=== PATIENT | female | born 1935 | race Caucasian/White ===

== ENCOUNTER 2020-03-07 09:17 | Emergency (ER) | payer MEDICARE ==
[~2020-03-07] VITALS: Ht 172.7 cm; Wt 77.2 kg
--- NOTE | 2020-03-07 09:53 | NUR ---
GAVE INFORMATION THAT PATIENT HAD PROBLEMS ON FRIDAY AFTER [facility] WAS CALLED. 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
[2020-03-07 10:00] LABS: BILIRUBIN,URINE NEGATIVE (NEGATIVE); CLARITY,URINE CLEAR; COLOR,URINE YELLOW; GLUCOSE, URINE (UA) NEGATIVE (NEGATIVE); KETONES,URINE NEGATIVE (NEGATIVE); LEUKOCYTE ESTERASE ,URINE NEGATIVE (NEGATIVE); NITRITE,URINE NEGATIVE (NEGATIVE); PROTEIN,URINE TRACE (NEGATIVE)
--- NOTE | 2020-03-07 10:05 | ED General ---
General Chief Complaint: Neurological Problems Stated Complaint: PER DR PAULINO Nursing Triage Note: AMB TO ROOM WAS TOLD BY [facility] OFFICE TO COME TO ED PATIENT NOT HAPPY ABOUT IT. PATIENT REPORTS SHE FELL GETTING OUT OF [place]HT[place]ON FRIDAY NO C/O AFTER. HOSPICE NUSE WAS AT HOUSE ON SAT SEEING CONCERN THAT SHE MAY BE SLURRING HER WORDS AND LOW SA02 PATIENT DENIES SLURRING WORDS. NO C/O ON ADMIT EXCEPT SHE IS UNDER STRESS. THAT HER IS ON HOSPICE Nursing Sepsis Screen: No Definite Risk Source of Information: Patient, Other (Escapement Maker and PCP clinic) Exam Limitations: No Limitations History of Present Illness Date Seen by Provider: Mar 07, 2020 Time Seen by Provider: 09:30 Initial Comments This pleasant 84-year-old woman presents to the emergency room at the urging of her primary care office. Apparently there have been concerns about her over the weekend. Her raise drill operator reported that she was having difficulty figuring out how to get her vehicle out of park when leaving [place] on Friday. A nurse practitioner who was present there that day reported she had significant swelling in her legs and her pulse oximeter readings were low, in the 70s. She has also been noted to be limping because of a fall out of the bathtub several days ago. She has some bruising on her right medial calf and knee. She walks into the ER with a slight limp. Her 's hospice nurse apparently also reported she had some slurring of speech. It was also reported she has been more argumentative with her . She is under much stress presently with her being on hospice and having recent out-of-town company. She has not wanted to come to the emergency room and is adamant that she does not want to be admitted. She denies any symptoms of infectious illness at this time such as nausea, diarrhea, cough, shortness of breath, or fever. She denies any head or neck injury in relation to her fall. Allergies and Home Medications Allergies Coded Allergies: No Known Drug Allergies (Unverified , 03/07/20) Home Medications Apixaban 5 Mg Tablet, 5 MG PO BID TAKE 2 TABLETS BID X 7 DAYS, THEN 1 TABLET BID Prescribed by: HEMA WOOTEN on 03/07/20 1243 Cefdinir 300 Mg Capsule, 300 MG PO BID Prescribed by: HEMA WOOTEN on 03/07/20 1243 Patient Home Medication List Home Medication List Reviewed: Yes Review of Systems Review of Systems Constitutional: no symptoms reported EENTM: no symptoms reported Respiratory: see HPI Cardiovascular: no symptoms reported Gastrointestinal: no symptoms reported Genitourinary: no symptoms reported : No Musculoskeletal: see HPI Skin: see HPI Psychiatric/Neurological: See HPI Hematologic/Lymphatic: No Symptoms Reported Immunological/Allergic: no symptoms reported Past Jgeyldj-Bnqwyd-Kcdzwl Hx Past Med/Social Hx: Reviewed Nursing Past Med/Soc Hx Patient Social History Alcohol Use: Denies Use Recreational Drug Use: No Smoking Status: Never a Smoker Recent Foreign Travel: No Contact w/Someone Who Travel: No Recent Infectious Disease Expo: No Past Medical History Surgeries: Yes Orthopedic Respiratory: No Cardiac: Yes Hypertension Neurological: No : No Reproductive Disorders: No Genitourinary: No Gastrointestinal: No Musculoskeletal: No Endocrine: Yes Hypothyroidsim Cancer: No Psychosocial: No Physical Exam Vital Signs Vital Signs - First Documented 03/07/20 09:23 Temp 36.4 Pulse 85 Resp 18 B/P (MAP) 199/89 (125) Pulse Ox 97 O2 Delivery Room Air Capillary Refill : Less Than 3 Seconds Height, Weight, BMI Height: '" Weight: lbs. oz. kg; 25.00 BMI Method: General Appearance: No Apparent Distress, WD/WN HEENT: PERRL/EOMI, Normal ENT Inspection Neck: Normal Inspection Respiratory: Lungs Clear, Normal Breath Sounds, No Accessory Muscle Use Cardiovascular: Regular Rate, Rhythm, No Murmur, Other (Mild lower extremity edema equal bilaterally) Gastrointestinal: Normal Bowel Sounds, Non Tender, Soft Extremity: Pedal Edema (Mild, equal bilaterally), Other (Small bruise on the a nterior medial aspect of the right knee. 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 Gait normal except for slight limp from right leg injury) Skin: Normal Color, Warm/Dry, Ecchymosis Progress/Results/Core Measures Suspected Sepsis Recent Fever Within 48 Hours: No Infection Criteria Present: None New/Unexplained Altered Menta: No Sepsis Screen: No Definite Risk SIRS Temperature: Pulse: 85 Respiratory Rate: 18 Laboratory Tests 03/07/20 09:54: White Blood Count 12.7H Blood Pressure 199 /89 Mean: 125 Laboratory Tests 03/07/20 09:54: Creatinine 1.57H, Platelet Count 204, Total Bilirubin 0.8 Results/Orders Lab Results Laboratory Tests Test 03/07/20 09:48 03/07/20 09:54 Range/Units Urine Color YELLOW Urine Clarity CLEAR Urine pH 6.0 5-9 Urine Specific [place] 1.010 L 1.016-1.022 Urine Protein TRACE H NEGATIVE Urine Glucose (UA) NEGATIVE NEGATIVE Urine Ketones NEGATIVE NEGATIVE Urine Nitrite NEGATIVE NEGATIVE Urine Bilirubin NEGATIVE NEGATIVE Urine Urobilinogen 0.2 < = 1.0 MG/DL Urine Leukocyte Esterase NEGATIVE NEGATIVE Urine RBC (Auto) TRACE-L NEGATIVE Urine RBC NONE /HPF Urine WBC 5-10 H /HPF Urine Squamous Epithelial Cells 5-10 /HPF Urine Crystals NONE /LPF Urine Bacteria TRACE /HPF Urine Casts PRESENT /LPF Urine Hyaline Casts 2-5 H /LPF Urine Mucus NEGATIVE /LPF Urine Culture Indicated YES White Blood Count 12.7 H 4.3-11.0 10^3/uL Red Blood Count 3.72 L 3.80-5.11 10^6/uL Hemoglobin 11.4 L 11.5-16.0 g/dL Hematocrit 35 35-52 % Mean Corpuscular Volume 95 80-99 fL Mean Corpuscular Hemoglobin 31 25-34 pg Mean Corpuscular Hemoglobin Concent 32 32-36 g/dL Red Cell Distribution Width 13.3 10.0-14.5 % Platelet Count 204 130-400 10^3/uL Mean Platelet Volume 10.6 9.0-12.2 fL Immature Granulocyte % (Auto) 2 % Neutrophils (%) (Auto) 79 H 42-75 % Lymphocytes (%) (Auto) 8 L 12-44 % Monocytes (%) (Auto) 9 0-12 % Eosinophils (%) (Auto) 1 0-10 % Basophils (%) (Auto) 0 0-10 % Neutrophils # (Auto) 10.1 H 1.8-7.8 10^3/uL Lymphocytes # (Auto) 1.1 1.0-4.0 10^3/uL Monocytes # (Auto) 1.2 H 0.0-1.0 10^3/uL Eosinophils # (Auto) 0.1 0.0-0.3 10^3/uL Basophils # (Auto) 0.0 0.0-0.1 10^3/uL Immature Granulocyte # (Auto) 0.3 H 0.0-0.1 10^3/uL Sodium Level 138 135-145 MMOL/L Potassium Level 3.3 L 3.6-5.0 MMOL/L Chloride Level 104 98-107 MMOL/L Carbon Dioxide Level 23 21-32 MMOL/L Anion Gap 11 5-14 MMOL/L Blood Urea Nitrogen 33 H 7-18 MG/DL Creatinine 1.57 H 0.60-1.30 MG/DL Estimat Glomerular Filtration Rate 32 BUN/Creatinine Ratio 21 Glucose Level 181 H 70-105 MG/DL Calcium Level 8.1 L 8.5-10.1 MG/DL Corrected Calcium 8.6 8.5-10.1 MG/DL Magnesium Level 2.3 1.6-2.4 MG/DL Total Bilirubin 0.8 0.1-1.0 MG/DL Aspartate Amino Transf (AST/SGOT) 43 H 5-34 U/L Alanine Aminotransferase (ALT/SGPT) 39 0-55 U/L Alkaline Phosphatase 50 40-136 U/L B-Type Natriuretic Peptide 179.5 H <100.0 PG/ML Total Protein 6.8 6.4-8.2 GM/DL Albumin 3.4 3.2-4.5 GM/DL Thyroid Stimulating Hormone (TSH) 6.59 H 0.35-4.94 UIU/ML Free Thyroxine 1.02 0.70-1.48 NG/DL My Orders Orders - HEMA MARSH MD Cbc With Automated Diff (03/07/20 09:40) Comprehensive Metabolic Panel (03/07/20 09:40) Magnesium (03/07/20 09:40) Thyroid Stimulating Hormone (03/07/20 09:40) Ua Culture If Indicated (03/07/20 09:40) Us Venous Lower Ext Rt (03/07/20 09:40) Chest 1 View, Ap/Pa Only (03/07/20 09:58) BNP (03/07/20 09:58) Urine Culture (03/07/20 09:48) Ct Head Wo (03/07/20 10:23) Free T4 (Free Thyroxine) (03/07/20 11:16) Apixaban Tablet (Eliquis Tablet) (03/07/20 11:45) Medications Given in ED Current Medications Medications Dose Ordered Sig/Connie Route Start Time Stop Time Status Last Admin Dose Admin Apixaban 2.5 mg ONCE ONCE PO 03/07/20 11:45 03/07/20 11:46 DC 03/07/20 12:18 2.5 MG Vital Signs/I&O 03/07/20 03/07/20 09:23 12:38 Temp 36.4 Pulse 85 71 Resp 18 18 B/P (MAP) 199/89 (125) 156/87 Pulse Ox 97 97 O2 Delivery Room Air Room Air Capillary Refill : Less Than 3 Seconds Blood Pressure Mean: 125 Progress Note : Progress Note Patient was seen and examined. Labs were obtained. Because of the swelling of the right calf after injury, ultrasound was obtained. This revealed a DVT. Patient was started on Eliquis. Since we were already into the afternoon hours, a small dose of 2.5 mg was given in the ER. She will then start her full dose this evening on a regular schedule. We discussed use of compression stockings. In the short-term she should elevate her foot rather than using compression stockings. Then, if compression stockings are needed, she should have graduated stockings appropriately fitted or she should seek care from a lymphedema specialist. Antibiotics were prescribed to treat urinary tract infection and sinusitis. Mild renal impairment was noted. Because of her significant edema, no IV fluids were administered. Instead, she was instructed to push oral hydration. The work-up and treatments were discussed with Gely at Dr. Paulino's office. Diagnostic Imaging Diagonstic Imaging: CT Plain Films/CT/US/NM/MRI: head Comments NAME: JUDITH EUGENE [facility] REC#: [id number] PT STATUS: DEP ER : 1935 PHYSICIAN: HEMA MARSH MD ADMIT DATE: 03/07/20/ER Signed Date of Exam:03/07/20 CT HEAD WO PROCEDURE: CT head without contrast. TECHNIQUE: Multiple contiguous axial images were obtained through the brain without the use of intravenous contrast. Auto Exposure Controls were utilized during the CT exam to meet ALARA standards for radiation dose reduction. INDICATION: Fall. Slurred speech. COMPARISON: None. FINDINGS: Mild generalized cerebral and cerebellar parenchymal volume loss. Moderate leukoaraiosis. No intracranial hemorrhage, mass effect, hydrocephalus, or extra-axial fluid collections. No CT evidence of a territorial infarction. Osseous structures are intact. Mucosal thickening and frothy secretions in the right sphenoid. The mastoids are clear. IMPRESSION: 1. No acute intracranial CT findings. 2. Mucosal thickening and frothy secretions in the right sphenoid sinus. Dictated by: Dictated on workstation # [id number] Dict: 03/07/20 1100 Trans: 03/07/20 1649 [facility] [id number] Interpreted by: DAVID CRESPO MD Electronically signed by: DAVID CRESPO MD 03/07/201648 Reviewed: Reviewed by Me Diagonstic Imaging: Xray Plain Films/CT/US/NM/MRI: chest Comments NAME: JUDITH EUGENE MED REC#: [id number] PT STATUS: REG ER : 1935 PHYSICIAN: HEMA MARSH MD ADMIT DATE: 03/07/20/ER Draft Date of Exam:03/07/20 CHEST 1 VIEW, AP/PA ONLY INDICATION: Hypoxia. COMPARISON: None. FINDINGS: Single frontal radiographic view of the chest was obtained and shows normal cardiac silhouette and pulmonary vasculature. There is calcified aortic atherosclerosis. Lungs show hyperlucent appearance with flattening of the hemidiaphragms consistent with underlying COPD changes. There is 1.6 x 1.1 cm nodular opacity within the lateral margins of the right upper lung. There is no large effusion or pneumothorax. Osseous structures show no acute abnormalities. IMPRESSION: 1. No evidence of failure or focal infiltrate. 2. Nodular opacity within the lateral margins of the right upper lung. Further characterization with dedicated CT chest is recommended and could be performed on nonemergent basis. 2. Background COPD. Dictated on workstation # [id number] Dict: 03/07/20 1032 Trans: 03/07/20 1038 [facility] [id number] Interpreted by: TEZ DIETRICH MD Reviewed: Reviewed by Me Diagonstic Imaging: Ultrasound Plain Films/CT/US/NM/MRI: leg Comments NAME: JUDITH EUGENE MED REC#: [id number] PT STATUS: DEP ER : 1935 PHYSICIAN: HEMA MARSH MD ADMIT DATE: 03/07/20/ER Signed Date of Exam:03/07/20 US VENOUS LOWER EXT RT PROCEDURE: US right lower extremity venous. TECHNIQUE: Multiple Real-time grayscale images were obtained over the right lower extremity in various projections. Additional spectral analysis and color Doppler duplex images were also obtained. INDICATION: Pain and swelling after a fall. FINDINGS: There is segmental nearly completely occlusive deep vein thrombus throughout the length of the femoral vein in the thigh and extending into the popliteal vein. The major calf veins are patent as well as the common femoral vein. The thrombus is hypoechoic and is presumed recent. IMPRESSION: 1. Long segmental deep vein thrombus is nearly completely occlusive throughout the length of the femoral vein within the thigh extending into the popliteal vein. 2. Patency of the common femoral vein. Dictated by: Dictated on workstation # [id number] Dict: 03/07/20 1030 Trans: 03/07/20 1643 [id number] Interpreted by: KWABENA GONZALEZ Electronically signed by: KWABENA GONZALEZ 03/07/20 1643 Reviewed: Reviewed by Me Departure Impression Primary Impression: Right leg DVT Qualified Codes: I82.411 - Acute embolism and thrombosis of right femoral vein Additional Impressions: Abnormal chest x-ray Acute sinusitis Qualified Codes: J01.30 - Acute sphenoidal sinusitis, unspecified Urinary tract infection Qualified Codes: N39.0 - Urinary tract infection, site not specified Renal insufficiency Contusion of right leg Qualified Codes: S80.11XA - Contusion of right lower leg, initial encounter Fall in bathtub Qualified Codes: W18.2XXA - Fall in (into) shower or empty bathtub, initial encounter Disposition: 01 HOME, SELF-CARE Condition: Stable Departure-Patient Inst. Decision time for Depature: 12:20 Referrals: AMBER PAULINO MD (PCP/Family) Primary Care Physician Patient Instructions: Deep Vein Thrombosis (Blood Clots in the Legs), Urinary Tract Infection, Adult (DC) Add. Discharge Instructions: 1. Urinary tract infection - Drink plenty of clear liquids and complete your antibiotic as prescribed. Follow-up on urine culture results with Dr. Paulino's office. 2. Abnormal x-ray - Please discuss your abnormal chest x-ray with Dr. Paulino's office and determine how you will follow this if you do decide to follow with future imaging. 3. DVT (blood clot) - Continue with Eliquis as prescribed. It is important that you do not miss any doses. Be very careful regarding traumas such as falls. If you have any significant injuries including falls in which you hit your head, it is important you present to the emergency room for evaluation. Also present to the emergency room with any unusual bleeding. 4. Sinusitis - This can be treated with the same antibiotic you are taking for bladder infection. 5. Renal insufficiency - Your kidney function is not as good as usual. Please increase clear liquid intake. 6. If you need assistance with getting the blood thinner medications due to cost, please contact Dr. Paulino's office as they have means to help. 7. Follow-up with Dr. Paulino's office in the next 1 to 2 weeks. Please call today for an appointment. All discharge instructions reviewed with patient and/or family. Voiced understanding. Scripts Apixaban (Eliquis) 5 Mg Tablet 5 MG PO BID for 30 Days, #72 TAB TAKE 2 TABLETS BID X 7 DAYS, THEN 1 TABLET BID Prov: HEMA MARSH MD 03/07/20 Cefdinir (Cefdinir) 300 Mg Capsule 300 MG PO BID, #14 CAP 0 Refills Prov: HEMA MARSH MD 03/07/20 Copy Copies To 1: AMBER PAULINO MD, JOSHUA T MD Mar 07, 2020 10:05
[2020-03-07 10:07] LABS: BASOPHILS % (AUTO) 0 % (0-10); EOSINOPHILS # (AUTO) 0.1 10^3/uL (0.0-0.3); EOSINOPHILS % (AUTO) 1 % (0-10); HEMATOCRIT 35 % (35-52); HEMOGLOBIN 11.4 g/dL (11.5-16.0); LYMPHOCYTES # (AUTO) 1.1 10^3/uL (1.0-4.0); LYMPHOCYTES % (AUTO) 8 % (12-44); MEAN CORPUSCULAR HEMOGLOBIN 31 pg (25-34); MEAN CORPUSCULAR HGB CONC 32 g/dL (32-36); MEAN CORPUSCULAR VOLUME 95 fL (80-99); MEAN PLATELET VOLUME 10.6 fL (9.0-12.2); MONOCYTES # (AUTO) 1.2 10^3/uL (0.0-1.0); MONOCYTES % (AUTO) 9 % (0-12); NEUTROPHILS # (AUTO) 10.1 10^3/uL (1.8-7.8); NEUTROPHILS % (AUTO) 79 % (42-75); PLATELET COUNT 204 10^3/uL (130-400); WHITE BLOOD COUNT 12.7 10^3/uL (4.3-11.0)
[2020-03-07 10:10] LABS: BACTERIA,URINE TRACE /HPF
[2020-03-07 10:17] LABS: ALBUMIN 3.4 GM/DL (3.2-4.5); POTASSIUM 3.3 MMOL/L (3.6-5.0)
[2020-03-07 10:18] LABS: CALCIUM 8.1 MG/DL (8.5-10.1)
[2020-03-07 10:20] LABS: TOTAL PROTEIN 6.8 GM/DL (6.4-8.2)
[2020-03-07 10:21] LABS: BILIRUBIN,TOTAL 0.8 MG/DL (0.1-1.0)
[2020-03-07 10:23] LABS: CREATININE SERUM 1.57 MG/DL (0.60-1.30)
[2020-03-07 10:26] LABS: MAGNESIUM 2.3 MG/DL (1.6-2.4)
--- NOTE | 2020-03-07 10:38 | Diagnostic Imaging Report ---
INDICATION: Hypoxia. COMPARISON: None. FINDINGS: Single frontal radiographic view of the chest was obtained and shows normal cardiac silhouette and pulmonary vasculature. There is calcified aortic atherosclerosis. Lungs show hyperlucent appearance with flattening of the hemidiaphragms consistent with underlying COPD changes. There is 1.6 x 1.1 cm nodular opacity within the lateral margins of the right upper lung. There is no large effusion or pneumothorax. Osseous structures show no acute abnormalities. IMPRESSION: 1. No evidence of failure or focal infiltrate. 2. Nodular opacity within the lateral margins of the right upper lung. Further characterization with dedicated CT chest is recommended and could be performed on nonemergent basis. 2. Background COPD. Dictated by: Dictated on workstation # [id number]
--- NOTE | 2020-03-07 10:38 | Diagnostic Imaging Report ---
PROCEDURE: US right lower extremity venous. TECHNIQUE: Multiple Real-time grayscale images were obtained over the right lower extremity in various projections. Additional spectral analysis and color Doppler duplex images were also obtained. INDICATION: Pain and swelling after a fall. FINDINGS: There is segmental nearly completely occlusive deep vein thrombus throughout the length of the femoral vein in the thigh and extending into the popliteal vein. The major calf veins are patent as well as the common femoral vein. The thrombus is hypoechoic and is presumed recent. IMPRESSION: 1. Long segmental deep vein thrombus is nearly completely occlusive throughout the length of the femoral vein within the thigh extending into the popliteal vein. 2. Patency of the common femoral vein. Dictated by: Dictated on workstation # [id number]
--- NOTE | 2020-03-07 11:04 | Diagnostic Imaging Report ---
PROCEDURE: CT head without contrast. TECHNIQUE: Multiple contiguous axial images were obtained through the brain without the use of intravenous contrast. Auto Exposure Controls were utilized during the CT exam to meet ALARA standards for radiation dose reduction. INDICATION: Fall. Slurred speech. COMPARISON: None. FINDINGS: Mild generalized cerebral and cerebellar parenchymal volume loss. Moderate leukoaraiosis. No intracranial hemorrhage, mass effect, hydrocephalus, or extra-axial fluid collections. No CT evidence of a territorial infarction. Osseous structures are intact. Mucosal thickening and frothy secretions in the right sphenoid. The mastoids are clear. IMPRESSION: 1. No acute intracranial CT findings. 2. Mucosal thickening and frothy secretions in the right sphenoid sinus. Dictated by: Dictated on workstation # [id number]
[2020-03-07] MEDS ORDERED: APIXABAN 2.5 MG (ELIQUIS) TABLET PO ONE (11:45)
--- NOTE | 2020-03-07 12:09 | NUR ---
DR FRIAS TO ROOM TO DISCUSS RELULTS WITH PATIENT
[2020-03-07] MEDS ORDERED: CEFD300C3 PO ×2 (12:31→12:43)
[2020-03-07] MEDS ORDERED: APIX2.5T PO (12:31)
[2020-03-07 12:38] VITALS: BP 156/87
[2020-03-07] MEDS ORDERED: APIX5TAB PO (12:43)
== END 2020-03-07 12:38 | disposition home or self-care (01) ==
LOC: EDUNIT# 09:17 → ER 09:19
DX: S80.11XA Contusion of right lower leg, initial encounter (principal); S80.01XA Contusion of right knee, initial encounter; I82.401 Acute embolism and thrombosis of unspecified deep veins of right lower extremity; N28.9 Disorder of kidney and ureter, unspecified; N39.0 Urinary tract infection, site not specified; J01.90 Acute sinusitis, unspecified; R91.8 Other nonspecific abnormal finding of lung field; Z79.01 Long term (current) use of anticoagulants; W18.2XXA Fall in (into) shower or empty bathtub, initial encounter
CPT/HCPCS: 36415; 70450; 71045; 80053; 81000; 83735; 83880; 84439; 84443; 85025; 87088

== ENCOUNTER 2021-02-12 14:05 | Outpatient (RCR) | payer MEDICARE ==
[~2021-02-12 14:05] MED LIST: APIX2.5T PO; APIX5TAB PO; CEFD300C3 PO
== END 2021-03-16 | disposition home or self-care (01) ==
LOC: ONC 14:05
PROVIDERS: ATTEND Internal Medicine Hematology & Oncology
DX: I82.401 Acute embolism and thrombosis of unspecified deep veins of right lower extremity (principal)
CPT/HCPCS: 99214

== ENCOUNTER → 2021-09-07 | Outpatient (CLI) | payer MEDICARE ==
[~2021-09-07] MED LIST changes: +ACET-2267 PO; +AMLO-251 PO; +AREDS 2 PO; +CALC-250 PO; +FERR-84 PO; +FURO-125 PO; +LACT1CAP7 PO; +LEVO88CA4 PO; +LOSA25TA41 PO; +METR-145 PO; +MULT-878 PO; +PANT40TA52 PO; +POTA-51 PO; +PYRI50TA PO; +SYSTANE; +VANC1.2526 IV; +VANC125C5 PO
--- NOTE | 2021-09-07 14:13 | Diagnostic Imaging Report ---
PROCEDURE: US Venous Lower Ext Jacques. TECHNIQUE: Multiple real-time grayscale images were obtained over the lower extremities in various projections, bilaterally. Additional duplex Doppler and color Doppler images were also obtained. INDICATION: Indication: DVT. Comparison 03/07/2020. FINDINGS: The visualized deep and superficial venous system is patent. There is no DVT. IMPRESSION: Negative lower extremity venous Doppler. Dictated by: Dictated on workstation # [id number]
--- NOTE | 2021-09-07 15:24 | Diagnostic Imaging Report ---
Indication: Fall with rib pain and cough. Time of Exam: 1:15 PM Comparison is made with prior chest from 03/07/2020. The heart is enlarged but stable. There appears to be a small left effusion. There is some atelectasis in left base. Lungs are clear. No pneumothorax is seen. No definite displaced rib fractures identified. Impression: Small left effusion. Dictated by: Dictated on workstation # [id number]
--- NOTE | 2021-09-07 15:25 | Diagnostic Imaging Report ---
Indication: Fall with left rib pain. Time of Exam: 1:17 PM Multiple views left ribs were obtained. No displaced rib fracture is detected. There is some minimal pleural fluid in the left base and atelectasis left base. No pneumothorax is seen. Impression: No displaced rib fractures identified. There does appear to be some trace pleural fluid and atelectasis left base. Dictated by: Dictated on workstation # [id number]
== END ==
LOC: RAD 13:30
PROVIDERS: ATTEND Nurse Practitioner Family
DX: J90 Pleural effusion, not elsewhere classified (principal); R60.0 Localized edema
CPT/HCPCS: 71046; 71100; 93970

== ENCOUNTER 2021-10-06 08:31 | Inpatient (IN) | payer MEDICARE ==
[~2021-10-06] VITALS: Ht 172.7 cm; Wt 74.0 kg
[~2021-10-06 08:31] MED LIST changes: -ACET-2267 PO; -AMLO-251 PO; -AREDS 2 PO; -CALC-250 PO; -FERR-84 PO; -FURO-125 PO; -LACT1CAP7 PO; -LEVO88CA4 PO; -LOSA25TA41 PO; -METR-145 PO; -MULT-878 PO; -PANT40TA52 PO; -POTA-51 PO; -PYRI50TA PO; -SYSTANE; -VANC1.2526 IV; -VANC125C5 PO
[2021-10-06 09:22] LABS: BASOPHILS # (AUTO) 0.1 10^3/uL (0.0-0.1); BASOPHILS % (AUTO) 1 % (0-10); EOSINOPHILS # (AUTO) 0.2 10^3/uL (0.0-0.3); EOSINOPHILS % (AUTO) 2 % (0-10); HEMATOCRIT 29 % (35-52); HEMOGLOBIN 9.5 g/dL (11.5-16.0); LYMPHOCYTES # (AUTO) 1.3 10^3/uL (1.0-4.0); LYMPHOCYTES % (AUTO) 14 % (12-44); MEAN CORPUSCULAR HEMOGLOBIN 31 pg (25-34); MEAN CORPUSCULAR HGB CONC 33 g/dL (32-36); MEAN CORPUSCULAR VOLUME 95 fL (80-99); MEAN PLATELET VOLUME 8.8 fL (9.0-12.2); MONOCYTES # (AUTO) 0.9 10^3/uL (0.0-1.0); MONOCYTES % (AUTO) 10 % (0-12); NEUTROPHILS # (AUTO) 6.4 10^3/uL (1.8-7.8); NEUTROPHILS % (AUTO) 73 % (42-75); PLATELET COUNT 454 10^3/uL (130-400); WHITE BLOOD COUNT 8.9 10^3/uL (4.3-11.0)
[2021-10-06 09:27] LABS: ALBUMIN 2.9 GM/DL (3.2-4.5)
[2021-10-06 09:29] LABS: CALCIUM 8.4 MG/DL (8.5-10.1)
[2021-10-06 09:30] LABS: TOTAL PROTEIN 6.3 GM/DL (6.4-8.2)
[2021-10-06 09:32] LABS: BILIRUBIN,TOTAL 0.5 MG/DL (0.1-1.0)
[2021-10-06 09:34] LABS: CREATININE SERUM 0.9 MG/DL (0.60-1.30)
--- NOTE | 2021-10-06 09:49 | Diagnostic Imaging Report ---
INDICATION: Pelvic pain. COMPARISON: None available. TECHNIQUE: Three radiographs of the pelvis and left hip dated 10/06/2021. FINDINGS: Degenerative changes within the lower lumbar spine are partially visualized. The sacroiliac joints and pubic symphysis appear intact. No acute fracture or dislocation. No destructive osseous process. 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 Minimal flattening of the left femoral head is also noted. No suspicious radiopaque foreign body. 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 Dictated by: Dictated on workstation # [id number]
--- NOTE | 2021-10-06 09:49 | Diagnostic Imaging Report ---
EXAMINATION: Chest, 1 view. HISTORY: Edema. COMPARISON: 03/07/2020. FINDINGS: The lung volumes are normal. No focal consolidation is seen. No large pleural effusion or pneumothorax is seen. The cardiomediastinal silhouette is normal in size and contour. There is calcified aortic atherosclerotic plaque. No acute osseous abnormality is seen. IMPRESSION: No acute pleuroparenchymal process. No evidence of overt pulmonary edema. Dictated by: Dictated on workstation # [id number]
[2021-10-06 09:58] LABS: FREE T4 (FREE THYROXINE) 0.83 NG/DL (0.70-1.48)
[2021-10-06] MEDS ORDERED: HYDROcodone/APAP 5 MG/325 MG (LORTAB) TAB PO ONE (10:45)
--- NOTE | 2021-10-06 10:55 | Diagnostic Imaging Report ---
PROCEDURE: US Venous Lower Ext Jacques. TECHNIQUE: Multiple real-time grayscale images were obtained over the lower extremities in various projections, bilaterally. Additional duplex Doppler and color Doppler images were also obtained. INDICATION: Edema. COMPARISON: 09/07/2021. FINDINGS: The examination is slightly limited secondary to patient body habitus. Within the limits of the exam, there is normal flow, compression, and augmentation within the visualized deep venous structures of the bilateral lower extremities. IMPRESSION: No evidence of deep venous thrombosis within the bilateral lower extremities within the limits of the exam. Dictated by: Dictated on workstation # [id number]
[2021-10-06] MEDS ORDERED: cefTRIAXone 1 GM PRE-MIX 50 ML IV STA (12:22)
--- NOTE | 2021-10-06 12:26 | ED General ---
General Chief Complaint: Lower Extremity Stated Complaint: LEG SWELLING Nursing Triage Note: arrives via ems to room 5 with c/o pain 8/10 in her legs. significant swelling noted with blistering and weeping to bilateral legs. patient states she has been waiting for her to pass on, since he was on hospice, before she left him to take care of this chronic exacerbation of leg swelling. She verbaizes hx of HTN, BLOOD CLOTS, THYROID DISEASE, LOWER EXTREMITY SWELLING. Source of Information: Patient, EMS Exam Limitations: No Limitations History of Present Illness Date Seen by Provider: Oct 06, 2021 Time Seen by Provider: 08:59 Initial Comments This 85-year-old woman presents to the emergency room with complaints of severe lower extremity swelling and erythema. She has had progressive problems with worsening swelling over the past couple of years, especially since having a DVT. She received short-term treatment with anticoagulants but no longer is anticoagulated. Today her swelling became so severe that she could not appropriately and safely ambulate, so she called EMS. Patient is taking diuretics but has had worsening swelling despite that. She reports having a difficult time caring for herself while also caring for her who recently after being on hospice for many months. She denies any chest pain or shortness of breath. Dr. Adkins is her primary care provider. She has warm erythema on the skin of the lower legs bilaterally. Patient also had a fall over a week ago and complains of some hip pain. Allergies and Home Medications Allergies Coded Allergies: No Known Drug Allergies (Unverified , 10/06/21) Patient Home Medication List Home Medication List Reviewed: Yes Acetaminophen (Tylenol Extra Strength) 500 Mg Tablet, 500 MG PO TID PRN for PAIN-MILD (1-4), (Reported) Entered as Reported by: NINO CAVAZOS on 10/08/21936 Last Action: Reviewed Cholecalciferol (Vitamin D3) (Vitamin D3) 125 Mcg (5000 Unit) Tablet, 125 MCG PO DAILY, (Reported) Entered as Reported by: NINO CAVAZOS on 10/08/2174 Last Action: Reviewed Ferrous Sulfate (Iron) 325 Mg (65 Mg Iron) Tablet, 325 MG PO Q48H, (Reported) Entered as Reported by: NINO CAVAZOS on 10/08/21 0953 Last Action: Reviewed Furosemide (Lasix) 20 Mg Tablet, 20 MG PO DAILY PRN, (Reported) Entered as Reported by: EILEEN MELÉNDEZ on 10/06/211644 Last Action: Reviewed Levothyroxine Sodium (Levothyroxine) 88 Mcg Capsule, 88 MCG PO DAILY, (Reported) Entered as Reported by: EILEEN MELÉNDEZ on 10/06/21 1640 Last Action: Reviewed Multivitamins-Min/FA/Ginkgo (One Daily For Women 50+ Adv Tb) 400 Mcg-120 Mg Tablet, 1 EACH PO DAILY, (Reported) Entered as Reported by: NINO CAVAZOS on 10/08/21 0935 Last Action: Reviewed Potassium Chloride (Potassium Chloride) 20 Meq Tablet.er, 20 MEQ PO DAILY PRN, (Reported) Entered as Reported by: EILEEN MELÉNDEZ on 10/06/21 164 Last Action: Reviewed Pyridoxine HCl (Vitamin B-6) 50 Mg Tablet, 50 MG PO DAILY, (Reported) Entered as Reported by: NINO CAVAZOS on 10/08/21 0934 Last Action: Reviewed [Areds 2] , 1 CAP PO BID, (Reported) Entered as Reported by: EILEEN MELÉNDEZ on 10/06/211643 Last Action: Reviewed [Systane] , 1 DROP BID, (Reported) Entered as Reported by: EILEEN MELÉNDEZ on 10/06/21 164 Last Action: Reviewed Discontinued Medications Apixaban (Eliquis) 5 Mg Tablet, 5 MG PO BID Discontinued Reason: No Longer Taking Prescribed by: HEMA WOOTEN on 03/07/20 1243 Last Action: Discontinued Cefdinir (Cefdinir) 300 Mg Capsule, 300 MG PO BID Discontinued Reason: No Longer Taking Prescribed by: HEMA WOOTEN on 03/07/20 124 Last Action: Discontinued Review of Systems Review of Systems Constitutional: no symptoms reported EENTM: no symptoms reported Respiratory: no symptoms reported Cardiovascular: other (Peripheral edema) Gastrointestinal: no symptoms reported Genitourinary: no symptoms reported : No Musculoskeletal: see HPI Skin: see HPI Psychiatric/Neurological: No Symptoms Reported Hematologic/Lymphatic: No Symptoms Reported Immunological/Allergic: no symptoms reported Past Rjgjavy-Rengfl-Llrgct Hx Patient Social History Tobacco Use?: No Use of E-Cig and/or Vaping dev: No Substance use?: No Alcohol Use?: No Pt feels they are or have been: No Immunizations Up To Date First/Initial COVID19 Vaccinat: 2020 Second COVID19 Vaccination Neto: 2020 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 oz. kg; 25.00 BMI Method: General Appearance: No Apparent Distress, WD/WN HEENT: PERRL/EOMI, Normal ENT Inspection Neck: Normal Inspection Respiratory: Lungs Clear, Normal Breath Sounds, No Accessory Muscle Use Cardiovascular: Regular Rate, Rhythm, No Murmur, Other (Marked lower extremity edema) Gastrointestinal: Non Tender, Soft Extremity: Swelling, Other (Marked lower extremity edema bilaterally with warm erythema on the lower legs. 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0 g/dL Hematocrit 29 L 35-52 % Mean Corpuscular Volume 95 80-99 fL Mean Corpuscular Hemoglobin 31 25-34 pg Mean Corpuscular Hemoglobin Concent 33 32-36 g/dL Red Cell Distribution Width 19.9 H 10.0-14.5 % Platelet Count 454 H 130-400 10^3/uL Mean Platelet Volume 8.8 L 9.0-12.2 fL Immature Granulocyte % (Auto) 1 % Neutrophils (%) (Auto) 73 42-75 % Lymphocytes (%) (Auto) 14 12-44 % Monocytes (%) (Auto) 10 0-12 % Eosinophils (%) (Auto) 2 0-10 % Basophils (%) (Auto) 1 0-10 % Neutrophils # (Auto) 6.4 1.8-7.8 10^3/uL Lymphocytes # (Auto) 1.3 1.0-4.0 10^3/uL Monocytes # (Auto) 0.9 0.0-1.0 10^3/uL Eosinophils # (Auto) 0.2 0.0-0.3 10^3/uL Basophils # (Auto) 0.1 0.0-0.1 10^3/uL Immature Granulocyte # (Auto) 0.1 0.0-0.1 10^3/uL D-Dimer 2.69 H 0.00-0.49 UG/ML Sodium Level 141 135-145 MMOL/L Potassium Level 4.0 3.6-5.0 MMOL/L Chloride Level 105 98-107 MMOL/L Carbon Dioxide Level 24 21-32 MMOL/L Anion Gap 12 5-14 MMOL/L Blood Urea Nitrogen 15 7-18 MG/DL Creatinine 0.90 0.60-1.30 MG/DL Estimat Glomerular Filtration Rate 63 BUN/Creatinine Ratio 17 Glucose Level 106 H 70-105 MG/DL Calcium Level 8.4 L 8.5-10.1 MG/DL Corrected Calcium 9.3 8.5-10.1 MG/DL Magnesium Level 2.0 1.6-2.4 MG/DL Total Bilirubin 0.5 0.1-1.0 MG/DL Aspartate Amino Transf (AST/SGOT) 18 5-34 U/L Alanine Aminotransferase (ALT/SGPT) 12 0-55 U/L Alkaline Phosphatase 67 40-136 U/L C-Reactive Protein High Sensitivity 2.94 H 0.00-0.50 MG/DL B-Type Natriuretic Peptide 75.5 <100.0 PG/ML Total Protein 6.3 L 6.4-8.2 GM/DL Albumin 2.9 L 3.2-4.5 GM/DL Thyroid Stimulating Hormone (TSH) 6.32 H 0.35-4.94 UIU/ML Free Thyroxine 0.83 0.70-1.48 NG/DL My Orders Orders - HEMA AMRSH MD Bnp [place] (10/06/21 09:12) Cbc With Automated Diff (10/06/21 09:12) Comprehensive Metabolic Panel (10/06/21 09:12) Hs C Reactive Protein (10/06/21 09:12) Fibrin Degradation Products (10/06/21 09:12) Magnesium (10/06/21 09:12) Thyroid Stimulating Hormone (10/06/21 09:12) Free T4 (Free Thyroxine) (10/06/21 09:12) Chest 1 View, Ap/Pa Only (10/06/21 09:12) Pelvis With Left Hip 2-3 Views (10/06/21 09:18) Us Venous Lower Ext Gracie (10/06/21 10:05) Hydrocodone/Apap 5/325 Tablet (Lortab 5 (10/06/21 10:45) Furosemide Injection (Lasix Injection) (10/06/21 12:30) Potassium Chloride (Tablet) (Klor Con Ta (10/06/21 12:30) Brian Cath (10/06/21 12:20) Ceftriaxone 1 Gm Pre-Mix (Rocephin 1 Gm (10/06/21 12:22) Wound Culture (10/06/21 12:23) Medications Given in ED Vital Signs/I&O 10/06/21 08:40 Pulse 101 Resp 20 B/P (MAP) 132/65 (87) Pulse Ox 97 O2 Delivery Room Air Capillary Refill : Blood Pressure Mean: 87 Progress Note : Progress Note Case was reviewed with Dr. ADKINS. Treatment was initiated with Lasix and potassium. Rocephin was given for presumed cellulitis. Culture was obtained by aspirating from a blister on the right leg. Bilateral lower extremity Doppler exams revealed no DVT. Diagnostic Imaging Diagonstic Imaging: Ultrasound Plain Films/CT/US/NM/MRI: leg Comments NAME: JUDITH EUGENE MED REC#: [id number] PT STATUS: REG ER : 1935 PHYSICIAN: HEMA MARSH MD ADMIT DATE: 10/06/21/ER Signed Date of Exam:10/06/21 US VENOUS LOWER EXT GRACIE PROCEDURE: US Venous Lower Ext Gracie. TECHNIQUE: Multiple real-time grayscale images were obtained over the lower extremities in various projections, bilaterally. Additional duplex Doppler and color Doppler images were also obtained. INDICATION: Edema. COMPARISON: 09/07/2021. FINDINGS: The examination is slightly limited secondary to patient body habitus. Within the limits of the exam, there is normal flow, compression, and augmentation within the visualized deep venous structures of the bilateral lower extremities. IMPRESSION: No evidence of deep venous thrombosis within the bilateral lower extremities within the limits of the exam. Dictated by: Dictated on workstation # [id number] Dict: 10/06/21 1046 Trans: 10/06/21 1120 [id number] Interpreted by: MEENA HELLER MD Electronically signed by: MEENA HELLER MD 10/06/21 1120 Diagonstic Imaging: Xray Plain Films/CT/US/NM/MRI: pelvis, hip Comments NAME: JUDITH EUGENE MED REC#: [id number] PT STATUS: REG ER : 1935 PHYSICIAN: HEMA MARSH MD ADMIT DATE: 10/06/21/ER Signed Date of Exam:10/06/21 PELVIS WITH LEFT HIP 2-3 VIEWS INDICATION: Pelvic pain. COMPARISON: None available. TECHNIQUE: Three radiographs of the pelvis and left hip dated 10/06/2021. FINDINGS: Degenerative changes within the lower lumbar spine are partially visualized. The sacroiliac joints and pubic symphysis appear intact. No acute fracture or dislocation. No destructive osseous process. 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 Minimal flattening of the left femoral head is also noted. No suspicious radiopaque foreign body. 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 Dictated by: Dictated on workstation # [id number] Dict: 10/06/21 0946 Trans: 10/06/21 0953 [id number] [id number] Interpreted by: MEENA HELLER MD Electronically signed by: MEENA HELLER MD 10/06/21 0953 Diagonstic Imaging: Xray Plain Films/CT/US/NM/MRI: chest Comments NAME: JUDITH EUGENE [facility] REC#: [id number] PT STATUS: REG ER : 1935 PHYSICIAN: HEMA MARSH MD ADMIT DATE: 10/06/21/ER Signed Date of Exam:10/06/21 CHEST 1 VIEW, AP/PA ONLY EXAMINATION: Chest, 1 view. HISTORY: Edema. COMPARISON: 03/07/2020. FINDINGS: The lung volumes are normal. No focal consolidation is seen. No large pleural effusion or pneumothorax is seen. The cardiomediastinal silhouette is normal in size and contour. There is calcified aortic atherosclerotic plaque. No acute osseous abnormality is seen. IMPRESSION: No acute pleuroparenchymal process. No evidence of overt pulmonary edema. Dictated by: Dictated on workstation # [id number] Dict: 10/06/2146 Trans: 10/06/2148 [id number] Interpreted by: GINI KELSEY DO Electronically signed by: GINI KELSEY DO 10/06/21 0948 Departure Communication (Admissions) Time/Spoke to Admitting Phy: 12:20 Dr. Adkins Impression Primary Impression: Cellulitis Qualified Codes: L03.119 - Cellulitis of unspecified part of limb Additional Impressions: Lower extremity edema Immobility Hypothyroidism Qualified Codes: E03.9 - Hypothyroidism, unspecified Disposition: ADMITTED INPATIENT Condition: Stable Admissions Decision to Admit Reason: Admit from ER (General) Decision to Admit/Date: Oct 08, 2021 Time/Decision to Admit Time: 12:20 Departure-Patient Inst. Referrals: AMBER ADKINS MD (PCP/Family) Primary Care Physician HEMA MARSH MD Oct 06, 2021 12:26
[2021-10-06] MEDS ORDERED: KCL 10 MEQ TAB (MICRO K) PO ONE (12:30)
[2021-10-06] MEDS ORDERED: FUROSEMIDE 40 MG/4 ML INJ (LASIX) IVP ONE (12:30)
[2021-10-06] MEDS ORDERED: KCL 20 MEQ TAB (K-DUR) PO ONE (12:40)
[2021-10-06 13:33] LABS: BILIRUBIN,URINE NEGATIVE (NEGATIVE); CLARITY,URINE CLEAR; COLOR,URINE YELLOW; GLUCOSE, URINE (UA) NEGATIVE (NEGATIVE); KETONES,URINE NEGATIVE (NEGATIVE); LEUKOCYTE ESTERASE ,URINE 1+ (NEGATIVE); NITRITE,URINE NEGATIVE (NEGATIVE); PROTEIN,URINE NEGATIVE (NEGATIVE)
[2021-10-06 13:43] LABS: BACTERIA,URINE NEGATIVE /HPF; RENAL EPITHELIAL CELLS,URINE 0-2 /HPF
[2021-10-06 14:09] VITALS: BP 168/80
[2021-10-06] MEDS ORDERED: PATIENT MAY USE OWN MED,SINGLE MED PO SCH (14:30)
[2021-10-06 15:24] VITALS: BP 146/79
[2021-10-06] MEDS ORDERED: LEVO88CA4 PO (16:40)
[2021-10-06] MEDS ORDERED: AMLO-251 PO (16:41)
[2021-10-06] MEDS ORDERED: SYSTANE (16:43)
[2021-10-06] MEDS ORDERED: AREDS 2 PO (16:44)
[2021-10-06] MEDS ORDERED: FURO-125 PO (16:45)
[2021-10-06] MEDS ORDERED: POTA-51 PO (16:46)
[2021-10-06 19:38] VITALS: BP 105/56
[2021-10-06] MEDS: [UNRECOGNIZED DRUG - OTHER] PO SCH (20:27)
[2021-10-06] MEDS: HYDROcodone/APAP 5 MG/325 MG (LORTAB) TAB PO PRN (23:59)
[2021-10-07] VITALS (7 sets, daily range): BP systolic 111–145; BP diastolic 54–71
[2021-10-07] MEDS: KCL 20 MEQ TAB (K-DUR) PO SCH (06:31)
[2021-10-07] MEDS: FUROSEMIDE 40 MG/4 ML INJ (LASIX) IV SCH (06:31)
[2021-10-07 06:39] LABS: BASOPHILS % (AUTO) 0 % (0-10); EOSINOPHILS # (AUTO) 0.4 10^3/uL (0.0-0.3); EOSINOPHILS % (AUTO) 5 % (0-10); HEMATOCRIT 27 % (35-52); HEMOGLOBIN 8.4 g/dL (11.5-16.0); LYMPHOCYTES # (AUTO) 1.8 10^3/uL (1.0-4.0); LYMPHOCYTES % (AUTO) 20 % (12-44); MEAN CORPUSCULAR HEMOGLOBIN 30 pg (25-34); MEAN CORPUSCULAR HGB CONC 32 g/dL (32-36); MEAN CORPUSCULAR VOLUME 96 fL (80-99); MONOCYTES % (AUTO) 11 % (0-12); NEUTROPHILS # (AUTO) 5.7 10^3/uL (1.8-7.8); NEUTROPHILS % (AUTO) 64 % (42-75); PLATELET COUNT 376 10^3/uL (130-400)
[2021-10-07 07:08] LABS: POTASSIUM 3.8 MMOL/L (3.6-5.0)
[2021-10-07 07:09] LABS: CALCIUM 7.8 MG/DL (8.5-10.1)
[2021-10-07 07:13] LABS: CREATININE SERUM 0.81 MG/DL (0.60-1.30)
--- NOTE | 2021-10-07 08:47 | History & Physical ---
History of Present Illness History of Present Illness Reason for visit/HPI Pt is an 85 y/o female who is known to me from clinic. She has been caregiving for her who last week, and admits to neglecting to care for herself while caring for him. She reports that her legs have been progressively more swollen and more painful to use for ambulation with pt becoming so worried about falling that she finally called EMS for transport to the ER. Date of Admission Oct 06, 2021 at 12:33 Date Seen by a Provider: Oct 07, 2021 Time Seen by a Provider: 08:15 Attending Physician Amber Adkins MD Admitting Physician Admitting Physician: Amber Adkins MD Attending Physician: Amber Adkins MD Consult Allergies and Home Medications Allergies Coded Allergies: No Known Drug Allergies (Unverified , 10/06/21) Patient Home Medication List Home Medication List Reviewed: Yes Amlodipine Besylate (Amlodipine Besylate) 10 Mg Tablet, 10 MG PO DAILY, (Reported) Entered as Reported by: EILEEN MELÉNDEZ on 10/06/211640 Last Action: Held Furosemide (Lasix) 20 Mg Tablet, 20 MG PO DAILY PRN, (Reported) Entered as Reported by: EILEEN MELÉNDEZ on 10/06/211644 Last Action: Reviewed Levothyroxine Sodium (Levothyroxine) 88 Mcg Capsule, 88 MCG PO DAILY, (Reported) Entered as Reported by: EILEEN MELÉNDEZ on 10/06/21 1640 Last Action: Converted Potassium Chloride (Potassium Chloride) 20 Meq Tablet.er, 20 MEQ PO DAILY PRN, (Reported) Entered as Reported by: EILEEN MELÉNDEZ on 10/06/211645 Last Action: Held [Areds 2] , 1 CAP PO BID, (Reported) Entered as Reported by: EILEEN MELÉNDEZ on 10/06/211643 Last Action: Reviewed [Systane] , 1 DROP BID, (Reported) Entered as Reported by: EILEEN MELÉNDEZ on 10/06/211642 Last Action: Reviewed Discontinued Medications Apixaban (Eliquis) 5 Mg Tablet, 5 MG PO BID Discontinued Reason: No Longer Taking Prescribed by: HEMA WOOTEN on 03/07/20 1243 Last Action: Discontinued Cefdinir (Cefdinir) 300 Mg Capsule, 300 MG PO BID Discontinued Reason: No Longer Taking Prescribed by: HEMA WOOTEN on 03/07/20 1243 Last Action: Discontinued Past Qnqdcki-Yfjier-Xqhlki Hx Patient Social History Marrital Status: Number of Children: 1 Number of living children: 1 Living Status: recently , pt now living at home alone Employed/Student: retired Tobacco Use?: No Smoking Status: Never a Smoker Use of E-Cig and/or Vaping dev: No Substance use?: No Alcohol Use?: No Pt feels they are or have been: No Immunizations Up To Date First/Initial COVID19 Vaccinat: 2020 Second COVID19 Vaccination Neto: 2020 Current Status status: No Advance Directives: No Communicates: Verbally Primary Language: Syriac Preferred Spoken Language: Syriac Is interpretation needed?: No Implanted or Applied Medical D: None Past Medical History Surgeries: Orthopedic Currently Using CPAP: No Currently Using BIPAP: No Hypertension Hypothyroidsim Loss of Vision: Denies Family Medical History Reviewed and Corrections made Heart Disease, Hypertension Review of Systems Constitutional: No chills, No dizziness, No fever; malaise, weakness EENTM: No hoarseness, No throat pain Respiratory: No cough, No dyspnea on exertion, No short of breath Cardiovascular: edema; No palpitations Gastrointestinal: No abdominal pain, No constipation, No diarrhea, No nausea, No vomiting Genitourinary: no symptoms reported Musculoskeletal: muscle weakness, other (lower leg weakness, pain, swelling) Skin: change in color (redness from mid calves to feet) Psychiatric/Neurological: Denies Anxiety, Denies Depressed, Denies Headache; Weakness All Other Systems Reviewed Negative Unless Noted: Yes Physical Exam Vital Signs Vital Signs - First Documented 10/06/21 10/06/21 08:40 14:09 Temp 36.4 Pulse 101 Resp 20 B/P (MAP) 132/65 (87) Pulse Ox 97 O2 Delivery Room Air Capillary Refill : Height, Weight, BMI Height: '" Weight: lbs. oz. kg; 25.91 BMI Method: General Appearance: No Apparent Distress, WD/WN HEENT: PERRL/EOMI, Pharynx Normal Neck: Full Range of Motion, Non Tender, Supple Respiratory: Chest Non Tender, Lungs Clear, Normal Breath Sounds, No Accessory Muscle Use, No Respiratory Distress Cardiovascular: Regular Rate, Rhythm, Other (3+ pitting edema) Gastrointestinal: No Organomegaly, Non Tender, Soft Neurologic/Psychiatric: Alert, Oriented x3, No Motor/Sensory Deficits, Normal Mood/Affect Skin: Warm/Dry, Erythema (lower leg to feet), Other (skin wrinkled, crusted wo unds on lower legs anterior, dirt on feet, between toes, elongated toenails) Assessment/Plan Assessment and Plan Cellulitis Severe lower extremity edema Hypothyroidisim Anemia Hypoalbuminemia Elevated DDimer Generalized weakness Cellulitis - pt on IV antibiotics, wait on urine culture report and monitor symptoms closely. Severe lower extremity edema - pt on iv lasix, monitor creatinine, urine output, and will adjust to oral medications once pt is improved. Hypothyroidisim - resume levothyroxine Anemia - monitor cbc in morning, will need to add iron panel to blood in lab. Hypoalbuminemia - increase protein in diet, dietary consult for recommendations for pt pending how she is eating her meals now that she is not neglecting herself for care of her . Elevated DDimer - pt had negative dopplers. Generalized weakness - will start therapy tomorrow if pt's leg pain is improved. Pt will likely need to be admitted to the assisted for a short time due to h er weakenss -the pt does not have any family near her and relies on her pentecostalism family for care/help. Admission Diagnosis Cellulitis Severe lower extremity edema Hypothyroidisim Anemia Hypoalbuminemia Elevated DDimer Admission Status: Inpatient Order (span 2 midnights) Reason for Inpatient Admission: inpatient admission for cellulitis, fluid overload, and weakness, will need admission for at least 3 midnights. AMBER ADKINS MD Oct 07, 2021 08:47
[2021-10-07] MEDS: [UNRECOGNIZED DRUG - OTHER] PO SCH ×2 (09:25→19:58)
[2021-10-07] MEDS ORDERED: cefTRIAXone 1 GM PRE-MIX 50 ML IV SCH (10:15)
[2021-10-07] MEDS ORDERED: PANTOPRAZOLE 40 MG (PROTONIX) TAB PO ONE (10:15)
[2021-10-07] MEDS ORDERED: LACTOBACILLUS ACIDOPHILUS (PROBIOTIC) CAPSULE ONE (10:59)
[2021-10-07] MEDS: LEVOTHYROXINE 88 MCG (LEVOTHORID) TAB PO SCH (11:03)
[2021-10-07] MEDS: LACTOBACILLUS ACIDOPHILUS (PROBIOTIC) CAPSULE PO SCH ×2 (11:03→18:22)
[2021-10-07] MEDS: ENOXAPARIN 40 MG/0.4 ML (LOVENOX) SYR SC SCH (11:03)
[2021-10-07] MEDS ORDERED: ACETAMINOPHEN 500 MG TAB (TYLENOL) ONE (20:04)
[2021-10-07] MEDS ORDERED: ACETAMINOPHEN 500 MG TAB (TYLENOL) PO PRN (20:15)
[2021-10-08 03:31] VITALS: BP 155/81
[2021-10-08] MEDS: FUROSEMIDE 40 MG/4 ML INJ (LASIX) IV SCH (05:58)
[2021-10-08] MEDS: KCL 20 MEQ TAB (K-DUR) PO SCH (05:58)
[2021-10-08] MEDS: LEVOTHYROXINE 88 MCG (LEVOTHORID) TAB PO SCH (05:58)
[2021-10-08 07:32] VITALS: BP 130/66
--- NOTE | 2021-10-08 07:35 | Progress Note ---
Subjective Subjective Date Seen by Provider: Oct 08, 2021 Time Seen by Provider: 07:21 Lesly Green is an 85y/o F who is being seen for follow up due to cellulitis and lower extremity edema. She states that she is feeling better this morning. Had a fever last night but she was given tylenol and the fever then resolved. Says that her LE edema is improving. Reports that she has been urinating often. Able to drink water and says that her appetite has been good. Review of Systems General: No Chills; Other (fever) HEENT: No Head Aches, No Visual Changes Pulmonary: No Cough Cardiovascular: No: Chest Pain, Palpitations Gastrointestinal: Diarrhea (occasional); No: Abdominal Pain, Constipation Musculoskeletal: leg pain, foot pain Neurological: No: Numbness, Change in speech All Other Systems Reviewed All Other Systems Reviewed: Yes Objective Exam Vital Signs Vital Signs Date Time Temp Pulse Resp B/P (MAP) Pulse Ox O2 Delivery O2 Flow Rate FiO2 10/08/21 03:31 37.2 87 20 155/81 (105) 92 Room Air 10/07/21 23:53 37.7 80 18 145/71 (95) 92 Room Air 10/07/21 21:57 37.6 10/07/21 21:57 37.6 10/07/21 20:05 38.3 10/07/21 19:57 Room Air 10/07/21 19:22 38.3 92 18 111/61 (78) 93 Room Air 10/07/21 15:25 37.9 73 19 122/68 (86) 93 Room Air 10/07/21 11:24 37.0 76 18 112/54 (73) 94 Room Air 10/07/21 08:00 Room Air 10/07/21 07:45 37.0 70 18 145/65 (91) 93 Room Air I & O 10/08/21 07:00 Intake Total 2085 ml Output Total 4900 ml Balance -2815 ml General Appearance: No Apparent Distress, WD/WN HEENT: PERRL/EOMI; No Photophobia Neck: Non Tender, Supple Respiratory: Chest Non Tender, No Accessory Muscle Use, No Respiratory Distress, Wheezing (slight in right lower lung field) Cardiovascular: Regular Rate, Rhythm, Other (pitting edema improving, wrinking of skin on lower legs to knees, edema of posterior thighs) Gastrointestinal: No Organomegaly, Non Tender, Soft Extremity: Calf Tenderness (tender into thigh B/L), Pedal Edema Neurologic/Psychiatric: Alert, Oriented x3, No Motor/Sensory Deficits, Normal Mood/Affect Skin: Warm/Dry, Erythema (lower leg to feet), Other (skin wrinkled, crusted wounds on lower legs anterior, dirt on feet, between toes, elongated toenails) Lymphatic: No Adenopathy Results Lab Microbiology 10/06/21 Gram Stain - Final, Resulted 10/06/21 Wound Culture - Preliminary, Resulted Corynebacterium striatum Pseudomonas aeruginosa See Comments Assessment/Plan Assessment/Plan Assessment and Plan Cellulitis Severe lower extremity edema Hypothyroidisim Anemia Hypoalbuminemia Elevated DDimer Generalized weakness Cellulitis - pt on IV antibiotics, ceftriaxone (day 2/6), wound culture has returned, changing antibiotics today - WOUND CULTURE RESULT Preliminary Verified 10/07/21- 1624Preliminary RML Source: CYST/ABSCESS / LEG, LEFT Order Location: Emergency Room - [place] Organism 1 Corynebacterium striatum Moderate Growth Organism 2 Pseudomonas aeruginosa Rare TESTING IN PROGRESS Organism 3 SEE COMMENTS . Recent literature reviews indicate Corynebacterium remain susceptible to vancomycin, linezolid, and tigecycline. In addition, most strains tested were susceptible to daptomycin and quinupristin-dalfopristin, as well as to rifampin, tetracycline, gentamicin, and meropenem. - Severe lower extremity edema - pt on iv lasix, monitor creatinine, urine output, and will adjust to oral medications once pt is improved. - awaiting CMP results for today Hypothyroidisim - resume levothyroxine Anemia - monitor cbc, will need to add iron panel to blood in lab, awaiting results for today Hypoalbuminemia - increase protein in diet, dietary consult for recommendations for pt pending how she is eating her meals now that she is not neglecting herself for care of her . Elevated DDimer - pt had negative dopplers. Generalized weakness - start PT today DVT prophylaxis- Lovenox GI prophylaxis- Protonix Diet: low sodium DNR Pt will likely need to be admitted to the [facility] for a short time due to her weakenss -the pt does not have any family near her and relies on her protestant family for care/help. Supervisory-Addendum Brief Verification & Attestation Participated in pt care: history, MDM, physical Personally performed: exam, history, MDM, supervision of care Care discussed with: Medical Student Procedures: n/a Results interpretation: Verified all documentation agree with student note antibiotic regimen changed to IV vancomycin - will wait on culture sensitivity reports, (rocephin dc'd) lasix changed from 40mg iv daily to 20mg po bid, monitor chem panel, renal function, may decrease further added ensure high protein to diet with meals thigh high compression scd's repeat labs in morning physical therapy eval inpt rehab eval the pt is unable to care for herself at home right now, goal will be to eventually dc back to home if she is strong enough to care for herself on dc. FAWAD WYMAN Oct 08, 2021 07:35 AMBER PAULINO MD Oct 08, 2021 08:48
[2021-10-08 08:02] LABS: HEMATOCRIT 30 % (35-52); HEMOGLOBIN 9.6 g/dL (11.5-16.0); MEAN CORPUSCULAR HEMOGLOBIN 31 pg (25-34); MEAN CORPUSCULAR HGB CONC 32 g/dL (32-36); MEAN CORPUSCULAR VOLUME 96 fL (80-99); MEAN PLATELET VOLUME 9.4 fL (9.0-12.2); PLATELET COUNT 420 10^3/uL (130-400); WHITE BLOOD COUNT 9.8 10^3/uL (4.3-11.0)
[2021-10-08 08:27] LABS: ALBUMIN 2.5 GM/DL (3.2-4.5); BILIRUBIN,TOTAL 0.2 MG/DL (0.1-1.0); CALCIUM 8.1 MG/DL (8.5-10.1); CREATININE SERUM 1.14 MG/DL (0.60-1.30); POTASSIUM 3.6 MMOL/L (3.6-5.0); TOTAL PROTEIN 5.7 GM/DL (6.4-8.2)
[2021-10-08] MEDS: [UNRECOGNIZED DRUG - OTHER] PO SCH ×2 (08:34→20:23)
[2021-10-08] MEDS: LACTOBACILLUS ACIDOPHILUS (PROBIOTIC) CAPSULE PO SCH ×3 (08:35→17:06)
[2021-10-08] MEDS: PANTOPRAZOLE 40 MG (PROTONIX) TAB PO SCH (08:35)
[2021-10-08] MEDS: ENOXAPARIN 40 MG/0.4 ML (LOVENOX) SYR SC SCH (08:36)
[2021-10-08] MEDS ORDERED: VANCOMYCIN INJECTION 0.1 MG in NS (IVPB) 250 ML IV SCH (08:45)
[2021-10-08] MEDS ORDERED: PYRI50TA PO (09:34)
[2021-10-08] MEDS ORDERED: CALC-250 PO (09:35)
[2021-10-08] MEDS ORDERED: MULT-878 PO (09:35)
[2021-10-08] MEDS ORDERED: ACET-2267 PO (09:37)
[2021-10-08] MEDS ORDERED: FERR-84 PO (09:53)
[2021-10-08] MEDS: VANCOMYCIN 1250 MG/NS 250 ML IVPB IV SCH ×2 (10:42)
--- NOTE | 2021-10-08 11:01 | Physical Therapy Evaluation ---
PT Evaluation-General Medical Diagnosis Admission Date Oct 06, 2021 at 12:33 Medical Diagnosis: cellulitis bilateral LE/edema/immobility Onset Date: Oct 06, 2021 Therapy Diagnosis Therapy Diagnosis: generalized weakness/debility Precautions Precautions/Isolations: Fall Prevention, Standard Precautions Referral Physician: Jed Reason for Referral: Evaluation/Treatment Medical History Pertinent Medical History: HTN, Hypothroidism Current History EMS secondary to bilateral LE edema with blistering and inability to care for self Reviewed History: Yes Social History Home: Single Level Current Living Status: Alone Prior Prior Level of Function SCALE: Activities may be completed with or without assistive devices. 0-Zdriomerci-ambiglr completes the activity by him/herself with no assistance from a helper. 5-Set-up or Clean-up Assistance-helper sets up or cleans up; patient completes activity. Haysi assists only prior to or following the activity. 4-Supervision or Touching Assistance-helper provides verbal cues and/or touching/steadying and/or contact guard assistance as patient completes activity. Assistance may be provided throughout the activity or intermittently. 3-Partial/Moderate Assistance-helper does LESS THAN HALF the effort. [place]i li fts, holds or supports trunk or limbs, but provides less than half the effort. 2-Substantial/Maximal Assistance-helper does MORE THAN HALF the effort. [place] lifts or holds trunk or limbs and provides more than half the effort. 8-Hltivqwdc-tngody does ALL the effort. Patient does none of the effort to complete the activity. Or, the assistance of 2 or more helpers is required for the patient to complete the activity. If activity was not attempted, code reason: 7-Patient Refused. 9-Not Applicable-not attempted and the patient did not perform the activity before the current illness, exacerbation or injury. 10-Not Attempted due to Environmental Limitations-(lack of equipment, weather restraints, etc.). 88-Not Attempted due to Medical Conditions or Safety Concerns. Bed Mobility: 6 Transfers (B,C,W/C): 6 Gait: 6 Indoor Mobility (Ambulation): Independent Prior Devices Use: Walker PT Evaluation-Current Subjective Patient agrees to PT. Pain Numeric Pain Scale: 7 Location: Right, Left Location Body Site: Calf Pain Description: Acute Objective Patient Orientation: Normal For Age Attachments: Brian Catheter, IV ROM/Strength ROM Lower Extremities bilateral LE limited due to pain Strength Lower Extremities 3/5 grossly bilateral LE all planes Integumentary/Posture Integumentary refer to nursing notes Bladder Incontinence: Brian Cath Posture WFL Neuromuscular (Tone, Coordination, Reflexes) diminished coordination due to weakness Sensory Vision: Wears Glasses Hearing: Functional Transfers Lying to Sitting/Side of Bed(Q: 3 Sit to Stand (QC): 3 Chair/Yqd-le-Sojvi Xfer(QC): 4 Gait Does the Patient Walk?: Yes Mode of Locomotion: Walk Anticipated Mode of Locomotion: Walk Walk 10 feet (QC): 3 Walk 50 ft with 2 Turns(QC): 88 Walk 150 ft (QC): 88 Distance: 25' Gait Assistive Device: FWW Comments/Gait Description very slow, step to gait sequence Balance Sitting Static: Normal Sitting Dynamic: Normal Standing Static: Fair Standing Dynamic: Fair Assessment/Needs 85 y.o. female, will benefit from skilled PT to address functional strength and mobility to improve current LOF to safely return to home at maximum LOF. 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 Correction Goals PT Correction Goals Time Frame: Oct 27, 2021 Roll Left & Right (QC): 6 Sit to Lying (QC): 6 Lying-Sitting on Side/Bed(QC): 6 Sit to Stand (QC): 6 Chair/Cyw-tb-Ibkrq Xfer(QC): 6 Toilet Transfer (QC): 6 Walk 10 feet (QC): 6 Walk 50ft with 2 Turns (QC): 6 Walk 150 ft (QC): 6 PT Plan Problem List Problem List: Activity Tolerance, Functional Strength, Safety, Balance, Gait, Transfer, Bed Mobility, ROM Treatment/Plan Treatment Plan: Continue Plan of Care Treatment Plan: Bed Mobility, Education, Functional Activity Omari, Functional Strength, Gait, Safety, Therapeutic Exercise, Transfers Treatment Duration: Oct 27, 2021 Frequency: 6 times per week Estimated Hrs Per Day: .25 hour per day Patient and/or Family Agrees t: Yes Time/GCodes Time In: 1030 Time Out: 1043 Total Billed Treatment Time: 13 Total Billed Treatment 1 visit EVModC 13 min DEBORAH BURNS PT Oct 08, 2021 11:01
[2021-10-08 11:39] VITALS: BP 113/57
--- NOTE | 2021-10-08 12:06 | Podiatry Progress Note ---
Standard Progress Note Progress Notes/Assess & Plan Date Seen by a Provider: Oct 08, 2021 Time Seen by a Provider: 12:04 Progress/Assessment & Plan Consultation dictated. Foot care given. Final Diagnosis Onychomycosis, peripheral neuropathy, Subungal abscess R1 toe, Foot Drop (bilateral) CHERELLE HARVEY DPJacquie Oct 08, 2021 12:06
--- NOTE | 2021-10-08 13:37 | CONSULTATION REPORT ---
DATE OF SERVICE: 10/08/2021 REASON FOR CONSULTATION: Foot care. HISTORY OF PRESENT ILLNESS: This 85-year-old female was admitted secondary to muscle weakness and swelling to the lower extremities. She is unable to reach for and care for her feet. She indicated that she has been working so much on trying to take care of her late that she neglected herself. The legs became more swollen and painful and was subsequently admitted through the ER. She denies any current fever, chills, nausea or vomiting. She indicates that she is working with physical therapy and improving in general as far as strength and mobility. PAST MEDICAL HISTORY: Several muscle weakness, hypertension, hypothyroidism and currently she is dealing with cellulitis of bilateral lower extremity. ALLERGIES: THE PATIENT HAS NO KNOWN DRUG ALLERGIES. CURRENT MEDICATIONS: Listed on the patient's chart. Current temperature is 37.8. Laboratories include white blood cell count of 9.8 thousand. PHYSICAL EXAMINATION: LOWER EXTREMITY: The patient has multiple folds to the lower extremity bilaterally around the calf and lower leg consistent with significant decrease in edema. She currently has pitting edema to the foot and ankle and lower leg. There is 2/4 dorsalis pedis pulse bilaterally, 0/4 posterior tibial pulse on the right, 1/4 on the left. Cap refill time is less than 3 seconds. NEUROLOGIC: The patient has intact protective sensation with 10 gram monofilament wire examination bilaterally with the exception of the left heel. The patient has decreased vibratory sensation to the forefoot bilaterally as well as decreased deep tendon reflexes to the Achilles tendon. INTEGUMENTARY: The patient has thick yellow dystrophic toenails with subungual debris R1, 2, 4, 5 and L1, 2, 3, 5 digits. There is granular tissue with serous exudate associated with the hyponychium of the R1 toe. There was no proximal streaking, no significant active exudate. No gross signs of bacterial infection at this point. It seemed to be more fungal at this point. In regards to the lower legs, there are multiple areas of dry scaly skin. The erythema is present to the anterior leg bilaterally with some discomfort with palpation. MUSCULOSKELETAL FINDINGS: The patient has 3/5 muscle strength for plantarflexion and inversion, 1/5 muscle strength for eversion and dorsiflexion bilaterally. Contracted toes are noted, 2, 3, 4 and 5, which are flexible bilaterally. ASSESSMENT: Cellulitis, bilateral lower extremity edema, improving. Idiopathic neuropathy, foot drop, onychomycosis, subungual abscess R1. PLAN: were discussed with the patient today. We discussed generalized foot care for somebody with neuropathy, precautions necessary for her to take. The toenails were debrided today manually mechanically. Betadine applied to each digit. This included the R1, 2, 4, 5 and L1, 2, 3, 5 digits. The granular tissue for the hyponychium of the R1 digit was cauterized with silver nitrate, cleansed, after which Silvadene cream and a light dressing was applied. Betadine and a light dressing over the next 7 days should be appropriate, if not longer should circumstances warrant. We also talked about long-term care for her feet including followup in our office as necessary. She will continue with physical therapy for strength of the lower extremities, especially for dorsiflexion and eversion. She may need to be fitted for ankle, foot orthosis for stability and improve mobility. Job ID: [id number] DocumentID: [id number] Dictated Date: 10/08/2021 12:15:17 Cuffer Date: 10/08/2021 13:36:36 Dictated By: CHERELLE HARVEY DPM
[2021-10-08 15:47] VITALS: BP 122/61
[2021-10-08] MEDS: FUROSEMIDE 20 MG (LASIX) TAB PO SCH (17:06)
[2021-10-08 19:04] VITALS: BP 124/68
[2021-10-08] MEDS: HYDROcodone/APAP 5 MG/325 MG (LORTAB) TAB PO PRN (22:21)
[2021-10-09] VITALS: BP 121/70
[2021-10-09] MEDS: LEVOTHYROXINE 88 MCG (LEVOTHORID) TAB PO SCH (05:42)
[2021-10-09] MEDS: KCL 20 MEQ TAB (K-DUR) PO SCH (05:42)
[2021-10-09] MEDS: FUROSEMIDE 20 MG (LASIX) TAB PO SCH (05:43)
[2021-10-09 05:56] LABS: HEMATOCRIT 29 % (35-52); HEMOGLOBIN 9.1 g/dL (11.5-16.0); MEAN CORPUSCULAR HEMOGLOBIN 31 pg (25-34); MEAN CORPUSCULAR HGB CONC 32 g/dL (32-36); MEAN CORPUSCULAR VOLUME 96 fL (80-99); MEAN PLATELET VOLUME 8.9 fL (9.0-12.2); PLATELET COUNT 367 10^3/uL (130-400)
[2021-10-09 06:08] LABS: POTASSIUM 3.7 MMOL/L (3.6-5.0)
[2021-10-09 06:09] LABS: CALCIUM 7.9 MG/DL (8.5-10.1)
[2021-10-09 06:13] LABS: CREATININE SERUM 0.88 MG/DL (0.60-1.30)
[2021-10-09 06:15] LABS: MAGNESIUM 1.9 MG/DL (1.6-2.4)
--- NOTE | 2021-10-09 07:33 | Progress Note ---
Subjective Subjective Date Seen by Provider: Oct 09, 2021 Time Seen by Provider: 08:30 Lesly Green is an 85y/o F who is being seen for follow up due to cellulitis and lower extremity edema. She states that she is feeling better this morning. Had a fever last night but she was given tylenol and the fever then resolved. Says that her LE edema is improving. Reports that she has been urinating often. Able to drink water and says that her appetite has been good. Review of Systems General: No Chills, No Other (fever) HEENT: No Head Aches, No Visual Changes Pulmonary: No Dyspnea, No Cough Cardiovascular: No: Chest Pain, Palpitations Gastrointestinal: Diarrhea (occasional); No: Abdominal Pain, Constipation Musculoskeletal: leg pain, foot pain Neurological: No: Numbness, Change in speech All Other Systems Reviewed All Other Systems Reviewed: Yes Objective Exam Vital Signs Vital Signs Date Time Temp Pulse Resp B/P (MAP) Pulse Ox O2 Delivery O2 Flow Rate FiO2 10/09/21 00:00 36.8 75 22 121/70 (87) 93 Room Air 10/08/21 20:00 Room Air 10/08/21 19:04 37.6 85 18 124/68 (86) 93 Room Air 10/08/21 15:47 36.9 81 20 122/61 (81) 95 Room Air 10/08/21 11:39 37.8 71 18 113/57 (75) 95 Room Air 10/08/21 08:00 Room Air 10/08/21 07:32 37.2 82 18 130/66 (87) 93 Room Air I & O 10/09/21 07:00 Intake Total 2702.5 ml Output Total 4650 ml Balance -1947.5 ml General Appearance: No Apparent Distress, WD/WN HEENT: PERRL/EOMI; No Photophobia Neck: Normal Inspection, Non Tender, Supple Respiratory: Lungs Clear, Normal Breath Sounds, No Accessory Muscle Use Cardiovascular: Regular Rate, Rhythm, No Murmur, Other (Marked lower extremity edema) Gastrointestinal: Non Tender, Soft Extremity: Swelling, Other (Marked lower extremity edema bilaterally with warm erythema on the lower legs improved from yesterday. 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 Skin: Warm/Dry, Other (Warm erythema of the lower legs with some shallow blistering.) Lymphatic: No Adenopathy Results Lab Laboratory Tests 10/09/21 05:37: White Blood Count 9.0, Red Blood Count 2.98L, Hemoglobin 9.1L, Hematocrit 29L, Mean Corpuscular Volume 96, Mean Corpuscular Hemoglobin 31, Mean Corpuscular Hemoglobin Concent 32, Red Cell Distribution Width 19.9H, Platelet Count 367, Me an Platelet Volume 8.9L, Sodium Level 138, Potassium Level 3.7, Chloride Level 102, Carbon Dioxide Level 27, Anion Gap 9, Blood Urea Nitrogen 14, Creatinine 0.88, Estimat Glomerular Filtration Rate 65, BUN/Creatinine Ratio 16, Glucose Level 106H, Calcium Level 7.9L, Magnesium Level 1.9 Microbiology 10/06/21 Urine Culture - Final, Complete NO GROWTH 10/06/21 Gram Stain - Final, Resulted 10/06/21 Wound Culture - Preliminary, Resulted Corynebacterium striatum Pseudomonas aeruginosa Susceptibility To Follow See Comments Assessment/Plan Assessment/Plan Assessment and Plan Cellulitis Severe lower extremity edema Hypothyroidisim Anemia Hypoalbuminemia Elevated DDimer Generalized weakness Cellulitis - pt on IV antibiotics, ceftriaxone (day 2/6) stopped yesterday, wound culture has returned, started Vancomycin yesterday - WOUND CULTURE RESULT Preliminary Verified 10/07/21- 1624Preliminary RML Source: CYST/ABSCESS / LEG, LEFT Order Location: Emergency Room - [place] Organism 1 Corynebacterium striatum Moderate Growth Organism 2 Pseudomonas aeruginosa Rare TESTING IN PROGRESS Organism 3 SEE COMMENTS . Recent literature reviews indicate Corynebacterium remain susceptible to vancomycin, linezolid, and tigecycline. In addition, most strains tested were susceptible to daptomycin and quinupristin-dalfopristin, as well as to rifampin, tetracycline, gentamicin, and meropenem. -Seen by podiatry yesterday for toe nail care. Severe lower extremity edema - was on iv lasix 40mg, switched to PO lasix 20mg yesterday - continue to monitor BUN/CR. Hypothyroidisim - resume levothyroxine Anemia - monitor cbc, will need to add iron panel to blood in lab, Hypoalbuminemia - increase protein in diet, dietary consult for recommendations for pt pending how she is eating her meals now that she is not neglecting herself for care of her . Elevated DDimer - pt had negative dopplers. Generalized weakness - started PT yesterday - will be transferred down to inpatient rehab unit today DVT prophylaxis- Lovenox GI prophylaxis- Protonix Diet: low sodium DNR Pt will likely need to be admitted to the skilled nursing for a short time due to her weakenss -the pt does not have any family near her and relies on her advent family for care/help. Supervisory-Addendum Brief Verification & Attestation Participated in pt care: history, MDM, physical Personally performed: exam, history, MDM, supervision of care Care discussed with: Medical Student Procedures: n/a Results interpretation: Verified all documentation see my dc summary for details FAWAD WYMAN Oct 09, 2021 07:33 AMBER PAULINO MD Oct 09, 2021 15:09
[2021-10-09] MEDS: PANTOPRAZOLE 40 MG (PROTONIX) TAB PO SCH (07:49)
[2021-10-09] MEDS: HYDROcodone/APAP 5 MG/325 MG (LORTAB) TAB PO PRN (07:49)
[2021-10-09] MEDS: LACTOBACILLUS ACIDOPHILUS (PROBIOTIC) CAPSULE PO SCH (07:49)
[2021-10-09] MEDS: VANCOMYCIN 1250 MG/NS 250 ML IVPB IV SCH ×2 (07:50)
[2021-10-09] MEDS: [UNRECOGNIZED DRUG - OTHER] PO SCH (07:50)
[2021-10-09] MEDS: ENOXAPARIN 40 MG/0.4 ML (LOVENOX) SYR SC SCH (07:50)
[2021-10-09 07:55] VITALS: BP 134/64
[2021-10-09] MEDS ORDERED: VANC1.2526 IV (08:31)
[2021-10-09] MEDS ORDERED: LACT1CAP7 PO (08:31)
--- NOTE | 2021-10-09 08:32 | Discharge Summary ---
Diagnosis/Chief Complaint Date of Admission Oct 06, 2021 at 12:33 Date of Discharge Discharge Date: Oct 09, 2021 Discharge Time: 1000 Admission Diagnosis Admission Diagnosis Cellulitis Severe lower extremity edema Hypothyroidisim Anemia Hypoalbuminemia Elevated DDimer Generalized weakness Discharge Diagnosis Cellulitis Severe lower extremity edema Hypothyroidisim Anemia Hypoalbuminemia Elevated DDimer Generalized weakness Reason Hospital Visit Pt is an 85 y/o female who is known to me from clinic. She has been caregiving for her who last week, and admits to neglecting to care for herself while caring for him. She reports that her legs have been progressively more swollen and more painful to use for ambulation with pt becoming so worried about falling that she finally called EMS for transport to the ER. Discharge Summary Discharge Physical Examination Allergies: Coded Allergies: No Known Drug Allergies (Unverified , 10/06/21) Vitals & I&Os Vital Signs Date Time Temp Pulse Resp B/P (MAP) Pulse Ox O2 Delivery O2 Flow Rate FiO2 10/09/21 08:36 Room Air 10/09/21 07:55 37.0 70 18 134/64 (87) 94 General Appearance: Alert, Oriented X3, Cooperative, No Acute Distress HEENT: Atraumatic, PERRLA, Mucous Memb Moist/[place] Respiratory: Clear to Auscultation, Normal Air Movement Cardiovascular: Regular Rate Abdominal: Normal Bowel Sounds, Soft Extremities: No Clubbing Skin: No Breakdown, Other (wrinkled skin from toes to knees, with erythema of legs from mid bustillo to ankles) Neuro: Normal Speech Psych/Mental Status: Mental Status NL, Mood NL Hospital Course Was the Problem List Reviewed?: Yes Cellulitis Severe lower extremity edema Hypothyroidisim Anemia Hypoalbuminemia Elevated DDimer Generalized weakness Cellulitis - pt on IV antibiotics, ceftriaxone (day 2/6) stopped yesterday, wound culture has returned, started Vancomycin yesterday - WOUND CULTURE RESULT Preliminary Verified 10/07/21- 1624Preliminary RML Source: CYST/ABSCESS / LEG, LEFT Order Location: Emergency Room - [place] Organism 1 Corynebacterium striatum Moderate Growth Organism 2 Pseudomonas aeruginosa Rare TESTING IN PROGRESS Organism 3 SEE COMMENTS . Recent literature reviews indicate Corynebacterium remain susceptible to vancomycin, linezolid, and tigecycline. In addition, most strains tested were susceptible to daptomycin and quinupristin-dalfopristin, as well as to rifampin, tetracycline, gentamicin, and meropenem. -Seen by podiatry yesterday for toe nail care. Severe lower extremity edema - was on iv lasix 40mg, switched to PO lasix 20mg yesterday - continue to monitor BUN/CR. Hypothyroidisim - resume levothyroxine Anemia - monitor cbc, will need to add iron panel to blood in lab, Hypoalbuminemia - increase protein in diet, dietary consult for recommendations for pt pending how she is eating her meals now that she is not neglecting herself for care of her . Elevated DDimer - pt had negative dopplers. Generalized weakness - started PT yesterday - will be transferred down to inpatient rehab unit today DVT prophylaxis- Lovenox GI prophylaxis- Protonix Diet: low sodium DNR Pt admitted to the hospital for her cellulitis, she is too weak to go home, pt was accepted to the IRF unit for strengthening Pending Labs Discharge Instructions to patient/family Please see electronic discharge instructions given to patient. Discharge Medications Reviewed and agree with Discharge Medication list on patient's Discharge Instruction sheet AMBER PAULINO MD Oct 09, 2021 08:32
== END 2021-10-09 09:29 | DRG 603 ==
LOC: EDUNIT# 08:31 → ER 08:36 → 4TH 12:33
PROVIDERS: ADMIT Family Medicine; ATTEND Family Medicine
DX: L03.116 Cellulitis of left lower limb (principal); L03.115 Cellulitis of right lower limb; M21.372 Foot drop, left foot; M21.371 Foot drop, right foot; L03.031 Cellulitis of right toe; B35.1 Tinea unguium; G60.9 Hereditary and idiopathic neuropathy, unspecified; Z66 Do not resuscitate; E88.09 Other disorders of plasma-protein metabolism, not elsewhere classified; D64.9 Anemia, unspecified; E03.9 Hypothyroidism, unspecified; I10 Essential (primary) hypertension; Z86.718 Personal history of other venous thrombosis and embolism
CPT/HCPCS: 36415; 51702; 71045; 80048; 80053; 81000; 83735; 83880; 84439; 84443; 85025; 85027; 85379; 86141; 87070; 87077; 87088; 87186; 87205; 93970

== ENCOUNTER 2021-10-09 09:39 | Inpatient (IN) | payer MEDICARE ==
[~2021-10-09] VITALS: Ht 172.2 cm; Wt 75.5 kg
[~2021-10-09 09:39] MED LIST changes: +ACET-2267 PO; +AMLO-251 PO; +AREDS 2 PO; +CALC-250 PO; +FERR-84 PO; +FURO-125 PO; +LACT1CAP7 PO; +LEVO88CA4 PO; +MULT-878 PO; +POTA-51 PO; +PYRI50TA PO; +SYSTANE; +VANC1.2526 IV
--- NOTE | 2021-10-09 09:53 | PM&R Post Admission Assessment ---
PM&R Date of Visit: Oct 09, 2021 Time of Visit: 13:00 History of Present Illness CC: Debility HPI: This is an 85yoWF clinic patient of Dr Adkins who presents to IRF in need of strengthening due to lower extremity edema with cellulitis and overall declined health status. 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 Patient is very weak and depressed. Vanc initiated by PCP for cellulitis of the lower extremities. Brain cath was requested to remain in for 1 more day. She is incontinent. PLOF was independent w/o use of AD. Past Acohzxc-Hjzorg-Kzvnft Hx Past Med/Social Hx: Reviewed Nursing Past Med/Soc Hx, Reviewed and Corrections made Patient Social History Marrital Status: Employed/Student: retired Alcohol Use: Denies Use Smoking Status: Never a Smoker Past Medical History Surgeries: Orthopedic Currently Using CPAP: No Currently Using BIPAP: No Cardiac: Hypertension Reproductive: No Endocrine: Hypothyroidsim Loss of Vision: Denies Family History Heart Disease, Hypertension PM&R Allergy/Meds/Data Review Allergies Coded Allergies: No Known Drug Allergies (Unverified , 10/06/21) Home Medications Scheduled Cholecalciferol (Vitamin D3) (Vitamin D3), 125 MCG PO DAILY, (Reported) Ferrous Sulfate (Iron), 325 MG PO Q48H, (Reported) Furosemide (Lasix), 20 MG PO DAILY PRN, (Reported) Lactobacillus Acidophilus/Pect (Acidophilus-Pectin Capsule), 2 EACH PO TIDWM Levothyroxine Sodium (Levothyroxine), 88 MCG PO DAILY, (Reported) Multivitamins-Min/FA/Ginkgo (One Daily For Women 50+ Adv Tb), 1 EACH PO DAILY, (Reported) Potassium Chloride (Potassium Chloride), 20 MEQ PO DAILY PRN, (Reported) Pyridoxine HCl (Vitamin B-6), 50 MG PO DAILY, (Reported) Vancomycin HCl in Water (Vancomycin 1,250 mg/12.5 ml Vl), 1.25 GM IV DAILY [Areds 2], 1 CAP PO BID, (Reported) [Systane], 1 DROP BID, (Reported) Scheduled PRN Acetaminophen (Tylenol Extra Strength), 500 MG PO TID PRN for PAIN-MILD (1-4), (Reported) Discontinued Medications Apixaban (Eliquis), 5 MG PO BID Discontinued Reason: No Longer Taking Cefdinir (Cefdinir), 300 MG PO BID Discontinued Reason: No Longer Taking Current Medications Current Medications Reviewed Review of Systems Constitutional: see HPI, dizziness, malaise, weakness EENTM: no symptoms reported Respiratory: no symptoms reported Cardiovascular: edema Gastrointestinal: diarrhea Genitourinary: incontinence Musculoskeletal: back pain, joint pain Skin: see HPI, rash (legs) Psychiatric/Neurological: Anxiety, Depressed, Emotional Problems All Other Systems Reviewed Negative Unless Noted: Yes Physical Exam Physical Exam Vital Signs Capillary Refill : Height, Weight, BMI Height: '" Weight: lbs. oz. kg; 25.04 BMI Method: General Appearance: No Apparent Distress, WD/WN, Chronically ill Eyes: Bilateral Eye Normal Inspection, Bilateral Eye PERRL HEENT: PERRL/EOMI, Normal ENT Inspection, Pharynx Normal Neck: Full Range of Motion, Normal Inspection, Non Tender, Supple, Carotid Bruit Respiratory: Chest Non Tender, Lungs Clear, Normal Breath Sounds, No Accessory Muscle Use, No Respiratory Distress Cardiovascular: Regular Rate, Rhythm, No Gallop, No JVD, No Murmur, Normal Peripheral Pulses Gastrointestinal: Normal Bowel Sounds, No Organomegaly, No Pulsatile Mass, Non Tender, Soft Back: Normal Inspection, No CVA Tenderness, No Vertebral Tenderness Extremity: Normal Capillary Refill, Normal Inspection, Normal Range of Motion, Non Tender, No Calf Tenderness, Pedal Edema, Swelling Neurologic/Psychiatric: Alert, Oriented x3, Normal Mood/Affect, activities officer II-XII Norm as Tested, Abnormal Gait, Depressed Affect, Motor Weakness (generalized) Skin: Normal Color, Warm/Dry, Rash (legs) Lymphatic: No Adenopathy PM&R Medical Assessment & Plan REHAB/MEDICAL ASSESSMENT AND PLAN: REHAB IMPAIRMENT GROUP: [ ] ETIOLOGIC DIAGNOSIS: [ (condition that led to rehab admission) ] The comorbidities that impact the patients function and/or functional outcome by: [ ] REHAB PLAN: The patient is being admitted to our comprehensive inpatient rehabilitation facility and can tolerate the intensity of service consisting of at least: 180 minutes of therapy a day, 5 out of 7 days a week Rehab treatment will consist of: [ (write brief focus that includes physician, rehab nursing and therapies/modalitiesIPOC will have more specifics) ] The patient/family has a good understanding of our discharge process and will benefit from an interdisciplinary inpatient rehabilitation program. The patient has potential to make improvement and is in need of at least two of the following multidisciplinary therapies including but not limited to physical, occupational, speech, and prosthetics and orthotics. Additionally the patient will need services from respiratory, nutritional services, wound care, psychology, etc. (Customize this to each patient). Given the patients complex condition and risk of further medical complications, rehabilitation services c annot be safely or effectively provided at a lower level of care such as a [place] [facility] facility. BARRIERS TO DISCHARGE: [ ] ESTIMATED LOS: [ ] DISPOSITION: [ ] RELEVANT CHANGES SINCE PREADMISSION SCREENING: I have compared the patients medical and functional status at the time of the preadmission screening and there are: [no changes] [changes as follows: (if there is a discrepancy between the IGC/Etiologic stated on the PAS, address/clarify this as well) ] PROGNOSIS: [ ] REHABILITATION GOALS: 1. [ (specific to the patient) ] All the above goals were reviewed with the patient and he/she is in agreement. By signing this document, I acknowledge that I have personally performed a full physical examination on this patient within 24 hours of admission to this inpatient rehabilitation facility and have determined the patient to be able to tolerate the above course of treatment at an intensive level for a reasonable period of time. I will be completing a detailed individualized Plan of Care for this patient by day #4 of the patients stay based upon the Preadmission Screen, the Post-Admission Evaluation, and the therapy evaluations. Admission Dx/Comorbidities: (1) Immobility Status: Acute ICD Codes: Z74.09 - Other reduced mobility (2) Cellulitis Status: Acute ICD Codes: L03.90 - Cellulitis, unspecified (3) Lower extremity edema Status: Acute ICD Codes: R60.0 - Localized edema (4) Hypothyroidism Status: Acute ICD Codes: E03.9 - Hypothyroidism, unspecified Assessment/Plan Assessment and Plan Assess & Plan/Chief Complaint Assessment: Debility Cellulitis lower legs on Vanc Severe lower extremity edema Hypothyroidisim Anemia Hypoalbuminemia Elevated DDimer negative Dopplers Brian cath in place Plan: PT OT protocol Brian cath DC in 2 days Home meds Monitor closely MOLLY MUIR DO Oct 09, 2021 09:53
[2021-10-09] MEDS ORDERED: PATIENT MAY USE OWN MED,SINGLE MED PO SCH (10:00)
[2021-10-09] MEDS ORDERED: MELATONIN 3 MG TABLET PO PRN (10:00)
[2021-10-09] MEDS ORDERED: LACTULOSE SYRUP 10GM/15ML (ENULOSE) 30ML UDC PO PRN (10:00)
[2021-10-09] MEDS ORDERED: guaiFENesin/CODEINE (ROBITUSSIN AC) 10ML UDC PO PRN (10:00)
[2021-10-09] MEDS ORDERED: LOPERAMIDE 2 MG (IMODIUM) TABLET PO PRN (10:00)
[2021-10-09] MEDS ORDERED: ALPRAZolam 0.25 MG (XANAX) TAB PO PRN (10:00)
[2021-10-09] MEDS ORDERED: FLEET ENEMA ADULT 1 EA BTL PR PRN (10:00)
[2021-10-09] MEDS ORDERED: DOCUSATE SODIUM 100 MG (COLACE) CAP PO PRN (10:00)
[2021-10-09] MEDS ORDERED: ACETAMINOPHEN 325 MG TABLET PO PRN (10:00)
[2021-10-09] MEDS ORDERED: ACETAMINOPHEN 500 MG TAB (TYLENOL) PO PRN (10:00)
[2021-10-09] MEDS ORDERED: diphenhydrAMINE 25 MG TAB (BENADRYL) PO PRN (10:00)
[2021-10-09] MEDS ORDERED: BISACODYL 10 MG SUPP (DULCOLAX) PR PRN (10:00)
[2021-10-09] MEDS ORDERED: CALCIUM CARBONATE 500 MG (TUMS) TAB.CHEW PO PRN (10:00)
[2021-10-09] MEDS ORDERED: ONDANSETRON 4 MG (ZOFRAN) ORAL DISSOLVE TAB PO PRN (10:00)
[2021-10-09 10:24] VITALS: BP 106/58
--- NOTE | 2021-10-09 10:25 | Physical Therapy Evaluation ---
PT Evaluation-General Medical Diagnosis Admission Date Oct 09, 2021 at 09:39 Medical Diagnosis: debility/cellulitis bilateral LE Onset Date: Oct 05, 2021 Therapy Diagnosis Therapy Diagnosis: generalized weakness/debility Referral Physician: Radha Reason for Referral: Evaluation/Treatment Medical History Pertinent Medical History: HTN, Hypothroidism Current History transfer to ARU secondary to debility and inability to care for self Reviewed History: Yes Social History Home: Single Level Current Living Status: Alone Entry Into Home: Stairs With Railing PT Steps Into Home: 3 Prior Prior Level of Function SCALE: Activities may be completed with or without assistive devices. 5-Nebmbqwqyr-eityrkj completes the activity by him/herself with no assistance from a helper. 5-Set-up or Clean-up Assistance-helper sets up or cleans up; patient completes activity. [place] assists only prior to or following the activity. 4-Supervision or Touching Assistance-helper provides verbal cues and/or touching/steadying and/or contact guard assistance as patient completes activity. Assistance may be provided throughout the activity or intermittently. 3-Partial/Moderate Assistance-helper does LESS THAN HALF the effort. [place] lifts, holds or supports trunk or limbs, but provides less than half the effort. 2-Substantial/Maximal Assistance-helper does MORE THAN HALF the effort. [place] lifts or holds trunk or limbs and provides more than half the effort. 0-Iwiqenohu-dqpxnk does ALL the effort. Patient does none of the effort to complete the activity. Or, the assistance of 2 or more helpers is required for the patient to complete the activity. If activity was not attempted, code reason: 7-Patient Refused. 9-Not Applicable-not attempted and the patient did not perform the activity before the current illness, exacerbation or injury. 10-Not Attempted due to Environmental Limitations-(lack of equipment, weather restraints, etc.). 88-Not Attempted due to Medical Conditions or Safety Concerns. Bed Mobility: 6 Transfers (B,C,W/C): 6 Gait: 6 Stairs: 6 Wheelchair Mobility: 9 Indoor Mobility (Ambulation): Independent Stairs: Independent Prior Devices Use: Walker (PRN) PT Evaluation-Current Subjective Patient agrees to PT. Objective Patient Orientation: Normal For Age Attachments: Brian Catheter ROM/Strength ROM Lower Extremities bilateral LE WFL Strength Lower Extremities 3/5 grossly bilateral LE all planes (not formally tested due to patient is very tender to palpation bilateral LE due to cellulitis) Integumentary/Posture Integumentary refer to nursing notes Bowel Incontinence: Yes Bladder Incontinence: Brian Cath Posture slightly kyphotic Neuromuscular (Tone, Coordination, Reflexes) grossly intact with all Sensory Vision: Wears Glasses Hearing: Impaired Sensation Right Lower Extremit: Intact Sensation Left Lower Extremity: Intact Transfers Roll Left & Right (QC): 4 Sit to Lying (QC): 3 Lying to Sitting/Side of Bed(Q: 3 Sit to Stand (QC): 3 Chair/Slf-lr-Ekljv Xfer(QC): 3 Toilet Transfer (QC): 3 Car Transfer (QC): 3 Gait Does the Patient Walk?: Yes Mode of Locomotion: Walk Anticipated Mode of Locomotion: Walk Walk 10 feet (QC): 4 Walk 50 ft with 2 Turns(QC): 4 Walk 150 ft (QC): 4 Walking 10ft/uneven surface-QC: 3 Distance: 150' x 5 Gait Assistive Device: FWW Comments/Gait Description very, very slow, steady gait sequence with minimal foot clearance Wheelchair Training Does the Pt Use a Wheelchair?: No Wheel 50 ft with 2 turns (QC): 9 Wheel 150 ft (QC): 9 Type of Wheelchair: N/A Stairs #of Steps: 2 1 Step (curb) (QC): 3 4 Steps (QC): 88 12 Steps (QC): 88 Walking Assistive Device: Walker Balance Sitting Static: Normal Sitting Dynamic: Normal Standing Static: Fair Standing Dynamic: Fair Picking up an Object (QC): 88 Treatment Patient ambulated with FWW CGA to minimal assist 150' x 5 with very slow, steady gait sequence and minimal foot clearance. Assessment/Needs Patient requires time to complete all functional tasks due to weakness and debility. PT to address functional strength and mobility to improve current LOF to safely return to home at maximum LOF. Rehab Potential: Fair PT Real Estate Economist Goals Halfway Goals PT Real Estate Economist Goals Time Frame: Nov 10, 2021 Roll Left & Right (QC): 6 Sit to Lying (QC): 6 Lying-Sitting on Side/Bed(QC): 6 Sit to Stand (QC): 6 Chair/Kkw-xr-Vrybx Xfer(QC): 6 Toilet Transfer (QC): 6 Car Transfer (QC): 6 Does the Patient Walk: Yes Walk 10 feet (QC): 6 Walk 50ft with 2 Turns (QC): 6 Walk 150 ft (QC): 6 Walking 10ft on Uneven Surface: 6 1 Step (curb) (QC): 4 4 Steps (QC): 4 12 Steps (QC): 4 Picking up an Object (QC): 6 Does the Pt use WC or Scooter?: No Wheel 50 feet with 2 turns (QC: 9 Type: N/A Wheel 150 feet: 9 Type: N/A PT Plan Problem List Problem List: Activity Tolerance, Functional Strength, Safety, Balance, Gait, Transfer, Bed Mobility Treatment/Plan Treatment Plan: Continue Plan of Care Treatment Plan: Bed Mobility, Concurrent Therapy, Education, Functional Activity Omari, Functional Strength, Group Therapy, Gait, Safety, Therapeutic Exercise, Transfers Treatment Duration: Nov 10, 2021 Frequency: At least 5 of 7 days/Wk (IRF) Estimated Hrs Per Day: 1.5 hours per day Patient and/or Family Agrees t: Yes Safety Risks/Education Patient Education: Safety Issues Teaching Recipient: Patient Teaching Methods: Discussion Response to Teaching: Verbalize Understanding Time/GCodes Time In: 915 Time Out: 1030 Total Billed Treatment Time: 75 Total Billed Treatment 1 visit EVModC 15 min FA x 4 60 min DEBORAH BURNS PT Oct 09, 2021 10:25
--- NOTE | 2021-10-09 11:11 | Progress Note ---
JONAH GALEANA A MED STUDENT 10/09/21 1111: Progress Note Lesly is an 85 yo female who was admitted for cellulitis of LE on 10/06. Pt was started on ceftriaxone, which was switched to Vancomycin after cultures were obtained. Pt was also started on lasix, which she normally takes as needed for LE swelling. Pt lost her on September 03, which contributed to her debility. She admits she was not taking good care of herself and eventually was unable to walk d/t the state of her legs. Pt had unremarkable hospital course with improvement of her LE cellulitis and edema. She completed some physical therapy on the general medical floor and an inpatient rehab eval was done. She was approved for IRF and is ready to regain her strength so that she can hopefully return home upon d/c. Pt does admit she relies on her jain for help at home as she does not have family nearby. PMHx: HTN, hypothyroidism, hx of DVT not on anticoagulation Meds: see med list for complete list of medications Social hx: Denies ETOH, Tobacco or drug use. for 64 years, recently lost her who was on hospice. 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 Family hx: No significant family hx ROS: negative unless otherwise stated in HPI Physical Exam General: WD/WN elderly female in NAD HEENT: PERRLA, head atraumatic Cardiology: RRR, no murmurs Pulmonology: CTAB, no wheezes, crackles or rhonci GI: Normal bowel sounds, nontender Extremities: Bilateral LE erythema and woody texture with flaking skin, co nsistent with stasis dermatitis Psych: normal mood/affect Assessment and Plan: Debility secondary to cellulitis and possible stasis dermatitis -Continue vancomycin, await sensitivities -Continue lasix 20mg -Continue lovenox -Consider wrapping legs with JEAN-PAUL bandages and applying barrier cream -PT/OT/Speech therapy -Lortab 5mg q4 prn pain Hypothyroidism -Continue home med-levothyroxine Hypokalemia -Currently 3.7 on 20meq of KCl daily Diet: Regular DVT prophylaxis: Ambulation and lovenox JANICE MUIR DO 10/10/21 0609: Supervisory-Addendum Brief Verification & Attestation Participated in pt care: history, MDM, physical Personally performed: exam, history, MDM, supervision of care Care discussed with: Medical Student Procedures: n/a Results interpretation: Verified all documentation Verification and Attestation of Medical Student E/M Service A medical student performed and documented this service in my presence. I reviewed and verified all information documented by the medical student and made modifications to such information, when appropriate. I personally performed the physical exam and medical decision making. Janice Muir, Oct 10, 2021,06:09 JONAH GALEANA MED STUDENT Oct 09, 2021 11:11 JANICE MUIR DO Oct 10, 2021 06:09
--- NOTE | 2021-10-09 11:39 | ST Cognitive Linguistic Eval ---
Speech Evaluation-General Medical Diagnosis Debility/Cellulitis Bilateral LE Onset Date: Oct 05, 2021 Therapy Diagnosis Therapy Diagnosis: Intact Cognitive Linguistic Skills Precautions Precautions: Fall, Pressure Ulcer Precautions/Isolations: Fall Prevention, Standard Precautions, Pressure Ulcer Referral Referring Physician: Dr. Janice Garcia Reason for Referral: Evaluation/Treatment Medical History Pertinent Medical History: HTN, Hypothroidism Current History The patient is an 85 year-old female with a past medical history of HTN and hypothroidism, who presented to ARU secondary to debility. Reviewed History: Yes Social History Current Living Status: Alone Speech PLF-Current Status Prior Level of Function The patient denied any current or recent concerns regarding her speech, language, cognition, or swallowing. Subjective The patient was seated upright in her chair, awake and alert upon entrance to her room by the clinician. The patient greeted the clinician appropriately and was agreeable to participation in the cognitive linguistic assessment. Language Eval: Auditory Comprehends Simple Yes/No Ques: Functional Indent/Objects Multiple Avitia: Functional Ident/Pics in Multiple Avitia: Functional Follows 1-Step Commands: Functional Follows Complex Directions: Functional Follows General Conversations: Functional Language Eval: Verbal Language Completes Spontaneous Greeting: Functional Produces Auto, Serial Info: Functional Imitates Simple Words/Phrases: Functional Word Finding: Functional Requests Basic Needs: Functional States Basic Personal Info: Functional Expresses Complex Ideas: Functional Language Evaluation: Reading Follows Simple Written Direct: Functional Language Evaluation: Writing Writes to Simple Dictation: Functional Cognitive Patient Orientation The patient was independently oriented to self, location, month, day of the week, date, and year. Objective Cognitive Domain Attention: WNL Memory: WNL Problem Solving: Functional Executive Functions: WNL Visuospatial Skills: WNL Composite Severity Rating: WNL Clock Drawing Severity Rating: WNL Objective Formal/Standardized Tests [facility] Mental Status Examination (UMS) Results The patient demonstrated a result of +29/30 on the SLUMS correlating to cognitive linguistic skills within normal limits. Oral Motor/Speech Production The patient does not display dysarthria or apraxia of speech. The patient remains 100% intelligible in known and unknown contexts. Impression The patient demonstrated cognitive linguistic skills within normal limits. Speech Patient Assess Expression of Ideas/Wants: Expression (4) Understanding Verbal Content: Understands (4) Brief Interview-Mental Status: Yes Repetition of Three Words: Three (3) Temporal Orientation: Year: Correct (3) Temporal Orientation: Month: Accurate within 5 days(2) Temporal Orientation: Day: Correct (1) Recall : Wear to say "Sock": Yes, no cue required (2) Recall : Color: Yes, no cue required (2) Recall : Bed: Yes, no cue required (2) Memory/Recall Ability: Current season, That he or she is in a hsp/hsp unit Speech-Plan Treatment Plan Speech Therapy Treatment Plan: Discontinue ST Treatment Duration: Oct 09, 2021 Frequency: 1 time per week Estimated Hrs Per Day: .5 hour per day Rehab Potential: Good Safety Risks/Education Teaching Recipient: Patient Teaching Methods: Discussion Response to Teaching: Verbalize Understanding Education Topics Provided: Results of UMER POC Time Speech Therapy Time In: 10:30 Speech Therapy Time Out: 11:00 Total Billed Time: 30 Billed Treatment Time 1, NORMA PINA ELIZ[facility] ST Oct 09, 2021 11:39
[2021-10-09] MEDS: LACTOBACILLUS ACIDOPHILUS (PROBIOTIC) CAPSULE PO SCH ×2 (12:19→17:10)
--- NOTE | 2021-10-09 12:58 | Occupational Therapy Eval ---
OT Evaluation-General/PLF Medical Diagnosis Admission Date Oct 09, 2021 at 09:39 Medical Diagnosis: debility/cellulitis bilateral LE Onset Date: Oct 05, 2021 Therapy Diagnosis Therapy Diagnosis: decreased ADL status and weakness Precautions Precautions/Isolations: Fall Prevention, Standard Precautions, Pressure Ulcer Referral Physician: Radha Saldivar Reason: Evaluation/Treatment Medical History Pertinent Medical History: HTN, Hypothroidism Additional Medical History HTN and hypothyroidism Current History Admitted for BLE swelling and pain Social History Home: Single Level Current Living Status: Alone Entry Into Home: Stairs With Railing Steps Into Home: 3 ADL-Prior Level of Function SCALE: Activities may be completed with or without assistive devices. 8-Dggricuico-aelxmki completes the activity by him/herself with no assistance from a helper. 5-Set-up or Clean-up Assistance-helper sets up or cleans up; patient completes activity. [place] assists only prior to or following the activity. 4-Supervision or Touching Assistance-helper provides verbal cues and/or touching/steadying and/or contact guard assistance as patient completes activity. Assistance may be provided throughout the activity or intermittently. 3-Partial/Moderate Assistance-helper does LESS THAN HALF the effort. [place] lifts, holds or supports trunk or limbs, but provides less than half the effort. 2-Substantial/Maximal Assistance-helper does MORE THAN HALF the effort. [place] lifts or holds trunk or limbs and provides more than half the effort. 1-Kkseygiuj-qiybzt does ALL the effort. Patient does none of the effort to compl ete the activity. Or, the assistance of 2 or more helpers is required for the patient to complete the activity. If activity was not attempted, code reason: 7-Patient Refused. 9-Not Applicable-not attempted and the patient did not perform the activity before the current illness, exacerbation or injury. 10-Not Attempted due to Environmental Limitations-(lack of equipment, weather restraints, etc.). 88-Not Attempted due to Medical Conditions or Safety Concerns. ADL PLOF Comments Pt reports increasing difficulty with ADLs prior to admission. She does not wear footwear within her home and has difficulty threading BLE through underwear and pants d/t BLE pain and swelling. She tasks sponge baths because she is afraid to trip over the lip into her shower. She also has a tub/shower and Jacuzzi, but she does not think she could get into/out of it. She has a FWW and QC, but she has been using the FWW over the QC d/t recent hip pain. 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 Mental Status/Objective Patient Orientation: Person, Place, Situation Attachments: Brian Catheter Current Glasses/Contacts: Yes Hearing Aids: No Dentures/Partials: Yes Hand Dominance: Right Upper Extremity ROM BUE are WFL, no concerns noted Upper Extremity Sensation Pt reports occasional tingling in both hands Upper Extremity Strength RUE: 4+/5; LUE 3+/5 ADL-Treatment Eating (QC): 6 (Per pt report) Oral Hygiene (QC): 4 (SBA standing balance at sink) Shower/Bathe Self (QC): 3 (Min A for balance when cleaning buttocks/periarea) Upper Body Dressing (QC): 5 Lower Body Dressing (QC): 3 (Mod A to thread BLE through brief and pants, min A for standing balance to hike pants) On/Off Footwear (QC): 2 (Max A per clinical judgement) Toileting Hygiene (QC): 3 (Min A for standing balance per clinical judgement) Other Treatments [id number]: Pt sat in recliner and provided information about PLOF and living situation and participated in BUE screen. She completed a sponge bath and d ressing while seated in recliner, and then she walked to bathroom with FWW, CGA, to complete oral care/grooming tasks standing at sink. While walking back to recliner, pt required v/c's for direction with FWW as she attempted to turn around early and continue the rest of the distance to recliner while backing up. Pt verbalized understanding of FWW safety during transfers. Post tx, pt left in recliner with call light in reach and all needs met. [id number]: Pt remained in recliner for remainder of tx. She declined all ADLs at this time, but was agreeable to participate in functional activities and BUE exercises to increase strength and tolerance needed for ADLs and functional transfers. She completed the nuts and bolts board with 1lb wrist weights, and then she completed 10 reps of both bicep curls and overhead extensions with a 2lb-weight dowel sam. Pt tolerated activities well with no c/o pain or discomfort. Post tx, pt left in recliner with call light in reach and all needs met. Education OT Patient Education: Correct positioning, Energy conservation, Modified ADL techniques, Progress toward Goal/Update tx plan, Purpose of tx/functional activities, Rehab process, Safety issues, Transfer techniques Teaching Recipient: Patient Teaching Methods: Discussion Response to Teaching: Verbalize Understanding OT Short Term Goals Short Term Goals Time Frame: Oct 17, 2021 Toileting hygiene: 4 Shower/bathe self: 4 Lower body dressin OT Group Home Goals Group Home Goals Time Frame: Oct 26, 2021 Eating (QC): 6 Oral Hygiene (QC): 6 Toileting Hygiene (QC): 6 Shower/Bathe Self (QC): 6 Upper Body Dressing (QC): 6 Lower Body Dressing (QC): 6 On/Off Footwear (QC): 6 Additional Goals: 1-Demonstrate ADL Tasks, 2-Verbalize Understanding, 3- ImproveStrength/Omari 1=Demonstrate adherence to instructed precautions during ADL tasks. 2=Patient will verbalize/demonstrate understanding of assistive devices/modifications for ADL. 3=Patient will improve strength/tolerance for activity to enable patient to perform ADL's. OT Education/Plan Problem List/Assessment Assessment: Decreased Activ Tolerance, Decreased UE Strength, Impaired Funct Balance, Impaired I ADL's, Impaired Self-Care Skills Discharge Recommendations Plan/Recommendations: Continue POC Treatment Plan/Plan of Care Patient would benefit from OT for education, treatment and training to promote independence in ADL's, mobility, safety and/or upper extremity function for ADL's. Plan of Care: ADL Retraining, Functional Mobility, Group Exercise/Act as Ind, UE Funct Exercise/Act Treatment Duration: Oct 26, 2021 Frequency: At least 5 of 7 days/Wk (IRF) Estimated Hrs Per Day: 1.5 hours per day Rehab Potential: Good Time/GCodes Start Time: 11:15 ([id number]) Stop Time: 14:00 ([id number]) Total Time Billed (hr/min): 75 Billed Treatment Time 7615-1338: 1, EVL (10'), ADL 2 (35') [id number]: 1, FA (20'), Ex (10') JEWELS MCCORMICK OT Oct 09, 2021 12:58
[2021-10-09] MEDS: FUROSEMIDE 20 MG (LASIX) TAB PO SCH (17:10)
[2021-10-09 19:28] VITALS: BP 140/63
[2021-10-09] MEDS: SENNA W/DOCUSATE (SENOKOT S) TABLET PO SCH (20:41)
[2021-10-09] MEDS: polyethylene glycoL POWDER 17 GM (MIRALAX) PACK PO SCH (20:41)
[2021-10-09] MEDS: DOCUSATE SODIUM 100 MG (COLACE) CAP PO SCH (20:41)
[2021-10-10] MEDS: HYDROcodone/APAP 5 MG/325 MG (LORTAB) TAB PO PRN ×2 (01:58→21:32)
[2021-10-10] MEDS: KCL 20 MEQ TAB (K-DUR) PO SCH (06:17)
[2021-10-10] MEDS: FUROSEMIDE 20 MG (LASIX) TAB PO SCH ×2 (06:17→17:46)
[2021-10-10] MEDS: LEVOTHYROXINE 88 MCG (LEVOTHORID) TAB PO SCH (06:17)
--- NOTE | 2021-10-10 06:30 | PM&R Progress Note ---
Subjective HPI/CC On Admission Date Seen by Provider: Oct 10, 2021 Time Seen by Provider: 09:00 Subjective/Events-last exam 10/10/2021: Doing well Improved strength already Patient appears to be very debilitated and self neglected Vanc still maintained Brian cath in place for another few days due to incontinence Review of Systems General: Fatigue, Malaise Objective Exam Vital Signs Vital Signs Date Time Temp Pulse Resp B/P (MAP) Pulse Ox O2 Delivery O2 Flow Rate FiO2 10/10/21 21:40 Room Air 10/10/21 19:27 37.0 86 22 118/56 (76) 94 Capillary Refill : General Appearance: No Apparent Distress, WD/WN, Chronically ill HEENT: PERRL/EOMI, Normal ENT Inspection, Pharynx Normal Neck: Full Range of Motion, Normal Inspection, Non Tender, Supple, Carotid Bruit Respiratory: Chest Non Tender, Lungs Clear, Normal Breath Sounds, No Accessory Muscle Use, No Respiratory Distress Cardiovascular: Regular Rate, Rhythm, No Gallop, No JVD, No Murmur, Normal Peripheral Pulses Gastrointestinal: Normal Bowel Sounds, No Organomegaly, No Pulsatile Mass, Non Tender, Soft Back: Normal Inspection, No CVA Tenderness, No Vertebral Tenderness Extremity: Normal Capillary Refill, Normal Inspection, Normal Range of Motion, Non Tender, No Calf Tenderness, Pedal Edema, Swelling Neurologic/Psychiatric: Alert, Oriented x3, Normal Mood/Affect, siphoner II-XII Norm as Tested, Abnormal Gait, Depressed Affect, Motor Weakness (generalized) Skin: Normal Color, Warm/Dry, Rash (legs) Lymphatic: No Adenopathy Results/Procedures Lab Laboratory Tests 10/10/21 09:18 Patient resulted labs reviewed. FIM Transfers Therapy Code Descriptions/Definitions Functional Walker Measure: 0=Not Assessed/NA 4=Minimal Assistance 1=Total Assistance 5=Supervision or Setup 2=Maximal Assistance 6=Modified Walker 3=Moderate Assistance 7=Complete IndependenceSCALE: Activities may be completed with or without assistive devices. 7-Tljgjoarcv-vdfjtuz completes the activity by him/herself with no assistance from a helper. 5-Set-up or Clean-up Assistance-helper sets up or cleans up; patient completes activity. [place] assists only prior to or following the activity. 4-Supervision or Touching Assistance-helper provides verbal cues and/or touching/steadying and/or contact guard assistance as patient completes activity. Assistance may be provided throughout the activity or intermittently. 3-Partial/Moderate Assistance-helper does LESS THAN HALF the effort. [place] lifts, holds or supports trunk or limbs, but provides less than half the effort. 2-Substantial/Maximal Assistance-helper does MORE THAN HALF the effort. [place] lifts or holds trunk or limbs and provides more than half the effort. 4-Ogjzfgiye-hizlem does ALL the effort. Patient does none of the effort to complete the activity. Or, the assistance of 2 or more helpers is required for the patient to complete the activity. If activity was not attempted, code reason: 7-Patient Refused. 9-Not Applicable-not attempted and the patient did not perform the activity before the current illness, exacerbation or injury. 10-Not Attempted due to Environmental Limitations-(lack of equipment, weather restraints, etc.). 88-Not Attempted due to Medical Conditions or Safety Concerns. Roll Left to Right (QC): 4 Sit to Lying (QC): 3 Sit to Stand (QC): 3 Chair/Ofc-st-Zdygw Xfer(QC): 3 Car Transfer (QC): 3 Gait Training Does the Patient Walk?: Yes Walk 10 feet (QC): 4 Walk 50 ft with 2 Turns(QC): 4 Walk 150 ft (QC): 4 Walking 10ft/uneven surface-QC: 3 Gait Assistive Device: FWW Wheelchair Training Does the Pt Use a Wheelchair?: No Wheel 50 ft with 2 turns (QC): 9 Wheel 150 ft (QC): 9 Type of Wheelchair: N/A Stair Training #of Steps: 2 1 Step (curb) (QC): 3 4 Steps (QC): 88 12 Steps (QC): 88 Balance Picking up an Object (QC): 88 ADL-Treatment Eating (QC): 6 (Per pt report) Oral Hygiene (QC): 4 (SBA standing balance at sink) Shower/Bathe Self (QC): 3 (Min A for balance when cleaning buttocks/periarea) Upper Body Dressing (QC): 5 Lower Body Dressing (QC): 3 (Mod A to thread BLE through brief and pants, min A for standing balance to hike pants) On/Off Footwear (QC): 2 (Max A per clinical judgement) Toileting Hygiene (QC): 3 (Min A for standing balance per clinical judgement) Assessment/Plan Assessment and Plan Assess & Plan/Chief Complaint Assessment: Debility Cellulitis lower legs on Vanc Severe lower extremity edema Hypothyroidisim Anemia Hypoalbuminemia Elevated DDimer negative Dopplers Brian cath in place Plan: PT OT protocol Brian cath DC in 2 days Home meds Monitor closely 10/10/2021: Vanc PT OT (1) Immobility Status: Acute (2) Cellulitis Status: Acute (3) Lower extremity edema Status: Acute (4) Hypothyroidism Status: Acute MOLLY MUIR DO Oct 10, 2021 06:30
--- NOTE | 2021-10-10 06:31 | Individualized Plan of Care ---
Individualized Plan of Care Rehab Nursing IPOC Order Admission Date Oct 09, 2021 at 09:39 Current Orders Orders Admission Arrival Bed Request (10/09/21 09:39) Admission Order(Inpt,Obs,Sdc) (10/09/21 09:49) Vital Signs: Per Unit Policy ( ,16,00 (10/09/21 09:49) Kike Buck (10/09/21 09:49) Sequential Compression Device (10/09/21 09:49) Pinsetter Mechanic Automatic-Inpt Rehab Con (10/09/21 09:49) Rehab Nursing Orders-Ipoc (10/09/21 09:49) Physical Therapy Rehab Orders (10/09/21 09:49) Occupational Therapy Rehab Ord (10/09/21 09:49) Speech Therapy Rehab Orders (10/09/21 09:49) Cbc With Automated Diff (10/10/21 06:00) Comprehensive Metabolic Panel (10/10/21 06:00) Precautions (Aru) (10/09/21 09:49) Weekly Weight WEEK (10/09/21 09:49) Rehab-Intensity Of Therapy (10/09/21 09:49) Initiate Admission Nursing Pro .admission (10/09/21 09:49) Alprazolam Tablet (Xanax Tablet) (10/09/21 10:00) Calcium Carbonate Chew Tablet (Antacid C (10/09/21 10:00) Diphenhydramine Tablet (Benadryl Tablet) (10/09/21 10:00) Docusate Sodium Capsule (Colace Capsule) (10/09/21 21:00) Docusate Sodium Capsule (Colace Capsule) (10/09/21 10:00) Bisacodyl Suppository (Dulcolax Supposit (10/09/21 10:00) Lactulose Oral Solution (Enulose Oral So (10/09/21 10:00) Na Phos/Na Biphos Enema (Fleet Enema Jude (10/09/21 10:00) Guaifenesin/Codeine Syrup (Robitussin Ac (10/09/21 10:00) Loperamide Tablet (Imodium Tablet) (10/09/21 10:00) Melatonin Tablet (Melatonin Tablet) (10/09/21 10:00) Polyethylene Glycol Powder Pkt (Miralax (10/09/21 21:00) Ondansetron Oral Dissolve Tab (Zofran (10/09/21 10:00) Senna S Tablet (Senokot S Tablet) (10/09/21 21:00) Acetaminophen Tablet/Caplet (Tylenol T (10/09/21 10:00) Code/Resuscitation (10/09/21 09:49) Code/Resuscitation (10/09/21 09:51) Sodium 2g (2000 Mg) (10/09/21 Lunch) (Nf) Areds 2 (10/09/21 21:00) (Nf) Systane (10/09/21 21:00) Acetaminophen Tablet (Tylenol Tablet) (10/09/21 10:00) Furosemide Tablet (Lasix Tablet) (10/09/21 17:00) Hydrocodone/Apap 5/325 Tablet (Lortab 5 (10/09/21 10:00) Lactobacillus Acidophilus Cap (Acidophil (10/09/21 13:00) Levothyroxine Tablet (Synthroid Tablet) (10/10/21 06:30) Enoxaparin Injection (Lovenox Injection) (10/10/21 09:00) Pantoprazole Tablet (Protonix Tablet) (10/10/21 09:00) Patient May Use Own Med,Single (Patient (10/09/21 10:00) Potassium Chloride (Tablet) (K Dur Table (10/10/21 07:00) Vancomycin Injection (Vancomycin Injecti (10/10/21 09:00) Consult Podiatry (10/09/21 09:51) Dietary Consult (10/09/21 09:51) Heel Protectors Bilateral (10/09/21 09:51) Trough Order (Trough Order-Pharmacy Orde (10/10/21 08:00) Vancomycin,Trough (10/10/21 08:00) Ensure Plus Vanilla (10/09/21 11:20) Patient Visit (10/09/21 ) Pt Eval Moderate Complexity (10/09/21 ) Functional Activities, Ea 15 (10/09/21 ) Patient Visit (10/09/21 ) Speech Sound Lang Comp (10/09/21 ) Treat. Speech/Lang/Voice (10/09/21 ) Patient Visit (10/10/21 ) Exercise Therap, Ea 15 Min (10/10/21 ) Gait Training, Ea 15 Min (10/10/21 ) Functional Activities, Ea 15 (10/10/21 ) Loperamide Tablet (Imodium Tablet) (10/11/21 09:00) Rehab Nursing Orders: Ongoing Assess. of Cognitive Status, Ongoing Assess. of Function Status, Bladder Management, Bladder Scan, Bladder Training, Bowel Management, Bowel Training, Disease Management & Educaiton, DVT Prophylaxis, Fall Prevention, Fluid/Electrolyte/Nutrition Mgmt, Infection Prevention, Medication Management & Education, Management of Risks & Complications, Ma nagement of Skin Intergrity, Nutrition Management, Pain Management, Patient/Family Support, Safety Management, Wound Management Intensity of Therapy to be met Patient to be seen: Min.3h per day/5 of 7d PT IPOC Problem List: Activity Tolerance, Functional Strength, Safety, Balance, Gait, Transfer, Bed Mobility Treatment Plan: Continue Plan of Care Bed Mobility, Concurrent Therapy, Education, Functional Activity Omari, F unctional Strength, Group Therapy, Gait, Safety, Therapeutic Exercise, Transfers Treatment Duration: Nov 10, 2021 Frequency: At least 5 of 7 days/Wk (IRF) Estimated Hrs Per Day: 1.5 hours per day OT IPOC Problems: Decreased Activ Tolerance, Decreased UE Strength, Impaired Funct Balance, Impaired I ADL's, Impaired Self-Care Skills OT Treatment, Training and Edu: Yes Plan of Care: ADL Retraining, Functional Mobility, Group Exercise/Act as Ind, UE Funct Exercise/Act Treatment Duration: Oct 26, 2021 Frequency: At least 5 of 7 days/Wk (IRF) Estimated Hrs Per Day: 1.[address] IPOC Speech Therapy Treatment Plan: Discontinue ST Treatment Duration: Oct 09, 2021 Frequency: 1 time per week Estimated Hrs Per Day: .5 hour per day Pinsetter Mechanic Automatic/Case Mgmt Pinsetter Mechanic Automatic/Case Managemen: Discharge Planning Dietitian/Psychological Operations Dietitian/Psychological Operations to monitor nutritional status and make changes and/or recommendations as needed and work with speech pathology on dietary upgrades as the occur. Physician IPOC Medical Issues being managed closely and that require the 24 hour availability of a physician: Recent falls and severe debility following the of her on hospice for 18 months with severe debility from self neglect will require close monitori ng for cellulitis of the legs and weakness at high risk for decompensation. Medical Issues: Bowel/Bladder Function, DVT Prophylaxis, Falls Precautions, Fluid/Electrolyte/Nutrition Balance, Infection Protection, Pain Management, Wound Care Brief Synthesis of Preadmission Screen, Post-Admission Evaluation, and Therapy Evaluations: PT OT will focus on regaining function with use of assistive devices in order to regain ambulatory function in order to regain independence to go home Medical Prognosis: Fair Anticipated Length of Stay: 10 days MOLLY MUIR DO Oct 10, 2021 06:31
[2021-10-10 07:42] VITALS: BP 135/65
--- NOTE | 2021-10-10 07:53 | Consultation ---
FAWAD WYMAN 10/10/21 0753: HPI History of Present Illness: HPI/Chief Complaint Pt is an 85 y/o female who is known to me from clinic. She had been caregiving for her who last week, and admits to neglecting to care for herself while caring for him. She reported that her legs had been progressively more swollen and more painful to use for ambulation with pt becoming so worried about falling that she finally called EMS for transport to the ER. While on Med/surg floor she was treated w/ IV Lasix for LE edema and started on vancomycin and cefepime for cellulitis of her LEs. The edema began to improved w/ Lasix treatment and she was receiving both antibiotics daily. Transferred down to inpt rehab yesterday due to deconditioning related to the edema and cellulitis. She was awake and alert when I entered the room. Today she reports that she is sore from the PT and OT that she had yesterday. States that she needed to use some pain medication last night due to the soreness. Says that her leg swelling is about the same today as it was yesterday. Endorses her appetite being good. Source: patient Exam Limitations: no limitations Date Seen 10/10/21 Attending Physician Amber Adkins MD PCP Admitting Physician: Janice Garcia DO Attending Physician: Janice Garcia DO Referring Physician Date of Admission Oct 09, 2021 at 09:39 Home Medications & Allergies Home Medications Reviewed patient Home Medication Reconciliation performed by pharmacy medication reconciliations heat transfer technician and/or nursing. Patients Allergies have been reviewed. Allergies Allergies Coded Allergies No Known Drug Allergies (Unverified10/06/21) Past Htmqivh-Lixvfe-Offnqh Hx Patient Social History Marrital Status: Employed/Student: retired Smoking Status: Never a Smoker Substance use?: No Alcohol Use?: No Pt feels they are or have been: No Immunizations Up To Date First/Initial COVID19 Vaccinat: 2020 Second COVID19 Vaccination Neto: 2020 Tetanus Booster (TDap): Unknown Current Status Advance Directives: No Communicates: Verbally Primary Language: [place] Preferred Spoken Language: [place] Is interpretation needed?: No Sensory deficits: Vision impairment Past Medical History Surgeries: Orthopedic Currently Using CPAP: No Currently Using BIPAP: No Hypertension Hypothyroidsim Loss of Vision: Denies Family Medical History Heart Disease, Hypertension Review of Systems Constitutional: No chills, No fever EENTM: No blurred vision, No double vision Respiratory: No cough, No dyspnea on exertion Cardiovascular: No chest pain, No palpitations Gastrointestinal: No abdominal pain; diarrhea; No nausea, No vomiting Genitourinary: No dysuria, No hematuria Musculoskeletal: No back pain; muscle pain (in legs) Skin: rash (erythema on b/l LEs) Psychiatric/Neurological: Denies Headache, Denies Numbness, Denies Paresthesia Physical Exam Physical Exam Vital Signs Vital Signs - First Documented 10/09/21 10:24 Temp 35.5 Pulse 82 Resp 20 B/P (MAP) 106/58 (74) Pulse Ox 93 O2 Delivery Room Air Capillary Refill : Height, Weight, BMI Height: '" Weight: lbs. oz. kg; 24.95 BMI Method: General Appearance: No Apparent Distress, WD/WN Eyes: Bilateral Eye Normal Inspection, Bilateral Eye PERRL HEENT: PERRL/EOMI; No Photophobia Neck: Non Tender, Supple Respiratory: Chest Non Tender, Lungs Clear, Normal Breath Sounds, No Accessory Muscle Use, No Respiratory Distress Cardiovascular: Regular Rate, Rhythm, No Gallop, No JVD, No Murmur, Normal Peripheral Pulses Gastrointestinal: No Pulsatile Mass, Non Tender, Soft Extremity: Non Tender, No Calf Tenderness, Pedal Edema, Swelling (LEs) Neurologic/Psychiatric: Alert, Oriented x3, Normal Mood/Affect Skin: Normal Color, Warm/Dry, Rash (b/l LE erythema up to proximal bustillo) Lymphatic: No Adenopathy Results Results/Procedures Labs Patient resulted labs reviewed. Assessment/Plan Assessment and Plan Assess & Plan/Chief Complaint Cellulitis Severe lower extremity edema Hypothyroidisim Anemia Hypoalbuminemia Elevated DDimer Generalized weakness Cellulitis - pt on IV antibiotics, ceftriaxone (day 2/6) stopped 10/08, wound culture has returned, started Vancomycin on 10/08 (day 3/8) - WOUND CULTURE RESULT Preliminary Verified 10/07/21- 1624Preliminary RML Source: CYST/ABSCESS / LEG, LEFT Order Location: Emergency Room - [place] Organism 1 Corynebacterium striatum Moderate Growth Organism 2 Pseudomonas aeruginosa Rare TESTING IN PROGRESS Organism 3 SEE COMMENTS . Recent literature reviews indicate Corynebacterium remain susceptible to vancomycin, linezolid, and tigecycline. In addition, most strains tested were susceptible to daptomycin and quinupristin-dalfopristin, as well as to rifampin, tetracycline, gentamicin, and meropenem. -seen by podiatry on 10/08 for toe nail care. -continue to monitor Severe lower extremity edema (improving - was on iv lasix 40mg, switched to PO lasix 20mg on 10/08 - continue to monitor BUN/CR. Generalized weakness - started PT on 10/08 - transferred down to inpatient rehab unit yesterday, currently doing PT/OT/speech Hypothyroidisim - resume levothyroxine Anemia - monitor cbc, will need to add iron panel to blood in lab, Hypoalbuminemia - increase protein in diet, dietary consult for recommendations for pt pending how she is eating her meals now that she is not neglecting herself for care of her . Elevated DDimer - pt had negative dopplers. DVT prophylaxis- Lovenox GI prophylaxis- Protonix Diet: low sodium DNR AMBER ADKINS MD 10/10/21 1831: HPI History of Present Illness: HPI/Chief Complaint Pt is an 85 y/o female who was admitted to the hospital with severe edema and cellulitis - she was admitted for treatment of the infection, and was found to be profoundly weak with need for IRF Source: patient Exam Limitations: no limitations Attending Physician AMBER ADKINS MD PCP AMBER ADKINS MD Referring Physician AMBER ADKINS MD Date of Admission 10/10/21 Home Medications & Allergies Home Medications MEDS REVIEWED Past Kbayqlv-Eiyrib-Knztrm Hx Patient Social History Marrital Status: Living Status: LIVES AT HOME ALONE, RECENTLY Employed/Student: retired Smoking Status: Never a Smoker Smokeless Tobacco Frequency: Never a User Use of E-Cig and/or Vaping dev: No Use of E-Cig and/or Vaping Wagner: Never a User Substance use?: No Alcohol Use?: No Seasonal Allergies Seasonal Allergies: No Current Status status: No Communicates: Verbally Primary Language: [place] Preferred Spoken Language: [place] Is interpretation needed?: No Sensory deficits: Vision impairment Past Medical History Surgeries: Orthopedic Currently Using CPAP: No Currently Using BIPAP: No Hypertension Sexually Transmitted Disease: No HIV/AIDS: No Hypothyroidsim Loss of Vision: Denies Hearing Impairment: Denies Did You Recieve Any Treatments: No Blood Disorders: No Adverse Reaction/Blood Tranf: No Family Medical History Reviewed Nursing Family Hx Heart Disease, Hypertension Review of Systems Constitutional: No chills, No fever EENTM: No blurred vision, No double vision Respiratory: No cough, No dyspnea on exertion Cardiovascular: No chest pain, No palpitations Gastrointestinal: No abdominal pain; diarrhea; No nausea, No vomiting Genitourinary: No dysuria, No hematuria Musculoskeletal: No back pain; muscle pain (in legs) Skin: rash (erythema on b/l LEs) Psychiatric/Neurological: Denies Headache, Denies Numbness, Denies Paresthesia All Other Systems Reviewed Negative Unless Noted: Yes Physical Exam Physical Exam General Appearance: No Apparent Distress, WD/WN HEENT: PERRL/EOMI, Pharynx Normal Neck: Full Range of Motion, Normal Inspection, Non Tender, Supple Respiratory: Chest Non Tender, Lungs Clear, Normal Breath Sounds, No Accessory Muscle Use, No Respiratory Distress Cardiovascular: Regular Rate, Rhythm, No Murmur, Normal Peripheral Pulses Gastrointestinal: Normal Bowel Sounds, No Pulsatile Mass, Non Tender, Soft Rectal: Deferred Extremity: Non Tender, No Calf Tenderness, Pedal Edema, Swelling (LEs) Neurologic/Psychiatric: Alert, Oriented x3, No Motor/Sensory Deficits, Normal Mood/Affect Skin: Normal Color, Warm/Dry, Rash (b/l LE erythema up to proximal bustillo) Lymphatic: No Adenopathy Assessment/Plan Assessment and Plan Assess & Plan/Chief Complaint Cellulitis Severe lower extremity edema Hypothyroidisim Anemia Hypoalbuminemia Elevated DDimer Generalized weakness AGREE WITH STUDENT DOCUMENTATION - PT ON VANCOMYCIN - WAITING ON SENSITIVITY REPORT Supervisory-Addendum Brief Verification & Attestation Participated in pt care: history, MDM, physical Personally performed: exam, history, MDM, supervision of care Care discussed with: Medical Student Procedures: n/a Results interpretation: Verified all documentation Agree with student note as documented. Cellulitis Severe lower extremity edema Hypothyroidisim Anemia Hypoalbuminemia Elevated DDimer Generalized weakness Cellulitis - pt on IV antibiotics, Organism 1 Corynebacterium striatum Moderate Growth Organism 2 Pseudomonas aeruginosa Rare TESTING IN PROGRESS Organism 3 SEE COMMENTS Severe lower extremity edema - was on iv lasix 40mg, switched to PO lasix 20mg yesterday - continue to monitor BUN/CR. Hypothyroidisim - resume levothyroxine Anemia Generalized weakness - started PT yesterday - will be transferred down to inpatient rehab unit today DVT prophylaxis- Lovenox GI prophylaxis- Protonix Diet: low sodium DNR Pt admitted to the hospital for her cellulitis, she is too weak to go home, pt was accepted to the IRF unit for strengthening FAWAD WYMAN Oct 10, 2021 07:53 AMBER ADKINS MD Oct 10, 2021 18:31
[2021-10-10] MEDS ORDERED: TROUGH ORDER-PHARMACY XX ONE (08:00)
[2021-10-10] MEDS: SYSTANE EYE DROPS OU SCH ×4 (08:57→21:31)
[2021-10-10] MEDS: AREDS PO SCH ×4 (08:59→21:31)
--- NOTE | 2021-10-10 09:24 | Occupational Ther Daily Note ---
OT Current Status-Daily Note Subjective Pt resting in bed upon OT arrival, agreeable to tx. Pt was apprehensive about taking shower d/t fear of falling, but said she felt accomplished afterwards. Mental Status/Objective Patient Orientation: Person, Place, Situation Attachments: Trivedi Catheter ADL-Treatment Therapy Code Descriptions/Definitions Functional Gillespie Measure: 0=Not Assessed/NA 4=Minimal Assistance 1=Total Assistance 5=Supervision or Setup 2=Maximal Assistance 6=Modified Gillespie 3=Moderate Assistance 7=Complete IndependenceSCALE: Activities may be completed with or without assistive devices. 8-Xvegqxlevk-lieklnq completes the activity by him/herself with no assistance from a helper. 5-Set-up or Clean-up Assistance-helper sets up or cleans up; patient completes activity. [place] assists only prior to or following the activity. 4-Supervision or Touching Assistance-helper provides verbal cues and/or touching/steadying and/or contact guard assistance as patient completes activity. Assistance may be provided throughout the activity or intermittently. 3-Partial/Moderate Assistance-helper does LESS THAN HALF the effort. [place] lifts, holds or supports trunk or limbs, but provides less than half the effort. 2-Substantial/Maximal Assistance-helper does MORE THAN HALF the effort. [place] lifts or holds trunk or limbs and provides more than half the effort. 3-Kshzrmcjc-nszwoe does ALL the effort. Patient does none of the effort to complete the activity. Or, the assistance of 2 or more helpers is required for the patient to complete the activity. If activity was not attempted, code reason: 7-Patient Refused. 9-Not Applicable-not attempted and the patient did not perform the activity before the current illness, exacerbation or injury. 10-Not Attempted due to Environmental Limitations-(lack of equipment, weather restraints, etc.). 88-Not Attempted due to Medical Conditions or Safety Concerns. Oral Hygiene (QC): 4 (CGA for standing balance at sink) Shower/Bathe Self (QC): 3 (Mod A overall. Pt unable to wash bilaterally below the knees or buttocks/periarea. Min A for support when standing) Upper Body Dressing (QC): 5 Lower Body Dressing (QC): 2 (Max A overall. Pt able to thread trivedi bag through brief and pants, but needed assistance to thread BLE through both. Min A for standing balance when hiking pants up) On/Off Footwear: 2 (Max A to doff and don both gripper socks) Other Treatment Pt required min A to transfer supine<>EOB and CGA to stand from bed. She walked very slowly with FWW, CGA, into the bathroom to complete showering, dressing, an d oral care/grooming tasks. OT provided skilled instruction on FWW safety and placement, energy conservation techniques, and how to use AE (sock aide, fur weigher) during ADLs, pt verbalized understanding. Pt would benefit from continued skilled instruction with fur weigher for LBD, but she found the sock aide to not be beneficial at this time d/t pain in bilateral calves, will try again a t another date if pain subsides and pt is not able to lift legs to don socks. Pt was apprehensive about showering d/t fear of falling, but she handled all tasks well. She required cues for PLB and taking RBs throughout ADLs and functional transfers. After completing tasks standing at the sink, pt transferred to w/c, [facility], and was pushed to the therapy gym. She completed 8min sitting at arm bike (25 brar resistance) to increase her activity tolerance needed for ADLs and functional transfers. Pt pushed back to room, transferred into recliner, [facility]. Post tx, pt left in recliner with laboratory geneticist, call light in reach and all needs met. Education OT Patient Education: Correct positioning, Energy conservation, Exercise program, Modified ADL techniques, Progress toward Goal/Update tx plan, Purpose of tx/functional activities, Rehab process, Safety issues, Transfer techniques, Use of adapted equipment Teaching Recipient: Patient Teaching Methods: Demonstration, Discussion Response to Teaching: Verbalize Understanding, Return Demonstration OT Short Term Goals Short Term Goals Time Frame: Oct 17, 2021 Toileting hygiene: 4 Shower/bathe self: 4 Lower body dressin OT Last Repairer Goals Halfway Goals Time Frame: Oct 26, 2021 Eating (QC): 6 Oral Hygiene (QC): 6 Toileting Hygiene (QC): 6 Shower/Bathe Self (QC): 6 Upper Body Dressing (QC): 6 Lower Body Dressing (QC): 6 On/Off Footwear (QC): 6 Additional Goals: 1-Demonstrate ADL Tasks, 2-Verbalize Understanding, 3-ImproveStrength/Omari 1=Demonstrate adherence to instructed precautions during ADL tasks. 2=Patient will verbalize/demonstrate understanding of assistive devices/modifications for ADL. 3=Patient will improve strength/tolerance for activity to enable patient to perform ADL's. OT Education/Plan Problem List/Assessment Assessment: Decreased Activ Tolerance, Decreased UE Strength, Impaired Funct Balance, Impaired I ADL's, Impaired Self-Care Skills Discharge Recommendations Plan/Recommendations: Continue POC Treatment Plan/Plan of Care Patient would benefit from OT for education, treatment and training to promote independence in ADL's, mobility, safety and/or upper extremity function for ADL's. Plan of Care: ADL Retraining, Functional Mobility, Group Exercise/Act as Ind, UE Funct Exercise/Act Treatment Duration: Oct 26, 2021 Frequency: At least 5 of 7 days/Wk (IRF) Estimated Hrs Per Day: 1.5 hours per day Rehab Potential: Good Time/GCodes Start Time: 07:45 Stop Time: 09:15 Total Time Billed (hr/min): 90 Billed Treatment Time 1, ADL 5 (82'), Ex (8') JEWELS MCCORMICK OT Oct 10, 2021 09:24
[2021-10-10 09:27] LABS: BASOPHILS # (AUTO) 0.1 10^3/uL (0.0-0.1); BASOPHILS % (AUTO) 0 % (0-10); EOSINOPHILS # (AUTO) 0.3 10^3/uL (0.0-0.3); EOSINOPHILS % (AUTO) 3 % (0-10); HEMATOCRIT 33 % (35-52); HEMOGLOBIN 10.3 g/dL (11.5-16.0); LYMPHOCYTES # (AUTO) 1.9 10^3/uL (1.0-4.0); LYMPHOCYTES % (AUTO) 16 % (12-44); MEAN CORPUSCULAR HEMOGLOBIN 30 pg (25-34); MEAN CORPUSCULAR HGB CONC 31 g/dL (32-36); MEAN CORPUSCULAR VOLUME 98 fL (80-99); MEAN PLATELET VOLUME 8.9 fL (9.0-12.2); MONOCYTES # (AUTO) 1.2 10^3/uL (0.0-1.0); MONOCYTES % (AUTO) 10 % (0-12); NEUTROPHILS # (AUTO) 8.9 10^3/uL (1.8-7.8); NEUTROPHILS % (AUTO) 71 % (42-75); PLATELET COUNT 461 10^3/uL (130-400); WHITE BLOOD COUNT 12.5 10^3/uL (4.3-11.0)
[2021-10-10 09:45] LABS: ALBUMIN 2.9 GM/DL (3.2-4.5); BILIRUBIN,TOTAL 0.3 MG/DL (0.1-1.0); CALCIUM 8.5 MG/DL (8.5-10.1); CREATININE SERUM 1.21 MG/DL (0.60-1.30); POTASSIUM 3.7 MMOL/L (3.6-5.0); TOTAL PROTEIN 6.6 GM/DL (6.4-8.2)
[2021-10-10] MEDS: LACTOBACILLUS ACIDOPHILUS (PROBIOTIC) CAPSULE PO SCH ×3 (09:49→17:46)
[2021-10-10] MEDS: PANTOPRAZOLE 40 MG (PROTONIX) TAB PO SCH (09:49)
[2021-10-10] MEDS: ENOXAPARIN 40 MG/0.4 ML (LOVENOX) SYR SC SCH (09:49)
[2021-10-10] MEDS: VANCOMYCIN INJECTION 1,250 MG in NS (IVPB) 250 ML IV SCH (10:01)
[2021-10-10] MEDS: polyethylene glycoL POWDER 17 GM (MIRALAX) PACK PO SCH ×2 (10:58→21:59)
[2021-10-10] MEDS: DOCUSATE SODIUM 100 MG (COLACE) CAP PO SCH ×2 (10:58→21:59)
[2021-10-10] MEDS: SENNA W/DOCUSATE (SENOKOT S) TABLET PO SCH ×2 (11:00→21:59)
--- NOTE | 2021-10-10 12:06 | Physical Therapy Daily Note ---
PT Daily Note-Current Subjective Pt. agrees to Rx, initially c/o bilat leg and hip pain at 6/10 when she initiated movement, later states it had mostly subsided Pain Numeric Pain Scale: 5-Moderate Pain Location: Left (and right ) Location Body Site: Hip Pain Description: Ache Mental Status Patient Orientation: Normal For Age Attachments: Brian Catheter, IV Transfers SCALE: Activities may be completed with or without assistive devices. 9-Egoeujkdfv-uxmvlml completes the activity by him/herself with no assistance from a helper. 5-Set-up or Clean-up Assistance-helper sets up or cleans up; patient completes activity. [place] assists only prior to or following the activity. 4-Supervision or Touching Assistance-helper provides verbal cues and/or touching/steadying and/or contact guard assistance as patient completes activity. Assistance may be provided throughout the activity or intermittently. 3-Partial/Moderate Assistance-helper does LESS THAN HALF the effort. [place] lifts, holds or supports trunk or limbs, but provides less than half the effort. 2-Substantial/Maximal Assistance-helper does MORE THAN HALF the effort. [place] lifts or holds trunk or limbs and provides more than half the effort. 8-Ufymcwvdx-louemp does ALL the effort. Patient does none of the effort to complete the activity. Or, the assistance of 2 or more helpers is required for the patient to complete the activity. If activity was not attempted, code reason: 7-Patient Refused. 9-Not Applicable-not attempted and the patient did not perform the activity before the current illness, exacerbation or injury. 10-Not Attempted due to Environmental Limitations-(lack of equipment, weather restraints, etc.). 88-Not Attempted due to Medical Conditions or Safety Concerns. Roll Left & Right (QC): 4 Sit to Lying (QC): 3 Lying to Sitting/Side of Bed(Q: 4 Sit to Stand (QC): 6 Chair/Fgb-eg-Xztse Xfer(QC): 4 much emphasis on sup to sit and sit to sup to simulate home Gait Training Does the Patient Walk?: Yes Walk 10 feet (QC): 4 Walk 50 ft with 2 Turns(QC): 4 Gait Persons Needed: 1 Gait Assistive Device: FWW slow, no LOB, good even step length, good use of device, educated in safe approach and landing etc Wheelchair Training Does the Pt Use a Wheelchair?: Yes Wheel 50 ft with 2 turns (QC): 4 Type of Wheelchair: Manual Exercises Supine Ex: Bridging, Ankle pumps, Quad Set, Rolling, Glut sets, Lower trunk rotation, Heel Slides, Scooting, Straight leg raise (asst), Hip abd/add Supine Reps: 15 Seated Therapy Exercises: Ankle pumps, Sit to stand, Long arc quads, Shoulder Abd, Hip abd/add Seated Reps: 15 Standing: Heel/toe raises, Marching, Weight shifts Standing Reps: 15 Treatments as above, very slow , progress noted in all phases of Rx Assessment Current Status: Good Progress PT Correction Goals Automatic Clipper And Stripper Goals PT Correction Goals Time Frame: Nov 10, 2021 Roll Left & Right (QC): 6 Sit to Lying (QC): 6 Lying-Sitting on Side/Bed(QC): 6 Sit to Stand (QC): 6 Chair/Xzb-cp-Fybwf Xfer(QC): 6 Toilet Transfer (QC): 6 Car Transfer (QC): 6 Does the Patient Walk: Yes Walk 10 feet (QC): 6 Walk 50ft with 2 Turns (QC): 6 Walk 150 ft (QC): 6 Walking 10ft on Uneven Surface: 6 1 Step (curb) (QC): 4 4 Steps (QC): 4 12 Steps (QC): 4 Picking up an Object (QC): 6 Does the Pt use WC or Scooter?: No Wheel 50 feet with 2 turns (QC: 9 Type: N/A Wheel 150 feet: 9 Type: N/A PT Plan Treatment/Plan Treatment Plan: Continue Plan of Care Treatment Plan: Bed Mobility, Concurrent Therapy, Education, Functional Activity Omari, Functional Strength, Group Therapy, Gait, Safety, Therapeutic Exercise, Transfers Treatment Duration: Nov 10, 2021 Frequency: At least 5 of 7 days/Wk (IRF) Estimated Hrs Per Day: 1.5 hours per day Patient and/or Family Agrees t: Yes Safety Risks/Education Patient Education: Gait Training, Transfer Techniques, Correct Positioning, W/C Management, Disease Process, Safety Issues Teaching Recipient: Patient Teaching Methods: Demonstration, Discussion Response to Teaching: Verbalize Understanding, Return Demonstration, Reinforcement Needed Time/GCodes Time In: 1030 Time Out: 1200 Total Billed Treatment Time: 90 Total Billed Treatment 1,GT25m,EX35m,FA30m CANDACE QUIJANO PTA 27, 2022 12:06
[2021-10-10 19:27] VITALS: BP 118/56
--- NOTE | 2021-10-11 05:52 | PM&R Progress Note ---
Subjective HPI/CC On Admission Date Seen by Provider: Oct 11, 2021 Time Seen by Provider: 12:00 Pt is an 85 y/o female who was admitted to the hospital with severe edema and cellulitis - she was admitted for treatment of the infection, and was found to be profoundly weak with need for IRF Subjective/Events-last exam 10/11/2021: Doing better Lower extremity edema much improved Trivedi catheter still in place Antibiotics maintained 10/10/2021: Doing well Improved strength already Patient appears to be very debilitated and self neglected Vanc still maintained Trivedi cath in place for another few days due to incontinence Review of Systems General: Fatigue, Malaise Cardiovascular: Edema Musculoskeletal: leg pain Objective Exam Vital Signs Vital Signs Date Time Temp Pulse Resp B/P (MAP) Pulse Ox O2 Delivery O2 Flow Rate FiO2 10/11/21 19:20 37.3 88 18 116/56 (76) 91 Room Air Capillary Refill : General Appearance: No Apparent Distress, WD/WN, Chronically ill HEENT: PERRL/EOMI, Normal ENT Inspection, Pharynx Normal Neck: Full Range of Motion, Normal Inspection, Non Tender, Supple, Carotid Bru it Respiratory: Chest Non Tender, Lungs Clear, Normal Breath Sounds, No Accessory Muscle Use, No Respiratory Distress Cardiovascular: Regular Rate, Rhythm, No Gallop, No JVD, No Murmur, Normal Peripheral Pulses Gastrointestinal: Normal Bowel Sounds, No Organomegaly, No Pulsatile Mass, Non Tender, Soft Rectal: Deferred Back: Normal Inspection, No CVA Tenderness, No Vertebral Tenderness Extremity: Normal Capillary Refill, Normal Inspection, Normal Range of Motion, Non Tender, No Calf Tenderness, Pedal Edema, Swelling Neurologic/Psychiatric: Alert, Oriented x3, Normal Mood/Affect, risk control analyst II-XII Norm as Tested, Abnormal Gait, Depressed Affect, Motor Weakness (generalized) Skin: Normal Color, Warm/Dry, Rash (legs) Lymphatic: No Adenopathy Results/Procedures Lab Patient resulted labs reviewed. FIM Transfers Therapy Code Descriptions/Definitions Functional [place] Measure: 0=Not Assessed/NA 4=Minimal Assistance 1=Total Assistance 5=Supervision or Setup 2=Maximal Assistance 6=Modified [place] 3=Moderate Assistance 7=Complete IndependenceSCALE: Activities may be completed with or without assistive devices. 4-Arslaovruy-rzxfajy completes the activity by him/herself with no assistance from a helper. 5-Set-up or Clean-up Assistance-helper sets up or cleans up; patient completes activity. [place] assists only prior to or following the activity. 4-Supervision or Touching Assistance-helper provides verbal cues and/or touching/steadying and/or contact guard assistance as patient completes activity. Assistance may be provided throughout the activity or intermittently. 3-Partial/Moderate Assistance-helper does LESS THAN HALF the effort. [place] lifts, holds or supports trunk or limbs, but provides less than half the effort. 2-Substantial/Maximal Assistance-helper does MORE THAN HALF the effort. [place] lifts or holds trunk or limbs and provides more than half the effort. 9-Lsimvbvpe-nmvfob does ALL the effort. Patient does none of the effort to complete the activity. Or, the assistance of 2 or more helpers is required for the patient to complete the activity. If activity was not attempted, code reason: 7-Patient Refused. 9-Not Applicable-not attempted and the patient did not perform the activity before the current illness, exacerbation or injury. 10-Not Attempted due to Environmental Limitations-(lack of equipment, weather restraints, etc.). 88-Not Attempted due to Medical Conditions or Safety Concerns. Roll Left to Right (QC): 4 Sit to Lying (QC): 3 Sit to Stand (QC): 6 Chair/Kju-pn-Ztjwi Xfer(QC): 4 Car Transfer (QC): 3 Gait Training Does the Patient Walk?: Yes Walk 10 feet (QC): 4 Walk 50 ft with 2 Turns(QC): 4 Walk 150 ft (QC): 4 Walking 10ft/uneven surface-QC: 3 Gait Persons Needed: 1 Gait Assistive Device: FWW Wheelchair Training Does the Pt Use a Wheelchair?: Yes Wheel 50 ft with 2 turns (QC): 4 Wheel 150 ft (QC): 9 Type of Wheelchair: Manual Stair Training #of Steps: 2 1 Step (curb) (QC): 3 4 Steps (QC): 88 12 Steps (QC): 88 Balance Picking up an Object (QC): 88 ADL-Treatment Eating (QC): 6 (Per pt report) Oral Hygiene (QC): 4 (CGA for standing balance at sink) Shower/Bathe Self (QC): 3 (Mod A overall. Pt unable to wash bilaterally below the knees or buttocks/periarea. Min A for support when standing) Upper Body Dressing (QC): 5 Lower Body Dressing (QC): 2 (Max A overall. Pt able to thread trivedi bag through brief and pants, but needed assistance to thread BLE through both. Min A for standing balance when hiking pants up) On/Off Footwear (QC): 2 (Max A to doff and don both gripper socks) Toileting Hygiene (QC): 3 (Min A for standing balance per clinical judgement) Assessment/Plan Assessment and Plan Assess & Plan/Chief Complaint Assessment: Debility Cellulitis lower legs on Vanc Severe lower extremity edema Hypothyroidisim Anemia Hypoalbuminemia Elevated DDimer negative Dopplers Trivedi cath in place Plan: PT OT protocol Trivedi cath DC in 2 days Home meds Monitor closely 10/10/2021: Vanc PT OT 10/11/2021: Antibiotics Lower extremity edema management (1) Immobility Status: Acute (2) Cellulitis Status: Acute (3) Lower extremity edema Status: Acute (4) Hypothyroidism Status: Acute MOLLY MUIR DO Oct 11, 2021 05:52
[2021-10-11] MEDS: LEVOTHYROXINE 88 MCG (LEVOTHORID) TAB PO SCH (06:15)
[2021-10-11] MEDS: KCL 20 MEQ TAB (K-DUR) PO SCH (06:15)
[2021-10-11] MEDS: FUROSEMIDE 20 MG (LASIX) TAB PO SCH ×2 (06:15→17:12)
--- NOTE | 2021-10-11 07:11 | Progress Note ---
Subjective Subjective Date Seen by Provider: Oct 11, 2021 Time Seen by Provider: 08:40 Lesly Green is an 85y/o F being seen for follow up due to cellulitis and generalized weakness. Pt reports that PT went well yesterday. She is no longer having any leg pain while at rest but is getting some w/ exercise. Diarrhea is still present. States that it is about the same as it was yesterday. Review of Systems General: Fatigue, Malaise HEENT: No Head Aches, No Visual Changes Pulmonary: No Dyspnea; Cough Cardiovascular: Edema; No: Chest Pain, Palpitations Gastrointestinal: Diarrhea; No: Abdominal Pain, Constipation Genitourinary: No Dysuria, No Frequency Musculoskeletal: back pain, leg pain; No: neck pain Neurological: No: Weakness, Numbness All Other Systems Reviewed All Other Systems Reviewed: Yes Objective Exam Vital Signs Vital Signs Date Time Temp Pulse Resp B/P (MAP) Pulse Ox O2 Delivery O2 Flow Rate FiO2 10/10/21 21:40 Room Air 10/10/21 19:27 37.0 86 22 118/56 (76) 94 Room Air 10/10/21 09:00 Room Air 10/10/21 07:42 36.2 77 18 135/65 (88) 93 Room Air I & O 10/11/21 07:00 Intake Total 2377.5 ml Output Total 2350 ml Balance 27.5 ml General Appearance: No Apparent Distress, WD/WN, Chronically ill Eyes: Bilateral Eye Normal Inspection, Bilateral Eye PERRL HEENT: PERRL/EOMI; No Photophobia Neck: Non Tender, Supple Respiratory: Lungs Clear, Normal Breath Sounds, No Accessory Muscle Use, No Respiratory Distress Cardiovascular: Regular Rate, Rhythm, No Murmur, Normal Peripheral Pulses Gastrointestinal: Normal Bowel Sounds, No Organomegaly, No Pulsatile Mass, Non Tender, Soft Rectal: Deferred Back: Normal Inspection, No CVA Tenderness, No Vertebral Tenderness Extremity: Normal Capillary Refill, Non Tender, No Calf Tenderness, Pedal Edema, Swelling Neurologic/Psychiatric: Alert, Oriented x3, Normal Mood/Affect, wire technician II-XII Norm as Tested, Abnormal Gait, Depressed Affect, Motor Weakness (generalized) Skin: Normal Color, Warm/Dry, Rash (legs) Lymphatic: No Adenopathy Results Lab Laboratory Tests 10/10/21 09:18: White Blood Count 12.5H, Red Blood Count 3.40L, Hemoglobin 10.3L, Hematocrit 33L , Mean Corpuscular Volume 98, Mean Corpuscular Hemoglobin 30, Mean Corpuscular Hemoglobin Concent 31L, Red Cell Distribution Width 20.3H, Platelet Count 461H, Mean Platelet Volume 8.9L, Immature Granulocyte % (Auto) 1, Neutrophils (%) (Auto) 71, Lymphocytes (%) (Auto) 16, Monocytes (%) (Auto) 10, Eosinophils (%) (Auto) 3, Basophils (%) (Auto) 0, Neutrophils # (Auto) 8.9H, Lymphocytes # (Auto) 1.9, Monocytes # (Auto) 1.2H, Eosinophils # (Auto) 0.3, Basophils # (Auto) 0.1, Immature Granulocyte # (Auto) 0.1, Sodium Level 137, Potassium Level 3.7, Chloride Level 97L, Carbon Dioxide Level 28, Anion Gap 12, Blood Urea Nitrogen 25H, Creatinine 1.21, Estimat Glomerular Filtration Rate 44, BUN/Creatinine Ratio 21, Glucose Level 121H, Calcium Level 8.5, Corrected Calcium 9.4, Total Bilirubin 0.3, Aspartate Amino Transf (AST/SGOT) 32, Alanine Aminotransferase (ALT/SGPT) 25, Alkaline Phosphatase 66, Total Protein 6.6, Albumin 2.9L, Vancomycin Level Trough 12.6 Assessment/Plan Assessment/Plan Assessment and Plan Cellulitis Severe lower extremity edema Hypothyroidisim Anemia Hypoalbuminemia Elevated DDimer Generalized weakness Cellulitis - pt on IV antibiotics, ceftriaxone (day 2/6) stopped 10/08, wound culture has returned, started Vancomycin on 10/08 (day 4/8) - WOUND CULTURE RESULT Preliminary Verified 10/07/21- 1624Preliminary RML Source: CYST/ABSCESS / LEG, LEFT Order Location: Emergency Room - [place] Organism 1 Corynebacterium striatum Moderate Growth Organism 2 Pseudomonas aeruginosa Rare TESTING IN PROGRESS Organism 3 SEE COMMENTS . Recent literature reviews indicate Corynebacterium remain susceptible to vancomycin, linezolid, and tigecycline. In addition, most strains tested were susceptible to daptomycin and quinupristin-dalfopristin, as well as to rifampin, tetracycline, gentamicin, and meropenem. - Pseud aeru INTERP GENTAMICIN S TOBRAMYCIN S CEFTAZIDIME S CEFEPIME S PIP/TAZO S LEVOFLOXACIN S CIPROFLOXACIN S IMIPENEM S MEROPENEM S AZTREONAM S -pseudomonas sensitivities have returned, start ciprofloxacin to cover -seen by podiatry on 10/08 for toe nail care. -continue to monitor Severe lower extremity edema (improving - was on iv lasix 40mg, switched to PO lasix 20mg on 10/08 - continue to monitor BUN/CR. Generalized weakness - started PT on 10/08 - transferred down to inpatient rehab unit on 10/09, currently doing PT/OT/speech Hypothyroidisim - resume levothyroxine Anemia - monitor cbc, will need to add iron panel to blood in lab, Hypoalbuminemia - increase protein in diet, dietary consult for recommendations for pt pending how she is eating her meals now that she is not neglecting herself for care of her . Elevated DDimer - pt had negative dopplers. DVT prophylaxis- Lovenox GI prophylaxis- Protonix Diet: low sodium DNR Supervisory-Addendum Brief Verification & Attestation Participated in pt care: history, MDM, physical Personally performed: exam, history, MDM, supervision of care Care discussed with: Medical Student Procedures: n/a Results interpretation: Verified all documentation Agree with student note as documented. Pt has improved over the past few days, she is feeling better, stools are still loose, but less frequent than two days previously. She reports that she can now raise her legs on her own compared to admission she was unable to raise her legs from the bed. continue with iv antibiotics - vancomycin waiting on cdiff panel FAWAD WYMAN Oct 11, 2021 07:11 AMBER PAULINO MD Oct 12, 2021 09:25
[2021-10-11] MEDS: LOPERAMIDE 2 MG (IMODIUM) TABLET PO SCH (07:22)
[2021-10-11] MEDS: LACTOBACILLUS ACIDOPHILUS (PROBIOTIC) CAPSULE PO SCH ×3 (07:22→17:12)
[2021-10-11] MEDS: PANTOPRAZOLE 40 MG (PROTONIX) TAB PO SCH (07:22)
[2021-10-11] MEDS: AREDS PO SCH ×2 (07:23→20:06)
[2021-10-11] MEDS: SYSTANE EYE DROPS OU SCH ×2 (07:23→20:05)
[2021-10-11 07:31] VITALS: BP 139/63
[2021-10-11] MEDS: VANCOMYCIN INJECTION 1,250 MG in NS (IVPB) 250 ML IV SCH (08:18)
[2021-10-11] MEDS: ENOXAPARIN 40 MG/0.4 ML (LOVENOX) SYR SC SCH (08:18)
--- NOTE | 2021-10-11 09:28 | Occupational Ther Daily Note ---
OT Current Status-Daily Note Subjective Pt sitting in bed upon OT arrival, agreeable to tx. Pt believes her BLEs are looking better today and was excited that she is able to lift them higher off the ground today. Mental Status/Objective Patient Orientation: Person, Place, Situation Attachments: Brian Catheter, IV ADL-Treatment Therapy Code Descriptions/Definitions Functional [place] Measure: 0=Not Assessed/NA 4=Minimal Assistance 1=Total Assistance 5=Supervision or Setup 2=Maximal Assistance 6=Modified [place] 3=Moderate Assistance 7=Complete IndependenceSCALE: Activities may be completed with or without assistive devices. 1-Syesqechyy-nokcouq completes the activity by him/herself with no assistance from a helper. 5-Set-up or Clean-up Assistance-helper sets up or cleans up; patient completes activity. [place] assists only prior to or following the activity. 4-Supervision or Touching Assistance-helper provides verbal cues and/or touching/steadying and/or contact guard assistance as patient completes activity. Assistance may be provided throughout the activity or intermittently. 3-Partial/Moderate Assistance-helper does LESS THAN HALF the effort. [place] lifts, holds or supports trunk or limbs, but provides less than half the effort. 2-Substantial/Maximal Assistance-helper does MORE THAN HALF the effort. [place] lifts or holds trunk or limbs and provides more than half the effort. 9-Nocoacbnw-ydzlun does ALL the effort. Patient does none of the effort to complete the activity. Or, the assistance of 2 or more helpers is required for the patient to complete the activity. If activity was not attempted, code reason: 7-Patient Refused. 9-Not Applicable-not attempted and the patient did not perform the activity before the current illness, exacerbation or injury. 10-Not Attempted due to Environmental Limitations-(lack of equipment, weather restraints, etc.). 88-Not Attempted due to Medical Conditions or Safety Concerns. Oral Hygiene (QC): 4 (CGA-SBA standing at sink) Upper Body Dressing (QC): 5 (Threading IV through bra and shirt) Lower Body Dressing (QC): 2 (Max A to thread BLE through brief and pants and hike to knees. Min A for standing balance during hike) On/Off Footwear: 1 (gripper socks) Toileting Hygiene (QC): 3 (Mod A. Pt required assistance to maneuver clothing and min a for standing balance during hike. Pt able to wipe periarea while seating, but unable to wipe buttocks after BM) Other Treatment Pt transferred supine<>EOB, SBA, with increased time. She stood with Min A and walked to bathroom with FWW, CGA-SBA, to complete toileting, dressing, and oral care/grooming tasks. Pt required increased time to complete all tasks d/t BLE swelling and pain. She completed toileting and dressing while seated on the toilet, and then stood at sink for oral care/grooming tasks. Afterwards, she transferred to w/c and was pushed to the therapy gym to help conserve energy and provide RB. She completed 10min total on the arm bike, 8min seated (25watts resistance) and 2min standing (15-20watts resistance) to increase both sitting and standing activity tolerance. OT provided CGA for standing balance while pt stood at arm bike. Pt's standing activity tolerance was addressed further by st filemoning at the therapy mat and reaching in all planes to place/retrieve cones, CGA. Pt was determined to use FWW and walk back to her room, she completed with increased time (~5min to walk from therapy gym to room), CGA-SBA. Post tx, pt left in recliner with call light in reach and all needs met. Education OT Patient Education: Correct positioning, Energy conservation, Exercise program, Modified ADL techniques, Progress toward Goal/Update tx plan, Purpose of tx/functional activities, Rehab process, Safety issues, Transfer techniques Teaching Recipient: Patient Teaching Methods: Discussion Response to Teaching: Verbalize Understanding OT Short Term Goals Short Term Goals Time Frame: Oct 17, 2021 Toileting hygiene: 4 Shower/bathe self: 4 Lower body dressin OT [place] Operator Goals [place] Operator Goals Time Frame: Oct 26, 2021 Eating (QC): 6 Oral Hygiene (QC): 6 Toileting Hygiene (QC): 6 Shower/Bathe Self (QC): 6 Upper Body Dressing (QC): 6 Lower Body Dressing (QC): 6 On/Off Footwear (QC): 6 Additional Goals: 1-Demonstrate ADL Tasks, 2-Verbalize Understanding, 3- ImproveStrength/[place] 1=Demonstrate adherence to instructed precautions during ADL tasks. 2=Patient will verbalize/demonstrate understanding of assistive devices/m odifications for ADL. 3=Patient will improve strength/tolerance for activity to enable patient to perform ADL's. OT Education/Plan Problem List/Assessment Assessment: Decreased Activ Tolerance, Decreased UE Strength, Impaired Funct Balance, Impaired I ADL's, Impaired Self-Care Skills Discharge Recommendations Plan/Recommendations: Continue POC Treatment Plan/Plan of Care Patient would benefit from OT for education, treatment and training to promote independence in ADL's, mobility, safety and/or upper extremity function for ADL's. Plan of Care: ADL Retraining, Functional Mobility, Group Exercise/Act as Ind, UE Funct Exercise/Act Treatment Duration: Oct 26, 2021 Frequency: At least 5 of 7 days/Wk (IRF) Estimated Hrs Per Day: 1.5 hours per day Rehab Potential: Good Time/GCodes Start Time: 07:45 Stop Time: 09:20 Total Time Billed (hr/min): 95 Billed Treatment Time 1, ADL 3 (45'), Ex (10'), FA 2 (40') JEWELS MCCORMICK OT Oct 11, 2021 09:28
[2021-10-11] MEDS: DOCUSATE SODIUM 100 MG (COLACE) CAP PO SCH ×2 (09:44→20:06)
[2021-10-11] MEDS: SENNA W/DOCUSATE (SENOKOT S) TABLET PO SCH ×2 (09:45→20:06)
[2021-10-11] MEDS: polyethylene glycoL POWDER 17 GM (MIRALAX) PACK PO SCH ×2 (09:45→20:06)
--- NOTE | 2021-10-11 11:33 | Physical Therapy Daily Note ---
PT Daily Note-Current Subjective Pt. agrees to Rx. States she is mostly worried about being able to get in out her bed. Having some sad moments missing her Pain Location: No Pain Reported Mental Status Patient Orientation: Normal For Age Attachments: Brian Catheter Transfers SCALE: Activities may be completed with or without assistive devices. 8-Ymvrhnupbg-vkeiqmo completes the activity by him/herself with no assistance from a helper. 5-Set-up or Clean-up Assistance-helper sets up or cleans up; patient completes activity. [place] assists only prior to or following the activity. 4-Supervision or Touching Assistance-helper provides verbal cues and/or touching/steadying and/or contact guard assistance as patient completes activity. Assistance may be provided throughout the activity or intermittently. 3-Partial/Moderate Assistance-helper does LESS THAN HALF the effort. [place] lifts, holds or supports trunk or limbs, but provides less than half the effort. 2-Substantial/Maximal Assistance-helper does MORE THAN HALF the effort. [place] lifts or holds trunk or limbs and provides more than half the effort. 7-Hetuinarv-punqrx does ALL the effort. Patient does none of the effort to complete the activity. Or, the assistance of 2 or more helpers is required for the patient to complete the activity. If activity was not attempted, code reason: 7-Patient Refused. 9-Not Applicable-not attempted and the patient did not perform the activity before the current illness, exacerbation or injury. 10-Not Attempted due to Environmental Limitations-(lack of equipment, weather restraints, etc.). 88-Not Attempted due to Medical Conditions or Safety Concerns. Roll Left & Right (QC): 6 Sit to Lying (QC): 4 Lying to Sitting/Side of Bed(Q: 6 Sit to Stand (QC): 6 Chair/Ubx-ui-Pmdbu Xfer(QC): 4 Gait Training Does the Patient Walk?: Yes Walk 10 feet (QC): 4 Walk 50 ft with 2 Turns(QC): 4 Walk 150 ft (QC): 4 Gait Persons Needed: 1 Gait Assistive Device: FWW gait 165 ft x 2 FWW slow, no LOB, SBA Exercises Supine Ex: Bridging, Ankle pumps, Quad Set, Rolling, Glut sets, Lower trunk rotation, Heel Slides, Scooting, Straight leg raise, Hip abd/add Supine Reps: 12 (x2) Seated Therapy Exercises: Ankle pumps, Sit to stand, Long arc quads, Hip flexion Seated Reps: 10 NuStep Minutes: 8 NuStep Workload: 2 Treatments much work on sup to sit , gait, LE ex, safety etc. 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 PT [facility] Goals Time Frame: Nov 10, 2021 Roll Left & Right (QC): 6 Sit to Lying (QC): 6 Lying-Sitting on Side/Bed(QC): 6 Sit to Stand (QC): 6 Chair/Goi-uh-Qfmma Xfer(QC): 6 Toilet Transfer (QC): 6 Car Transfer (QC): 6 Does the Patient Walk: Yes Walk 10 feet (QC): 6 Walk 50ft with 2 Turns (QC): 6 Walk 150 ft (QC): 6 Walking 10ft on Uneven Surface: 6 1 Step (curb) (QC): 4 4 Steps (QC): 4 12 Steps (QC): 4 Picking up an Object (QC): 6 Does the Pt use WC or Scooter?: No Wheel 50 feet with 2 turns (QC: 9 Type: N/A Wheel 150 feet: 9 Type: N/A PT Plan Treatment/Plan Treatment Plan: Continue Plan of Care Treatment Plan: Bed Mobility, Concurrent Therapy, Education, Functional Activity Omari, Functional Strength, Group Therapy, Gait, Safety, Therapeutic Exercise, Transfers Treatment Duration: Nov 10, 2021 Frequency: At least 5 of 7 days/Wk (IRF) Estimated Hrs Per Day: 1.5 hours per day Patient and/or Family Agrees t: Yes Safety Risks/Education Patient Education: Gait Training, Transfer Techniques, Correct Positioning, Disease Process, Safety Issues Teaching Recipient: Patient Teaching Methods: Demonstration, Discussion Response to Teaching: Verbalize Understanding, Return Demonstration, Reinforcement Needed Time/GCodes Time In: 1000 Time Out: 1130 Total Billed Treatment Time: 90 Total Billed Treatment ,FA30m,EX30m,GT30m CANDACE QUIJANO LINEN ROOM HOUSEPERSON Oct 11, 2021 11:33
[2021-10-11 19:20] VITALS: BP 116/56
[2021-10-11] MEDS: HYDROcodone/APAP 5 MG/325 MG (LORTAB) TAB PO PRN (21:11)
--- NOTE | 2021-10-12 04:58 | PM&R Progress Note ---
Subjective HPI/CC On Admission Date Seen by Provider: Oct 12, 2021 Pt is an 85 y/o female who was admitted to the hospital with severe edema and cellulitis - she was admitted for treatment of the infection, and was found to be profoundly weak with need for IRF Subjective/Events-last exam 10/12/2021: Patient doing well No concerns Antibiotic tolerated Feels like she is getting stronger 10/11/2021: Doing better Lower extremity edema much improved Brian catheter still in place Antibiotics maintained 10/10/2021: Doing well Improved strength already Patient appears to be very debilitated and self neglected Vanc still maintained Brian cath in place for another few days due to incontinence Review of Systems General: Fatigue, Malaise Cardiovascular: Edema Objective Exam Vital Signs Vital Signs Date Time Temp Pulse Resp B/P (MAP) Pulse Ox O2 Delivery O2 Flow Rate FiO2 10/12/21 19:26 37.0 84 18 111/64 (80) 93 Room Air Capillary Refill : General Appearance: No Apparent Distress, WD/WN, Chronically ill HEENT: PERRL/EOMI, Normal ENT Inspection, Pharynx Normal Neck: Full Range of Motion, Normal Inspection, Non Tender, Supple, Carotid Br uit Respiratory: Chest Non Tender, Lungs Clear, Normal Breath Sounds, No Accessory Muscle Use, No Respiratory Distress Cardiovascular: Regular Rate, Rhythm, No Gallop, No JVD, No Murmur, Normal Peripheral Pulses Gastrointestinal: Normal Bowel Sounds, No Organomegaly, No Pulsatile Mass, Non Tender, Soft Rectal: Deferred Back: Normal Inspection, No CVA Tenderness, No Vertebral Tenderness Extremity: Normal Capillary Refill, Normal Inspection, Normal Range of Motion, Non Tender, No Calf Tenderness, Pedal Edema, Swelling Neurologic/Psychiatric: Alert, Oriented x3, Normal Mood/Affect, 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 FIM Transfers Therapy Code Descriptions/Definitions Functional [place] Measure: 0=Not Assessed/NA 4=Minimal Assistance 1=Total Assistance 5=Supervision or Setup 2=Maximal Assistance 6=Modified [place] 3=Moderate Assistance 7=Complete IndependenceSCALE: Activities may be completed with or without assistive devices. 2-Kkzoztylim-eskcasc completes the activity by him/herself with no assistance from a helper. 5-Set-up or Clean-up Assistance-helper sets up or cleans up; patient completes activity. [place] assists only prior to or following the activity. 4-Supervision or Touching Assistance-helper provides verbal cues and/or touching/steadying and/or contact guard assistance as patient completes activity. Assistance may be provided throughout the activity or intermittently. 3-Partial/Moderate Assistance-helper does LESS THAN HALF the effort. [place] lifts, holds or supports trunk or limbs, but provides less than half the effort. 2-Substantial/Maximal Assistance-helper does MORE THAN HALF the effort. [place] lifts or holds trunk or limbs and provides more than half the effort. 7-Elphirvpo-dxsiwc does ALL the effort. Patient does none of the effort to complete the activity. Or, the assistance of 2 or more helpers is required for the patient to complete the activity. If activity was not attempted, code reason: 7-Patient Refused. 9-Not Applicable-not attempted and the patient did not perform the activity before the current illness, exacerbation or injury. 10-Not Attempted due to Environmental Limitations-(lack of equipment, weather restraints, etc.). 88-Not Attempted due to Medical Conditions or Safety Concerns. Roll Left to Right (QC): 6 Sit to Lying (QC): 4 Sit to Stand (QC): 6 Chair/Ugx-pe-Ttqnp Xfer(QC): 4 Car Transfer (QC): 3 Gait Training Does the Patient Walk?: Yes Walk 10 feet (QC): 4 Walk 50 ft with 2 Turns(QC): 4 Walk 150 ft (QC): 4 Walking 10ft/uneven surface-QC: 3 Gait Persons Needed: 1 Gait Assistive Device: FWW Wheelchair Training Does the Pt Use a Wheelchair?: Yes Wheel 50 ft with 2 turns (QC): 4 Wheel 150 ft (QC): 9 Type of Wheelchair: Manual Stair Training #of Steps: 2 1 Step (curb) (QC): 3 4 Steps (QC): 88 12 Steps (QC): 88 Balance Picking up an Object (QC): 88 ADL-Treatment Eating (QC): 6 (Per pt report) Oral Hygiene (QC): 4 (CGA-SBA standing at sink) Shower/Bathe Self (QC): 3 (Mod A overall. Pt unable to wash bilaterally below the knees or buttocks/periarea. Min A for support when standing) Upper Body Dressing (QC): 5 (Threading IV through bra and shirt) Lower Body Dressing (QC): 2 (Max A to thread BLE through brief and pants and hike to knees. Min A for standing balance during hike) On/Off Footwear (QC): 1 (gripper socks) Toileting Hygiene (QC): 3 (Mod A. Pt required assistance to maneuver clothing and min a for standing balance during hike. Pt able to wipe periarea while seating, but unable to wipe buttocks after BM) Assessment/Plan Assessment and Plan Assess & Plan/Chief Complaint Assessment: Debility Cellulitis lower legs on Vanc Severe lower extremity edema Hypothyroidisim Anemia Hypoalbuminemia Elevated DDimer negative Dopplers Brian cath in place Plan: PT OT protocol Brian cath DC in 2 days Home meds Monitor closely 10/10/2021: Vanc PT OT 10/11/2021: Antibiotics Lower extremity edema management 10/12/2021: Monitor closely Complete antibiotics Wrap legs (1) Immobility Status: Acute (2) Cellulitis Status: Acute (3) Lower extremity edema Status: Acute (4) Hypothyroidism Status: Acute MOLLY MUIR DO Oct 12, 2021 04:58
[2021-10-12] MEDS: FUROSEMIDE 20 MG (LASIX) TAB PO SCH ×2 (06:39→17:01)
[2021-10-12] MEDS: KCL 20 MEQ TAB (K-DUR) PO SCH (06:39)
[2021-10-12] MEDS: LEVOTHYROXINE 88 MCG (LEVOTHORID) TAB PO SCH (06:39)
[2021-10-12 07:18] VITALS: BP 166/78
--- NOTE | 2021-10-12 07:58 | Progress Note ---
Subjective Subjective Date Seen by Provider: Oct 12, 2021 Time Seen by Provider: 08:45 Lesly Green is an 85y/o F being seen for follow up due to cellulitis and generalized weakness. Pt reports that PT went well yesterday. She states that she has some leg soreness from therapy. Appetite is good. She has not had any diarrhea stools in the last day. Says that she has been sleeping pretty well. Review of Systems General: Fatigue, Malaise HEENT: No Head Aches, No Visual Changes Pulmonary: No Dyspnea; Cough Cardiovascular: Edema; No: Chest Pain, Palpitations Gastrointestinal: Diarrhea (improving); No: Abdominal Pain, Constipation Genitourinary: No Dysuria, No Frequency Musculoskeletal: leg pain; No: neck pain, back pain Neurological: No: Weakness, Numbness All Other Systems Reviewed All Other Systems Reviewed: Yes Objective Exam Vital Signs Vital Signs Date Time Temp Pulse Resp B/P (MAP) Pulse Ox O2 Delivery O2 Flow Rate FiO2 10/12/21 07:18 37.3 80 16 166/78 (107) 91 Room Air 10/11/21 20:15 Room Air 10/11/21 19:20 37.3 88 18 116/56 (76) 91 Room Air 10/11/21 09:20 Room Air I & O 10/12/21 06:59 Intake Total 2307 ml Output Total 4575 ml Balance -2268 ml General Appearance: No Apparent Distress, WD/WN, Chronically ill HEENT: PERRL/EOMI, Normal ENT Inspection, Pharynx Normal; No Photophobia Neck: Non Tender, Supple Respiratory: Chest Non Tender, Lungs Clear, Normal Breath Sounds, No Accessory Muscle Use, No Respiratory Distress Cardiovascular: Regular Rate, Rhythm, No Murmur, Normal Peripheral Pulses Gastrointestinal: Normal Bowel Sounds, No Organomegaly, No Pulsatile Mass, Non Tender, Soft Rectal: Deferred Extremity: Normal Capillary Refill, Non Tender, No Calf Tenderness, Pedal E roxy, Swelling Neurologic/Psychiatric: Alert, Oriented x3, Normal Mood/Affect, principal architect II-XII Norm as Tested, Motor Weakness (generalized) Skin: Normal Color, Warm/Dry, Rash (legs) Lymphatic: No Adenopathy Assessment/Plan Assessment/Plan Assessment and Plan Cellulitis Severe lower extremity edema Hypothyroidisim Anemia Hypoalbuminemia Elevated DDimer Generalized weakness Cellulitis - pt on IV antibiotics, ceftriaxone (day 2/6) stopped 10/08, wound culture has returned, started Vancomycin on 10/08 (day 5/8) - WOUND CULTURE RESULT Preliminary Verified 10/07/21- 1624Preliminary RML Source: CYST/ABSCESS / LEG, LEFT Order Location: Emergency [facility] - [facility] Organism 1 Corynebacterium striatum Moderate Growth Organism 2 Pseudomonas aeruginosa Rare TESTING IN PROGRESS Organism 3 SEE COMMENTS . Recent literature reviews indicate Corynebacterium remain susceptible to vancomycin, linezolid, and tigecycline. In addition, most strains tested were susceptible to daptomycin and quinupristin-dalfopristin, as well as to rifampin, tetracycline, gentamicin, and meropenem. - Pseud aeru INTERP GENTAMICIN S TOBRAMYCIN S CEFTAZIDIME S CEFEPIME S PIP/TAZO S LEVOFLOXACIN S CIPROFLOXACIN S IMIPENEM S MEROPENEM S AZTREONAM S -pseudomonas sensitivities have returned, start ciprofloxacin to cover -seen by podiatry on 10/08 for toe nail care. -continue to monitor Severe lower extremity edema (improving - was on iv lasix 40mg, switched to PO lasix 20mg on 10/08 - continue to monitor BUN/CR. Generalized weakness - started PT on 10/08 - transferred down to inpatient rehab unit on 10/09, currently doing PT/OT/speech - remove catheter today if possible Hypothyroidism - resume levothyroxine Diarrhea - on loperamide - c.diff antigen and toxin ordered, stool sample still needs to be collected Anemia - monitor cbc, will need to add iron panel to blood in lab, Hypoalbuminemia - increase protein in diet, dietary consult for recommendations for pt pending how she is eating her meals now that she is not neglecting herself for care of her . Elevated DDimer - pt had negative dopplers. DVT prophylaxis- Lovenox GI prophylaxis- Protonix Diet: low sodium DNR Supervisory-Addendum Brief Verification & Attestation Participated in pt care: history, MDM, physical Personally performed: exam, history, MDM, supervision of care Care discussed with: Medical Student Procedures: n/a Results interpretation: Verified all documentation Cellulitis Severe lower extremity edema Hypothyroidisim Anemia Hypoalbuminemia Elevated DDimer Generalized weakness Agree with student note as documented. Pt has improved over the past few days, she is feeling better, she had a loose stool this morning (first one since yesterday). She reports that she is feeling better, she does not want the catheter removed today. I have written order for Brian to be removed on 10/13/21. Pending the outcome of the Cdiff study, will adjust her medications - perhaps add flagyl orally or change to vancomycin orally for treatment if cdiff is positive and move to cephalosporin for treatment of infection with pseudomonas and corynebacterium in bladder. For now we will continue with iv antibiotics - vancomycin waiting on cdiff panel FAWAD WYMAN Oct 12, 2021 07:58 AMBER PAULINO MD Oct 12, 2021 09:29
[2021-10-12] MEDS: LACTOBACILLUS ACIDOPHILUS (PROBIOTIC) CAPSULE PO SCH ×3 (08:00→17:01)
[2021-10-12] MEDS: SYSTANE EYE DROPS OU SCH ×2 (08:01→20:39)
[2021-10-12] MEDS: PANTOPRAZOLE 40 MG (PROTONIX) TAB PO SCH (08:01)
[2021-10-12] MEDS: AREDS PO SCH ×2 (08:01→20:39)
[2021-10-12] MEDS: ENOXAPARIN 40 MG/0.4 ML (LOVENOX) SYR SC SCH (08:01)
[2021-10-12] MEDS: LOPERAMIDE 2 MG (IMODIUM) TABLET PO SCH (08:01)
[2021-10-12] MEDS: VANCOMYCIN INJECTION 1,250 MG in NS (IVPB) 250 ML IV SCH (08:02)
[2021-10-12] MEDS: polyethylene glycoL POWDER 17 GM (MIRALAX) PACK PO SCH ×2 (08:52→20:40)
[2021-10-12] MEDS: SENNA W/DOCUSATE (SENOKOT S) TABLET PO SCH ×2 (08:52→20:41)
[2021-10-12] MEDS: DOCUSATE SODIUM 100 MG (COLACE) CAP PO SCH ×2 (08:52→20:40)
--- NOTE | 2021-10-12 09:21 | Occupational Ther Daily Note ---
OT Current Status-Daily Note Subjective Pt in bed being cleaned up by nursing after soiling the bed upon OT arrival, agreeable to tx. Pt says she's "in pain" and she "hurts all over." Pt on precautions for possible c-diff diagnosis. Mental Status/Objective Patient Orientation: Person, Place, Situation Attachments: Trivedi Catheter, IV ADL-Treatment Therapy Code Descriptions/Definitions Functional [place] Measure: 0=Not Assessed/NA 4=Minimal Assistance 1=Total Assistance 5=Supervision or Setup 2=Maximal Assistance 6=Modified [place] 3=Moderate Assistance 7=Complete IndependenceSCALE: Activities may be completed with or without assistive devices. 4-Cibeqsyxch-zdinsrc completes the activity by him/herself with no assistance from a helper. 5-Set-up or Clean-up Assistance-helper sets up or cleans up; patient completes activity. [place] assists only prior to or following the activity. 4-Supervision or Touching Assistance-helper provides verbal cues and/or touching/steadying and/or contact guard assistance as patient completes activity. Assistance may be provided throughout the activity or intermittently. 3-Partial/Moderate Assistance-helper does LESS THAN HALF the effort. [place] lifts, holds or supports trunk or limbs, but provides less than half the effort. 2-Substantial/Maximal Assistance-helper does MORE THAN HALF the effort. [place] lifts or holds trunk or limbs and provides more than half the effort. 6-Xwryfxuil-kuqtfe does ALL the effort. Patient does none of the effort to complete the activity. Or, the assistance of 2 or more helpers is required for the patient to complete the activity. If activity was not attempted, code reason: 7-Patient Refused. 9-Not Applicable-not attempted and the patient did not perform the activity before the current illness, exacerbation or injury. 10-Not Attempted due to Environmental Limitations-(lack of equipment, weather restraints, etc.). 88-Not Attempted due to Medical Conditions or Safety Concerns. Oral Hygiene (QC): 4 (CGA-SBA standing at sink) Shower/Bathe Self (QC): 3 (Mod A to wash bilaterally below the knees and the buttocks. Pt able to wash all other part while seated) Upper Body Dressing (QC): 5 (Assistance to thread IV through bra and shirt) Lower Body Dressing (QC): 2 (Max A overall. Assistance to thread trivedi bag and BLE through brief and pants. Min A to maneuver clothing in back and for standing balance during pant hike.) On/Off Footwear: 2 (Max A to doff and don both gripper socks. Pt able to hike socks when past heels) Toileting Hygiene (QC): 1 (total assist due to incontinent episode) Other Treatment Pt required Mod A to transfer supine<>EOB and Mod A to stand. She walked to bathroom with FWW, CGA, to complete showering, dressing, and oral care/grooming tasks. Pt moved slower today, requiring more time to complete tasks and frequent RBs in between tasks. OT attempted to educate pt on AE during dressing tasks, but pt declined at this time d/t pain and swelling in BLEs. With increased time and encouragement, pt was able to lean forward to hike socks and apparel for LBD. After completing showering and dressing, pt stood at sink to complete oral care tasks. She then walked back to her recliner, [facility], and participated in Theraband exercises to increase her BUE strength and endurance needed for ADLs and functional transfers. OT demonstrated proper technique for bicep curls, tricep extensions, and horizontal shoulder abductions with yellow Theraband (light resistance). Pt showed understanding of demonstration, completing 10 reps of each exercise. Post tx, pt left in recliner with call light in reach and all needs met. Education OT Patient Education: Correct positioning, Energy conservation, Exercise program, Modified ADL techniques, Progress toward Goal/Update tx plan, Purpose of tx/functional activities, Rehab process, Safety issues, Transfer techniques, Use of adapted equipment Teaching Recipient: Patient Teaching Methods: Demonstration, Discussion Response to Teaching: Verbalize Understanding, Return Demonstration OT Short Term Goals Short Term Goals Time Frame: Oct 17, 2021 Toileting hygiene: 4 Shower/bathe self: 4 Lower body dressin OT Trade Manager Goals Trade Manager Goals Time Frame: Oct 26, 2021 Eating (QC): 6 Oral Hygiene (QC): 6 Toileting Hygiene (QC): 6 Shower/Bathe Self (QC): 6 Upper Body Dressing (QC): 6 Lower Body Dressing (QC): 6 On/Off Footwear (QC): 6 Additional Goals: 1-Demonstrate ADL Tasks, 2-Verbalize Understanding, 3- ImproveStrength/[place] 1=Demonstrate adherence to instructed precautions during ADL tasks. 2=Patient will verbalize/demonstrate understanding of assistive devices/modifications for ADL. 3=Patient will improve strength/tolerance for activity to enable patient to perform ADL's. OT Education/Plan Problem List/Assessment Assessment: Decreased Activ Tolerance, Decreased UE Strength, Impaired Funct Balance, Impaired I ADL's, Impaired Self-Care Skills Discharge Recommendations Plan/Recommendations: Continue POC Treatment Plan/Plan of Care Patient would benefit from OT for education, treatment and training to promote independence in ADL's, mobility, safety and/or upper extremity function for ADL's. Plan of Care: ADL Retraining, Functional Mobility, Group Exercise/Act as Ind, UE Funct Exercise/Act Treatment Duration: Oct 26, 2021 Frequency: At least 5 of 7 days/Wk (IRF) Estimated Hrs Per Day: 1.5 hours per day Rehab Potential: Good Time/GCodes Start Time: 07:45 Stop Time: 09:15 Total Time Billed (hr/min): 90 Billed Treatment Time 1, ADL 5 (80'), Ex (10') JEWELS MCCORMICK OT Oct 12, 2021 09:21
--- NOTE | 2021-10-12 11:57 | Physical Therapy Daily Note ---
PT Daily Note-Current Subjective Pt. states she is sore and tired but feels all the therapy is definitely making her stronger. Pain Location: No Pain Reported Mental Status Patient Orientation: Normal For Age Transfers SCALE: Activities may be completed with or without assistive devices. 8-Sqircnkgce-sqenyad completes the activity by him/herself with no assistance from a helper. 5-Set-up or Clean-up Assistance-helper sets up or cleans up; patient completes activity. [place] assists only prior to or following the activity. 4-Supervision or Touching Assistance-helper provides verbal cues and/or touching/steadying and/or contact guard assistance as patient completes activity. Assistance may be provided throughout the activity or intermittently. 3-Partial/Moderate Assistance-helper does LESS THAN HALF the effort. [place] lifts, holds or supports trunk or limbs, but provides less than half the effort. 2-Substantial/Maximal Assistance-helper does MORE THAN HALF the effort. [place] lifts or holds trunk or limbs and provides more than half the effort. 2-Wlatuoirv-hspgjv does ALL the effort. Patient does none of the effort to complete the activity. Or, the assistance of 2 or more helpers is required for the patient to complete the activity. If activity was not attempted, code reason: 7-Patient Refused. 9-Not Applicable-not attempted and the patient did not perform the activity before the current illness, exacerbation or injury. 10-Not Attempted due to Environmental Limitations-(lack of equipment, weather restraints, etc.). 88-Not Attempted due to Medical Conditions or Safety Concerns. Roll Left & Right (QC): 6 Sit to Lying (QC): 4 Lying to Sitting/Side of Bed(Q: 6 Sit to Stand (QC): 6 Chair/Boe-uv-Xsrbj Xfer(QC): 4 emphasis on TRFs in out bed with TRF into bed being most challenging. Bed Rx table height was changed to see if this accommodates pt. pt. was able to lay from sitting 1/3 this Rx. sup to side to sit indep with use of hand rail Gait Training Does the Patient Walk?: Yes Walk 10 feet (QC): 6 Walk 50 ft with 2 Turns(QC): 6 Walk 150 ft (QC): 6 Gait Persons Needed: 1 Gait Assistive Device: FWW gait improving, no LOB, still slow, flexed over FWW Exercises Supine Ex: Bridging, Ankle pumps, Quad Set, Rolling, Glut sets, Lower trunk rotation, Heel Slides, Short Arc Quads, Scooting, Straight leg raise (assisted), Hip abd/add Supine Reps: 20 Seated Therapy Exercises: Ankle pumps, Sit to stand, Long arc quads, Hip flexion, Hip abd/add Seated Reps: 12 Assessment Current Status: Good Progress PT Chemical Radiation Technician Goals Chemical Radiation Technician Goals PT Chemical Radiation Technician Goals Time Frame: Nov 10, 2021 Roll Left & Right (QC): 6 Sit to Lying (QC): 6 Lying-Sitting on Side/Bed(QC): 6 Sit to Stand (QC): 6 Chair/Pjl-fx-Igidf Xfer(QC): 6 Toilet Transfer (QC): 6 Car Transfer (QC): 6 Does the Patient Walk: Yes Walk 10 feet (QC): 6 Walk 50ft with 2 Turns (QC): 6 Walk 150 ft (QC): 6 Walking 10ft on Uneven Surface: 6 1 Step (curb) (QC): 4 4 Steps (QC): 4 12 Steps (QC): 4 Picking up an Object (QC): 6 Does the Pt use WC or Scooter?: No Wheel 50 feet with 2 turns (QC: 9 Type: N/A Wheel 150 feet: 9 Type: N/A PT Plan Treatment/Plan Treatment Plan: Continue Plan of Care Treatment Plan: Bed Mobility, Concurrent Therapy, Education, Functional Activity Omari, Functional Strength, Group Therapy, Gait, Safety, Therapeutic Exercise, Transfers Treatment Duration: Nov 10, 2021 Frequency: At least 5 of 7 days/Wk (IRF) Estimated Hrs Per Day: 1.5 hours per day Patient and/or Family Agrees t: Yes Safety Risks/Education Patient Education: Gait Training, Transfer Techniques, Correct Positioning, Disease Process, Safety Issues Teaching Recipient: Patient Teaching Methods: Demonstration, Discussion Response to Teaching: Verbalize Understanding, Return Demonstration, Reinforcement Needed Time/GCodes Time In: 1000 Time Out: 1130 Total Billed Treatment Time: 90 Total Billed Treatment 1,EX35m,FA30m,GT25m CANDACE QUIJANO RN FIRST ASSISTANT Oct 12, 2021 11:57
[2021-10-12 19:26] VITALS: BP 111/64
[2021-10-12] MEDS: HYDROcodone/APAP 5 MG/325 MG (LORTAB) TAB PO PRN (23:05)
[2021-10-13 05:56] LABS: HEMATOCRIT 27 % (35-52); HEMOGLOBIN 8.4 g/dL (11.5-16.0); MEAN CORPUSCULAR HEMOGLOBIN 31 pg (25-34); MEAN CORPUSCULAR HGB CONC 32 g/dL (32-36); MEAN CORPUSCULAR VOLUME 97 fL (80-99); MEAN PLATELET VOLUME 9.4 fL (9.0-12.2); PLATELET COUNT 370 10^3/uL (130-400); WHITE BLOOD COUNT 8.8 10^3/uL (4.3-11.0)
[2021-10-13 06:00] LABS: ALBUMIN 2.5 GM/DL (3.2-4.5); POTASSIUM 4.1 MMOL/L (3.6-5.0)
[2021-10-13 06:01] LABS: CALCIUM 8.2 MG/DL (8.5-10.1)
[2021-10-13 06:02] LABS: TOTAL PROTEIN 5.5 GM/DL (6.4-8.2)
[2021-10-13 06:04] LABS: BILIRUBIN,TOTAL 0.3 MG/DL (0.1-1.0)
[2021-10-13 06:06] LABS: CREATININE SERUM 0.82 MG/DL (0.60-1.30)
--- NOTE | 2021-10-13 06:17 | PM&R Progress Note ---
Subjective HPI/CC On Admission Date Seen by Provider: Oct 13, 2021 Time Seen by Provider: 06:30 Pt is an 85 y/o female who was admitted to the hospital with severe edema and cellulitis - she was admitted for treatment of the infection, and was found to be profoundly weak with need for IRF Subjective/Events-last exam 10/13/2021: Patient sleeping well Overall improving every day Gaining strength Nurses have no concerns 10/12/2021: Patient doing well No concerns Antibiotic tolerated Feels like she is getting stronger 10/11/2021: Doing better Lower extremity edema much improved Trivedi catheter still in place Antibiotics maintained 10/10/2021: Doing well Improved strength already Patient appears to be very debilitated and self neglected Vanc still maintained Trivedi cath in place for another few days due to incontinence Review of Systems General: Fatigue, Malaise Cardiovascular: Edema Objective Exam Vital Signs Vital Signs Date Time Temp Pulse Resp B/P (MAP) Pulse Ox O2 Delivery O2 Flow Rate FiO2 10/13/21 08:04 Room Air 10/13/21 08:03 37.2 81 18 117/57 (77) 93 Capillary Refill : General Appearance: No Apparent Distress, WD/WN, Chronically ill HEENT: PERRL/EOMI, Normal ENT Inspection, Pharynx Normal Neck: Full Range of Motion, Normal Inspection, Non Tender, Supple, Carotid Bruit Respiratory: Chest Non Tender, Lungs Clear, Normal Breath Sounds, No Accessory Muscle Use, No Respiratory Distress Cardiovascular: Regular Rate, Rhythm, No Gallop, No JVD, No Murmur, Normal Peripheral Pulses Gastrointestinal: Normal Bowel Sounds, No Organomegaly, No Pulsatile Mass, Non Tender, Soft Rectal: Deferred Back: Normal Inspection, No CVA Tenderness, No Vertebral Tenderness Extremity: Normal Capillary Refill, Normal Inspection, Normal Range of Motion, Non Tender, No Calf Tenderness, Pedal Edema, Swelling Neurologic/Psychiatric: Alert, Oriented x3, Normal Mood/Affect, sales outfitter II-XII Norm as Tested, Abnormal Gait, Depressed Affect, Motor Weakness (generalized) Skin: Normal Color, Warm/Dry, Rash (legs) Lymphatic: No Adenopathy Results/Procedures Lab Laboratory Tests 10/13/21 05:23 Patient resulted labs reviewed. FIM Transfers Therapy Code Descriptions/Definitions Functional [place] Measure: 0=Not Assessed/NA 4=Minimal Assistance 1=Total Assistance 5=Supervision or Setup 2=Maximal Assistance 6=Modified [place] 3=Moderate Assistance 7=Complete IndependenceSCALE: Activities may be completed with or without assistive devices. 8-Wfpjpmwbrh-gukafcg completes the activity by him/herself with no assistance from a helper. 5-Set-up or Clean-up Assistance-helper sets up or cleans up; patient completes activity. [place] assists only prior to or following the activity. 4-Supervision or Touching Assistance-helper provides verbal cues and/or touching/steadying and/or contact guard assistance as patient completes ac tivity. Assistance may be provided throughout the activity or intermittently. 3-Partial/Moderate Assistance-helper does LESS THAN HALF the effort. [place] lifts, holds or supports trunk or limbs, but provides less than half the effort. 2-Substantial/Maximal Assistance-helper does MORE THAN HALF the effort. [place] lifts or holds trunk or limbs and provides more than half the effort. 2-Orcigcuoj-cppqqa does ALL the effort. Patient does none of the effort to complete the activity. Or, the assistance of 2 or more helpers is required for the patient to complete the activity. If activity was not attempted, code reason: 7-Patient Refused. 9-Not Applicable-not attempted and the patient did not perform the activity before the current illness, exacerbation or injury. 10-Not Attempted due to Environmental Limitations-(lack of equipment, weather restraints, etc.). 88-Not Attempted due to Medical Conditions or Safety Concerns. Roll Left to Right (QC): 6 Sit to Lying (QC): 4 Sit to Stand (QC): 6 Chair/Eyd-dj-Bwwlr Xfer(QC): 4 Car Transfer (QC): 3 Gait Training Does the Patient Walk?: Yes Walk 10 feet (QC): 6 Walk 50 ft with 2 Turns(QC): 6 Walk 150 ft (QC): 6 Walking 10ft/uneven surface-QC: 3 Gait Persons Needed: 1 Gait Assistive Device: FWW Wheelchair Training Does the Pt Use a Wheelchair?: Yes Wheel 50 ft with 2 turns (QC): 4 Wheel 150 ft (QC): 9 Type of Wheelchair: Manual Stair Training #of Steps: 2 1 Step (curb) (QC): 3 4 Steps (QC): 88 12 Steps (QC): 88 Balance Picking up an Object (QC): 88 ADL-Treatment Eating (QC): 6 (Per pt report) Oral Hygiene (QC): 4 (CGA-SBA standing at sink) Shower/Bathe Self (QC): 3 (Mod A to wash bilaterally below the knees and the buttocks. Pt able to wash all other part while seated) Upper Body Dressing (QC): 5 (Assistance to thread IV through bra and shirt) Lower Body Dressing (QC): 2 (Max A overall. Assistance to thread trivedi bag and BLE through brief and pants. Min A to maneuver clothing in back and for standing balance during pant hike.) On/Off Footwear (QC): 2 (Max A to doff and don both gripper socks. Pt able to hike socks when past heels) Toileting Hygiene (QC): 1 (total assist due to incontinent episode) Assessment/Plan Assessment and Plan Assess & Plan/Chief Complaint Assessment: Debility Cellulitis lower legs on Vanc Severe lower extremity edema Hypothyroidisim Anemia Hypoalbuminemia Elevated DDimer negative Dopplers Trivedi cath in place Plan: PT OT protocol Trivedi cath DC in 2 days Home meds Monitor closely 10/10/2021: Vanc PT OT 10/11/2021: Antibiotics Lower extremity edema management 10/12/2021: Monitor closely Complete antibiotics Wrap legs 10/13/2021: Complete antibiotics Supportive care (1) Immobility Status: Acute (2) Cellulitis Status: Acute (3) Lower extremity edema Status: Acute (4) Hypothyroidism Status: Acute MOLLY MUIR DO Oct 13, 2021 06:17
[2021-10-13] MEDS: LEVOTHYROXINE 88 MCG (LEVOTHORID) TAB PO SCH (06:22)
[2021-10-13] MEDS: FUROSEMIDE 20 MG (LASIX) TAB PO SCH ×2 (06:22→16:08)
[2021-10-13] MEDS: KCL 20 MEQ TAB (K-DUR) PO SCH (06:22)
[2021-10-13] MEDS: VANCOMYCIN 125 MG CAPSULE PO SCH ×3 (06:57→18:00)
[2021-10-13 08:03] VITALS: BP 117/57
[2021-10-13] MEDS: ENOXAPARIN 40 MG/0.4 ML (LOVENOX) SYR SC SCH (08:07)
[2021-10-13] MEDS: CHOLESTYRAMINE 4 GM (QUESTRAN LITE, PREVALITE) PKT PO SCH ×2 (08:07→18:00)
[2021-10-13] MEDS: LACTOBACILLUS ACIDOPHILUS (PROBIOTIC) CAPSULE PO SCH ×3 (08:08→18:00)
[2021-10-13] MEDS: LOPERAMIDE 2 MG (IMODIUM) TABLET PO SCH (08:08)
[2021-10-13] MEDS: PANTOPRAZOLE 40 MG (PROTONIX) TAB PO SCH (08:08)
[2021-10-13] MEDS: AREDS PO SCH ×2 (08:15→21:07)
[2021-10-13] MEDS: SYSTANE EYE DROPS OU SCH ×2 (08:15→21:08)
[2021-10-13] MEDS: polyethylene glycoL POWDER 17 GM (MIRALAX) PACK PO SCH ×2 (08:41→20:40)
[2021-10-13] MEDS: DOCUSATE SODIUM 100 MG (COLACE) CAP PO SCH ×2 (08:41→20:40)
[2021-10-13] MEDS: SENNA W/DOCUSATE (SENOKOT S) TABLET PO SCH ×2 (08:42→20:40)
[2021-10-13] MEDS: VANCOMYCIN INJECTION 1,250 MG in NS (IVPB) 250 ML IV SCH (08:54)
--- NOTE | 2021-10-13 09:03 | Physical Therapy Daily Note ---
PT Daily Note-Current Subjective Upon entering room, pt. in bed, a little frantic and upset about her Cdiff Dx. Pt. states she is not going in the bathroom bc she "cant get up and down from the toilet and is going to urinate in the diaper ". This SHOEMAKER APPRENTICE shared that I can put a BSC over the toilet and she can use a pullup brief and begin to walk to the toilet and use the cary etc. Pt. expresses that she doesnt want to ring the cary bc "people have to put all that on, so I just layed here uncomfortable needing a pilloe" It was reiterated to pt. that she needs to ring the cary for all needs, pt. demonstrated that she knows where her cary is and how to use it Pain Numeric Pain Scale: 5-Moderate Pain Location: Left (and right ) Location Body Site: Hip Pain Description: Heavy Mental Status Patient Orientation: Person, Place Transfers SCALE: Activities may be completed with or without assistive devices. 9-Rpocgrybaz-idczdjg completes the activity by him/herself with no assistance from a helper. 5-Set-up or Clean-up Assistance-helper sets up or cleans up; patient completes activity. [place] assists only prior to or following the activity. 4-Supervision or Touching Assistance-helper provides verbal cues and/or touching/steadying and/or contact guard assistance as patient completes activity. Assistance may be provided throughout the activity or intermittently. 3-Partial/Moderate Assistance-helper does LESS THAN HALF the effort. [place] lifts, holds or supports trunk or limbs, but provides less than half the effort. 2-Substantial/Maximal Assistance-helper does MORE THAN HALF the effort. [place] lifts or holds trunk or limbs and provides more than half the effort. 9-Ojgmobioc-tgopey does ALL the effort. Patient does none of the effort to complete the activity. Or, the assistance of 2 or more helpers is required for the patient to complete the activity. If activity was not attempted, code reason: 7-Patient Refused. 9-Not Applicable-not attempted and the patient did not perform the activity before the current illness, exacerbation or injury. 10-Not Attempted due to Environmental Limitations-(lack of equipment, weather restraints, etc.). 88-Not Attempted due to Medical Conditions or Safety Concerns. Roll Left & Right (QC): 4 Lying to Sitting/Side of Bed(Q: 4 Sit to Stand (QC): 4 Chair/Amr-ym-Hqnca Xfer(QC): 4 Toilet Transfer (QC): 4 BSC was placed and adjusted over the toilet for pt. TRFs which accommodated her well with SBA, pt. needed instruction for in out bed and seems to not remember any instruction or education from past therapy sessions Gait Training Does the Patient Walk?: Yes Walk 10 feet (QC): 4 Gait Persons Needed: 1 Gait Assistive Device: FWW 15ft x 2 in room to bthr and back, pt. refuses mult times to come out of her room. Attempted again to explain that staff will take care of the cdiff situation and manage all sanitary and isolation issues issues Exercises Supine Ex: Bridging, Ankle pumps, Rolling, Heel Slides, Scooting, Straight leg raise (asssited), Hip abd/add Supine Reps: 12 Treatments pt. in bed in diaper very heavy with BM and urine, Upon exiting bed pt. needed max assist to manage the falling brief and BM and urine, pt. ambulated to [facility] [place] with min to CGA, sat on BSC over the toilet with good success at managing sit to stand, Pt. upon standing was encouraged to attempt to clean herself with several wipes, this SHOEMAKER APPRENTICE double checking for cleanliness, pt. then sat and was instructed in use of manual arts therapist for donning a clean pull up brief and reviewed that this is the best garment for her to manage incontinence. pt. was able to pull brief up , refused to wear slacks or pants today. Pt. then stood at sink and washed hands thoroughly x 2 . Pt. did LE ex in bed in supine, up in recliner after Rx, with cary, phone and table as she liked as well as blanket and extra pillows. all movement very slow and required instruction Assessment Current Status: Fair Progress some confusin, memory issues and anxiety noted today, incont of bowel and urine, pain in LEs as well as audible crepitus hips and knees PT Shelter Goals Shelter Goals PT Shelter Goals Time Frame: Nov 10, 2021 Roll Left & Right (QC): 6 Sit to Lying (QC): 6 Lying-Sitting on Side/Bed(QC): 6 Sit to Stand (QC): 6 Chair/Vec-rq-Afrka Xfer(QC): 6 Toilet Transfer (QC): 6 Car Transfer (QC): 6 Does the Patient Walk: Yes Walk 10 feet (QC): 6 Walk 50ft with 2 Turns (QC): 6 Walk 150 ft (QC): 6 Walking 10ft on Uneven Surface: 6 1 Step (curb) (QC): 4 4 Steps (QC): 4 12 Steps (QC): 4 Picking up an Object (QC): 6 Does the Pt use WC or Scooter?: No Wheel 50 feet with 2 turns (QC: 9 Type: N/A Wheel 150 feet: 9 Type: N/A PT Plan Treatment/Plan Treatment Plan: Continue Plan of Care Treatment Plan: Bed Mobility, Concurrent Therapy, Education, Functional Activity Omari, Functional Strength, Group Therapy, Gait, Safety, Therapeutic Exercise, Transfers Treatment Duration: Nov 10, 2021 Frequency: At least 5 of 7 days/Wk (IRF) Estimated Hrs Per Day: 1.5 hours per day Patient and/or Family Agrees t: Yes Safety Risks/Education Patient Education: Gait Training, Transfer Techniques, Correct Positioning, Disease Process, Safety Issues Teaching Recipient: Patient Teaching Methods: Demonstration, Discussion Response to Teaching: Verbalize Understanding, Return Demonstration, Reinforcement Needed Time/GCodes Time In: 755 Time Out: 855 Total Billed Treatment Time: 60 Total Billed Treatment 1,EX20m,FA25mm,GT15m CANDACE QUIJANO SHOEMAKER APPRENTICE Oct 13, 2021 09:03
[2021-10-13 20:50] VITALS: BP 159/70
[2021-10-13] MEDS: HYDROcodone/APAP 5 MG/325 MG (LORTAB) TAB PO PRN (22:20)
[2021-10-14] MEDS: VANCOMYCIN 125 MG CAPSULE PO SCH ×4 (00:15→17:22)
--- NOTE | 2021-10-14 06:23 | PM&R Progress Note ---
Subjective HPI/CC On Admission Date Seen by Provider: Oct 14, 2021 Pt is an 85 y/o female who was admitted to the hospital with severe edema and cellulitis - she was admitted for treatment of the infection, and was found to be profoundly weak with need for IRF Subjective/Events-last exam 10/14/2021: Patient doing well Diarrhea improved Vancomycin p.o. and Questran helping No other concerns Trivedi catheter discontinued 10/13/2021: Patient sleeping well Overall improving every day Gaining strength Nurses have no concerns 10/12/2021: Patient doing well No concerns Antibiotic tolerated Feels like she is getting stronger 10/11/2021: Doing better Lower extremity edema much improved Trivedi catheter still in place Antibiotics maintained 10/10/2021: Doing well Improved strength already Patient appears to be very debilitated and self neglected Vanc still maintained Trivedi cath in place for another few days due to incontinence Review of Systems General: Fatigue, Malaise Gastrointestinal: Diarrhea Objective Exam Vital Signs Vital Signs Date Time Temp Pulse Resp B/P (MAP) Pulse Ox O2 Delivery O2 Flow Rate FiO2 10/14/21 19:22 37.6 81 22 154/71 (98) 97 Room Air Capillary Refill : General Appearance: No Apparent Distress, WD/WN, Chronically ill HEENT: PERRL/EOMI, Normal ENT Inspection, Pharynx Normal Neck: Full Range of Motion, Normal Inspection, Non Tender, Supple, Carotid Bruit Respiratory: Chest Non Tender, Lungs Clear, Normal Breath Sounds, No Accessory Muscle Use, No Respiratory Distress Cardiovascular: Regular Rate, Rhythm, No Gallop, No JVD, No Murmur, Normal Peripheral Pulses Gastrointestinal: Normal Bowel Sounds, No Organomegaly, No Pulsatile Mass, Non Tender, Soft Rectal: Deferred Back: Normal Inspection, No CVA Tenderness, No Vertebral Tenderness Extremity: Normal Capillary Refill, Normal Inspection, Normal Range of Motion, Non Tender, No Calf Tenderness, Pedal Edema, Swelling Neurologic/Psychiatric: Alert, Oriented x3, Normal Mood/Affect, media operator II-XII Norm as Tested, Abnormal Gait, Depressed Affect, Motor Weakness (generalized) Skin: Normal Color, Warm/Dry, Rash (legs) Lymphatic: No Adenopathy Results/Procedures Lab Patient resulted labs reviewed. FIM Transfers Therapy Code Descriptions/Definitions Functional [place] Measure: 0=Not Assessed/NA 4=Minimal Assistance 1=Total Assistance 5=Supervision or Setup 2=Maximal Assistance 6=Modified [place] 3=Moderate Assistance 7=Complete IndependenceSCALE: Activities may be completed with or without assistive devices. 3-Ihyziwtkjc-wjodibw completes the activity by him/herself with no assistance from a helper. 5-Set-up or Clean-up Assistance-helper sets up or cleans up; patient completes activity. [place] assists only prior to or following the activity. 4-Supervision or Touching Assistance-helper provides verbal cues and/or touching/steadying and/or contact guard assistance as patient completes activity. Assistance may be provided throughout the activity or intermittently. 3-Partial/Moderate Assistance-helper does LESS THAN HALF the effort. [place] lifts, holds or supports trunk or limbs, but provides less than half the effort. 2-Substantial/Maximal Assistance-helper does MORE THAN HALF the effort. [place] lifts or holds trunk or limbs and provides more than half the effort. 0-Mxpdtseht-mgjdbl does ALL the effort. Patient does none of the effort to complete the activity. Or, the assistance of 2 or more helpers is required for the patient to complete the activity. If activity was not attempted, code reason: 7-Patient Refused. 9-Not Applicable-not attempted and the patient did not perform the activity before the current illness, exacerbation or injury. 10-Not Attempted due to Environmental Limitations-(lack of equipment, weather restraints, etc.). 88-Not Attempted due to Medical Conditions or Safety Concerns. Roll Left to Right (QC): 4 Sit to Lying (QC): 4 Sit to Stand (QC): 4 Chair/Xvc-uv-Qgogw Xfer(QC): 4 Car Transfer (QC): 3 Gait Training Does the Patient Walk?: Yes Walk 10 feet (QC): 4 Walk 50 ft with 2 Turns(QC): 6 Walk 150 ft (QC): 6 Walking 10ft/uneven surface-QC: 3 Gait Persons Needed: 1 Gait Assistive Device: FWW Wheelchair Training Does the Pt Use a Wheelchair?: Yes Wheel 50 ft with 2 turns (QC): 4 Wheel 150 ft (QC): 9 Type of Wheelchair: Manual Stair Training #of Steps: 2 1 Step (curb) (QC): 3 4 Steps (QC): 88 12 Steps (QC): 88 Balance Picking up an Object (QC): 88 ADL-Treatment Eating (QC): 6 (Per pt report) Oral Hygiene (QC): 4 (CGA-SBA standing at sink) Shower/Bathe Self (QC): 3 (Mod A to wash bilaterally below the knees and the buttocks. Pt able to wash all other part while seated) Upper Body Dressing (QC): 5 (Assistance to thread IV through bra and shirt) Lower Body Dressing (QC): 2 (Max A overall. Assistance to thread trivedi bag and BLE through brief and pants. Min A to maneuver clothing in back and for standing balance during pant hike.) On/Off Footwear (QC): 2 (Max A to doff and don both gripper socks. Pt able to hike socks when past heels) Toileting Hygiene (QC): 1 (total assist due to incontinent episode) Assessment/Plan Assessment and Plan Assess & Plan/Chief Complaint Assessment: Debility Cellulitis lower legs on Vanc Severe lower extremity edema Hypothyroidisim Anemia Hypoalbuminemia Elevated DDimer negative Dopplers Trivedi cath DC C. difficile colitis Plan: PT OT protocol Trivedi cath DC in 2 days Home meds Monitor closely 10/10/2021: Vanc PT OT 10/11/2021: Antibiotics Lower extremity edema management 10/12/2021: Monitor closely Complete antibiotics Wrap legs 10/13/2021: Complete antibiotics Supportive care 10/14/2021: C. difficile treatment Supportive care (1) Immobility Status: Acute (2) Cellulitis Status: Acute (3) Lower extremity edema Status: Acute (4) Hypothyroidism Status: Acute MOLLY MUIR DO Oct 14, 2021 06:23
[2021-10-14] MEDS: KCL 20 MEQ TAB (K-DUR) PO SCH (06:29)
[2021-10-14] MEDS: FUROSEMIDE 20 MG (LASIX) TAB PO SCH ×2 (06:30→17:22)
[2021-10-14] MEDS: LEVOTHYROXINE 88 MCG (LEVOTHORID) TAB PO SCH (06:30)
[2021-10-14 07:17] VITALS: BP 125/64
[2021-10-14] MEDS: LACTOBACILLUS ACIDOPHILUS (PROBIOTIC) CAPSULE PO SCH ×3 (09:03→17:22)
[2021-10-14] MEDS: CHOLESTYRAMINE 4 GM (QUESTRAN LITE, PREVALITE) PKT PO SCH ×2 (09:03→17:27)
[2021-10-14] MEDS: LOPERAMIDE 2 MG (IMODIUM) TABLET PO SCH (09:04)
[2021-10-14] MEDS: SENNA W/DOCUSATE (SENOKOT S) TABLET PO SCH ×2 (09:04→20:46)
[2021-10-14] MEDS: ENOXAPARIN 40 MG/0.4 ML (LOVENOX) SYR SC SCH (09:04)
[2021-10-14] MEDS: VANCOMYCIN INJECTION 1,250 MG in NS (IVPB) 250 ML IV SCH (09:05)
[2021-10-14] MEDS: SYSTANE EYE DROPS OU SCH ×2 (09:11→20:47)
[2021-10-14] MEDS: AREDS PO SCH ×2 (09:11→20:47)
[2021-10-14] MEDS: DOCUSATE SODIUM 100 MG (COLACE) CAP PO SCH ×2 (09:13→20:45)
[2021-10-14] MEDS: polyethylene glycoL POWDER 17 GM (MIRALAX) PACK PO SCH ×2 (09:13→20:46)
[2021-10-14] MEDS: PANTOPRAZOLE 40 MG (PROTONIX) TAB PO SCH (10:18)
[2021-10-14 19:22] VITALS: BP 154/71
[2021-10-15] MEDS: VANCOMYCIN 125 MG CAPSULE PO SCH ×5 (00:17→23:04)
[2021-10-15] MEDS: HYDROcodone/APAP 5 MG/325 MG (LORTAB) TAB PO PRN (01:11)
--- NOTE | 2021-10-15 04:13 | PM&R Progress Note ---
Subjective HPI/CC On Admission Date Seen by Provider: Oct 15, 2021 Pt is an 85 y/o female who was admitted to the hospital with severe edema and cellulitis - she was admitted for treatment of the infection, and was found to be profoundly weak with need for IRF Subjective/Events-last exam 10/15/2021: Patient feels better Diarrhea less intense Lower extremity edema improved Vancomycin completed 10/14/2021: Patient doing well Diarrhea improved Vancomycin p.o. and Questran helping No other concerns Trivedi catheter discontinued 10/13/2021: Patient sleeping well Overall improving every day Gaining strength Nurses have no concerns 10/12/2021: Patient doing well No concerns Antibiotic tolerated Feels like she is getting stronger 10/11/2021: Doing better Lower extremity edema much improved Trivedi catheter still in place Antibiotics maintained 10/10/2021: Doing well Improved strength already Patient appears to be very debilitated and self neglected Vanc still maintained Trivedi cath in place for another few days due to incontinence Review of Systems General: Fatigue, Malaise Cardiovascular: Edema Objective Exam Vital Signs Vital Signs Date Time Temp Pulse Resp B/P (MAP) Pulse Ox O2 Delivery O2 Flow Rate FiO2 10/15/21 21:00 Room Air 10/15/21 20:08 37.2 81 18 130/71 (90) 95 Capillary Refill : General Appearance: No Apparent Distress, WD/WN, Chronically ill HEENT: PERRL/EOMI, Normal ENT Inspection, Pharynx Normal Neck: Full Range of Motion, Normal Inspection, Non Tender, Supple, Carotid Bruit Respiratory: Chest Non Tender, Lungs Clear, Normal Breath Sounds, No Accessory Muscle Use, No Respiratory Distress Cardiovascular: Regular Rate, Rhythm, No Gallop, No JVD, No Murmur, Normal Peripheral Pulses Gastrointestinal: Normal Bowel Sounds, No Organomegaly, No Pulsatile Mass, Non Tender, Soft Rectal: Deferred Back: Normal Inspection, No CVA Tenderness, No Vertebral Tenderness Extremity: Normal Capillary Refill, Normal Inspection, Normal Range of Motion, Non Tender, No Calf Tenderness, Pedal Edema, Swelling Neurologic/Psychiatric: Alert, Oriented x3, Normal Mood/Affect, laminator preforms II-XII Norm as Tested, Abnormal Gait, Depressed Affect, Motor Weakness (generalized) Skin: Normal Color, Warm/Dry, Rash (legs) Lymphatic: No Adenopathy Results/Procedures Lab Patient resulted labs reviewed. FIM Transfers Therapy Code Descriptions/Definitions Functional [place] Measure: 0=Not Assessed/NA 4=Minimal Assistance 1=Total Assistance 5=Supervision or Setup 2=Maximal Assistance 6=Modified [place] 3=Moderate Assistance 7=Complete IndependenceSCALE: Activities may be completed with or without assistive devices. 0-Zjmbbmerzi-rqydyiz completes the activity by him/herself with no assistance from a helper. 5-Set-up or Clean-up Assistance-helper sets up or cleans up; patient completes activity. [place] assists only prior to or following the activity. 4-Supervision or Touching Assistance-helper provides verbal cues and/or touching/steadying and/or contact guard assistance as patient completes activity. Assistance may be provided throughout the activity or intermittently. 3-Partial/Moderate Assistance-helper does LESS THAN HALF the effort. [place] lifts, holds or supports trunk or limbs, but provides less than half the effort. 2-Substantial/Maximal Assistance-helper does MORE THAN HALF the effort. [place] lifts or holds trunk or limbs and provides more than half the effort. 2-Qccdncqtz-jaxrwz does ALL the effort. Patient does none of the effort to complete the activity. Or, the assistance of 2 or more helpers is required for the patient to complete the activity. If activity was not attempted, code reason: 7-Patient Refused. 9-Not Applicable-not attempted and the patient did not perform the activity before the current illness, exacerbation or injury. 10-Not Attempted due to Environmental Limitations-(lack of equipment, weather restraints, etc.). 88-Not Attempted due to Medical Conditions or Safety Concerns. Roll Left to Right (QC): 4 Sit to Lying (QC): 4 Sit to Stand (QC): 4 Chair/Czu-mq-Evxha Xfer(QC): 4 Car Transfer (QC): 3 Gait Training Does the Patient Walk?: Yes Walk 10 feet (QC): 4 Walk 50 ft with 2 Turns(QC): 6 Walk 150 ft (QC): 6 Walking 10ft/uneven surface-QC: 3 Gait Persons Needed: 1 Gait Assistive Device: FWW Wheelchair Training Does the Pt Use a Wheelchair?: Yes Wheel 50 ft with 2 turns (QC): 4 Wheel 150 ft (QC): 9 Type of Wheelchair: Manual Stair Training #of Steps: 2 1 Step (curb) (QC): 3 4 Steps (QC): 88 12 Steps (QC): 88 Balance Picking up an Object (QC): 88 ADL-Treatment Eating (QC): 6 (Per pt report) Oral Hygiene (QC): 4 (CGA-SBA standing at sink) Shower/Bathe Self (QC): 3 (Mod A to wash bilaterally below the knees and the buttocks. Pt able to wash all other part while seated) Upper Body Dressing (QC): 5 (Assistance to thread IV through bra and shirt) Lower Body Dressing (QC): 2 (Max A overall. Assistance to thread trivedi bag and BLE through brief and pants. Min A to maneuver clothing in back and for standing balance during pant hike.) On/Off Footwear (QC): 2 (Max A to doff and don both gripper socks. Pt able to hike socks when past heels) Toileting Hygiene (QC): 1 (total assist due to incontinent episode) Assessment/Plan Assessment and Plan Assess & Plan/Chief Complaint Assessment: Debility Cellulitis lower legs on Vanc Severe lower extremity edema Hypothyroidisim Anemia Hypoalbuminemia Elevated DDimer negative Dopplers Trivedi cath DC C. difficile colitis Plan: PT OT protocol Trivedi cath DC in 2 days Home meds Monitor closely 10/10/2021: Vanc PT OT 10/11/2021: Antibiotics Lower extremity edema management 10/12/2021: Monitor closely Complete antibiotics Wrap legs 10/13/2021: Complete antibiotics Supportive care 10/14/2021: C. difficile treatment Supportive care 10/15/2021: Continue Zofran and vancomycin p.o. (1) Immobility Status: Acute (2) Cellulitis Status: Acute (3) Lower extremity edema Status: Acute (4) Hypothyroidism Status: Acute MOLLY MUIR DO Oct 15, 2021 04:13
[2021-10-15 05:33] LABS: BASOPHILS # (AUTO) 0.1 10^3/uL (0.0-0.1); BASOPHILS % (AUTO) 1 % (0-10); EOSINOPHILS # (AUTO) 0.6 10^3/uL (0.0-0.3); EOSINOPHILS % (AUTO) 7 % (0-10); HEMATOCRIT 26 % (35-52); HEMOGLOBIN 8.3 g/dL (11.5-16.0); LYMPHOCYTES # (AUTO) 1.8 10^3/uL (1.0-4.0); LYMPHOCYTES % (AUTO) 20 % (12-44); MEAN CORPUSCULAR HEMOGLOBIN 31 pg (25-34); MEAN CORPUSCULAR HGB CONC 32 g/dL (32-36); MEAN CORPUSCULAR VOLUME 96 fL (80-99); MEAN PLATELET VOLUME 9.2 fL (9.0-12.2); MONOCYTES # (AUTO) 1.4 10^3/uL (0.0-1.0); MONOCYTES % (AUTO) 16 % (0-12); NEUTROPHILS # (AUTO) 4.9 10^3/uL (1.8-7.8); NEUTROPHILS % (AUTO) 55 % (42-75); PLATELET COUNT 395 10^3/uL (130-400); WHITE BLOOD COUNT 8.9 10^3/uL (4.3-11.0)
[2021-10-15 05:44] LABS: ALBUMIN 2.5 GM/DL (3.2-4.5); POTASSIUM 4.1 MMOL/L (3.6-5.0)
[2021-10-15 05:47] LABS: TOTAL PROTEIN 5.4 GM/DL (6.4-8.2)
[2021-10-15 05:48] LABS: BILIRUBIN,TOTAL 0.4 MG/DL (0.1-1.0)
[2021-10-15 05:50] LABS: CREATININE SERUM 0.98 MG/DL (0.60-1.30)
[2021-10-15] MEDS: LEVOTHYROXINE 88 MCG (LEVOTHORID) TAB PO SCH (06:37)
[2021-10-15] MEDS: FUROSEMIDE 20 MG (LASIX) TAB PO SCH ×2 (06:37→17:05)
[2021-10-15] MEDS: KCL 20 MEQ TAB (K-DUR) PO SCH (06:37)
[2021-10-15 07:15] VITALS: BP 160/70
[2021-10-15] MEDS: PANTOPRAZOLE 40 MG (PROTONIX) TAB PO SCH (07:47)
[2021-10-15] MEDS: LOPERAMIDE 2 MG (IMODIUM) TABLET PO SCH (07:47)
[2021-10-15] MEDS: LACTOBACILLUS ACIDOPHILUS (PROBIOTIC) CAPSULE PO SCH ×3 (07:47→17:05)
[2021-10-15] MEDS: AREDS PO SCH ×2 (07:48→23:04)
[2021-10-15] MEDS: SYSTANE EYE DROPS OU SCH ×2 (07:48→20:15)
[2021-10-15] MEDS: SENNA W/DOCUSATE (SENOKOT S) TABLET PO SCH ×2 (07:50→19:34)
[2021-10-15] MEDS: DOCUSATE SODIUM 100 MG (COLACE) CAP PO SCH ×2 (07:50→19:33)
[2021-10-15] MEDS: polyethylene glycoL POWDER 17 GM (MIRALAX) PACK PO SCH ×2 (07:50→19:34)
[2021-10-15] MEDS: ENOXAPARIN 40 MG/0.4 ML (LOVENOX) SYR SC SCH (07:51)
[2021-10-15] MEDS: CHOLESTYRAMINE 4 GM (QUESTRAN LITE, PREVALITE) PKT PO SCH ×2 (08:57→18:18)
--- NOTE | 2021-10-15 09:27 | Occupational Ther Daily Note ---
OT Current Status-Daily Note Subjective Pt sitting up in bed upon OT arrival, more agreeable to tx after IV was removed from LUE. Mental Status/Objective Patient Orientation: Person, Place, Situation ADL-Treatment Therapy Code Descriptions/Definitions Functional [place] Measure: 0=Not Assessed/NA 4=Minimal Assistance 1=Total Assistance 5=Supervision or Setup 2=Maximal Assistance 6=Modified [place] 3=Moderate Assistance 7=Complete IndependenceSCALE: Activities may be completed with or without assistive devices. 2-Lzffijejhc-rskuqwa completes the activity by him/herself with no assistance from a helper. 5-Set-up or Clean-up Assistance-helper sets up or cleans up; patient completes activity. [place] assists only prior to or following the activity. 4-Supervision or Touching Assistance-helper provides verbal cues and/or anya naila/steadying and/or contact guard assistance as patient completes activity. Assistance may be provided throughout the activity or intermittently. 3-Partial/Moderate Assistance-helper does LESS THAN HALF the effort. [place] lifts, holds or supports trunk or limbs, but provides less than half the effort. 2-Substantial/Maximal Assistance-helper does MORE THAN HALF the effort. [place] lifts or holds trunk or limbs and provides more than half the effort. 0-Rnenbrcsk-owxwdy does ALL the effort. Patient does none of the effort to complete the activity. Or, the assistance of 2 or more helpers is required for the patient to complete the activity. If activity was not attempted, code reason: 7-Patient Refused. 9-Not Applicable-not attempted and the patient did not perform the activity before the current illness, exacerbation or injury. 10-Not Attempted due to Environmental Limitations-(lack of equipment, weather restraints, etc.). 88-Not Attempted due to Medical Conditions or Safety Concerns. Oral Hygiene (QC): 4 (CGA-SBA for standing balance) Shower/Bathe Self (QC): 3 (Min A to wash/dry buttocks) Upper Body Dressing (QC): 5 Lower Body Dressing (QC): 3 (Min-Mod A to thread BLE through brief and pants. CGA for standing balance during pant hike) On/Off Footwear: 2 (Max A to don both gripper socks) Toileting Hygiene (QC): 3 (Min A for standing balance during wiping and pant hike) Other Treatment Pt was apprehensive about shower d/t fear of pulling IV out of LUE, but was agreeable after nursing removed it. She required Min A to move BLE out of bed and SBA to stand from EOB. Pt walked slowly into bathroom, CGA-SBA, to complete showering, dressing, toileting, and oral care/grooming tasks. She requested to use the bathroom after showering, so she completed LBD on the toilet. Pt becoming more familiar with AE but still required verbal and tactile cues to use production tester appropriately. Pt was determined to stand at sink to complete oral/grooming tasks, CGA-SBA. She was wheeled down to therapy gym to participate in white board task that challenged her standing activity tolerance and functional balance, standing ~8mins. She then participated in simulated LBD task with graded clothes pins to increase flexibility needed for LBD and footwear tasks. 4 clothespins were placed on her BLEs, and pt had to reach down to retrieve them. She was able to grab 3/4 with increased time, but required Min A to grab last clothespin on R foot. Pt was pushed back to room and transferred into recliner, SBA. Post tx, pt left in recliner with call light in reach and all needs met. Education OT Patient Education: Correct positioning, Energy conservation, Exercise program, Modified ADL techniques, Progress toward Goal/Update tx plan, Purpose of tx/functional activities, Rehab process, Safety issues, Use of adapted equipment Teaching Recipient: Patient Teaching Methods: Discussion Response to Teaching: Verbalize Understanding, Reinforcement Needed OT Short Term Goals Short Term Goals Time Frame: Oct 17, 2021 Toileting hygiene: 4 Shower/bathe self: 4 Lower body dressin OT Fruit Distributor Goals [facility] Goals Time Frame: Oct 26, 2021 Eating (QC): 6 Oral Hygiene (QC): 6 Toileting Hygiene (QC): 6 Shower/Bathe Self (QC): 6 Upper Body Dressing (QC): 6 Lower Body Dressing (QC): 6 On/Off Footwear (QC): 6 Additional Goals: 1-Demonstrate ADL Tasks, 2-Verbalize Understanding, 3- ImproveStrength/Omari 1=Demonstrate adherence to instructed precautions during ADL tasks. 2=Patient will verbalize/demonstrate understanding of assistive devices/modifications for ADL. 3=Patient will improve strength/tolerance for activity to enable patient to perform ADL's. OT Education/Plan Problem List/Assessment Assessment: Decreased Activ Tolerance, Decreased UE Strength, Impaired Funct Balance, Impaired I ADL's, Impaired Self-Care Skills Discharge Recommendations Plan/Recommendations: Continue POC Treatment Plan/Plan of Care Patient would benefit from OT for education, treatment and training to promote independence in ADL's, mobility, safety and/or upper extremity function for ADL's. Plan of Care: ADL Retraining, Functional Mobility, Group Exercise/Act as Ind, UE Funct Exercise/Act Treatment Duration: Oct 26, 2021 Frequency: At least 5 of 7 days/Wk (IRF) Estimated Hrs Per Day: 1.5 hours per day Rehab Potential: Good Time/GCodes Start Time: 07:45 Stop Time: 09:20 Total Time Billed (hr/min): 95 Billed Treatment Time 1, ADL 5 (75'), FA 1 (20') JEWELS MCCORMICK OT Oct 15, 2021 09:27
--- NOTE | 2021-10-15 11:04 | Physical Therapy Daily Note ---
PT Daily Note-Current Subjective Patient in recliner pre tx, agrees to PT, has no complaints of pain, states she has had pain meds. Appearance Patient in restroom post tx, will call nurse when done. Mental Status Patient Orientation: Person, Place, Situation Transfers SCALE: Activities may be completed with or without assistive devices. 2-Kdiyxxsciw-hrezuzd completes the activity by him/herself with no assistance from a helper. 5-Set-up or Clean-up Assistance-helper sets up or cleans up; patient completes activity. [place] assists only prior to or following the activity. 4-Supervision or Touching Assistance-helper provides verbal cues and/or touching/steadying and/or contact guard assistance as patient completes activity. Assistance may be provided throughout the activity or intermittently. 3-Partial/Moderate Assistance-helper does LESS THAN HALF the effort. [place] lifts, holds or supports trunk or limbs, but provides less than half the effort. 2-Substantial/Maximal Assistance-helper does MORE THAN HALF the effort. [place] lifts or holds trunk or limbs and provides more than half the effort. 3-Ktticyjke-lddvjy does ALL the effort. Patient does none of the effort to complete the activity. Or, the assistance of 2 or more helpers is required for the patient to complete the activity. If activity was not attempted, code reason: 7-Patient Refused. 9-Not Applicable-not attempted and the patient did not perform the activity before the current illness, exacerbation or injury. 10-Not Attempted due to Environmental Limitations-(lack of equipment, weather restraints, etc.). 88-Not Attempted due to Medical Conditions or Safety Concerns. Sit to Stand (QC): 4 Chair/Ich-nu-Htzvz Xfer(QC): 4 SBA Gait Training Distance: 150'x2 Walk 10 feet (QC): 4 Walk 50 ft with 2 Turns(QC): 4 Walk 150 ft (QC): 4 Gait Persons Needed: 1 Gait Assistive Device: FWW SBA, very slow ambulation, poor foot clearance bilaterally Exercises Standing: Hip Abduction, Hamstring curls, Heel/toe raises, Marching, Mini squats Standing Reps: 15 NuStep Minutes: 15 NuStep Workload: 4 (LLE not used due to hip pain) Treatments transfers, ambulation, functional strengthening Assessment Current Status: Fair Progress Patient performs all movements very slowly, needs frequent rest breaks. PT Sliver Cutter Goals Sliver Cutter Goals PT Shelter Goals Time Frame: Nov 10, 2021 Roll Left & Right (QC): 6 Sit to Lying (QC): 6 Lying-Sitting on Side/Bed(QC): 6 Sit to Stand (QC): 6 Chair/Jgh-br-Qmvij Xfer(QC): 6 Toilet Transfer (QC): 6 Car Transfer (QC): 6 Does the Patient Walk: Yes Walk 10 feet (QC): 6 Walk 50ft with 2 Turns (QC): 6 Walk 150 ft (QC): 6 Walking 10ft on Uneven Surface: 6 1 Step (curb) (QC): 4 4 Steps (QC): 4 12 Steps (QC): 4 Picking up an Object (QC): 6 Does the Pt use WC or Scooter?: No Wheel 50 feet with 2 turns (QC: 9 Type: N/A Wheel 150 feet: 9 Type: N/A PT Plan Problem List Problem List: Activity Tolerance, Functional Strength, Safety, Balance, Gait, Transfer, Bed Mobility, ROM Treatment/Plan Treatment Plan: Continue Plan of Care Treatment Plan: Bed Mobility, Concurrent Therapy, Education, Functional Activity Omari, Functional Strength, Group Therapy, Gait, Safety, Therapeutic Exercise, Transfers Treatment Duration: Nov 10, 2021 Frequency: At least 5 of 7 days/Wk (IRF) Estimated Hrs Per Day: 1.5 hours per day Patient and/or Family Agrees t: Yes Safety Risks/Education Patient Education: Gait Training, Transfer Techniques, Correct Positioning, Safety Issues Teaching Recipient: Patient Teaching Methods: Demonstration, Discussion Response to Teaching: Reinforcement Needed Time/GCodes Time In: 0945 Time Out: 1115 Total Billed Treatment Time: 90 Total Billed Treatment 1 visit EX 60' FA 30' DIAMANTE CANALES PT Oct 15, 2021 11:04
[2021-10-15 20:08] VITALS: BP 130/71
[2021-10-16] MEDS: VANCOMYCIN 125 MG CAPSULE PO SCH ×4 (06:08→23:46)
[2021-10-16] MEDS: LEVOTHYROXINE 88 MCG (LEVOTHORID) TAB PO SCH (06:08)
[2021-10-16] MEDS: FUROSEMIDE 20 MG (LASIX) TAB PO SCH ×2 (06:08→17:29)
[2021-10-16] MEDS: KCL 20 MEQ TAB (K-DUR) PO SCH (06:08)
[2021-10-16 07:01] VITALS: BP 184/70
[2021-10-16] MEDS: LOPERAMIDE 2 MG (IMODIUM) TABLET PO SCH (07:30)
[2021-10-16] MEDS: PANTOPRAZOLE 40 MG (PROTONIX) TAB PO SCH (07:30)
[2021-10-16] MEDS: LACTOBACILLUS ACIDOPHILUS (PROBIOTIC) CAPSULE PO SCH ×3 (07:30→17:29)
[2021-10-16] MEDS: AREDS PO SCH ×2 (07:31→22:11)
[2021-10-16] MEDS: SYSTANE EYE DROPS OU SCH ×2 (07:32→22:11)
[2021-10-16] MEDS: ENOXAPARIN 40 MG/0.4 ML (LOVENOX) SYR SC SCH (07:32)
[2021-10-16] MEDS: SENNA W/DOCUSATE (SENOKOT S) TABLET PO SCH ×2 (07:33→21:00)
[2021-10-16] MEDS: polyethylene glycoL POWDER 17 GM (MIRALAX) PACK PO SCH ×2 (07:33→21:00)
[2021-10-16] MEDS: DOCUSATE SODIUM 100 MG (COLACE) CAP PO SCH ×2 (07:33→21:00)
--- NOTE | 2021-10-16 09:24 | Occupational Ther Daily Note ---
OT Current Status-Daily Note Subjective Pt seated in recliner upon OT arrival, agreeable to tx. Pt adamant about sleeping in recliner now vs. bed, saying she will refuse BLE bed exercises. Pt appears to be apprehensive about returning home, but does not want any home health services or changes to home layout to fit medical needs. Mental Status/Objective Patient Orientation: Person, Place, Situation ADL-Treatment Therapy Code Descriptions/Definitions Functional [place] Measure: 0=Not Assessed/NA 4=Minimal Assistance 1=Total Assistance 5=Supervision or Setup 2=Maximal Assistance 6=Modified [place] 3=Moderate Assistance 7=Complete IndependenceSCALE: Activities may be completed with or without assistive devices. 4-Dgjvohrzbe-bmcujke completes the activity by him/herself with no assistance from a helper. 5-Set-up or Clean-up Assistance-helper sets up or cleans up; patient completes activity. [place] assists only prior to or following the activity. 4-Supervision or Touching Assistance-helper provides verbal cues and/or touching/steadying and/or contact guard assistance as patient completes activity. Assistance may be provided throughout the activity or intermittently. 3-Partial/Moderate Assistance-helper does LESS THAN HALF the effort. [place] lifts, holds or supports trunk or limbs, but provides less than half the effort. 2-Substantial/Maximal Assistance-helper does MORE THAN HALF the effort. [place] lifts or holds trunk or limbs and provides more than half the effort. 7-Ynmqfolvu-mgwxpv does ALL the effort. Patient does none of the effort to complete the activity. Or, the assistance of 2 or more helpers is required for the patient to complete the activity. If activity was not attempted, code reason: 7-Patient Refused. 9-Not Applicable-not attempted and the patient did not perform the activity before the current illness, exacerbation or injury. 10-Not Attempted due to Environmental Limitations-(lack of equipment, weather restraints, etc.). 88-Not Attempted due to Medical Conditions or Safety Concerns. Oral Hygiene (QC): 4 (SBA for standing balance) Lower Body Dressing (QC): 3 (Min A to thread BLE through pants, CGA for standing balance during pant hike) Toileting Hygiene (QC): 4 (CGA for standing balance while wiping buttocks) Other Treatment Pt is apprehensive about returning home and does not want to receive home health services/outpatient services, so OT provided education about purpose and benefits of skilled therapy services and home health services. Pt verbalized understanding, but did not appear to be in agreement. She then transferred into the bathroom to complete toileting, LBD, and oral care/grooming tasks. Pt performed all functional transfers with FWW, SBA, and appears to be moving quicker today. Pt was borderline combative during LBD, saying she does not use AE during her normal routine and she would be able to complete ADLs IND at home. When clinician asked pt to explain routine to simulate in therapy, pt was not able to explain it. After completing self-care tasks, pt walked to w/c and was pushed to therapy gym. She completed 10min on the arm bike (35 brar resistance), 5min sitting and 5min standing, SBA, to increase overall activity tolerance and endurance. She then participated in a simulated LBD task, leaning forward to place 8 rings around her feet, to increase flexibility needed to thread pants during LBD. Pt explained that leaning forward to touch her toes took increased effort, but was unable to explain/locate reason for increased effort. During this activity, pt discovered using one foot to prop the other foot up made task easier, so she used this technique to successfully don pair of shorts over pants. Pt stood at table to complete half of nuts and bolts activity, side stepping left and right to obtain nuts/bolts and coming back to center to place nuts/bolts back on board. Pt was pushed back to room and left in w/c, call light left in reach, and all other needs met. Education OT Patient Education: Correct positioning, Energy conservation, Exercise program, Modified ADL techniques, Progress toward Goal/Update tx plan, Purpose of tx/functional activities, Rehab process, Transfer techniques, Use of adapted equipment Teaching Recipient: Patient Teaching Methods: Discussion Response to Teaching: Verbalize Understanding OT Short Term Goals Short Term Goals Time Frame: Oct 17, 2021 Toileting hygiene: 4 Shower/bathe self: 4 Lower body dressin OT Customer Service Receptionist Goals [facility] Goals Time Frame: Oct 26, 2021 Eating (QC): 6 Oral Hygiene (QC): 6 Toileting Hygiene (QC): 6 Shower/Bathe Self (QC): 6 Upper Body Dressing (QC): 6 Lower Body Dressing (QC): 6 On/Off Footwear (QC): 6 Additional Goals: 1-Demonstrate ADL Tasks, 2-Verbalize Understanding, 3- ImproveStrength/Omari 1=Demonstrate adherence to instructed precautions during ADL tasks. 2=Patient will verbalize/demonstrate understanding of assistive devices/mod ifications for ADL. 3=Patient will improve strength/tolerance for activity to enable patient to perform ADL's. OT Education/Plan Problem List/Assessment Assessment: Decreased Activ Tolerance, Decreased UE Strength, Impaired Funct Balance, Impaired I ADL's, Impaired Self-Care Skills Discharge Recommendations Plan/Recommendations: Continue POC Treatment Plan/Plan of Care Patient would benefit from OT for education, treatment and training to promote independence in ADL's, mobility, safety and/or upper extremity function for ADL's. Plan of Care: ADL Retraining, Functional Mobility, Group Exercise/Act as Ind, UE Funct Exercise/Act Treatment Duration: Oct 26, 2021 Frequency: At least 5 of 7 days/Wk (IRF) Estimated Hrs Per Day: 1.5 hours per day Rehab Potential: Good Time/GCodes Start Time: 07:45 Stop Time: 09:15 Total Time Billed (hr/min): 90 Billed Treatment Time 1, ADL 3 (45'), Ex (10'), FA 2 (35') JEWELS MCCORMICK OT Oct 16, 2021 09:24
[2021-10-16 09:27] VITALS: BP 122/60
[2021-10-16] MEDS: CHOLESTYRAMINE 4 GM (QUESTRAN LITE, PREVALITE) PKT PO SCH ×2 (09:27→18:29)
--- NOTE | 2021-10-16 10:48 | Physical Therapy Daily Note ---
PT Daily Note-Current Subjective Patient in recliner pre tx, agrees to PT, has no complaints of pain. Patient states she doesn't want to do anything laying down because she will never be laying down at home. Appearance Patient in recliner post tx with nurse call, phone, tray, all needs met. Mental Status Patient Orientation: Person, Place, Situation Transfers SCALE: Activities may be completed with or without assistive devices. 9-Nhmqntyvzn-scirngj completes the activity by him/herself with no assistance from a helper. 5-Set-up or Clean-up Assistance-helper sets up or cleans up; patient completes activity. [place] assists only prior to or following the activity. 4-Supervision or Touching Assistance-helper provides verbal cues and/or touching/steadying and/or contact guard assistance as patient completes activity. Assistance may be provided throughout the activity or intermittently. 3-Partial/Moderate Assistance-helper does LESS THAN HALF the effort. [place] lifts, holds or supports trunk or limbs, but provides less than half the effort. 2-Substantial/Maximal Assistance-helper does MORE THAN HALF the effort. [place] lifts or holds trunk or limbs and provides more than half the effort. 6-Esbcuiery-gdevnj does ALL the effort. Patient does none of the effort to complete the activity. Or, the assistance of 2 or more helpers is required for the patient to complete the activity. If activity was not attempted, code reason: 7-Patient Refused. 9-Not Applicable-not attempted and the patient did not perform the activity before the current illness, exacerbation or injury. 10-Not Attempted due to Environmental Limitations-(lack of equipment, weather restraints, etc.). 88-Not Attempted due to Medical Conditions or Safety Concerns. Sit to Stand (QC): 4 Chair/Qox-jq-Crovi Xfer(QC): 4 Gait Training Distance: 150'x2 Walk 10 feet (QC): 4 Walk 50 ft with 2 Turns(QC): 4 Walk 150 ft (QC): 4 Gait Persons Needed: 1 Gait Assistive Device: FWW very slow ambulation, poor foot clearance, slumped posture Exercises Seated Therapy Exercises: Hip abd/add (with ball and RTB) Standing: Hip Abduction, Hamstring curls, Heel/toe raises, Marching, Mini squats Standing Reps: 15 LAQ alternating for 5 min, sit to stands from slightly elevated therapy table 3 sets of 10 NuStep Minutes: 15 NuStep Workload: 4 (LLE not used due to hip pain) Treatments transfers, ambulation, LE strengthening Assessment Current Status: Fair Progress slightly faster ambulation but still very slow, patient needs frequent rest breaks due to fatigue PT Financial Accounting Analyst Goals Skilled Nursing Goals PT Financial Accounting Analyst Goals Time Frame: Nov 10, 2021 Roll Left & Right (QC): 6 Sit to Lying (QC): 6 Lying-Sitting on Side/Bed(QC): 6 Sit to Stand (QC): 6 Chair/Pet-ye-Ldfvh Xfer(QC): 6 Toilet Transfer (QC): 6 Car Transfer (QC): 6 Does the Patient Walk: Yes Walk 10 feet (QC): 6 Walk 50ft with 2 Turns (QC): 6 Walk 150 ft (QC): 6 Walking 10ft on Uneven Surface: 6 1 Step (curb) (QC): 4 4 Steps (QC): 4 12 Steps (QC): 4 Picking up an Object (QC): 6 Does the Pt use WC or Scooter?: No Wheel 50 feet with 2 turns (QC: 9 Type: N/A Wheel 150 feet: 9 Type: N/A PT Plan Problem List Problem List: Activity Tolerance, Functional Strength, Safety, Balance, Gait, Transfer, Bed Mobility, ROM Treatment/Plan Treatment Plan: Continue Plan of Care Treatment Plan: Bed Mobility, Concurrent Therapy, Education, Functional Acti vity Omari, Functional Strength, Group Therapy, Gait, Safety, Therapeutic Exercise, Transfers Treatment Duration: Nov 10, 2021 Frequency: At least 5 of 7 days/Wk (IRF) Estimated Hrs Per Day: 1.5 hours per day Patient and/or Family Agrees t: Yes Safety Risks/Education Patient Education: Gait Training, Transfer Techniques, Correct Positioning, Safety Issues Teaching Recipient: Patient Teaching Methods: Demonstration, Discussion Response to Teaching: Reinforcement Needed Time/GCodes Time In: 15 Time Out: 1045 Total Billed Treatment Time: 90 Total Billed Treatment 1 visit FA 30' EX 60' DIAMANTE CANALES PT Oct 16, 2021 10:47
--- NOTE | 2021-10-16 15:22 | Progress Note ---
FAWAD WYMAN 10/16/21 1522: Progress Note CC: debility HPI:Lesly is an 85 yo female who was admitted for cellulitis of LE on 10/06. Pt was started on ceftriaxone, which was switched to Vancomycin after cultures obtained. Pt was also started on lasix, which she normally takes as needed for LE swelling. Pt lost her on September 03, which contributed to her debility. Pt stated that she was using all her energy to care for her and was neglecting herself. Eventually was unable to walk due to the edema in her legs. Pt had unremarkable hospital course with improvement of her LE cellulitis and edema. She completed some PT on the med/surg floor and an inpatient rehab eval was done. She was transferred to inpt rehab floor on 10/09 were she continued to receive PT and OT. Today she believes that she has been making progress towards her previous normal but she is unsure that she is ready to go back home since she does live by herself. Pt does admit she relies on her episcopal for help at home as she does not have family nearby. PMH HTN Hypothyroidism Hx of DVT Meds vancomycin 125mg Q6H PO, acidophilus capsule 4mg BID, lovenox 40mg QD, loperamide 2mg QD, protonix 40mg QD, K dur 20mEQ QD, levothyroxine 88mcg QD, lasix 20mg BID, lortab 5mg Q4HPRN, xanax 0.25mg Q8H PRN Allergies NKDA SH Denies ETOH, Tobacco or drug use. for 64 years, recently lost her who was on hospice. 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 FH No significant family hx ROS: gen: no fever, chills heent: no vision changes, eye pain cardiac: no CP, palpitations lungs: no SOB, cough GI: no abdominal pain, N/V : no dysuria, hematuria MSK: pedal edema present, no joint pains skin: erythema of b/L, warm neuro: no changes in speech, confusion PE gen: WD/WN elderly female in NAD heent: PERRL/EOMI cardiac: RRR, no murmurs lungs: CTAB, normal rate GI: soft, not tender LE: B/L improving edema and erythema, she is having some flaking of skin neuro: A&Ox3, no changes in speech Labs WBC: 12.5(10/10), 8.9 (10/15) Hgb: 10.3(10/10), 8.3 (10/15) RDW: 20.3(10/10) 19.5 (10/15) Assessment and Plan: Debility secondary to cellulitis and peripheral edema -has finished vancomycin IV -continue lasix 20mg -continue lovenox -continue wrapping legs with JEAN-PAUL bandages and applying barrier cream -continue PT/OT -Lortab 5mg q4 prn pain C.diff -she was having frequent diarrhea -c.diff toxin and antigen came back positive -currently taking vancomycin PO -diarrhea has been improving, continue to monitor Hypothyroidism -continue levothyroxine Anemia -Hgb of 8.3 on 10/15 w/ RDW of 19.5 -continue to monitor Hypokalemia -Currently 4.1 on 20meq of KCl daily -continue to monitor since she is on lasix BID She does not currently believe that she can go home at the current moment since she does live by herself, discharge to home hopefully next week. Social work has discussed with her about home health. JANICE MUIR DO 10/16/212100: Supervisory-Addendum Brief Verification & Attestation Participated in pt care: history, MDM, physical Personally performed: exam, history, MDM, supervision of care Care discussed with: Medical Student Procedures: n/a Results interpretation: Verified all documentation Verification and Attestation of Medical Student E/M Service A medical student performed and documented this service in my presence. I review ed and verified all information documented by the medical student and made modifications to such information, when appropriate. I personally performed the physical exam and medical decision making. Janice Muir, Oct 16, 2021,21:01 FAWAD WYMAN Oct 16, 2021 15:22 JANICE MUIR DO Oct 16, 2021 21:01
[2021-10-16 20:00] VITALS: BP 152/75
--- NOTE | 2021-10-16 20:34 | PM&R Progress Note ---
Subjective HPI/CC On Admission Date Seen by Provider: Oct 16, 2021 Time Seen by Provider: 10:00 Pt is an 85 y/o female who was admitted to the hospital with severe edema and cellulitis - she was admitted for treatment of the infection, and was found to be profoundly weak with need for IRF Subjective/Events-last exam 10/16/2021: Doing well Gaining strength No pain reported Loose stools improved 10/15/2021: Patient feels better Diarrhea less intense Lower extremity edema improved Vancomycin completed 10/14/2021: Patient doing well Diarrhea improved Vancomycin p.o. and Questran helping No other concerns Brian catheter discontinued 10/13/2021: Patient sleeping well Overall improving every day Gaining strength Nurses have no concerns 10/12/2021: Patient doing well No concerns Antibiotic tolerated Feels like she is getting stronger 10/11/2021: Doing better Lower extremity edema much improved Brian catheter still in place Antibiotics maintained 10/10/2021: Doing well Improved strength already Patient appears to be very debilitated and self neglected Vanc still maintained Brian cath in place for another few days due to incontinence Review of Systems General: Fatigue, Malaise Cardiovascular: Edema Gastrointestinal: Diarrhea Objective Exam Vital Signs Vital Signs Date Time Temp Pulse Resp B/P (MAP) Pulse Ox O2 Delivery O2 Flow Rate FiO2 10/16/21 09:27 94 122/60 (80) 10/16/21 08:54 Room Air 10/16/21 07:01 36.9 18 95 Capillary Refill : General Appearance: No Apparent Distress, WD/WN, Chronically ill HEENT: PERRL/EOMI, Normal ENT Inspection, Pharynx Normal Neck: Full Range of Motion, Normal Inspection, Non Tender, Supple, Carotid Bruit Respiratory: Chest Non Tender, Lungs Clear, Normal Breath Sounds, No Accessory Muscle Use, No Respiratory Distress Cardiovascular: Regular Rate, Rhythm, No Gallop, No JVD, No Murmur, Normal Peripheral Pulses Gastrointestinal: Normal Bowel Sounds, No Organomegaly, No Pulsatile Mass, Non Tender, Soft Rectal: Deferred Back: Normal Inspection, No CVA Tenderness, No Vertebral Tenderness Extremity: Normal Capillary Refill, Normal Inspection, Normal Range of Motion, Non Tender, No Calf Tenderness, Pedal Edema, Swelling Neurologic/Psychiatric: Alert, Oriented x3, Normal Mood/Affect, museum exhibit designer II-XII Norm as Tested, Abnormal Gait, Depressed Affect, Motor Weakness (generalized) Skin: Normal Color, Warm/Dry, Rash (legs) Lymphatic: No Adenopathy Results/Procedures Lab Patient resulted labs reviewed. FIM Transfers Therapy Code Descriptions/Definitions Functional [place] Measure: 0=Not Assessed/NA 4=Minimal Assistance 1=Total Assistance 5=Supervision or Setup 2=Maximal Assistance 6=Modified [place] 3=Moderate Assistance 7=Complete IndependenceSCALE: Activities may be completed with or without assistive devices. 5-Yegxiroesv-xyrjovv completes the activity by him/herself with no assistance from a helper. 5-Set-up or Clean-up Assistance-helper sets up or cleans up; patient completes activity. [place] assists only prior to or following the activity. 4-Supervision or Touching Assistance-helper provides verbal cues and/or touching/steadying and/or contact guard assistance as patient completes activity. Assistance may be provided throughout the activity or intermittently. 3-Partial/Moderate Assistance-helper does LESS THAN HALF the effort. [place] lifts, holds or supports trunk or limbs, but provides less than half the effort. 2-Substantial/Maximal Assistance-helper does MORE THAN HALF the effort. [place] lifts or holds trunk or limbs and provides more than half the effort. 0-Ezlajsitl-jkhaiy does ALL the effort. Patient does none of the effort to complete the activity. Or, the assistance of 2 or more helpers is required for the patient to complete the activity. If activity was not attempted, code reason: 7-Patient Refused. 9-Not Applicable-not attempted and the patient did not perform the activity before the current illness, exacerbation or injury. 10-Not Attempted due to Environmental Limitations-(lack of equipment, weather restraints, etc.). 88-Not Attempted due to Medical Conditions or Safety Concerns. Roll Left to Right (QC): 4 Sit to Lying (QC): 4 Sit to Stand (QC): 4 Chair/Pqn-zi-Dptta Xfer(QC): 4 Car Transfer (QC): 3 Gait Training Does the Patient Walk?: Yes Distance: 150'x2 Walk 10 feet (QC): 4 Walk 50 ft with 2 Turns(QC): 4 Walk 150 ft (QC): 4 Walking 10ft/uneven surface-QC: 3 Gait Persons Needed: 1 Gait Assistive Device: FWW Wheelchair Training Does the Pt Use a Wheelchair?: Yes Wheel 50 ft with 2 turns (QC): 4 Wheel 150 ft (QC): 9 Type of Wheelchair: Manual Stair Training #of Steps: 2 1 Step (curb) (QC): 3 4 Steps (QC): 88 12 Steps (QC): 88 Balance Picking up an Object (QC): 88 ADL-Treatment Eating (QC): 6 (Per pt report) Oral Hygiene (QC): 4 (SBA for standing balance) Shower/Bathe Self (QC): 3 (Min A to wash/dry buttocks) Upper Body Dressing (QC): 5 Lower Body Dressing (QC): 3 (Min A to thread BLE through pants, CGA for standing balance during pant hike) On/Off Footwear (QC): 2 (Max A to don both gripper socks) Toileting Hygiene (QC): 4 (CGA for standing balance while wiping buttocks) Assessment/Plan Assessment and Plan Assess & Plan/Chief Complaint Assessment: Debility Cellulitis lower legs on Vanc Severe lower extremity edema Hypothyroidisim Anemia Hypoalbuminemia Elevated DDimer negative Dopplers Brian cath DC C. difficile colitis Plan: PT OT protocol Brian cath DC in 2 days Home meds Monitor closely 10/10/2021: Vanc PT OT 10/11/2021: Antibiotics Lower extremity edema management 10/12/2021: Monitor closely Complete antibiotics Wrap legs 10/13/2021: Complete antibiotics Supportive care 10/14/2021: C. difficile treatment Supportive care 10/15/2021: Continue Zofran and vancomycin p.o. 10/16/2021: Improved stools (1) Immobility Status: Acute (2) Cellulitis Status: Acute (3) Lower extremity edema Status: Acute (4) Hypothyroidism Status: Acute MOLLY MUIR DO Oct 16, 2021 20:34
--- NOTE | 2021-10-17 06:04 | PM&R Progress Note ---
Subjective HPI/CC On Admission Date Seen by Provider: Oct 17, 2021 Time Seen by Provider: 09:00 Pt is an 85 y/o female who was admitted to the hospital with severe edema and cellulitis - she was admitted for treatment of the infection, and was found to be profoundly weak with need for IRF Subjective/Events-last exam 10/17/2021: Patient doing well Edema improved No falls Pain improved Changing Questran to BID due to no BM and don't want to cause constipation 10/16/2021: Doing well Gaining strength No pain reported Loose stools improved 10/15/2021: Patient feels better Diarrhea less intense Lower extremity edema improved Vancomycin completed 10/14/2021: Patient doing well Diarrhea improved Vancomycin p.o. and Questran helping No other concerns Brian catheter discontinued 10/13/2021: Patient sleeping well Overall improving every day Gaining strength Nurses have no concerns 10/12/2021: Patient doing well No concerns Antibiotic tolerated Feels like she is getting stronger 10/11/2021: Doing better Lower extremity edema much improved Brian catheter still in place Antibiotics maintained 10/10/2021: Doing well Improved strength already Patient appears to be very debilitated and self neglected Vanc still maintained Brian cath in place for another few days due to incontinence Review of Systems General: Fatigue, Malaise Objective Exam Vital Signs Vital Signs Date Time Temp Pulse Resp B/P (MAP) Pulse Ox O2 Delivery O2 Flow Rate FiO2 10/17/21 09:30 Room Air 10/17/21 07:13 36.9 75 16 181/78 (112) 95 Capillary Refill : General Appearance: No Apparent Distress, WD/WN, Chronically ill HEENT: PERRL/EOMI, Normal ENT Inspection, Pharynx Normal Neck: Full Range of Motion, Normal Inspection, Non Tender, Supple, Carotid Bruit Respiratory: Chest Non Tender, Lungs Clear, Normal Breath Sounds, No Accessory Muscle Use, No Respiratory Distress Cardiovascular: Regular Rate, Rhythm, No Gallop, No JVD, No Murmur, Normal Peripheral Pulses Gastrointestinal: Normal Bowel Sounds, No Organomegaly, No Pulsatile Mass, Non Tender, Soft Rectal: Deferred Back: Normal Inspection, No CVA Tenderness, No Vertebral Tenderness Extremity: Normal Capillary Refill, Normal Inspection, Normal Range of Motion, Non Tender, No Calf Tenderness, Pedal Edema, Swelling Neurologic/Psychiatric: Alert, Oriented x3, Normal Mood/Affect, 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 FIM Transfers Therapy Code Descriptions/Definitions Functional [place] Measure: 0=Not Assessed/NA 4=Minimal Assistance 1=Total Assistance 5=Supervision or Setup 2=Maximal Assistance 6=Modified [place] 3=Moderate Assistance 7=Complete IndependenceSCALE: Activities may be completed with or without assistive devices. 0-Xhszqioquc-kdvicot completes the activity by him/herself with no assistance from a helper. 5-Set-up or Clean-up Assistance-helper sets up or cleans up; patient completes activity. [place] assists only prior to or following the activity. 4-Supervision or Touching Assistance-helper provides verbal cues and/or touching/steadying and/or contact guard assistance as patient completes activity. Assistance may be provided throughout the activity or intermittently. 3-Partial/Moderate Assistance-helper does LESS THAN HALF the effort. [place] lifts, holds or supports trunk or limbs, but provides less than half the effort. 2-Substantial/Maximal Assistance-helper does MORE THAN HALF the effort. [place] lifts or holds trunk or limbs and provides more than half the effort. 5-Qfjnnrlgk-axltpg does ALL the effort. Patient does none of the effort to complete the activity. Or, the assistance of 2 or more helpers is required for the patient to complete the activity. If activity was not attempted, code reason: 7-Patient Refused. 9-Not Applicable-not attempted and the patient did not perform the activity before the current illness, exacerbation or injury. 10-Not Attempted due to Environmental Limitations-(lack of equipment, weather restraints, etc.). 88-Not Attempted due to Medical Conditions or Safety Concerns. Roll Left to Right (QC): 4 Sit to Lying (QC): 4 Sit to Stand (QC): 4 Chair/Rnl-zl-Cztpl Xfer(QC): 4 Car Transfer (QC): 3 Gait Training Does the Patient Walk?: Yes Distance: 150'x2 Walk 10 feet (QC): 4 Walk 50 ft with 2 Turns(QC): 4 Walk 150 ft (QC): 4 Walking 10ft/uneven surface-QC: 3 Gait Persons Needed: 1 Gait Assistive Device: FWW Wheelchair Training Does the Pt Use a Wheelchair?: Yes Wheel 50 ft with 2 turns (QC): 4 Wheel 150 ft (QC): 9 Type of Wheelchair: Manual Stair Training #of Steps: 2 1 Step (curb) (QC): 3 4 Steps (QC): 88 12 Steps (QC): 88 Balance Picking up an Object (QC): 88 ADL-Treatment Eating (QC): 6 (Per pt report) Oral Hygiene (QC): 4 (SBA for standing balance) Shower/Bathe Self (QC): 3 (Min A to wash/dry buttocks) Upper Body Dressing (QC): 5 Lower Body Dressing (QC): 3 (Min A to thread BLE through pants, CGA for standing balance during pant hike) On/Off Footwear (QC): 2 (Max A to don both gripper socks) Toileting Hygiene (QC): 4 (CGA for standing balance while wiping buttocks) Assessment/Plan Assessment and Plan Assess & Plan/Chief Complaint Assessment: Debility Cellulitis lower legs on Vanc Severe lower extremity edema Hypothyroidisim Anemia Hypoalbuminemia Elevated DDimer negative Dopplers Brian cath DC C. difficile colitis Plan: PT OT protocol Brian cath DC in 2 days Home meds Monitor closely 10/10/2021: Vanc PT OT 10/11/2021: Antibiotics Lower extremity edema management 10/12/2021: Monitor closely Complete antibiotics Wrap legs 10/13/2021: Complete antibiotics Supportive care 10/14/2021: C. difficile treatment Supportive care 10/15/2021: Continue Zofran and vancomycin p.o. 10/16/2021: Improved stools 10/17/2021: Questran change to prn BID (1) Immobility Status: Acute (2) Cellulitis Status: Acute (3) Lower extremity edema Status: Acute (4) Hypothyroidism Status: Acute MOLLY MUIR DO Oct 17, 2021 06:04
[2021-10-17] MEDS: LEVOTHYROXINE 88 MCG (LEVOTHORID) TAB PO SCH (06:06)
[2021-10-17] MEDS: KCL 20 MEQ TAB (K-DUR) PO SCH (06:06)
[2021-10-17] MEDS: VANCOMYCIN 125 MG CAPSULE PO SCH ×3 (06:07→17:36)
[2021-10-17] MEDS: FUROSEMIDE 20 MG (LASIX) TAB PO SCH ×2 (06:07→17:36)
[2021-10-17 07:13] VITALS: BP 181/78
--- NOTE | 2021-10-17 08:33 | Occupational Ther Daily Note ---
OT Current Status-Daily Note Subjective Pt in recliner upon OT arrival, agreeable to tx. Pt reports BLE and L shoulder pain today but did not give it a numerical rating. Mental Status/Objective Patient Orientation: Person, Place, Situation ADL-Treatment Therapy Code Descriptions/Definitions Functional [place] Measure: 0=Not Assessed/NA 4=Minimal Assistance 1=Total Assistance 5=Supervision or Setup 2=Maximal Assistance 6=Modified [place] 3=Moderate Assistance 7=Complete IndependenceSCALE: Activities may be completed with or without assistive devices. 6-Hplsgydpmd-kpoevsy completes the activity by him/herself with no assistance from a helper. 5-Set-up or Clean-up Assistance-helper sets up or cleans up; patient completes activity. [place] assists only prior to or following the activity. 4-Supervision or Touching Assistance-helper provides verbal cues and/or touching/steadying and/or contact guard assistance as patient completes activity. Assistance may be provided throughout the activity or intermittently. 3-Partial/Moderate Assistance-helper does LESS THAN HALF the effort. [place] lifts, holds or supports trunk or limbs, but provides less than half the effort. 2-Substantial/Maximal Assistance-helper does MORE THAN HALF the effort. [place] lifts or holds trunk or limbs and provides more than half the effort. 4-Jvmtovyay-tnbiuk does ALL the effort. Patient does none of the effort to complete the activity. Or, the assistance of 2 or more helpers is required for the patient to complete the activity. If activity was not attempted, code reason: 7-Patient Refused. 9-Not Applicable-not attempted and the patient did not perform the activity before the current illness, exacerbation or injury. 10-Not Attempted due to Environmental Limitations-(lack of equipment, weather restraints, etc.). 88-Not Attempted due to Medical Conditions or Safety Concerns. Oral Hygiene (QC): 4 (CGA-SBA for standing balance) Shower/Bathe Self (QC): 3 (min A with buttocks, seated) Upper Body Dressing (QC): 5 Lower Body Dressing (QC): 3 (Mod A to thread BLE through brief) On/Off Footwear: 2 (Max A to thread both feet to heels. Pt able to hike socks up with increased time) Toileting Hygiene (QC): 3 (Min A to wipe buttocks after BM, Min A for balance during pant hike) Other Treatment Pt required v/c's for foot placement and Min A to stand from recliner. She walked to bathroom, [facility], to complete toileting, showering, dressing, and oral care/grooming tasks. Pt appears to be moving slower again today, requiring increased time to complete tasks. Pt still requires skilled instruction to use moccasin sewer during LBD, but she is becoming more efficient with moccasin sewer during pant hike and doffing LBD/gripper socks. She is still not able to use sock aide at this time d/t BLE pain, edema, and skin integrity. After completing self-care tasks in the bathroom, pt returned to recliner, [facility]. Post tx, pt left in recliner with call light in reach and all needs met. Education OT Patient Education: Correct positioning, Energy conservation, Exercise program, Modified ADL techniques, Progress toward Goal/Update tx plan, Purpose of tx/functional activities, Rehab process, Use of adapted equipment Teaching Recipient: Patient Teaching Methods: Demonstration, Discussion Response to Teaching: Verbalize Understanding, Return Demonstration OT Short Term Goals Short Term Goals Time Frame: Oct 17, 2021 Toileting hygiene: 4 Shower/bathe self: 4 Lower body dressin OT Custodial Goals Custodial Goals Time Frame: Oct 26, 2021 Eating (QC): 6 Oral Hygiene (QC): 6 Toileting Hygiene (QC): 6 Shower/Bathe Self (QC): 6 Upper Body Dressing (QC): 6 Lower Body Dressing (QC): 6 On/Off Footwear (QC): 6 Additional Goals: 1-Demonstrate ADL Tasks, 2-Verbalize Understanding, 3- ImproveStrength/Omari 1=Demonstrate adherence to instructed precautions during ADL tasks. 2=Patient will verbalize/demonstrate understanding of assistive devices/modifications for ADL. 3=Patient will improve strength/tolerance for activity to enable patient to perform ADL's. OT Education/Plan Problem List/Assessment Assessment: Decreased Activ Tolerance, Decreased UE Strength, Impaired Funct Balance, Impaired I ADL's, Impaired Self-Care Skills Discharge Recommendations Plan/Recommendations: Continue POC Therapy Discharge Recommendati: Post Acute OT (SNF) Treatment Plan/Plan of Care Patient would benefit from OT for education, treatment and training to promote independence in ADL's, mobility, safety and/or upper extremity function for ADL's. Plan of Care: ADL Retraining, Functional Mobility, Group Exercise/Act as Ind, UE Funct Exercise/Act Treatment Duration: Oct 26, 2021 Frequency: At least 5 of 7 days/Wk (IRF) Estimated Hrs Per Day: 1.5 hours per day Rehab Potential: Good Time/GCodes Start Time: 08:00 Stop Time: 09:00 Total Time Billed (hr/min): 60 Billed Treatment Time 1, ADL 4 (60') JEWELS MCCORMICK OT Oct 17, 2021 08:33
[2021-10-17] MEDS: ENOXAPARIN 40 MG/0.4 ML (LOVENOX) SYR SC SCH (09:04)
[2021-10-17] MEDS: LACTOBACILLUS ACIDOPHILUS (PROBIOTIC) CAPSULE PO SCH ×3 (09:04→17:36)
[2021-10-17] MEDS: AREDS PO SCH ×2 (09:04→20:33)
[2021-10-17] MEDS: CHOLESTYRAMINE 4 GM (QUESTRAN LITE, PREVALITE) PKT PO SCH (09:04)
[2021-10-17] MEDS: PANTOPRAZOLE 40 MG (PROTONIX) TAB PO SCH (09:04)
[2021-10-17] MEDS: SYSTANE EYE DROPS OU SCH ×2 (09:05→20:33)
[2021-10-17] MEDS: DOCUSATE SODIUM 100 MG (COLACE) CAP PO SCH ×2 (09:25→19:47)
[2021-10-17] MEDS ORDERED: CHOLESTYRAMINE 4 GM (QUESTRAN LITE, PREVALITE) PKT PO PRN (09:30)
--- NOTE | 2021-10-17 09:40 | Progress Note ---
Subjective Subjective Date Seen by Provider: Oct 16, 2021 Time Seen by Provider: 09:00 Patient resting comfortably in chair. Is concerned about the dry, flaky skin she is losing on her lower extremities. Tolerating oral vanc. Told staff to hold immodium as it can bind up toxin and let it sit in intestines. Patient is working with PT and OT, but thinks she is able to do most of her ADLs now, even though PT/OT does not feel this way. Patient's blood pressure has been running high in the AM. Review of Systems General: Fatigue, Malaise HEENT: No Head Aches, No Visual Changes Pulmonary: No Dyspnea; Cough Cardiovascular: Edema; No: Chest Pain, Palpitations Gastrointestinal: Diarrhea; No: Nausea, Vomiting Genitourinary: No Dysuria, No Frequency Musculoskeletal: leg pain Neurological: Weakness; No: Change in speech, Confusion All Other Systems Reviewed All Other Systems Reviewed: Yes Objective Exam Vital Signs Vital Signs Date Time Temp Pulse Resp B/P (MAP) Pulse Ox O2 Delivery O2 Flow Rate FiO2 10/17/21 07:13 36.9 75 16 181/78 (112) 95 Room Air 10/16/21 21:00 Room Air 10/16/21 20:00 37.1 75 18 152/75 (100) 94 Room Air General Appearance: No Apparent Distress, WD/WN HEENT: PERRL/EOMI Neck: Non Tender, Supple Respiratory: Chest Non Tender, Lungs Clear, Normal Breath Sounds, No Accessory Muscle Use, No Respiratory Distress Cardiovascular: Regular Rate, Rhythm, No Gallop, No JVD, No Murmur, Normal Peripheral Pulses Gastrointestinal: Normal Bowel Sounds, Non Tender, Soft Rectal: Deferred Extremity: Normal Capillary Refill, Non Tender, No Calf Tenderness, Pedal Edema, Swelling Neurologic/Psychiatric: Alert, Oriented x3, Abnormal Gait, Motor Weakness (generalized) Skin: Normal Color, Warm/Dry, Other (desquamation of skin on bilateral LE where significant swelling was. Edema is improving) Results Lab Microbiology 10/12/21 C. difficile DNA Amplification - Final, Complete Assessment/Plan Assessment/Plan Assessment and Plan Assessment Generalized weakness/fatigue C. Diff Colitis Cellulitits of LE, resolved Anemia Hypothyroidism Hypertension Plan Continue oral vancomycin, patient on day 06/24 PT/OT Continue Lasix 20 B.I.D for LE edema Continue Cholestyramine powder, lotion, and general wound care of LE Losartan 25 HS for elevated BP in AM Levothyroxine at home dose Lovenox for DVT prophylaxis Supervisory-Addendum Brief Verification & Attestation Participated in pt care: history, MDM, physical Personally performed: exam, history, MDM, supervision of care Care discussed with: Medical Student Procedures: n/a Results interpretation: Verified all documentation agree with student note as documented - pt was still receiving imodium, the medication was stopped. Pt's stools have improved. She is somewhat frustrated with staff, she does not want to go home with home health, but staff at the hospital thinks that she does need home health on scharge due to her weakness and need for monitoring at home on discharge. However, she admits that she is improving from a strength standpoint. ETTA WORKMAN Oct 17, 2021 09:40 AMBER PAULINO MD Oct 18, 2021 22:16
--- NOTE | 2021-10-17 11:03 | Physical Therapy Daily Note ---
PT Daily Note-Current Subjective Pt. agrees to Rx but is self limiting and begins to barter that she cannot do this or that and that she cannot go home for several days or weeks. This CULLED FRUIT PACKER encouraging pt to try all tasks offered to her and strengthening etc. By end of rx pt. seemed more confident that she had accomplished steps simulating her home situation, pt. c/o some pain in her hips emeli L. Pain Numeric Pain Scale: 5-Moderate Pain Location: Left Location Body Site: Hip Pain Description: Ache Mental Status Patient Orientation: Normal For Age Transfers SCALE: Activities may be completed with or without assistive devices. 2-Lodttayqex-lnpgcul completes the activity by him/herself with no assistance from a helper. 5-Set-up or Clean-up Assistance-helper sets up or cleans up; patient completes activity. [place] assists only prior to or following the activity. 4-Supervision or Touching Assistance-helper provides verbal cues and/or touching/steadying and/or contact guard assistance as patient completes activity. Assistance may be provided throughout the activity or intermittently. 3-Partial/Moderate Assistance-helper does LESS THAN HALF the effort. [place] lif ts, holds or supports trunk or limbs, but provides less than half the effort. 2-Substantial/Maximal Assistance-helper does MORE THAN HALF the effort. [place] lifts or holds trunk or limbs and provides more than half the effort. 1-Tsqbejvqe-emwcqf does ALL the effort. Patient does none of the effort to complete the activity. Or, the assistance of 2 or more helpers is required for the patient to complete the activity. If activity was not attempted, code reason: 7-Patient Refused. 9-Not Applicable-not attempted and the patient did not perform the activity before the current illness, exacerbation or injury. 10-Not Attempted due to Environmental Limitations-(lack of equipment, weather restraints, etc.). 88-Not Attempted due to Medical Conditions or Safety Concerns. Sit to Stand (QC): 4 Chair/Mqq-fr-Qmmqe Xfer(QC): 4 Toilet Transfer (QC): 4 pt, declines attempting sup to sit to sup stating she will never do this at home, as she sleeps in a recliner Gait Training Does the Patient Walk?: Yes Walk 10 feet (QC): 4 Walk 50 ft with 2 Turns(QC): 4 Walk 150 ft (QC): 4 Gait Persons Needed: 1 Gait Assistive Device: FWW 200ft, 150ft, 75ft x 4 FWW SBA slow, no LOB head down posture Stair Training Stair Training: Handrails/: 2 handrails #of Steps: 4 1 Step (curb) (QC): 4 4 Steps (QC): 4 12 Steps (QC): 88 Stairs: Pattern: Step to much emphasis on steps, pt sharing exact heights of steps as well as height and level of railings. Pt. fearful at first and declined to attmept 6 in step, then did accomplish fernando step at 4 in straddling this platform with her walker. Pt then taken to 4 in steps and accomplised these and then again to the 6 in step which she complete after the rails were adjusted where she could achieve better leverage Exercises Supine Ex: Bridging, Ankle pumps, Quad Set, Glut sets, Heel Slides, Scooting, Straight leg raise (assisted), Hip abd/add Supine Reps: 15 Seated Therapy Exercises: Ankle pumps, Sit to stand, Long arc quads, Hip flexion Seated Reps: 15 Treatments toileted x 2 during Rx, managing pants and cleaning SBA, LE ex, gait , TRFs, steps Assessment Current Status: Good Progress pt. appears fearful and anxious about PT and needs much encouragement to attempt some tasks PT Financial Secretary Goals Financial Secretary Goals PT Financial Secretary Goals Time Frame: Nov 10, 2021 Roll Left & Right (QC): 6 Sit to Lying (QC): 6 Lying-Sitting on Side/Bed(QC): 6 Sit to Stand (QC): 6 Chair/Gqr-wm-Ksjql Xfer(QC): 6 Toilet Transfer (QC): 6 Car Transfer (QC): 6 Does the Patient Walk: Yes Walk 10 feet (QC): 6 Walk 50ft with 2 Turns (QC): 6 Walk 150 ft (QC): 6 Walking 10ft on Uneven Surface: 6 1 Step (curb) (QC): 4 4 Steps (QC): 4 12 Steps (QC): 4 Picking up an Object (QC): 6 Does the Pt use WC or Scooter?: No Wheel 50 feet with 2 turns (QC: 9 Type: N/A Wheel 150 feet: 9 Type: N/A PT Plan Treatment/Plan Treatment Plan: Continue Plan of Care Treatment Plan: Bed Mobility, Concurrent Therapy, Education, Functional Activity Omari, Functional Strength, Group Therapy, Gait, Safety, Therapeutic Exercise, Transfers Treatment Duration: Nov 10, 2021 Frequency: At least 5 of 7 days/Wk (IRF) Estimated Hrs Per Day: 1.5 hours per day Patient and/or Family Agrees t: Yes Safety Risks/Education Patient Education: Gait Training, Transfer Techniques, Steps, Correct P ositioning, Disease Process, Safety Issues Teaching Recipient: Patient Teaching Methods: Demonstration, Discussion Response to Teaching: Verbalize Understanding, Return Demonstration, Reinfo rcement Needed Time/GCodes Time In: 930 Time Out: 1100 Total Billed Treatment Time: 90 Total Billed Treatment 1,GT30m,FA35m,EX25m CANDACE QUIJANO PTA Oct 17, 2021 11:03
[2021-10-17] MEDS: polyethylene glycoL POWDER 17 GM (MIRALAX) PACK PO SCH ×2 (11:57→19:48)
[2021-10-17] MEDS: SENNA W/DOCUSATE (SENOKOT S) TABLET PO SCH ×2 (11:57→19:48)
--- NOTE | 2021-10-17 14:16 | Occupational Ther Daily Note ---
OT Current Status-Daily Note Subjective Pt reclining in chair upon OT arrival, agreeable to tx. Mental Status/Objective Patient Orientation: Person, Place, Situation ADL-Treatment Therapy Code Descriptions/Definitions Functional [place] Measure: 0=Not Assessed/NA 4=Minimal Assistance 1=Total Assistance 5=Supervision or Setup 2=Maximal Assistance 6=Modified [place] 3=Moderate Assistance 7=Complete IndependenceSCALE: Activities may be completed with or without assistive devices. 1-Wrjuwxrddd-xkqsmlr completes the activity by him/herself with no assistance from a helper. 5-Set-up or Clean-up Assistance-helper sets up or cleans up; patient completes activity. [place] assists only prior to or following the activity. 4-Supervision or Touching Assistance-helper provides verbal cues and/or touching/steadying and/or contact guard assistance as patient completes activity. Assistance may be provided throughout the activity or intermittently. 3-Partial/Moderate Assistance-helper does LESS THAN HALF the effort. [place] lifts, holds or supports trunk or limbs, but provides less than half the effort. 2-Substantial/Maximal Assistance-helper does MORE THAN HALF the effort. [place] lifts or holds trunk or limbs and provides more than half the effort. 2-Kwjytritm-zzcyxf does ALL the effort. Patient does none of the effort to complete the activity. Or, the assistance of 2 or more helpers is required for the patient to complete the activity. If activity was not attempted, code reason: 7-Patient Refused. 9-Not Applicable-not attempted and the patient did not perform the activity bef ore the current illness, exacerbation or injury. 10-Not Attempted due to Environmental Limitations-(lack of equipment, weather r estraints, etc.). 88-Not Attempted due to Medical Conditions or Safety Concerns. Toileting Hygiene (QC): 3 (Min A to maneuver clothing ) Other Treatment Pt stood from recliner with CGA-Min A and walked to therapy gym, SBA. Pt still walked slowly, but she appears to be moving better than AM tx. She completed a total of 12mins on the arm bike (35 brar of resistance), 6min seated and 6min standing with SBA. Pt appeared to tolerate activity well with no c/o increasing pain. Pt pushed back to room in w/c d/t time constraints. Pt requested to use restroom when she got back to her room, CGA-Min A to stand from w/c and SPT to toilet. Post tx, pt left on toilet with instructions to pull red cord and nursing will assist pt to get off toilet, pt verbalized understanding. Education OT Patient Education: Correct positioning, Energy conservation, Exercise program, Modified ADL techniques, Progress toward Goal/Update tx plan, Purpose of tx/functional activities, Rehab process Teaching Recipient: Patient Teaching Methods: Discussion Response to Teaching: Verbalize Understanding OT Short Term Goals Short Term Goals Time Frame: Oct 17, 2021 Toileting hygiene: 4 Shower/bathe self: 4 Lower body dressin OT Fpc Goals Application Support Intern Goals Time Frame: Oct 26, 2021 Eating (QC): 6 Oral Hygiene (QC): 6 Toileting Hygiene (QC): 6 Shower/Bathe Self (QC): 6 Upper Body Dressing (QC): 6 Lower Body Dressing (QC): 6 On/Off Footwear (QC): 6 Additional Goals: 1-Demonstrate ADL Tasks, 2-Verbalize Understanding, 3- ImproveStrength/Omari 1=Demonstrate adherence to instructed precautions during ADL tasks. 2=Patient will verbalize/demonstrate understanding of assistive devices/modifications for ADL. 3=Patient will improve strength/tolerance for activity to enable patient to perform ADL's. OT Education/Plan Problem List/Assessment Assessment: Decreased Activ Tolerance, Decreased UE Strength, Impaired Funct Balance, Impaired I ADL's, Impaired Self-Care Skills Discharge Recommendations Plan/Recommendations: Continue POC Treatment Plan/Plan of Care Patient would benefit from OT for education, treatment and training to promote independence in ADL's, mobility, safety and/or upper extremity function for ADL's. Plan of Care: ADL Retraining, Functional Mobility, Group Exercise/Act as Ind, UE Funct Exercise/Act Treatment Duration: Oct 26, 2021 Frequency: At least 5 of 7 days/Wk (IRF) Estimated Hrs Per Day: 1.5 hours per day Rehab Potential: Good Time/GCodes Start Time: 13:00 Stop Time: 13:30 Total Time Billed (hr/min): 30 Billed Treatment Time 1, Ex (20'), FA (10') JEWELS MCCORMICK OT Oct 17, 2021 14:16
[2021-10-17 19:47] VITALS: BP 161/74
[2021-10-17] MEDS: LOSARTAN 25 MG (COZAAR) TAB PO SCH (20:33)
[2021-10-18] MEDS: VANCOMYCIN 125 MG CAPSULE PO SCH ×4 (00:30→18:05)
--- NOTE | 2021-10-18 05:45 | PM&R Progress Note ---
Subjective HPI/CC On Admission Date Seen by Provider: Oct 18, 2021 Pt is an 85 y/o female who was admitted to the hospital with severe edema and cellulitis - she was admitted for treatment of the infection, and was found to be profoundly weak with need for IRF Subjective/Events-last exam 10/18/2021: Doing better Dressed herself Needs to work on socks and shoes Labs and UA ordered by PCP which were normal 10/17/2021: Patient doing well Edema improved No falls Pain improved Changing Questran to BID due to no BM and don't want to cause constipation 10/16/2021: Doing well Gaining strength No pain reported Loose stools improved 10/15/2021: Patient feels better Diarrhea less intense Lower extremity edema improved Vancomycin completed 10/14/2021: Patient doing well Diarrhea improved Vancomycin p.o. and Questran helping No other concerns Brian catheter discontinued 10/13/2021: Patient sleeping well Overall improving every day Gaining strength Nurses have no concerns 10/12/2021: Patient doing well No concerns Antibiotic tolerated Feels like she is getting stronger 10/11/2021: Doing better Lower extremity edema much improved Brian catheter still in place Antibiotics maintained 10/10/2021: Doing well Improved strength already Patient appears to be very debilitated and self neglected Vanc still maintained Brian cath in place for another few days due to incontinence Review of Systems General: Fatigue, Malaise Cardiovascular: Edema Objective Exam Vital Signs Vital Signs Date Time Temp Pulse Resp B/P (MAP) Pulse Ox O2 Delivery O2 Flow Rate FiO2 10/18/21 09:00 Room Air 10/18/21 07:20 36.7 77 20 167/78 (107) 96 Capillary Refill : General Appearance: No Apparent Distress, WD/WN, Chronically ill HEENT: PERRL/EOMI, Normal ENT Inspection, Pharynx Normal Neck: Full Range of Motion, Normal Inspection, Non Tender, Supple, Carotid Bruit Respiratory: Chest Non Tender, Lungs Clear, Normal Breath Sounds, No Accessory Muscle Use, No Respiratory Distress Cardiovascular: Regular Rate, Rhythm, No Gallop, No JVD, No Murmur, Normal Peripheral Pulses Gastrointestinal: Normal Bowel Sounds, No Organomegaly, No Pulsatile Mass, Non Tender, Soft Rectal: Deferred Back: Normal Inspection, No CVA Tenderness, No Vertebral Tenderness Extremity: Normal Capillary Refill, Normal Inspection, Normal Range of Motion, Non Tender, No Calf Tenderness, Pedal Edema, Swelling Neurologic/Psychiatric: Alert, Oriented x3, Normal Mood/Affect, 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 FIM Transfers Therapy Code Descriptions/Definitions Functional [place] Measure: 0=Not Assessed/NA 4=Minimal Assistance 1=Total Assistance 5=Supervision or Setup 2=Maximal Assistance 6=Modified [place] 3=Moderate Assistance 7=Complete IndependenceSCALE: Activities may be completed with or without assistive devices. 5-Uolyrseenk-lbziitn completes the activity by him/herself with no assistance from a helper. 5-Set-up or Clean-up Assistance-helper sets up or cleans up; patient completes activity. [place] assists only prior to or following the activity. 4-Supervision or Touching Assistance-helper provides verbal cues and/or touching/steadying and/or contact guard assistance as patient completes activity. Assistance may be provided throughout the activity or intermittently. 3-Partial/Moderate Assistance-helper does LESS THAN HALF the effort. [place] lifts, holds or supports trunk or limbs, but provides less than half the effort. 2-Substantial/Maximal Assistance-helper does MORE THAN HALF the effort. [place] lifts or holds trunk or limbs and provides more than half the effort. 5-Arfuqzexv-nrwulx does ALL the effort. Patient does none of the effort to complete the activity. Or, the assistance of 2 or more helpers is required for the patient to complete the activity. If activity was not attempted, code reason: 7-Patient Refused. 9-Not Applicable-not attempted and the patient did not perform the activity before the current illness, exacerbation or injury. 10-Not Attempted due to Environmental Limitations-(lack of equipment, weather restraints, etc.). 88-Not Attempted due to Medical Conditions or Safety Concerns. Roll Left to Right (QC): 4 Sit to Lying (QC): 4 Sit to Stand (QC): 4 Chair/Fdo-pw-Wrzpy Xfer(QC): 4 Car Transfer (QC): 3 Gait Training Does the Patient Walk?: Yes Distance: 150'x2 Walk 10 feet (QC): 4 Walk 50 ft with 2 Turns(QC): 4 Walk 150 ft (QC): 4 Walking 10ft/uneven surface-QC: 3 Gait Persons Needed: 1 Gait Assistive Device: FWW Wheelchair Training Does the Pt Use a Wheelchair?: Yes Wheel 50 ft with 2 turns (QC): 4 Wheel 150 ft (QC): 9 Type of Wheelchair: Manual Stair Training Stair Training: Handrails/: 2 handrails #of Steps: 4 1 Step (curb) (QC): 4 4 Steps (QC): 4 12 Steps (QC): 88 Stairs: Pattern: Step to Balance Picking up an Object (QC): 88 ADL-Treatment Eating (QC): 6 (Per pt report) Oral Hygiene (QC): 4 (CGA-SBA for standing balance) Shower/Bathe Self (QC): 3 (min A with buttocks, seated) Upper Body Dressing (QC): 5 Lower Body Dressing (QC): 3 (Mod A to thread BLE through brief) On/Off Footwear (QC): 2 (Max A to thread both feet to heels. Pt able to hike socks up with increased time) Toileting Hygiene (QC): 3 (Min A to maneuver clothing ) Assessment/Plan Assessment and Plan Assess & Plan/Chief Complaint Assessment: Debility Cellulitis lower legs on Vanc Severe lower extremity edema Hypothyroidisim Anemia Hypoalbuminemia Elevated DDimer negative Dopplers Snehal doss DC C. difficile colitis Plan: PT OT protocol Brian cath DC in 2 days Home meds Monitor closely 10/10/2021: Vanc PT OT 10/11/2021: Antibiotics Lower extremity edema management 10/12/2021: Monitor closely Complete antibiotics Wrap legs 10/13/2021: Complete antibiotics Supportive care 10/14/2021: C. difficile treatment Supportive care 10/15/2021: Continue Zofran and vancomycin p.o. 10/16/2021: Improved stools 10/17/2021: Questran change to prn BID 10/18/2021: Monitor closely (1) Immobility Status: Acute (2) Cellulitis Status: Acute (3) Lower extremity edema Status: Acute (4) Hypothyroidism Status: Acute MOLLY MUIR DO Oct 18, 2021 05:45
[2021-10-18] MEDS: KCL 20 MEQ TAB (K-DUR) PO SCH (06:00)
[2021-10-18] MEDS: FUROSEMIDE 20 MG (LASIX) TAB PO SCH (06:01)
[2021-10-18] MEDS: LEVOTHYROXINE 88 MCG (LEVOTHORID) TAB PO SCH (06:01)
[2021-10-18 07:20] VITALS: BP 167/78
[2021-10-18 07:44] VITALS: BP 129/62
[2021-10-18] MEDS: ENOXAPARIN 40 MG/0.4 ML (LOVENOX) SYR SC SCH (07:57)
[2021-10-18] MEDS: PANTOPRAZOLE 40 MG (PROTONIX) TAB PO SCH (07:57)
[2021-10-18] MEDS: SYSTANE EYE DROPS OU SCH ×2 (07:58→20:52)
[2021-10-18] MEDS: AREDS PO SCH ×2 (07:58→20:52)
[2021-10-18] MEDS: LACTOBACILLUS ACIDOPHILUS (PROBIOTIC) CAPSULE PO SCH ×3 (08:07→18:05)
[2021-10-18] MEDS: polyethylene glycoL POWDER 17 GM (MIRALAX) PACK PO SCH ×2 (08:08→20:53)
[2021-10-18] MEDS: DOCUSATE SODIUM 100 MG (COLACE) CAP PO SCH ×2 (08:08→20:53)
[2021-10-18] MEDS: SENNA W/DOCUSATE (SENOKOT S) TABLET PO SCH ×2 (08:08→20:53)
--- NOTE | 2021-10-18 09:29 | Progress Note ---
Subjective Subjective Date Seen by Provider: Oct 18, 2021 Time Seen by Provider: 08:00 Patient resting comfortably in chair. Patient's lower extremities look much improved compared to two days ago. Patient states she is working with PT/OT and is able to simulate some of the setups in her home so she can feel more con fident about ADLs when she goes home. Patient does feel she is getting her strength back and is improving. Patient is wearing a P[place]ICK at night. OT brought up some concerns about confusion the patient is having, not remember exercising/staff members. In conversation it does not appear that patient is confused, but patient is having short term memory troubles. Thinking that the ev ents of the past three nights all happened last night. Will check patient's labs and UA. Review of Systems General: No Chills, No Night Sweats HEENT: No Head Aches, No Visual Changes Pulmonary: No Dyspnea, No Cough Cardiovascular: Edema; No: Chest Pain, Palpitations Gastrointestinal: No: Nausea, Vomiting Genitourinary: No Dysuria, No Frequency Musculoskeletal: leg pain Neurological: Weakness (improving); No: Change in speech, Confusion All Other Systems Reviewed All Other Systems Reviewed: Yes Objective Exam Vital Signs Vital Signs Date Time Temp Pulse Resp B/P (MAP) Pulse Ox O2 Delivery O2 Flow Rate FiO2 10/18/21 07:20 36.7 77 20 167/78 (107) 96 Room Air 10/17/21 20:46 Room Air 10/17/21 19:47 37.3 81 20 161/74 (103) 96 Room Air 10/17/21 09:30 Room Air General Appearance: No Apparent Distress, WD/WN, Chronically ill HEENT: PERRL/EOMI Neck: Non Tender, Supple, Carotid Bruit Respiratory: Chest Non Tender, Lungs Clear, Normal Breath Sounds, No Accessory Muscle Use, No Respiratory Distress Cardiovascular: Regular Rate, Rhythm, No Gallop, No Murmur, Normal Peripheral Pulses Gastrointestinal: Normal Bowel Sounds, No Organomegaly, Non Tender, Soft Rectal: Deferred Extremity: Non Tender, No Calf Tenderness, Pedal Edema, Swelling Neurologic/Psychiatric: Alert, Oriented x3 (see HPI on confusion), Normal Mood/Affect Skin: Normal Color, Warm/Dry, Rash (bilateral lower extremity. Improving) Results Lab Microbiology 10/12/21 C. difficile DNA Amplification - Final, Complete Assessment/Plan Assessment/Plan Assessment and Plan Assessment Generalized weakness/fatigue Confusion C. Diff Colitis Cellulitits of LE, resolved Anemia Hypothyroidism Hypertension Plan Continue oral vancomycin, patient on day 6 CBC, CMP, UA PT/OT Adjusting Lasix 20 to QD Continue Cholestyramine powder, lotion, and general wound care of LE Losartan 25 HS for elevated BP in AM Levothyroxine at home dose Lovenox for DVT prophylaxis Supervisory-Addendum Brief Verification & Attestation Participated in pt care: history, MDM, physical Personally performed: exam, history, MDM, supervision of care Care discussed with: Medical Student Procedures: n/a Results interpretation: Verified all documentation Pt reports that she is feeling better, she denies chest pain, shortness of breath, abdominal pain, nausea. She reports that her stools have improved as well. She is more interested in home health today than on previous days. She reports that she is not confused, however the hospital staff seems to think that she is confused at times, having trouble remembering when she has done therapies during the daytime. we will check ua, cbc, cmp today. ETTA WORKMAN Oct 18, 2021 09:29 AMBER PAULINO MD Oct 18, 2021 22:21
[2021-10-18 09:51] LABS: HEMATOCRIT 31 % (35-52); HEMOGLOBIN 9.6 g/dL (11.5-16.0); MEAN CORPUSCULAR HEMOGLOBIN 31 pg (25-34); MEAN CORPUSCULAR HGB CONC 31 g/dL (32-36); MEAN CORPUSCULAR VOLUME 99 fL (80-99); PLATELET COUNT 475 10^3/uL (130-400); WHITE BLOOD COUNT 9.7 10^3/uL (4.3-11.0)
[2021-10-18 10:02] LABS: POTASSIUM 3.7 MMOL/L (3.6-5.0)
[2021-10-18 10:03] LABS: CALCIUM 8.5 MG/DL (8.5-10.1)
[2021-10-18 10:08] LABS: CREATININE SERUM 0.94 MG/DL (0.60-1.30)
[2021-10-18 10:10] LABS: MAGNESIUM 2.2 MG/DL (1.6-2.4)
--- NOTE | 2021-10-18 10:13 | Occupational Ther Daily Note ---
OT Current Status-Daily Note Subjective Pt seated in recliner upon OT arrival, agreeable to tx. Pt was much more cooperative during tx today. Mental Status/Objective Patient Orientation: Person, Place, Situation ADL-Treatment Therapy Code Descriptions/Definitions Functional [place] Measure: 0=Not Assessed/NA 4=Minimal Assistance 1=Total Assistance 5=Supervision or Setup 2=Maximal Assistance 6=Modified [place] 3=Moderate Assistance 7=Complete IndependenceSCALE: Activities may be completed with or without assistive devices. 9-Ysqjzvvfmy-gpjylvw completes the activity by him/herself with no assistance from a helper. 5-Set-up or Clean-up Assistance-helper sets up or cleans up; patient completes activity. [place] assists only prior to or following the activity. 4-Supervision or Touching Assistance-helper provides verbal cues and/or touching/steadying and/or contact guard assistance as patient completes activity. Assistance may be provided throughout the activity or intermittently. 3-Partial/Moderate Assistance-helper does LESS THAN HALF the effort. [place] lifts, holds or supports trunk or limbs, but provides less than half the effort. 2-Substantial/Maximal Assistance-helper does MORE THAN HALF the effort. [place] lifts or holds trunk or limbs and provides more than half the effort. 0-Brxswzlqo-wbojae does ALL the effort. Patient does none of the effort to complete the activity. Or, the assistance of 2 or more helpers is required for the patient to complete the activity. If activity was not attempted, code reason: 7-Patient Refused. 9-Not Applicable-not attempted and the patient did not perform the activity before the current illness, exacerbation or injury. 10-Not Attempted due to Environmental Limitations-(lack of equipment, weather restraints, etc.). 88-Not Attempted due to Medical Conditions or Safety Concerns. Oral Hygiene (QC): 4 (SBA for standing balance) Upper Body Dressing (QC): 5 Lower Body Dressing (QC): 4 (SBA for standing balance during hike. Pt able to doff/don brief and pants following set up.) Toileting Hygiene (QC): 4 (SBA for standing balance while wiping buttocks) Other Treatment OT educated pt about the importance of participating in therapy and demonstrating ADLs capabilities since pt insists she is able to complete them IND once at home, pt verbalized understanding. Pt unable to stand successfully from recliner on first try, so OT provided skilled instruction on BLE placement, then pt stood from recliner SBA. Pt walked into bathroom, SBA, to complete toileting, dressing, and oral care/grooming tasks. Pt was cooperative during self-care tasks, talking clinician through dressing routine at home. Pt required increased time to complete dressing tasks because she was determined to complete without AE. OT noticed rash at base of pt's neck during grooming tasks, nurse notified. After completing self-care tasks, pt walked back to recliner, SBA. Pt expressed satisfaction with ADL performance during tx today. Post tx, pt left in recliner with call light in reach an all needs met. Education OT Patient Education: Correct positioning, Energy conservation, Exercise program, Modified ADL techniques, Progress toward Goal/Update tx plan, Purpose of tx/functional activities, Rehab process, Use of adapted equipment Teaching Recipient: Patient Teaching Methods: Discussion Response to Teaching: Verbalize Understanding OT Short Term Goals Short Term Goals Time Frame: Oct 17, 2021 Toileting hygiene: 4 Shower/bathe self: 4 Lower body dressin OT Portfolio Consultant Goals [facility] Goals Time Frame: Oct 26, 2021 Eating (QC): 6 Oral Hygiene (QC): 6 Toileting Hygiene (QC): 6 Shower/Bathe Self (QC): 6 Upper Body Dressing (QC): 6 Lower Body Dressing (QC): 6 On/Off Footwear (QC): 6 Additional Goals: 1-Demonstrate ADL Tasks, 2-Verbalize Understanding, 3- ImproveStrength/Omari 1=Demonstrate adherence to instructed precautions during ADL tasks. 2=Patient will verbalize/demonstrate understanding of assistive devices/modifications for ADL. 3=Patient will improve strength/tolerance for activity to enable patient to perform ADL's. OT Education/Plan Problem List/Assessment Assessment: Decreased Activ Tolerance, Decreased UE Strength, Impaired Funct Balance, Impaired I ADL's, Impaired Self-Care Skills Discharge Recommendations Plan/Recommendations: Continue POC Treatment Plan/Plan of Care Patient would benefit from OT for education, treatment and training to promote independence in ADL's, mobility, safety and/or upper extremity function for ADL's. Plan of Care: ADL Retraining, Functional Mobility, Group Exercise/Act as Ind, UE Funct Exercise/Act Treatment Duration: Oct 26, 2021 Frequency: At least 5 of 7 days/Wk (IRF) Estimated Hrs Per Day: 1.5 hours per day Rehab Potential: Good Time/GCodes Start Time: 09:00 Stop Time: 10:00 Total Time Billed (hr/min): 60 Billed Treatment Time 1, ADL 4 (60') JEWELS MCCORMICK OT Oct 18, 2021 10:13
--- NOTE | 2021-10-18 11:05 | Physical Therapy Daily Note ---
PT Daily Note-Current Subjective Pt. agrees to Rx, willing to attempt stairs and car TRF, c/o left hip pain only with range of motion /activity Pain Numeric Pain Scale: 5-Moderate Pain Location: Left Location Body Site: Hip Pain Description: Ache Mental Status Patient Orientation: Normal For Age Attachments: Other-See Comments (shawn wraps bilat LEs) Transfers SCALE: Activities may be completed with or without assistive devices. 9-Qscylhkxvo-xaeqgrw completes the activity by him/herself with no assistance from a helper. 5-Set-up or Clean-up Assistance-helper sets up or cleans up; patient completes activity. [place] assists only prior to or following the activity. 4-Supervision or Touching Assistance-helper provides verbal cues and/or touching/steadying and/or contact guard assistance as patient completes activity. Assistance may be provided throughout the activity or intermittently. 3-Partial/Moderate Assistance-helper does LESS THAN HALF the effort. [place] lifts, holds or supports trunk or limbs, but provides less than half the effort. 2-Substantial/Maximal Assistance-helper does MORE THAN HALF the effort. [place] lifts or holds trunk or limbs and provides more than half the effort. 7-Jwgqapyjy-mpoppf does ALL the effort. Patient does none of the effort to com plete the activity. Or, the assistance of 2 or more helpers is required for the patient to complete the activity. If activity was not attempted, code reason: 7-Patient Refused. 9-Not Applicable-not attempted and the patient did not perform the activity before the current illness, exacerbation or injury. 10-Not Attempted due to Environmental Limitations-(lack of equipment, weather restraints, etc.). 88-Not Attempted due to Medical Conditions or Safety Concerns. Sit to Stand (QC): 6 Car Transfer (QC): 6 pt. refuses bed sup to sit TRFs stating she will never get in bed at home and is sleeping in the recliner here now. Gait Training Does the Patient Walk?: Yes Walk 50 ft with 2 Turns(QC): 6 Walk 150 ft (QC): 6 Gait Persons Needed: 1 Gait Assistive Device: FWW SBA, slow gait, no LOB, narrow BOBBY , head down kyphotic Stair Training Stair Training: Handrails/: 1 handrail (1 quad cane) #of Steps: 4 4 Steps (QC): 4 12 Steps (QC): 88 Stairs: Pattern: Step to simulated home situation with rail on one side and quad cane on the other, CGA and instruction for sequence Exercises Supine Ex: Bridging, Ankle pumps, Quad Set, Glut sets, Straight leg raise (asst), Hip abd/add (asst) Supine Reps: 15 Treatments pt. doffed bilat socks with dressing stick, max asst by therapist to dario shawn wrps and sacks Assessment Current Status: Good Progress PT Halfway Goals Rn Clinical Review Goals PT Rn Clinical Review Goals Time Frame: Nov 10, 2021 Roll Left & Right (QC): 6 Sit to Lying (QC): 6 Lying-Sitting on Side/Bed(QC): 6 Sit to Stand (QC): 6 Chair/Kfd-or-Ddbeb Xfer(QC): 6 Toilet Transfer (QC): 6 Car Transfer (QC): 6 Does the Patient Walk: Yes Walk 10 feet (QC): 6 Walk 50ft with 2 Turns (QC): 6 Walk 150 ft (QC): 6 Walking 10ft on Uneven Surface: 6 1 Step (curb) (QC): 4 4 Steps (QC): 4 12 Steps (QC): 4 Picking up an Object (QC): 6 Does the Pt use WC or Scooter?: No Wheel 50 feet with 2 turns (QC: 9 Type: N/A Wheel 150 feet: 9 Type: N/A PT Plan Treatment/Plan Treatment Plan: Continue Plan of Care Treatment Plan: Bed Mobility, Concurrent Therapy, Education, Functional Activity Omari, Functional Strength, Group Therapy, Gait, Safety, Therapeutic Exercise, Transfers Treatment Duration: Nov 10, 2021 Frequency: At least 5 of 7 days/Wk (IRF) Estimated Hrs Per Day: 1.5 hours per day Patient and/or Family Agrees t: Yes Safety Risks/Education Patient Education: Gait Training, Transfer Techniques, Steps, Correct Positioning, Disease Process, Safety Issues Teaching Recipient: Patient Teaching Methods: Demonstration, Discussion Response to Teaching: Verbalize Understanding, Return Demonstration, Reinforcement Needed Time/GCodes Time In: 1000 Time Out: 1100 Total Billed Treatment Time: 60 Total Billed Treatment 1,FA30m,GT20m,EX10m CANDACE QUIJANO TENNIS CAMP INSTRUCTOR Oct 18, 2021 11:05
[2021-10-18 12:16] LABS: BILIRUBIN,URINE NEGATIVE (NEGATIVE); CLARITY,URINE CLEAR; COLOR,URINE YELLOW; GLUCOSE, URINE (UA) NEGATIVE (NEGATIVE); KETONES,URINE NEGATIVE (NEGATIVE); LEUKOCYTE ESTERASE ,URINE NEGATIVE (NEGATIVE); NITRITE,URINE NEGATIVE (NEGATIVE); PH,URINE 6.5 (5-9); PROTEIN,URINE NEGATIVE (NEGATIVE)
[2021-10-18 12:41] LABS: BACTERIA,URINE NEGATIVE /HPF
--- NOTE | 2021-10-18 13:41 | Occupational Ther Daily Note ---
OT Current Status-Daily Note Subjective Pt resting in recliner upon OT arrival, agreeable to tx. Mental Status/Objective Patient Orientation: Person, Place, Situation ADL-Treatment Therapy Code Descriptions/Definitions Functional [place] Measure: 0=Not Assessed/NA 4=Minimal Assistance 1=Total Assistance 5=Supervision or Setup 2=Maximal Assistance 6=Modified [place] 3=Moderate Assistance 7=Complete IndependenceSCALE: Activities may be completed with or without assistive devices. 4-Gvwamemxys-gjfqprt completes the activity by him/herself with no assistance from a helper. 5-Set-up or Clean-up Assistance-helper sets up or cleans up; patient completes activity. [place] assists only prior to or following the activity. 4-Supervision or Touching Assistance-helper provides verbal cues and/or touching/steadying and/or contact guard assistance as patient completes activity. Assistance may be provided throughout the activity or intermittently. 3-Partial/Moderate Assistance-helper does LESS THAN HALF the effort. [place] lifts, holds or supports trunk or limbs, but provides less than half the effort. 2-Substantial/Maximal Assistance-helper does MORE THAN HALF the effort. [place] lifts or holds trunk or limbs and provides more than half the effort. 9-Jxqefmtxy-rniwqr does ALL the effort. Patient does none of the effort to complete the activity. Or, the assistance of 2 or more helpers is required for the patient to complete the activity. If activity was not attempted, code reason: 7-Patient Refused. 9-Not Applicable-not attempted and the patient did not perform the activity be fore the current illness, exacerbation or injury. 10-Not Attempted due to Environmental Limitations-(lack of equipment, weather restraints, etc.). 88-Not Attempted due to Medical Conditions or Safety Concerns. Other Treatment Pt was cognizant of BLE placement prior to standing from recliner, stood with CGA. She declined any ADLs at this time, and walked to therapy gym with MARNIE MOSQUEDA. Pt declined seated RB after walking to gym and prior to start of functional activity. She stood for ~5mins at white board, took <1min seated RB, and stood for another ~9mins to finish activity. OT educated pt about BLE placement during standing activities to provide safe BOBBY, pt verbalized understanding and shifting BLE further apart. The functional activity challenged pt's standing activity tolerance and functional balance as she stood at white board and reached BUE in all planes to complete giant word search puzzle. Pt verbalized being pleased with therapy performance today. Post tx, pt left in therapy gym with PT. Education OT Patient Education: Correct positioning, Energy conservation, Exercise pr ogram, Modified ADL techniques, Progress toward Goal/Update tx plan, Purpose of tx/functional activities, Rehab process Teaching Recipient: Patient Teaching Methods: Discussion Response to Teaching: Verbalize Understanding OT Short Term Goals Short Term Goals Time Frame: Oct 17, 2021 Toileting hygiene: 4 Shower/bathe self: 4 Lower body dressin OT Tool/Die Maker Goals [facility] Goals Time Frame: Oct 26, 2021 Eating (QC): 6 Oral Hygiene (QC): 6 Toileting Hygiene (QC): 6 Shower/Bathe Self (QC): 6 Upper Body Dressing (QC): 6 Lower Body Dressing (QC): 6 On/Off Footwear (QC): 6 Additional Goals: 1-Demonstrate ADL Tasks, 2-Verbalize Understanding, 3- ImproveStrength/Omari 1=Demonstrate adherence to instructed precautions during ADL tasks. 2=Patient will verbalize/demonstrate understanding of assistive devices/modifications for ADL. 3=Patient will improve strength/tolerance for activity to enable patient to perform ADL's. OT Education/Plan Problem List/Assessment Assessment: Decreased Activ Tolerance, Decreased UE Strength, Impaired Funct Balance, Impaired I ADL's, Impaired Self-Care Skills Discharge Recommendations Plan/Recommendations: Continue POC Treatment Plan/Plan of Care Patient would benefit from OT for education, treatment and training to promote independence in ADL's, mobility, safety and/or upper extremity function for ADL's. Plan of Care: ADL Retraining, Functional Mobility, Group Exercise/Act as Ind, UE Funct Exercise/Act Treatment Duration: Oct 26, 2021 Frequency: At least 5 of 7 days/Wk (IRF) Estimated Hrs Per Day: 1.5 hours per day Rehab Potential: Good Time/GCodes Start Time: 13:00 Stop Time: 13:30 Total Time Billed (hr/min): 30 Billed Treatment Time 1, FA 2 (30') JEWELS MCCORMICK OT Oct 18, 2021 13:41
--- NOTE | 2021-10-18 14:34 | Physical Therapy Daily Note ---
PT Daily Note-Current Subjective Pt. agrees to Rx. Pt. is resistant to exercise left hip in any position. Agrees to try the Nustep again and supine LE after the Nustep was too uncomfortable Pain Numeric Pain Scale: 5-Moderate Pain Location: Left Location Body Site: Hip Pain Description: Stabbing Comment: no pain while at rest Mental Status Patient Orientation: Normal For Age Transfers SCALE: Activities may be completed with or without assistive devices. 1-Mwdxkgkxdn-kkbgvlu completes the activity by him/herself with no assistance from a helper. 5-Set-up or Clean-up Assistance-helper sets up or cleans up; patient completes activity. [place] assists only prior to or following the activity. 4-Supervision or Touching Assistance-helper provides verbal cues and/or t ouching/steadying and/or contact guard assistance as patient completes activity. Assistance may be provided throughout the activity or intermittently. 3-Partial/Moderate Assistance-helper does LESS THAN HALF the effort. [place] lifts, holds or supports trunk or limbs, but provides less than half the effort. 2-Substantial/Maximal Assistance-helper does MORE THAN HALF the effort. [place] lifts or holds trunk or limbs and provides more than half the effort. 8-Ojzplqkpn-mspllz does ALL the effort. Patient does none of the effort to complete the activity. Or, the assistance of 2 or more helpers is required for the patient to complete the activity. If activity was not attempted, code reason: 7-Patient Refused. 9-Not Applicable-not attempted and the patient did not perform the activity before the current illness, exacerbation or injury. 10-Not Attempted due to Environmental Limitations-(lack of equipment, weather restraints, etc.). 88-Not Attempted due to Medical Conditions or Safety Concerns. Sit to Lying (QC): 4 Lying to Sitting/Side of Bed(Q: 4 Sit to Stand (QC): 6 Gait Training Gait Assistive Device: FWW 165ft, 25ft SBA Exercises Supine Ex: Ankle pumps, Rolling, Glut sets, Heel Slides (asst), Short Arc Quads, Scooting, Straight leg raise (asst), Hip abd/add (asst) NuStep Minutes: 8 NuStep Workload: 1 PT Shelter Goals Shelter Goals PT Mussel Opener Goals Time Frame: Nov 10, 2021 Roll Left & Right (QC): 6 Sit to Lying (QC): 6 Lying-Sitting on Side/Bed(QC): 6 Sit to Stand (QC): 6 Chair/Jed-py-Wsxra Xfer(QC): 6 Toilet Transfer (QC): 6 Car Transfer (QC): 6 Does the Patient Walk: Yes Walk 10 feet (QC): 6 Walk 50ft with 2 Turns (QC): 6 Walk 150 ft (QC): 6 Walking 10ft on Uneven Surface: 6 1 Step (curb) (QC): 4 4 Steps (QC): 4 12 Steps (QC): 4 Picking up an Object (QC): 6 Does the Pt use WC or Scooter?: No Wheel 50 feet with 2 turns (QC: 9 Type: N/A Wheel 150 feet: 9 Type: N/A PT Plan Treatment/Plan Treatment Plan: Continue Plan of Care Treatment Plan: Bed Mobility, Concurrent Therapy, Education, Functional Activity Omari, Functional Strength, Group Therapy, Gait, Safety, Therapeutic Exercise, Transfers Treatment Duration: Nov 10, 2021 Frequency: At least 5 of 7 days/Wk (IRF) Estimated Hrs Per Day: 1.5 hours per day Patient and/or Family Agrees t: Yes Safety Risks/Education Patient Education: Gait Training, Transfer Techniques, Correct Positioning, Disease Process, Safety Issues Teaching Recipient: Patient Teaching Methods: Demonstration, Discussion Response to Teaching: Verbalize Understanding, Return Demonstration, Reinforcement Needed Time/GCodes Time In: 1330 Time Out: 1400 Total Billed Treatment Time: 30 Total Billed Treatment 1,GT15m,EX15m CANDACE QUIJANO CLINICAL NURSE EDUCATOR Oct 18, 2021 14:34
[2021-10-18 20:09] VITALS: BP 149/79
[2021-10-18] MEDS: MELATONIN 3 MG TABLET PO SCH (20:52)
[2021-10-18] MEDS: HYDROcodone/APAP 5 MG/325 MG (LORTAB) TAB PO PRN (20:52)
[2021-10-18] MEDS: LOSARTAN 25 MG (COZAAR) TAB PO SCH (20:52)
[2021-10-19] MEDS: VANCOMYCIN 125 MG CAPSULE PO SCH ×5 (00:01→23:47)
[2021-10-19] MEDS: HYDROcodone/APAP 5 MG/325 MG (LORTAB) TAB PO PRN ×2 (00:01→23:47)
[2021-10-19] MEDS: MELATONIN 3 MG TABLET PO SCH ×2 (00:01→23:47)
[2021-10-19] MEDS: LEVOTHYROXINE 88 MCG (LEVOTHORID) TAB PO SCH (06:03)
--- NOTE | 2021-10-19 06:32 | PM&R Progress Note ---
Subjective HPI/CC On Admission Date Seen by Provider: Oct 19, 2021 Time Seen by Provider: 12:30 Pt is an 85 y/o female who was admitted to the hospital with severe edema and cellulitis - she was admitted for treatment of the infection, and was found to be profoundly weak with need for IRF Subjective/Events-last exam 10/19/2021: Pt is doing really well Discharge on Friday Elevated bp in the morning but it stabilizes throughout the day Slept really well 10/18/2021: Doing better Dressed herself Needs to work on socks and shoes Labs and UA ordered by PCP which were normal 10/17/2021: Patient doing well Edema improved No falls Pain improved Changing Questran to BID due to no BM and don't want to cause constipation 10/16/2021: Doing well Gaining strength No pain reported Loose stools improved 10/15/2021: Patient feels better Diarrhea less intense Lower extremity edema improved Vancomycin completed 10/14/2021: Patient doing well Diarrhea improved Vancomycin p.o. and Questran helping No other concerns Brian catheter discontinued 10/13/2021: Patient sleeping well Overall improving every day Gaining strength Nurses have no concerns 10/12/2021: Patient doing well No concerns Antibiotic tolerated Feels like she is getting stronger 10/11/2021: Doing better Lower extremity edema much improved Brian catheter still in place Antibiotics maintained 10/10/2021: Doing well Improved strength already Patient appears to be very debilitated and self neglected Vanc still maintained Brian cath in place for another few days due to incontinence Review of Systems General: Fatigue, Malaise Cardiovascular: Edema Objective Exam Vital Signs Vital Signs Date Time Temp Pulse Resp B/P (MAP) Pulse Ox O2 Delivery O2 Flow Rate FiO2 10/19/21 08:22 Room Air 10/19/21 07:13 36.7 76 18 166/77 (106) 96 Capillary Refill : General Appearance: No Apparent Distress, WD/WN, Chronically ill HEENT: PERRL/EOMI Neck: Non Tender, Supple, Carotid Bruit Respiratory: Chest Non Tender, Lungs Clear, Normal Breath Sounds, No Accessory Muscle Use, No Respiratory Distress Cardiovascular: Regular Rate, Rhythm, No Gallop, No Murmur, Normal Peripheral Pulses Gastrointestinal: Normal Bowel Sounds, No Organomegaly, Non Tender, Soft Rectal: Deferred Back: Normal Inspection, No CVA Tenderness, No Vertebral Tenderness Extremity: Non Tender, No Calf Tenderness, Pedal Edema, Swelling Neurologic/Psychiatric: Alert, Oriented x3 (see HPI on confusion), Normal Mood/Affect Skin: Normal Color, Warm/Dry, Rash (bilateral lower extremity. Improving) Lymphatic: No Adenopathy Results/Procedures Lab Patient resulted labs reviewed. FIM Transfers Therapy Code Descriptions/Definitions Functional [place] Measure: 0=Not Assessed/NA 4=Minimal Assistance 1=Total Assistance 5=Supervision or Setup 2=Maximal Assistance 6=Modified [place] 3=Moderate Assistance 7=Complete IndependenceSCALE: Activities may be completed with or without assistive devices. 6-Cwfhsvzsqu-rrbocxy completes the activity by him/herself with no assistance from a helper. 5-Set-up or Clean-up Assistance-helper sets up or cleans up; patient completes activity. [place] assists only prior to or following the activity. 4-Supervision or Touching Assistance-helper provides verbal cues and/or touching/steadying and/or contact guard assistance as patient completes activ ity. Assistance may be provided throughout the activity or intermittently. 3-Partial/Moderate Assistance-helper does LESS THAN HALF the effort. [place] lifts, holds or supports trunk or limbs, but provides less than half the effort. 2-Substantial/Maximal Assistance-helper does MORE THAN HALF the effort. [place] lifts or holds trunk or limbs and provides more than half the effort. 6-Ctwmlskni-wagodr does ALL the effort. Patient does none of the effort to complete the activity. Or, the assistance of 2 or more helpers is required for the patient to complete the activity. If activity was not attempted, code reason: 7-Patient Refused. 9-Not Applicable-not attempted and the patient did not perform the activity before the current illness, exacerbation or injury. 10-Not Attempted due to Environmental Limitations-(lack of equipment, weather restraints, etc.). 88-Not Attempted due to Medical Conditions or Safety Concerns. Roll Left to Right (QC): 4 Sit to Lying (QC): 4 Sit to Stand (QC): 6 Chair/Zuk-fo-Bhjvq Xfer(QC): 4 Car Transfer (QC): 6 Gait Training Does the Patient Walk?: Yes Distance: 150'x2 Walk 10 feet (QC): 4 Walk 50 ft with 2 Turns(QC): 6 Walk 150 ft (QC): 6 Walking 10ft/uneven surface-QC: 3 Gait Persons Needed: 1 Gait Assistive Device: FWW Wheelchair Training Does the Pt Use a Wheelchair?: Yes Wheel 50 ft with 2 turns (QC): 4 Wheel 150 ft (QC): 9 Type of Wheelchair: Manual Stair Training Stair Training: Handrails/: 1 handrail (1 quad cane) #of Steps: 4 1 Step (curb) (QC): 4 4 Steps (QC): 4 12 Steps (QC): 88 Stairs: Pattern: Step to Balance Picking up an Object (QC): 88 ADL-Treatment Eating (QC): 6 (Per pt report) Oral Hygiene (QC): 4 (SBA for standing balance) Shower/Bathe Self (QC): 3 (min A with buttocks, seated) Upper Body Dressing (QC): 5 Lower Body Dressing (QC): 4 (SBA for standing balance during hike. Pt able to doff/don brief and pants following set up.) On/Off Footwear (QC): 2 (Max A to thread both feet to heels. Pt able to hike socks up with increased time) Toileting Hygiene (QC): 4 (SBA for standing balance while wiping buttocks) Assessment/Plan Assessment and Plan Assess & Plan/Chief Complaint Assessment: Debility Cellulitis lower legs on Vanc Severe lower extremity edema Hypothyroidisim Anemia Hypoalbuminemia Elevated DDimer negative Dopplers Brian cath DC C. difficile colitis Plan: PT OT protocol Brian cath DC in 2 days Home meds Monitor closely 10/10/2021: Vanc PT OT 10/11/2021: Antibiotics Lower extremity edema management 10/12/2021: Monitor closely Complete antibiotics Wrap legs 10/13/2021: Complete antibiotics Supportive care 10/14/2021: C. difficile treatment Supportive care 10/15/2021: Continue Zofran and vancomycin p.o. 10/16/2021: Improved stools 10/17/2021: Questran change to prn BID 10/18/2021: Monitor closely 10/19/2021: Continue vanc PO (1) Immobility Status: Acute (2) Cellulitis Status: Acute (3) Lower extremity edema Status: Acute (4) Hypothyroidism Status: Acute MOLLY MUIR DO Oct 19, 2021 06:32
[2021-10-19] MEDS: FUROSEMIDE 20 MG (LASIX) TAB PO SCH (06:44)
[2021-10-19] MEDS: KCL 20 MEQ TAB (K-DUR) PO SCH (06:44)
[2021-10-19 07:13] VITALS: BP 166/77
[2021-10-19] MEDS: LACTOBACILLUS ACIDOPHILUS (PROBIOTIC) CAPSULE PO SCH ×3 (07:54→18:41)
[2021-10-19] MEDS: PANTOPRAZOLE 40 MG (PROTONIX) TAB PO SCH (07:54)
[2021-10-19] MEDS: DOCUSATE SODIUM 100 MG (COLACE) CAP PO SCH ×2 (07:55→21:19)
[2021-10-19] MEDS: ENOXAPARIN 40 MG/0.4 ML (LOVENOX) SYR SC SCH (07:55)
[2021-10-19] MEDS: AREDS PO SCH ×2 (07:55→21:05)
[2021-10-19] MEDS: SYSTANE EYE DROPS OU SCH ×2 (07:55→21:04)
[2021-10-19] MEDS: SENNA W/DOCUSATE (SENOKOT S) TABLET PO SCH ×2 (07:56→21:20)
[2021-10-19] MEDS: polyethylene glycoL POWDER 17 GM (MIRALAX) PACK PO SCH ×2 (07:56→21:19)
--- NOTE | 2021-10-19 12:05 | Physical Therapy Daily Note ---
PT Daily Note-Current Subjective Pt. agrees to rx and is more compliant to attempt TRFs and funct mob Pain Location: No Pain Reported Mental Status Patient Orientation: Normal For Age Transfers SCALE: Activities may be completed with or without assistive devices. 8-Petixfcxbj-jpljiod completes the activity by him/herself with no assistance from a helper. 5-Set-up or Clean-up Assistance-helper sets up or cleans up; patient completes activity. [place] assists only prior to or following the activity. 4-Supervision or Touching Assistance-helper provides verbal cues and/or touching/steadying and/or contact guard assistance as patient completes activity. Assistance may be provided throughout the activity or intermittently. 3-Partial/Moderate Assistance-helper does LESS THAN HALF the effort. [place] lifts, holds or supports trunk or limbs, but provides less than half the effort. 2-Substantial/Maximal Assistance-helper does MORE THAN HALF the effort. [place] lifts or holds trunk or limbs and provides more than half the effort. 9-Kjaaxouir-bpzfcq does ALL the effort. Patient does none of the effort to complete the activity. Or, the assistance of 2 or more helpers is required for the patient to complete the activity. If activity was not attempted, code reason: 7-Patient Refused. 9-Not Applicable-not attempted and the patient did not perform the activity before the current illness, exacerbation or injury. 10-Not Attempted due to Environmental Limitations-(lack of equipment, weather restraints, etc.). 88-Not Attempted due to Medical Conditions or Safety Concerns. Roll Left & Right (QC): 5 Sit to Lying (QC): 5 Lying to Sitting/Side of Bed(Q: 5 Sit to Stand (QC): 6 Chair/Vgt-fi-Vtigq Xfer(QC): 6 Toilet Transfer (QC): 6 much progress this date in attempt at sit to sup and sup to sit, pt. was able to bring LEs into bed indep as well as out of bed, rolling and even finding a comfortable position in left side lying Gait Training Does the Patient Walk?: Yes Walk 150 ft (QC): 5 Walking 10ft/uneven surface-QC: 5 Gait Persons Needed: 1 Gait Assistive Device: FWW 165 ft x 2, 50 ft x 1 FWW CGA Stair Training Stair Training: Handrails/: 1 handrail (one cane) #of Steps: 6 4 Steps (QC): 4 Stairs: Pattern: Step to simulated home situation in and out with good success. Exercises Seated Therapy Exercises: Ankle pumps, Sit to stand, Long arc quads, Hip abd/add Seated Reps: 12 Treatments gait, bed TRF, stairs, gait on uneven surface, toileting Assessment Current Status: Good Progress marked cooperation and progress today PT Custodial Goals Kiln Tester Goals PT Custodial Goals Time Frame: Nov 10, 2021 Roll Left & Right (QC): 6 Sit to Lying (QC): 6 Lying-Sitting on Side/Bed(QC): 6 Sit to Stand (QC): 6 Chair/God-pr-Cccec Xfer(QC): 6 Toilet Transfer (QC): 6 Car Transfer (QC): 6 Does the Patient Walk: Yes Walk 10 feet (QC): 6 Walk 50ft with 2 Turns (QC): 6 Walk 150 ft (QC): 6 Walking 10ft on Uneven Surface: 6 1 Step (curb) (QC): 4 4 Steps (QC): 4 12 Steps (QC): 4 Picking up an Object (QC): 6 Does the Pt use WC or Scooter?: No Wheel 50 feet with 2 turns (QC: 9 Type: N/A Wheel 150 feet: 9 Type: N/A PT Plan Treatment/Plan Treatment Plan: Continue Plan of Care Treatment Plan: Bed Mobility, Concurrent Therapy, Education, Functional Activity Omari, Functional Strength, Group Therapy, Gait, Safety, Therapeutic Exercise, Transfers Treatment Duration: Nov 10, 2021 Frequency: At least 5 of 7 days/Wk (IRF) Estimated Hrs Per Day: 1.5 hours per day Patient and/or Family Agrees t: Yes Safety Risks/Education Patient Education: Gait Training, Transfer Techniques, Steps, Correct Positioning, Disease Process, Safety Issues Teaching Recipient: Patient Teaching Methods: Demonstration, Discussion Response to Teaching: Verbalize Understanding, Return Demonstration, Reinforcement Needed Time/GCodes Time In: 1000 Time Out: 1100 Total Billed Treatment Time: 60 Total Billed Treatment 1,FA40m,GT20m CANDACE QUIJANO HAZMAT TANKER DRIVER Oct 19, 2021 12:05
--- NOTE | 2021-10-19 12:52 | Occupational Ther Daily Note ---
OT Current Status-Daily Note Subjective Pt reclining in chair with nurse present upon OT arrival, agreeable to tx. Pt said she is "doing pretty well" today. Mental Status/Objective Patient Orientation: Person, Place, Situation ADL-Treatment Therapy Code Descriptions/Definitions Functional [place] Measure: 0=Not Assessed/NA 4=Minimal Assistance 1=Total Assistance 5=Supervision or Setup 2=Maximal Assistance 6=Modified [place] 3=Moderate Assistance 7=Complete IndependenceSCALE: Activities may be completed with or without assistive devices. 9-Otosuyqasv-anmrnsl completes the activity by him/herself with no assistance from a helper. 5-Set-up or Clean-up Assistance-helper sets up or cleans up; patient completes activity. [place] assists only prior to or following the activity. 4-Supervision or Touching Assistance-helper provides verbal cues and/or touching/steadying and/or contact guard assistance as patient completes activity. Assistance may be provided throughout the activity or intermittently. 3-Partial/Moderate Assistance-helper does LESS THAN HALF the effort. [place] lifts, holds or supports trunk or limbs, but provides less than half the effort. 2-Substantial/Maximal Assistance-helper does MORE THAN HALF the effort. [place] lifts or holds trunk or limbs and provides more than half the effort. 0-Uudyauifc-lovmhk does ALL the effort. Patient does none of the effort to complete the activity. Or, the assistance of 2 or more helpers is required for the patient to complete the activity. If activity was not attempted, code reason: 7-Patient Refused. 9-Not Applicable-not attempted and the patient did not perform the activity before the current illness, exacerbation or injury. 10-Not Attempted due to Environmental Limitations-(lack of equipment, weather restraints, etc.). 88-Not Attempted due to Medical Conditions or Safety Concerns. Oral Hygiene (QC): 4 (SBA for standing balance) Shower/Bathe Self (QC): 4 (SBA for standing balance during buttocks/periarea hygiene) Upper Body Dressing (QC): 5 Lower Body Dressing (QC): 4 (SBA for standing balance during pant hike) On/Off Footwear: 4 (V/c's for sequencing with sock aide) Toileting Hygiene (QC): 4 (SBA for standing balance during pant hike) Other Treatment Pt required Min A to stand from recliner, and then she walked to bathroom, SBA, to complete showering, dressing, toileting, and oral care/grooming tasks. OT provided skilled instruction in the use of AE for LBD and footwear, pt much more receptive to AE today and was able to return demonstration. Pt verbalized excitement with increasing IND in LBD and footwear d/t AE. She still requires increased time to complete tasks, but she is becoming more efficient and showing more confidence with ADLs and functional balance. After completing self-care tasks, pt walked back to recliner, SBA. Post tx, pt left in recliner with call light in reach and all needs met. Education OT Patient Education: Correct positioning, Energy conservation, Exercise program, Modified ADL techniques, Progress toward Goal/Update tx plan, Purpose of tx/functional activities, Rehab process, Safety issues, Use of adapted equipment Teaching Recipient: Patient Teaching Methods: Demonstration, Discussion Response to Teaching: Verbalize Understanding, Return Demonstration OT Short Term Goals Short Term Goals Time Frame: Oct 17, 2021 Toileting hygiene: 4 Shower/bathe self: 4 Lower body dressin OT Longterm Goals Longterm Goals Time Frame: Oct 26, 2021 Eating (QC): 6 Oral Hygiene (QC): 6 Toileting Hygiene (QC): 6 Shower/Bathe Self (QC): 6 Upper Body Dressing (QC): 6 Lower Body Dressing (QC): 6 On/Off Footwear (QC): 6 Additional Goals: 1-Demonstrate ADL Tasks, 2-Verbalize Understanding, 3- ImproveStrength/Omari 1=Demonstrate adherence to instructed precautions during ADL tasks. 2=Patient will verbalize/demonstrate understanding of assistive devices/modifications for ADL. 3=Patient will improve strength/tolerance for activity to enable patient to perform ADL's. OT Education/Plan Problem List/Assessment Assessment: Decreased Activ Tolerance, Decreased UE Strength, Impaired Funct Balance, Impaired I ADL's, Impaired Self-Care Skills Discharge Recommendations Plan/Recommendations: Continue POC Equpiment Recommendations-D/C: Extended Bath Bench, Hip Kit Treatment Plan/Plan of Care Patient would benefit from OT for education, treatment and training to promote independence in ADL's, mobility, safety and/or upper extremity function for ADL's. Plan of Care: ADL Retraining, Functional Mobility, Group Exercise/Act as Ind, UE Funct Exercise/Act Treatment Duration: Oct 26, 2021 Frequency: At least 5 of 7 days/Wk (IRF) Estimated Hrs Per Day: 1.5 hours per day Rehab Potential: Good Time/GCodes Start Time: 08:00 Stop Time: 09:00 Total Time Billed (hr/min): 60 Billed Treatment Time 1, ADL 4 (60') JEWELS MCCORMICK OT Oct 19, 2021 12:52
--- NOTE | 2021-10-19 14:31 | Therapy Group Daily Note ---
Therapy Daily Group Note Patient Education Topic Home Safety Exercises Sit to/from Stand Session Ratio (pt:therapist): 4:1 Goal of Session: Education on ARU Expectations, Home Safety Strategies Goal Met for this Session: Yes Pt Benefit of Group: Contributions to Others, F/U Use of Strategies @Home, Increased Functional Safety, Improved Cognition, Socialization Other/Notes Pt participated in group PT OT session this date . Pt. ambulated from room to gym and back as well as from seat to activity board during group. Pt. introduced self and shared appropriately with group . Education regarding purpose and goals of ARU were explained, Home safety spanning many different topic was covered with pts sharing their strategies for home safety. Pts participated in memory activity matching images from memory. Pt. in room in chair after Rx cary at hand, needs met Start Time: 13:00 Stop Time: 14:15 Total Billed Treatment Time: 75 Total Billed Treatment 1,GRP CANDACE QUIJANO STICK FEEDER Oct 19, 2021 14:31
[2021-10-19 20:17] VITALS: BP 160/75
[2021-10-19] MEDS: LOSARTAN 25 MG (COZAAR) TAB PO SCH (21:04)
[2021-10-20] MEDS: LEVOTHYROXINE 88 MCG (LEVOTHORID) TAB PO SCH (06:09)
[2021-10-20] MEDS: KCL 20 MEQ TAB (K-DUR) PO SCH (06:25)
[2021-10-20] MEDS: FUROSEMIDE 20 MG (LASIX) TAB PO SCH (06:25)
[2021-10-20] MEDS: VANCOMYCIN 125 MG CAPSULE PO SCH ×4 (06:25→23:51)
--- NOTE | 2021-10-20 06:56 | PM&R Progress Note ---
Subjective HPI/CC On Admission Date Seen by Provider: Oct 20, 2021 Time Seen by Provider: 11:00 Pt is an 85 y/o female who was admitted to the hospital with severe edema and cellulitis - she was admitted for treatment of the infection, and was found to be profoundly weak with need for IRF Subjective/Events-last exam 10/20/2021: Doing very well Gaining strength No more loose stools Supportive care 10/19/2021: Pt is doing really well Discharge on Friday Elevated bp in the morning but it stabilizes throughout the day Slept really well 10/18/2021: Doing better Dressed herself Needs to work on socks and shoes Labs and UA ordered by PCP which were normal 10/17/2021: Patient doing well Edema improved No falls Pain improved Changing Questran to BID due to no BM and don't want to cause constipation 10/16/2021: Doing well Gaining strength No pain reported Loose stools improved 10/15/2021: Patient feels better Diarrhea less intense Lower extremity edema improved Vancomycin completed 10/14/2021: Patient doing well Diarrhea improved Vancomycin p.o. and Questran helping No other concerns Brian catheter discontinued 10/13/2021: Patient sleeping well Overall improving every day Gaining strength Nurses have no concerns 10/12/2021: Patient doing well No concerns Antibiotic tolerated Feels like she is getting stronger 10/11/2021: Doing better Lower extremity edema much improved Brian catheter still in place Antibiotics maintained 10/10/2021: Doing well Improved strength already Patient appears to be very debilitated and self neglected Vanc still maintained Brian cath in place for another few days due to incontinence Review of Systems General: Fatigue, Malaise Objective Exam Vital Signs Vital Signs Date Time Temp Pulse Resp B/P (MAP) Pulse Ox O2 Delivery O2 Flow Rate FiO2 10/20/21 09:35 Room Air 10/20/21 07:30 36.7 72 18 154/69 (97) 97 Capillary Refill : General Appearance: No Apparent Distress, WD/WN, Chronically ill HEENT: PERRL/EOMI Neck: Non Tender, Supple, Carotid Bruit Respiratory: Chest Non Tender, Lungs Clear, Normal Breath Sounds, No Accessory Muscle Use, No Respiratory Distress Cardiovascular: Regular Rate, Rhythm, No Gallop, No Murmur, Normal Peripheral Pulses Gastrointestinal: Normal Bowel Sounds, No Organomegaly, Non Tender, Soft Rectal: Deferred Back: Normal Inspection, No CVA Tenderness, No Vertebral Tenderness Extremity: Non Tender, No Calf Tenderness, Pedal Edema, Swelling Neurologic/Psychiatric: Alert, Oriented x3 (see HPI on confusion), Normal Mood/Affect Skin: Normal Color, Warm/Dry, Rash (bilateral lower extremity. Improving) Lymphatic: No Adenopathy Results/Procedures Lab Patient resulted labs reviewed. FIM Transfers Therapy Code Descriptions/Definitions Functional [place] Measure: 0=Not Assessed/NA 4=Minimal Assistance 1=Total Assistance 5=Supervision or Setup 2=Maximal Assistance 6=Modified [place] 3=Moderate Assistance 7=Complete IndependenceSCALE: Activities may be completed with or without assistive devices. 5-Fpiujcembi-mbqfidb completes the activity by him/herself with no assistance from a helper. 5-Set-up or Clean-up Assistance-helper sets up or cleans up; patient completes activity. [place] assists only prior to or following the activity. 4-Supervision or Touching Assistance-helper provides verbal cues and/or touching/steadying and/or contact guard assistance as patient completes activity. Assistance may be provided throughout the activity or intermittently. 3-Partial/Moderate Assistance-helper does LESS THAN HALF the effort. [place] lifts, holds or supports trunk or limbs, but provides less than half the effort. 2-Substantial/Maximal Assistance-helper does MORE THAN HALF the effort. [place] lifts or holds trunk or limbs and provides more than half the effort. 7-Emampelnt-tfjwrs does ALL the effort. Patient does none of the effort to complete the activity. Or, the assistance of 2 or more helpers is required for the patient to complete the activity. If activity was not attempted, code reason: 7-Patient Refused. 9-Not Applicable-not attempted and the patient did not perform the activity before the current illness, exacerbation or injury. 10-Not Attempted due to Environmental Limitations-(lack of equipment, weather restraints, etc.). 88-Not Attempted due to Medical Conditions or Safety Concerns. Roll Left to Right (QC): 5 Sit to Lying (QC): 5 Sit to Stand (QC): 6 Chair/Jeo-op-Ttkix Xfer(QC): 6 Car Transfer (QC): 6 Gait Training Does the Patient Walk?: Yes Distance: 150'x2 Walk 10 feet (QC): 4 Walk 50 ft with 2 Turns(QC): 6 Walk 150 ft (QC): 5 Walking 10ft/uneven surface-QC: 5 Gait Persons Needed: 1 Gait Assistive Device: FWW Wheelchair Training Does the Pt Use a Wheelchair?: Yes Wheel 50 ft with 2 turns (QC): 4 Wheel 150 ft (QC): 9 Type of Wheelchair: Manual Stair Training Stair Training: Handrails/: 1 handrail (one cane) #of Steps: 6 1 Step (curb) (QC): 4 4 Steps (QC): 4 12 Steps (QC): 88 Stairs: Pattern: Step to Balance Picking up an Object (QC): 88 ADL-Treatment Eating (QC): 6 (Per pt report) Oral Hygiene (QC): 4 (SBA for standing balance) Shower/Bathe Self (QC): 4 (SBA for standing balance during buttocks/periarea hygiene) Upper Body Dressing (QC): 5 Lower Body Dressing (QC): 4 (SBA for standing balance during pant hike) On/Off Footwear (QC): 4 (V/c's for sequencing with sock aide) Toileting Hygiene (QC): 4 (SBA for standing balance during pant hike) Assessment/Plan Assessment and Plan Assess & Plan/Chief Complaint Assessment: Debility Cellulitis lower legs on Vanc Severe lower extremity edema Hypothyroidisim Anemia Hypoalbuminemia Elevated DDimer negative Dopplers Brian cath LENA C. difficile colitis Plan: PT OT protocol Brian cath DC in 2 days Home meds Monitor closely 10/10/2021: Vanc PT OT 10/11/2021: Antibiotics Lower extremity edema management 10/12/2021: Monitor closely Complete antibiotics Wrap legs 10/13/2021: Complete antibiotics Supportive care 10/14/2021: C. difficile treatment Supportive care 10/15/2021: Continue Zofran and vancomycin p.o. 10/16/2021: Improved stools 10/17/2021: Questran change to prn BID 10/18/2021: Monitor closely 10/19/2021: Continue vanc PO 10/20/2021: Continue treatment plan (1) Immobility Status: Acute (2) Cellulitis Status: Acute (3) Lower extremity edema Status: Acute (4) Hypothyroidism Status: Acute MOLLY MUIR DO Oct 20, 2021 06:56
[2021-10-20 07:30] VITALS: BP 154/69
[2021-10-20] MEDS: LACTOBACILLUS ACIDOPHILUS (PROBIOTIC) CAPSULE PO SCH ×3 (09:53→17:39)
[2021-10-20] MEDS: PANTOPRAZOLE 40 MG (PROTONIX) TAB PO SCH (09:53)
[2021-10-20] MEDS: ENOXAPARIN 40 MG/0.4 ML (LOVENOX) SYR SC SCH (09:54)
[2021-10-20] MEDS: AREDS PO SCH ×2 (10:15→20:27)
[2021-10-20] MEDS: SYSTANE EYE DROPS OU SCH ×2 (10:16→20:28)
--- NOTE | 2021-10-20 11:42 | Physical Therapy Daily Note ---
PT Daily Note-Current Subjective PT sitting in recliner upon arrival. Pt agrees to PT for QC scoring for anticipated d/c Friday. Pain Location: No Pain Reported Mental Status Patient Orientation: Person, Place, Time, Situation Transfers SCALE: Activities may be completed with or without assistive devices. 5-Gceacjubqv-zskzesx completes the activity by him/herself with no assistance from a helper. 5-Set-up or Clean-up Assistance-helper sets up or cleans up; patient completes activity. [place] assists only prior to or following the activity. 4-Supervision or Touching Assistance-helper provides verbal cues and/or touching/steadying and/or contact guard assistance as patient completes activity. Assistance may be provided throughout the activity or intermittently. 3-Partial/Moderate Assistance-helper does LESS THAN HALF the effort. [place] lifts, holds or supports trunk or limbs, but provides less than half the effort. 2-Substantial/Maximal Assistance-helper does MORE THAN HALF the effort. [place] lifts or holds trunk or limbs and provides more than half the effort. 5-Otwgmcszc-oxhcog does ALL the effort. Patient does none of the effort to complete the activity. Or, the assistance of 2 or more helpers is required for the patient to complete the activity. If activity was not attempted, code reason: 7-Patient Refused. 9-Not Applicable-not attempted and the patient did not perform the activity before the current illness, exacerbation or injury. 10-Not Attempted due to Environmental Limitations-(lack of equipment, weather restraints, etc.). 88-Not Attempted due to Medical Conditions or Safety Concerns. Roll Left & Right (QC): 5 Sit to Lying (QC): 5 Lying to Sitting/Side of Bed(Q: 5 Sit to Stand (QC): 6 Chair/Rfn-wh-[place] Xfer(QC): 6 Toilet Transfer (QC): 6 Car Transfer (QC): 5 Weight Bearing Full Weight Bearing Full Weight Bearing Gait Training Does the Patient Walk?: Yes Distance: 150' Walk 10 feet (QC): 5 Walk 50 ft with 2 Turns(QC): 5 Walk 150 ft (QC): 5 Walking 10ft/uneven surface-QC: 5 Gait Assistive Device: FWW Stair Training Stair Training: Handrails/: 1 handrail, uses cane #of Steps: 6 1 Step (curb) (QC): 5 4 Steps (QC): 5 12 Steps (QC): 7 Stairs: Pattern: Step to Balance Picking up an Object (QC): 5 Treatments Pt completes QC scoring items listed above. [facility] returning to room to rest in recliner. All needs met, call light next to pt. Assessment Current Status: Good Progress Pt has gained strength and mobility. PT Health Data Administrator Goals Health Data Administrator Goals PT Health Data Administrator Goals Time Frame: Nov 10, 2021 Roll Left & Right (QC): 6 Sit to Lying (QC): 6 Lying-Sitting on Side/Bed(QC): 6 Sit to Stand (QC): 6 Chair/Fcr-kz-Ndpqm Xfer(QC): 6 Toilet Transfer (QC): 6 Car Transfer (QC): 6 Does the Patient Walk: Yes Walk 10 feet (QC): 6 Walk 50ft with 2 Turns (QC): 6 Walk 150 ft (QC): 6 Walking 10ft on Uneven Surface: 6 1 Step (curb) (QC): 4 4 Steps (QC): 4 12 Steps (QC): 4 Picking up an Object (QC): 6 Does the Pt use WC or Scooter?: No Wheel 50 feet with 2 turns (QC: 9 Type: N/A Wheel 150 feet: 9 Type: N/A PT Plan Problem List Problem List: Activity Tolerance Treatment/Plan Treatment Plan: Continue Plan of Care Treatment Plan: Bed Mobility, Concurrent Therapy, Education, Functional Activity [place], Functional Strength, Group Therapy, Gait, Safety, Therapeutic Exercise, Transfers Treatment Duration: Nov 10, 2021 Frequency: At least 5 of 7 days/Wk (IRF) Estimated Hrs Per Day: 1.5 hours per day Patient and/or Family Agrees t: Yes Safety Risks/Education Patient Education: Transfer Techniques, Steps Teaching Recipient: Patient Teaching Methods: Discussion Response to Teaching: Verbalize Understanding Time/GCodes Time In: 940 Time Out: 1010 Total Billed Treatment Time: 30 Total Billed Treatment 1, FA (15m) & GT (15m) RANJITH CARLISLE LUMBER STACKER DRIVER Oct 20, 2021 11:42
[2021-10-20] MEDS: polyethylene glycoL POWDER 17 GM (MIRALAX) PACK PO SCH ×2 (13:37→20:29)
[2021-10-20] MEDS: DOCUSATE SODIUM 100 MG (COLACE) CAP PO SCH ×2 (13:37→20:28)
[2021-10-20] MEDS: SENNA W/DOCUSATE (SENOKOT S) TABLET PO SCH ×2 (13:37→20:29)
[2021-10-20] MEDS: LOSARTAN 25 MG (COZAAR) TAB PO SCH (20:26)
[2021-10-20] MEDS: MELATONIN 3 MG TABLET PO SCH (20:26)
[2021-10-20 20:56] VITALS: BP 149/60
[2021-10-21] MEDS: VANCOMYCIN 125 MG CAPSULE PO SCH ×3 (05:03→18:52)
--- NOTE | 2021-10-21 06:40 | PM&R Progress Note ---
Subjective HPI/CC On Admission Date Seen by Provider: Oct 21, 2021 Time Seen by Provider: 12:00 Pt is an 85 y/o female who was admitted to the hospital with severe edema and cellulitis - she was admitted for treatment of the infection, and was found to be profoundly weak with need for IRF Subjective/Events-last exam 10/21/2021: Doing well Ready for DC tomorrow No pain 10/20/2021: Doing very well Gaining strength No more loose stools Supportive care 10/19/2021: Pt is doing really well Discharge on Friday Elevated bp in the morning but it stabilizes throughout the day Slept really well 10/18/2021: Doing better Dressed herself Needs to work on socks and shoes Labs and UA ordered by PCP which were normal 10/17/2021: Patient doing well Edema improved No falls Pain improved Changing Questran to BID due to no BM and don't want to cause constipation 10/16/2021: Doing well Gaining strength No pain reported Loose stools improved 10/15/2021: Patient feels better Diarrhea less intense Lower extremity edema improved Vancomycin completed 10/14/2021: Patient doing well Diarrhea improved Vancomycin p.o. and Questran helping No other concerns Brian catheter discontinued 10/13/2021: Patient sleeping well Overall improving every day Gaining strength Nurses have no concerns 10/12/2021: Patient doing well No concerns Antibiotic tolerated Feels like she is getting stronger 10/11/2021: Doing better Lower extremity edema much improved Brian catheter still in place Antibiotics maintained 10/10/2021: Doing well Improved strength already Patient appears to be very debilitated and self neglected Vanc still maintained Brian cath in place for another few days due to incontinence Review of Systems General: Fatigue, Malaise Objective Exam Vital Signs Vital Signs Date Time Temp Pulse Resp B/P (MAP) Pulse Ox O2 Delivery O2 Flow Rate FiO2 10/22/21 00:05 160/70 (100) 10/21/21 21:00 95 Room Air 10/21/21 20:00 36.7 73 20 Capillary Refill : General Appearance: No Apparent Distress, WD/WN, Chronically ill HEENT: PERRL/EOMI Neck: Non Tender, Supple, Carotid Bruit Respiratory: Chest Non Tender, Lungs Clear, Normal Breath Sounds, No Accessory Muscle Use, No Respiratory Distress Cardiovascular: Regular Rate, Rhythm, No Gallop, No Murmur, Normal Peripheral Pulses Gastrointestinal: Normal Bowel Sounds, No Organomegaly, Non Tender, Soft Rectal: Deferred Back: Normal Inspection, No CVA Tenderness, No Vertebral Tenderness Extremity: Non Tender, No Calf Tenderness, Pedal Edema, Swelling Neurologic/Psychiatric: Alert, Oriented x3 (see HPI on confusion), Normal Mood/Affect Skin: Normal Color, Warm/Dry, Rash (bilateral lower extremity. Improving) Lymphatic: No Adenopathy Results/Procedures Lab Patient resulted labs reviewed. FIM Transfers Therapy Code Descriptions/Definitions Functional [place] Measure: 0=Not Assessed/NA 4=Minimal Assistance 1=Total Assistance 5=Supervision or Setup 2=Maximal Assistance 6=Modified [place] 3=Moderate Assistance 7=Complete IndependenceSCALE: Activities may be completed with or without assistive devices. 3-Jzjfnwhuxc-dmtziim completes the activity by him/herself with no assistance from a helper. 5-Set-up or Clean-up Assistance-helper sets up or cleans up; patient completes activity. [place] assists only prior to or following the activity. 4-Supervision or Touching Assistance-helper provides verbal cues and/or touching/steadying and/or contact guard assistance as patient completes activity. Assistance may be provided throughout the activity or intermittently. 3-Partial/Moderate Assistance-helper does LESS THAN HALF the effort. [place] lifts, holds or supports trunk or limbs, but provides less than half the effort. 2-Substantial/Maximal Assistance-helper does MORE THAN HALF the effort. [place] lifts or holds trunk or limbs and provides more than half the effort. 7-Pgkuptzna-ffcupo does ALL the effort. Patient does none of the effort to complete the activity. Or, the assistance of 2 or more helpers is required for the patient to complete the activity. If activity was not attempted, code reason: 7-Patient Refused. 9-Not Applicable-not attempted and the patient did not perform the activity before the current illness, exacerbation or injury. 10-Not Attempted due to Environmental Limitations-(lack of equipment, weather restraints, etc.). 88-Not Attempted due to Medical Conditions or Safety Concerns. Roll Left to Right (QC): 5 Sit to Lying (QC): 5 Sit to Stand (QC): 6 Chair/Gbm-bc-Fniyl Xfer(QC): 6 Car Transfer (QC): 5 Gait Training Does the Patient Walk?: Yes Distance: 150' Walk 10 feet (QC): 5 Walk 50 ft with 2 Turns(QC): 5 Walk 150 ft (QC): 5 Walking 10ft/uneven surface-QC: 5 Gait Persons Needed: 1 Gait Assistive Device: FWW Wheelchair Training Does the Pt Use a Wheelchair?: Yes Wheel 50 ft with 2 turns (QC): 4 Wheel 150 ft (QC): 9 Type of Wheelchair: Manual Stair Training Stair Training: Handrails/: 1 handrail, uses cane #of Steps: 6 1 Step (curb) (QC): 5 4 Steps (QC): 5 12 Steps (QC): 7 Stairs: Pattern: Step to Balance Picking up an Object (QC): 5 ADL-Treatment Eating (QC): 6 (Per pt report) Oral Hygiene (QC): 4 (SBA for standing balance) Shower/Bathe Self (QC): 4 (SBA for standing balance during buttocks/periarea hygiene) Upper Body Dressing (QC): 5 Lower Body Dressing (QC): 4 (SBA for standing balance during pant hike) On/Off Footwear (QC): 4 (V/c's for sequencing with sock aide) Toileting Hygiene (QC): 4 (SBA for standing balance during pant hike) Assessment/Plan Assessment and Plan Assess & Plan/Chief Complaint Assessment: Debility Cellulitis lower legs on Vanc Severe lower extremity edema Hypothyroidisim Anemia Hypoalbuminemia Elevated DDimer negative Dopplers Snehal doss DC C. difficile colitis Plan: PT OT protocol Snehal doss DC in 2 days Home meds Monitor closely 10/10/2021: Vanc PT OT 10/11/2021: Antibiotics Lower extremity edema management 10/12/2021: Monitor closely Complete antibiotics Wrap legs 10/13/2021: Complete antibiotics Supportive care 10/14/2021: C. difficile treatment Supportive care 10/15/2021: Continue Zofran and vancomycin p.o. 10/16/2021: Improved stools 10/17/2021: Questran change to prn BID 10/18/2021: Monitor closely 10/19/2021: Continue vanc PO 10/20/2021: Continue treatment plan 10/21/2021: DC tomorrow (1) Immobility Status: Acute (2) Cellulitis Status: Acute (3) Lower extremity edema Status: Acute (4) Hypothyroidism Status: Acute MOLLY MUIR DO Oct 21, 2021 06:40
[2021-10-21] MEDS: LEVOTHYROXINE 88 MCG (LEVOTHORID) TAB PO SCH (06:47)
[2021-10-21] MEDS: FUROSEMIDE 20 MG (LASIX) TAB PO SCH (06:47)
[2021-10-21] MEDS: KCL 20 MEQ TAB (K-DUR) PO SCH (06:47)
[2021-10-21 07:30] VITALS: BP 161/73
[2021-10-21] MEDS: PANTOPRAZOLE 40 MG (PROTONIX) TAB PO SCH (10:10)
[2021-10-21] MEDS: ENOXAPARIN 40 MG/0.4 ML (LOVENOX) SYR SC SCH (10:10)
[2021-10-21] MEDS: LACTOBACILLUS ACIDOPHILUS (PROBIOTIC) CAPSULE PO SCH ×3 (10:10→18:52)
[2021-10-21] MEDS: SYSTANE EYE DROPS OU SCH ×2 (10:19→20:41)
[2021-10-21] MEDS: AREDS PO SCH ×2 (10:19→20:40)
[2021-10-21] MEDS: polyethylene glycoL POWDER 17 GM (MIRALAX) PACK PO SCH ×2 (14:52→20:40)
[2021-10-21] MEDS: DOCUSATE SODIUM 100 MG (COLACE) CAP PO SCH ×2 (14:52→20:41)
[2021-10-21] MEDS: SENNA W/DOCUSATE (SENOKOT S) TABLET PO SCH ×2 (14:52→20:41)
[2021-10-21 20:00] VITALS: BP 171/75
[2021-10-21] MEDS: MELATONIN 3 MG TABLET PO SCH (20:41)
[2021-10-21] MEDS: LOSARTAN 25 MG (COZAAR) TAB PO SCH (20:41)
[2021-10-22 00:05] VITALS: BP 160/70
[2021-10-22] MEDS: VANCOMYCIN 125 MG CAPSULE PO SCH ×5 (00:07→23:26)
[2021-10-22] MEDS ORDERED: PANT40TA52 PO (05:49)
[2021-10-22] MEDS ORDERED: LOSA25TA41 PO (05:49)
[2021-10-22] MEDS ORDERED: VANC125C5 PO (05:49)
--- NOTE | 2021-10-22 05:50 | D/C HH Face to Face Order ---
D/C Face to Face Orders Reconcile Patient Problems Problems Reviewed?: Yes Instructions for Patient Via [facility], Patient Instructions/FollowUp: PCP 1 week Physician to follow Patient: Jed Discharge Diet for Home: No Restrictions Patient Problems: edema debility Patient Data-Allergies,Ht & Wt Patient Allergies: Coded Allergies: No Known Drug Allergies (Unverified , 10/06/21) Home Health Need/Face to Face Date of Face to Face: Oct 22, 2021 Clinical Findings: Generalized weakness and fatigue, Instability, Muscle weakness I have seen Pt isqx-xh-dneh: Yes Discharged To: Home Diagnosis/Conditions: Debility Patient is Homebound due to: M[place] fall risk due to instabilty, Muscle weakness Homebound Status Due to the above stated illness, injury or surgical procedure (medical condition or diagnosis) and associated clinical findings, the patient is homebound because of his/her inability to leave home except with aid of a supportive device and/or person AND leaving the home requires a considerable and taxing effort or is medically contraindicated. Pt req the following assistanc: Walker [facility] Nursing Orders Home Health Services Order: Nursing Services, Cad Specialist-Evaluate & Treat, Physical Therapy-Evaluate & Treat, Other (bath aide) Certify Stmt I certify that this patient is under my care and that I, a nurse practitioner or a physician; a assistant chief nursing officer working with me, had a face to face encounter that - meets the physician face to face encounter requirements with this patient as dated. MOLLY MUIR DO Oct 22, 2021 05:50
--- NOTE | 2021-10-22 05:51 | Discharge Summary ---
Diagnosis/Chief Complaint Date of Admission Oct 09, 2021 at 09:39 Date of Discharge Discharge Date: Oct 22, 2021 Discharge Diagnosis Assessment: Debility Cellulitis lower legs on Vanc Severe lower extremity edema Hypothyroidisim Anemia Hypoalbuminemia Elevated DDimer negative Dopplers Brian cath DC C. difficile colitis Plan: PT OT protocol Brian cath DC in 2 days Home meds Monitor closely 10/10/2021: Vanc PT OT 10/11/2021: Antibiotics Lower extremity edema management 10/12/2021: Monitor closely Complete antibiotics Wrap legs 10/13/2021: Complete antibiotics Supportive care 10/14/2021: C. difficile treatment Supportive care 10/15/2021: Continue Zofran and vancomycin p.o. 10/16/2021: Improved stools 10/17/2021: Questran change to prn BID 10/18/2021: Monitor closely 10/19/2021: Continue vanc PO 10/20/2021: Continue treatment plan 10/21/2021: DC tomorrow (1) Immobility Status: Acute (2) Cellulitis Status: Acute (3) Lower extremity edema Status: Acute (4) Hypothyroidism Status: Acute Discharge Summary Discharge Physical Examination Allergies: Coded Allergies: No Known Drug Allergies (Unverified , 10/06/21) Vitals & I&Os Vital Signs Date Time Temp Pulse Resp B/P (MAP) Pulse Ox O2 Delivery O2 Flow Rate FiO2 10/22/21 19:58 36.9 82 22 132/69 (90) 91 Room Air General Appearance: Alert, Oriented X3, Cooperative Respiratory: Clear to Auscultation Cardiovascular: Regular Rate Neuro: Normal Gait, Normal Speech, Strength at 5/5 X4 Ext Hospital Course Was the Problem List Reviewed?: Yes Labs (last 24 hrs) Laboratory Tests 10/09/21 09:39: Lab Scanned Report Referred Lab Report 10/10/21 09:18: White Blood Count 12.5H, Red Blood Count 3.40L, Hemoglobin 10.3L, Hematocrit 33L , Mean Corpuscular Volume 98, Mean Corpuscular Hemoglobin 30, Mean Corpuscular Hemoglobin Concent 31L, Red Cell Distribution Width 20.3H, Platelet Count 461H, Mean Platelet Volume 8.9L, Immature Granulocyte % (Auto) 1, Neutrophils (%) (Auto) 71, Lymphocytes (%) (Auto) 16, Monocytes (%) (Auto) 10, Eosinophils (%) (Auto) 3, Basophils (%) (Auto) 0, Neutrophils # (Auto) 8.9H, Lymphocytes # (Auto) 1.9, Monocytes # (Auto) 1.2H, Eosinophils # (Auto) 0.3, Basophils # (Auto) 0.1, Immature Granulocyte # (Auto) 0.1, Sodium Level 137, Potassium Level 3.7, Chloride Level 97L, Carbon Dioxide Level 28, Anion Gap 12, Blood Urea Nitrogen 25H, Creatinine 1.21, Estimat Glomerular Filtration Rate 44, BUN/Creatinine Ratio 21, Glucose Level 121H, Calcium Level 8.5, Corrected Calcium 9.4, Total Bilirubin 0.3, Aspartate Amino Transf (AST/SGOT) 32, Alanine Aminotransferase (ALT/SGPT) 25, Alkaline Phosphatase 66, Total Protein 6.6, Albumin 2.9L, Vancomycin Level Trough 12.6 10/13/21 05:23: White Blood Count 8.8, Red Blood Count 2.74L, Hemoglobin 8.4L, Hematocrit 27L, Mean Corpuscular Volume 97, Mean Corpuscular Hemoglobin 31, Mean Corpuscular Hemoglobin Concent 32, Red Cell Distribution Width 20.2H, Platelet Count 370, Mean Platelet Volume 9.4, Sodium Level 138, Potassium Level 4.1, Chloride Level 102, Carbon Dioxide Level 27, Anion Gap 9, Blood Urea Nitrogen 26H, Creatinine 0.82, Estimat Glomerular Filtration Rate 71, BUN/Creatinine Ratio 32, Glucose Level 99, Calcium Level 8.2L, Corrected Calcium 9.4, Total Bilirubin 0.3, Aspartate Amino Transf (AST/SGOT) 35H, Alanine Aminotransferase (ALT/SGPT) 36, Alkaline Phosphatase 59, Total Protein 5.5L, Albumin 2.5L 10/15/21 05:12: White Blood Count 8.9, Red Blood Count 2.71L, Hemoglobin 8.3L, Hematocrit 26L, Mean Corpuscular Volume 96, Mean Corpuscular Hemoglobin 31, Mean Corpuscular Hemoglobin Concent 32, Red Cell Distribution Width 19.5H, Platelet Count 395, Mean Platelet Volume 9.2, Immature Granulocyte % (Auto) 1, Neutrophils (%) (Auto) 55, Lymphocytes (%) (Auto) 20, Monocytes (%) (Auto) 16H, Eosinophils (%) (Auto) 7, Basophils (%) (Auto) 1, Neutrophils # (Auto) 4.9, Lymphocytes # (Auto) 1.8, Monocytes # (Auto) 1.4H, Eosinophils # (Auto) 0.6H, Basophils # (Auto) 0.1, Immature Granulocyte # (Auto) 0.1, Sodium Level 139, Potassium Level 4.1, Chloride Level 105, Carbon Dioxide Level 24, Anion Gap 10, Blood Urea Nitrogen 27H, Creatinine 0.98, Estimat Glomerular Filtration Rate 57, BUN/Creatinine Ratio 28, Glucose Level 98, Calcium Level 8.0L, Corrected Calcium 9.2, Total Bilirubin 0.4, Aspartate Amino Transf (AST/SGOT) 22, Alanine Aminotransferase (ALT/SGPT) 28, Alkaline Phosphatase 62, Total Protein 5.4L, Albumin 2.5L 10/18/21 09:35: White Blood Count 9.7, Red Blood Count 3.12L, Hemoglobin 9.6L, Hematocrit 31L, Mean Corpuscular Volume 99, Mean Corpuscular Hemoglobin 31, Mean Corpuscular Hemoglobin Concent 31L, Red Cell Distribution Width 19.2H, Platelet Count 475H, Mean Platelet Volume 9.0, Sodium Level 137, Potassium Level 3.7, Chloride Level 101, Carbon Dioxide Level 29, Anion Gap 7, Blood Urea Nitrogen 25H, Creatinine 0.94, Estimat Glomerular Filtration Rate 60, BUN/Creatinine Ratio 27, Glucose Level 132H, Calcium Level 8.5, Magnesium Level 2.2 10/18/21 11:40: Urine Color YELLOW, Urine Clarity CLEAR, Urine pH 6.5, Urine Specific [place] <=1.005, Urine Protein NEGATIVE, Urine Glucose (UA) NEGATIVE, Urine Ketones NEGATIVE, Urine Nitrite NEGATIVE, Urine Bilirubin NEGATIVE, Urine Urobilinogen 0.2, Urine Leukocyte Esterase NEGATIVE, Urine RBC (Auto) NEGATIVE, Urine RBC NONE, Urine WBC NONE, Urine Squamous Epithelial Cells NONE, Urine Crystals NONE, Urine Bacteria NEGATIVE, Urine Casts NONE, Urine Mucus NEGATIVE, Urine Culture Indicated NO 10/22/21 05:20: White Blood Count 15.2H, Red Blood Count 2.91L, Hemoglobin 9.0L, Hematocrit 28L, Mean Corpuscular Volume 98, Mean Corpuscular Hemoglobin 31, Mean Corpuscular Hemoglobin Concent 32, Red Cell Distribution Width 18.6H, Platelet Count 492H, Mean Platelet Volume 9.2, Sodium Level 138, Potassium Level 4.1, Chloride Level 104, Carbon Dioxide Level 23, Anion Gap 11, Blood Urea Nitrogen 28H, Creatinine 0.97, Estimat Glomerular Filtration Rate 58, BUN/Creatinine Ratio 29, Glucose Level 117H, Calcium Level 8.8, Immature Granulocyte % (Auto) 1, Neutrophils (%) (Auto) 78H, Lymphocytes (%) (Auto) 13, Monocytes (%) (Auto) 6, Eosinophils (%) (Auto) 1, Basophils (%) (Auto) 0, Neutrophils # (Auto) 11.8H, Lymphocytes # (Auto) 2.0, Monocytes # (Auto) 1.0, Eosinophils # (Auto) 0.2, Basophils # (Auto) 0.1, Immature Granulocyte # (Auto) 0.1, Corrected Calcium 9.8, Total Bilirubin 0.3, Aspartate Amino Transf (AST/SGOT) 27, Alanine Aminotransferase (ALT/SGPT) 30, Alkaline Phosphatase 60, Total Protein 6.0L, Albumin 2.7L 10/22/21 06:54: Procalcitonin 0.11H 10/22/21 09:49: Urine Color YELLOW, Urine Clarity CLEAR, Urine pH 6.0, Urine Specific [place] 1.010L, Urine Protein NEGATIVE, Urine Glucose (UA) TRACEH, Urine Ketones NEGATIVE, Urine Nitrite NEGATIVE, Urine Bilirubin NEGATIVE, Urine Urobilinogen 0.2, Urine Leukocyte Esterase NEGATIVE, Urine RBC (Auto) NEGATIVE, Urine RBC NONE, Urine WBC NONE, Urine Squamous Epithelial Cells NONE, Urine Crystals NONE, Urine Bacteria NEGATIVE, Urine Casts NONE, Urine Mucus NEGATIVE, Urine Culture Indicated NO Microbiology 10/20/21 C. difficile [facility]DH Antigen & Toxins - Final, Complete Pending Labs Microbiology Date/Time Source Procedure Growth Status 10/20/21 10:21 Stool C. difficile GDH Antigen & Toxins - Final Complete 10/12/21 08:00 Stool C. difficile DNA Amplification - Final Complete 10/12/21 08:00 Stool C. difficile GDH Antigen & Toxins - Final Complete Laboratory Tests 10/09/21 09:39: Lab Scanned Report Referred Lab Report 10/10/21 09:18: White Blood Count 12.5, Red Blood Count 3.40, Hemoglobin 10.3, Hematocrit 33, Mean Corpuscular Volume 98, Mean Corpuscular Hemoglobin 30, Mean Corpuscular Hemoglobin Concent 31, Red Cell Distribution Width 20.3, Platelet Count 461, Mean Platelet Volume 8.9, Immature Granulocyte % (Auto) 1, Neutrophils (%) (Auto) 71, Lymphocytes (%) (Auto) 16, Monocytes (%) (Auto) 10, Eosinophils (%) (Auto) 3, Basophils (%) (Auto) 0, Neutrophils # (Auto) 8.9, Lymphocytes # (Auto) 1.9, Monocytes # (Auto) 1.2, Eosinophils # (Auto) 0.3, Basophils # (Auto) 0.1, Immature Granulocyte # (Auto) 0.1, Sodium Level 137, Potassium Level 3.7, Chloride Level 97, Carbon Dioxide Level 28, Anion Gap 12, Blood Urea Nitrogen 25, Creatinine 1.21, Estimat Glomerular Filtration Rate 44, BUN/Creatinine Ratio 21, Glucose Level 121, Calcium Level 8.5, Corrected Calcium 9.4, Total Bilirubin 0.3, Aspartate Amino Transf (AST/SGOT) 32, Alanine Aminotransferase (ALT/SGPT) 25, Alkaline Phosphatase 66, Total Protein 6.6, Albumin 2.9, Vancomycin Level Trough 12.6 10/13/21 05:23: White Blood Count 8.8, Red Blood Count 2.74, Hemoglobin 8.4, Hematocrit 27, Mean Corpuscular Volume 97, Mean Corpuscular Hemoglobin 31, Mean Corpuscular Hemoglobin Concent 32, Red Cell Distribution Width 20.2, Platelet Count 370, Mean Platelet Volume 9.4, Sodium Level 138, Potassium Level 4.1, Chloride Level 102, Carbon Dioxide Level 27, Anion Gap 9, Blood Urea Nitrogen 26, Creatinine 0.82, Estimat Glomerular Filtration Rate 71, BUN/Creatinine Ratio 32, Glucose Level 99, Calcium Level 8.2, Corrected Calcium 9.4, Total Bilirubin 0.3, Aspartate Amino Transf (AST/SGOT) 35, Alanine Aminotransferase (ALT/SGPT) 36, Alkaline Phosphatase 59, Total Protein 5.5, Albumin 2.5 10/15/21 05:12: White Blood Count 8.9, Red Blood Count 2.71, Hemoglobin 8.3, Hematocrit 26, Mean Corpuscular Volume 96, Mean Corpuscular Hemoglobin 31, Mean Corpuscular Hemo globin Concent 32, Red Cell Distribution Width 19.5, Platelet Count 395, Mean Platelet Volume 9.2, Immature Granulocyte % (Auto) 1, Neutrophils (%) (Auto) 55, Lymphocytes (%) (Auto) 20, Monocytes (%) (Auto) 16, Eosinophils (%) (Auto) 7, Basophils (%) (Auto) 1, Neutrophils # (Auto) 4.9, Lymphocytes # (Auto) 1.8, Monocytes # (Auto) 1.4, Eosinophils # (Auto) 0.6, Basophils # (Auto) 0.1, Immature Granulocyte # (Auto) 0.1, Sodium Level 139, Potassium Level 4.1, Chloride Level 105, Carbon Dioxide Level 24, Anion Gap 10, Blood Urea Nitrogen 27, Creatinine 0.98, Estimat Glomerular Filtration Rate 57, BUN/Creatinine Ratio 28, Glucose Level 98, Calcium Level 8.0, Corrected Calcium 9.2, Total Bilirubin 0.4, Aspartate Amino Transf (AST/SGOT) 22, Alanine Aminotransferase (ALT/SGPT) 28, Alkaline Phosphatase 62, Total Protein 5.4, Albumin 2.5 10/18/21 09:35: White Blood Count 9.7, Red Blood Count 3.12, Hemoglobin 9.6, Hematocrit 31, Mean Corpuscular Volume 99, Mean Corpuscular Hemoglobin 31, Mean Corpuscular Hemoglobin Concent 31, Red Cell Distribution Width 19.2, Platelet Count 475, Mean Platelet Volume 9.0, Sodium Level 137, Potassium Level 3.7, Chloride Level 101, Carbon Dioxide Level 29, Anion Gap 7, Blood Urea Nitrogen 25, Creatinine 0.94, Estimat Glomerular Filtration Rate 60, BUN/Creatinine Ratio 27, Glucose Level 132, Calcium Level 8.5, Magnesium Level 2.2 10/18/21 11:40: Urine Color YELLOW, Urine Clarity CLEAR, Urine pH 6.5, Urine Specific Cisco <=1.005, Urine Protein NEGATIVE, Urine Glucose (UA) NEGATIVE, Urine Ketones NEGATIVE, Urine Nitrite NEGATIVE, Urine Bilirubin NEGATIVE, Urine Urobilinogen 0.2, Urine Leukocyte Esterase NEGATIVE, Urine RBC (Auto) NEGATIVE, Urine RBC NONE, Urine WBC NONE, Urine Squamous Epithelial Cells NONE, Urine Crystals NONE, Urine Bacteria NEGATIVE, Urine Casts NONE, Urine Mucus NEGATIVE, Urine Culture Indicated NO 10/22/21 05:20: White Blood Count 15.2, Red Blood Count 2.91, Hemoglobin 9.0, Hematocrit 28, Mean Corpuscular Volume 98, Mean Corpuscular Hemoglobin 31, Mean Corpuscular Hemoglobin Concent 32, Red Cell Distribution Width 18.6, Platelet Count 492, Mean Platelet Volume 9.2, Sodium Level 138, Potassium Level 4.1, Chloride Level 104, Carbon Dioxide Level 23, Anion Gap 11, Blood Urea Nitrogen 28, Creatinine 0.97, Estimat Glomerular Filtration Rate 58, BUN/Creatinine Ratio 29, Glucose Level 117, Calcium Level 8.8, Immature Granulocyte % (Auto) 1, Neutrophils (%) (Auto) 78, Lymphocytes (%) (Auto) 13, Monocytes (%) (Auto) 6, Eosinophils (%) (Auto) 1, Basophils (%) (Auto) 0, Neutrophils # (Auto) 11.8, Lymphocytes # (Auto) 2.0, Monocytes # (Auto) 1.0, Eosinophils # (Auto) 0.2, Basophils # (Auto) 0.1, Immature Granulocyte # (Auto) 0.1, Corrected Calcium 9.8, Total Bilirubin 0.3, Aspartate Amino Transf (AST/SGOT) 27, Alanine Aminotransferase (ALT/SGPT) 30, Alkaline Phosphatase 60, Total Protein 6.0, Albumin 2.7 10/22/21 06:54: Procalcitonin 0.11 10/22/21 09:49: Urine Color YELLOW, Urine Clarity CLEAR, Urine pH 6.0, Urine Specific Cisco 1.010, Urine Protein NEGATIVE, Urine Glucose (UA) TRACE, Urine Ketones NEGATIVE, Urine Nitrite NEGATIVE, Urine Bilirubin NEGATIVE, Urine Urobilinogen 0.2, Urine Leukocyte Esterase NEGATIVE, Urine RBC (Auto) NEGATIVE, Urine RBC NONE, Urine WBC NONE, Urine Squamous Epithelial Cells NONE, Urine Crystals NONE, Urine Bacteria NEGATIVE, Urine Casts NONE, Urine Mucus NEGATIVE, Urine Culture Indicated NO Discharge Home Medications: Active Scripts Active Pantoprazole Sodium 40 Mg Tablet.dr 40 Mg PO DAILY Losartan Potassium 25 Mg Tablet 25 Mg PO HS Vancomycin HCl 125 Mg Capsule 125 Mg PO TID take 1 pill three times a day for 3 days then 1 pills twice daily until gone Acidophilus-Pectin Capsule (Lactobacillus Acidophilus/Pect) 75 Million Cell-100 Mg Capsule 2 Each PO TIDWM Reported Iron (Ferrous Sulfate) 325 Mg (65 Mg Iron) Tablet 325 Mg PO Q48H TAKES FRIDAY, FRIDAY, FRIDAY, FRIDAY Tylenol Extra Strength (Acetaminophen) 500 Mg Tablet 500 Mg PO TID PRN One Daily For Women 50+ Adv Tb (Multivitamins-Min/FA/Ginkgo) 400 Mcg-120 Mg Tablet 1 Each PO DAILY Vitamin D3 (Cholecalciferol (Vitamin D3)) 125 Mcg (5000 Unit) Tablet 125 Mcg PO DAILY Vitamin B-6 (Pyridoxine HCl) 50 Mg Tablet 50 Mg PO DAILY Potassium Chloride 20 Meq Tablet.er 20 Meq PO DAILY PRN Lasix (Furosemide) 20 Mg Tablet 20 Mg PO DAILY PRN [Areds 2] 1 Cap PO BID [Systane] 1 Drop BID 1 DROP EACH EYE BID Levothyroxine (Levothyroxine Sodium) 88 Mcg Capsule 88 Mcg PO DAILY Instructions to patient/family Please see electronic discharge instructions given to patient. Diagnosis/Problems Diagnosis/Problems (1) Immobility Status: Acute (2) Cellulitis Status: Acute (3) Lower extremity edema Status: Acute (4) Hypothyroidism Status: Acute MOLLY MUIR DO Oct 22, 2021 05:51
[2021-10-22 05:57] LABS: BASOPHILS # (AUTO) 0.1 10^3/uL (0.0-0.1); BASOPHILS % (AUTO) 0 % (0-10); EOSINOPHILS # (AUTO) 0.2 10^3/uL (0.0-0.3); EOSINOPHILS % (AUTO) 1 % (0-10); HEMATOCRIT 28 % (35-52); LYMPHOCYTES % (AUTO) 13 % (12-44); MEAN CORPUSCULAR HEMOGLOBIN 31 pg (25-34); MEAN CORPUSCULAR HGB CONC 32 g/dL (32-36); MEAN CORPUSCULAR VOLUME 98 fL (80-99); MEAN PLATELET VOLUME 9.2 fL (9.0-12.2); MONOCYTES % (AUTO) 6 % (0-12); NEUTROPHILS # (AUTO) 11.8 10^3/uL (1.8-7.8); NEUTROPHILS % (AUTO) 78 % (42-75); PLATELET COUNT 492 10^3/uL (130-400); WHITE BLOOD COUNT 15.2 10^3/uL (4.3-11.0)
[2021-10-22 06:00] LABS: ALBUMIN 2.7 GM/DL (3.2-4.5); POTASSIUM 4.1 MMOL/L (3.6-5.0)
[2021-10-22 06:01] LABS: CALCIUM 8.8 MG/DL (8.5-10.1)
[2021-10-22 06:04] LABS: BILIRUBIN,TOTAL 0.3 MG/DL (0.1-1.0)
[2021-10-22 06:06] LABS: CREATININE SERUM 0.97 MG/DL (0.60-1.30)
[2021-10-22] MEDS: LEVOTHYROXINE 88 MCG (LEVOTHORID) TAB PO SCH (06:18)
[2021-10-22] MEDS: FUROSEMIDE 20 MG (LASIX) TAB PO SCH (06:18)
[2021-10-22] MEDS: KCL 20 MEQ TAB (K-DUR) PO SCH (06:18)
[2021-10-22 07:19] VITALS: BP 177/80
[2021-10-22] MEDS: AREDS PO SCH ×2 (08:55→21:17)
[2021-10-22] MEDS: ENOXAPARIN 40 MG/0.4 ML (LOVENOX) SYR SC SCH (08:55)
[2021-10-22] MEDS: LACTOBACILLUS ACIDOPHILUS (PROBIOTIC) CAPSULE PO SCH ×3 (08:55→17:08)
[2021-10-22] MEDS: PANTOPRAZOLE 40 MG (PROTONIX) TAB PO SCH (08:55)
[2021-10-22] MEDS: SYSTANE EYE DROPS OU SCH ×2 (08:55→21:18)
[2021-10-22] MEDS: polyethylene glycoL POWDER 17 GM (MIRALAX) PACK PO SCH ×2 (08:56→19:48)
[2021-10-22] MEDS: DOCUSATE SODIUM 100 MG (COLACE) CAP PO SCH ×2 (08:56→19:48)
[2021-10-22] MEDS: SENNA W/DOCUSATE (SENOKOT S) TABLET PO SCH ×2 (08:56→19:48)
--- NOTE | 2021-10-22 09:11 | Occupational Ther Daily Note ---
OT Current Status-Daily Note Subjective Pt resistive to treatment today, arguing with therapist throughout session. She reports anxiety towards going home today, so she didn't sleep well last night. She c/o hurting all over. Mental Status/Objective Patient Orientation: Person, Place, Situation ADL-Treatment Therapy Code Descriptions/Definitions Functional [place] Measure: 0=Not Assessed/NA 4=Minimal Assistance 1=Total Assistance 5=Supervision or Setup 2=Maximal Assistance 6=Modified [place] 3=Moderate Assistance 7=Complete IndependenceSCALE: Activities may be completed with or without assistive devices. 2-Nwqrjqytyu-vueincl completes the activity by him/herself with no assistance from a helper. 5-Set-up or Clean-up Assistance-helper sets up or cleans up; patient completes activity. [place] assists only prior to or following the activity. 4-Supervision or Touching Assistance-helper provides verbal cues and/or touching/steadying and/or contact guard assistance as patient completes activity. Assistance may be provided throughout the activity or intermittently. 3-Partial/Moderate Assistance-helper does LESS THAN HALF the effort. [place] lifts, holds or supports trunk or limbs, but provides less than half the effort. 2-Substantial/Maximal Assistance-helper does MORE THAN HALF the effort. [place] lifts or holds trunk or limbs and provides more than half the effort. 0-Bjvbjydph-qqtrbc does ALL the effort. Patient does none of the effort to complete the activity. Or, the assistance of 2 or more helpers is required for the patient to complete the activity. If activity was not attempted, code reason: 7-Patient Refused. 9-Not Applicable-not attempted and the patient did not perform the activity be fore the current illness, exacerbation or injury. 10-Not Attempted due to Environmental Limitations-(lack of equipment, weather restraints, etc.). 88-Not Attempted due to Medical Conditions or Safety Concerns. Eating (QC): 6 Oral Hygiene (QC): 4 (CGA) Shower/Bathe Self (QC): 3 (Min A to wash buttocks.) Upper Body Dressing (QC): 5 (set up due to pt refusing to get clothes out of closet herself.) Lower Body Dressing (QC): 3 (Min A with threading feet.) On/Off Footwear: 4 (VCs with AE.) Toileting Hygiene (QC): 3 (Min A with toilet hygiene) Toilet Transfer (QC): 4 Other Treatment Pt in recliner, resistive to therapy tx, not wanting to take a shower at this time. OT encouraged pt to complete, as she was going home today, and OT informed pt on Friday that this would be the plan. OT encouraged pt to get clothes from closet herself, pt replied "no I'm not". Pt required Max A to stand from recliner and used FWW to transfer into bathroom, completing ADLs as outlined above, with moderate encouragement throughout session in order for pt to attempt tasks herself. Post tx, pt in recliner, call light in reach and all needs met. Education OT Patient Education: Correct positioning, Energy conservation, Modified ADL techniques, Progress toward Goal/Update tx plan, Purpose of tx/functional activities, Rehab process Teaching Recipient: Patient Teaching Methods: Discussion Response to Teaching: Reinforcement Needed OT Short Term Goals Short Term Goals Time Frame: Oct 17, 2021 Toileting hygiene: 4 Shower/bathe self: 4 Lower body dressin OT Halfway Goals Halfway Goals Time Frame: Oct 26, 2021 Eating (QC): 6 (met) Oral Hygiene (QC): 6 (not met) Toileting Hygiene (QC): 6 (not met) Shower/Bathe Self (QC): 6 (not met) Upper Body Dressing (QC): 6 (not met) Lower Body Dressing (QC): 6 (not met) On/Off Footwear (QC): 6 (not met) Additional Goals: 1-Demonstrate ADL Tasks, 2-Verbalize Understanding, 3-ImproveStrength/Omari 1=Demonstrate adherence to instructed precautions during ADL tasks. 2=Patient will verbalize/demonstrate understanding of assistive devices/modifications for ADL. 3=Patient will improve strength/tolerance for activity to enable patient to perform ADL's. OT Education/Plan Problem List/Assessment Assessment: Decreased Activ Tolerance, Decreased UE Strength, Impaired Funct Balance, Impaired I ADL's, Impaired Self-Care Skills Discharge Recommendations Plan/Recommendations: Continue POC Treatment Plan/Plan of Care Patient would benefit from OT for education, treatment and training to promote independence in ADL's, mobility, safety and/or upper extremity function for ADL's. Plan of Care: ADL Retraining, Functional Mobility, Group Exercise/Act as Ind, UE Funct Exercise/Act Treatment Duration: Oct 26, 2021 Frequency: At least 5 of 7 days/Wk (IRF) Estimated Hrs Per Day: 1.5 hours per day Rehab Potential: Good Time/GCodes Start Time: 07:45 Stop Time: 09:00 Total Time Billed (hr/min): 75 Billed Treatment Time 1, ADL 5 JEWELS MCCORMICK OT Oct 22, 2021 09:10
--- NOTE | 2021-10-22 09:17 | Therapy Team Discharge Summary ---
Therapy Discharge Summary Discharge Recommendations Date of Discharge Physical Therapy Roll Left to Right (QC): 5 Sit to Lying (QC): 5 Lying to Sitting/Side of Bed(Q: 5 Sit to Stand (QC): 6 Chair/Lua-tr-Pnwyp Xfer(QC): 6 Toilet Transfer (QC): 5 Car Transfer (QC): 5 Does the Patient Walk: Yes Mode of Locomotion: Walk Anticipated Mode of Locomotion: Walk Walk 10 feet (QC): 5 Walk 50 ft with 2 Turns(QC): 5 Walk 150 ft (QC): 5 Walking 10ft on uneven surface: 5 Distance: 150' x 5 Gait Assistive Device: FWW Does the Pt Use a Wheelchair: Yes Wheel 50 ft with 2 turns (QC): 4 Wheel 150 ft (QC): 9 Type of Wheelchair: Manual #of Steps: 6 1 Step (curb) (QC): 5 4 Steps (QC): 5 12 Steps (QC): 7 Walking Assistive Device: Walker Balance Sitting Static: Normal Balance Sitting Dynamic: Normal Balance-Standing Static: Fair Picking up an Object (QC): 5 Occupational Therapy Pt admitted to ARU with debility. At [facility], pt had increased difficulty with completing self care tasks, but was able to complete herself. Upon initial evaluation, pt was independent with eating, SBA oral care, min A showering, set up upper body dressing, mod A lower body dressing, max A footwear and min A toileting. OT txs focused on increasing BUE strength and activity tolerance, and increasing safety and independence with ADLs. Pt made functional progress tow ards goals, but only met goal for eating. Pt did not make significant progress in therapy, due to initial reluctance to use AE for LE dressing, and her belief that when she gets home she will be independent, even though she wasn't at an independent level with therapy. Pt scheduled to discharge home today with HH OT and bath aide, support from [facility]. D/C from OT. Decreased Activ Tolerance, Decreased UE Strength, Impaired Funct Balance, Impaired I ADL's, Impaired Self-Care Skills Eating (QC): 6 Oral Hygiene (QC): 4 (CGA) Shower/Bathe Self (QC): 3 (Min A to wash buttocks.) Upper Body Dressing (QC): 5 (set up due to pt refusing to get clothes out of closet herself.) Lower Body Dressing (QC): 3 (Min A with threading feet.) On/Off Footwear (QC): 4 (VCs with AE.) Toileting Hygiene (QC): 3 (Min A with toilet hygiene) PT Mcc Goals Tile Molder Goals PT Tile Molder Goals Time Frame: Nov 10, 2021 Roll Left to Right (QC): 6 Sit to Lying (QC): 6 Lying-Sitting on Side/Bed(QC): 6 Sit to Stand (QC): 6 Chair/Mkk-ag-Vurhf Xfer(QC): 6 Car Transfer (QC): 6 Does the Patient Walk: Yes Walk 10 feet (QC): 6 Walk 10ft-Uneven Surface(QC): 6 Walk 50ft with 2 Turns (QC): 6 Walk 150 ft (QC): 6 Does the Pt use WC or Scooter?: No Wheel 50 feet with 2 turns (QC: 9 1 Step (curb) (QC): 4 4 Steps (QC): 4 12 Steps (QC): 4 Picking up an Object (QC): 6 OT Tile Molder Goals Mcc Goals Time Frame: Oct 26, 2021 Eating (QC): 6 (met) Oral Hygiene (QC): 6 (not met) Shower/Bathe Self (QC): 6 (not met) Upper Body Dressing (QC): 6 (not met) Lower Body Dressing (QC): 6 (not met) On/Off Footwear (QC): 6 (not met) Toileting Hygiene (QC): 6 (not met) Toilet/Commode Transfer (QC): 6 Additional Goals: 1-Demonstrate ADL Tasks, 2-Verbalize Understanding, 3- ImproveStrength/Omari 1=Demonstrate adherence to instructed precautions during ADL tasks. 2=Patient will verbalize/demonstrate understanding of assistive devices/modifications for ADL. 3=Patient will improve strength/tolerance for activity to enable patient to perform ADL's. JEWELS MCCORMICK OT Oct 22, 2021 09:17
--- NOTE | 2021-10-22 09:38 | PM&R Progress Note ---
Subjective HPI/CC On Admission Date Seen by Provider: Oct 22, 2021 Pt is an 85 y/o female who was admitted to the hospital with severe edema and cellulitis - she was admitted for treatment of the infection, and was found to be profoundly weak with need for IRF Subjective/Events-last exam 10/22/2021: Pt was ready to go home today but elevated white count of 15,000 and fever of 100 UA is normal Chest x-ray showed bilateral pleural effusion, so IS was ordered and Flagyl was ordered by PCP 10/21/2021: Doing well Ready for DC tomorrow No pain 10/20/2021: Doing very well Gaining strength No more loose stools Supportive care 10/19/2021: Pt is doing really well Discharge on Friday Elevated bp in the morning but it stabilizes throughout the day Slept really well 10/18/2021: Doing better Dressed herself Needs to work on socks and shoes Labs and UA ordered by PCP which were normal 10/17/2021: Patient doing well Edema improved No falls Pain improved Changing Questran to BID due to no BM and don't want to cause constipation 10/16/2021: Doing well Gaining strength No pain reported Loose stools improved 10/15/2021: Patient feels better Diarrhea less intense Lower extremity edema improved Vancomycin completed 10/14/2021: Patient doing well Diarrhea improved Vancomycin p.o. and Questran helping No other concerns Brian catheter discontinued 10/13/2021: Patient sleeping well Overall improving every day Gaining strength Nurses have no concerns 10/12/2021: Patient doing well No concerns Antibiotic tolerated Feels like she is getting stronger 10/11/2021: Doing better Lower extremity edema much improved Brian catheter still in place Antibiotics maintained 10/10/2021: Doing well Improved strength already Patient appears to be very debilitated and self neglected Vanc still maintained Brian cath in place for another few days due to incontinence Review of Systems General: Fatigue Musculoskeletal: leg pain Objective Exam Vital Signs Vital Signs Date Time Temp Pulse Resp B/P (MAP) Pulse Ox O2 Delivery O2 Flow Rate FiO2 10/22/21 19:58 36.9 82 22 132/69 (90) 91 Room Air Capillary Refill : General Appearance: No Apparent Distress, WD/WN, Chronically ill HEENT: PERRL/EOMI Neck: Non Tender, Supple, Carotid Bruit Respiratory: Chest Non Tender, Lungs Clear, Normal Breath Sounds, No Accessory Muscle Use, No Respiratory Distress Cardiovascular: Regular Rate, Rhythm, No Gallop, No Murmur, Normal Peripheral Pulses Gastrointestinal: Normal Bowel Sounds, No Organomegaly, Non Tender, Soft Rectal: Deferred Back: Normal Inspection, No CVA Tenderness, No Vertebral Tenderness Extremity: Non Tender, No Calf Tenderness, Pedal Edema, Swelling Neurologic/Psychiatric: Alert, Oriented x3 (see HPI on confusion), Normal Mood/Affect Skin: Normal Color, Warm/Dry, Rash (bilateral lower extremity. Improving) Lymphatic: No Adenopathy Results/Procedures Lab Laboratory Tests 10/22/21 05:20 Patient resulted labs reviewed. FIM Transfers Therapy Code Descriptions/Definitions Functional [place] Measure: 0=Not Assessed/NA 4=Minimal Assistance 1=Total Assistance 5=Supervision or Setup 2=Maximal Assistance 6=Modified [place] 3=Moderate Assistance 7=Complete IndependenceSCALE: Activities may be completed with or without assistive devices. 1-Xkcjtbxsub-bpxxaaz completes the activity by him/herself with no assistance from a helper. 5-Set-up or Clean-up Assistance-helper sets up or cleans up; patient completes activity. [place] assists only prior to or following the activity. 4-Supervision or Touching Assistance-helper provides verbal cues and/or touching/steadying and/or contact guard assistance as patient completes activity. Assistance may be provided throughout the activity or intermittently. 3-Partial/Moderate Assistance-helper does LESS THAN HALF the effort. [place] lifts, holds or supports trunk or limbs, but provides less than half the effort. 2-Substantial/Maximal Assistance-helper does MORE THAN HALF the effort. [place] lifts or holds trunk or limbs and provides more than half the effort. 3-Ydqctmdkj-syjpbe does ALL the effort. Patient does none of the effort to complete the activity. Or, the assistance of 2 or more helpers is required for the patient to complete the activity. If activity was not attempted, code reason: 7-Patient Refused. 9-Not Applicable-not attempted and the patient did not perform the activity before the current illness, exacerbation or injury. 10-Not Attempted due to Environmental Limitations-(lack of equipment, weather restraints, etc.). 88-Not Attempted due to Medical Conditions or Safety Concerns. Roll Left to Right (QC): 5 Sit to Lying (QC): 5 Sit to Stand (QC): 6 Chair/Qrj-ed-Wihmy Xfer(QC): 6 Car Transfer (QC): 5 Gait Training Does the Patient Walk?: Yes Distance: 150' Walk 10 feet (QC): 5 Walk 50 ft with 2 Turns(QC): 5 Walk 150 ft (QC): 5 Walking 10ft/uneven surface-QC: 5 Gait Persons Needed: 1 Gait Assistive Device: FWW Wheelchair Training Does the Pt Use a Wheelchair?: Yes Wheel 50 ft with 2 turns (QC): 4 Wheel 150 ft (QC): 9 Type of Wheelchair: Manual Stair Training Stair Training: Handrails/: 1 handrail, uses cane #of Steps: 6 1 Step (curb) (QC): 5 4 Steps (QC): 5 12 Steps (QC): 7 Stairs: Pattern: Step to Balance Picking up an Object (QC): 5 ADL-Treatment Eating (QC): 6 Oral Hygiene (QC): 4 Shower/Bathe Self (QC): 3 Upper Body Dressing (QC): 5 Lower Body Dressing (QC): 3 On/Off Footwear (QC): 4 Toileting Hygiene (QC): 3 Toilet Transfer (QC): 4 Assessment/Plan Assessment and Plan Assess & Plan/Chief Complaint Assessment: Debility Cellulitis lower legs on Vanc Severe lower extremity edema Hypothyroidisim Anemia Hypoalbuminemia Elevated DDimer negative Dopplers Snehal doss DC C. difficile colitis Plan: PT OT protocol Brian cath DC in 2 days Home meds Monitor closely 10/10/2021: Vanc PT OT 10/11/2021: Antibiotics Lower extremity edema management 10/12/2021: Monitor closely Complete antibiotics Wrap legs 10/13/2021: Complete antibiotics Supportive care 10/14/2021: C. difficile treatment Supportive care 10/15/2021: Continue Zofran and vancomycin p.o. 10/16/2021: Improved stools 10/17/2021: Questran change to prn BID 10/18/2021: Monitor closely 10/19/2021: Continue vanc PO 10/20/2021: Continue treatment plan 10/21/2021: DC tomorrow 10/22/2021: Monitor closely (1) Immobility Status: Acute (2) Cellulitis Status: Acute (3) Lower extremity edema Status: Acute (4) Hypothyroidism Status: Acute MOLLY MUIR DO Oct 22, 2021 09:38
--- NOTE | 2021-10-22 10:01 | Diagnostic Imaging Report ---
Indication: Fever. Time of Exam: 9:44 AM Comparison is made with prior chest from 10/06/2021. Heart size is stable. Lungs appear to be fairly clear. No significant infiltrate is seen. There is some blunting of the costophrenic angles bilaterally which could indicate minimal pleural fluid. No pneumothorax. Impression: Trace pleural fluid bilaterally. The study is otherwise unremarkable. Dictated by: Dictated on workstation # [id number]
[2021-10-22 10:08] LABS: BILIRUBIN,URINE NEGATIVE (NEGATIVE); CLARITY,URINE CLEAR; COLOR,URINE YELLOW; GLUCOSE, URINE (UA) TRACE (NEGATIVE); KETONES,URINE NEGATIVE (NEGATIVE); LEUKOCYTE ESTERASE ,URINE NEGATIVE (NEGATIVE); NITRITE,URINE NEGATIVE (NEGATIVE); PROTEIN,URINE NEGATIVE (NEGATIVE)
[2021-10-22 10:17] LABS: BACTERIA,URINE NEGATIVE /HPF
[2021-10-22 12:37] VITALS: BP 175/85
[2021-10-22] MEDS: metroNIDAZOLE 500 MG (FLAGYL) TAB PO SCH ×2 (13:32→21:17)
--- NOTE | 2021-10-22 13:39 | Occ Therapy Progress Note ---
Therapy Progress Note Pt scheduled to discharge on this date, but due to medical issues pt's discharge is on hold. OT completed 75 mins this AM to obtain QC scores, but due to pt's scheduled discharge, pt was not seen for civil preparedness officer today. OT will continue with treatments tomorrow unless pt discharges. JEWELS MCCORMICK OT Oct 22, 2021 13:39
--- NOTE | 2021-10-22 15:23 | Physical Therapy Progress Note ---
Therapy Progress Note Patient was set to discharge from this facility today but that was put on hold due to medial issues and PT was not able to be performed due to these medical issues. PT will be resumed tomorrow if appropriate. DIAMANTE CANALES PT Oct 22, 2021 15:23
[2021-10-22 16:09] VITALS: BP 158/73
[2021-10-22 19:58] VITALS: BP 132/69
[2021-10-22] MEDS: LOSARTAN 25 MG (COZAAR) TAB PO SCH (21:17)
[2021-10-22] MEDS: MELATONIN 3 MG TABLET PO SCH (21:17)
--- NOTE | 2021-10-23 05:53 | PM&R Progress Note ---
Subjective HPI/CC On Admission Date Seen by Provider: Oct 23, 2021 Time Seen by Provider: 12:30 Pt is an 85 y/o female who was admitted to the hospital with severe edema and cellulitis - she was admitted for treatment of the infection, and was found to be profoundly weak with need for IRF Subjective/Events-last exam 10/23/2021: 10/22/2021: Pt was ready to go home today but elevated white count of 15,000 and fever of 100 UA is normal Chest x-ray showed bilateral pleural effusion, so IS was ordered and Flagyl was ordered by PCP 10/21/2021: Doing well Ready for DC tomorrow No pain 10/20/2021: Doing very well Gaining strength No more loose stools Supportive care 10/19/2021: Pt is doing really well Discharge on Friday Elevated bp in the morning but it stabilizes throughout the day Slept really well 10/18/2021: Doing better Dressed herself Needs to work on socks and shoes Labs and UA ordered by PCP which were normal 10/17/2021: Patient doing well Edema improved No falls Pain improved Changing Questran to BID due to no BM and don't want to cause constipation 10/16/2021: Doing well Gaining strength No pain reported Loose stools improved 10/15/2021: Patient feels better Diarrhea less intense Lower extremity edema improved Vancomycin completed 10/14/2021: Patient doing well Diarrhea improved Vancomycin p.o. and Questran helping No other concerns Brian catheter discontinued 10/13/2021: Patient sleeping well Overall improving every day Gaining strength Nurses have no concerns 10/12/2021: Patient doing well No concerns Antibiotic tolerated Feels like she is getting stronger 10/11/2021: Doing better Lower extremity edema much improved Brina catheter still in place Antibiotics maintained 10/10/2021: Doing well Improved strength already Patient appears to be very debilitated and self neglected Vanc still maintained Brian cath in place for another few days due to incontinence Review of Systems General: Fatigue, Malaise Objective Exam Vital Signs Vital Signs Date Time Temp Pulse Resp B/P (MAP) Pulse Ox O2 Delivery O2 Flow Rate FiO2 10/23/21 07:41 36.5 79 16 170/79 (109) 97 Room Air Capillary Refill : General Appearance: No Apparent Distress, WD/WN, Chronically ill HEENT: PERRL/EOMI Neck: Non Tender, Supple, Carotid Bruit Respiratory: Chest Non Tender, Lungs Clear, Normal Breath Sounds, No Accessory Muscle Use, No Respiratory Distress Cardiovascular: Regular Rate, Rhythm, No Gallop, No Murmur, Normal Peripheral Pulses Gastrointestinal: Normal Bowel Sounds, No Organomegaly, Non Tender, Soft Rectal: Deferred Back: Normal Inspection, No CVA Tenderness, No Vertebral Tenderness Extremity: Non Tender, No Calf Tenderness, Pedal Edema, Swelling Neurologic/Psychiatric: Alert, Oriented x3 (see HPI on confusion), Normal Mood/Affect Skin: Normal Color, Warm/Dry, Rash (bilateral lower extremity. Improving) Lymphatic: No Adenopathy Results/Procedures Lab Laboratory Tests 10/23/21 05:45 Patient resulted labs reviewed. FIM Transfers Therapy Code Descriptions/Definitions Functional [place] Measure: 0=Not Assessed/NA 4=Minimal Assistance 1=Total Assistance 5=Supervision or Setup 2=Maximal Assistance 6=Modified [place] 3=Moderate Assistance 7=Complete IndependenceSCALE: Activities may be completed with or without assistive devices. 8-Ypsjwfmblc-gurswvg completes the activity by him/herself with no assistance from a helper. 5-Set-up or Clean-up Assistance-helper sets up or cleans up; patient completes activity. [place] assists only prior to or following the activity. 4-Supervision or Touching Assistance-helper provides verbal cues and/or touching/steadying and/or contact guard assistance as patient completes activity. Assistance may be provided throughout the activity or intermittently. 3-Partial/Moderate Assistance-helper does LESS THAN HALF the effort. [place] lifts, holds or supports trunk or limbs, but provides less than half the effort. 2-Substantial/Maximal Assistance-helper does MORE THAN HALF the effort. [place] lifts or holds trunk or limbs and provides more than half the effort. 1-Sdimawpkv-rhzask does ALL the effort. Patient does none of the effort to complete the activity. Or, the assistance of 2 or more helpers is required for the patient to complete the activity. If activity was not attempted, code reason: 7-Patient Refused. 9-Not Applicable-not attempted and the patient did not perform the activity before the current illness, exacerbation or injury. 10-Not Attempted due to Environmental Limitations-(lack of equipment, weather restraints, etc.). 88-Not Attempted due to Medical Conditions or Safety Concerns. Roll Left to Right (QC): 5 Sit to Lying (QC): 5 Sit to Stand (QC): 6 Chair/Vvy-kf-Povhm Xfer(QC): 6 Car Transfer (QC): 5 Gait Training Does the Patient Walk?: Yes Distance: 150' Walk 10 feet (QC): 5 Walk 50 ft with 2 Turns(QC): 5 Walk 150 ft (QC): 5 Walking 10ft/uneven surface-QC: 5 Gait Persons Needed: 1 Gait Assistive Device: FWW Wheelchair Training Does the Pt Use a Wheelchair?: Yes Wheel 50 ft with 2 turns (QC): 4 Wheel 150 ft (QC): 9 Type of Wheelchair: Manual Stair Training Stair Training: Handrails/: 1 handrail, uses cane #of Steps: 6 1 Step (curb) (QC): 5 4 Steps (QC): 5 12 Steps (QC): 7 Stairs: Pattern: Step to Balance Picking up an Object (QC): 5 ADL-Treatment Eating (QC): 6 Oral Hygiene (QC): 4 Shower/Bathe Self (QC): 3 Upper Body Dressing (QC): 5 Lower Body Dressing (QC): 3 On/Off Footwear (QC): 4 Toileting Hygiene (QC): 3 Toilet Transfer (QC): 4 Assessment/Plan Assessment and Plan Assess & Plan/Chief Complaint Assessment: Debility Cellulitis lower legs on Vanc Severe lower extremity edema Hypothyroidisim Anemia Hypoalbuminemia Elevated DDimer negative Dopplers Snehal doss DC C. difficile colitis Plan: PT OT protocol Snehal doss DC in 2 days Home meds Monitor closely 10/10/2021: Vanc PT OT 10/11/2021: Antibiotics Lower extremity edema management 10/12/2021: Monitor closely Complete antibiotics Wrap legs 10/13/2021: Complete antibiotics Supportive care 10/14/2021: C. difficile treatment Supportive care 10/15/2021: Continue Zofran and vancomycin p.o. 10/16/2021: Improved stools 10/17/2021: Questran change to prn BID 10/18/2021: Monitor closely 10/19/2021: Continue vanc PO 10/20/2021: Continue treatment plan 10/21/2021: DC tomorrow 10/22/2021: Monitor closely 10/23/2021: (1) Immobility Status: Acute (2) Cellulitis Status: Acute Qualifiers: Laterality: right Qualified Codes: L03.115 - Cellulitis of right lower limb (3) Lower extremity edema Status: Acute (4) Hypothyroidism Status: Acute MOLLY MUIR DO Oct 23, 2021 05:53
[2021-10-23 05:57] LABS: BASOPHILS % (AUTO) 0 % (0-10); EOSINOPHILS # (AUTO) 0.2 10^3/uL (0.0-0.3); EOSINOPHILS % (AUTO) 1 % (0-10); HEMATOCRIT 27 % (35-52); HEMOGLOBIN 8.6 g/dL (11.5-16.0); LYMPHOCYTES # (AUTO) 2.2 10^3/uL (1.0-4.0); LYMPHOCYTES % (AUTO) 18 % (12-44); MEAN CORPUSCULAR HEMOGLOBIN 31 pg (25-34); MEAN CORPUSCULAR HGB CONC 32 g/dL (32-36); MEAN CORPUSCULAR VOLUME 96 fL (80-99); MEAN PLATELET VOLUME 8.8 fL (9.0-12.2); MONOCYTES # (AUTO) 1.1 10^3/uL (0.0-1.0); MONOCYTES % (AUTO) 9 % (0-12); NEUTROPHILS # (AUTO) 8.8 10^3/uL (1.8-7.8); NEUTROPHILS % (AUTO) 71 % (42-75); PLATELET COUNT 443 10^3/uL (130-400); WHITE BLOOD COUNT 12.5 10^3/uL (4.3-11.0)
[2021-10-23 06:22] LABS: ALBUMIN 2.6 GM/DL (3.2-4.5); POTASSIUM 3.8 MMOL/L (3.6-5.0)
[2021-10-23 06:24] LABS: CALCIUM 8.5 MG/DL (8.5-10.1)
[2021-10-23 06:27] LABS: BILIRUBIN,TOTAL 0.4 MG/DL (0.1-1.0)
[2021-10-23 06:28] LABS: CREATININE SERUM 0.86 MG/DL (0.60-1.30)
[2021-10-23] MEDS: FUROSEMIDE 20 MG (LASIX) TAB PO SCH (06:32)
[2021-10-23] MEDS: LEVOTHYROXINE 88 MCG (LEVOTHORID) TAB PO SCH (06:32)
[2021-10-23] MEDS: KCL 20 MEQ TAB (K-DUR) PO SCH (06:32)
[2021-10-23 07:41] VITALS: BP 170/79
[2021-10-23] MEDS: SYSTANE EYE DROPS OU SCH (09:00)
[2021-10-23] MEDS: AREDS PO SCH (09:00)
--- NOTE | 2021-10-23 09:12 | Progress Note ---
Subjective Subjective Date Seen by Provider: Oct 23, 2021 Time Seen by Provider: 09:00 PT SEEN ON INPT REHAB, WITH THERAPIST WALKING PT IN THE ANG AND UP AND DOWN STAIRS IN THE THERAPY UNIT. SHE STATES THAT SHE IS READY TO GO HOME, THERAPY STATES THAT SHE IS STRONGER THAN ON ADMISSION TO INPATIENT REHAB, PT IS DETERMINED TO GO HOME, SHE IS RELUCTANT TO COME TO THE OFFICE IN A WEEK FROM DISCHARGE DUE TO MOBILITY AND INABILITY TO DRIVE AT THIS TIME. Review of Systems General: Fatigue, Malaise, Other (FEVER UP TO 38.5 IN THE PAST 48 HOURS) HEENT: No Head Aches, No Visual Changes Pulmonary: No Dyspnea, No Cough Cardiovascular: Edema Gastrointestinal: No: Nausea, Vomiting Genitourinary: No Dysuria, No Frequency Musculoskeletal: leg pain Neurological: Weakness (improving); No: Change in speech, Confusion All Other Systems Reviewed All Other Systems Reviewed: Yes Objective Exam Vital Signs Vital Signs Date Time Temp Pulse Resp B/P (MAP) Pulse Ox O2 Delivery O2 Flow Rate FiO2 10/23/21 07:41 36.5 79 16 170/79 (109) 97 Room Air 10/22/21 20:20 Room Air 10/22/21 19:58 36.9 82 22 132/69 (90) 91 Room Air 10/22/21 18:38 36.2 10/22/21 18:27 37.5 10/22/21 16:09 38.5 95 20 158/73 (101) 94 Room Air 10/22/21 12:37 38.0 175/85 (115) 10/22/21 11:39 Room Air 10/22/21 09:59 Room Air General Appearance: No Apparent Distress, WD/WN, Chronically ill HEENT: PERRL/EOMI Neck: Non Tender, Supple, Carotid Bruit Respiratory: Chest Non Tender, Lungs Clear, Normal Breath Sounds, No Accessory Muscle Use, No Respiratory Distress Cardiovascular: Regular Rate, Rhythm, No Gallop, No Murmur, Normal Peripheral Pulses Gastrointestinal: Normal Bowel Sounds, No Organomegaly, Non Tender, Soft Rectal: Deferred Back: Normal Inspection, No CVA Tenderness, No Vertebral Tenderness Extremity: Non Tender, No Calf Tenderness, Pedal Edema, Swelling Neurologic/Psychiatric: Alert, Oriented x3, Normal Mood/Affect Skin: Normal Color, Warm/Dry, Rash (bilateral lower extremity. Improving) Lymphatic: No Adenopathy Results Lab Laboratory Tests 10/22/21 09:49: Urine Color YELLOW, Urine Clarity CLEAR, Urine pH 6.0, Urine Specific [place] 1.010L, Urine Protein NEGATIVE, Urine Glucose (UA) TRACEH, Urine Ketones NEGATIVE, Urine Nitrite NEGATIVE, Urine Bilirubin NEGATIVE, Urine Urobilinogen 0.2, Urine Leukocyte Esterase NEGATIVE, Urine RBC (Auto) NEGATIVE, Urine RBC NONE, Urine WBC NONE, Urine Squamous Epithelial Cells NONE, Urine Crystals NONE, Urine Bacteria NEGATIVE, Urine Casts NONE, Urine Mucus NEGATIVE, Urine Culture Indicated NO 10/23/21 05:45: White Blood Count 12.5H, Red Blood Count 2.80L, Hemoglobin 8.6L, Hematocrit 27L, Mean Corpuscular Volume 96, Mean Corpuscular Hemoglobin 31, Mean Corpuscular Hemoglobin Concent 32, Red Cell Distribution Width 18.4H, Platelet Count 443H, Mean Platelet Volume 8.8L, Immature Granulocyte % (Auto) 1, Neutrophils (%) (Auto) 71, Lymphocytes (%) (Auto) 18, Monocytes (%) (Auto) 9, Eosinophils (%) (Auto) 1, Basophils (%) (Auto) 0, Neutrophils # (Auto) 8.8H, Lymphocytes # (Auto) 2.2, Monocytes # (Auto) 1.1H, Eosinophils # (Auto) 0.2, Basophils # (Auto) 0.0, Immature Granulocyte # (Auto) 0.1, Sodium Level 135, Potassium Level 3.8, Chloride Level 104, Carbon Dioxide Level 26, Anion Gap 5, Blood Urea Nitrogen 23H, Creatinine 0.86, Estimat Glomerular Filtration Rate 67, BUN/Creatinine Ratio 27, Glucose Level 100, Calcium Level 8.5, Corrected Calcium 9.6, Total Bilirubin 0.4, Aspartate Amino Transf (AST/SGOT) 19, Alanine Aminotransferase (ALT/SGPT) 28, Alkaline Phosphatase 59, Total Protein 6.0L, Albumin 2.6L Microbiology 10/20/21 C. difficile GDH Antigen & Toxins - Final, Complete AMBER PAULINO MD Oct 23, 2021 09:12
[2021-10-23] MEDS ORDERED: METR-145 PO (09:15)
--- NOTE | 2021-10-23 09:38 | Physical Therapy Daily Note ---
PT Daily Note-Current Subjective Patient sitting in the chair upon PT arrival, agreeable to treatment. Rates pain at 0/10 currently. Reports she needs her legs wrapped. Nurse notified, patient will be showering this morning with OT. LE wraps left off at this time. Mental Status Patient Orientation: Person, Place, Time, Situation Transfers SCALE: Activities may be completed with or without assistive devices. 3-Ovqaasrdmg-osyhfkx completes the activity by him/herself with no assistance from a helper. 5-Set-up or Clean-up Assistance-helper sets up or cleans up; patient completes activity. [place] assists only prior to or following the activity. 4-Supervision or Touching Assistance-helper provides verbal cues and/or touching/steadying and/or contact guard assistance as patient completes activity. Assistance may be provided throughout the activity or intermittently. 3-Partial/Moderate Assistance-helper does LESS THAN HALF the effort. [place] lifts, holds or supports trunk or limbs, but provides less than half the effort. 2-Substantial/Maximal Assistance-helper does MORE THAN HALF the effort. [place] lifts or holds trunk or limbs and provides more than half the effort. 4-Afvgujxcz-bwmomp does ALL the effort. Patient does none of the effort to complete the activity. Or, the assistance of 2 or more helpers is required for the patient to complete the activity. If activity was not attempted, code reason: 7-Patient Refused. 9-Not Applicable-not attempted and the patient did not perform the activity before the current illness, exacerbation or injury. 10-Not Attempted due to Environmental Limitations-(lack of equipment, weather restraints, etc.). 88-Not Attempted due to Medical Conditions or Safety Concerns. Roll Left & Right (QC): 6 Sit to Lying (QC): 6 Lying to Sitting/Side of Bed(Q: 6 Sit to Stand (QC): 6 Chair/Vsg-kq-Rckee Xfer(QC): 6 Toilet Transfer (QC): 6 Car Transfer (QC): 6 Weight Bearing Full Weight Bearing Full Weight Bearing Gait Training Does the Patient Walk?: Yes Distance: 170 Walk 10 feet (QC): 6 Walk 50 ft with 2 Turns(QC): 6 Walk 150 ft (QC): 4 Walking 10ft/uneven surface-QC: 6 Gait Assistive Device: FWW Wheelchair Training Does the Pt Use a Wheelchair?: No Stair Training Stair Training: Handrails/: 1 handrail #of Steps: 12 1 Step (curb) (QC): 6 4 Steps (QC): 6 12 Steps (QC): 4 Stairs: Pattern: Step to Balance Picking up an Object (QC): 6 Assessment Current Status: Good Progress Patient tolerate treatment well. She demonstrates I with all transfers, as long as the chair she was sitting in had arm rests. Patient ambulates 170 feet with SBA/I, with FWW, and verbal cues towards the end for posture and conservation of energy. Patient performs all functional activities as listed above including ascending/descending steps with left handrail ascending and quad cane in right UE. She requires additional assistance as she progresses to 12 steps, however was able to safely perform without any sitting rest breaks. She did perform to standing breaks, however this was not requested by the patient and was performed due to the physician discussing her plan of care with the patient. Patient in chair post treatment with all needs met, nursing notified, call light in reach and patients software installer entering the room upon PT departure. PT Residential Goals Residential Goals PT Port Traffic Manager Goals Time Frame: Nov 10, 2021 Roll Left & Right (QC): 6 (MET) Sit to Lying (QC): 6 (MET) Lying-Sitting on Side/Bed(QC): 6 (MET) Sit to Stand (QC): 6 (MET) Chair/Xyg-mo-Gqeuq Xfer(QC): 6 (MET) Toilet Transfer (QC): 6 (MET) Car Transfer (QC): 6 (MET) Does the Patient Walk: Yes Walk 10 feet (QC): 6 (MET) Walk 50ft with 2 Turns (QC): 6 Walk 150 ft (QC): 6 Walking 10ft on Uneven Surface: 6 (MET) 1 Step (curb) (QC): 4 (MET) 4 Steps (QC): 4 (MET) 12 Steps (QC): 4 (MET) Picking up an Object (QC): 6 Does the Pt use WC or Scooter?: No Wheel 50 feet with 2 turns (QC: 9 Type: N/A Wheel 150 feet: 9 Type: N/A PT Plan Treatment/Plan Treatment Plan: Continue Plan of Care Treatment Plan: Bed Mobility, Concurrent Therapy, Education, Functional Activity [place], Functional Strength, Group Therapy, Gait, Safety, Therapeutic Exercise, Transfers Treatment Duration: Nov 10, 2021 Frequency: At least 5 of 7 days/Wk (IRF) Estimated Hrs Per Day: 1.5 hours per day Patient and/or Family Agrees t: Yes Safety Risks/Education Patient Education: Gait Training, Transfer Techniques Teaching Recipient: Patient Teaching Methods: Demonstration, Discussion Time/GCodes Time In: 820 Time Out: 920 Total Billed Treatment Time: 60 Total Billed Treatment Visit, BABITA [place] (3) LUCIANO NÚÑEZ PT Oct 23, 2021 09:38
--- NOTE | 2021-10-23 10:05 | Discharge Summary ---
Diagnosis/Chief Complaint Date of Admission Oct 09, 2021 at 09:39 Date of Discharge Discharge Date: Oct 23, 2021 Discharge Diagnosis Assessment: Debility Cellulitis lower legs on Vanc Severe lower extremity edema Hypothyroidisim Anemia Hypoalbuminemia Elevated DDimer negative Dopplers Brian cath DC C. difficile colitis Plan: PT OT protocol Brian cath DC in 2 days Home meds Monitor closely 10/10/2021: Vanc PT OT 10/11/2021: Antibiotics Lower extremity edema management 10/12/2021: Monitor closely Complete antibiotics Wrap legs 10/13/2021: Complete antibiotics Supportive care 10/14/2021: C. difficile treatment Supportive care 10/15/2021: Continue Zofran and vancomycin p.o. 10/16/2021: Improved stools 10/17/2021: Questran change to prn BID 10/18/2021: Monitor closely 10/19/2021: Continue vanc PO 10/20/2021: Continue treatment plan 10/21/2021: DC tomorrow 10/22/2021: Monitor closely (1) Immobility Status: Acute (2) Cellulitis Status: Acute (3) Lower extremity edema Status: Acute (4) Hypothyroidism Status: Acute Discharge Summary Discharge Physical Examination Allergies: Coded Allergies: No Known Drug Allergies (Unverified , 10/06/21) Vitals & I&Os Vital Signs Date Time Temp Pulse Resp B/P (MAP) Pulse Ox O2 Delivery O2 Flow Rate FiO2 10/23/21 14:30 36.5 79 16 170/79 97 Room Air Hospital Course Was the Problem List Reviewed?: Yes Stabdard course after admitted from 4th floor for edema and cellulitis of the lower legs and then was dx with C diff colitis and treated with Vanc PO with good results. Labs remained stable but did have a low grade fever and elevated wbc at 15k delaying DC by 1 day but PCP evaluated the CXR to have pleural effusions so IS initiated and labs normalized the next day and she was DC. She participated in all therapies and was ready to live independently. Labs (last 24 hrs) Laboratory Tests 10/09/21 09:39: Lab Scanned Report Referred Lab Report 10/10/21 09:18: White Blood Count 12.5H, Red Blood Count 3.40L, Hemoglobin 10.3L, Hematocrit 33L , Mean Corpuscular Volume 98, Mean Corpuscular Hemoglobin 30, Mean Corpuscular Hemoglobin Concent 31L, Red Cell Distribution Width 20.3H, Platelet Count 461H, Mean Platelet Volume 8.9L, Immature Granulocyte % (Auto) 1, Neutrophils (%) (Auto) 71, Lymphocytes (%) (Auto) 16, Monocytes (%) (Auto) 10, Eosinophils (%) (Auto) 3, Basophils (%) (Auto) 0, Neutrophils # (Auto) 8.9H, Lymphocytes # (Auto) 1.9, Monocytes # (Auto) 1.2H, Eosinophils # (Auto) 0.3, Basophils # (Auto) 0.1, Immature Granulocyte # (Auto) 0.1, Sodium Level 137, Potassium Level 3.7, Chloride Level 97L, Carbon Dioxide Level 28, Anion Gap 12, Blood Urea Nitrogen 25H, Creatinine 1.21, Estimat Glomerular Filtration Rate 44, BUN/Creatinine Ratio 21, Glucose Level 121H, Calcium Level 8.5, Corrected Calcium 9.4, Total Bilirubin 0.3, Aspartate Amino Transf (AST/SGOT) 32, Alanine Aminotransferase (ALT/SGPT) 25, Alkaline Phosphatase 66, Total Protein 6.6, Albumin 2.9L, Vancomycin Level Trough 12.6 10/13/21 05:23: White Blood Count 8.8, Red Blood Count 2.74L, Hemoglobin 8.4L, Hematocrit 27L, Mean Corpuscular Volume 97, Mean Corpuscular Hemoglobin 31, Mean Corpuscular Hemoglobin Concent 32, Red Cell Distribution Width 20.2H, Platelet Count 370, Mean Platelet Volume 9.4, Sodium Level 138, Potassium Level 4.1, Chloride Level 102, Carbon Dioxide Level 27, Anion Gap 9, Blood Urea Nitrogen 26H, Creatinine 0.82, Estimat Glomerular Filtration Rate 71, BUN/Creatinine Ratio 32, Glucose Level 99, Calcium Level 8.2L, Corrected Calcium 9.4, Total Bilirubin 0.3, Aspartate Amino Transf (AST/SGOT) 35H, Alanine Aminotransferase (ALT/SGPT) 36, Alkaline Phosphatase 59, Total Protein 5.5L, Albumin 2.5L 10/15/21 05:12: White Blood Count 8.9, Red Blood Count 2.71L, Hemoglobin 8.3L, Hematocrit 26L, Mean Corpuscular Volume 96, Mean Corpuscular Hemoglobin 31, Mean Corpuscular Hemoglobin Concent 32, Red Cell Distribution Width 19.5H, Platelet Count 395, Mean Platelet Volume 9.2, Immature Granulocyte % (Auto) 1, Neutrophils (%) (Auto) 55, Lymphocytes (%) (Auto) 20, Monocytes (%) (Auto) 16H, Eosinophils (%) (Auto) 7, Basophils (%) (Auto) 1, Neutrophils # (Auto) 4.9, Lymphocytes # (Auto) 1.8, Monocytes # (Auto) 1.4H, Eosinophils # (Auto) 0.6H, Basophils # (Auto) 0.1, Immature Granulocyte # (Auto) 0.1, Sodium Level 139, Potassium Level 4.1, Chloride Level 105, Carbon Dioxide Level 24, Anion Gap 10, Blood Urea Nitrogen 27H, Creatinine 0.98, Estimat Glomerular Filtration Rate 57, BUN/Creatinine Ratio 28, Glucose Level 98, Calcium Level 8.0L, Corrected Calcium 9.2, Total Bilirubin 0.4, Aspartate Amino Transf (AST/SGOT) 22, Alanine Aminotransferase (ALT/SGPT) 28, Alkaline Phosphatase 62, Total Protein 5.4L, Albumin 2.5L 10/18/21 09:35: White Blood Count 9.7, Red Blood Count 3.12L, Hemoglobin 9.6L, Hematocrit 31L, Mean Corpuscular Volume 99, Mean Corpuscular Hemoglobin 31, Mean Corpuscular Hemoglobin Concent 31L, Red Cell Distribution Width 19.2H, Platelet Count 475H, Mean Platelet Volume 9.0, Sodium Level 137, Potassium Level 3.7, Chloride Level 101, Carbon Dioxide Level 29, Anion Gap 7, Blood Urea Nitrogen 25H, Creatinine 0.94, Estimat Glomerular Filtration Rate 60, BUN/Creatinine Ratio 27, Glucose Level 132H, Calcium Level 8.5, Magnesium Level 2.2 10/18/21 11:40: Urine Color YELLOW, Urine Clarity CLEAR, Urine pH 6.5, Urine Specific [place] <=1.005, Urine Protein NEGATIVE, Urine Glucose (UA) NEGATIVE, Urine Ketones NEGATIVE, Urine Nitrite NEGATIVE, Urine Bilirubin NEGATIVE, Urine Urobilinogen 0.2, Urine Leukocyte Esterase NEGATIVE, Urine RBC (Auto) NEGATIVE, Urine RBC NONE, Urine WBC NONE, Urine Squamous Epithelial Cells NONE, Urine Crystals NONE, Urine Bacteria NEGATIVE, Urine Casts NONE, Urine Mucus NEGATIVE, Urine Culture Indicated NO 10/22/21 05:20: White Blood Count 15.2H, Red Blood Count 2.91L, Hemoglobin 9.0L, Hematocrit 28L, Mean Corpuscular Volume 98, Mean Corpuscular Hemoglobin 31, Mean Corpuscular Hemoglobin Concent 32, Red Cell Distribution Width 18.6H, Platelet Count 492H, Mean Platelet Volume 9.2, Sodium Level 138, Potassium Level 4.1, Chloride Level 104, Carbon Dioxide Level 23, Anion Gap 11, Blood Urea Nitrogen 28H, Creatinine 0.97, Estimat Glomerular Filtration Rate 58, BUN/Creatinine Ratio 29, Glucose Level 117H, Calcium Level 8.8, Immature Granulocyte % (Auto) 1, Neutrophils (%) (Auto) 78H, Lymphocytes (%) (Auto) 13, Monocytes (%) (Auto) 6, Eosinophils (%) (Auto) 1, Basophils (%) (Auto) 0, Neutrophils # (Auto) 11.8H, Lymphocytes # (Auto) 2.0, Monocytes # (Auto) 1.0, Eosinophils # (Auto) 0.2, Basophils # (Auto) 0.1, Immature Granulocyte # (Auto) 0.1, Corrected Calcium 9.8, Total Bilirubin 0.3, Aspartate Amino Transf (AST/SGOT) 27, Alanine Aminotransferase (ALT/SGPT) 30, Alkaline Phosphatase 60, Total Protein 6.0L, Albumin 2.7L 10/22/21 06:54: Procalcitonin 0.11H 10/22/21 09:49: Urine Color YELLOW, Urine Clarity CLEAR, Urine pH 6.0, Urine Specific [place] 1.010L, Urine Protein NEGATIVE, Urine Glucose (UA) TRACEH, Urine Ketones NEGATIVE, Urine Nitrite NEGATIVE, Urine Bilirubin NEGATIVE, Urine Urobilinogen 0.2, Urine Leukocyte Esterase NEGATIVE, Urine RBC (Auto) NEGATIVE, Urine RBC NONE, Urine WBC NONE, Urine Squamous Epithelial Cells NONE, Urine Crystals NONE, Urine Bacteria NEGATIVE, Urine Casts NONE, Urine Mucus NEGATIVE, Urine Culture Indicated NO 10/23/21 05:45: White Blood Count 12.5H, Red Blood Count 2.80L, Hemoglobin 8.6L, Hematocrit 27L, Mean Corpuscular Volume 96, Mean Corpuscular Hemoglobin 31, Mean Corpuscular Hemoglobin Concent 32, Red Cell Distribution Width 18.4H, Platelet Count 443H, Mean Platelet Volume 8.8L, Immature Granulocyte % (Auto) 1, Neutrophils (%) (Auto) 71, Lymphocytes (%) (Auto) 18, Monocytes (%) (Auto) 9, Eosinophils (%) (Auto) 1, Basophils (%) (Auto) 0, Neutrophils # (Auto) 8.8H, Lymphocytes # (Auto) 2.2, Monocytes # (Auto) 1.1H, Eosinophils # (Auto) 0.2, Basophils # (Auto) 0.0, Immature Granulocyte # (Auto) 0.1, Sodium Level 135, Potassium Level 3.8, Chloride Level 104, Carbon Dioxide Level 26, Anion Gap 5, Blood Urea Nitrogen 23H, Creatinine 0.86, Estimat Glomerular Filtration Rate 67, BUN/ Creatinine Ratio 27, Glucose Level 100, Calcium Level 8.5, Corrected Calcium 9.6, Total Bilirubin 0.4, Aspartate Amino Transf (AST/SGOT) 19, Alanine Aminotransferase (ALT/SGPT) 28, Alkaline Phosphatase 59, Total Protein 6.0L, Albumin 2.6L Microbiology 10/20/21 C. difficile GDH Antigen & Toxins - Final, Complete Pending Labs Microbiology Date/Time Source Procedure Growth Status 10/20/21 10:21 Stool C. difficile GDH Antigen & Toxins - Final Complete 10/12/21 08:00 Stool C. difficile DNA Amplification - Final Complete 10/12/21 08:00 Stool C. difficile GDH Antigen & Toxins - Final Complete Laboratory Tests 10/09/21 09:39: Lab Scanned Report Referred Lab Report 10/10/21 09:18: White Blood Count 12.5, Red Blood Count 3.40, Hemoglobin 10.3, Hematocrit 33, Mean Corpuscular Volume 98, Mean Corpuscular Hemoglobin 30, Mean Corpuscular Hemoglobin Concent 31, Red Cell Distribution Width 20.3, Platelet Count 461, Mean Platelet Volume 8.9, Immature Granulocyte % (Auto) 1, Neutrophils (%) (Auto) 71, Lymphocytes (%) (Auto) 16, Monocytes (%) (Auto) 10, Eosinophils (%) (Auto) 3, Basophils (%) (Auto) 0, Neutrophils # (Auto) 8.9, Lymphocytes # (Auto) 1.9, Monocytes # (Auto) 1.2, Eosinophils # (Auto) 0.3, Basophils # (Auto) 0.1, Immature Granulocyte # (Auto) 0.1, Sodium Level 137, Potassium Level 3.7, Chloride Level 97, Carbon Dioxide Level 28, Anion Gap 12, Blood Urea Nitrogen 25, Creatinine 1.21, Estimat Glomerular Filtration Rate 44, BUN/Creatinine Ratio 21, Glucose Level 121, Calcium Level 8.5, Corrected Calcium 9.4, Total Bilirubin 0.3, Aspartate Amino Transf (AST/SGOT) 32, Alanine Aminotransferase (ALT/SGPT) 25, Alkaline Phosphatase 66, Total Protein 6.6, Albumin 2.9, Vancomycin Level Trough 12.6 10/13/21 05:23: White Blood Count 8.8, Red Blood Count 2.74, Hemoglobin 8.4, Hematocrit 27, Mean Corpuscular Volume 97, Mean Corpuscular Hemoglobin 31, Mean Corpuscular Hemoglobin Concent 32, Red Cell Distribution Width 20.2, Platelet Count 370, Mean Platelet Volume 9.4, Sodium Level 138, Potassium Level 4.1, Chloride Level 102, Carbon Dioxide Level 27, Anion Gap 9, Blood Urea Nitrogen 26, Creatinine 0. 82, Estimat Glomerular Filtration Rate 71, BUN/Creatinine Ratio 32, Glucose Level 99, Calcium Level 8.2, Corrected Calcium 9.4, Total Bilirubin 0.3, Aspartate Amino Transf (AST/SGOT) 35, Alanine Aminotransferase (ALT/SGPT) 36, Alkaline Phosphatase 59, Total Protein 5.5, Albumin 2.5 10/15/21 05:12: White Blood Count 8.9, Red Blood Count 2.71, Hemoglobin 8.3, Hematocrit 26, Mean Corpuscular Volume 96, Mean Corpuscular Hemoglobin 31, Mean Corpuscular Hemoglobin Concent 32, Red Cell Distribution Width 19.5, Platelet Count 395, Mean Platelet Volume 9.2, Immature Granulocyte % (Auto) 1, Neutrophils (%) (Auto) 55, Lymphocytes (%) (Auto) 20, Monocytes (%) (Auto) 16, Eosinophils (%) (Auto) 7, Basophils (%) (Auto) 1, Neutrophils # (Auto) 4.9, Lymphocytes # (Auto) 1.8, Monocytes # (Auto) 1.4, Eosinophils # (Auto) 0.6, Basophils # (Auto) 0.1, Immature Granulocyte # (Auto) 0.1, Sodium Level 139, Potassium Level 4.1, Chloride Level 105, Carbon Dioxide Level 24, Anion Gap 10, Blood Urea Nitrogen 27, Creatinine 0.98, Estimat Glomerular Filtration Rate 57, BUN/Creatinine Ratio 28, Glucose Level 98, Calcium Level 8.0, Corrected Calcium 9.2, Total Bilirubin 0.4, Aspartate Amino Transf (AST/SGOT) 22, Alanine Aminotransferase (ALT/SGPT) 28, Alkaline Phosphatase 62, Total Protein 5.4, Albumin 2.5 10/18/21 09:35: White Blood Count 9.7, Red Blood Count 3.12, Hemoglobin 9.6, Hematocrit 31, Mean Corpuscular Volume 99, Mean Corpuscular Hemoglobin 31, Mean Corpuscular Hemoglobin Concent 31, Red Cell Distribution Width 19.2, Platelet Count 475, Mean Platelet Volume 9.0, Sodium Level 137, Potassium Level 3.7, Chloride Level 101, Carbon Dioxide Level 29, Anion Gap 7, Blood Urea Nitrogen 25, Creatinine 0.94, Estimat Glomerular Filtration Rate 60, BUN/Creatinine Ratio 27, Glucose Level 132, Calcium Level 8.5, Magnesium Level 2.2 10/18/21 11:40: Urine Color YELLOW, Urine Clarity CLEAR, Urine pH 6.5, Urine Specific [place] <=1.005, Urine Protein NEGATIVE, Urine Glucose (UA) NEGATIVE, Urine Ketones NEGATIVE, Urine Nitrite NEGATIVE, Urine Bilirubin NEGATIVE, Urine Urobilinogen 0.2, Urine Leukocyte Esterase NEGATIVE, Urine RBC (Auto) NEGATIVE, Urine RBC NONE, Urine WBC NONE, Urine Squamous Epithelial Cells NONE, Urine Crystals NONE, Urine Bacteria NEGATIVE, Urine Casts NONE, Urine Mucus NEGATIVE, Urine Culture Indicated NO 10/22/21 05:20: White Blood Count 15.2, Red Blood Count 2.91, Hemoglobin 9.0, Hematocrit 28, Mean Corpuscular Volume 98, Mean Corpuscular Hemoglobin 31, Mean Corpuscular Hemoglobin Concent 32, Red Cell Distribution Width 18.6, Platelet Count 492, Mean Platelet Volume 9.2, Sodium Level 138, Potassium Level 4.1, Chloride Level 104, Carbon Dioxide Level 23, Anion Gap 11, Blood Urea Nitrogen 28, Creatinine 0.97, Estimat Glomerular Filtration Rate 58, BUN/Creatinine Ratio 29, Glucose Level 117, Calcium Level 8.8, Immature Granulocyte % (Auto) 1, Neutrophils (%) (Auto) 78, Lymphocytes (%) (Auto) 13, Monocytes (%) (Auto) 6, Eosinophils (%) (Auto) 1, Basophils (%) (Auto) 0, Neutrophils # (Auto) 11.8, Lymphocytes # (Auto) 2.0, Monocytes # (Auto) 1.0, Eosinophils # (Auto) 0.2, Basophils # (Auto) 0.1, Immature Granulocyte # (Auto) 0.1, Corrected Calcium 9.8, Total Bilirubin 0.3, Aspartate Amino Transf (AST/SGOT) 27, Alanine Aminotransferase (ALT/SGPT) 30, Alkaline Phosphatase 60, Total Protein 6.0, Albumin 2.7 10/22/21 06:54: Procalcitonin 0.11 10/22/21 09:49: Urine Color YELLOW, Urine Clarity CLEAR, Urine pH 6.0, Urine Specific [place] 1.010, Urine Protein NEGATIVE, Urine Glucose (UA) TRACE, Urine Ketones NEGATIVE, Urine Nitrite NEGATIVE, Urine Bilirubin NEGATIVE, Urine Urobilinogen 0.2, Urine Leukocyte Esterase NEGATIVE, Urine RBC (Auto) NEGATIVE, Urine RBC NONE, Urine WBC NONE, Urine Squamous Epithelial Cells NONE, Urine Crystals NONE, Urine Bacteria NEGATIVE, Urine Casts NONE, Urine Mucus NEGATIVE, Urine Culture Indicated NO 10/23/21 05:45: White Blood Count 12.5, Red Blood Count 2.80, Hemoglobin 8.6, Hematocrit 27, Mean Corpuscular Volume 96, Mean Corpuscular Hemoglobin 31, Mean Corpuscular Hemoglobin Concent 32, Red Cell Distribution Width 18.4, Platelet Count 443, Mean Platelet Volume 8.8, Immature Granulocyte % (Auto) 1, Neutrophils (%) (Auto) 71, Lymphocytes (%) (Auto) 18, Monocytes (%) (Auto) 9, Eosinophils (%) (Auto) 1, Basophils (%) (Auto) 0, Neutrophils # (Auto) 8.8, Lymphocytes # (Auto) 2.2, Monocytes # (Auto) 1.1, Eosinophils # (Auto) 0.2, Basophils # (Auto) 0.0, Immature Granulocyte # (Auto) 0.1, Sodium Level 135, Potassium Level 3.8, Chloride Level 104, Carbon Dioxide Level 26, Anion Gap 5, Blood Urea Nitrogen 23, Creatinine 0.86, Estimat Glomerular Filtration Rate 67, BUN/Creatinine Ratio 27, Glucose Level 100, Calcium Level 8.5, Corrected Calcium 9.6, Total Bilirubin 0.4, Aspartate Amino Transf (AST/SGOT) 19, Alanine Aminotransferase (ALT/SGPT) 28, Alkaline Phosphatase 59, Total Protein 6.0, Albumin 2.6 Discharge Home Medications: Active Scripts Active Metronidazole 500 Mg Tablet 500 Mg PO TID Pantoprazole Sodium 40 Mg Tablet.dr 40 Mg PO DAILY Losartan Potassium 25 Mg Tablet 25 Mg PO HS Vancomycin HCl 125 Mg Capsule 125 Mg PO TID take 1 pill three times a day for 3 days then 1 pills twice daily until gone Acidophilus-Pectin Capsule (Lactobacillus Acidophilus/Pect) 75 Million Cell-100 Mg Capsule 2 Each PO TIDWM Reported Iron (Ferrous Sulfate) 325 Mg (65 Mg Iron) Tablet 325 Mg PO Q48H TAKES FRIDAY, FRIDAY, FRIDAY, FRIDAY Tylenol Extra Strength (Acetaminophen) 500 Mg Tablet 500 Mg PO TID PRN One Daily For Women 50+ Adv Tb (Multivitamins-Min/FA/Ginkgo) 400 Mcg-120 Mg Tablet 1 Each PO DAILY Vitamin D3 (Cholecalciferol (Vitamin D3)) 125 Mcg (5000 Unit) Tablet 125 Mcg PO DAILY Vitamin B-6 (Pyridoxine HCl) 50 Mg Tablet 50 Mg PO DAILY Potassium Chloride 20 Meq Tablet.er 20 Meq PO DAILY PRN Lasix (Furosemide) 20 Mg Tablet 20 Mg PO DAILY PRN [Areds 2] 1 Cap PO BID [Systane] 1 Drop BID 1 DROP EACH EYE BID Levothyroxine (Levothyroxine Sodium) 88 Mcg Capsule 88 Mcg PO DAILY Instructions to patient/family Please see electronic discharge instructions given to patient. Diagnosis/Problems Diagnosis/Problems (1) Immobility Status: Acute (2) Cellulitis Status: Acute Qualifiers: Qualified Codes: L03.115 - Cellulitis of right lower limb (3) Lower extremity edema Status: Acute (4) Hypothyroidism Status: Acute MOLLY MUIR DO Oct 23, 2021 10:05
[2021-10-23] MEDS: LACTOBACILLUS ACIDOPHILUS (PROBIOTIC) CAPSULE PO SCH ×2 (10:09→13:00)
[2021-10-23] MEDS: metroNIDAZOLE 500 MG (FLAGYL) TAB PO SCH ×2 (10:09→13:00)
[2021-10-23] MEDS: PANTOPRAZOLE 40 MG (PROTONIX) TAB PO SCH (10:09)
[2021-10-23] MEDS: DOCUSATE SODIUM 100 MG (COLACE) CAP PO SCH (10:09)
[2021-10-23] MEDS: ENOXAPARIN 40 MG/0.4 ML (LOVENOX) SYR SC SCH (10:10)
--- NOTE | 2021-10-23 11:20 | Therapy Team Discharge Summary ---
Therapy Discharge Summary Discharge Recommendations Date of Discharge Physical Therapy Roll Left to Right (QC): 6 Sit to Lying (QC): 6 Lying to Sitting/Side of Bed(Q: 6 Sit to Stand (QC): 6 Chair/Wkl-in-Paieq Xfer(QC): 6 Toilet Transfer (QC): 6 Car Transfer (QC): 6 Does the Patient Walk: Yes Mode of Locomotion: Walk Anticipated Mode of Locomotion: Walk Walk 10 feet (QC): 6 Walk 50 ft with 2 Turns(QC): 6 Walk 150 ft (QC): 4 Walking 10ft on uneven surface: 6 Distance: 150' x 5 Gait Assistive Device: FWW Does the Pt Use a Wheelchair: No Wheel 50 ft with 2 turns (QC): 4 Wheel 150 ft (QC): 9 Type of Wheelchair: Manual #of Steps: 12 1 Step (curb) (QC): 6 4 Steps (QC): 6 12 Steps (QC): 4 Walking Assistive Device: Walker Balance Sitting Static: Normal Balance Sitting Dynamic: Normal Balance-Standing Static: Fair Picking up an Object (QC): 6 Occupational Therapy Pt admitted to ARU with debility. At [facility], pt had increased difficulty with completing self care tasks, but was able to complete herself. Upon initial evaluation, pt was independent with eating, SBA oral care, min A showering, set up upper body dressing, mod A lower body dressing, max A footwear and min A toileting. OT txs focused on increasing BUE strength and activity tolerance, and increasing safety and independence with ADLs. Pt made functional progress tow ards goals, but only met goal for eating. Pt did not make significant progress in therapy, due to initial reluctance to use AE for LE dressing, and her belief that when she gets home she will be independent, even though she wasn't at an independent level with therapy. Pt scheduled to discharge home today with OT and bath aide, support from [facility]. D/C from OT. Decreased Activ Tolerance, Decreased UE Strength, Impaired Funct Balance, Impaired I ADL's, Impaired Self-Care Skills Eating (QC): 6 Oral Hygiene (QC): 4 Shower/Bathe Self (QC): 3 Upper Body Dressing (QC): 5 Lower Body Dressing (QC): 3 On/Off Footwear (QC): 4 Toileting Hygiene (QC): 3 PT Software Applications Specialist Goals Software Applications Specialist Goals PT Care Home Goals Time Frame: Nov 10, 2021 Roll Left to Right (QC): 6 (MET) Sit to Lying (QC): 6 (MET) Lying-Sitting on Side/Bed(QC): 6 (MET) Sit to Stand (QC): 6 (MET) Chair/Zfg-nf-Kwley Xfer(QC): 6 (MET) Car Transfer (QC): 6 (MET) Does the Patient Walk: Yes Walk 10 feet (QC): 6 (MET) Walk 10ft-Uneven Surface(QC): 6 (MET) Walk 50ft with 2 Turns (QC): 6 Walk 150 ft (QC): 6 Does the Pt use WC or Scooter?: No Wheel 50 feet with 2 turns (QC: 9 1 Step (curb) (QC): 4 (MET) 4 Steps (QC): 4 (MET) 12 Steps (QC): 4 (MET) Picking up an Object (QC): 6 OT Care Home Goals Software Applications Specialist Goals Time Frame: Oct 26, 2021 Eating (QC): 6 (met) Oral Hygiene (QC): 6 (not met) Shower/Bathe Self (QC): 6 (not met) Upper Body Dressing (QC): 6 (not met) Lower Body Dressing (QC): 6 (not met) On/Off Footwear (QC): 6 (not met) Toileting Hygiene (QC): 6 (not met) Toilet/Commode Transfer (QC): 6 (MET) Additional Goals: 1-Demonstrate ADL Tasks, 2-Verbalize Understanding, 3- ImproveStrength/Omari 1=Demonstrate adherence to instructed precautions during ADL tasks. 2=Patient will verbalize/demonstrate understanding of assistive devices/modifications for ADL. 3=Patient will improve strength/tolerance for activity to enable patient to perform ADL's. JEWELS MCCORMICK OT Oct 23, 2021 11:20
[2021-10-23] MEDS: polyethylene glycoL POWDER 17 GM (MIRALAX) PACK PO SCH (11:59)
[2021-10-23] MEDS: SENNA W/DOCUSATE (SENOKOT S) TABLET PO SCH (12:00)
[2021-10-23 14:30] VITALS: BP 170/79
--- NOTE | 2021-10-23 14:57 | Therapy Team Discharge Summary ---
Therapy Discharge Summary Discharge Recommendations Date of Discharge Physical Therapy Patient tolerated treatment well. She demonstrates I with all transfers, as long as the chair she was sitting in had arm rests. Patient ambulates 170 feet with SBA/I, with FWW, and verbal cues towards the end for posture and con servation of energy. Patient performs all functional activities as listed above including ascending/descending steps with left handrail ascending and quad cane in right UE. She requires additional assistance as she progresses to 12 steps, however was able to safely perform without any sitting rest breaks. She did perform to standing breaks, however this was not requested by the patient and was performed due to the physician discussing her plan of care with the patient. Patient in chair post treatment with all needs met, nursing notified, call light in reach and patients instrumentation chemist entering the room upon PT departure. Roll Left to Right (QC): 6 Sit to Lying (QC): 6 Lying to Sitting/Side of Bed(Q: 6 Sit to Stand (QC): 6 Chair/Cgq-ne-Kfxfo Xfer(QC): 6 Toilet Transfer (QC): 6 Car Transfer (QC): 6 Does the Patient Walk: Yes Mode of Locomotion: Walk Anticipated Mode of Locomotion: Walk Walk 10 feet (QC): 6 Walk 50 ft with 2 Turns(QC): 6 Walk 150 ft (QC): 4 Walking 10ft on uneven surface: 6 Distance: 150' x 5 Gait Assistive Device: FWW Does the Pt Use a Wheelchair: No Wheel 50 ft with 2 turns (QC): 9 Wheel 150 ft (QC): 9 Type of Wheelchair: Manual #of Steps: 12 1 Step (curb) (QC): 6 4 Steps (QC): 6 12 Steps (QC): 4 Walking Assistive Device: Walker Balance Sitting Static: Normal Balance Sitting Dynamic: Normal Balance-Standing Static: Fair Picking up an Object (QC): 6 Occupational Therapy Decreased Activ Tolerance, Decreased UE Strength, Impaired Funct Balance, Impaired I ADL's, Impaired Self-Care Skills Eating (QC): 6 Oral Hygiene (QC): 4 Shower/Bathe Self (QC): 3 Upper Body Dressing (QC): 5 Lower Body Dressing (QC): 3 On/Off Footwear (QC): 4 Toileting Hygiene (QC): 3 PT Weaving Inspector Goals Detention Goals PT Weaving Inspector Goals Time Frame: Nov 10, 2021 Roll Left to Right (QC): 6 (MET) Sit to Lying (QC): 6 (MET) Lying-Sitting on Side/Bed(QC): 6 (MET) Sit to Stand (QC): 6 (MET) Chair/Gwo-xq-Eadlv Xfer(QC): 6 (MET) Car Transfer (QC): 6 (MET) Does the Patient Walk: Yes Walk 10 feet (QC): 6 (MET) Walk 10ft-Uneven Surface(QC): 6 (MET) Walk 50ft with 2 Turns (QC): 6 Walk 150 ft (QC): 6 Does the Pt use WC or Scooter?: No Wheel 50 feet with 2 turns (QC: 9 1 Step (curb) (QC): 4 (MET) 4 Steps (QC): 4 (MET) 12 Steps (QC): 4 (MET) Picking up an Object (QC): 6 OT Weaving Inspector Goals Detention Goals Time Frame: Oct 26, 2021 Eating (QC): 6 (met) Oral Hygiene (QC): 6 (not met) Shower/Bathe Self (QC): 6 (not met) Upper Body Dressing (QC): 6 (not met) Lower Body Dressing (QC): 6 (not met) On/Off Footwear (QC): 6 (not met) Toileting Hygiene (QC): 6 (not met) Toilet/Commode Transfer (QC): 6 (MET) Additional Goals: 1-Demonstrate ADL Tasks, 2-Verbalize Understanding, 3- ImproveStrength/Omari 1=Demonstrate adherence to instructed precautions during ADL tasks. 2=Patient will verbalize/demonstrate understanding of assistive devices/modifications for ADL. 3=Patient will improve strength/tolerance for activity to enable patient to perform ADL's. LUCIANO NÚÑEZ PT Oct 23, 2021 14:57
== END 2021-10-23 14:30 | disposition home health service (06) | DRG 948 ==
PROVIDERS: ADMIT Internal Medicine; ATTEND Internal Medicine
DX: R53.1 Weakness (principal); L03.116 Cellulitis of left lower limb; L03.115 Cellulitis of right lower limb; A04.72 Enterocolitis due to Clostridium difficile, not specified as recurrent; J90 Pleural effusion, not elsewhere classified; I87.2 Venous insufficiency (chronic) (peripheral); R60.0 Localized edema; Z66 Do not resuscitate; R32 Unspecified urinary incontinence; F32.A Depression, unspecified; I10 Essential (primary) hypertension; E03.9 Hypothyroidism, unspecified; F41.9 Anxiety disorder, unspecified; D64.9 Anemia, unspecified; E88.09 Other disorders of plasma-protein metabolism, not elsewhere classified; E87.6 Hypokalemia; H54.7 Unspecified visual loss; Z86.718 Personal history of other venous thrombosis and embolism; Z82.49 Family history of ischemic heart disease and other diseases of the circulatory system
CPT/HCPCS: 36415; 71045; 80048; 80053; 80202; 81000; 83735; 84145; 85025; 85027; 87324; 87449; 87493; 94664

== ENCOUNTER 2022-03-10 22:05 | Emergency (ER) | payer MEDICARE ==
[~2022-03-10 22:05] MED LIST changes: +LOSA25TA41 PO; +METR-145 PO; +PANT40TA52 PO; +VANC125C5 PO
[2022-03-10] MEDS ORDERED: NS IV 500 ML 500 ML IV STA (22:13)
[2022-03-10] MEDS ORDERED: fentaNYL INJ 100 MCG/2 ML AMP IVP ONE ×2 (22:15→23:15)
[2022-03-10] MEDS ORDERED: ONDANSETRON 4 MG/2 ML (SDV) Z0FRAN IVP ONE (22:15)
--- NOTE | 2022-03-10 22:18 | ED Fall/Injury ---
General Chief Complaint: Hip/Pelvic Problems Stated Complaint: HIP PAIN Nursing Triage Note: TO ED VIA [facility] FROM [facility]. THE FIRE ALARM SOUNDED AT THE FACILITY AND SHE WAS GOING OUTSIDE SHE TRIPPED WHEN WALKER CAUGHT ON DOORWAY. Source: patient, EMS Exam Limitations: no limitations History of Present Illness Date Seen by Provider: Mar 10, 2022 Time Seen by Provider: 22:05 Initial Comments Patient is an 86-year-old female who presents to the emergency department by ambulance today from assisted living after mechanical trip and fall. Patient was walking over a threshold, tripped and fell on her left hip. She required assistance from the fire department and EMS. She states she did not hit her head or have a loss of consciousness. She denies chest pain, shortness of breath. No abdominal pain, nausea or vomiting. No other complaints of extremity injury. She is alert and oriented. Rates her pain at a "7". She de clined pain medication from EMS. She was noted to be quite hypertensive during transport with a systolic blood pressure of 230. She states she has taken all of her routine daily medications today including her antihypertensives. She last ate at 430 this afternoon. All other review of systems reviewed and negative except as stated Occurred: just prior to arrival Severity: moderate Injuries/Pain Location: lower extremity Context: tripped Loss of Consciousness: no loss of consciousness Modifying Factors: Improves With Immobilization Associated Symptoms (Fall): Denies Symptoms Allergies and Home Medications Allergies Coded Allergies: No Known Drug Allergies (Unverified , 10/06/21) Patient Home Medication List Home Medication List Reviewed: Yes Acetaminophen (Tylenol Extra Strength) 500 Mg Tablet, 500 MG PO TID PRN for PAIN-MILD (1-4), (Reported) Entered as Reported by: NINO CAVAZOS on 10/08/21 0937 Cholecalciferol (Vitamin D3) (Vitamin D3) 125 Mcg (5000 Unit) Tablet, 125 MCG PO DAILY, (Reported) Entered as Reported by: NINO CAVAZOS on 10/08/21 0935 Ferrous Sulfate (Iron) 325 Mg (65 Mg Iron) Tablet, 325 MG PO Q48H, (Reported) Entered as Reported by: NINO CAVAZOS on 10/08/21 0953 Furosemide (Lasix) 20 Mg Tablet, 20 MG PO DAILY PRN, (Reported) Entered as Reported by: EILEEN MELÉNDEZ on 10/06/21 1645 Lactobacillus Acidophilus/Pect (Acidophilus-Pectin Capsule) 75 Million Cell-100 Mg Capsule, 2 EACH PO TIDWM Prescribed by: AMBER PAULINO on 10/09/21 0831 Levothyroxine Sodium (Levothyroxine) 88 Mcg Capsule, 88 MCG PO DAILY, (Reported) Entered as Reported by: EILEEN MELÉNDEZ on 10/06/21 1640 Losartan Potassium (Losartan Potassium) 25 Mg Tablet, 25 MG PO HS Prescribed by: MOLLY MUIR on 10/22/21 0549 Metronidazole (Metronidazole) 500 Mg Tablet, 500 MG PO TID Prescribed by: AMBER PAULINO on 10/23/21 0915 Multivitamins-Min/FA/Ginkgo (One Daily For Women 50+ Adv Tb) 400 Mcg-120 Mg Tablet, 1 EACH PO DAILY, (Reported) Entered as Reported by: NINO CAVAZOS on 10/08/21 0935 Pantoprazole Sodium (Pantoprazole Sodium) 40 Mg Tablet.dr, 40 MG PO DAILY Prescribed by: MOLLY MUIR on 10/22/21 0549 Potassium Chloride (Potassium Chloride) 20 Meq Tablet.er, 20 MEQ PO DAILY PRN, (Reported) Entered as Reported by: EILEEN MELÉNDEZ on 10/06/21 164 Pyridoxine HCl (Vitamin B-6) 50 Mg Tablet, 50 MG PO DAILY, (Reported) Entered as Reported by: NINO CAVAZOS on 10/08/21 0934 Vancomycin HCl (Vancomycin HCl) 125 Mg Capsule, 125 MG PO TID Prescribed by: MOLLY MUIR on 10/22/21 0549 [Areds 2] , 1 CAP PO BID, (Reported) Entered as Reported by: EILEEN MELÉNDEZ on 10/06/21 1644 [Systane] , 1 DROP BID, (Reported) Entered as Reported by: EILEEN MELÉNDEZ on 10/06/21 164 Review of Systems Review of Systems Constitutional: see HPI Eyes: No Symptoms Reported Ears, Nose, Mouth, Throat: no symptoms reported Respiratory: no symptoms reported Cardiovascular: no symptoms reported Gastrointestinal: no symptoms reported Genitourinary: no symptoms reported Musculoskeletal: joint pain (left posterior hip) Skin: no symptoms reported All Other Systems Reviewed Negative Unless Noted: Yes Past Uipfyti-Zqdrzz-Nlibce Hx Patient Social History Tobacco Use?: No Substance use?: No Alcohol Use?: No Immunizations Up To Date Influenza Vaccine Up-to-Date: No; Not Current First/Initial COVID19 Vaccinat: 2020 Second COVID19 Vaccination Neto: 2020 Third COVID19 Vaccination Date: 2020 Seasonal Allergies Seasonal Allergies: No Past Medical History Surgery/Hospitalization HX: HTN, HIGH THYROID, DVT, CARPAL TUNNEL, Surgeries: Yes Orthopedic Respiratory: No Currently Using CPAP: No Currently Using BIPAP: No Cardiac: Yes Hypertension Neurological: No Reproductive Disorders: No Sexually Transmitted Disease: No HIV/AIDS: No Genitourinary: No Gastrointestinal: No Musculoskeletal: No Endocrine: Yes Hypothyroidsim Loss of Vision: Denies Hearing Impairment: Denies Cancer: No Did You Recieve Any Treatments: No Psychosocial: No Blood Disorders: No Adverse Reaction/Blood Tranf: No Family Medical History Heart Disease, Hypertension Physical Exam Vital Signs Vital Signs - First Documented 03/10/22 22:08 Temp 36.6 Pulse 71 Resp 16 B/P (MAP) 230/108 (148) Pulse Ox 96 O2 Delivery Room Air Capillary Refill : Less Than 3 Seconds Height, Weight, BMI Height: '" Weight: lbs. oz. kg; 25.89 BMI Method: General Appearance: WD/WN, no apparent distress HEENT: PERRL/EOMI Neck: normal inspection Cardiovascular: regular rate, rhythm Respiratory: lungs clear, normal breath sounds, no respiratory distress, no accessory muscle use Gastrointestinal: non tender, soft Extremities: swelling (2+ pitting edema Bilat LE; tenderness to palpation left posterior hip and lateral hip. no shortening or rotation) Neurologic/Psychiatric: alert, normal mood/affect, oriented x 3 Skin: normal color, warm/dry Progress/Results/Core Measures Results/Orders My Orders Orders - ODILIA CERON MD Pelvis With Left Hip 2-3 Views (03/10/22 22:13) Ed Iv/Invasive Line Start (03/10/22 22:13) Fentanyl Inj (Sublimaze Injection) (03/10/22 22:15) Ondansetron Injection (Zofran Injectio (03/10/22 22:15) Ns Iv 500 Ml (Sodium Chloride 0.9%) (03/10/22 22:13) Labetalol Injection (Normodyne Injection (03/10/22 23:15) Fentanyl Inj (Sublimaze Injection) (03/10/22 23:15) Medications Given in ED Current Medications Medications Dose Ordered Sig/Connie Route Start Time Stop Time Status Last Admin Dose Admin Fentanyl Citrate 50 mcg ONCE ONCE IVP 03/10/22 22:15 03/10/22 22:16 DC 03/10/22 22:20 50 MCG Fentanyl Citrate 50 mcg ONCE ONCE IVP 03/10/22 23:15 03/10/22 23:16 DC 03/10/22 23:14 50 MCG Labetalol HCl 20 mg ONCE ONCE IV 03/10/22 23:15 03/10/22 23:16 DC 03/10/22 23:14 20 MG Ondansetron HCl 4 mg ONCE ONCE IVP 03/10/22 22:15 03/10/22 22:16 DC 03/10/22 22:20 4 MG Vital Signs/I&O 03/10/22 22:08 Temp 36.6 Pulse 71 Resp 16 B/P (MAP) 230/108 (148) Pulse Ox 96 O2 Delivery Room Air Blood Pressure Mean: 148 Progress Progress Note : Time: 23:28 Progress Note Patient seen and examined, 86-year-old with left hip pain after a mechanical trip and fall. Evaluation today includes physical exam as well as x-rays of the pelvis and left hip. Patient is noted to have a nondisplaced left intertrochanteric hip fracture. She is quite hypertensive on presentation with systolic blood pressure of 220. She was given fentanyl for pain with improvement of her systolic pressure down to about 200. Normally she states her blood pressure is much lower. She did take her medications she states today. After identifying the fracture on x-ray I gave her some labetalol as well as more fentanyl. We do not have orthopedic services available today or tomorrow at our facility. Case discussed with Dr. Rachell Mabry in the emergency department at [facility] who accepts the patient for transfer. Diagnostic Imaging Diagonstic Imaging: Xray Plain Films/CT/US/NM/MRI: pelvis, hip Comments Interpreted by menondisplaced intertrochanteric fracture left hip Departure Impression Primary Impression: Intertrochanteric fracture of femur Qualified Codes: S72.145A - Nondisplaced intertrochanteric fracture of left femur, initial encounter for closed fracture Additional Impression: High blood pressure Qualified Codes: I10 - Essential (primary) hypertension Disposition: XFER SHT-TRM HOSP Condition: Stable Transfer Transfer Reason: Exceeds level of care Time Spoke to Accepting Phy: 23:05 Transfer Progress Notes Discussed with Dr Yoo - accepts patient for transfer Transfer Time: 23:30 Transfer Facility: [facility] Method of Transfer: EMS Departure-Patient Inst. Referrals: AMBER PAULINO MD (PCP/Family) Primary Care Physician Copy Copies To 1: AMBER PAULINO MD, KATHRYN M MD Mar 10, 2022 22:18
[2022-03-10] MEDS ORDERED: LABETALOL HCL 20 MG/4 ML VIAL IV ONE (23:15)
[2022-03-11] MEDS ORDERED: hydrALAZINE (APESOLINE) 20 MG/ML VIAL IV STA (07:05)
--- NOTE | 2022-03-11 08:21 | Diagnostic Imaging Report ---
INDICATION: Left hip pain post fall TECHNIQUE: AP pelvis along with 2 views left hip, 10:38 PM CORRELATION STUDY: 10/06/2021 FINDINGS: Examination compromised by large amount of stool and gas. The pectineal lines and obturator rings of the pelvis appear to be intact. Sacrum and sacroiliac joints are largely obscured with pubic symphysis unremarkable. Rather significantly advanced severity osteoarthritic change of the right hip. Left hip demonstrates severe osteoarthritic change. Joint space is largely obliterated. Subcortical sclerosis is noted. There is some volume loss left femoral head. Findings are positive for a nondisplaced, subtle intertrochanteric left proximal femur fracture. IMPRESSION: Positive for nondisplaced intertrochanteric fracture of the proximal left femur. This is superimposed on superiorly advanced osteoarthritic change left hip. Telephone call has been made to the [facility]. Nursing staff states that this positive finding has been noted. Dictated by: Dictated on workstation # [id number]
[2022-03-11 09:17] VITALS: BP 203/103
== END 2022-03-11 09:17 | disposition short-term general hospital (02) ==
LOC: EDUNIT# 22:05 → ER 22:06
DX: S72.145A Nondisplaced intertrochanteric fracture of left femur, initial encounter for closed fracture (principal); I10 Essential (primary) hypertension; W01.0XXA Fall on same level from slipping, tripping and stumbling without subsequent striking against object, initial encounter; Y93.01 Activity, walking, marching and hiking
CPT/HCPCS: 51702

== ENCOUNTER 2022-03-13 13:57 | Inpatient (IN) | payer MEDICARE ==
[2022-03-13] MEDS ORDERED: POLY17PO6 PO (14:32)
[2022-03-13] MEDS ORDERED: LOSA50TA63 PO (14:36)
[2022-03-13] MEDS ORDERED: ASPI-999 PO (14:39)
[2022-03-13] MEDS ORDERED: AMLO-250 PO (14:40)
[2022-03-13] MEDS ORDERED: HYDR-3817 PO (14:43)
[2022-03-13] MEDS ORDERED: ALPRAZolam 0.25 MG (XANAX) TAB PO PRN (15:15)
[2022-03-13] MEDS ORDERED: MELATONIN 3 MG TABLET PO PRN (15:15)
[2022-03-13] MEDS ORDERED: diphenhydrAMINE 25 MG TAB (BENADRYL) PO PRN (15:15)
[2022-03-13] MEDS ORDERED: FLEET ENEMA ADULT 1 EA BTL PR PRN (15:15)
[2022-03-13] MEDS ORDERED: guaiFENesin/CODEINE (ROBITUSSIN AC) 10ML UDC PO PRN (15:15)
[2022-03-13] MEDS ORDERED: LOPERAMIDE 2 MG (IMODIUM) TABLET PO PRN (15:15)
[2022-03-13] MEDS ORDERED: CALCIUM CARBONATE 500 MG (TUMS) TAB.CHEW PO PRN (15:15)
[2022-03-13] MEDS ORDERED: BISACODYL 10 MG SUPP (DULCOLAX) PR PRN (15:15)
[2022-03-13] MEDS ORDERED: DOCUSATE SODIUM 100 MG (COLACE) CAP PO PRN (15:15)
--- NOTE | 2022-03-13 15:23 | PM&R Post Admission Assessment ---
PM&R Date of Visit: Mar 13, 2022 Time of Visit: 18:00 History of Present Illness Chief complaint: Debility following left hip fracture HPI: This is an 86-year-old female known to inpatient rehab from prior admission remotely for lower extremity cellulitis with debility who presents following a left hip fracture status post repair at [facility] on 03/11/2022. She suffered a fall on [address] and subsequently was brought to the ER and diagnosed with a fracture and was sent to [facility] due to no orthopedic coverage locally. She reports constipation but otherwise she is voiding well. Home medications will be restarted. Prior level of functioning was independent. Past Gpherha-Fxjtqb-Xzrfhb Hx Past Med/Social Hx: Reviewed Nursing Past Med/Soc Hx, Reviewed and Corrections made Patient Social History Marrital Status: Employed/Student: retired Alcohol Use: Denies Use Smoking Status: Never a Smoker Seasonal Allergies Seasonal Allergies: No Past Medical History Surgeries: Orthopedic Currently Using CPAP: No Currently Using BIPAP: No Cardiac: Hypertension Reproductive: No Sexually Transmitted Disease: No HIV/AIDS: No Endocrine: Hypothyroidsim Loss of Vision: Denies Hearing Impairment: Denies Did You Recieve Any Treatments: No History of Blood Disorders: No Adverse Reaction to Blood Acevedo: No Family History Heart Disease, Hypertension 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 PM&R Allergy/Meds/Data Review Allergies Coded Allergies: No Known Drug Allergies (Unverified , 10/06/21) Home Medications Scheduled Amlodipine Besylate (Amlodipine Besylate), 5 MG PO HS, (Reported) Aspirin (Aspirin), 81 MG PO BID, (Reported) Cholecalciferol (Vitamin D3) (Vitamin D3), 125 MCG PO DAILY, (Reported) Ferrous Sulfate (Iron), 325 MG PO Q48H, (Reported) Furosemide (Lasix), 20 MG PO DAILY PRN, (Reported) Hydrocodone/Acetaminophen (Hydrocodone-Acetamin 7.5-325), 1 EACH PO Q4H, (Reported) Lactobacillus Acidophilus/Pect (Acidophilus-Pectin Capsule), 2 EACH PO TIDWM Levothyroxine Sodium (Levothyroxine), 88 MCG PO DAILY, (Reported) Losartan Potassium (Losartan Potassium), 50 MG PO DAILY, (Reported) Multivitamins-Min/FA/Ginkgo (One Daily For Women 50+ Adv Tb), 1 EACH PO DAILY, (Reported) Pantoprazole Sodium (Pantoprazole Sodium), 40 MG PO DAILY Polyethylene Glycol 3350 (Miralax), 17 GM PO DAILY, (Reported) Potassium Chloride (Potassium Chloride), 20 MEQ PO DAILY, (Reported) [Systane], 1 DROP BID, (Reported) Scheduled PRN Acetaminophen (Tylenol Extra Strength), 500 MG PO TID PRN for PAIN-MILD (1-4), (Reported) Discontinued Medications Losartan Potassium (Losartan Potassium), 25 MG PO HS Discontinued Reason: No Longer Taking Metronidazole (Metronidazole), 500 MG PO TID Discontinued Reason: No Longer Taking Pyridoxine HCl (Vitamin B-6), 50 MG PO DAILY, (Reported) Discontinued Reason: Duplicate Order Vancomycin HCl (Vancomycin HCl), 125 MG PO TID Discontinued Reason: No Longer Taking [Areds 2], 1 CAP PO BID, (Reported) Discontinued Reason: No Longer Taking Current Medications Current Medications Reviewed Review of Systems Constitutional: see HPI, malaise, weakness EENTM: no symptoms reported Respiratory: no symptoms reported Cardiovascular: no symptoms reported Gastrointestinal: constipation Genitourinary: no symptoms reported Musculoskeletal: back pain, joint pain Skin: no symptoms reported Psychiatric/Neurological: Depressed All Other Systems Reviewed Negative Unless Noted: Yes Physical Exam Physical Exam Vital Signs Capillary Refill : Height, Weight, BMI Height: '" Weight: lbs. oz. kg; 25.89 BMI Method: General Appearance: No Apparent Distress, WD/WN, Chronically ill, Obese Eyes: Bilateral Eye Normal Inspection, Bilateral Eye PERRL HEENT: PERRL/EOMI, Normal ENT Inspection, Pharynx Normal Neck: Full Range of Motion, Normal Inspection, Non Tender, Supple, Carotid Bruit Respiratory: Chest Non Tender, Lungs Clear, Normal Breath Sounds, No Accessory Muscle Use, No Respiratory Distress Cardiovascular: Regular Rate, Rhythm, No Edema, No Gallop, No JVD, No Murmur, Normal Peripheral Pulses Gastrointestinal: Normal Bowel Sounds, No Organomegaly, No Pulsatile Mass, Non Tender, Soft Back: Normal Inspection, No CVA Tenderness, No Vertebral Tenderness Extremity: Normal Capillary Refill, Normal Inspection, Normal Range of Motion (Except left), Non Tender, No Calf Tenderness, No Pedal Edema Neurologic/Psychiatric: Alert, Oriented x3, No Motor/Sensory Deficits, Normal 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, 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, Abnormal Gait, Motor Weakness (Left leg) Skin: Normal Color, Warm/Dry Lymphatic: No Adenopathy PM&R Medical Assessment & Plan REHAB/MEDICAL ASSESSMENT AND PLAN: REHAB IMPAIRMENT GROUP: Left hip fracture ETIOLOGIC DIAGNOSIS: Left hip fracture The comorbidities that impact the patients function and/or functional outcome by: Advanced age, severe pain left leg, severe weakness, anemia REHAB PLAN: The patient is being admitted to our comprehensive inpatient rehabilitation facility and can tolerate the intensity of service consisting of at least: 180 minutes of therapy a day, 5 out of 7 days a week Rehab treatment will consist of: PT and OT will focus on regaining function with use of assistive devices in order to regain independence to return back on independent living The patient/family has a good understanding of our discharge process and will benefit from an interdisciplinary inpatient rehabilitation program. The patient has potential to make improvement and is in need of at least two of the following multidisciplinary therapies including but not limited to physical, occupational, speech, and prosthetics and orthotics. Additionally the patient will need services from respiratory, nutritional services, wound care, psychology, etc. (Customize this to each patient). Given the patients complex condition and risk of further medical complications, rehabilitation services cannot be safely or effectively provided at a lower level of care such as a penitentiary facility. BARRIERS TO DISCHARGE: Advanced age and lives alone ESTIMATED LOS: 10 days DISPOSITION: Home RELEVANT CHANGES SINCE PREADMISSION SCREENING: I have compared the patients medical and functional status at the time of the preadmission screening and there are: No changes PROGNOSIS: Good REHABILITATION GOALS: 1. PT and OT will focus on regaining function with use of assistive devices in order to regain independence to return back on independent living All the above goals were reviewed with the patient and he/she is in agreement. By signing this document, I acknowledge that I have personally performed a full physical examination on this patient within 24 hours of admission to this inpatient rehabilitation facility and have determined the patient to be able to tolerate the above course of treatment at an intensive level for a reasonable period of time. I will be completing a detailed individualized Plan of Care for this patient by day #4 of the patients stay based upon the Preadmission Screen, the Post-Admission Evaluation, and the therapy evaluations. Admission Dx/Comorbidities: (1) Intertrochanteric fracture of femur Status: Acute ICD Codes: S72.143A - Displaced intertrochanteric fracture of unspecified femur, initial encounter for closed fracture Assessment/Plan Assessment and Plan Assess & Plan/Chief Complaint Assessment: Left femur fracture status post repair at [place] Severe chronic lower extremity edema Hypothyroidisim Anemia Hypoalbuminemia Advanced age Postop constipation Acute blood loss anemia Plan: Pain control Bowel regimen PT and OT Supportive care MOLLY MUIR DO Mar 13, 2022 15:23
[2022-03-13 15:37] VITALS: BP 181/91
--- NOTE | 2022-03-13 15:37 | Physical Therapy Evaluation ---
PT Evaluation-General Medical Diagnosis Admission Date Mar 13, 2022 at 15:05 Medical Diagnosis: left hip IM sam Onset Date: Mar 13, 2022 Therapy Diagnosis Therapy Diagnosis: impaired mobility Weight Bear Status Left Lower Extremity: Left Weight Bearing/Tolerated Referral Physician: Janice Garcia DO Reason for Referral: Evaluation/Treatment Medical History Pertinent Medical History: HTN, Hypothroidism Additional Medical History Past Medical History Surgeries: Orthopedic Currently Using CPAP: No Currently Using BIPAP: No Cardiac: Hypertension Reproductive: No Sexually Transmitted Disease: No HIV/AIDS: No Endocrine: Hypothyroidsim Loss of Vision: Denies Hearing Impairment: Denies Did You Recieve Any Treatments: No History of Blood Disorders: No Adverse Reaction to Blood Acevedo: No Reviewed History: Yes Social History Home: Assisted Living Entry Into Home: Level Entry Prior Prior Level of Function SCALE: Activities may be completed with or without assistive devices. 8-Oukncclcjo-idfgorf completes the activity by him/herself with no assistance from a helper. 5-Set-up or Clean-up Assistance-helper sets up or cleans up; patient completes activity. [place] assists only prior to or following the activity. 4-Supervision or Touching Assistance-helper provides verbal cues and/or touching/steadying and/or contact guard assistance as patient completes activit y. Assistance may be provided throughout the activity or intermittently. 3-Partial/Moderate Assistance-helper does LESS THAN HALF the effort. [place] lifts, holds or supports trunk or limbs, but provides less than half the effort. 2-Substantial/Maximal Assistance-helper does MORE THAN HALF the effort. [place] lifts or holds trunk or limbs and provides more than half the effort. 7-Uzagtuuzd-tgooex does ALL the effort. Patient does none of the effort to complete the activity. Or, the assistance of 2 or more helpers is required for the patient to complete the activity. If activity was not attempted, code reason: 7-Patient Refused. 9-Not Applicable-not attempted and the patient did not perform the activity before the current illness, exacerbation or injury. 10-Not Attempted due to Environmental Limitations-(lack of equipment, weather restraints, etc.). 88-Not Attempted due to Medical Conditions or Safety Concerns. Bed Mobility: 6 Transfers (B,C,W/C): 6 Gait: 6 Indoor Mobility (Ambulation): Independent Prior Devices Use: Walker PT Evaluation-Current Subjective Patient comes to hospital via family transport. Patient has 8/10 pain in left hip. Pain Section J - Health Conditions 1. Rarely or not at all 2. Occasionally 3. Frequently 4. Almost constantly 8. Unable to answer Pain Effect on Sleep: 3 Pain Interference with Therapy: 3 Pain Interference w/Day-to-Day: 3 Pt/Family Goals to be independent at home Objective Patient Orientation: Person, Place, Situation Sensory Hearing: Functional Sensation Right Lower Extremit: Intact Sensation Left Lower Extremity: Intact Transfers Roll Left & Right (QC): 2 Sit to Lying (QC): 1 Lying to Sitting/Side of Bed(Q: 1 Sit to Stand (QC): 2 Chair/Qry-hu-Chffv Xfer(QC): 2 Toilet Transfer (QC): 2 Car Transfer (QC): 2 Patient performs rolling with max assist, supine <-> sit with dependence (assist of 2), sit <-> stand max assist, transfers max assist, car transfer max assist. Patient needs cues for positioning and safety. 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 Patient has impaired mobility, strength, endurance, needs significant amount of assist for supine <-> sit and transfers, she cannot ambulate at this time. Rehab Potential: Guarded PT Short Term Goals Short Term Goals Time Frame: Mar 20, 2022 Roll Left & Right: 3 (modA) Sit to lyin (modA) Lying to sitting on side of be: 3 (modA) Sit to stand: 3 (modA) Chair/qgc-dm-dszrb transfer: 3 (modA) Walk 10 feet: 3 (modA) PT Long-Term Goals Long-Term Goals PT Long-Term Goals Time Frame: Mar 27, 2022 Roll Left to Right (QC): 3 (Rusty) Sit to Lying (QC): 3 (Rusty) Lying-Sitting on Side/Bed(QC): 3 (Rusty) Sit to Stand (QC): 3 (Rusty) Chair/Pqr-uh-Bswcg Xfer(QC): 3 (Rusty) Toilet/Commode Transfer (QC): 3 (Rusty) Car Transfer (QC): 3 (Rusty) Walk 10 feet (QC): 3 (Rusty) Walk 10ft-Uneven Surface(QC): 3 (Rusty) Walk 50ft with 2 Turns (QC): 88 Walk 150 ft (QC): 88 Wheel 50 feet with 2 turns (QC: 4 (SBA) Wheel 150 feet: 4 (SBA) 1 Step (curb) (QC): 88 4 Steps (QC): 88 12 Steps (QC): 88 Picking up an Object (QC): 4 (CGA using a pet care technician) PT Plan Problem List Problem List: Activity Tolerance, Functional Strength, Safety, Balance, Gait, Transfer, Bed Mobility, ROM Treatment/Plan Treatment Plan: Continue Plan of Care Treatment Plan: Bed Mobility, Education, Functional Activity Omari, Functional Strength, Group Therapy, Gait, Safety, Therapeutic Exercise, Transfers Treatment Duration: Mar 27, 2022 Frequency: At least 5 of 7 days/Wk (IRF) Estimated Hrs Per Day: 1.5 hours per day Patient and/or Family Agrees t: Yes Safety Risks/Education Patient Education: Transfer Techniques, Correct Positioning, W/C Management, Safety Issues Teaching Recipient: Patient Teaching Methods: Demonstration, Discussion Response to Teaching: Reinforcement Needed Discharge Recommendations Plan Patient will perform bed mobility and transfer training, balance and endurance training, functional strengthening, gait training, and education, to improve functional mobility and independence at home. Therapy Discharge Recommendati: Assisted Living Time Time In: 1510 Time Out: 1520 DATE: Mar 13, 2022 Total Billed Treatment Time: 10 Total Billed Treatment 1 visit DIAMANTE HINKLE PT Mar 13, 2022 15:37
[2022-03-13] MEDS ORDERED: ACETAMINOPHEN 500 MG TAB (TYLENOL) PO PRN (15:45)
[2022-03-13] MEDS ORDERED: FUROSEMIDE 20 MG (LASIX) TAB PO PRN (15:45)
--- NOTE | 2022-03-13 15:45 | Physical Therapy Daily Note ---
PT Daily Note-Current Subjective After OT & PT eval, SURVEY SUPERINTENDENT joins OT for co-treat. Pt agrees to PT. Pain Numeric Pain Scale: 9 Location: Left Location Body Site: Hip Pain Description: Ache, Tightness Section J - Health Conditions 1. Rarely or not at all 2. Occasionally 3. Frequently 4. Almost constantly 8. Unable to answer Pain Effect on Sleep: 4 Pain Interference with Therapy: 4 Pain Interference w/Day-to-Day: 4 Mental Status Patient Orientation: Person, Place, Situation Attachments: Oxygen (1L) Transfers SCALE: Activities may be completed with or without assistive devices. 2-Whevggfoyf-ixnuzns completes the activity by him/herself with no assistance from a helper. 5-Set-up or Clean-up Assistance-helper sets up or cleans up; patient completes activity. [place] assists only prior to or following the activity. 4-Supervision or Touching Assistance-helper provides verbal cues and/or touching/steadying and/or contact guard assistance as patient completes activity. Assistance may be provided throughout the activity or intermittently. 3-Partial/Moderate Assistance-helper does LESS THAN HALF the effort. [place] lifts, holds or supports trunk or limbs, but provides less than half the effort. 2-Substantial/Maximal Assistance-helper does MORE THAN HALF the effort. [place] lifts or holds trunk or limbs and provides more than half the effort. 6-Mrwzdwxam-rqfcjj does ALL the effort. Patient does none of the effort to complete the activity. Or, the assistance of 2 or more helpers is required for the patient to complete the activity. If activity was not attempted, code reason: 7-Patient Refused. 9-Not Applicable-not attempted and the patient did not perform the activity before the current illness, exacerbation or injury. 10-Not Attempted due to Environmental Limitations-(lack of equipment, weather restraints, etc.). 88-Not Attempted due to Medical Conditions or Safety Concerns. Sit to Stand (QC): 2 Chair/Mlq-ux-Kzvjt Xfer(QC): 1 Toilet Transfer (QC): 1 Weight Bearing Full Weight Bearing Weight Bearing/Tolerated Gait Training Does the Patient Walk?: No and Walking Goal IS indicated Wheelchair Training Does the Pt Use a Wheelchair?: Yes Wheel 50 ft with 2 turns (QC): 3 Wheel 150 ft (QC): 3 Type of Wheelchair: Manual Exercises Seated Therapy Exercises: Sit to stand Treatments OT/PT cotreat due to skill of 2 clinicians required that a rehab office coordinator could not perform in order to coordinate UE/LEs, decrease fall risk, and due to pt's limitations in strength, activity tolerance, mobility/transfers, and pain with movement. OT focused on ADLs, UE placement, cues for sequencing and safety. PT focused on LE placement, gross overall movement, transfers and mobility. Pt taken to room due to incontinence of urine, assist x2 to transfer to toilet. Soiled clothes doffed, total assist with LE clothing and footwear, pt able to doff shirt herself. Sponge bath and toileting complete, assist x2, then SPT to w/c, assist x2. Pt sat at sink for grooming tasks, then taken to therapy gym. Pt stood x2 in parallel bars, max A sit to stand, and max A in standing to maintain position with verbal and tactile cues. Pt retropulsive with stand to sit, requiring 2 person (1 to guide pt's hands to w/c arm rests and 1 to assist with sit). Pt able to stand ~1-2 mins each stand. Pt taken back to her room, transferred to recliner. Post tx, pt in recliner, call light in reach and all needs met. Assessment Current Status: Poor Progress Max A x1-2 with sit to/from stand & transfers. assist x2 supine to/from sit, max A car transfer. Pt requires frequent cues for positioning and safety and UE placement with transfers. Pt unable to take any steps on this date. PT Short Term Goals Short Term Goals Time Frame: Mar 20, 2022 Roll Left & Right: 3 (mod A) Sit to lyin (modA) Lying to sitting on side of be: 3 (modA) Sit to stand: 3 (modA) Chair/zel-vm-nixxg transfer: 3 (modA) Walk 10 feet: 3 (modA) PT Collections Curator Goals Jail Goals PT Jail Goals Time Frame: Mar 27, 2022 Roll Left & Right (QC): 3 (Rusty) Sit to Lying (QC): 3 (Rusty) Lying-Sitting on Side/Bed(QC): 3 (Rusty) Sit to Stand (QC): 3 (Rusty) Chair/Qrv-wr-Qqflr Xfer(QC): 3 (Rusty) Toilet Transfer (QC): 3 (Rusty) Car Transfer (QC): 3 (Rusty) Does the Patient Walk: No and Walking Goal IS indicated Walk 10 feet (QC): 3 (Rusty) Walk 50ft with 2 Turns (QC): 88 Walk 150 ft (QC): 88 Walking 10ft on Uneven Surface: 3 (Rusty) 1 Step (curb) (QC): 88 4 Steps (QC): 88 12 Steps (QC): 88 Picking up an Object (QC): 4 (CGA using a vice president pharmacy) Wheel 50 feet with 2 turns (QC: 4 (SBA) Wheel 150 feet: 4 (SBA) PT Plan Problem List Problem List: Activity Tolerance, Functional Strength, Balance, Gait, Transfer Treatment/Plan Treatment Plan: Continue Plan of Care Treatment Duration: Mar 27, 2022 Frequency: At least 5 of 7 days/Wk (IRF) Estimated Hrs Per Day: 1.5 hours per day Patient and/or Family Agrees t: Yes Safety Risks/Education Patient Education: Gait Training, Transfer Techniques, Correct Positioning, Safety Issues Teaching Recipient: Patient Teaching Methods: Discussion Response to Teaching: Verbalize Understanding Time Time In: 1520 Time Out: 1640 DATE: Mar 13, 2022 Total Billed Treatment Time: 80 Total Billed Treatment 1, FA x5 (80m) RANJITH CARLISLE PTA Mar 13, 2022 15:45
--- NOTE | 2022-03-13 16:01 | Occupational Therapy Eval ---
OT Evaluation-General/PLF Medical Diagnosis Admission Date Mar 13, 2022 at 15:05 Medical Diagnosis: left hip IM sam Onset Date: Mar 13, 2022 Therapy Diagnosis Therapy Diagnosis: decreased ADL status Precautions Precautions/Isolations: Fall Prevention, Standard Precautions Weight Bear Status Weight Bearing Restriction: Weight Bearing/Tolerated Location Restriction: L LE Referral Physician: Janice Garcia DO Referral Reason: Evaluation/Treatment Medical History Pertinent Medical History: HTN, Hypothroidism Additional Medical History HTN, hypothyroidism, DVT, GERD, carpal tunnel Current History ED after fall at [facility] with L hip fx, s/p IM nail 03/11/22 Social History Home: Assisted Living Entry Into Home: Level Entry ADL-Prior Level of Function SCALE: Activities may be completed with or without assistive devices. 4-Xnmbennval-dfxtxdi completes the activity by him/herself with no assistance from a helper. 5-Set-up or Clean-up Assistance-helper sets up or cleans up; patient completes activity. [place] assists only prior to or following the activity. 4-Supervision or Touching Assistance-helper provides verbal cues and/or touching/steadying and/or contact guard assistance as patient completes activi ty. Assistance may be provided throughout the activity or intermittently. 3-Partial/Moderate Assistance-helper does LESS THAN HALF the effort. [place] lifts, holds or supports trunk or limbs, but provides less than half the effort. 2-Substantial/Maximal Assistance-helper does MORE THAN HALF the effort. [place] lifts or holds trunk or limbs and provides more than half the effort. 7-Lgvduuiaq-qriyld does ALL the effort. Patient does none of the effort to complete the activity. Or, the assistance of 2 or more helpers is required for the patient to complete the activity. If activity was not attempted, code reason: 7-Patient Refused. 9-Not Applicable-not attempted and the patient did not perform the activity before the current illness, exacerbation or injury. 10-Not Attempted due to Environmental Limitations-(lack of equipment, weather restraints, etc.). 88-Not Attempted due to Medical Conditions or Safety Concerns. ADL PLOF Comments Pt reports Supervision with shower, assistance with socks at PLOF. She was able to complete slip on shoes independently, transfer with FWW independently and toilet herself. Pt does not sleep in bed, only sleeps in a lift chair insulator tester for pants. assistance washing/drying feet. 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 Pt also reports pain in BUEs from getting "sticked" at the other hospital. As soon as pt arrived, she asked if she could have a catheter tonight because she doesn't want to get up out of bed. Pt's O2 saturation 90-91% on RA, 1L O2 via NC applied per RN. Mental Status/Objective Patient Orientation: Person, Place, Time, Situation Current Glasses/Contacts: Yes Hearing Aids: No Dentures/Partials: Yes Hand Dominance: Right Upper Extremity ROM RUE shoulder flexion to approx 140 degrees, LUE shoulder flexion to approx 80 degrees. WFL BUE elbow/wrist/fingers. Upper Extremity Coordination WFL Upper Extremity Sensation Pt reports tingling/numbness bilateral hands in fingers and sometimes in arms due to being "sticked" for blood at the other hospital so many times. Upper Extremity Strength LUE grossly 3-/5, RUE grossly 3+/5 ADL-Treatment Eating (QC): 5 (set up per pt report.) Oral Hygiene (QC): 5 Shower/Bathe Self (QC): 1 Upper Body Dressing (QC): 4 Lower Body Dressing (QC): 1 On/Off Footwear (QC): 1 Toileting Hygiene (QC): 1 Other Treatments OT evaluation complete. OT/PT cotreat due to skill of 2 clinicians required that a director of rehabilitation could not perform in order to coordinate UE/LEs, decrease fall risk, and due to pt's limitations in strength, activity tolerance, mobility/transfers, and pain with movement. OT focused on ADLs, UE placement, cues for sequencing and safety. PT focused on LE placement, gross overall movement, transfers and mobility. Pt taken to room due to incontinence of urine, assist x2 to transfer to toilet. Soiled clothes doffed, total assist with LE clothing and footwear, pt able to doff shirt herself. Sponge bath and toileting complete, assist x2, then SPT to w/c, assist x2. Pt sat at sink for grooming tasks, then taken to therapy gym. Pt stood x2 in parallel bars, max A sit to stand, and max A in standing to maintain position with verbal and tactile cues. Pt retropulsive with stand to sit, requiring 2 person (1 to guide pt's hands to w/c arm rests and 1 to assist with sit). Pt able to stand ~1-2 mins each stand. Pt taken back to her room, transferred to recliner. Post tx, pt in recliner, call light in reach and all needs met. Max A x1-2 with sit to/from stand & transfers. assist x2 supine to/from sit, max A car transfer. Pt requires frequent cues for positioning and safety and UE placement with transfers. Pt unable to take any steps on this date. Pt has extreme pain in LLE causing her to be resistive to all movements, limiting pt's participation with therapy. Education OT Patient Education: Correct positioning, Energy conservation, Modified ADL techniques, Progress toward Goal/Update tx plan, Purpose of tx/functional activities, Rehab process Teaching Recipient: Patient Teaching Methods: Discussion Response to Teaching: Verbalize Understanding BIMS CAM BIMS Expression of Ideas and Wants: Without Difficulty Understanding Verbal Content: Understands Brief Interview/Mental Status: Yes IRF LYRIC BIMS: IRF LYRIC BIMS Response (Comments) Value Repitition of Three Words Three 3 Recalls Socks Yes, After Cueing (Wear) 1 Recalls Blue Yes, No Cue Required 2 Recalls Bed No, Could Not Recall 0 Year Correct 3 Month Accurate Within 5 Days 2 Day Correct 1 Total 12 CAM Mental Status Change/Baseline: 0 Inattention: 0 Disorganized thinkin Altered level of consciousness: 0 OT Short Term Goals Short Term Goals Time Frame: Mar 29, 2022 Toileting hygiene: 3 Shower/bathe self: 3 Lower body dressin Putting on/taking off footwear: 3 OT Retirement Goals Retirement Goals Time Frame: Apr 12, 2022 Acute change in mental status: 0 Inattention: 0 Disorganized thinkin Altered level of consciousness: 0 Eating (QC): 6 Oral Hygiene (QC): 6 Toileting Hygiene (QC): 4 Shower/Bathe Self (QC): 4 Upper Body Dressing (QC): 5 Lower Body Dressing (QC): 4 On/Off Footwear (QC): 4 Additional Goals: 1-Demonstrate ADL Tasks, 2-Verbalize Understanding, 3- ImproveStrength/Omari 1=Demonstrate adherence to instructed precautions during ADL tasks. 2=Patient will verbalize/demonstrate understanding of assistive devices/modifications for ADL. 3=Patient will improve strength/tolerance for activity to enable patient to perform ADL's. OT Education/Plan Problem List/Assessment Assessment: Decreased Activ Tolerance, Decreased UE Strength, Impaired Funct Balance, Impaired I ADL's, Impaired Self-Care Skills Discharge Recommendations Plan/Recommendations: Continue POC Equpiment Recommendations-D/C: Sock Aide Barriers to Progress Pt has extreme pain in LLE causing her to be resistive to all movements, limiting pt's participation with therapy. Treatment Plan/Plan of Care Patient would benefit from OT for education, treatment and training to promote independence in ADL's, mobility, safety and/or upper extremity function for ADL's. Plan of Care: ADL Retraining, Functional Mobility, Group Exercise/Act as Ind, UE Funct Exercise/Act Treatment Duration: Apr 12, 2022 Frequency: At least 5 of 7 days/Wk (IRF) Estimated Hrs Per Day: 1.5 hours per day Agreement: Yes Rehab Potential: Guarded Time Start Time: 15:00 Stop Time: 16:40 DATE: Mar 13, 2022 Total Time Billed (hr/min): 90 Billed Treatment Time 3316-5385 OT evaluation (10'), 2195-4542 PT eval (not billed), 2851-2750 Cotreat (80') 1, EVM (10'), ADL 4 (60'), FA (20') JEWELS MCCORMICK OT Mar 13, 2022 16:01
[2022-03-13] MEDS: LACTOBACILLUS ACIDOPHILUS (PROBIOTIC) CAPSULE PO SCH (16:23)
[2022-03-13] MEDS: FERROUS SULF 325 MG (IRON) TAB PO SCH (16:23)
[2022-03-13] MEDS: HYDROcodone/APAP 7.5 MG/325 MG (LORTAB, LORCET PLUS) TABLET PO PRN (16:34)
[2022-03-13 20:33] VITALS: BP 155/74
[2022-03-13] MEDS: amLODIPine 5 MG (NORVASC) TAB PO SCH (20:54)
[2022-03-13] MEDS: DOCUSATE SODIUM 100 MG (COLACE) CAP PO SCH (20:54)
[2022-03-13] MEDS: polyethylene glycoL POWDER 17 GM (MIRALAX) PACK PO SCH (20:54)
[2022-03-13] MEDS: ASPIRIN 81 MG CHEW (CHILDREN'S ASA) PO SCH (20:54)
[2022-03-13] MEDS: SENNA W/DOCUSATE (SENOKOT S) TABLET PO SCH (20:54)
[2022-03-13] MEDS: ARTIFICAL TEARS 0.4 ML UNIT DOSE (REFRESH PLUS) OU SCH (20:54)
[2022-03-14 06:21] LABS: BASOPHILS % (AUTO) 1 % (0-10); EOSINOPHILS # (AUTO) 0.4 10^3/uL (0.0-0.3); EOSINOPHILS % (AUTO) 4 % (0-10); HEMATOCRIT 26 % (35-52); HEMOGLOBIN 8.3 g/dL (11.5-16.0); LYMPHOCYTES # (AUTO) 1.3 10^3/uL (1.0-4.0); LYMPHOCYTES % (AUTO) 16 % (12-44); MEAN CORPUSCULAR HEMOGLOBIN 31 pg (25-34); MEAN CORPUSCULAR HGB CONC 32 g/dL (32-36); MEAN CORPUSCULAR VOLUME 96 fL (80-99); MEAN PLATELET VOLUME 9.9 fL (9.0-12.2); MONOCYTES # (AUTO) 1.2 10^3/uL (0.0-1.0); MONOCYTES % (AUTO) 14 % (0-12); NEUTROPHILS # (AUTO) 5.2 10^3/uL (1.8-7.8); NEUTROPHILS % (AUTO) 64 % (42-75); PLATELET COUNT 223 10^3/uL (130-400)
[2022-03-14] MEDS: KCL 20 MEQ TAB (K-DUR) PO SCH (06:23)
[2022-03-14] MEDS: MULTIVIT W/MINERALS TAB (THERAGRAN M) PO SCH (06:23)
[2022-03-14] MEDS: LEVOTHYROXINE 88 MCG (LEVOTHORID) TAB PO SCH (06:23)
[2022-03-14 06:27] LABS: ALBUMIN 2.8 GM/DL (3.2-4.5); POTASSIUM 3.7 MMOL/L (3.6-5.0)
[2022-03-14 06:28] LABS: CALCIUM 8.3 MG/DL (8.5-10.1)
[2022-03-14 06:30] LABS: TOTAL PROTEIN 5.8 GM/DL (6.4-8.2)
[2022-03-14 06:31] LABS: BILIRUBIN,TOTAL 0.7 MG/DL (0.1-1.0)
[2022-03-14 06:33] LABS: CREATININE SERUM 0.8 MG/DL (0.60-1.30)
[2022-03-14 07:47] VITALS: BP 135/61
[2022-03-14] MEDS: SENNA W/DOCUSATE (SENOKOT S) TABLET PO SCH ×2 (09:18→20:19)
[2022-03-14] MEDS: VITAMIN D3 125 MCG (5,000 UNITS) CAPSULE PO SCH (09:18)
[2022-03-14] MEDS: LOSARTAN 50 MG (COZAAR) TAB PO SCH (09:18)
[2022-03-14] MEDS: PANTOPRAZOLE 40 MG (PROTONIX) TAB PO SCH (09:18)
[2022-03-14] MEDS: ASPIRIN 81 MG CHEW (CHILDREN'S ASA) PO SCH ×2 (09:18→20:19)
[2022-03-14] MEDS: DOCUSATE SODIUM 100 MG (COLACE) CAP PO SCH ×2 (09:18→20:19)
[2022-03-14] MEDS: LACTOBACILLUS ACIDOPHILUS (PROBIOTIC) CAPSULE PO SCH ×3 (09:18→17:38)
[2022-03-14] MEDS: ARTIFICAL TEARS 0.4 ML UNIT DOSE (REFRESH PLUS) OU SCH ×2 (09:19→20:19)
[2022-03-14] MEDS: polyethylene glycoL POWDER 17 GM (MIRALAX) PACK PO SCH ×3 (09:34→20:19)
[2022-03-14] MEDS: HYDROcodone/APAP 7.5 MG/325 MG (LORTAB, LORCET PLUS) TABLET PO PRN ×2 (09:35→16:11)
--- NOTE | 2022-03-14 10:39 | Individualized Plan of Care ---
Individualized Plan of Care Rehab Nursing IPOC Order Admission Date Mar 13, 2022 at 15:05 Current Orders Orders Admission Arrival Bed Request (03/13/22 15:04) Admission Order(Inpt,Obs,Sdc) (03/13/22 15:09) Vital Signs: Per Unit Policy ( 08,16,00 (03/13/22 15:09) Kike Buck , (03/13/22 15:09) Sequential Compression Device (03/13/22 15:09) Sealer Aircraft-Inpt Rehab Con (03/13/22 15:09) Rehab Nursing Orders-Ipoc (03/13/22 15:09) Physical Therapy Rehab Orders (03/13/22 15:09) Occupational Therapy Rehab Ord (03/13/22 15:09) Speech Therapy Rehab Orders (03/13/22 15:09) Cbc With Automated Diff (03/14/22 06:00) Comprehensive Metabolic Panel (03/14/22 06:00) Precautions (Aru) (03/13/22 15:09) Weekly Weight WEEK (03/13/22 15:09) Rehab-Intensity Of Therapy (03/13/22 15:09) Initiate Admission Nursing Pro .admission (03/13/22 15:09) Alprazolam Tablet (Xanax Tablet) (03/13/22 15:15) Calcium Carbonate Chew Tablet (Antacid C (03/13/22 15:15) Diphenhydramine Tablet (Benadryl Tablet) (03/13/22 15:15) Docusate Sodium Capsule (Colace Capsule) (03/13/22 21:00) Docusate Sodium Capsule (Colace Capsule) (03/13/22 15:15) Bisacodyl Suppository (Dulcolax Supposit (03/13/22 15:15) Lactulose Oral Solution (Enulose Oral So (03/13/22 15:15) Na Phos/Na Biphos Enema (Fleet Enema Jude (03/13/22 15:15) Guaifenesin/Codeine Syrup (Robitussin Ac (03/13/22 15:15) Loperamide Tablet (Imodium Tablet) (03/13/22 15:15) Melatonin Tablet (Melatonin Tablet) (03/13/22 15:15) Polyethylene Glycol Powder Pkt (Miralax (03/13/22 21:00) Ondansetron Oral Dissolve Tab (Zofran (03/13/22 15:15) Senna S Tablet (Senokot S Tablet) (03/13/22 21:00) Acetaminophen Tablet/Caplet (Tylenol T (03/13/22 15:15) Code/Resuscitation (03/13/22 15:10) Ambulate 08,12,20 (03/13/22 15:10) Sequential Compression Device ONCE (03/13/22 15:10) Initiate Admission Nursing Pro .admission (03/13/22 15:10) Isolation Central Supply Req (03/13/22 15:10) Acetaminophen Tablet (Tylenol Tablet) (03/13/22 15:45) Amlodipine Tablet (Norvasc Tablet) (03/13/22 21:00) Aspirin Chewable Tablet (Baby Aspirin Ch (03/13/22 21:00) Cholecalciferol Capsule/Tablet (Vitamin (03/14/22 09:00) Ferrous Sulfate Tablet (Feosol Tablet) (03/13/22 15:45) Furosemide Tablet (Lasix Tablet) (03/13/22 15:45) Lactobacillus Acidophilus Cap (Acidophil (03/13/22 18:00) Losartan Tablet (Cozaar Tablet) (03/14/22 09:00) Pantoprazole Tablet (Protonix Tablet) (03/14/22 09:00) Polyethylene Glycol Powder Pkt (Miralax (03/14/22 09:00) Levothyroxine Tablet (Synthroid Tablet) (03/14/22 06:30) Therapeutic Multivitamin Tab (Vitamins, (03/14/22 07:00) Potassium Chloride (Tablet) (K Dur Table (03/14/22 07:00) Carboxymethylcell Ophth Soln (Refresh Pl (03/13/22 21:00) Hydrocodone/Apap 7.5/325 Tab (Lortab 7. (03/13/22 15:45) Sodium 2g (2000 Mg) (03/13/22 Dinner) Patient Visit (03/14/22 ) Speech Sound Lang Comp (03/14/22 ) Treat. Speech/Lang/Voice (03/14/22 ) Patient Visit (03/14/22 ) Functional Activities, Ea 15 (03/14/22 ) Exercise Therap, Ea 15 Min (03/14/22 ) Incentive Spirometry Initial (03/14/22 15:32) Incentive Spirometry (Nursing) Q2H (03/14/22 15:32) Iron Test (Fe) (03/15/22 04:17) Vitamin B 12 (03/15/22 04:17) Rehab Nursing Orders: Ongoing Assess. of Cognitive Status, Ongoing Assess. of Function Status, Bladder Management, Bladder Scan, Bladder Training, Bowel Management, Bowel Training, Disease Management & Educaiton, DVT Prophylaxis, Fall Prevention, Fluid/Electrolyte/Nutrition Mgmt, Infection Prevention, Medication Management & Education, Management of Risks & Complications, Management of Skin Intergrity, Nutrition Management, Pain Management, Patient/Family Support, Safety Management, Wound Management Intensity of Therapy to be met Patient to be seen: Min.3h per day/5 of 7d PT IPOC Problem List: Activity Tolerance, Functional Strength, Balance, Gait, Transfer Treatment Plan: Continue Plan of Care Bed Mobility, Education, Functional Activity Omari, Functional Strength, Group Therapy, Gait, Safety, Therapeutic Exercise, Transfers Treatment Duration: Mar 27, 2022 Frequency: At least 5 of 7 days/Wk (IRF) Estimated Hrs Per Day: 1.5 hours per day OT IPOC Problems: Decreased Activ Tolerance, Decreased UE Strength, Impaired Funct Balance, Impaired I ADL's, Impaired Self-Care Skills OT Treatment, Training and Edu: Yes Plan of Care: ADL Retraining, Functional Mobility, Group Exercise/Act as Ind, UE Funct Exercise/Act Treatment Duration: Apr 12, 2022 Frequency: At least 5 of 7 days/Wk (IRF) Estimated Hrs Per Day: 1.[address] IPOC Speech Therapy Treatment Plan: Discontinue ST Treatment Duration: Mar 14, 2022 Frequency: Modified Program (IRF) Estimated Hrs Per Day: Other Sealer Aircraft/Case Mgmt Sealer Aircraft/Case Managemen: Discharge Planning Dietitian/Clinical Tech Dietitian/Clinical Tech to monitor nutritional status and make changes and/or recommendations as needed and work with speech pathology on dietary upgrades as the occur. Physician IPOC Medical Issues being managed closely and that require the 24 hour availability of a physician: Recent hip fracture requiring repair in addition to acute blood loss anemia will require close monitoring due to advanced age because of high risk for decompensation Medical Issues: Bowel/Bladder Function, DVT Prophylaxis, Falls Precautions, Fluid/Electrolyte/Nutrition Balance, Infection Protection, Pain Management, Wound Care Brief Synthesis of Preadmission Screen, Post-Admission Evaluation, and Therapy Evaluations: PT and OT will focus on regaining function with use of assistive devices in addition well increase stamina with ambulation and independence in ADLs and her return back home Medical Prognosis: Good Anticipated Length of Stay: 7 days MOLLY MUIR DO Mar 14, 2022 10:39
--- NOTE | 2022-03-14 10:39 | PM&R Progress Note ---
Subjective HPI/CC On Admission Date Seen by Provider: Mar 14, 2022 Time Seen by Provider: 12:00 Subjective/Events-last exam 03/14/2022: Patient settling in well Pain is pretty well controlled with pain med No major concerns Bowel regimen No falls Review of Systems General: Fatigue, Malaise Musculoskeletal: leg pain Objective Exam Vital Signs Vital Signs Date Time Temp Pulse Resp B/P (MAP) Pulse Ox O2 Delivery O2 Flow Rate FiO2 03/14/22 20:21 Nasal Cannula 1.00 03/14/22 19:51 36.1 79 16 158/74 (102) 97 Capillary Refill : General Appearance: No Apparent Distress, WD/WN, Chronically ill, Obese HEENT: PERRL/EOMI, Normal ENT Inspection, Pharynx Normal Neck: Full Range of Motion, Normal Inspection, Non Tender, Supple, Carotid Bruit Respiratory: Chest Non Tender, Lungs Clear, Normal Breath Sounds, No Accessory Muscle Use, No Respiratory Distress Cardiovascular: Regular Rate, Rhythm, No Edema, No Gallop, No JVD, No Murmur, Normal Peripheral Pulses Gastrointestinal: Normal Bowel Sounds, No Organomegaly, No Pulsatile Mass, Non Tender, Soft Back: Normal Inspection, No CVA Tenderness, No Vertebral Tenderness Extremity: Normal Capillary Refill, Normal Inspection, Normal Range of Motion (Except left), Non Tender, No Calf Tenderness, No Pedal Edema Neurologic/Psychiatric: Alert, Oriented x3, No Motor/Sensory Deficits, Normal Mood/Affect, agricultural research engineer II-XII Norm as Tested, Abnormal Gait, Motor Weakness (Left leg) Skin: Normal Color, Warm/Dry Lymphatic: No Adenopathy Results/Procedures Lab Laboratory Tests 03/14/22 06:09 Patient resulted labs reviewed. FIM Transfers Therapy Code Descriptions/Definitions Functional [place] Measure: 0=Not Assessed/NA 4=Minimal Assistance 1=Total Assistance 5=Supervision or Setup 2=Maximal Assistance 6=Modified [place] 3=Moderate Assistance 7=Complete IndependenceSCALE: Activities may be completed with or without assistive devices. 4-Vibpzqavjs-cmikkvv completes the activity by him/herself with no assistance from a helper. 5-Set-up or Clean-up Assistance-helper sets up or cleans up; patient completes activity. [place] assists only prior to or following the activity. 4-Supervision or Touching Assistance-helper provides verbal cues and/or touching/steadying and/or contact guard assistance as patient completes activity. Assistance may be provided throughout the activity or intermittently. 3-Partial/Moderate Assistance-helper does LESS THAN HALF the effort. [place] lifts, holds or supports trunk or limbs, but provides less than half the effort. 2-Substantial/Maximal Assistance-helper does MORE THAN HALF the effort. [place] lifts or holds trunk or limbs and provides more than half the effort. 1-Wzvrnvypm-qfbinl does ALL the effort. Patient does none of the effort to complete the activity. Or, the assistance of 2 or more helpers is required for the patient to complete the activity. If activity was not attempted, code reason: 7-Patient Refused. 9-Not Applicable-not attempted and the patient did not perform the activity before the current illness, exacerbation or injury. 10-Not Attempted due to Environmental Limitations-(lack of equipment, weather restraints, etc.). 88-Not Attempted due to Medical Conditions or Safety Concerns. Roll Left to Right (QC): 2 Sit to Lying (QC): 1 Sit to Stand (QC): 2 Chair/Ffi-ko-Efcmm Xfer(QC): 1 Car Transfer (QC): 2 Gait Training Does the Patient Walk?: No and Walking Goal IS indicated Walk 10 feet (QC): 88 Walk 50 ft with 2 Turns(QC): 88 Walk 150 ft (QC): 88 Walking 10ft/uneven surface-QC: 88 Wheelchair Training Does the Pt Use a Wheelchair?: Yes Distance: 150' Wheel 50 ft with 2 turns (QC): 3 Wheel 150 ft (QC): 3 Type of Wheelchair: Manual Stair Training 1 Step (curb) (QC): 88 4 Steps (QC): 88 12 Steps (QC): 88 Balance Picking up an Object (QC): 88 ADL-Treatment Eating (QC): 5 (set up per pt report.) Oral Hygiene (QC): 5 Shower/Bathe Self (QC): 1 Upper Body Dressing (QC): 4 Lower Body Dressing (QC): 1 On/Off Footwear (QC): 1 Toileting Hygiene (QC): 1 Assessment/Plan Assessment and Plan Assess & Plan/Chief Complaint Assessment: Left femur fracture status post repair at [place] Severe chronic lower extremity edema Hypothyroidisim Anemia Hypoalbuminemia Advanced age Postop constipation Acute blood loss anemia checking iron and B12 Plan: Pain control Bowel regimen PT and OT Supportive care 03/14/2022: Pain control Therapy protocol (1) Intertrochanteric fracture of femur Status: Acute MOLLY MUIR DO Mar 14, 2022 10:38
--- NOTE | 2022-03-14 12:38 | Occupational Ther Daily Note ---
OT Current Status-Daily Note Subjective Pt alert, sitting in recliner. Switched out regular room chair with lift chair due to pt having lift chair at home that she uses throughout the day and to sleep in. Pt agrees to therapy. No c/o pain while sitting. C/o pain with movement. Mental Status/Objective Patient Orientation: Person, Place, Time, Situation Attachments: IV ADL-Treatment Therapy Code Descriptions/Definitions Functional [place] Measure: 0=Not Assessed/NA 4=Minimal Assistance 1=Total Assistance 5=Supervision or Setup 2=Maximal Assistance 6=Modified [place] 3=Moderate Assistance 7=Complete IndependenceSCALE: Activities may be completed with or without assistive devices. 6-Rtanzjsgyb-lxsptyo completes the activity by him/herself with no assistance from a helper. 5-Set-up or Clean-up Assistance-helper sets up or cleans up; patient completes activity. [place] assists only prior to or following the activity. 4-Supervision or Touching Assistance-helper provides verbal cues and/or touching/steadying and/or contact guard assistance as patient completes activity. Assistance may be provided throughout the activity or intermittently. 3-Partial/Moderate Assistance-helper does LESS THAN HALF the effort. [place] lifts, holds or supports trunk or limbs, but provides less than half the effort. 2-Substantial/Maximal Assistance-helper does MORE THAN HALF the effort. [place] lifts or holds trunk or limbs and provides more than half the effort. 4-Uxwfbhmzw-yzlgjm does ALL the effort. Patient does none of the effort to complete the activity. Or, the assistance of 2 or more helpers is required for the patient to complete the activity. If activity was not attempted, code reason: 7-Patient Refused. 9-Not Applicable-not attempted and the patient did not perform the activity before the current illness, exacerbation or injury. 10-Not Attempted due to Environmental Limitations-(lack of equipment, weather restraints, etc.). 88-Not Attempted due to Medical Conditions or Safety Concerns. See PT notes for pt's mobility progress. Other Treatment Pt propels w/c slowly from room <--> gym with assistance to turn. Pt ambulates in parallel bars-1st time ambulated 1/2 way, 2nd time ambulated rest of length of parallel bars, 3rd time ambulated full length of parallel bars. Placed blankets in w/c seat to increase height of seat. Pt completed 2 B UE exercises against gravity 1 set 10 reps with skilled instruction for correct technique and modifications due to decreased ROM and pain of L shldr. Co-treat with PT,1100- 1200, skills of 2 clinicians required to decrease fall risk, increase safety in ambulation/transfers and decrease pain with movement. PT focusing on transfers, ambulation while OT focusing on B UE placement during all tasks, functional mobility and positioning for safety and comfort. After session, pt sitting in recliner with call light/phone in reach. All needs met in room. OT Short Term Goals Short Term Goals Time Frame: Mar 29, 2022 Toileting hygiene: 3 Shower/bathe self: 3 Lower body dressin Putting on/taking off footwear: 3 OT Wire Chief Goals Fdc Goals Time Frame: Apr 12, 2022 Acute change in mental status: 0 Inattention: 0 Disorganized thinkin Altered level of consciousness: 0 Eating (QC): 6 Oral Hygiene (QC): 6 Toileting Hygiene (QC): 4 Shower/Bathe Self (QC): 4 Upper Body Dressing (QC): 5 Lower Body Dressing (QC): 4 On/Off Footwear (QC): 4 Additional Goals: 1-Demonstrate ADL Tasks, 2-Verbalize Understanding, 3- ImproveStrength/Omari 1=Demonstrate adherence to instructed precautions during ADL tasks. 2=Patient will verbalize/demonstrate understanding of assistive devices/mod ifications for ADL. 3=Patient will improve strength/tolerance for activity to enable patient to perform ADL's. OT Education/Plan Problem List/Assessment Assessment: Decreased Activ Tolerance, Decreased Safety Aware, Decreased UE Strength, Impaired Self-Care Skills, Restricted Funct UE ROM (L) Discharge Recommendations Plan/Recommendations: Continue POC Treatment Plan/Plan of Care Patient would benefit from OT for education, treatment and training to promote independence in ADL's, mobility, safety and/or upper extremity function for ADL's. Plan of Care: ADL Retraining, Functional Mobility, Group Exercise/Act as Ind, UE Funct Exercise/Act Treatment Duration: Apr 12, 2022 Frequency: At least 5 of 7 days/Wk (IRF) Estimated Hrs Per Day: 1.5 hours per day Agreement: Yes Rehab Potential: Guarded Time Start Time: 11:00 Stop Time: 12:00 DATE: Mar 14, 2022 Total Time Billed (hr/min): 60 Billed Treatment Time 1 visit-FA 3 (45 min) EX 1 (15 min) co-treat with PT 60 min JANAE GRIJALVA Mar 14, 2022 12:38
--- NOTE | 2022-03-14 12:42 | ST Cognitive Linguistic Eval ---
Speech Evaluation-General Medical Diagnosis Left Hip IM Hua Onset Date: Mar 13, 2022 Therapy Diagnosis Therapy Diagnosis: Impaired Cognition (Baseline) Precautions Precautions: Fall, Pressure Ulcer Precautions/Isolations: Fall Prevention, Standard Precautions, Pressure Ulcer Referral Referring Physician: Dr. Garcia Reason for Referral: Evaluation/Treatment Medical History Pertinent Medical History: HTN, Hypothroidism Current History The patient is an 86 year-old female who experienced a fall resulting in a left hip fracture (s/p IM nail) on 03/11/22. Reviewed History: Yes Speech PLF-Current Status Prior Level of Function The patient reported she has had difficulties with "remembering certain things, like the name of places for awhile now." The patient does not report a recent decline or concern with her current cognition, language, or speech. Subjective The patient was seated upright in her wheelchair, awake and alert, upon entrance to her room by the clinician. The patient greeted the clinician appropriately and was agreeable to participation in the cognitive linguistic assessment. Language Eval: Auditory Comprehends Simple Yes/No Ques: Functional Indent/Objects Multiple [place]: Functional Follows 1-Step Commands: Functional Follows General Conversations: Functional Language Eval: Verbal Language Completes Spontaneous Greeting: Functional Produces Auto, Serial Info: Functional Imitates Simple Words/Phrases: Functional Word Finding: Mild Requests Basic Needs: Functional States Basic Personal Info: Functional Cognitive Patient Orientation The patient was independently oriented to self, location, month, day of the week, and year. Objective Cognitive Domain Attention: WNL Memory: Mild Problem Solving: Mild Composite Severity Rating: Mild Objective Oral Motor/Speech Production The patient does not display dysarthria or apraxia of speech at this time. The patient is 100% intelligible in known and unknown contexts. 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 The patient reported her current function is baseline and she has not experienced a decline in her recent past. Speech-Plan Treatment Plan Speech Therapy Treatment Plan: Discontinue ST Treatment Duration: Mar 14, 2022 Frequency: 1 time per week Estimated Hrs Per Day: .5 hour per day Rehab Potential: Guarded Safety Risks/Education Teaching Recipient: Patient Teaching Methods: Discussion Response to Teaching: Reinforcement Needed Education Topics Provided: Results, Recommendations, Plan of Care Time Speech Therapy Time In: 10:30 Speech Therapy Time Out: 11:00 DATE: Mar 14, 2022 Total Billed Time: 30 Billed Treatment Time 1, NORMA PINA [facility] ST Mar 14, 2022 12:42
--- NOTE | 2022-03-14 12:50 | Physical Therapy Daily Note ---
PT Daily Note-Current Subjective Pt found seated in WC upon entry. Agreed to PT. Reports that she is having shoulder pain in both arms. Does not rate pain. Pain Section J - Health Conditions 1. Rarely or not at all 2. Occasionally 3. Frequently 4. Almost constantly 8. Unable to answer Pain Effect on Sleep: 4 Pain Interference with Therapy: 4 Pain Interference w/Day-to-Day: 4 Mental Status Patient Orientation: Normal For Age Attachments: Oxygen 1L O2 taken off pre-Tx and O2 sat monitored throughout Tx. Transfers SCALE: Activities may be completed with or without assistive devices. 1-Qpqlukfjqu-fyhdikq completes the activity by him/herself with no assistance from a helper. 5-Set-up or Clean-up Assistance-helper sets up or cleans up; patient completes activity. [place] assists only prior to or following the activity. 4-Supervision or Touching Assistance-helper provides verbal cues and/or touching/steadying and/or contact guard assistance as patient completes activity. Assistance may be provided throughout the activity or intermittently. 3-Partial/Moderate Assistance-helper does LESS THAN HALF the effort. [place] lifts, holds or supports trunk or limbs, but provides less than half the effort. 2-Substantial/Maximal Assistance-helper does MORE THAN HALF the effort. [place] lifts or holds trunk or limbs and provides more than half the effort. 4-Wxhhbpnho-negeui does ALL the effort. Patient does none of the effort to complete the activity. Or, the assistance of 2 or more helpers is required for the patient to complete the activity. If activity was not attempted, code reason: 7-Patient Refused. 9-Not Applicable-not attempted and the patient did not perform the activity befo re the current illness, exacerbation or injury. 10-Not Attempted due to Environmental Limitations-(lack of equipment, weather re straints, etc.). 88-Not Attempted due to Medical Conditions or Safety Concerns. Sit to Stand (QC): 2 Chair/Dsg-po-Hvvbr Xfer(QC): 2 Pt MAX assist /c sit<->stand and chair<->chair trfs. Weight Bearing Full Weight Bearing Left Lower Extremity: Left Weight Bearing/Tolerated Gait Training Does the Patient Walk?: Yes Distance: 5, 10 Walk 10 feet (QC): 3 Gait Persons Needed: 1 Gait Assistive Device: Parallel Bars Pt MOD assist /c gait training. Amb. 15ft total in //. Wheelchair Training Does the Pt Use a Wheelchair?: Yes Wheel 50 ft with 2 turns (QC): 3 Type of Wheelchair: Manual Pt MOD assist /c WC. Wheeled 80ft total. Exercises Seated Therapy Exercises: Ankle pumps, Long arc quads Seated Reps: 10 Pt tolerated exercise well but demonstrated signs of pain /c LLE. Assessment Current Status: Fair Progress Pt tolerated Tx well but demonstrated signs of pain throughout. Pt slow to initiate movement /c gait and WC training. Co-treat /c OT. OT focus on UE strengthening and mechanics /c WC training and trfs. PT focus on LE stre ngthening and body mechanics /c gait and trfs. Continue to progress pt as tolerated per POC to increase strength, endurance, functional ability, and decrease pain. PT Short Term Goals Short Term Goals Time Frame: Mar 20, 2022 Roll Left & Right: 3 (mod A) Sit to lyin (modA) Lying to sitting on side of be: 3 (modA) Sit to stand: 3 (modA) Chair/pch-vz-hzabw transfer: 3 (modA) Walk 10 feet: 3 (modA) PT Elementary Assistant Principal Goals Mcfp Goals PT Mcfp Goals Time Frame: Mar 27, 2022 Roll Left & Right (QC): 3 (Rusty) Sit to Lying (QC): 3 (Rusty) Lying-Sitting on Side/Bed(QC): 3 (Rusty) Sit to Stand (QC): 3 (Rusty) Chair/Wtj-kp-Pkbox Xfer(QC): 3 (Rusty) Toilet Transfer (QC): 3 (Rusty) Car Transfer (QC): 3 (Rusty) Does the Patient Walk: No and Walking Goal IS indicated Walk 10 feet (QC): 3 (Rusty) Walk 50ft with 2 Turns (QC): 88 Walk 150 ft (QC): 88 Walking 10ft on Uneven Surface: 3 (Rusty) 1 Step (curb) (QC): 88 4 Steps (QC): 88 12 Steps (QC): 88 Picking up an Object (QC): 4 (CGA using a rn home health) Wheel 50 feet with 2 turns (QC: 4 (SBA) Wheel 150 feet: 4 (SBA) PT Plan Treatment/Plan Treatment Plan: Continue Plan of Care Treatment Plan: Bed Mobility, Education, Functional Activity Omari, Functional Strength, Group Therapy, Gait, Safety, Therapeutic Exercise, Transfers Treatment Duration: Mar 27, 2022 Frequency: At least 5 of 7 days/Wk (IRF) Estimated Hrs Per Day: 1.5 hours per day Patient and/or Family Agrees t: Yes Time Time In: 1100 Time Out: 1200 DATE: Mar 14, 2022 Total Billed Treatment Time: 60 Total Billed Treatment 1 visit FA 3x EX 1x Co-treat /c OT 60min Total treat time 60min JUJU MOSER PTA Mar 14, 2022 12:50
--- NOTE | 2022-03-14 13:17 | Occupational Ther Daily Note ---
OT Current Status-Daily Note Subjective Pt alert, sitting in recliner. Pt agrees to therapy. Pt states pain in only 2/10. Co-treat with PT ([id number]), skills of 2 clinicians required for safety and education with ambulation, transfers and toileting. PT focusing on mobility while OT focusing on functional mobility and ADLs. Mental Status/Objective Patient Orientation: Person, Place, Time, Situation ADL-Treatment Pt ambulates using FWW with slow shuffling gait. Mod A for sit <--> stands and toilet transfer with BSC over toilet. Pt requires assistance for manipulating clothing and cleansing buttocks due to pt unable to offload wt from hands on FWW. After session, pt sitting in recliner with call light/phone in reach. All needs met in room. Therapy Code Descriptions/Definitions Functional [place] Measure: 0=Not Assessed/NA 4=Minimal Assistance 1=Total Assistance 5=Supervision or Setup 2=Maximal Assistance 6=Modified [place] 3=Moderate Assistance 7=Complete IndependenceSCALE: Activities may be completed with or without assistive devices. 8-Dtebqfrlrs-gqjezho completes the activity by him/herself with no assistance from a helper. 5-Set-up or Clean-up Assistance-helper sets up or cleans up; patient completes activity. [place] assists only prior to or following the activity. 4-Supervision or Touching Assistance-helper provides verbal cues and/or touching/steadying and/or contact guard assistance as patient completes activity. Assistance may be provided throughout the activity or intermittently. 3-Partial/Moderate Assistance-helper does LESS THAN HALF the effort. [place] lifts, holds or supports trunk or limbs, but provides less than half the effort. 2-Substantial/Maximal Assistance-helper does MORE THAN HALF the effort. [place] lifts or holds trunk or limbs and provides more than half the effort. 2-Cefuoirta-uucptp does ALL the effort. Patient does none of the effort to complete the activity. Or, the assistance of 2 or more helpers is required for the patient to complete the activity. If activity was not attempted, code reason: 7-Patient Refused. 9-Not Applicable-not attempted and the patient did not perform the activity before the current illness, exacerbation or injury. 10-Not Attempted due to Environmental Limitations-(lack of equipment, weather restraints, etc.). 88-Not Attempted due to Medical Conditions or Safety Concerns. Toileting Hygiene (QC): 2 Toilet Transfer (QC): 3 OT Short Term Goals Short Term Goals Time Frame: Mar 29, 2022 Toileting hygiene: 3 Shower/bathe self: 3 Lower body dressin Putting on/taking off footwear: 3 OT Skilled Nursing Goals Hydro[employer] Manufacturing Supervisor Goals Time Frame: Apr 12, 2022 Acute change in mental status: 0 Inattention: 0 Disorganized thinkin Altered level of consciousness: 0 Eating (QC): 6 Oral Hygiene (QC): 6 Toileting Hygiene (QC): 4 Shower/Bathe Self (QC): 4 Upper Body Dressing (QC): 5 Lower Body Dressing (QC): 4 On/Off Footwear (QC): 4 Additional Goals: 1-Demonstrate ADL Tasks, 2-Verbalize Understanding, 3-ImproveStrength/Omari 1=Demonstrate adherence to instructed precautions during ADL tasks. 2=Patient will verbalize/demonstrate understanding of assistive devices/modifications for ADL. 3=Patient will improve strength/tolerance for activity to enable patient to perform ADL's. OT Education/Plan Problem List/Assessment Assessment: Decreased Activ Tolerance, Decreased UE Strength, Impaired Self- Care Skills Discharge Recommendations Plan/Recommendations: Continue POC Treatment Plan/Plan of Care Patient would benefit from OT for education, treatment and training to promote independence in ADL's, mobility, safety and/or upper extremity function for ADL's. Plan of Care: ADL Retraining, Functional Mobility, Group Exercise/Act as Ind, UE Funct Exercise/Act Treatment Duration: Apr 12, 2022 Frequency: At least 5 of 7 days/Wk (IRF) Estimated Hrs Per Day: 1.5 hours per day Agreement: Yes Rehab Potential: Guarded Time Start Time: 13:00 Stop Time: 13:15 DATE: Mar 14, 2022 Total Time Billed (hr/min): 15 Billed Treatment Time 1 visit-ADL 1 (15 min) co-treat with PT 15 min JANAE GRIJALVA Mar 14, 2022 13:17
--- NOTE | 2022-03-14 13:54 | Physical Therapy Daily Note ---
PT Daily Note-Current Subjective Pt found seated in recliner upon entry. Agreed to PT. Does not rate or describe any change in pain. Pain Section J - Health Conditions 1. Rarely or not at all 2. Occasionally 3. Frequently 4. Almost constantly 8. Unable to answer Pain Effect on Sleep: 4 Pain Interference with Therapy: 4 Pain Interference w/Day-to-Day: 4 Mental Status Patient Orientation: Normal For Age Transfers SCALE: Activities may be completed with or without assistive devices. 1-Ydetplpfsw-lmqptud completes the activity by him/herself with no assistance from a helper. 5-Set-up or Clean-up Assistance-helper sets up or cleans up; patient completes activity. [place] assists only prior to or following the activity. 4-Supervision or Touching Assistance-helper provides verbal cues and/or touching/steadying and/or contact guard assistance as patient completes activity. Assistance may be provided throughout the activity or intermittently. 3-Partial/Moderate Assistance-helper does LESS THAN HALF the effort. [place] lifts, holds or supports trunk or limbs, but provides less than half the effort. 2-Substantial/Maximal Assistance-helper does MORE THAN HALF the effort. [place] lifts or holds trunk or limbs and provides more than half the effort. 1-Idvoyjzch-ntnool does ALL the effort. Patient does none of the effort to complete the activity. Or, the assistance of 2 or more helpers is required for the patient to complete the activity. If activity was not attempted, code reason: 7-Patient Refused. 9-Not Applicable-not attempted and the patient did not perform the activity before the current illness, exacerbation or injury. 10-Not Attempted due to Environmental Limitations-(lack of equipment, weather restraints, etc.). 88-Not Attempted due to Medical Conditions or Safety Concerns. Sit to Stand (QC): 3 Toilet Transfer (QC): 3 Pt MOD assist /c sit<->stand and toilet trf. Weight Bearing Full Weight Bearing Left Lower Extremity: Left Weight Bearing/Tolerated Gait Training Does the Patient Walk?: Yes Distance: 10 Walk 10 feet (QC): 3 Gait Persons Needed: 1 Gait Assistive Device: FWW Pt MOD assist /c gait training. Amb. 10ft total /c FWW. Wheelchair Training Does the Pt Use a Wheelchair?: No Assessment Current Status: Fair Progress Pt tolerated Tx well /c no reports of increased pain. Pt slow to initiate moveme nts during trfs and gait training. OT co-treat for safety and skilled intervention of therapy. Continue to progress pt as tolerated to increase functional ability and decrease pain. PT Short Term Goals Short Term Goals Time Frame: Mar 20, 2022 Roll Left & Right: 3 (mod A) Sit to lyin (modA) Lying to sitting on side of be: 3 (modA) Sit to stand: 3 (modA) Chair/hpe-oo-rovbt transfer: 3 (modA) Walk 10 feet: 3 (modA) PT Shelter Goals Shelter Goals PT Equip Tech Goals Time Frame: Mar 27, 2022 Roll Left & Right (QC): 3 (Rusty) Sit to Lying (QC): 3 (Rusty) Lying-Sitting on Side/Bed(QC): 3 (Rusty) Sit to Stand (QC): 3 (Rusty) Chair/Czc-pj-Onrsd Xfer(QC): 3 (Rusty) Toilet Transfer (QC): 3 (Rusty) Car Transfer (QC): 3 (Rusty) Does the Patient Walk: No and Walking Goal IS indicated Walk 10 feet (QC): 3 (Rusty) Walk 50ft with 2 Turns (QC): 88 Walk 150 ft (QC): 88 Walking 10ft on Uneven Surface: 3 (Rusty) 1 Step (curb) (QC): 88 4 Steps (QC): 88 12 Steps (QC): 88 Picking up an Object (QC): 4 (CGA using a mdm sr) Wheel 50 feet with 2 turns (QC: 4 (SBA) Wheel 150 feet: 4 (SBA) PT Plan Treatment/Plan Treatment Plan: Continue Plan of Care Treatment Plan: Bed Mobility, Education, Functional Activity Omari, Functional Strength, Group Therapy, Gait, Safety, Therapeutic Exercise, Transfers Treatment Duration: Mar 27, 2022 Frequency: At least 5 of 7 days/Wk (IRF) Estimated Hrs Per Day: 1.5 hours per day Patient and/or Family Agrees t: Yes Time Time In: 1300 Time Out: 1315 DATE: Mar 14, 2022 Total Billed Treatment Time: 15 Total Billed Treatment 1 visit FA JUJU Vo ORTHOTIST/PROSTHETIST Mar 14, 2022 13:54
[2022-03-14 19:51] VITALS: BP 158/74
[2022-03-14] MEDS: amLODIPine 5 MG (NORVASC) TAB PO SCH (20:19)
[2022-03-15] MEDS: HYDROcodone/APAP 7.5 MG/325 MG (LORTAB, LORCET PLUS) TABLET PO PRN ×3 (03:16→14:44)
--- NOTE | 2022-03-15 05:25 | PM&R Progress Note ---
Subjective HPI/CC On Admission Date Seen by Provider: Mar 15, 2022 Time Seen by Provider: 12:00 Subjective/Events-last exam 03/15/2022: Patient doing well Took a shower Dulcolax suppository will be ordered for constipation continues Pain is controlled 03/14/2022: Patient settling in well Pain is pretty well controlled with pain med No major concerns Bowel regimen No falls Review of Systems General: Fatigue, Malaise Neurological: Weakness, Incoordination Objective Exam Vital Signs Vital Signs Date Time Temp Pulse Resp B/P (MAP) Pulse Ox O2 Delivery O2 Flow Rate FiO2 03/15/22 09:00 Nasal Cannula 1.00 03/15/22 07:09 36.8 72 16 138/72 (94) 98 Capillary Refill : General Appearance: No Apparent Distress, WD/WN, Chronically ill, Obese HEENT: PERRL/EOMI, Normal ENT Inspection, Pharynx Normal Neck: Full Range of Motion, Normal Inspection, Non Tender, Supple, Carotid Bruit Respiratory: Chest Non Tender, Lungs Clear, Normal Breath Sounds, No Accessory Muscle Use, No Respiratory Distress Cardiovascular: Regular Rate, Rhythm, No Edema, No Gallop, No JVD, No Murmur, Normal Peripheral Pulses Gastrointestinal: Normal Bowel Sounds, No Organomegaly, No Pulsatile Mass, Non Tender, Soft Back: Normal Inspection, No CVA Tenderness, No Vertebral Tenderness Extremity: Normal Capillary Refill, Normal Inspection, Normal Range of Motion (Except left), Non Tender, No Calf Tenderness, No Pedal Edema Neurologic/Psychiatric: Alert, Oriented x3, No Motor/Sensory Deficits, Normal Mood/Affect, 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 FIM Transfers Therapy Code Descriptions/Definitions Functional [place] Measure: 0=Not Assessed/NA 4=Minimal Assistance 1=Total Assistance 5=Supervision or Setup 2=Maximal Assistance 6=Modified [place] 3=Moderate Assistance 7=Complete IndependenceSCALE: Activities may be completed with or without assistive devices. 5-Bnwdlsmepy-kkyopyc completes the activity by him/herself with no assistance from a helper. 5-Set-up or Clean-up Assistance-helper sets up or cleans up; patient completes activity. [place] assists only prior to or following the activity. 4-Supervision or Touching Assistance-helper provides verbal cues and/or touching/steadying and/or contact guard assistance as patient completes activity. Assistance may be provided throughout the activity or intermittently. 3-Partial/Moderate Assistance-helper does LESS THAN HALF the effort. [place] lifts, holds or supports trunk or limbs, but provides less than half the effort. 2-Substantial/Maximal Assistance-helper does MORE THAN HALF the effort. [place] lifts or holds trunk or limbs and provides more than half the effort. 4-Hdnhftyic-cxfiyf does ALL the effort. Patient does none of the effort to complete the activity. Or, the assistance of 2 or more helpers is required for the patient to complete the activity. If activity was not attempted, code reason: 7-Patient Refused. 9-Not Applicable-not attempted and the patient did not perform the activity before the current illness, exacerbation or injury. 10-Not Attempted due to Environmental Limitations-(lack of equipment, weather restraints, etc.). 88-Not Attempted due to Medical Conditions or Safety Concerns. Roll Left to Right (QC): 2 Sit to Lying (QC): 1 Sit to Stand (QC): 3 Chair/Mpr-mx-Taqfp Xfer(QC): 2 Car Transfer (QC): 2 Gait Training Does the Patient Walk?: Yes Distance: 10 Walk 10 feet (QC): 3 Walk 50 ft with 2 Turns(QC): 88 Walk 150 ft (QC): 88 Walking 10ft/uneven surface-QC: 88 Gait Persons Needed: 1 Gait Assistive Device: FWW Wheelchair Training Does the Pt Use a Wheelchair?: No Distance: 150' Wheel 50 ft with 2 turns (QC): 3 Wheel 150 ft (QC): 3 Type of Wheelchair: Manual Stair Training 1 Step (curb) (QC): 88 4 Steps (QC): 88 12 Steps (QC): 88 Balance Picking up an Object (QC): 88 ADL-Treatment Eating (QC): 5 (set up per pt report.) Oral Hygiene (QC): 5 Shower/Bathe Self (QC): 1 Upper Body Dressing (QC): 4 Lower Body Dressing (QC): 1 On/Off Footwear (QC): 1 Toileting Hygiene (QC): 2 Toilet Transfer (QC): 3 Assessment/Plan Assessment and Plan Assess & Plan/Chief Complaint Assessment: Left femur fracture status post repair at [place] Severe chronic lower extremity edema Hypothyroidisim Anemia Hypoalbuminemia Advanced age Postop constipation Acute blood loss anemia checking iron and B12 Postop constipation Plan: Pain control Bowel regimen PT and OT Supportive care 03/14/2022: Pain control Therapy protocol 03/15/2022: Check iron and B12 Monitor pain Bowel regimen (1) Intertrochanteric fracture of femur Status: Acute MOLLY MUIR DO Mar 15, 2022 05:25
[2022-03-15] MEDS: KCL 20 MEQ TAB (K-DUR) PO SCH (06:07)
[2022-03-15] MEDS: LEVOTHYROXINE 88 MCG (LEVOTHORID) TAB PO SCH (06:07)
[2022-03-15] MEDS: MULTIVIT W/MINERALS TAB (THERAGRAN M) PO SCH (06:07)
[2022-03-15 07:09] VITALS: BP 138/72
[2022-03-15] MEDS: polyethylene glycoL POWDER 17 GM (MIRALAX) PACK PO SCH ×3 (08:27→22:16)
[2022-03-15] MEDS: VITAMIN D3 125 MCG (5,000 UNITS) CAPSULE PO SCH (08:38)
[2022-03-15] MEDS: PANTOPRAZOLE 40 MG (PROTONIX) TAB PO SCH (08:38)
[2022-03-15] MEDS: DOCUSATE SODIUM 100 MG (COLACE) CAP PO SCH ×2 (08:38→22:17)
[2022-03-15] MEDS: LOSARTAN 50 MG (COZAAR) TAB PO SCH (08:38)
[2022-03-15] MEDS: LACTOBACILLUS ACIDOPHILUS (PROBIOTIC) CAPSULE PO SCH ×3 (08:38→16:23)
[2022-03-15] MEDS: ARTIFICAL TEARS 0.4 ML UNIT DOSE (REFRESH PLUS) OU SCH ×2 (08:38→22:16)
[2022-03-15] MEDS: ASPIRIN 81 MG CHEW (CHILDREN'S ASA) PO SCH ×2 (08:38→22:16)
[2022-03-15] MEDS: SENNA W/DOCUSATE (SENOKOT S) TABLET PO SCH ×2 (08:40→22:17)
[2022-03-15] MEDS ORDERED: BISACODYL 10 MG SUPP (DULCOLAX) PR PRN (10:30)
[2022-03-15] MEDS ORDERED: BISACODYL 10 MG SUPP (DULCOLAX) PR ONE (10:30)
--- NOTE | 2022-03-15 10:35 | Occupational Ther Daily Note ---
OT Current Status-Daily Note Subjective Pt alert, finishing up with PT. Took over care from SOILS ENGINEER. Pt states that pain is 4.5/10 and is excited that it is that low. Pt agrees to therapy. Mental Status/Objective Patient Orientation: Person, Place, Time, Situation Attachments: Oxygen (1L, pt only wants to where it when she feels she needs it.) ADL-Treatment Pt agrees to shower. Pt states that she has already completed oral care prior to therapy. Mod A for sit<->stand throughout session. Once pt is stabilized on feet with FWW, pt is able to unload wt from hands to complete clothing manipulation and cleansing for toileting. Pt has elevated surface (BSC) over toilet. Toileting min A. Pt states that [facility] assists pt with donning/doffing socks, assists with bathing feet, assists with lower body dressing after a shower. Pt stated that at [facility], pt able to complete all dressing except socks by self using AE. Pt not interested in utilizing sock aide due to tightness of compression socks. Pt able to cleanse all areas except buttocks and lower legs/feet sitting on BSC in shower, assist with drying lower legs/feet and buttocks. Educated pt on modified upper body dressing technique to allow for minimal ROM L shldr, pt demonstrated understanding(min A upper body dressing). Max A for lower body dressing. Dependent footwear. After session, pt sitting in recliner with call light/phone in reach. All needs met in room. Therapy Code Descriptions/Definitions Functional [place] Measure: 0=Not Assessed/NA 4=Minimal Assistance 1=Total Assistance 5=Supervision or Setup 2=Maximal Assistance 6=Modified [place] 3=Moderate Assistance 7=Complete IndependenceSCALE: Activities may be completed with or without assistive devices. 7-Dnlbmmyqed-lmqlwkf completes the activity by him/herself with no assistance from a helper. 5-Set-up or Clean-up Assistance-helper sets up or cleans up; patient completes activity. [place] assists only prior to or following the activity. 4-Supervision or Touching Assistance-helper provides verbal cues and/or touch ing/steadying and/or contact guard assistance as patient completes activity. Assistance may be provided throughout the activity or intermittently. 3-Partial/Moderate Assistance-helper does LESS THAN HALF the effort. [place] lifts, holds or supports trunk or limbs, but provides less than half the effort. 2-Substantial/Maximal Assistance-helper does MORE THAN HALF the effort. [place] lifts or holds trunk or limbs and provides more than half the effort. 9-Wdqdrmkoo-cepxqj does ALL the effort. Patient does none of the effort to complete the activity. Or, the assistance of 2 or more helpers is required for the patient to complete the activity. If activity was not attempted, code reason: 7-Patient Refused. 9-Not Applicable-not attempted and the patient did not perform the activity before the current illness, exacerbation or injury. 10-Not Attempted due to Environmental Limitations-(lack of equipment, weather restraints, etc.). 88-Not Attempted due to Medical Conditions or Safety Concerns. Shower/Bathe Self (QC): 3 Upper Body Dressing (QC): 3 Lower Body Dressing (QC): 2 On/Off Footwear: 1 Toileting Hygiene (QC): 3 Toilet Transfer (QC): 3 OT Short Term Goals Short Term Goals Time Frame: Mar 29, 2022 Toileting hygiene: 3 Shower/bathe self: 3 Lower body dressin Putting on/taking off footwear: 3 OT Blocker [employer] Forms Goals Blocker [employer] Goals Time Frame: Apr 12, 2022 Acute change in mental status: 0 Inattention: 0 Disorganized thinkin Altered level of consciousness: 0 Eating (QC): 6 Oral Hygiene (QC): 6 Toileting Hygiene (QC): 4 Shower/Bathe Self (QC): 4 Upper Body Dressing (QC): 5 Lower Body Dressing (QC): 4 On/Off Footwear (QC): 4 Additional Goals: 1-Demonstrate ADL Tasks, 2-Verbalize Understanding, 3- ImproveStrength/Omari 1=Demonstrate adherence to instructed precautions during ADL tasks. 2=Patient will verbalize/demonstrate understanding of assistive devices/modifications for ADL. 3=Patient will improve strength/tolerance for activity to enable patient to perform ADL's. OT Education/Plan Problem List/Assessment Assessment: Decreased Activ Tolerance, Decreased UE Strength, Impaired Funct Balance, Impaired Self-Care Skills, Restricted Funct UE ROM Discharge Recommendations Plan/Recommendations: Continue POC Treatment Plan/Plan of Care Patient would benefit from OT for education, treatment and training to promote independence in ADL's, mobility, safety and/or upper extremity function for ADL's. Plan of Care: ADL Retraining, Functional Mobility, Group Exercise/Act as Ind, UE Funct Exercise/Act Treatment Duration: Apr 12, 2022 Frequency: At least 5 of 7 days/Wk (IRF) Estimated Hrs Per Day: 1.5 hours per day Agreement: Yes Rehab Potential: Guarded Time Start Time: 09:00 Stop Time: 10:30 DATE: Mar 15, 2022 Total Time Billed (hr/min): 90 Billed Treatment Time 1 visit-ADL 6 (90 min) JANAE GRIJALVA Mar 15, 2022 10:35
--- NOTE | 2022-03-15 12:44 | Physical Therapy Daily Note ---
PT Daily Note-Current Subjective Pt found seated in recliner upon entry. Agreed to PT. States that her L hip does not feel much better than it did yesterday. Reports that she slept well last night. Rates pain 8/10 pre-Tx but does not describe. Pain Numeric Pain Scale: 8 Location: Left Location Body Site: Hip Section J - Health Conditions 1. Rarely or not at all 2. Occasionally 3. Frequently 4. Almost constantly 8. Unable to answer Pain Effect on Sleep: 4 Pain Interference with Therapy: 4 Pain Interference w/Day-to-Day: 4 Mental Status Patient Orientation: Normal For Age Transfers SCALE: Activities may be completed with or without assistive devices. 1-Chjjesycvk-vrzswea completes the activity by him/herself with no assistance from a helper. 5-Set-up or Clean-up Assistance-helper sets up or cleans up; patient completes activity. [place] assists only prior to or following the activity. 4-Supervision or Touching Assistance-helper provides verbal cues and/or touching/steadying and/or contact guard assistance as patient completes activity. Assistance may be provided throughout the activity or intermittently. 3-Partial/Moderate Assistance-helper does LESS THAN HALF the effort. [place] lifts, holds or supports trunk or limbs, but provides less than half the effort. 2-Substantial/Maximal Assistance-helper does MORE THAN HALF the effort. [place] lifts or holds trunk or limbs and provides more than half the effort. 1-Miifqlnno-yoppuv does ALL the effort. Patient does none of the effort to complete the activity. Or, the assistance of 2 or more helpers is required for the patient to complete the activity. If activity was not attempted, code reason: 7-Patient Refused. 9-Not Applicable-not attempted and the patient did not perform the activity before the current illness, exacerbation or injury. 10-Not Attempted due to Environmental Limitations-(lack of equipment, weather restraints, etc.). 88-Not Attempted due to Medical Conditions or Safety Concerns. Sit to Stand (QC): 3 Toilet Transfer (QC): 3 Pt MOD assist /c sit<->stand and toilet trfs. Weight Bearing Full Weight Bearing Left Lower Extremity: Left Weight Bearing/Tolerated Gait Training Does the Patient Walk?: Yes Distance: 10, 10 Walk 10 feet (QC): 4 Gait Persons Needed: 1 Gait Assistive Device: FWW Pt CGA /c gait training. Amb. 20ft total. Wheelchair Training Does the Pt Use a Wheelchair?: Yes Type of Wheelchair: Manual Exercises Seated Therapy Exercises: Ankle pumps, Long arc quads, Hip flexion, Hip abd/add Seated Reps: 15 AAROM /c hip flex and abd/add. NuStep Minutes: 3 NuStep Workload: 1 Assessment Current Status: Fair Progress Pt displays signs of pain throughout Tx. Unable to tolerate nustep d/t pain. Pt very slow to complete trfs. Continue to progress pt as tolerated per POC to increase strength, endurance, functional ability, and decrease pain. PT Short Term Goals Short Term Goals Time Frame: Mar 20, 2022 Roll Left & Right: 3 (mod A) Sit to lyin (modA) Lying to sitting on side of be: 3 (modA) Sit to stand: 3 (modA) Chair/fcg-eh-dxpnj transfer: 3 (modA) Walk 10 feet: 3 (modA) PT [facility] Goals [place] Goals PT [facility] Goals Time Frame: Mar 27, 2022 Roll Left & Right (QC): 3 (Rusty) Sit to Lying (QC): 3 (Rusty) Lying-Sitting on Side/Bed(QC): 3 (Rusty) Sit to Stand (QC): 3 (Rusty) Chair/Xjb-jr-Smwvr Xfer(QC): 3 (Rusty) Toilet Transfer (QC): 3 (Rusty) Car Transfer (QC): 3 (Rusty) Does the Patient Walk: No and Walking Goal IS indicated Walk 10 feet (QC): 3 (Rusty) Walk 50ft with 2 Turns (QC): 88 Walk 150 ft (QC): 88 Walking 10ft on Uneven Surface: 3 (Rusty) 1 Step (curb) (QC): 88 4 Steps (QC): 88 12 Steps (QC): 88 Picking up an Object (QC): 4 (CGA using a yarder puncher) Wheel 50 feet with 2 turns (QC: 4 (SBA) Wheel 150 feet: 4 (SBA) PT Plan Treatment/Plan Treatment Plan: Continue Plan of Care Treatment Plan: Bed Mobility, Education, Functional Activity Omari, Functional Strength, Group Therapy, Gait, Safety, Therapeutic Exercise, Transfers Treatment Duration: Mar 27, 2022 Frequency: At least 5 of 7 days/Wk (IRF) Estimated Hrs Per Day: 1.5 hours per day Patient and/or Family Agrees t: Yes Time Time In: 0800 Time Out: 0900 DATE: Mar 15, 2022 Total Billed Treatment Time: 60 Total Billed Treatment 1 visit FA 3x EX 1x JUJU MOSER PTA Mar 15, 2022 12:44
--- NOTE | 2022-03-15 12:55 | Physical Therapy Daily Note ---
PT Daily Note-Current Subjective Pt found seated in recliner upon entry. Agreed to PT. States that her L hip dressing was changed today and now it feels a little better. Reports that she wants to be able to take herself to the bathroom alone. Does not rate or describe pain. Pain Section J - Health Conditions 1. Rarely or not at all 2. Occasionally 3. Frequently 4. Almost constantly 8. Unable to answer Pain Effect on Sleep: 4 Pain Interference with Therapy: 4 Pain Interference w/Day-to-Day: 4 Mental Status Patient Orientation: Normal For Age Transfers SCALE: Activities may be completed with or without assistive devices. 2-Jjdgklspas-vnciwux completes the activity by him/herself with no assistance fr om a helper. 5-Set-up or Clean-up Assistance-helper sets up or cleans up; patient completes activity. [place] assists only prior to or following the activity. 4-Supervision or Touching Assistance-helper provides verbal cues and/or touching/steadying and/or contact guard assistance as patient completes activity. Assistance may be provided throughout the activity or intermittently. 3-Partial/Moderate Assistance-helper does LESS THAN HALF the effort. [place] lifts, holds or supports trunk or limbs, but provides less than half the effort. 2-Substantial/Maximal Assistance-helper does MORE THAN HALF the effort. [place] lifts or holds trunk or limbs and provides more than half the effort. 4-Fwqqrptvg-ngfnpr does ALL the effort. Patient does none of the effort to complete the activity. Or, the assistance of 2 or more helpers is required for the patient to complete the activity. If activity was not attempted, code reason: 7-Patient Refused. 9-Not Applicable-not attempted and the patient did not perform the activity before the current illness, exacerbation or injury. 10-Not Attempted due to Environmental Limitations-(lack of equipment, weather restraints, etc.). 88-Not Attempted due to Medical Conditions or Safety Concerns. Sit to Stand (QC): 3 Toilet Transfer (QC): 3 Pt MOD assist /c sit<->stand and toilet trfs. Weight Bearing Full Weight Bearing Left Lower Extremity: Left Weight Bearing/Tolerated Gait Training Does the Patient Walk?: Yes Distance: 40 Walk 10 feet (QC): 4 Gait Persons Needed: 1 Gait Assistive Device: FWW Pt CGA /c gait training. Amb. 40ft /c FWW. Wheelchair Training Does the Pt Use a Wheelchair?: Yes Exercises Seated Therapy Exercises: Ankle pumps, Long arc quads, Hip flexion, Hamstring Curls, Hip abd/add Seated Reps: 10 Pt unable to reach full ROM during exercise d/t pain. Assessment Current Status: Fair Progress Pt demonstrated signs of pain throughout Tx. Pt able to perform trfs and gait more efficiently this visit. Unable to reach full ROM /c exercise on LLE d/t pain. Continue to progress pt as tolerated per POC to increase strength, endurance, functional ability, and decrease pain. PT Short Term Goals Short Term Goals Time Frame: Mar 20, 2022 Roll Left & Right: 3 (mod A) Sit to lyin (modA) Lying to sitting on side of be: 3 (modA) Sit to stand: 3 (modA) Chair/npe-he-zzayz transfer: 3 (modA) Walk 10 feet: 3 (modA) PT Intermediate Goals [employer] Bi Developer Goals PT Intermediate Goals Time Frame: Mar 27, 2022 Roll Left & Right (QC): 3 (Rusty) Sit to Lying (QC): 3 (Rusty) Lying-Sitting on Side/Bed(QC): 3 (Rusty) Sit to Stand (QC): 3 (Rusty) Chair/Mbr-pc-Qkfkp Xfer(QC): 3 (Rusty) Toilet Transfer (QC): 3 (Rusty) Car Transfer (QC): 3 (Rusty) Does the Patient Walk: No and Walking Goal IS indicated Walk 10 feet (QC): 3 (Rusty) Walk 50ft with 2 Turns (QC): 88 Walk 150 ft (QC): 88 Walking 10ft on Uneven Surface: 3 (Rusty) 1 Step (curb) (QC): 88 4 Steps (QC): 88 12 Steps (QC): 88 Picking up an Object (QC): 4 (CGA using a human resources benefits specialist) Wheel 50 feet with 2 turns (QC: 4 (SBA) Wheel 150 feet: 4 (SBA) PT Plan Treatment/Plan Treatment Plan: Continue Plan of Care Treatment Plan: Bed Mobility, Education, Functional Activity Omari, Functional Strength, Group Therapy, Gait, Safety, Therapeutic Exercise, Transfers Treatment Duration: Mar 27, 2022 Frequency: At least 5 of 7 days/Wk (IRF) Estimated Hrs Per Day: 1.5 hours per day Patient and/or Family Agrees t: Yes Time Time In: 1100 Time Out: 1130 DATE: Mar 15, 2022 Total Billed Treatment Time: 30 Total Billed Treatment 1 visit GT 1x EX 1x JUJU MOSER PTA Mar 15, 2022 12:55
[2022-03-15] MEDS: FERROUS SULF 325 MG (IRON) TAB PO SCH (14:44)
[2022-03-15 20:05] VITALS: BP 179/70
[2022-03-15] MEDS: amLODIPine 5 MG (NORVASC) TAB PO SCH (22:16)
[2022-03-16] VITALS (8 sets, daily range): BP systolic 164–229; BP diastolic 73–95
--- NOTE | 2022-03-16 05:52 | PM&R Progress Note ---
Subjective HPI/CC On Admission Date Seen by Provider: Mar 16, 2022 Time Seen by Provider: 06:00 Subjective/Events-last exam 03/16/2022: Patient doing well Blood pressure really elevated today Added blood pressure medicine 03/15/2022: Patient doing well Took a shower Dulcolax suppository will be ordered for constipation continues Pain is controlled 03/14/2022: Patient settling in well Pain is pretty well controlled with pain med No major concerns Bowel regimen No falls Review of Systems General: Fatigue Musculoskeletal: leg pain Objective Exam Vital Signs Vital Signs Date Time Temp Pulse Resp B/P (MAP) Pulse Ox O2 Delivery O2 Flow Rate FiO2 03/16/22 12:10 Nasal Cannula 1.00 03/16/22 11:41 73 164/73 (103) 03/16/22 08:48 36.4 18 98 Capillary Refill : General Appearance: No Apparent Distress, WD/WN, Chronically ill, Obese HEENT: PERRL/EOMI, Normal ENT Inspection, Pharynx Normal Neck: Full Range of Motion, Normal Inspection, Non Tender, Supple, Carotid Bruit Respiratory: Chest Non Tender, Lungs Clear, Normal Breath Sounds, No Accessory Muscle Use, No Respiratory Distress Cardiovascular: Regular Rate, Rhythm, No Edema, No Gallop, No JVD, No Murmur, Normal Peripheral Pulses Gastrointestinal: Normal Bowel Sounds, No Organomegaly, No Pulsatile Mass, Non Tender, Soft Back: Normal Inspection, No CVA Tenderness, No Vertebral Tenderness Extremity: Normal Capillary Refill, Normal Inspection, Normal Range of Motion (Except left), Non Tender, No Calf Tenderness, No Pedal Edema Neurologic/Psychiatric: Alert, Oriented x3, No Motor/Sensory Deficits, Normal Mood/Affect, soccer 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 FIM Transfers Therapy Code Descriptions/Definitions Functional [place] Measure: 0=Not Assessed/NA 4=Minimal Assistance 1=Total Assistance 5=Supervision or Setup 2=Maximal Assistance 6=Modified [place] 3=Moderate Assistance 7=Complete IndependenceSCALE: Activities may be completed with or without assistive devices. 1-Hgayknaesp-aimtoyt completes the activity by him/herself with no assistance from a helper. 5-Set-up or Clean-up Assistance-helper sets up or cleans up; patient completes activity. [place] assists only prior to or following the activity. 4-Supervision or Touching Assistance-helper provides verbal cues and/or touching/steadying and/or contact guard assistance as patient completes activity. Assistance may be provided throughout the activity or intermittently. 3-Partial/Moderate Assistance-helper does LESS THAN HALF the effort. [place] lifts, holds or supports trunk or limbs, but provides less than half the effort. 2-Substantial/Maximal Assistance-helper does MORE THAN HALF the effort. [place] lifts or holds trunk or limbs and provides more than half the effort. 5-Pjlabungp-ibbncl does ALL the effort. Patient does none of the effort to complete the activity. Or, the assistance of 2 or more helpers is required for the patient to complete the activity. If activity was not attempted, code reason: 7-Patient Refused. 9-Not Applicable-not attempted and the patient did not perform the activity before the current illness, exacerbation or injury. 10-Not Attempted due to Environmental Limitations-(lack of equipment, weather restraints, etc.). 88-Not Attempted due to Medical Conditions or Safety Concerns. Roll Left to Right (QC): 2 Sit to Lying (QC): 1 Sit to Stand (QC): 3 Chair/Uzj-nz-Nfogu Xfer(QC): 2 Car Transfer (QC): 2 Gait Training Does the Patient Walk?: Yes Distance: 40 Walk 10 feet (QC): 4 Walk 50 ft with 2 Turns(QC): 88 Walk 150 ft (QC): 88 Walking 10ft/uneven surface-QC: 88 Gait Persons Needed: 1 Gait Assistive Device: FWW Wheelchair Training Does the Pt Use a Wheelchair?: Yes Distance: 150' Wheel 50 ft with 2 turns (QC): 3 Wheel 150 ft (QC): 3 Type of Wheelchair: Manual Stair Training 1 Step (curb) (QC): 88 4 Steps (QC): 88 12 Steps (QC): 88 Balance Picking up an Object (QC): 88 ADL-Treatment Eating (QC): 5 (set up per pt report.) Oral Hygiene (QC): 5 Shower/Bathe Self (QC): 3 Upper Body Dressing (QC): 3 Lower Body Dressing (QC): 2 On/Off Footwear (QC): 1 Toileting Hygiene (QC): 3 Toilet Transfer (QC): 3 Assessment/Plan Assessment and Plan Assess & Plan/Chief Complaint Assessment: Left femur fracture status post repair at [place] Severe chronic lower extremity edema Hypothyroidisim Anemia Hypoalbuminemia Advanced age Postop constipation Acute blood loss anemia checking iron and B12 Postop constipation Plan: Pain control Bowel regimen PT and OT Supportive care 03/14/2022: Pain control Therapy protocol 03/15/2022: Check iron and B12 Monitor pain Bowel regimen 03/16/2022: Supportive care Continue current treatment Monitor blood pressure after addition of blood pressure meds (1) Intertrochanteric fracture of femur Status: Acute MOLLY MUIR DO Mar 16, 2022 05:52
[2022-03-16] MEDS: MULTIVIT W/MINERALS TAB (THERAGRAN M) PO SCH (06:04)
[2022-03-16] MEDS: KCL 20 MEQ TAB (K-DUR) PO SCH (06:04)
[2022-03-16] MEDS: LEVOTHYROXINE 88 MCG (LEVOTHORID) TAB PO SCH (06:04)
[2022-03-16] MEDS: DOCUSATE SODIUM 100 MG (COLACE) CAP PO SCH ×2 (07:42→20:33)
[2022-03-16] MEDS: LOSARTAN 50 MG (COZAAR) TAB PO SCH (07:42)
[2022-03-16] MEDS: LACTOBACILLUS ACIDOPHILUS (PROBIOTIC) CAPSULE PO SCH ×3 (07:42→17:52)
[2022-03-16] MEDS: PANTOPRAZOLE 40 MG (PROTONIX) TAB PO SCH (07:42)
[2022-03-16] MEDS: SENNA W/DOCUSATE (SENOKOT S) TABLET PO SCH ×2 (07:43→20:34)
[2022-03-16] MEDS: ASPIRIN 81 MG CHEW (CHILDREN'S ASA) PO SCH ×2 (07:43→20:28)
[2022-03-16] MEDS: VITAMIN D3 125 MCG (5,000 UNITS) CAPSULE PO SCH (07:43)
[2022-03-16] MEDS: ARTIFICAL TEARS 0.4 ML UNIT DOSE (REFRESH PLUS) OU SCH ×2 (07:43→20:28)
[2022-03-16] MEDS: polyethylene glycoL POWDER 17 GM (MIRALAX) PACK PO SCH ×3 (07:45→20:33)
[2022-03-16] MEDS ORDERED: cloNIDine 0.1 MG (CATAPRES) TAB PO PRN (08:45)
[2022-03-16] MEDS ORDERED: amLODIPine 5 MG (NORVASC) TAB PO ONE (08:45)
--- NOTE | 2022-03-16 13:10 | Physical Therapy Daily Note ---
PT Daily Note-Current Subjective Pt agrees to do exs in recliner as she doesn't have pants on and doesn't want to put pants on. Reports her leg is feeling better today. Pain Section J - Health Conditions 1. Rarely or not at all 2. Occasionally 3. Frequently 4. Almost constantly 8. Unable to answer Pain Effect on Sleep: 4 Pain Interference with Therapy: 4 Pain Interference w/Day-to-Day: 4 Mental Status Patient Orientation: Person, Place, Time, Situation Transfers SCALE: Activities may be completed with or without assistive devices. 3-Wbjmmnhmff-jqrczzj completes the activity by him/herself with no assistance from a helper. 5-Set-up or Clean-up Assistance-helper sets up or cleans up; patient completes activity. [place] assists only prior to or following the activity. 4-Supervision or Touching Assistance-helper provides verbal cues and/or touching/steadying and/or contact guard assistance as patient completes activity. Assistance may be provided throughout the activity or intermittently. 3-Partial/Moderate Assistance-helper does LESS THAN HALF the effort. [place] lif ts, holds or supports trunk or limbs, but provides less than half the effort. 2-Substantial/Maximal Assistance-helper does MORE THAN HALF the effort. [place] lifts or holds trunk or limbs and provides more than half the effort. 5-Vhprnddha-hyysdj does ALL the effort. Patient does none of the effort to complete the activity. Or, the assistance of 2 or more helpers is required for the patient to complete the activity. If activity was not attempted, code reason: 7-Patient Refused. 9-Not Applicable-not attempted and the patient did not perform the activity before the current illness, exacerbation or injury. 10-Not Attempted due to Environmental Limitations-(lack of equipment, weather restraints, etc.). 88-Not Attempted due to Medical Conditions or Safety Concerns. Weight Bearing Full Weight Bearing Left Lower Extremity: Left Weight Bearing/Tolerated Gait Training Does the Patient Walk?: No and Walking Goal IS indicated Exercises Supine Ex: Ankle pumps, Quad Set, Glut sets, Heel Slides, Short Arc Quads, Straight leg raise, Hip abd/add Supine Reps: 20 Seated Therapy Exercises: Ankle pumps, Long arc quads, Shoulder Abd, Hip abd/add, Glut set Seated Reps: 20 Treatments Pt perform all exs in recliner and all needs met as PT departs and call light in hand. Assessment Current Status: Good Progress Pt required cues in order to perform seated exs correctly. PT Short Term Goals Short Term Goals Time Frame: Mar 20, 2022 Roll Left & Right: 3 (mod A) Sit to lyin (modA) Lying to sitting on side of be: 3 (modA) Sit to stand: 3 (modA) Chair/noa-du-inwqr transfer: 3 (modA) Walk 10 feet: 3 (modA) PT Correction Goals Animal Husbandry Manager Goals PT Correction Goals Time Frame: Mar 27, 2022 Roll Left & Right (QC): 3 (Rusty) Sit to Lying (QC): 3 (Rusty) Lying-Sitting on Side/Bed(QC): 3 (Rusty) Sit to Stand (QC): 3 (Rusty) Chair/Qja-ml-Ccbkh Xfer(QC): 3 (Rusty) Toilet Transfer (QC): 3 (Rusty) Car Transfer (QC): 3 (Rusty) Does the Patient Walk: No and Walking Goal IS indicated Walk 10 feet (QC): 3 (Rusty) Walk 50ft with 2 Turns (QC): 88 Walk 150 ft (QC): 88 Walking 10ft on Uneven Surface: 3 (Rusty) 1 Step (curb) (QC): 88 4 Steps (QC): 88 12 Steps (QC): 88 Picking up an Object (QC): 4 (CGA using a interceptor operator) Wheel 50 feet with 2 turns (QC: 4 (SBA) Wheel 150 feet: 4 (SBA) PT Plan Problem List Problem List: Activity Tolerance, Functional Strength Treatment/Plan Treatment Plan: Continue Plan of Care Treatment Plan: Bed Mobility, Education, Functional Activity Omari, Functional Strength, Group Therapy, Gait, Safety, Therapeutic Exercise, Transfers Treatment Duration: Mar 27, 2022 Frequency: At least 5 of 7 days/Wk (IRF) Estimated Hrs Per Day: 1.5 hours per day Patient and/or Family Agrees t: Yes Safety Risks/Education Patient Education: Correct Positioning Teaching Recipient: Patient Teaching Methods: Discussion Response to Teaching: Return Demonstration Time Time In: 1145 Time Out: 1200 DATE: Mar 16, 2022 Total Billed Treatment Time: 15 Total Billed Treatment 1, Ex SHAVON DOVE OIL FIELD PUMPER Mar 16, 2022 13:10
[2022-03-16] MEDS: amLODIPine 5 MG (NORVASC) TAB PO SCH (20:28)
--- NOTE | 2022-03-17 04:48 | PM&R Progress Note ---
Subjective HPI/CC On Admission Date Seen by Provider: Mar 17, 2022 Time Seen by Provider: 06:00 Subjective/Events-last exam 03/17/2021: Patient doing well No pain is reported when she is sleeping Blood pressure is elevated Monitoring closely 03/16/2022: Patient doing well Blood pressure really elevated today Added blood pressure medicine 03/15/2022: Patient doing well Took a shower Dulcolax suppository will be ordered for constipation continues Pain is controlled 03/14/2022: Patient settling in well Pain is pretty well controlled with pain med No major concerns Bowel regimen No falls Review of Systems General: Fatigue, Malaise Musculoskeletal: leg pain Objective Exam Vital Signs Vital Signs Date Time Temp Pulse Resp B/P (MAP) Pulse Ox O2 Delivery O2 Flow Rate FiO2 03/17/22 09:00 Nasal Cannula 1.00 03/17/22 07:25 36.7 75 18 191/86 (121) 97 Capillary Refill : General Appearance: No Apparent Distress, WD/WN, Chronically ill, Obese HEENT: PERRL/EOMI, Normal ENT Inspection, Pharynx Normal Neck: Full Range of Motion, Normal Inspection, Non Tender, Supple, Carotid Bruit Respiratory: Chest Non Tender, Lungs Clear, Normal Breath Sounds, No Accessory Muscle Use, No Respiratory Distress Cardiovascular: Regular Rate, Rhythm, No Edema, No Gallop, No JVD, No Murmur, Normal Peripheral Pulses Gastrointestinal: Normal Bowel Sounds, No Organomegaly, No Pulsatile Mass, Non Tender, Soft Back: Normal Inspection, No CVA Tenderness, No Vertebral Tenderness Extremity: Normal Capillary Refill, Normal Inspection, Normal Range of Motion (Except left), Non Tender, No Calf Tenderness, No Pedal Edema Neurologic/Psychiatric: Alert, Oriented x3, No Motor/Sensory Deficits, Normal Mood/Affect, 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 FIM Transfers Therapy Code Descriptions/Definitions Functional [place] Measure: 0=Not Assessed/NA 4=Minimal Assistance 1=Total Assistance 5=Supervision or Setup 2=Maximal Assistance 6=Modified [place] 3=Moderate Assistance 7=Complete IndependenceSCALE: Activities may be completed with or without assistive devices. 0-Pcrutjswbx-epmjkrz completes the activity by him/herself with no assistance from a helper. 5-Set-up or Clean-up Assistance-helper sets up or cleans up; patient completes activity. [place] assists only prior to or following the activity. 4-Supervision or Touching Assistance-helper provides verbal cues and/or touching/steadying and/or contact guard assistance as patient completes activity. Assistance may be provided throughout the activity or intermittently. 3-Partial/Moderate Assistance-helper does LESS THAN HALF the effort. [place] lifts, holds or supports trunk or limbs, but provides less than half the effort. 2-Substantial/Maximal Assistance-helper does MORE THAN HALF the effort. [place] lifts or holds trunk or limbs and provides more than half the effort. 7-Actaytqez-svxbug does ALL the effort. Patient does none of the effort to complete the activity. Or, the assistance of 2 or more helpers is required for the patient to complete the activity. If activity was not attempted, code reason: 7-Patient Refused. 9-Not Applicable-not attempted and the patient did not perform the activity before the current illness, exacerbation or injury. 10-Not Attempted due to Environmental Limitations-(lack of equipment, weather restraints, etc.). 88-Not Attempted due to Medical Conditions or Safety Concerns. Roll Left to Right (QC): 2 Sit to Lying (QC): 1 Sit to Stand (QC): 3 Chair/Vcv-zf-Csrfw Xfer(QC): 2 Car Transfer (QC): 2 Gait Training Does the Patient Walk?: No and Walking Goal IS indicated Distance: 40 Walk 10 feet (QC): 4 Walk 50 ft with 2 Turns(QC): 88 Walk 150 ft (QC): 88 Walking 10ft/uneven surface-QC: 88 Gait Persons Needed: 1 Gait Assistive Device: FWW Wheelchair Training Does the Pt Use a Wheelchair?: Yes Distance: 150' Wheel 50 ft with 2 turns (QC): 3 Wheel 150 ft (QC): 3 Type of Wheelchair: Manual Stair Training 1 Step (curb) (QC): 88 4 Steps (QC): 88 12 Steps (QC): 88 Balance Picking up an Object (QC): 88 ADL-Treatment Eating (QC): 5 (set up per pt report.) Oral Hygiene (QC): 5 Shower/Bathe Self (QC): 3 Upper Body Dressing (QC): 3 Lower Body Dressing (QC): 2 On/Off Footwear (QC): 1 Toileting Hygiene (QC): 3 Toilet Transfer (QC): 3 Assessment/Plan Assessment and Plan Assess & Plan/Chief Complaint Assessment: Left femur fracture status post repair at [place] Severe chronic lower extremity edema Hypothyroidisim Anemia Hypoalbuminemia Advanced age Postop constipation Acute blood loss anemia checking iron and B12 Postop constipation Plan: Pain control Bowel regimen PT and OT Supportive care 03/14/2022: Pain control Therapy protocol 03/15/2022: Check iron and B12 Monitor pain Bowel regimen 03/16/2022: Supportive care Continue current treatment Monitor blood pressure after addition of blood pressure meds 03/17/2021: Blood pressure management Pain control (1) Intertrochanteric fracture of femur Status: Acute MOLLY MUIR DO Mar 17, 2022 04:48
[2022-03-17] MEDS: KCL 20 MEQ TAB (K-DUR) PO SCH (06:25)
[2022-03-17] MEDS: LEVOTHYROXINE 88 MCG (LEVOTHORID) TAB PO SCH (06:25)
[2022-03-17] MEDS: MULTIVIT W/MINERALS TAB (THERAGRAN M) PO SCH (06:25)
[2022-03-17 07:25] VITALS: BP 191/86
[2022-03-17] MEDS: polyethylene glycoL POWDER 17 GM (MIRALAX) PACK PO SCH ×3 (08:04→21:15)
[2022-03-17] MEDS: PANTOPRAZOLE 40 MG (PROTONIX) TAB PO SCH (08:55)
[2022-03-17] MEDS: ASPIRIN 81 MG CHEW (CHILDREN'S ASA) PO SCH ×2 (08:55→21:15)
[2022-03-17] MEDS: DOCUSATE SODIUM 100 MG (COLACE) CAP PO SCH ×2 (08:55→21:15)
[2022-03-17] MEDS: LACTOBACILLUS ACIDOPHILUS (PROBIOTIC) CAPSULE PO SCH ×3 (08:55→16:29)
[2022-03-17] MEDS: SENNA W/DOCUSATE (SENOKOT S) TABLET PO SCH ×2 (08:55→21:15)
[2022-03-17] MEDS: VITAMIN D3 125 MCG (5,000 UNITS) CAPSULE PO SCH (08:55)
[2022-03-17] MEDS: LOSARTAN 50 MG (COZAAR) TAB PO SCH (08:55)
[2022-03-17] MEDS: ARTIFICAL TEARS 0.4 ML UNIT DOSE (REFRESH PLUS) OU SCH ×2 (09:01→21:15)
[2022-03-17] MEDS: hydrALAZINE (APRESOLINE) 25 MG TAB PO SCH ×3 (12:11→21:15)
[2022-03-17] MEDS: FERROUS SULF 325 MG (IRON) TAB PO SCH (16:29)
[2022-03-17 19:48] VITALS: BP 177/74
[2022-03-17] MEDS: amLODIPine 5 MG (NORVASC) TAB PO SCH (21:15)
[2022-03-17] MEDS: ACETAMINOPHEN 325 MG TABLET PO PRN (21:26)
[2022-03-18] MEDS: MULTIVIT W/MINERALS TAB (THERAGRAN M) PO SCH (06:25)
[2022-03-18] MEDS: LEVOTHYROXINE 88 MCG (LEVOTHORID) TAB PO SCH (06:25)
[2022-03-18] MEDS: KCL 20 MEQ TAB (K-DUR) PO SCH ×3 (06:25→08:32)
--- NOTE | 2022-03-18 07:16 | PM&R Progress Note ---
Subjective HPI/CC On Admission Date Seen by Provider: Mar 18, 2022 Time Seen by Provider: 10:00 Subjective/Events-last exam 03/18/2021: Improved status No pain reported unless she moves BP is usually elevated she reports as it is here now Labs stable 03/17/2021: Patient doing well No pain is reported when she is sleeping Blood pressure is elevated Monitoring closely 03/16/2022: Patient doing well Blood pressure really elevated today Added blood pressure medicine 03/15/2022: Patient doing well Took a shower Dulcolax suppository will be ordered for constipation continues Pain is controlled 03/14/2022: Patient settling in well Pain is pretty well controlled with pain med No major concerns Bowel regimen No falls Review of Systems General: Fatigue, Malaise Musculoskeletal: leg pain Objective Exam Vital Signs Vital Signs Date Time Temp Pulse Resp B/P (MAP) Pulse Ox O2 Delivery O2 Flow Rate FiO2 03/18/22 20:39 37.2 86 18 120/58 (78) 96 Room Air 03/18/22 20:34 1.00 Capillary Refill : General Appearance: No Apparent Distress, WD/WN, Chronically ill, Obese HEENT: PERRL/EOMI, Normal ENT Inspection, Pharynx Normal Neck: Full Range of Motion, Normal Inspection, Non Tender, Supple, Carotid Bruit Respiratory: Chest Non Tender, Lungs Clear, Normal Breath Sounds, No Accessory Muscle Use, No Respiratory Distress Cardiovascular: Regular Rate, Rhythm, No Edema, No Gallop, No JVD, No Murmur, Normal Peripheral Pulses Gastrointestinal: Normal Bowel Sounds, No Organomegaly, No Pulsatile Mass, Non Tender, Soft Back: Normal Inspection, No CVA Tenderness, No Vertebral Tenderness Extremity: Normal Capillary Refill, Normal Inspection, Normal Range of Motion (Except left), Non Tender, No Calf Tenderness, No Pedal Edema Neurologic/Psychiatric: Alert, Oriented x3, No Motor/Sensory Deficits, Normal Mood/Affect, 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 FIM Transfers Therapy Code Descriptions/Definitions Functional [place] Measure: 0=Not Assessed/NA 4=Minimal Assistance 1=Total Assistance 5=Supervision or Setup 2=Maximal Assistance 6=Modified [place] 3=Moderate Assistance 7=Complete IndependenceSCALE: Activities may be completed with or without assistive devices. 9-Ythaczlrxq-fskpgrp completes the activity by him/herself with no assistance from a helper. 5-Set-up or Clean-up Assistance-helper sets up or cleans up; patient completes activity. [place] assists only prior to or following the activity. 4-Supervision or Touching Assistance-helper provides verbal cues and/or touchin g/steadying and/or contact guard assistance as patient completes activity. Assistance may be provided throughout the activity or intermittently. 3-Partial/Moderate Assistance-helper does LESS THAN HALF the effort. [place] lifts, holds or supports trunk or limbs, but provides less than half the effort. 2-Substantial/Maximal Assistance-helper does MORE THAN HALF the effort. [place] lifts or holds trunk or limbs and provides more than half the effort. 3-Hvsytqdog-yhtjkm does ALL the effort. Patient does none of the effort to complete the activity. Or, the assistance of 2 or more helpers is required for the patient to complete the activity. If activity was not attempted, code reason: 7-Patient Refused. 9-Not Applicable-not attempted and the patient did not perform the activity before the current illness, exacerbation or injury. 10-Not Attempted due to Environmental Limitations-(lack of equipment, weather restraints, etc.). 88-Not Attempted due to Medical Conditions or Safety Concerns. Roll Left to Right (QC): 2 Sit to Lying (QC): 1 Sit to Stand (QC): 3 Chair/Yvs-jj-Pycso Xfer(QC): 2 Car Transfer (QC): 2 Gait Training Does the Patient Walk?: No and Walking Goal IS indicated Distance: 40 Walk 10 feet (QC): 4 Walk 50 ft with 2 Turns(QC): 88 Walk 150 ft (QC): 88 Walking 10ft/uneven surface-QC: 88 Gait Persons Needed: 1 Gait Assistive Device: FWW Wheelchair Training Does the Pt Use a Wheelchair?: Yes Distance: 150' Wheel 50 ft with 2 turns (QC): 3 Wheel 150 ft (QC): 3 Type of Wheelchair: Manual Stair Training 1 Step (curb) (QC): 88 4 Steps (QC): 88 12 Steps (QC): 88 Balance Picking up an Object (QC): 88 ADL-Treatment Eating (QC): 5 (set up per pt report.) Oral Hygiene (QC): 5 Shower/Bathe Self (QC): 3 Upper Body Dressing (QC): 3 Lower Body Dressing (QC): 2 On/Off Footwear (QC): 1 Toileting Hygiene (QC): 3 Toilet Transfer (QC): 3 Assessment/Plan Assessment and Plan Assess & Plan/Chief Complaint Assessment: Left femur fracture status post repair at [place] Severe chronic lower extremity edema Hypothyroidisim Anemia Hypoalbuminemia Advanced age Postop constipation Acute blood loss anemia iron def and b12 def supplementing both Postop constipation-resolved Plan: Pain control Bowel regimen PT and OT Supportive care 03/14/2022: Pain control Therapy protocol 03/15/2022: Check iron and B12 Monitor pain Bowel regimen 03/16/2022: Supportive care Continue current treatment Monitor blood pressure after addition of blood pressure meds 03/17/2021: Blood pressure management Pain control 03/18/2021: Iron infusion tomorrow morning along with B12 (1) Intertrochanteric fracture of femur Status: Acute MOLLY MUIR DO Mar 18, 2022 07:16
[2022-03-18 07:28] LABS: BASOPHILS # (AUTO) 0.1 10^3/uL (0.0-0.1); BASOPHILS % (AUTO) 1 % (0-10); EOSINOPHILS # (AUTO) 0.4 10^3/uL (0.0-0.3); EOSINOPHILS % (AUTO) 4 % (0-10); HEMATOCRIT 30 % (35-52); HEMOGLOBIN 9.7 g/dL (11.5-16.0); LYMPHOCYTES # (AUTO) 1.6 10^3/uL (1.0-4.0); LYMPHOCYTES % (AUTO) 18 % (12-44); MEAN CORPUSCULAR HEMOGLOBIN 31 pg (25-34); MEAN CORPUSCULAR HGB CONC 32 g/dL (32-36); MEAN CORPUSCULAR VOLUME 96 fL (80-99); MEAN PLATELET VOLUME 9.4 fL (9.0-12.2); MONOCYTES % (AUTO) 11 % (0-12); NEUTROPHILS # (AUTO) 5.9 10^3/uL (1.8-7.8); NEUTROPHILS % (AUTO) 65 % (42-75); PLATELET COUNT 397 10^3/uL (130-400)
[2022-03-18 07:35] VITALS: BP 179/79
[2022-03-18 07:48] LABS: ALBUMIN 3.5 GM/DL (3.2-4.5); BILIRUBIN,TOTAL 0.7 MG/DL (0.1-1.0); CALCIUM 9.3 MG/DL (8.5-10.1); CREATININE SERUM 1.05 MG/DL (0.60-1.30); TOTAL PROTEIN 7.3 GM/DL (6.4-8.2)
[2022-03-18] MEDS: DOCUSATE SODIUM 100 MG (COLACE) CAP PO SCH ×2 (08:32→20:32)
[2022-03-18] MEDS: SENNA W/DOCUSATE (SENOKOT S) TABLET PO SCH ×2 (08:32→20:32)
[2022-03-18] MEDS: PANTOPRAZOLE 40 MG (PROTONIX) TAB PO SCH (08:32)
[2022-03-18] MEDS: ASPIRIN 81 MG CHEW (CHILDREN'S ASA) PO SCH ×2 (08:32→20:32)
[2022-03-18] MEDS: LOSARTAN 50 MG (COZAAR) TAB PO SCH (08:32)
[2022-03-18] MEDS: LACTOBACILLUS ACIDOPHILUS (PROBIOTIC) CAPSULE PO SCH ×3 (08:32→18:56)
[2022-03-18] MEDS: VITAMIN D3 125 MCG (5,000 UNITS) CAPSULE PO SCH (08:32)
[2022-03-18] MEDS: ARTIFICAL TEARS 0.4 ML UNIT DOSE (REFRESH PLUS) OU SCH ×2 (08:32→20:32)
[2022-03-18] MEDS: hydrALAZINE (APRESOLINE) 25 MG TAB PO SCH ×3 (08:32→20:32)
[2022-03-18] MEDS: polyethylene glycoL POWDER 17 GM (MIRALAX) PACK PO SCH ×3 (08:33→19:38)
--- NOTE | 2022-03-18 10:03 | Physical Therapy Daily Note ---
PT Daily Note-Current Subjective Pt sitting in recliner w/B LE elevated. Pt agrees to PT. Pt shows CHILD WELFARE MANAGER how movement is improving. Pain Location: No Pain Reported Section J - Health Conditions 1. Rarely or not at all 2. Occasionally 3. Frequently 4. Almost constantly 8. Unable to answer Pain Effect on Sleep: 2 Pain Interference with Therapy: 2 Pain Interference w/Day-to-Day: 2 Mental Status Patient Orientation: Person, Place, Situation Attachments: Oxygen (1L as needed for SOA) Transfers SCALE: Activities may be completed with or without assistive devices. 7-Zrfvhylbah-dazvefd completes the activity by him/herself with no assistance from a helper. 5-Set-up or Clean-up Assistance-helper sets up or cleans up; patient completes activity. [place] assists only prior to or following the activity. 4-Supervision or Touching Assistance-helper provides verbal cues and/or touching/steadying and/or contact guard assistance as patient completes activity. Assistance may be provided throughout the activity or intermittently. 3-Partial/Moderate Assistance-helper does LESS THAN HALF the effort. [place] lifts, holds or supports trunk or limbs, but provides less than half the effort. 2-Substantial/Maximal Assistance-helper does MORE THAN HALF the effort. [place] lifts or holds trunk or limbs and provides more than half the effort. 7-Hrspfpomy-fzkvdv does ALL the effort. Patient does none of the effort to complete the activity. Or, the assistance of 2 or more helpers is required for the patient to complete the activity. If activity was not attempted, code reason: 7-Patient Refused. 9-Not Applicable-not attempted and the patient did not perform the activity b efore the current illness, exacerbation or injury. 10-Not Attempted due to Environmental Limitations-(lack of equipment, weather restraints, etc.). 88-Not Attempted due to Medical Conditions or Safety Concerns. Sit to Stand (QC): 4 Toilet Transfer (QC): 4 Weight Bearing Full Weight Bearing Left Lower Extremity: Left Weight Bearing/Tolerated Gait Training Does the Patient Walk?: Yes Distance: 15' x2 Walk 10 feet (QC): 5 Gait Assistive Device: FWW Exercises Supine Ex: Ankle pumps, Quad Set, Glut sets, Heel Slides, Short Arc Quads, Hip abd/add Supine Reps: 15 Seated Therapy Exercises: Ankle pumps, Long arc quads, Hip flexion, Hip abd/add, Glut set Seated Reps: 15 Treatments Pt completes Supine EX to start tx. TF to standing and amb to BR. Pt is encouraged to use toilet instead of BSC and to try donning/doffing pants as well as complete pericare. Pt returns to EOB, after washing hands, to rest. Pt completes Seated EX w/RB as needed. Pt returns to recliner at end of tx as NIETO arrives. Assessment Current Status: Fair Progress Pt takes extended time to complete any task. Pt fatigues easily. PT Short Term Goals Short Term Goals Time Frame: Mar 20, 2022 Roll Left & Right: 3 (mod A) Sit to lyin (modA) Lying to sitting on side of be: 3 (modA) Sit to stand: 3 (modA) Chair/tfi-bk-xikzk transfer: 3 (modA) Walk 10 feet: 3 (modA) PT Retirement Goals [place] Assistant Goals PT Retirement Goals Time Frame: Mar 27, 2022 Roll Left & Right (QC): 3 (Rusty) Sit to Lying (QC): 3 (Rusty) Lying-Sitting on Side/Bed(QC): 3 (Rusty) Sit to Stand (QC): 3 (Rusty) Chair/Bfx-yw-Svrdq Xfer(QC): 3 (Rusty) Toilet Transfer (QC): 3 (Rusty) Car Transfer (QC): 3 (Rusty) Does the Patient Walk: No and Walking Goal IS indicated Walk 10 feet (QC): 3 (Rusty) Walk 50ft with 2 Turns (QC): 88 Walk 150 ft (QC): 88 Walking 10ft on Uneven Surface: 3 (Rusty) 1 Step (curb) (QC): 88 4 Steps (QC): 88 12 Steps (QC): 88 Picking up an Object (QC): 4 (CGA using a director statistical programming) Wheel 50 feet with 2 turns (QC: 4 (SBA) Wheel 150 feet: 4 (SBA) PT Plan Problem List Problem List: Activity Tolerance, Functional Strength Treatment/Plan Treatment Plan: Continue Plan of Care Treatment Plan: Bed Mobility, Education, Functional Activity Omari, Functional Strength, Group Therapy, Gait, Safety, Therapeutic Exercise, Transfers Treatment Duration: Mar 27, 2022 Frequency: At least 5 of 7 days/Wk (IRF) Estimated Hrs Per Day: 1.5 hours per day Patient and/or Family Agrees t: Yes Time Time In: 800 Time Out: 900 DATE: Mar 18, 2022 Total Billed Treatment Time: 60 Total Billed Treatment 1, FA (15m), GT (15m) & EX x2 (30m) RANJITH CARLISLE CHILD WELFARE MANAGER Mar 18, 2022 10:03
--- NOTE | 2022-03-18 10:40 | Occupational Ther Daily Note ---
OT Current Status-Daily Note Subjective Pt alert, sitting in recliner. Took over care from PT. Pt agrees to OT. No c/o pain. Mental Status/Objective Patient Orientation: Person, Place, Time, Situation ADL-Treatment Pt agrees to shower. Pt ambulated using FWW to bathroom with CGA for safety. Toilet transfer min A with BSC to elevate surface. CGA for pt to stand and manipulate pants and complete hygiene in standing. Pt ambulated to shower to complete shower transfer in with CGA then mod A to stand and transfer out of shower. Pt completed bathing sitting 100% of the time using shower bench, grabbar and hand held shower. Pt does have LH sponge though does not use for feet, stating that [facility] staff completes lower legs/feet bathing, donning/doffing socks. Pt states that she already completed oral care sitting in recliner. Set up for upper body dressing. Dependent with footwear. Assisted threading lower body clothing due to time then pt stood with CGA to hike pants, pt stepped forward with R foot and lost balance requiring assistance to right self. After therapy, pt sitting in recliner with call light/phone in reach. All needs met in room. Therapy Code Descriptions/Definitions Functional [place] Measure: 0=Not Assessed/NA 4=Minimal Assistance 1=Total Assistance 5=Supervision or Setup 2=Maximal Assistance 6=Modified [place] 3=Moderate Assistance 7=Complete IndependenceSCALE: Activities may be completed with or without assistive devices. 6-Ehzfcwmhii-pkenozj completes the activity by him/herself with no assistance from a helper. 5-Set-up or Clean-up Assistance-helper sets up or cleans up; patient completes activity. [place] assists only prior to or following the activity. 4-Supervision or Touching Assistance-helper provides verbal cues and/or touching/steadying and/or contact guard assistance as patient completes activity. Assistance may be provided throughout the activity or intermittently. 3-Partial/Moderate Assistance-helper does LESS THAN HALF the effort. [place] lifts, holds or supports trunk or limbs, but provides less than half the effort. 2-Substantial/Maximal Assistance-helper does MORE THAN HALF the effort. [place] lifts or holds trunk or limbs and provides more than half the effort. 6-Pbeaoosyk-dmaynw does ALL the effort. Patient does none of the effort to complete the activity. Or, the assistance of 2 or more helpers is required for the patient to complete the activity. If activity was not attempted, code reason: 7-Patient Refused. 9-Not Applicable-not attempted and the patient did not perform the activity before the current illness, exacerbation or injury. 10-Not Attempted due to Environmental Limitations-(lack of equipment, weather restraints, etc.). 88-Not Attempted due to Medical Conditions or Safety Concerns. Eating (QC): 6 Shower/Bathe Self (QC): 3 (assist for lower legs/feet) Upper Body Dressing (QC): 5 Lower Body Dressing (QC): 3 On/Off Footwear: 1 Toileting Hygiene (QC): 4 Toilet Transfer (QC): 3 OT Short Term Goals Short Term Goals Time Frame: Mar 29, 2022 Toileting hygiene: 3 Shower/bathe self: 3 Lower body dressin Putting on/taking off footwear: 3 OT Pr Manager Goals Pr Manager Goals Time Frame: Apr 12, 2022 Acute change in mental status: 0 Inattention: 0 Disorganized thinkin Altered level of consciousness: 0 Eating (QC): 6 Oral Hygiene (QC): 6 Toileting Hygiene (QC): 4 Shower/Bathe Self (QC): 4 Upper Body Dressing (QC): 5 Lower Body Dressing (QC): 4 On/Off Footwear (QC): 4 Additional Goals: 1-Demonstrate ADL Tasks, 2-Verbalize Understanding, 3- ImproveStrength/Omari 1=Demonstrate adherence to instructed precautions during ADL tasks. 2=Patient will verbalize/demonstrate understanding of assistive devices/modifications for ADL. 3=Patient will improve strength/tolerance for activity to enable patient to perform ADL's. OT Education/Plan Problem List/Assessment Assessment: Decreased Activ Tolerance, Decreased UE Strength, Impaired Self- Care Skills, Restricted Funct UE ROM Discharge Recommendations Plan/Recommendations: Continue POC Treatment Plan/Plan of Care Patient would benefit from OT for education, treatment and training to promote independence in ADL's, mobility, safety and/or upper extremity function for ADL's. Plan of Care: ADL Retraining, Functional Mobility, Group Exercise/Act as Ind, UE Funct Exercise/Act Treatment Duration: Apr 12, 2022 Frequency: At least 5 of 7 days/Wk (IRF) Estimated Hrs Per Day: 1.5 hours per day Agreement: Yes Rehab Potential: Guarded Time Start Time: 09:00 Stop Time: 10:30 DATE: Mar 18, 2022 Total Time Billed (hr/min): 90 Billed Treatment Time 1 visit-ADL 6 (90 min) JANAE GRIJALVA Mar 18, 2022 10:40
--- NOTE | 2022-03-18 14:26 | Physical Therapy Daily Note ---
PT Daily Note-Current Subjective Patient in recliner pre tx, agrees to PT reluctantly, has 6/10 pain in left hip. Pain Section J - Health Conditions 1. Rarely or not at all 2. Occasionally 3. Frequently 4. Almost constantly 8. Unable to answer Pain Effect on Sleep: 2 Pain Interference with Therapy: 2 Pain Interference w/Day-to-Day: 2 Appearance Patient in recliner post tx with nurse call, phone, tray, all needs met. Mental Status Patient Orientation: Person, Place, Situation Transfers SCALE: Activities may be completed with or without assistive devices. 5-Fegtllyjua-fznenml completes the activity by him/herself with no assistance from a helper. 5-Set-up or Clean-up Assistance-helper sets up or cleans up; patient completes activity. [place] assists only prior to or following the activity. 4-Supervision or Touching Assistance-helper provides verbal cues and/or touching/steadying and/or contact guard assistance as patient completes activity. Assistance may be provided throughout the activity or intermittently. 3-Partial/Moderate Assistance-helper does LESS THAN HALF the effort. [place] lifts, holds or supports trunk or limbs, but provides less than half the effort. 2-Substantial/Maximal Assistance-helper does MORE THAN HALF the effort. [place] lifts or holds trunk or limbs and provides more than half the effort. 4-Qjpmpxznj-yztjio does ALL the effort. Patient does none of the effort to complete the activity. Or, the assistance of 2 or more helpers is required for the patient to complete the activity. If activity was not attempted, code reason: 7-Patient Refused. 9-Not Applicable-not attempted and the patient did not perform the activity before the current illness, exacerbation or injury. 10-Not Attempted due to Environmental Limitations-(lack of equipment, weather restraints, etc.). 88-Not Attempted due to Medical Conditions or Safety Concerns. Sit to Stand (QC): 3 Chair/Lht-ne-Gbhmh Xfer(QC): 4 patient needs min assist to stand from lower surfaces, CGA to stand from lift chair Weight Bearing Full Weight Bearing Left Lower Extremity: Left Weight Bearing/Tolerated Gait Training Distance: 120'x2 Walk 10 feet (QC): 4 Walk 50 ft with 2 Turns(QC): 4 Gait Persons Needed: 1 Gait Assistive Device: FWW CGA, fair step through, decreased weight bearing on left leg, extremely slow ambulation Exercises Seated Therapy Exercises: Ankle pumps, Long arc quads, Hip flexion Seated Reps: 20 (LLE only) Treatments transfers, ambulation, LE ROM Assessment Current Status: Fair Progress no rest breaks during ambulation PT Short Term Goals Short Term Goals Time Frame: Mar 20, 2022 Roll Left & Right: 3 (mod A) Sit to lyin (modA) Lying to sitting on side of be: 3 (modA) Sit to stand: 3 (modA) Chair/uvn-fh-slisk transfer: 3 (modA) Walk 10 feet: 3 (modA) PT [place] Goals Alf Goals PT [place] Goals Time Frame: Mar 27, 2022 Roll Left & Right (QC): 3 (Rusty) Sit to Lying (QC): 3 (Rusty) Lying-Sitting on Side/Bed(QC): 3 (Rusty) Sit to Stand (QC): 3 (Rusty) Chair/Oex-iq-Luutk Xfer(QC): 3 (Rusty) Toilet Transfer (QC): 3 (Rusty) Car Transfer (QC): 3 (Rusty) Does the Patient Walk: No and Walking Goal IS indicated Walk 10 feet (QC): 3 (Rusty) Walk 50ft with 2 Turns (QC): 88 Walk 150 ft (QC): 88 Walking 10ft on Uneven Surface: 3 (Rusty) 1 Step (curb) (QC): 88 4 Steps (QC): 88 12 Steps (QC): 88 Picking up an Object (QC): 4 (CGA using a gas plant technician) Wheel 50 feet with 2 turns (QC: 4 (SBA) Wheel 150 feet: 4 (SBA) PT Plan Problem List Problem List: Activity Tolerance, Functional Strength, Safety, Balance, Gait, Transfer, Bed Mobility, ROM Treatment/Plan Treatment Plan: Continue Plan of Care Treatment Plan: Bed Mobility, Education, Functional Activity Omari, Functional Strength, Group Therapy, Gait, Safety, Therapeutic Exercise, Transfers Treatment Duration: Mar 27, 2022 Frequency: At least 5 of 7 days/Wk (IRF) Estimated Hrs Per Day: 1.5 hours per day Patient and/or Family Agrees t: Yes Safety Risks/Education Patient Education: Gait Training, Transfer Techniques, Correct Positioning, Safety Issues Teaching Recipient: Patient Teaching Methods: Demonstration, Discussion Response to Teaching: Reinforcement Needed Time Time In: 3974 Time Out: 1415 DATE: Mar 18, 2022 Total Billed Treatment Time: 30 Total Billed Treatment 1 visit EX 10' FA 20' DIAMANTE CANALES PT Mar 18, 2022 14:26
[2022-03-18] MEDS: amLODIPine 5 MG (NORVASC) TAB PO SCH (20:32)
[2022-03-18 20:39] VITALS: BP 120/58
[2022-03-18] MEDS: HYDROcodone/APAP 7.5 MG/325 MG (LORTAB, LORCET PLUS) TABLET PO PRN (21:29)
--- NOTE | 2022-03-19 05:55 | PM&R Progress Note ---
Subjective HPI/CC On Admission Date Seen by Provider: Mar 19, 2022 Time Seen by Provider: 09:00 Subjective/Events-last exam 03/19/2021: Patient doing well Blood pressure good Bowels moving Pain controlled 03/18/2021: Improved status No pain reported unless she moves BP is usually elevated she reports as it is here now Labs stable 03/17/2021: Patient doing well No pain is reported when she is sleeping Blood pressure is elevated Monitoring closely 03/16/2022: Patient doing well Blood pressure really elevated today Added blood pressure medicine 03/15/2022: Patient doing well Took a shower Dulcolax suppository will be ordered for constipation continues Pain is controlled 03/14/2022: Patient settling in well Pain is pretty well controlled with pain med No major concerns Bowel regimen No falls Review of Systems General: Fatigue, Malaise Objective Exam Vital Signs Vital Signs Date Time Temp Pulse Resp B/P (MAP) Pulse Ox O2 Delivery O2 Flow Rate FiO2 03/19/22 21:15 98 Nasal Cannula 1.00 03/19/22 19:59 36.6 72 16 132/69 (90) Capillary Refill : General Appearance: No Apparent Distress, WD/WN, Chronically ill, Obese HEENT: PERRL/EOMI, Normal ENT Inspection, Pharynx Normal Neck: Full Range of Motion, Normal Inspection, Non Tender, Supple, Carotid Bruit Respiratory: Chest Non Tender, Lungs Clear, Normal Breath Sounds, No Accessory Muscle Use, No Respiratory Distress Cardiovascular: Regular Rate, Rhythm, No Edema, No Gallop, No JVD, No Murmur, Normal Peripheral Pulses Gastrointestinal: Normal Bowel Sounds, No Organomegaly, No Pulsatile Mass, Non Tender, Soft Back: Normal Inspection, No CVA Tenderness, No Vertebral Tenderness Extremity: Normal Capillary Refill, Normal Inspection, Normal Range of Motion (Except left), Non Tender, No Calf Tenderness, No Pedal Edema Neurologic/Psychiatric: Alert, Oriented x3, No Motor/Sensory Deficits, Normal Mood/Affect, tile molder II-XII Norm as Tested, Abnormal Gait, Motor Weakness (Left leg) Skin: Normal Color, Warm/Dry Lymphatic: No Adenopathy Results/Procedures Lab Patient resulted labs reviewed. FIM Transfers Therapy Code Descriptions/Definitions Functional [place] Measure: 0=Not Assessed/NA 4=Minimal Assistance 1=Total Assistance 5=Supervision or Setup 2=Maximal Assistance 6=Modified [place] 3=Moderate Assistance 7=Complete IndependenceSCALE: Activities may be completed with or without assistive devices. 0-Okykpfgjbb-erngxil completes the activity by him/herself with no assistance from a helper. 5-Set-up or Clean-up Assistance-helper sets up or cleans up; patient completes activity. [place] assists only prior to or following the activity. 4-Supervision or Touching Assistance-helper provides verbal cues and/or touching/steadying and/or contact guard assistance as patient completes activity. Assistance may be provided throughout the activity or intermittently. 3-Partial/Moderate Assistance-helper does LESS THAN HALF the effort. [place] lifts, holds or supports trunk or limbs, but provides less than half the effort. 2-Substantial/Maximal Assistance-helper does MORE THAN HALF the effort. [place] lifts or holds trunk or limbs and provides more than half the effort. 6-[place]-qpmnzf does ALL the effort. Patient does none of the effort to complete the activity. Or, the assistance of 2 or more helpers is required for the patient to complete the activity. If activity was not attempted, code reason: 7-Patient Refused. 9-Not Applicable-not attempted and the patient did not perform the activity before the current illness, exacerbation or injury. 10-Not Attempted due to Environmental Limitations-(lack of equipment, weather restraints, etc.). 88-Not Attempted due to Medical Conditions or Safety Concerns. Roll Left to Right (QC): 2 Sit to Lying (QC): 1 Sit to Stand (QC): 3 Chair/Rpc-am-Byflw Xfer(QC): 4 Car Transfer (QC): 2 Gait Training Does the Patient Walk?: Yes Distance: 120'x2 Walk 10 feet (QC): 4 Walk 50 ft with 2 Turns(QC): 4 Walk 150 ft (QC): 88 Walking 10ft/uneven surface-QC: 88 Gait Persons Needed: 1 Gait Assistive Device: FWW Wheelchair Training Does the Pt Use a Wheelchair?: Yes Distance: 150' Wheel 50 ft with 2 turns (QC): 3 Wheel 150 ft (QC): 3 Type of Wheelchair: Manual Stair Training 1 Step (curb) (QC): 88 4 Steps (QC): 88 12 Steps (QC): 88 Balance Picking up an Object (QC): 88 ADL-Treatment Eating (QC): 6 Oral Hygiene (QC): 5 Shower/Bathe Self (QC): 3 (assist for lower legs/feet) Upper Body Dressing (QC): 5 Lower Body Dressing (QC): 3 On/Off Footwear (QC): 1 Toileting Hygiene (QC): 4 Toilet Transfer (QC): 3 Assessment/Plan Assessment and Plan Assess & Plan/Chief Complaint Assessment: Left femur fracture status post repair at [place] Severe chronic lower extremity edema Hypothyroidisim Anemia Hypoalbuminemia Advanced age Postop constipation Acute blood loss anemia iron def and b12 def supplementing both Postop constipation-resolved Plan: Pain control Bowel regimen PT and OT Supportive care 03/14/2022: Pain control Therapy protocol 03/15/2022: Check iron and B12 Monitor pain Bowel regimen 03/16/2022: Supportive care Continue current treatment Monitor blood pressure after addition of blood pressure meds 03/17/2021: Blood pressure management Pain control 03/18/2021: Iron infusion tomorrow morning along with B12 03/19/2021: Supportive care Iron infusion and B12 (1) Intertrochanteric fracture of femur Status: Acute MOLLY MUIR DO Mar 19, 2022 05:55
[2022-03-19] MEDS: MULTIVIT W/MINERALS TAB (THERAGRAN M) PO SCH (06:23)
[2022-03-19] MEDS: LEVOTHYROXINE 88 MCG (LEVOTHORID) TAB PO SCH (06:24)
[2022-03-19] MEDS: KCL 20 MEQ TAB (K-DUR) PO SCH (06:24)
[2022-03-19 07:21] VITALS: BP 167/69
[2022-03-19] MEDS: VITAMIN D3 125 MCG (5,000 UNITS) CAPSULE PO SCH (07:46)
[2022-03-19] MEDS: LOSARTAN 50 MG (COZAAR) TAB PO SCH (07:46)
[2022-03-19] MEDS: LACTOBACILLUS ACIDOPHILUS (PROBIOTIC) CAPSULE PO SCH ×3 (07:46→17:14)
[2022-03-19] MEDS: PANTOPRAZOLE 40 MG (PROTONIX) TAB PO SCH (07:46)
[2022-03-19] MEDS: ASPIRIN 81 MG CHEW (CHILDREN'S ASA) PO SCH ×2 (07:46→21:12)
[2022-03-19] MEDS: hydrALAZINE (APRESOLINE) 25 MG TAB PO SCH ×3 (07:46→21:12)
[2022-03-19] MEDS: ARTIFICAL TEARS 0.4 ML UNIT DOSE (REFRESH PLUS) OU SCH ×2 (07:47→21:12)
[2022-03-19] MEDS: DOCUSATE SODIUM 100 MG (COLACE) CAP PO SCH ×2 (07:47→21:12)
[2022-03-19] MEDS: polyethylene glycoL POWDER 17 GM (MIRALAX) PACK PO SCH ×3 (07:48→21:20)
[2022-03-19] MEDS: SENNA W/DOCUSATE (SENOKOT S) TABLET PO SCH ×2 (07:48→21:12)
[2022-03-19] MEDS: HYDROcodone/APAP 7.5 MG/325 MG (LORTAB, LORCET PLUS) TABLET PO PRN ×2 (07:51→13:22)
[2022-03-19] MEDS ORDERED: CYANOCOBALAMIN INJ 1000 MCG/ML IM ONE (09:00)
--- NOTE | 2022-03-19 09:37 | Occupational Ther Daily Note ---
OT Current Status-Daily Note Subjective Pt alert, sitting in recliner. Pt seems more anxious today and not as focused on tasks. Pt does agrees to therapy. No c/o pain at this time. Mental Status/Objective Patient Orientation: Person, Place, Time, Situation ADL-Treatment Pt initially wanted to take sponge bath at sink. Pt then requested to use toilet. Pt talked about how much assistance Jamie hammond gave her with toileting and shower, NIETO reminded pt that pt/therapist had this conversation yesterday. Pt continued on topic and NIETO reminded pt again that she had said that Jamie assisted with footwear and occasionally dressing lower body after showering but she was able to complete own toileting and would use AE to don pants. CGA for toileting. Pt stated that she wanted a shower since she had a bowel movement. CGA for shower transfer using FWW, grabbars and shower bench. Pt completed all areas in sitting except assist with lower legs/feet and buttocks. After set up, pt able to complete upper body by self. Assistance for lower body/footwear per pt guidance of what PLOF is. Therapy Code Descriptions/Definitions Functional [place] Measure: 0=Not Assessed/NA 4=Minimal Assistance 1=Total Assistance 5=Supervision or Setup 2=Maximal Assistance 6=Modified [place] 3=Moderate Assistance 7=Complete IndependenceSCALE: Activities may be completed with or without assistive devices. 1-Xzrrccdxea-viyuvkb completes the activity by him/herself with no assistance from a helper. 5-Set-up or Clean-up Assistance-helper sets up or cleans up; patient completes activity. [place] assists only prior to or following the activity. 4-Supervision or Touching Assistance-helper provides verbal cues and/or touching/steadying and/or contact guard assistance as patient completes activity. Assistance may be provided throughout the activity or intermittently. 3-Partial/Moderate Assistance-helper does LESS THAN HALF the effort. [place] lifts, holds or supports trunk or limbs, but provides less than half the effort. 2-Substantial/Maximal Assistance-helper does MORE THAN HALF the effort. [place] lifts or holds trunk or limbs and provides more than half the effort. 3-Aghyallnc-ffudrn does ALL the effort. Patient does none of the effort to complete the activity. Or, the assistance of 2 or more helpers is required for the patient to complete the activity. If activity was not attempted, code reason: 7-Patient Refused. 9-Not Applicable-not attempted and the patient did not perform the activity before the current illness, exacerbation or injury. 10-Not Attempted due to Environmental Limitations-(lack of equipment, weather restraints, etc.). 88-Not Attempted due to Medical Conditions or Safety Concerns. Eating (QC): 6 Shower/Bathe Self (QC): 3 (min a) Upper Body Dressing (QC): 5 Lower Body Dressing (QC): 2 On/Off Footwear: 1 Toileting Hygiene (QC): 4 (CGA) Toilet Transfer (QC): 4 (CGA using elevated surface) Other Treatment Pt given light resistance therapy foam to increase co founder/pinch strength for daily functional tasks. Skilled instruction for correct position in exercises and stretching. Wrist and elbow stretching given to pt. Pt needs vc/pc to complete correctly. After therapy, pt sitting in recliner with call light/phone in reach. All needs met in room. Education OT Patient Education: Exercise program Teaching Recipient: Patient Teaching Methods: Demonstration, Discussion Response to Teaching: Verbalize Understanding, Return Demonstration, Reinforcement Needed OT Short Term Goals Short Term Goals Time Frame: Mar 29, 2022 Toileting hygiene: 3 Shower/bathe self: 3 Lower body dressin Putting on/taking off footwear: 3 OT Train Gateman Goals Group Home Goals Time Frame: Apr 12, 2022 Acute change in mental status: 0 Inattention: 0 Disorganized thinkin Altered level of consciousness: 0 Eating (QC): 6 Oral Hygiene (QC): 6 Toileting Hygiene (QC): 4 Shower/Bathe Self (QC): 4 Upper Body Dressing (QC): 5 Lower Body Dressing (QC): 4 On/Off Footwear (QC): 4 Additional Goals: 1-Demonstrate ADL Tasks, 2-Verbalize Understanding, 3- ImproveStrength/Omari 1=Demonstrate adherence to instructed precautions during ADL tasks. 2=Patient will verbalize/demonstrate understanding of assistive devices/modifications for ADL. 3=Patient will improve strength/tolerance for activity to enable patient to perform ADL's. OT Education/Plan Problem List/Assessment Assessment: Decreased Activ Tolerance, Decreased UE Strength, Impaired Funct Balance, Impaired Self-Care Skills, Restricted Funct UE ROM Discharge Recommendations Plan/Recommendations: Continue POC Treatment Plan/Plan of Care Patient would benefit from OT for education, treatment and training to promote independence in ADL's, mobility, safety and/or upper extremity function for ADL's. Plan of Care: ADL Retraining, Functional Mobility, Group Exercise/Act as Ind, UE Funct Exercise/Act Treatment Duration: Apr 12, 2022 Frequency: At least 5 of 7 days/Wk (IRF) Estimated Hrs Per Day: 1.5 hours per day Agreement: Yes Rehab Potential: Guarded Time Start Time: 08:00 Stop Time: 09:30 DATE: Mar 19, 2022 Total Time Billed (hr/min): 90 Billed Treatment Time 1 visit-ADL 5 (80 min) EX 1 (10 min) JANAE GRIJALVA Mar 19, 2022 09:37
--- NOTE | 2022-03-19 11:33 | Physical Therapy Daily Note ---
PT Daily Note-Current Subjective Pt sitting in recliner upon arrival. Pt agrees to PT. Pt reports more discomfort in L hip today, took pain med. before tx. Pain Location: Left Location Body Site: Hip Pain Description: Ache Comment: Reports but doesn't rate Section J - Health Conditions 1. Rarely or not at all 2. Occasionally 3. Frequently 4. Almost constantly 8. Unable to answer Pain Effect on Sleep: 2 Pain Interference with Therapy: 2 Pain Interference w/Day-to-Day: 2 Mental Status Patient Orientation: Person, Place, Situation Transfers SCALE: Activities may be completed with or without assistive devices. 2-Ymnjoyaqey-ztbsvii completes the activity by him/herself with no assistance from a helper. 5-Set-up or Clean-up Assistance-helper sets up or cleans up; patient completes activity. [place] assists only prior to or following the activity. 4-Supervision or Touching Assistance-helper provides verbal cues and/or touching/steadying and/or contact guard assistance as patient completes activity. Assistance may be provided throughout the activity or intermittently. 3-Partial/Moderate Assistance-helper does LESS THAN HALF the effort. [place] lifts, holds or supports trunk or limbs, but provides less than half the effort. 2-Substantial/Maximal Assistance-helper does MORE THAN HALF the effort. [place] lifts or holds trunk or limbs and provides more than half the effort. 0-Onarpavwu-coitpx does ALL the effort. Patient does none of the effort to complete the activity. Or, the assistance of 2 or more helpers is required for the patient to complete the activity. If activity was not attempted, code reason: 7-Patient Refused. 9-Not Applicable-not attempted and the patient did not perform the activity before the current illness, exacerbation or injury. 10-Not Attempted due to Environmental Limitations-(lack of equipment, weather restraints, etc.). 88-Not Attempted due to Medical Conditions or Safety Concerns. Sit to Stand (QC): 4 Toilet Transfer (QC): 4 OPEN END SPINNING OPERATOR encourages pt to not elevate lift chair more than she needs to for improved indep. of task Weight Bearing Full Weight Bearing Left Lower Extremity: Left Weight Bearing/Tolerated Gait Training Does the Patient Walk?: Yes Distance: 100' x2 Walk 10 feet (QC): 4 Walk 50 ft with 2 Turns(QC): 4 Gait Persons Needed: 1 Gait Assistive Device: FWW Wheelchair Training Does the Pt Use a Wheelchair?: No Exercises Seated Therapy Exercises: Ankle pumps, Long arc quads, Hip flexion, Hip abd/add, Glut set Seated Reps: 15 Treatments TF to standing by elevating lift chair then amb. to BR. Pt takes RB after washing hands. Pt amb. to hallway then takes RB. Pt completes Seated Ex then amb. back to room to rest in recliner. All needs met, call light in hand. Assessment Current Status: Fair Progress Pt demonstrates more confusion and resistance to PT today. Pt also reports increased L hip pain that has not been mentioned since early in ARU stay. Nurse gives pain med. PT Short Term Goals Short Term Goals Time Frame: Mar 20, 2022 Roll Left & Right: 3 (mod A) Sit to lyin (modA) Lying to sitting on side of be: 3 (modA) Sit to stand: 3 (modA) Chair/rfx-cv-hkdzz transfer: 3 (modA) Walk 10 feet: 3 (modA) PT Space Technologist Goals Usp Goals PT Space Technologist Goals Time Frame: Mar 27, 2022 Roll Left & Right (QC): 3 (Rusty) Sit to Lying (QC): 3 (Rusty) Lying-Sitting on Side/Bed(QC): 3 (Rusty) Sit to Stand (QC): 3 (Rusty) Chair/Yuw-fc-Zxkct Xfer(QC): 3 (Rusty) Toilet Transfer (QC): 3 (Rusty) Car Transfer (QC): 3 (Rusty) Does the Patient Walk: No and Walking Goal IS indicated Walk 10 feet (QC): 3 (Rusty) Walk 50ft with 2 Turns (QC): 88 Walk 150 ft (QC): 88 Walking 10ft on Uneven Surface: 3 (Rusty) 1 Step (curb) (QC): 88 4 Steps (QC): 88 12 Steps (QC): 88 Picking up an Object (QC): 4 (CGA using a chairman & chief executive officer) Wheel 50 feet with 2 turns (QC: 4 (SBA) Wheel 150 feet: 4 (SBA) PT Plan Problem List Problem List: Activity Tolerance, Functional Strength, Gait, Transfer Treatment/Plan Treatment Plan: Continue Plan of Care Treatment Plan: Bed Mobility, Education, Functional Activity Omari, Functional Strength, Group Therapy, Gait, Safety, Therapeutic Exercise, Transfers Treatment Duration: Mar 27, 2022 Frequency: At least 5 of 7 days/Wk (IRF) Estimated Hrs Per Day: 1.5 hours per day Patient and/or Family Agrees t: Yes Safety Risks/Education Patient Education: Gait Training, Transfer Techniques, Correct Positioning Teaching Recipient: Patient Teaching Methods: Discussion Response to Teaching: Verbalize Understanding Time Time In: 1015 Time Out: 1115 DATE: Mar 19, 2022 Total Billed Treatment Time: 60 Total Billed Treatment 1, FA (20m), EX (15m) & GT x2 (25m) RANJITH CARLISLE OPEN END SPINNING OPERATOR Mar 19, 2022 11:33
[2022-03-19] MEDS: IRON SUCROSE 200 MG/10 ML (VENOFER) VIAL IV SCH (12:24)
[2022-03-19 13:00] VITALS: BP 153/67
--- NOTE | 2022-03-19 14:30 | Physical Therapy Daily Note ---
PT Daily Note-Current Subjective Pt sitting in recliner upon arrival. Pt agrees to PT asking to use BR to start tx. Pain Location: Left Location Body Site: Hip Pain Description: Ache Comment: Reports but doesn't rate Section J - Health Conditions 1. Rarely or not at all 2. Occasionally 3. Frequently 4. Almost constantly 8. Unable to answer Pain Effect on Sleep: 2 Pain Interference with Therapy: 2 Pain Interference w/Day-to-Day: 2 Mental Status Patient Orientation: Person, Confused, Place Attachments: Oxygen (1L) Transfers SCALE: Activities may be completed with or without assistive devices. 9-Xgxcbjcxrc-hztyvxb completes the activity by him/herself with no assistance from a helper. 5-Set-up or Clean-up Assistance-helper sets up or cleans up; patient completes activity. [place] assists only prior to or following the activity. 4-Supervision or Touching Assistance-helper provides verbal cues and/or touching/steadying and/or contact guard assistance as patient completes activity. Assistance may be provided throughout the activity or intermittently. 3-Partial/Moderate Assistance-helper does LESS THAN HALF the effort. [place] lifts, holds or supports trunk or limbs, but provides less than half the effort. 2-Substantial/Maximal Assistance-helper does MORE THAN HALF the effort. [place] lifts or holds trunk or limbs and provides more than half the effort. 6-Ieimyxraj-tjqeid does ALL the effort. Patient does none of the effort to complete the activity. Or, the assistance of 2 or more helpers is required for the patient to complete the activity. If activity was not attempted, code reason: 7-Patient Refused. 9-Not Applicable-not attempted and the patient did not perform the activity before the current illness, exacerbation or injury. 10-Not Attempted due to Environmental Limitations-(lack of equipment, weather restraints, etc.). 88-Not Attempted due to Medical Conditions or Safety Concerns. Sit to Stand (QC): 4 Toilet Transfer (QC): 4 Pt continues to elevate lift chair for TF, PEDIATRIC DENTAL ASSISTANT encourages trying to stand w/o lifting so much. Weight Bearing Full Weight Bearing Left Lower Extremity: Left Weight Bearing/Tolerated Exercises Supine Ex: Ankle pumps, Quad Set, Glut sets, Heel Slides, Straight leg raise, Hip abd/add Supine Reps: 15 Treatments TF to standing after elevating lift chair. Pt uses BR then returns to recliner to rest. Pt completes Supine EX at recliner then rests at end of tx. All needs met, call light in hand. Assessment Current Status: Fair Progress Pt more hesitant due to IV for Iron given late morning. Pt reports discomfort in L hip as well. PT Short Term Goals Short Term Goals Time Frame: Mar 20, 2022 Roll Left & Right: 3 (mod A) Sit to lyin (modA) Lying to sitting on side of be: 3 (modA) Sit to stand: 3 (modA) Chair/uxt-br-lmlyl transfer: 3 (modA) Walk 10 feet: 3 (modA) PT Label Coder Goals Label Coder Goals PT Label Coder Goals Time Frame: Mar 27, 2022 Roll Left & Right (QC): 3 (Rusty) Sit to Lying (QC): 3 (Rusty) Lying-Sitting on Side/Bed(QC): 3 (Rusty) Sit to Stand (QC): 3 (Rusty) Chair/Goe-pk-Xflzw Xfer(QC): 3 (Rusty) Toilet Transfer (QC): 3 (Rusty) Car Transfer (QC): 3 (Rusty) Does the Patient Walk: No and Walking Goal IS indicated Walk 10 feet (QC): 3 (Rusty) Walk 50ft with 2 Turns (QC): 88 Walk 150 ft (QC): 88 Walking 10ft on Uneven Surface: 3 (Rusty) 1 Step (curb) (QC): 88 4 Steps (QC): 88 12 Steps (QC): 88 Picking up an Object (QC): 4 (CGA using a cloth washer) Wheel 50 feet with 2 turns (QC: 4 (SBA) Wheel 150 feet: 4 (SBA) PT Plan Problem List Problem List: Activity Tolerance, Functional Strength, Transfer Treatment/Plan Treatment Plan: Continue Plan of Care Treatment Plan: Bed Mobility, Education, Functional Activity Omari, Functional Strength, Group Therapy, Gait, Safety, Therapeutic Exercise, Transfers Treatment Duration: Mar 27, 2022 Frequency: At least 5 of 7 days/Wk (IRF) Estimated Hrs Per Day: 1.5 hours per day Patient and/or Family Agrees t: Yes Safety Risks/Education Patient Education: Transfer Techniques Teaching Recipient: Patient Teaching Methods: Discussion Response to Teaching: Verbalize Understanding Time Time In: 1300 Time Out: 1330 DATE: Mar 19, 2022 Total Billed Treatment Time: 30 Total Billed Treatment 1, FA (15m) & EX (15m) RANJITH CARLISLE PTA Mar 19, 2022 14:30
[2022-03-19] MEDS: FERROUS SULF 325 MG (IRON) TAB PO SCH (16:06)
[2022-03-19 19:59] VITALS: BP 132/69
[2022-03-19] MEDS: amLODIPine 5 MG (NORVASC) TAB PO SCH (21:12)
[2022-03-20] MEDS: CYANOCOBALAMIN 1,000 MCG (VITAMIN B-12) TABLET PO SCH (06:41)
[2022-03-20] MEDS: MULTIVIT W/MINERALS TAB (THERAGRAN M) PO SCH (06:41)
[2022-03-20] MEDS: KCL 20 MEQ TAB (K-DUR) PO SCH (06:41)
[2022-03-20] MEDS: LEVOTHYROXINE 88 MCG (LEVOTHORID) TAB PO SCH (06:41)
[2022-03-20 07:09] VITALS: BP 173/82
[2022-03-20] MEDS: LOSARTAN 50 MG (COZAAR) TAB PO SCH (08:27)
[2022-03-20] MEDS: ASPIRIN 81 MG CHEW (CHILDREN'S ASA) PO SCH ×2 (08:27→20:07)
[2022-03-20] MEDS: VITAMIN D3 125 MCG (5,000 UNITS) CAPSULE PO SCH (08:27)
[2022-03-20] MEDS: DOCUSATE SODIUM 100 MG (COLACE) CAP PO SCH ×2 (08:27→20:07)
[2022-03-20] MEDS: LACTOBACILLUS ACIDOPHILUS (PROBIOTIC) CAPSULE PO SCH ×3 (08:27→18:29)
[2022-03-20] MEDS: PANTOPRAZOLE 40 MG (PROTONIX) TAB PO SCH (08:27)
[2022-03-20] MEDS: SENNA W/DOCUSATE (SENOKOT S) TABLET PO SCH ×2 (08:27→20:08)
[2022-03-20] MEDS: hydrALAZINE (APRESOLINE) 25 MG TAB PO SCH ×3 (08:27→20:07)
[2022-03-20] MEDS: polyethylene glycoL POWDER 17 GM (MIRALAX) PACK PO SCH ×3 (08:28→20:07)
[2022-03-20] MEDS: ARTIFICAL TEARS 0.4 ML UNIT DOSE (REFRESH PLUS) OU SCH ×2 (08:28→20:07)
[2022-03-20] MEDS: HYDROcodone/APAP 7.5 MG/325 MG (LORTAB, LORCET PLUS) TABLET PO PRN ×2 (08:34→20:26)
--- NOTE | 2022-03-20 09:58 | PM&R Progress Note ---
Subjective HPI/CC On Admission Date Seen by Provider: Mar 20, 2022 Time Seen by Provider: 10:30 Subjective/Events-last exam 03/20/2022: Doing well Pain controlled No falls Tolerating iron infusions 03/19/2022: Patient doing well Blood pressure good Bowels moving Pain controlled 03/18/2022: Improved status No pain reported unless she moves BP is usually elevated she reports as it is here now Labs stable 03/17/2022: Patient doing well No pain is reported when she is sleeping Blood pressure is elevated Monitoring closely 03/16/2022: Patient doing well Blood pressure really elevated today Added blood pressure medicine 03/15/2022: Patient doing well Took a shower Dulcolax suppository will be ordered for constipation continues Pain is controlled 03/14/2022: Patient settling in well Pain is pretty well controlled with pain med No major concerns Bowel regimen No falls Review of Systems General: Fatigue, Malaise Neurological: Weakness Objective Exam Vital Signs Vital Signs Date Time Temp Pulse Resp B/P (MAP) Pulse Ox O2 Delivery O2 Flow Rate FiO2 03/20/22 20:31 Room Air 03/20/22 20:15 36.8 94 20 165/75 (105) 95 03/19/22 21:15 1.00 Capillary Refill : General Appearance: No Apparent Distress, WD/WN, Chronically ill, Obese HEENT: PERRL/EOMI, Normal ENT Inspection, Pharynx Normal Neck: Full Range of Motion, Normal Inspection, Non Tender, Supple, Carotid Bruit Respiratory: Chest Non Tender, Lungs Clear, Normal Breath Sounds, No Accessory Muscle Use, No Respiratory Distress Cardiovascular: Regular Rate, Rhythm, No Edema, No Gallop, No JVD, No Murmur, Normal Peripheral Pulses Gastrointestinal: Normal Bowel Sounds, No Organomegaly, No Pulsatile Mass, Non Tender, Soft Back: Normal Inspection, No CVA Tenderness, No Vertebral Tenderness Extremity: Normal Capillary Refill, Normal Inspection, Normal Range of Motion (Except left), Non Tender, No Calf Tenderness, No Pedal Edema Neurologic/Psychiatric: Alert, Oriented x3, No Motor/Sensory Deficits, Normal Mood/Affect, marketing technology coordinator II-XII Norm as Tested, Abnormal Gait, Motor Weakness (Left leg) Skin: Normal Color, Warm/Dry Lymphatic: No Adenopathy Results/Procedures Lab Patient resulted labs reviewed. FIM Transfers Therapy Code Descriptions/Definitions Functional [place] Measure: 0=Not Assessed/NA 4=Minimal Assistance 1=Total Assistance 5=Supervision or Setup 2=Maximal Assistance 6=Modified [place] 3=Moderate Assistance 7=Complete IndependenceSCALE: Activities may be completed with or without assistive devices. 0-Deqqwhfzxu-jsblujl completes the activity by him/herself with no assistance from a helper. 5-Set-up or Clean-up Assistance-helper sets up or cleans up; patient completes activity. [place] assists only prior to or following the activity. 4-Supervision or Touching Assistance-helper provides verbal cues and/or touching/steadying and/or contact guard assistance as patient completes activity. Assistance may be provided throughout the activity or intermittently. 3-Partial/Moderate Assistance-helper does LESS THAN HALF the effort. [place] lifts, holds or supports trunk or limbs, but provides less than half the effort. 2-Substantial/Maximal Assistance-helper does MORE THAN HALF the effort. [place] lifts or holds trunk or limbs and provides more than half the effort. 8-Zyqlzlnnj-thadzb does ALL the effort. Patient does none of the effort to c omplete the activity. Or, the assistance of 2 or more helpers is required for the patient to complete the activity. If activity was not attempted, code reason: 7-Patient Refused. 9-Not Applicable-not attempted and the patient did not perform the activity before the current illness, exacerbation or injury. 10-Not Attempted due to Environmental Limitations-(lack of equipment, weather restraints, etc.). 88-Not Attempted due to Medical Conditions or Safety Concerns. Roll Left to Right (QC): 2 Sit to Lying (QC): 1 Sit to Stand (QC): 4 Chair/Clo-xo-Hsulr Xfer(QC): 4 Car Transfer (QC): 2 Gait Training Does the Patient Walk?: Yes Distance: 100' x2 Walk 10 feet (QC): 4 Walk 50 ft with 2 Turns(QC): 4 Walk 150 ft (QC): 88 Walking 10ft/uneven surface-QC: 88 Gait Persons Needed: 1 Gait Assistive Device: FWW Wheelchair Training Does the Pt Use a Wheelchair?: No Distance: 150' Wheel 50 ft with 2 turns (QC): 3 Wheel 150 ft (QC): 3 Type of Wheelchair: Manual Stair Training 1 Step (curb) (QC): 88 4 Steps (QC): 88 12 Steps (QC): 88 Balance Picking up an Object (QC): 88 ADL-Treatment Eating (QC): 6 Oral Hygiene (QC): 5 Shower/Bathe Self (QC): 3 (min a) Upper Body Dressing (QC): 5 Lower Body Dressing (QC): 2 On/Off Footwear (QC): 1 Toileting Hygiene (QC): 4 (CGA) Toilet Transfer (QC): 4 (CGA using elevated surface) Assessment/Plan Assessment and Plan Assess & Plan/Chief Complaint Assessment: Left femur fracture status post repair at [place] Severe chronic lower extremity edema Hypothyroidisim Anemia Hypoalbuminemia Advanced age Postop constipation Acute blood loss anemia iron def and b12 def supplementing both Postop constipation-resolved Plan: Pain control Bowel regimen PT and OT Supportive care 03/14/2022: Pain control Therapy protocol 03/15/2022: Check iron and B12 Monitor pain Bowel regimen 03/16/2022: Supportive care Continue current treatment Monitor blood pressure after addition of blood pressure meds 03/17/2022: Blood pressure management Pain control 03/18/2022: Iron infusion tomorrow morning along with B12 03/19/2022: Supportive care Iron infusion and B12 03/20/2022: Supportive care (1) Intertrochanteric fracture of femur Status: Acute MOLLY MUIR DO Mar 20, 2022 09:58
--- NOTE | 2022-03-20 10:19 | Occupational Ther Daily Note ---
OT Current Status-Daily Note Subjective Pt alert, sitting in recliner. Pt agrees to therapy. C/o pain though did not rate, nrsg brought pain meds. Mental Status/Objective Patient Orientation: Person, Place, Time, Situation Attachments: IV ADL-Treatment Pt declined shower or changing clothing today. Pt ambulates to toilet using FWW and CGA for toilet transfer due to retropulsion when going from sit<-->stand. SBA for toileting. Pt standing at sink to complete oral care and grooming with SBA for safety. Dependent with donning/doffing footwear. Pt has demonstrated ability to doff footwear with AE though reluctant to complete. Therapy Code Descriptions/Definitions Functional [place] Measure: 0=Not Assessed/NA 4=Minimal Assistance 1=Total Assistance 5=Supervision or Setup 2=Maximal Assistance 6=Modified [place] 3=Moderate Assistance 7=Complete IndependenceSCALE: Activities may be completed with or without assistive devices. 5-Fdgkpmzimn-gngbgdg completes the activity by him/herself with no assistance from a helper. 5-Set-up or Clean-up Assistance-helper sets up or cleans up; patient completes activity. [place] assists only prior to or following the activity. 4-Supervision or Touching Assistance-helper provides verbal cues and/or touching/steadying and/or contact guard assistance as patient completes activity. Assistance may be provided throughout the activity or intermittently. 3-Partial/Moderate Assistance-helper does LESS THAN HALF the effort. [place] lifts, holds or supports trunk or limbs, but provides less than half the effort. 2-Substantial/Maximal Assistance-helper does MORE THAN HALF the effort. [place] lifts or holds trunk or limbs and provides more than half the effort. 7-Snravqrcp-gsgilw does ALL the effort. Patient does none of the effort to complete the activity. Or, the assistance of 2 or more helpers is required for the patient to complete the activity. If activity was not attempted, code reason: 7-Patient Refused. 9-Not Applicable-not attempted and the patient did not perform the activity before the current illness, exacerbation or injury. 10-Not Attempted due to Environmental Limitations-(lack of equipment, weather restraints, etc.). 88-Not Attempted due to Medical Conditions or Safety Concerns. Eating (QC): 6 Oral Hygiene (QC): 4 On/Off Footwear: 1 (PLOF) Toileting Hygiene (QC): 4 Toilet Transfer (QC): 4 Other Treatment Pt ambulates from room to therapy gym and back using FWW with SBA, no LOB noted. Pt then completes arm bike for 10 min with 15 brar resistance, 1 recovery break, to increase B shldr ROM, strength and activity tolerance for daily functional tasks. Pt stated that her hands were tingling after arm bike, stretch for B UE completed. After session, pt sitting in recliner with call light/phone in reach. All needs met in room. OT Short Term Goals Short Term Goals Time Frame: Mar 29, 2022 Toileting hygiene: 3 Shower/bathe self: 3 Lower body dressin Putting on/taking off footwear: 3 OT Director Physical Goals Director Physical Goals Time Frame: Apr 12, 2022 Acute change in mental status: 0 Inattention: 0 Disorganized thinkin Altered level of consciousness: 0 Eating (QC): 6 Oral Hygiene (QC): 6 Toileting Hygiene (QC): 4 Shower/Bathe Self (QC): 4 Upper Body Dressing (QC): 5 Lower Body Dressing (QC): 4 On/Off Footwear (QC): 4 Additional Goals: 1-Demonstrate ADL Tasks, 2-Verbalize Understanding, 3- ImproveStrength/Omari 1=Demonstrate adherence to instructed precautions during ADL tasks. 2=Patient will verbalize/demonstrate understanding of assistive devices/ modifications for ADL. 3=Patient will improve strength/tolerance for activity to enable patient to perform ADL's. OT Education/Plan Problem List/Assessment Assessment: Decreased Activ Tolerance, Decreased UE Strength, Impaired Self- Care Skills, Restricted Funct UE ROM Discharge Recommendations Plan/Recommendations: Continue POC Treatment Plan/Plan of Care Patient would benefit from OT for education, treatment and training to promote independence in ADL's, mobility, safety and/or upper extremity function for ADL's. Plan of Care: ADL Retraining, Functional Mobility, Group Exercise/Act as Ind, UE Funct Exercise/Act Treatment Duration: Apr 12, 2022 Frequency: At least 5 of 7 days/Wk (IRF) Estimated Hrs Per Day: 1.5 hours per day Agreement: Yes Rehab Potential: Guarded Time Start Time: 08:50 Stop Time: 09:20 DATE: Mar 20, 2022 Total Time Billed (hr/min): 90 Billed Treatment Time 1 visit-ADL 4 (55 min) EX 2 (35 min) JANAE GRIJALVA Mar 20, 2022 10:19
--- NOTE | 2022-03-20 11:40 | Physical Therapy Daily Note ---
PT Daily Note-Current Subjective Pt sitting in recliner upon arrival. Pt agrees to PT. Pain Numeric Pain Scale: 5-Moderate Pain Location: Left Location Body Site: Hip Pain Description: Ache Section J - Health Conditions 1. Rarely or not at all 2. Occasionally 3. Frequently 4. Almost constantly 8. Unable to answer Pain Effect on Sleep: 2 Pain Interference with Therapy: 2 Pain Interference w/Day-to-Day: 2 Mental Status Patient Orientation: Person, Place, Time, Situation Transfers SCALE: Activities may be completed with or without assistive devices. 7-Qiazwwlmdo-aqhthqn completes the activity by him/herself with no assistance from a helper. 5-Set-up or Clean-up Assistance-helper sets up or cleans up; patient completes activity. [place] assists only prior to or following the activity. 4-Supervision or Touching Assistance-helper provides verbal cues and/or touching/steadying and/or contact guard assistance as patient completes activity. Assistance may be provided throughout the activity or intermittently. 3-Partial/Moderate Assistance-helper does LESS THAN HALF the effort. [place] lifts, holds or supports trunk or limbs, but provides less than half the effort. 2-Substantial/Maximal Assistance-helper does MORE THAN HALF the effort. [place] lifts or holds trunk or limbs and provides more than half the effort. 5-Vodvwhimb-cltcrv does ALL the effort. Patient does none of the effort to complete the activity. Or, the assistance of 2 or more helpers is required for the patient to complete the activity. If activity was not attempted, code reason: 7-Patient Refused. 9-Not Applicable-not attempted and the patient did not perform the activity before the current illness, exacerbation or injury. 10-Not Attempted due to Environmental Limitations-(lack of equipment, weather restraints, etc.). 88-Not Attempted due to Medical Conditions or Safety Concerns. Sit to Stand (QC): 4 Toilet Transfer (QC): 4 Weight Bearing Full Weight Bearing Left Lower Extremity: Left Weight Bearing/Tolerated Gait Training Does the Patient Walk?: Yes Distance: 150' x2 Walk 10 feet (QC): 5 Walk 50 ft with 2 Turns(QC): 5 Walk 150 ft (QC): 5 Gait Assistive Device: FWW Pt fatigues by end of 150' and needs RB. Wheelchair Training Does the Pt Use a Wheelchair?: No Exercises Seated Therapy Exercises: Ankle pumps, Long arc quads, Hip flexion, Hip ab d/add, Glut set Seated Reps: 15 Treatments Pt TF to standing from recliner w/lift chair elevated but w/encouragement from GRAPHICS EDIT TECHNICIAN chair not lifted as high. Pt amb. to BR then completes pericare. Pt amb. in hallway, taking RB in Therapy Gym. Pt completes Seated EX then amb. in hallway & returns to room to rest in lift chair. All needs met, call light in hand. Assessment Current Status: Good Progress Pt is walking farther before needing RB. Pt sometimes needs encouragement to push self or that pt can complete task when pt doubts. PT Short Term Goals Short Term Goals Time Frame: Mar 20, 2022 Roll Left & Right: 3 (mod A) Sit to lyin (modA) Lying to sitting on side of be: 3 (modA) Sit to stand: 3 (modA) Chair/afb-sz-dfdxz transfer: 3 (modA) Walk 10 feet: 3 (modA) PT Cook Pressure Goals Alf Goals PT Cook Pressure Goals Time Frame: Mar 27, 2022 Roll Left & Right (QC): 3 (Rusty) Sit to Lying (QC): 3 (Rusty) Lying-Sitting on Side/Bed(QC): 3 (Rusty) Sit to Stand (QC): 3 (Rusty) Chair/Ktf-tv-Cdqhz Xfer(QC): 3 (Rusty) Toilet Transfer (QC): 3 (Rusty) Car Transfer (QC): 3 (Rusty) Does the Patient Walk: No and Walking Goal IS indicated Walk 10 feet (QC): 3 (Rusty) Walk 50ft with 2 Turns (QC): 88 Walk 150 ft (QC): 88 Walking 10ft on Uneven Surface: 3 (Rusty) 1 Step (curb) (QC): 88 4 Steps (QC): 88 12 Steps (QC): 88 Picking up an Object (QC): 4 (CGA using a prop setter) Wheel 50 feet with 2 turns (QC: 4 (SBA) Wheel 150 feet: 4 (SBA) PT Plan Problem List Problem List: Activity Tolerance, Functional Strength Treatment/Plan Treatment Plan: Continue Plan of Care Treatment Plan: Bed Mobility, Education, Functional Activity Omari, Functional Strength, Group Therapy, Gait, Safety, Therapeutic Exercise, Transfers Treatment Duration: Mar 27, 2022 Frequency: At least 5 of 7 days/Wk (IRF) Estimated Hrs Per Day: 1.5 hours per day Patient and/or Family Agrees t: Yes Safety Risks/Education Patient Education: Gait Training, Transfer Techniques Teaching Recipient: Patient Teaching Methods: Discussion Response to Teaching: Verbalize Understanding Time Time In: 1015 Time Out: 1115 DATE: Mar 20, 2022 Total Billed Treatment Time: 60 Total Billed Treatment 1, GT x2 (30m), FA (15m) & EX (15m) RANJITH CARLISLE GRAPHICS EDIT TECHNICIAN Mar 20, 2022 11:40
--- NOTE | 2022-03-20 14:39 | Physical Therapy Daily Note ---
PT Daily Note-Current Subjective Pt looks fatigued as UTILITY SERVICE WORKER enters room. Pt is sitting in lift chair and agrees to PT for amb. Pain Numeric Pain Scale: 3 Location: Left Location Body Site: Hip Pain Description: Ache Comment: Pt reports L knee & hip pain but improved from morning. Section J - Health Conditions 1. Rarely or not at all 2. Occasionally 3. Frequently 4. Almost constantly 8. Unable to answer Pain Effect on Sleep: 2 Pain Interference with Therapy: 2 Pain Interference w/Day-to-Day: 2 Mental Status Patient Orientation: Person, Place, Situation Transfers SCALE: Activities may be completed with or without assistive devices. 4-Beqexmptlu-jkflnod completes the activity by him/herself with no assistance from a helper. 5-Set-up or Clean-up Assistance-helper sets up or cleans up; patient completes activity. [place] assists only prior to or following the activity. 4-Supervision or Touching Assistance-helper provides verbal cues and/or touching/steadying and/or contact guard assistance as patient completes activity. Assistance may be provided throughout the activity or intermittently. 3-Partial/Moderate Assistance-helper does LESS THAN HALF the effort. [place] lifts, holds or supports trunk or limbs, but provides less than half the effort. 2-Substantial/Maximal Assistance-helper does MORE THAN HALF the effort. [place] ifts or holds trunk or limbs and provides more than half the effort. 6-Coyjnwimt-ibswge does ALL the effort. Patient does none of the effort to complete the activity. Or, the assistance of 2 or more helpers is required for the patient to complete the activity. If activity was not attempted, code reason: 7-Patient Refused. 9-Not Applicable-not attempted and the patient did not perform the activity before the current illness, exacerbation or injury. 10-Not Attempted due to Environmental Limitations-(lack of equipment, weather restraints, etc.). 88-Not Attempted due to Medical Conditions or Safety Concerns. Sit to Stand (QC): 4 Weight Bearing Full Weight Bearing Left Lower Extremity: Left Weight Bearing/Tolerated Gait Training Does the Patient Walk?: Yes Distance: 200' Walk 10 feet (QC): 5 Walk 50 ft with 2 Turns(QC): 5 Walk 150 ft (QC): 5 Gait Assistive Device: FWW Wheelchair Training Does the Pt Use a Wheelchair?: No Treatments TF from lift chair but continues to try to lift chair more than needed for TF just because she has lift chair at [facility]. UTILITY SERVICE WORKER encourages trying to stand as indep. as possible for improved strength. Pt amb. in hallway, taking one RB before returning to room to rest in chair. All needs met, call light in hand. Assessment Current Status: Fair Progress Pt continues to demonstrate lack of motivation to push self for improved TF. PT Short Term Goals Short Term Goals Time Frame: Mar 20, 2022 Roll Left & Right: 3 (mod A) Sit to lyin (modA) Lying to sitting on side of be: 3 (modA) Sit to stand: 3 (modA) Chair/tna-cv-dgchs transfer: 3 (modA) Walk 10 feet: 3 (modA) PT Residential Goals Print Inspector Goals PT Print Inspector Goals Time Frame: Mar 27, 2022 Roll Left & Right (QC): 3 (Rusty) Sit to Lying (QC): 3 (Rusty) Lying-Sitting on Side/Bed(QC): 3 (Rusty) Sit to Stand (QC): 3 (Rusty) Chair/Uuv-uu-Kzsfs Xfer(QC): 3 (Rusty) Toilet Transfer (QC): 3 (Rusty) Car Transfer (QC): 3 (Rusty) Does the Patient Walk: No and Walking Goal IS indicated Walk 10 feet (QC): 3 (Rusty) Walk 50ft with 2 Turns (QC): 88 Walk 150 ft (QC): 88 Walking 10ft on Uneven Surface: 3 (Rusty) 1 Step (curb) (QC): 88 4 Steps (QC): 88 12 Steps (QC): 88 Picking up an Object (QC): 4 (CGA using a second hand) Wheel 50 feet with 2 turns (QC: 4 (SBA) Wheel 150 feet: 4 (SBA) PT Plan Problem List Problem List: Activity Tolerance Treatment/Plan Treatment Plan: Continue Plan of Care Treatment Plan: Bed Mobility, Education, Functional Activity Omari, Functional Strength, Group Therapy, Gait, Safety, Therapeutic Exercise, Transfers Treatment Duration: Mar 27, 2022 Frequency: At least 5 of 7 days/Wk (IRF) Estimated Hrs Per Day: 1.5 hours per day Patient and/or Family Agrees t: Yes Safety Risks/Education Patient Education: Transfer Techniques Teaching Recipient: Patient Teaching Methods: Discussion Response to Teaching: Verbalize Understanding Time Time In: 1310 Time Out: 1340 DATE: Mar 20, 2022 Total Billed Treatment Time: 30 Total Billed Treatment 1, GT x2 (30m) RANJITH CARLISLE UTILITY SERVICE WORKER Mar 20, 2022 14:39
[2022-03-20] MEDS: amLODIPine 5 MG (NORVASC) TAB PO SCH (20:07)
[2022-03-20 20:15] VITALS: BP 165/75
[2022-03-20] MEDS: ONDANSETRON 4 MG (ZOFRAN) ORAL DISSOLVE TAB PO PRN (22:04)
[2022-03-21] MEDS: ONDANSETRON 4 MG (ZOFRAN) ORAL DISSOLVE TAB PO PRN ×3 (04:04→20:39)
--- NOTE | 2022-03-21 05:04 | PM&R Progress Note ---
Subjective HPI/CC On Admission Date Seen by Provider: Mar 21, 2022 Time Seen by Provider: 12:00 Subjective/Events-last exam 03/21/2022: Abdominal pain reported KUB shows constipation Labs reviewed Dr Perkins consulted 03/20/2022: Doing well Pain controlled No falls Tolerating iron infusions 03/19/2022: Patient doing well Blood pressure good Bowels moving Pain controlled 03/18/2022: Improved status No pain reported unless she moves BP is usually elevated she reports as it is here now Labs stable 03/17/2022: Patient doing well No pain is reported when she is sleeping Blood pressure is elevated Monitoring closely 03/16/2022: Patient doing well Blood pressure really elevated today Added blood pressure medicine 03/15/2022: Patient doing well Took a shower Dulcolax suppository will be ordered for constipation continues Pain is controlled 03/14/2022: Patient settling in well Pain is pretty well controlled with pain med No major concerns Bowel regimen No falls Review of Systems General: Fatigue, Malaise Musculoskeletal: leg pain Objective Exam Vital Signs Vital Signs Date Time Temp Pulse Resp B/P (MAP) Pulse Ox O2 Delivery O2 Flow Rate FiO2 03/21/22 20:30 95 Room Air 03/21/22 20:11 37.3 87 20 145/70 (95) 03/19/22 21:15 1.00 Capillary Refill : General Appearance: No Apparent Distress, WD/WN, Chronically ill, Obese HEENT: PERRL/EOMI, Normal ENT Inspection, Pharynx Normal Neck: Full Range of Motion, Normal Inspection, Non Tender, Supple, Carotid Bruit Respiratory: Chest Non Tender, Lungs Clear, Normal Breath Sounds, No Accessory Muscle Use, No Respiratory Distress Cardiovascular: Regular Rate, Rhythm, No Edema, No Gallop, No JVD, No Murmur, Normal Peripheral Pulses Gastrointestinal: Normal Bowel Sounds, No Organomegaly, No Pulsatile Mass, Non Tender, Soft Back: Normal Inspection, No CVA Tenderness, No Vertebral Tenderness Extremity: Normal Capillary Refill, Normal Inspection, Normal Range of Motion (Except left), Non Tender, No Calf Tenderness, No Pedal Edema Neurologic/Psychiatric: Alert, Oriented x3, No Motor/Sensory Deficits, Normal Mood/Affect, room inspector II-XII Norm as Tested, Abnormal Gait, Motor Weakness (Left leg) Skin: Normal Color, Warm/Dry Lymphatic: No Adenopathy Results/Procedures Lab Laboratory Tests 03/21/22 11:36 Patient resulted labs reviewed. FIM Transfers Therapy Code Descriptions/Definitions Functional [place] Measure: 0=Not Assessed/NA 4=Minimal Assistance 1=Total Assistance 5=Supervision or Setup 2=Maximal Assistance 6=Modified [place] 3=Moderate Assistance 7=Complete IndependenceSCALE: Activities may be completed with or without assistive devices. 6-Lkeuilylun-vsmkqwj completes the activity by him/herself with no assistance from a helper. 5-Set-up or Clean-up Assistance-helper sets up or cleans up; patient completes activity. [place] assists only prior to or following the activity. 4-Supervision or Touching Assistance-helper provides verbal cues and/or touching/steadying and/or contact guard assistance as patient completes activity. Assistance may be provided throughout the activity or intermittently. 3-Partial/Moderate Assistance-helper does LESS THAN HALF the effort. [place] lifts, holds or supports trunk or limbs, but provides less than half the effort. 2-Substantial/Maximal Assistance-helper does MORE THAN HALF the effort. [place] lifts or holds trunk or limbs and provides more than half the effort. 5-Eoylcoaic-jhrtvi does ALL the effort. Patient does none of the effort to complete the activity. Or, the assistance of 2 or more helpers is required for the patient to complete the activity. If activity was not attempted, code reason: 7-Patient Refused. 9-Not Applicable-not attempted and the patient did not perform the activity before the current illness, exacerbation or injury. 10-Not Attempted due to Environmental Limitations-(lack of equipment, weather restraints, etc.). 88-Not Attempted due to Medical Conditions or Safety Concerns. Roll Left to Right (QC): 2 Sit to Lying (QC): 1 Sit to Stand (QC): 4 Chair/Ovp-mr-Ainer Xfer(QC): 4 Car Transfer (QC): 2 Gait Training Does the Patient Walk?: Yes Distance: 200' Walk 10 feet (QC): 5 Walk 50 ft with 2 Turns(QC): 5 Walk 150 ft (QC): 5 Walking 10ft/uneven surface-QC: 88 Gait Persons Needed: 1 Gait Assistive Device: FWW Wheelchair Training Does the Pt Use a Wheelchair?: No Distance: 150' Wheel 50 ft with 2 turns (QC): 3 Wheel 150 ft (QC): 3 Type of Wheelchair: Manual Stair Training 1 Step (curb) (QC): 88 4 Steps (QC): 88 12 Steps (QC): 88 Balance Picking up an Object (QC): 88 ADL-Treatment Eating (QC): 6 Oral Hygiene (QC): 4 Shower/Bathe Self (QC): 3 (min a) Upper Body Dressing (QC): 5 Lower Body Dressing (QC): 2 On/Off Footwear (QC): 1 (PLOF) Toileting Hygiene (QC): 4 Toilet Transfer (QC): 4 Assessment/Plan Assessment and Plan Assess & Plan/Chief Complaint Assessment: Left femur fracture status post repair at [place] Severe chronic lower extremity edema Hypothyroidisim Anemia Hypoalbuminemia Advanced age Postop constipation Acute blood loss anemia iron def and b12 def supplementing both Postop constipation-resolved Plan: Pain control Bowel regimen PT and OT Supportive care 03/14/2022: Pain control Therapy protocol 03/15/2022: Check iron and B12 Monitor pain Bowel regimen 03/16/2022: Supportive care Continue current treatment Monitor blood pressure after addition of blood pressure meds 03/17/2022: Blood pressure management Pain control 03/18/2022: Iron infusion tomorrow morning along with B12 03/19/2022: Supportive care Iron infusion and B12 03/20/2022: Supportive care 03/21/2022: Monitor abdominal pain Supportive care (1) Intertrochanteric fracture of femur Status: Acute MOLLY MUIR DO Mar 21, 2022 05:04
[2022-03-21] MEDS: CYANOCOBALAMIN 1,000 MCG (VITAMIN B-12) TABLET PO SCH (05:53)
[2022-03-21] MEDS: MULTIVIT W/MINERALS TAB (THERAGRAN M) PO SCH (05:53)
[2022-03-21] MEDS: KCL 20 MEQ TAB (K-DUR) PO SCH (05:53)
[2022-03-21] MEDS: LEVOTHYROXINE 88 MCG (LEVOTHORID) TAB PO SCH (05:54)
[2022-03-21] MEDS: HYDROcodone/APAP 7.5 MG/325 MG (LORTAB, LORCET PLUS) TABLET PO PRN ×2 (07:36→16:32)
[2022-03-21] MEDS: hydrALAZINE (APRESOLINE) 25 MG TAB PO SCH ×3 (07:55→20:27)
[2022-03-21] MEDS: DOCUSATE SODIUM 100 MG (COLACE) CAP PO SCH ×2 (07:55→20:28)
[2022-03-21] MEDS: VITAMIN D3 125 MCG (5,000 UNITS) CAPSULE PO SCH (07:55)
[2022-03-21 07:56] VITALS: BP 160/73
[2022-03-21] MEDS: LACTOBACILLUS ACIDOPHILUS (PROBIOTIC) CAPSULE PO SCH ×3 (07:56→18:30)
[2022-03-21] MEDS: ARTIFICAL TEARS 0.4 ML UNIT DOSE (REFRESH PLUS) OU SCH ×2 (07:56→20:27)
[2022-03-21] MEDS: ASPIRIN 81 MG CHEW (CHILDREN'S ASA) PO SCH ×2 (07:56→20:27)
[2022-03-21] MEDS: LOSARTAN 50 MG (COZAAR) TAB PO SCH (07:56)
[2022-03-21] MEDS: SENNA W/DOCUSATE (SENOKOT S) TABLET PO SCH ×2 (07:57→20:28)
[2022-03-21] MEDS: PANTOPRAZOLE 40 MG (PROTONIX) TAB PO SCH (07:57)
[2022-03-21] MEDS: polyethylene glycoL POWDER 17 GM (MIRALAX) PACK PO SCH ×3 (09:34→20:28)
--- NOTE | 2022-03-21 10:03 | Occupational Ther Daily Note ---
OT Current Status-Daily Note Subjective Pt alert, sitting in recliner. Pt states that she has n/v all night and this morning. After encouragement, pt agrees to therapy. Pt takes increased time with all tasks during session due to n/v. Nrsg aware. Mental Status/Objective Patient Orientation: Person, MR, Time, Situation ADL-Treatment Pt agrees to shower. Declines toileting or oral care. Min A for sit to stand from shower bench for shower transfer using FWW, grabbars and shower bench. Pt completed all areas in sitting except assist with lower legs/feet and buttocks. After set up, pt able to complete upper body dressing by self. Assistance for lower body dressing/footwear per pt guidance of what PLOF is. Therapy Code Descriptions/Definitions Functional [place] Measure: 0=Not Assessed/NA 4=Minimal Assistance 1=Total Assistance 5=Supervision or Setup 2=Maximal Assistance 6=Modified [place] 3=Moderate Assistance 7=Complete IndependenceSCALE: Activities may be completed with or without assistive devices. 7-Sckkzdmbyy-ypjhhmm completes the activity by him/herself with no assistance from a helper. 5-Set-up or Clean-up Assistance-helper sets up or cleans up; patient completes activity. [place] assists only prior to or following the activity. 4-Supervision or Touching Assistance-helper provides verbal cues and/or t ouching/steadying and/or contact guard assistance as patient completes activity. Assistance may be provided throughout the activity or intermittently. 3-Partial/Moderate Assistance-helper does LESS THAN HALF the effort. [place] lifts, holds or supports trunk or limbs, but provides less than half the effort. 2-Substantial/Maximal Assistance-helper does MORE THAN HALF the effort. [place] lifts or holds trunk or limbs and provides more than half the effort. 6-Ujlwttoyo-wxopfc does ALL the effort. Patient does none of the effort to complete the activity. Or, the assistance of 2 or more helpers is required for the patient to complete the activity. If activity was not attempted, code reason: 7-Patient Refused. 9-Not Applicable-not attempted and the patient did not perform the activity before the current illness, exacerbation or injury. 10-Not Attempted due to Environmental Limitations-(lack of equipment, weather restraints, etc.). 88-Not Attempted due to Medical Conditions or Safety Concerns. Shower/Bathe Self (QC): 3 Upper Body Dressing (QC): 5 Lower Body Dressing (QC): 2 (assists with hiking pants over hips) On/Off Footwear: 1 OT Short Term Goals Short Term Goals Time Frame: Mar 29, 2022 Toileting hygiene: 3 Shower/bathe self: 3 Lower body dressin Putting on/taking off footwear: 3 OT Senior Care Goals Boom Master Goals Time Frame: Apr 12, 2022 Acute change in mental status: 0 Inattention: 0 Disorganized thinkin Altered level of consciousness: 0 Eating (QC): 6 Oral Hygiene (QC): 6 Toileting Hygiene (QC): 4 Shower/Bathe Self (QC): 4 Upper Body Dressing (QC): 5 Lower Body Dressing (QC): 4 On/Off Footwear (QC): 4 Additional Goals: 1-Demonstrate ADL Tasks, 2-Verbalize Understanding, 3- ImproveStrength/Omari 1=Demonstrate adherence to instructed precautions during ADL tasks. 2=Patient will verbalize/demonstrate understanding of assistive devices/modifications for ADL. 3=Patient will improve strength/tolerance for activity to enable patient to perform ADL's. OT Education/Plan Problem List/Assessment Assessment: Decreased Activ Tolerance, Impaired Self-Care Skills, Restricted Funct UE ROM Discharge Recommendations Plan/Recommendations: Continue POC Treatment Plan/Plan of Care Patient would benefit from OT for education, treatment and training to promote independence in ADL's, mobility, safety and/or upper extremity function for ADL's. Plan of Care: ADL Retraining, Functional Mobility, Group Exercise/Act as Ind, UE Funct Exercise/Act Treatment Duration: Apr 12, 2022 Frequency: At least 5 of 7 days/Wk (IRF) Estimated Hrs Per Day: 1.5 hours per day Agreement: Yes Rehab Potential: Guarded Time Start Time: 08:30 Stop Time: 10:00 DATE: Mar 21, 2022 Total Time Billed (hr/min): 90 Billed Treatment Time 1 visit-ADL 6 (90 min) JANAE GRIJALVA Mar 21, 2022 10:03
--- NOTE | 2022-03-21 11:10 | Physical Therapy Daily Note ---
PT Daily Note-Current Subjective Patient in recliner pre tx, agrees to PT with encouragement, has 5/10 pain in left hip. Patient states she has been throwing up all night and threw up a couple of times with OT this morning. Nurse is aware of her nausea. Pain Section J - Health Conditions 1. Rarely or not at all 2. Occasionally 3. Frequently 4. Almost constantly 8. Unable to answer Pain Effect on Sleep: 2 Pain Interference with Therapy: 2 Pain Interference w/Day-to-Day: 2 Appearance Patient in recliner post tx with nurse call, phone, tray, emesis basin. Mental Status Patient Orientation: Person, Place, Situation Transfers SCALE: Activities may be completed with or without assistive devices. 5-Hhschwhcue-otzfzcg completes the activity by him/herself with no assistance from a helper. 5-Set-up or Clean-up Assistance-helper sets up or cleans up; patient completes activity. [place] assists only prior to or following the activity. 4-Supervision or Touching Assistance-helper provides verbal cues and/or touching/steadying and/or contact guard assistance as patient completes activity. Assistance may be provided throughout the activity or intermittently. 3-Partial/Moderate Assistance-helper does LESS THAN HALF the effort. [place] lifts, holds or supports trunk or limbs, but provides less than half the effort. 2-Substantial/Maximal Assistance-helper does MORE THAN HALF the effort. [place] lifts or holds trunk or limbs and provides more than half the effort. 2-Zsshzufwd-bgalhp does ALL the effort. Patient does none of the effort to complete the activity. Or, the assistance of 2 or more helpers is required for the patient to complete the activity. If activity was not attempted, code reason: 7-Patient Refused. 9-Not Applicable-not attempted and the patient did not perform the activity before the current illness, exacerbation or injury. 10-Not Attempted due to Environmental Limitations-(lack of equipment, weather restraints, etc.). 88-Not Attempted due to Medical Conditions or Safety Concerns. Sit to Stand (QC): 3 Chair/Oio-ko-Gjgbm Xfer(QC): 4 Min assist for sit to stand from lower surfaces. Weight Bearing Full Weight Bearing Left Lower Extremity: Left Weight Bearing/Tolerated Wheelchair Training Wheel 50 ft with 2 turns (QC): 4 Type of Wheelchair: Manual 100', SBA Exercises Seated Therapy Exercises: Ankle pumps, Hip abd/add (with ball and RTB) Seated Reps: 20 LAQ alternating for 5 min NuStep Minutes: 15 NuStep Workload: 3 (left leg not used per patient request due to pain) Treatments transfers, LE ROM and strengthening Assessment Current Status: Poor Progress Patient is very nauseated, required many rest breaks due to fatigue and nausea. Tx had to be stopped due to vomiting. PT Short Term Goals Short Term Goals Time Frame: Mar 20, 2022 Roll Left & Right: 3 (mod A) Sit to lyin (modA) Lying to sitting on side of be: 3 (modA) Sit to stand: 3 (modA) Chair/trh-bd-fvoli transfer: 3 (modA) Walk 10 feet: 3 (modA) PT Senior Care Goals Distribution Manager Goals PT Senior Care Goals Time Frame: Mar 27, 2022 Roll Left & Right (QC): 3 (Rusty) Sit to Lying (QC): 3 (Rusty) Lying-Sitting on Side/Bed(QC): 3 (Rusty) Sit to Stand (QC): 3 (Rusty) Chair/Zxz-pe-Hllwf Xfer(QC): 3 (Rusty) Toilet Transfer (QC): 3 (Rusty) Car Transfer (QC): 3 (Rusty) Does the Patient Walk: No and Walking Goal IS indicated Walk 10 feet (QC): 3 (Rusty) Walk 50ft with 2 Turns (QC): 88 Walk 150 ft (QC): 88 Walking 10ft on Uneven Surface: 3 (Rusty) 1 Step (curb) (QC): 88 4 Steps (QC): 88 12 Steps (QC): 88 Picking up an Object (QC): 4 (CGA using a fruit rancher) Wheel 50 feet with 2 turns (QC: 4 (SBA) Wheel 150 feet: 4 (SBA) PT Plan Problem List Problem List: Activity Tolerance, Functional Strength, Safety, Balance, Gait, Transfer, Bed Mobility, ROM Treatment/Plan Treatment Plan: Continue Plan of Care Treatment Plan: Bed Mobility, Education, Functional Activity Omari, Functional Strength, Group Therapy, Gait, Safety, Therapeutic Exercise, Transfers Treatment Duration: Mar 27, 2022 Frequency: At least 5 of 7 days/Wk (IRF) Estimated Hrs Per Day: 1.5 hours per day Patient and/or Family Agrees t: Yes Safety Risks/Education Patient Education: Transfer Techniques, Correct Positioning, Safety Issues Teaching Recipient: Patient Teaching Methods: Demonstration, Discussion Response to Teaching: Reinforcement Needed Time Time In: 1010 Time Out: 1110 DATE: Mar 21, 2022 Total Billed Treatment Time: 60 Total Billed Treatment 1 visit EX 30' FA 30' DIAMANTE CANALES PT Mar 21, 2022 11:10
[2022-03-21 11:44] LABS: BASOPHILS # (AUTO) 0.1 10^3/uL (0.0-0.1); BASOPHILS % (AUTO) 1 % (0-10); EOSINOPHILS # (AUTO) 0.1 10^3/uL (0.0-0.3); EOSINOPHILS % (AUTO) 1 % (0-10); HEMATOCRIT 31 % (35-52); HEMOGLOBIN 10.1 g/dL (11.5-16.0); LYMPHOCYTES # (AUTO) 1.6 10^3/uL (1.0-4.0); LYMPHOCYTES % (AUTO) 13 % (12-44); MEAN CORPUSCULAR HEMOGLOBIN 31 pg (25-34); MEAN CORPUSCULAR HGB CONC 33 g/dL (32-36); MEAN CORPUSCULAR VOLUME 96 fL (80-99); MEAN PLATELET VOLUME 9.2 fL (9.0-12.2); MONOCYTES # (AUTO) 1.1 10^3/uL (0.0-1.0); MONOCYTES % (AUTO) 9 % (0-12); NEUTROPHILS % (AUTO) 75 % (42-75); PLATELET COUNT 500 10^3/uL (130-400)
--- NOTE | 2022-03-21 11:53 | Diagnostic Imaging Report ---
CLINICAL INDICATION: Patient with abdominal pain. EXAM: X-ray of the abdomen with multiple supine and upright views. COMPARISON: None. FINDINGS: There is no intra-abdominal free air. There are air-dilated loops of transverse colon and splenic flexure of the colon. There is a large amount of stool within the left colon and right colon regions. There is a nxepn-ly-ielmvwim amount of stool in the rectum region. Phleboliths are seen in the pelvis. There is intramedullary nail involving the left proximal femur region. 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 IMPRESSION: 1: There is significant stool load seen throughout the colon, mostly in the right colon and splenic flexure region. These findings may be related to constipation. 2: There is no definite intestinal obstruction. There is no intra-abdominal free air. Dictated by: Dictated on workstation # [id number]
[2022-03-21 11:58] LABS: ERYTHROCYTE SEDIMENTATION RATE 49 MM/HR (0-30)
[2022-03-21 12:03] LABS: ALBUMIN 3.8 GM/DL (3.2-4.5); BILIRUBIN,TOTAL 0.6 MG/DL (0.1-1.0); CALCIUM 9.4 MG/DL (8.5-10.1); CREATININE SERUM 1.08 MG/DL (0.60-1.30); POTASSIUM 3.9 MMOL/L (3.6-5.0); TOTAL PROTEIN 7.6 GM/DL (6.4-8.2)
--- NOTE | 2022-03-21 13:29 | Consultation - Surgery ---
FAY RUVALCABA 03/21/22 1329: History of Present Illness History of Present Illness Patient Consulted On(levon/time) 03/21/22 13:20 Date Seen by Provider: Mar 21, 2022 Time Seen by Provider: 13:20 History of Present Illness Lesly Green is an 86 yo female who was admitted to inpatient rehab status post left fracture hip repair at [facility] on 03/11/22. The patient states she sustained a fall on [place] requiring surgery. The patient has been rehabiliting for the past week and 1-2 days ago had onset of mild abdominal pain that has since gradually worsened and localized to her LLQ. The patient further reports multiple episodes of vomiting (20-30 by her count) since the onset of her abdominal pain, and she endorses intermittent urinary incontinence associated with her episodes of her vomiting. She last vomited several hours ago this morning. Patient denies any history of similar abdominal pain or struggling with constipation at home. Per the patient's nurse, the patient last had a BM yesterday which was small to moderate in size and of normal consistency; the nurse remarks the patient initially complained of LUQ abdominal pain this morning. The nurse also notes the patient was able to pass gas around 1300 today. The patient at this time denies any fever, chills, chest pain, cough, shortness of breath, dysuria, urinary retention, headache, or eye pain. Allergies and Home Medications Allergies Coded Allergies: No Known Drug Allergies (Unverified , 10/06/21) Patient Home Medication List Home Medication List Reviewed: Yes Acetaminophen (Tylenol Extra Strength) 500 Mg Tablet, 500 MG PO TID PRN for PAIN-MILD (1-4), (Reported) Entered as Reported by: NINO CAVAZOS on 10/08/21 0937 Last Action: Continued Amlodipine Besylate (Amlodipine Besylate) 5 Mg Tablet, 5 MG PO HS, (Reported) Entered as Reported by: STEVEN HOLLIDAY on 03/13/22 1440 Last Action: Continued Aspirin (Aspirin) 81 Mg Tab.chew, 81 MG PO BID, (Reported) Entered as Reported by: STEVEN HOLLIDAY on 03/13/22 1439 Last Action: Continued Cholecalciferol (Vitamin D3) (Vitamin D3) 125 Mcg (5000 Unit) Tablet, 125 MCG PO DAILY, (Reported) Entered as Reported by: NINO CAVAZOS on 10/08/21 0935 Last Action: Continued Ferrous Sulfate (Iron) 325 Mg (65 Mg Iron) Tablet, 325 MG PO Q48H, (Reported) Entered as Reported by: NINO CAVAZOS on 10/08/21 0953 Last Action: Continued Furosemide (Lasix) 20 Mg Tablet, 20 MG PO DAILY PRN, (Reported) Entered as Reported by: EILEEN MELÉNDEZ on 10/06/21 1645 Last Action: Continued Hydrocodone/Acetaminophen (Hydrocodone-Acetamin 7.5-325) 7.5 Mg-325 Mg Tablet, 1 EACH PO Q4H, (Reported) Entered as Reported by: STEVEN HOLLIDAY on 03/13/22 1443 Last Action: Held Lactobacillus Acidophilus/Pect (Acidophilus-Pectin Capsule) 75 Million Cell-100 Mg Capsule, 2 EACH PO TIDWM Prescribed by: AMBER PAULINO on 10/09/21 0831 Last Action: Continued Levothyroxine Sodium (Levothyroxine) 88 Mcg Capsule, 88 MCG PO DAILY, (Reported) Entered as Reported by: EILEEN MELÉNDEZ on 10/06/21 1640 Last Action: Converted Losartan Potassium (Losartan Potassium) 50 Mg Tablet, 50 MG PO DAILY, (Reported) Entered as Reported by: STEVEN HOLLIDAY on 03/13/22 1436 Last Action: Continued Multivitamins-Min/FA/Ginkgo (One Daily For Women 50+ Adv Tb) 400 Mcg-120 Mg Tablet, 1 EACH PO DAILY, (Reported) Entered as Reported by: NINO CAVAZOS on 10/08/21934 Last Action: Converted Pantoprazole Sodium (Pantoprazole Sodium) 40 Mg Tablet.dr, 40 MG PO DAILY Prescribed by: MOLLY MUIR on 10/22/21 0549 Last Action: Continued Polyethylene Glycol 3350 (Miralax) 17 Gram Powd.pack, 17 GM PO DAILY, (Reported) Entered as Reported by: STEVEN HOLLIDAY on 03/13/22 1432 Last Action: Continued Potassium Chloride (Potassium Chloride) 20 Meq Tablet.er, 20 MEQ PO DAILY, (Reported) Entered as Reported by: EILEEN MELÉNDEZ on 10/06/21 1646 Last Action: Converted [Systane] , 1 DROP BID, (Reported) Entered as Reported by: EILEEN MELÉNDEZ on 10/06/21 5781 Last Action: Converted Past Uidcadh-Hwrizv-Akzdds Hx Patient Social History Smoking Status: Former Smoker (quit 55+ years ago) Alcohol Use?: No Seasonal Allergies Seasonal Allergies: No Surgeries History of Surgeries: Yes Surgeries: Orthopedic (left hip fracture repair) Respiratory History of Respiratory Disorde: No Cardiovascular History of Cardiac Disorders: Yes Cardiac Disorders: Deep Vein Thrombosis, Hypertension Neurological History of Neurological Disord: No Reproductive System Hx Reproductive Disorders: No Sexually Transmitted Disease: No HIV/AIDS: No Gastrointestinal History of Gastrointestinal Di: No Gastrointestinal Disorders: Pancreatitis Musculoskeletal History of Musculoskeletal Dis: No Endocrine History of Endocrine Disorders: Yes Endocrine Disorders: Hypothyroidsim HEENT Loss of Vision: Denies Hearing Impairment: Denies Blood Transfusions History of Blood Disorders: No Adverse Reaction to a Blood Tr: No Family Medical History Significant Family History: Heart Disease, Diabetes (Mother), Hypertension Review of Systems-General Constitutional: No chills, No fever EENTM: No eye pain Respiratory: No cough, No short of breath Cardiovascular: No chest pain Gastrointestinal: abdominal pain (LLQ) Genitourinary: No dysuria, No hesitancy; incontinence Musculoskeletal: other (left hip and leg pain) Physical Exam-General Problems Physical Exam Vital Signs Vital Signs - First Documented 03/15/22 07:09 Temp 36.8 Pulse 72 Resp 16 B/P (MAP) 138/72 (94) Pulse Ox 98 O2 Delivery Nasal Cannula O2 Flow Rate 2.00 Capillary Refill : General Appearance: no apparent distress, other (elderly) HEENT: PERRL/EOMI, pharynx normal Neck: non-tender; No carotid bruit Respiratory: lungs clear, no respiratory distress, no accessory muscle use Cardiovascular: regular rate, rhythm, no edema, no murmur Peripheral Pulses: 2+ Dorsalis Pedis (R), 2+ Left Dors-Pedis (L), 2+ Radial Pulses (R), 2+ Radial Pulses (L) Gastrointestinal: normal bowel sounds, soft, tenderness (LUQ and LLQ tenderness, worst in LLQ) Extremities: no pedal edema, other (left foot and calf tenderness to palpation) Neurologic/Psychiatric: alert, normal mood/affect Skin: normal color, warm/dry Data Review Labs Laboratory Tests 03/21/22 11:36: White Blood Count 12.0H, Red Blood Count 3.25L, Hemoglobin 10.1L, Hematocrit 31L , Mean Corpuscular Volume 96, Mean Corpuscular Hemoglobin 31, Mean Corpuscular Hemoglobin Concent 33, Red Cell Distribution Width 15.5H, Platelet Count 500H, Mean Platelet Volume 9.2, Immature Granulocyte % (Auto) 1, Neutrophils (%) (Auto) 75, Lymphocytes (%) (Auto) 13, Monocytes (%) (Auto) 9, Eosinophils (%) (Auto) 1, Basophils (%) (Auto) 1, Neutrophils # (Auto) 9.0H, Lymphocytes # (Auto) 1.6, Monocytes # (Auto) 1.1H, Eosinophils # (Auto) 0.1, Basophils # (Auto) 0.1, Immature Granulocyte # (Auto) 0.1, Erythrocyte Sedimentation Rate 49H, Sodium Level 139, Potassium Level 3.9, Chloride Level 102, Carbon Dioxide Level 28, Anion Gap 9, Blood Urea Nitrogen 22H, Creatinine 1.08, Estimat Glom erular Filtration Rate 51, BUN/Creatinine Ratio 20, Glucose Level 136H, Calcium Level 9.4, Corrected Calcium 9.6, Total Bilirubin 0.6, Aspartate Amino Transf (AST/SGOT) 26, Alanine Aminotransferase (ALT/SGPT) 17, Alkaline Phosphatase 88, Total Protein 7.6, Albumin 3.8 Radiology ACUTE ABD SERIES IMPRESSION: 1: There is significant stool load seen throughout the colon, mostly in the right colon and splenic flexure region. These findings may be related to constipation. 2: There is no definite intestinal obstruction. There is no intra-abdominal free air. Assessment/Plan Assessment/Plan Assessment/Plan 1. Abdominal pain likely secondary to constipation 2. Debility due to left hip fracture, s/p repair 03/11/22 3. Stress incontinence 4. Vomiting 5. Elevated BUN 6. HTN, Hypothyroidism, Hx of DVT Patient has stool load in the right transverse colon and splenic flexure, seen on abdominal XR. She was able to pass gas just prior to assessment at 1320 per nurse report. Continue treating with stool softener regimen and pushing fluids. Stress incontinence secondary to vomiting may resolve with improvement of constipation. Continue monitoring symptoms and patient's bowel movement status. Elevated BUN could be due to dehydration, continue pushing fluids. MANPREET HATCH DO 03/22/22 1150: History of Present Illness History of Present Illness Date Seen by Provider: Mar 22, 2022 Time Seen by Provider: 10:16 History of Present Illness Surgery asked to consult regarding constipation. Pt had Orthopedic surgery and is now in inpt rehab, has not had a BM in a few days (although there is confusion about this). She was starting to get abdominal pain and some distention. Allergies and Home Medications Allergies Coded Allergies: No Known Drug Allergies (Unverified , 10/06/21) Patient Home Medication List Home Medication List Reviewed: Yes Acetaminophen (Tylenol Extra Strength) 500 Mg Tablet, 500 MG PO TID PRN for PAIN-MILD (1-4), (Reported) Entered as Reported by: NINO CAVAZOS on 10/08/21 0937 Last Action: Continued Amlodipine Besylate (Amlodipine Besylate) 5 Mg Tablet, 5 MG PO HS, (Reported) Entered as Reported by: STEVEN HOLLIDAY on 03/13/22 1440 Last Action: Continued Aspirin (Aspirin) 81 Mg Tab.chew, 81 MG PO BID, (Reported) Entered as Reported by: STEVEN HOLLIDAY on 03/13/22 1439 Last Action: Continued Cholecalciferol (Vitamin D3) (Vitamin D3) 125 Mcg (5000 Unit) Tablet, 125 MCG PO DAILY, (Reported) Entered as Reported by: NINO CAVAZOS on 10/08/21 0935 Last Action: Continued Ferrous Sulfate (Iron) 325 Mg (65 Mg Iron) Tablet, 325 MG PO Q48H, (Reported) Entered as Reported by: NINO CAVAZOS on 10/08/21 0953 Last Action: Continued Furosemide (Lasix) 20 Mg Tablet, 20 MG PO DAILY PRN, (Reported) Entered as Reported by: EILEEN MELÉNDEZ on 10/06/21 1645 Last Action: Continued Hydrocodone/Acetaminophen (Hydrocodone-Acetamin 7.5-325) 7.5 Mg-325 Mg Tablet, 1 EACH PO Q4H, (Reported) Entered as Reported by: STEVEN HOLLIDAY on 03/13/22 1443 Last Action: Held Lactobacillus Acidophilus/Pect (Acidophilus-Pectin Capsule) 75 Million Cell-100 Mg Capsule, 2 EACH PO TIDWM Prescribed by: AMBER PAULINO on 10/09/21 0831 Last Action: Continued Levothyroxine Sodium (Levothyroxine) 88 Mcg Capsule, 88 MCG PO DAILY, (Reported) Entered as Reported by: EILEEN MELÉNDEZ on 10/06/21 1640 Last Action: Converted Losartan Potassium (Losartan Potassium) 50 Mg Tablet, 50 MG PO DAILY, (Reported) Entered as Reported by: STEVEN HOLLIDAY on 03/13/22 1436 Last Action: Continued Multivitamins-Min/FA/Ginkgo (One Daily For Women 50+ Adv Tb) 400 Mcg-120 Mg Tablet, 1 EACH PO DAILY, (Reported) Entered as Reported by: NINO CAVAZOS on 10/08/21 0935 Last Action: Converted Pantoprazole Sodium (Pantoprazole Sodium) 40 Mg Tablet.dr, 40 MG PO DAILY Prescribed by: MOLLY MUIR on 10/22/21 0549 Last Action: Continued Polyethylene Glycol 3350 (Miralax) 17 Gram Powd.pack, 17 GM PO DAILY, (Reported) Entered as Reported by: STEVEN HOLLIDAY on 03/13/22 1432 Last Action: Continued Potassium Chloride (Potassium Chloride) 20 Meq Tablet.er, 20 MEQ PO DAILY, (Reported) Entered as Reported by: EILEEN MELÉNDEZ on 10/06/21 164 Last Action: Converted [Systane] , 1 DROP BID, (Reported) Entered as Reported by: EILEEN MELÉNDEZ on 10/06/21 164 Last Action: Converted Past Yujaygi-Txrjqk-Faqund Hx Patient Social History Smoking Status: Former Smoker (quit 55+ years ago) Alcohol Use?: No Surgeries History of Surgeries: Yes Surgeries: Orthopedic (left hip fracture repair) Respiratory History of Respiratory Disorde: No Cardiovascular History of Cardiac Disorders: Yes Cardiac Disorders: Deep Vein Thrombosis, Hypertension Neurological History of Neurological Disord: Yes Neurological Disorders: Dementia Genitourinary History of Genitourinary Disor: No Gastrointestinal History of Gastrointestinal Di: Yes Gastrointestinal Disorders: Pancreatitis Musculoskeletal History of Musculoskeletal Dis: Yes Musculoskeletal Disorders: Arthritis, Fractures Endocrine History of Endocrine Disorders: No HEENT History of HEENT Disorders: No Cancer History of Cancer: No Psychosocial History of Psychiatric Problem: No Integumentary History of Skin or Integumenta: No Family Medical History Significant Family History: Heart Disease, Diabetes (Mother), Hypertension Review of Systems-General Constitutional: No chills, No fever EENTM: No eye pain Respiratory: No cough, No short of breath Cardiovascular: No chest pain, No edema Gastrointestinal: abdominal pain (LLQ), constipation; No nausea, No vomiting Genitourinary: No dysuria, No hesitancy; incontinence Musculoskeletal: other (left hip and leg pain) Skin: No change in color, No change in hair/nails Psychiatric/Neurological: Denies Anxiety, Denies Depressed Physical Exam-General Problems Physical Exam General Appearance: no apparent distress, other (elderly) Eyes: Bilateral Eye PERRL, Bilateral Eye EOMI HEENT: pharynx normal; No scleral icterus (R), No scleral icterus (L) Neck: non-tender; No carotid bruit Respiratory: lungs clear, normal breath sounds, no respiratory distress, no accessory muscle use Cardiovascular: regular rate, rhythm, no edema, no murmur Gastrointestinal: normal bowel sounds, soft, distended (may be normal body habitus??), tenderness (very mild with deep palpation) Extremities: no pedal edema, other (left foot and calf tenderness to palpation) Neurologic/Psychiatric: alert, normal mood/affect Skin: normal color, warm/dry Data Review Radiology Date of Exam:03/21/22 ACUTE ABD SERIES CLINICAL INDICATION: Patient with abdominal pain. EXAM: X-ray of the abdomen with multiple supine and upright views. COMPARISON: None. FINDINGS: There is no intra-abdominal free air. There are air-dilated loops of transverse colon and splenic flexure of the colon. There is a large amount of stool within the left colon and right colon regions. There is a smzzz-ri-tbxrehfx amount of stool in the rectum region. Phleboliths are seen in the pelvis. There is intramedullary nail involving the left proximal femur region. 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 IMPRESSION: 1: There is significant stool load seen throughout the colon, mostly in the right colon and splenic flexure region. These findings may be related to constipation. 2: There is no definite intestinal obstruction. There is no intra-abdominal free air. Dictated by: Dictated on workstation # [id number] Dict: 03/21/22 1146 Trans: 03/21/22 1202 AS6 [id number] Interpreted by: COREY AG MD Electronically signed by: COREY AG MD 03/21/22 1202 Assessment/Plan Assessment/Plan Assessment/Plan 1. Abdominal pain likely secondary to constipation - pain resolved 03/22. 2. Debility due to left hip fracture, s/p repair 03/11/22 3. Stress incontinence 4. Vomiting 5. Elevated BUN 6. HTN, Hypothyroidism, Hx of DVT Patient has stool load in the right transverse colon and splenic flexure, seen on abdominal XR. She reports no abdominal pain today with no abdominal tenderne ss on exam; nursing staff states the patient had 1 small BM yesterday. Continue treating with stool softener regimen and pushing fluids. Stress incontinence secondary to vomiting may resolve with improvement of constipation. Continue monitoring symptoms and patient's bowel movement status. Elevated BUN could be due to dehydration, continue pushing fluids. There was some confusion about whether she had a BM, nurse on day shift was told she did, but nothing is documented. Her belly is very soft but slightly distended; pt unsure if this is normal or not. Would continue with stool softener, laxative and increased fluids. Supervisory-Addendum Brief Verification & Attestation Participated in pt care: history, MDM, physical Personally performed: exam, history, MDM, supervision of care Care discussed with: Medical Student Procedures: n/a Verification and Attestation of Medical Student E/M Service A medical student performed and documented this service. I then reviewed and verified all information documented by the medical student and made modifications to such information, when appropriate. I personally performed a physical exam, medical decision making and then discussed any differences between the notes and made revisions as necessary to create one note. Manpreet Hatch , 03/22/22 , 11:50 FAY RUVALCABA Mar 21, 2022 13:29 MANPREET HATCH DO Mar 22, 2022 11:50
[2022-03-21] MEDS: IRON SUCROSE 200 MG/10 ML (VENOFER) VIAL IV SCH (13:34)
--- NOTE | 2022-03-21 14:06 | Physical Therapy Daily Note ---
PT Daily Note-Current Subjective Pt. in bed, c/o continued nausea but agrees to exercises in bed, "gentle" Pain Numeric Pain Scale: 6 Location: Left Location Body Site: Hip Pain Description: Ache Section J - Health Conditions 1. Rarely or not at all 2. Occasionally 3. Frequently 4. Almost constantly 8. Unable to answer Pain Effect on Sleep: 2 Pain Interference with Therapy: 2 Pain Interference w/Day-to-Day: 2 Mental Status Patient Orientation: Normal For Age Attachments: Other-See Comments (iron infuser) Transfers SCALE: Activities may be completed with or without assistive devices. 2-Fukzelhxcq-tbiuclw completes the activity by him/herself with no assistance from a helper. 5-Set-up or Clean-up Assistance-helper sets up or cleans up; patient completes activity. [place] assists only prior to or following the activity. 4-Supervision or Touching Assistance-helper provides verbal cues and/or touching/steadying and/or contact guard assistance as patient completes activity. Assistance may be provided throughout the activity or intermittently. 3-Partial/Moderate Assistance-helper does LESS THAN HALF the effort. [place] lifts, holds or supports trunk or limbs, but provides less than half the effort. 2-Substantial/Maximal Assistance-helper does MORE THAN HALF the effort. [place] lifts or holds trunk or limbs and provides more than half the effort. 1-Vejwssiqq-clrhds does ALL the effort. Patient does none of the effort to complete the activity. Or, the assistance of 2 or more helpers is required for the patient to complete the activity. If activity was not attempted, code reason: 7-Patient Refused. 9-Not Applicable-not attempted and the patient did not perform the activity before the current illness, exacerbation or injury. 10-Not Attempted due to Environmental Limitations-(lack of equipment, weather restraints, etc.). 88-Not Attempted due to Medical Conditions or Safety Concerns. pt. would not attempt trying to push self up in bed using RLE and UEs secondary to nausea, no rolling secondary to pain and nausea Weight Bearing Full Weight Bearing Left Lower Extremity: Left Weight Bearing/Tolerated Exercises Supine Ex: Ankle pumps, Quad Set, Glut sets, Heel Slides, Short Arc Quads, Hip abd/add Supine Reps: 15 Treatments very slow LE ex as above with breaks secondary to pts waves of nausea Assessment Current Status: Fair Progress nausea limits Rx this PM PT Short Term Goals Short Term Goals Time Frame: Mar 20, 2022 Roll Left & Right: 3 (mod A) Sit to lyin (modA) Lying to sitting on side of be: 3 (modA) Sit to stand: 3 (modA) Chair/mlg-dz-pnybz transfer: 3 (modA) Walk 10 feet: 3 (modA) PT Materials Analyst Goals Prison Goals PT Materials Analyst Goals Time Frame: Mar 27, 2022 Roll Left & Right (QC): 3 (Rusty) Sit to Lying (QC): 3 (Rusty) Lying-Sitting on Side/Bed(QC): 3 (Rusty) Sit to Stand (QC): 3 (Rusty) Chair/Plc-bh-Zrhuf Xfer(QC): 3 (Rusty) Toilet Transfer (QC): 3 (Rusty) Car Transfer (QC): 3 (Rusty) Does the Patient Walk: No and Walking Goal IS indicated Walk 10 feet (QC): 3 (Rusty) Walk 50ft with 2 Turns (QC): 88 Walk 150 ft (QC): 88 Walking 10ft on Uneven Surface: 3 (Rusty) 1 Step (curb) (QC): 88 4 Steps (QC): 88 12 Steps (QC): 88 Picking up an Object (QC): 4 (CGA using a floor broker) Wheel 50 feet with 2 turns (QC: 4 (SBA) Wheel 150 feet: 4 (SBA) PT Plan Treatment/Plan Treatment Plan: Continue Plan of Care Treatment Plan: Bed Mobility, Education, Functional Activity Omari, Functional Strength, Group Therapy, Gait, Safety, Therapeutic Exercise, Transfers Treatment Duration: Mar 27, 2022 Frequency: At least 5 of 7 days/Wk (IRF) Estimated Hrs Per Day: 1.5 hours per day Patient and/or Family Agrees t: Yes Safety Risks/Education Patient Education: Correct Positioning, Disease Process Teaching Recipient: Patient Response to Teaching: Reinforcement Needed Time Time In: 1330 Time Out: 1400 DATE: Mar 21, 2022 Total Billed Treatment Time: 30 Total Billed Treatment 1,EX30m CANDACE QUIJANO FOUNDRY METALLURGIST Mar 21, 2022 14:06
[2022-03-21] MEDS: FERROUS SULF 325 MG (IRON) TAB PO SCH (15:45)
[2022-03-21 20:11] VITALS: BP 145/70
[2022-03-21] MEDS: amLODIPine 5 MG (NORVASC) TAB PO SCH (20:28)
[2022-03-21] MEDS: ACETAMINOPHEN 325 MG TABLET PO PRN (20:28)
--- NOTE | 2022-03-22 05:26 | PM&R Progress Note ---
Subjective HPI/CC On Admission Date Seen by Provider: Mar 22, 2022 Time Seen by Provider: 12:30 Subjective/Events-last exam 03/22/2022: Patient doing well except for constipation Lactulose being given every 4 hours Walking around pretty well No other concerns 03/21/2022: Abdominal pain reported KUB shows constipation Labs reviewed Dr Perkins consulted 03/20/2022: Doing well Pain controlled No falls Tolerating iron infusions 03/19/2022: Patient doing well Blood pressure good Bowels moving Pain controlled 03/18/2022: Improved status No pain reported unless she moves BP is usually elevated she reports as it is here now Labs stable 03/17/2022: Patient doing well No pain is reported when she is sleeping Blood pressure is elevated Monitoring closely 03/16/2022: Patient doing well Blood pressure really elevated today Added blood pressure medicine 03/15/2022: Patient doing well Took a shower Dulcolax suppository will be ordered for constipation continues Pain is controlled 03/14/2022: Patient settling in well Pain is pretty well controlled with pain med No major concerns Bowel regimen No falls Review of Systems General: Fatigue, Malaise Gastrointestinal: Abdominal Pain Objective Exam Vital Signs Vital Signs Date Time Temp Pulse Resp B/P (MAP) Pulse Ox O2 Delivery O2 Flow Rate FiO2 03/22/22 20:30 36.9 84 18 162/74 (103) 95 Room Air 03/19/22 21:15 1.00 Capillary Refill : General Appearance: No Apparent Distress, WD/WN, Chronically ill, Obese HEENT: PERRL/EOMI, Normal ENT Inspection, Pharynx Normal Neck: Full Range of Motion, Normal Inspection, Non Tender, Supple, Carotid Bruit Respiratory: Chest Non Tender, Lungs Clear, Normal Breath Sounds, No Accessory Muscle Use, No Respiratory Distress Cardiovascular: Regular Rate, Rhythm, No Edema, No Gallop, No JVD, No Murmur, Normal Peripheral Pulses Gastrointestinal: Normal Bowel Sounds, No Organomegaly, No Pulsatile Mass, Non Tender, Soft Back: Normal Inspection, No CVA Tenderness, No Vertebral Tenderness Extremity: Normal Capillary Refill, Normal Inspection, Normal Range of Motion (Except left), Non Tender, No Calf Tenderness, No Pedal Edema Neurologic/Psychiatric: Alert, Oriented x3, No Motor/Sensory Deficits, Normal Mood/Affect, data entry assistant II-XII Norm as Tested, Abnormal Gait, Motor Weakness (Left leg) Skin: Normal Color, Warm/Dry Lymphatic: No Adenopathy Results/Procedures Lab Patient resulted labs reviewed. FIM Transfers Therapy Code Descriptions/Definitions Functional [place] Measure: 0=Not Assessed/NA 4=Minimal Assistance 1=Total Assistance 5=Supervision or Setup 2=Maximal Assistance 6=Modified [place] 3=Moderate Assistance 7=Complete IndependenceSCALE: Activities may be completed with or without assistive devices. 1-Gupootcczf-xblonua completes the activity by him/herself with no assistance from a helper. 5-Set-up or Clean-up Assistance-helper sets up or cleans up; patient completes activity. [place] assists only prior to or following the activity. 4-Supervision or Touching Assistance-helper provides verbal cues and/or touching/steadying and/or contact guard assistance as patient completes activity. Assistance may be provided throughout the activity or intermittently. 3-Partial/Moderate Assistance-helper does LESS THAN HALF the effort. [place] lifts, holds or supports trunk or limbs, but provides less than half the effort. 2-Substantial/Maximal Assistance-helper does MORE THAN HALF the effort. [place] lifts or holds trunk or limbs and provides more than half the effort. 1-Ztxhiiibk-huetmg does ALL the effort. Patient does none of the effort to complete the activity. Or, the assistance of 2 or more helpers is required for the patient to complete the activity. If activity was not attempted, code reason: 7-Patient Refused. 9-Not Applicable-not attempted and the patient did not perform the activity before the current illness, exacerbation or injury. 10-Not Attempted due to Environmental Limitations-(lack of equipment, weather restraints, etc.). 88-Not Attempted due to Medical Conditions or Safety Concerns. Roll Left to Right (QC): 2 Sit to Lying (QC): 1 Sit to Stand (QC): 3 Chair/Nar-ke-Vohob Xfer(QC): 4 Car Transfer (QC): 2 Gait Training Does the Patient Walk?: Yes Distance: 200' Walk 10 feet (QC): 5 Walk 50 ft with 2 Turns(QC): 5 Walk 150 ft (QC): 5 Walking 10ft/uneven surface-QC: 88 Gait Persons Needed: 1 Gait Assistive Device: FWW Wheelchair Training Does the Pt Use a Wheelchair?: No Distance: 150' Wheel 50 ft with 2 turns (QC): 4 Wheel 150 ft (QC): 3 Type of Wheelchair: Manual Stair Training 1 Step (curb) (QC): 88 4 Steps (QC): 88 12 Steps (QC): 88 Balance Picking up an Object (QC): 88 ADL-Treatment Eating (QC): 6 Oral Hygiene (QC): 4 Shower/Bathe Self (QC): 3 Upper Body Dressing (QC): 5 Lower Body Dressing (QC): 2 (assists with hiking pants over hips) On/Off Footwear (QC): 1 Toileting Hygiene (QC): 4 Toilet Transfer (QC): 4 Assessment/Plan Assessment and Plan Assess & Plan/Chief Complaint Assessment: Left femur fracture status post repair at [place] Severe chronic lower extremity edema Hypothyroidisim Anemia Hypoalbuminemia Advanced age Postop constipation Acute blood loss anemia iron def and b12 def supplementing both Postop constipation-resolved but recurred on 03/21/2022 prompting general surgery consultation Plan: Pain control Bowel regimen PT and OT Supportive care 03/14/2022: Pain control Therapy protocol 03/15/2022: Check iron and B12 Monitor pain Bowel regimen 03/16/2022: Supportive care Continue current treatment Monitor blood pressure after addition of blood pressure meds 03/17/2022: Blood pressure management Pain control 03/18/2022: Iron infusion tomorrow morning along with B12 03/19/2022: Supportive care Iron infusion and B12 03/20/2022: Supportive care 03/21/2022: Monitor abdominal pain Supportive care 03/22/2022: Supportive care Monitor closely Aggressive bowel regimen (1) Intertrochanteric fracture of femur Status: Acute MOLLY MUIR DO Mar 22, 2022 05:26
[2022-03-22] MEDS: LEVOTHYROXINE 88 MCG (LEVOTHORID) TAB PO SCH (06:24)
[2022-03-22] MEDS: CYANOCOBALAMIN 1,000 MCG (VITAMIN B-12) TABLET PO SCH (06:27)
[2022-03-22] MEDS: KCL 20 MEQ TAB (K-DUR) PO SCH (06:27)
[2022-03-22] MEDS: MULTIVIT W/MINERALS TAB (THERAGRAN M) PO SCH (06:27)
[2022-03-22 07:52] VITALS: BP 159/71
[2022-03-22] MEDS: polyethylene glycoL POWDER 17 GM (MIRALAX) PACK PO SCH ×3 (08:20→21:02)
[2022-03-22] MEDS: VITAMIN D3 125 MCG (5,000 UNITS) CAPSULE PO SCH (08:25)
[2022-03-22] MEDS: LACTOBACILLUS ACIDOPHILUS (PROBIOTIC) CAPSULE PO SCH ×3 (08:25→17:06)
[2022-03-22] MEDS: ASPIRIN 81 MG CHEW (CHILDREN'S ASA) PO SCH ×2 (08:25→21:03)
[2022-03-22] MEDS: LOSARTAN 50 MG (COZAAR) TAB PO SCH (08:26)
[2022-03-22] MEDS: SENNA W/DOCUSATE (SENOKOT S) TABLET PO SCH ×2 (08:26→21:03)
[2022-03-22] MEDS: hydrALAZINE (APRESOLINE) 25 MG TAB PO SCH ×3 (08:26→21:03)
[2022-03-22] MEDS: DOCUSATE SODIUM 100 MG (COLACE) CAP PO SCH ×2 (08:26→21:03)
[2022-03-22] MEDS: HYDROcodone/APAP 7.5 MG/325 MG (LORTAB, LORCET PLUS) TABLET PO PRN ×2 (08:27→15:34)
[2022-03-22] MEDS: PANTOPRAZOLE 40 MG (PROTONIX) TAB PO SCH (08:27)
[2022-03-22] MEDS: LACTULOSE SYRUP 10GM/15ML (ENULOSE) 30ML UDC PO PRN ×2 (08:29→14:42)
[2022-03-22] MEDS: ARTIFICAL TEARS 0.4 ML UNIT DOSE (REFRESH PLUS) OU SCH ×2 (08:30→21:02)
--- NOTE | 2022-03-22 08:40 | Progress Note - Surgery ---
FAY RUVALCABA 03/22/22 0840: Subjective Date Seen by a Provider: Mar 22, 2022 Time Seen by a Provider: 08:00 Subjective/Events-last exam The patient is seated in her recliner at time of evaluation. The patient reports she is feeling well today. She denies any abdominal pain at this time. She states she is passing gas but still has not had a bowel movement. She denies any vomit and indicates she has been taking a good amount of fluid without issue. The patient denies any other new pains or concerns. The patient's nurse states the patient had one small BM yesterday, though she is unsure at what time. Review of Systems General: No Chills, No Fatigue HEENT: No Head Aches Pulmonary: No Dyspnea Cardiovascular: No: Chest Pain Gastrointestinal: Constipation; No: Vomiting, Abdominal Pain Genitourinary: No Dysuria, No Retention Objective Exam Vital Signs Date Time Temp Pulse Resp B/P (MAP) Pulse Ox O2 Delivery O2 Flow Rate FiO2 03/22/22 07:52 36.7 79 16 159/71 (100) 95 Room Air 03/21/22 20:30 95 Room Air 03/21/22 20:11 37.3 87 20 145/70 (95) 95 Room Air 03/21/22 09:45 Room Air I & O 03/22/22 07:00 Intake Total 850 ml Balance 850 ml Capillary Refill : General Appearance: No Apparent Distress, Chronically ill HEENT: PERRL/EOMI, Normal ENT Inspection, Pharynx Normal Neck: Non Tender Respiratory: Lungs Clear, Normal Breath Sounds, No Accessory Muscle Use, No Respiratory Distress Cardiovascular: Regular Rate, Rhythm, No Edema, No Murmur, Normal Peripheral Pulses Peripheral Pulses: 2+ Dorsalis Pedis (R), 2+ Left Dors-Pedis (L), 2+ Radial Pulses (R), 2+ Radial Pulses (L) Gastrointestinal: normal bowel sounds, soft; No tenderness Extremity: No Calf Tenderness, No Pedal Edema Neurologic/Psychiatric: Alert, Normal Mood/Affect Skin: Normal Color, Warm/Dry Results Lab Laboratory Tests 03/21/22 11:36: White Blood Count 12.0H, Red Blood Count 3.25L, Hemoglobin 10.1L, Hematocrit 31L , Mean Corpuscular Volume 96, Mean Corpuscular Hemoglobin 31, Mean Corpuscular Hemoglobin Concent 33, Red Cell Distribution Width 15.5H, Platelet Count 500H, Mean Platelet Volume 9.2, Immature Granulocyte % (Auto) 1, Neutrophils (%) (Auto) 75, Lymphocytes (%) (Auto) 13, Monocytes (%) (Auto) 9, Eosinophils (%) (Auto) 1, Basophils (%) (Auto) 1, Neutrophils # (Auto) 9.0H, Lymphocytes # (Auto) 1.6, Monocytes # (Auto) 1.1H, Eosinophils # (Auto) 0.1, Basophils # (Auto) 0.1, Immature Granulocyte # (Auto) 0.1, Erythrocyte Sedimentation Rate 49H, Sodium Level 139, Potassium Level 3.9, Chloride Level 102, Carbon Dioxide Level 28, Anion Gap 9, Blood Urea Nitrogen 22H, Creatinine 1.08, Estimat Glomerular Filtration Rate 51, BUN/Creatinine Ratio 20, Glucose Level 136H, Calcium Level 9.4, Corrected Calcium 9.6, Total Bilirubin 0.6, Aspartate Amino Transf (AST/SGOT) 26, Alanine Aminotransferase (ALT/SGPT) 17, Alkaline Phosphatase 88, Total Protein 7.6, Albumin 3.8 Assessment/Plan Assessment/Plan Assessment/Plan 1. Abdominal pain likely secondary to constipation - pain resolved 03/22. 2. Debility due to left hip fracture, s/p repair 03/11/22 3. Stress incontinence 4. Vomiting 5. Elevated BUN 6. HTN, Hypothyroidism, Hx of DVT Patient has stool load in the right transverse colon and splenic flexure, seen on abdominal XR. She reports no abdominal pain today with no abdominal tenderness on exam; nursing staff states the patient had 1 small BM yesterday. Continue treating with stool softener regimen and pushing fluids. Stress incontinence secondary to vomiting may resolve with improvement of constipation. Continue monitoring symptoms and patient's bowel movement status. Elevated BUN could be due to dehydration, continue pushing fluids. IZAIAH PERKINS DO 03/22/22 1045: Subjective Time Seen by a Provider: 10:16 Subjective/Events-last exam Pt seen and examined, states no abdominal pain and no BM. Review of Systems General: No Chills Pulmonary: No Dyspnea Cardiovascular: No: Chest Pain Gastrointestinal: Constipation; No: Vomiting, Abdominal Pain Objective Exam General Appearance: No Apparent Distress HEENT: PERRL/EOMI Respiratory: Lungs Clear, Normal Breath Sounds, No Accessory Muscle Use, No Respiratory Distress Cardiovascular: Regular Rate, Rhythm, No Murmur Gastrointestinal: non tender, soft, abnormal bowel sounds (hypoactive), distended Assessment/Plan Assessment/Plan Assessment/Plan 1. Abdominal pain likely secondary to constipation - pain resolved 03/22. 2. Debility due to left hip fracture, s/p repair 03/11/22 3. Stress incontinence 4. Vomiting 5. Elevated BUN 6. HTN, Hypothyroidism, Hx of DVT Patient has stool load in the right transverse colon and splenic flexure, seen on abdominal XR. She reports no abdominal pain today with no abdominal tenderness on exam; nursing staff states the patient had 1 small BM yesterday. Continue treating with stool softener regimen and pushing fluids. Stress incontinence secondary to vomiting may resolve with improvement of constipation. Continue monitoring symptoms and patient's bowel movement status. Elevated BUN could be due to dehydration, continue pushing fluids. There was some confusion about whether she had a BM, nurse on day shift was told she did, but nothing is documented. Her belly is very soft but slightly distended; pt unsure if this is normal or not. Would continue with stool softener, laxative and increased fluids. Supervisory-Addendum Brief Verification & Attestation Participated in pt care: history, MDM, physical Personally performed: exam, history, MDM, supervision of care Care discussed with: Medical Student Procedures: n/a Verification and Attestation of Medical Student E/M Service A medical student performed and documented this service. I then reviewed and verified all information documented by the medical student and made modifications to such information, when appropriate. I personally performed a physical exam, medical decision making and then discussed any differences between the notes and made revisions as necessary to create one note. Izaiah Perkins , 03/22/22 , 10:45 FAY RUVALCABA Mar 22, 2022 08:40 IZAIAH PERKINS DO Mar 22, 2022 10:45
--- NOTE | 2022-03-22 10:15 | Occupational Ther Daily Note ---
OT Current Status-Daily Note Subjective Pt alert, sitting in recliner. Pt agrees to therapy. No c/o pain at this time. Mental Status/Objective Patient Orientation: Person, Place, Time, Situation Attachments: IV ADL-Treatment Pt declines shower unless she has a BM then she will want one. Pt did not have BM during OT session. Pt SBA for sit <--> stands due to retropulsion with lower surface. Pt improving with sit <--> stands to SBA from higher surface. Pt completed toileting independent. Standing at sink, pt complete oral care and grooming independent. Therapy Code Descriptions/Definitions Functional [place] Measure: 0=Not Assessed/NA 4=Minimal Assistance 1=Total Assistance 5=Supervision or Setup 2=Maximal Assistance 6=Modified [place] 3=Moderate Assistance 7=Complete IndependenceSCALE: Activities may be completed with or without assistive devices. 8-Lvrafwawpk-xbakejf completes the activity by him/herself with no assistance from a helper. 5-Set-up or Clean-up Assistance-helper sets up or cleans up; patient completes activity. [place] assists only prior to or following the activity. 4-Supervision or Touching Assistance-helper provides verbal cues and/or touch ing/steadying and/or contact guard assistance as patient completes activity. Assistance may be provided throughout the activity or intermittently. 3-Partial/Moderate Assistance-helper does LESS THAN HALF the effort. [place] lifts, holds or supports trunk or limbs, but provides less than half the effort. 2-Substantial/Maximal Assistance-helper does MORE THAN HALF the effort. [place] lifts or holds trunk or limbs and provides more than half the effort. 6-Ckwfaipgz-vmvabz does ALL the effort. Patient does none of the effort to complete the activity. Or, the assistance of 2 or more helpers is required for the patient to complete the activity. If activity was not attempted, code reason: 7-Patient Refused. 9-Not Applicable-not attempted and the patient did not perform the activity before the current illness, exacerbation or injury. 10-Not Attempted due to Environmental Limitations-(lack of equipment, weather restraints, etc.). 88-Not Attempted due to Medical Conditions or Safety Concerns. Eating (QC): 6 Oral Hygiene (QC): 6 Toileting Hygiene (QC): 6 Toilet Transfer (QC): 4 Other Treatment Pt ambulates using FWW with SBA to therapy gym. Pt completed strengthening exercises to increase B UE strength and stamina for daily functional tasks. Skilled instruction throughout session for correct technique and modification when needed. Wrist flex/ext/rad dev/uln dev with 2# hand wt, 3 sets 10 reps. Resistive clothes pins with each hand 1 set each. Fine motor and gross motor UE tasks completed 3x's against gravity for L UE and 1# wrist wt on R UE. After therapy, pt sitting in recliner with call light/phone in reach. All needs met in room. OT Short Term Goals Short Term Goals Time Frame: Mar 29, 2022 Toileting hygiene: 3 Shower/bathe self: 3 Lower body dressin Putting on/taking off footwear: 3 OT Coding Team Lead Goals Custodial Goals Time Frame: Apr 12, 2022 Acute change in mental status: 0 Inattention: 0 Disorganized thinkin Altered level of consciousness: 0 Eating (QC): 6 Oral Hygiene (QC): 6 Toileting Hygiene (QC): 4 Shower/Bathe Self (QC): 4 Upper Body Dressing (QC): 5 Lower Body Dressing (QC): 4 On/Off Footwear (QC): 4 Additional Goals: 1-Demonstrate ADL Tasks, 2-Verbalize Understanding, 3- ImproveStrength/Omari 1=Demonstrate adherence to instructed precautions during ADL tasks. 2=Patient will verbalize/demonstrate understanding of assistive devices/modifications for ADL. 3=Patient will improve strength/tolerance for activity to enable patient to perform ADL's. OT Education/Plan Problem List/Assessment Assessment: Decreased Activ Tolerance, Decreased UE Strength, Impaired Self- Care Skills, Restricted Funct UE ROM Discharge Recommendations Plan/Recommendations: Continue POC Treatment Plan/Plan of Care Patient would benefit from OT for education, treatment and training to promote independence in ADL's, mobility, safety and/or upper extremity function for ADL's. Plan of Care: ADL Retraining, Functional Mobility, Group Exercise/Act as Ind, UE Funct Exercise/Act Treatment Duration: Apr 12, 2022 Frequency: At least 5 of 7 days/Wk (IRF) Estimated Hrs Per Day: 1.5 hours per day Agreement: Yes Rehab Potential: Guarded Time Start Time: 08:30 Stop Time: 10:00 DATE: Mar 22, 2022 Total Time Billed (hr/min): 90 Billed Treatment Time 1 visit-ADL 3 (45 min) EX 3 (45 min) JANAE GRIJALVA Mar 22, 2022 10:15
--- NOTE | 2022-03-22 11:30 | Physical Therapy Daily Note ---
PT Daily Note-Current Subjective Pt. c/o she is constipated. Agrees to Rx. needs to go in bthrm to try. No c/o hip pain or other Pain Location: No Pain Reported Section J - Health Conditions 1. Rarely or not at all 2. Occasionally 3. Frequently 4. Almost constantly 8. Unable to answer Pain Effect on Sleep: 1 Pain Interference with Therapy: 1 Pain Interference w/Day-to-Day: 1 Mental Status Patient Orientation: Normal For Age Transfers SCALE: Activities may be completed with or without assistive devices. 1-Qikttfgmkx-xpcybzx completes the activity by him/herself with no assistance from a helper. 5-Set-up or Clean-up Assistance-helper sets up or cleans up; patient completes a ctivity. [place] assists only prior to or following the activity. 4-Supervision or Touching Assistance-helper provides verbal cues and/or touching/steadying and/or contact guard assistance as patient completes activity. Assistance may be provided throughout the activity or intermittently. 3-Partial/Moderate Assistance-helper does LESS THAN HALF the effort. [place] lifts, holds or supports trunk or limbs, but provides less than half the effort. 2-Substantial/Maximal Assistance-helper does MORE THAN HALF the effort. [place] lifts or holds trunk or limbs and provides more than half the effort. 8-Nacpqvnds-jhihbi does ALL the effort. Patient does none of the effort to complete the activity. Or, the assistance of 2 or more helpers is required for the patient to complete the activity. If activity was not attempted, code reason: 7-Patient Refused. 9-Not Applicable-not attempted and the patient did not perform the activity before the current illness, exacerbation or injury. 10-Not Attempted due to Environmental Limitations-(lack of equipment, weather restraints, etc.). 88-Not Attempted due to Medical Conditions or Safety Concerns. Sit to Stand (QC): 6 Toilet Transfer (QC): 6 pt. uses lift recline chair for all sit to stand, states she does not sleep in bed at [place] Weight Bearing Full Weight Bearing Left Lower Extremity: Left Weight Bearing/Tolerated Gait Training Does the Patient Walk?: Yes Walk 10 feet (QC): 4 Walk 50 ft with 2 Turns(QC): 4 Walk 150 ft (QC): 4 Gait Persons Needed: 1 Gait Assistive Device: FWW slow, laborious gait pattern, advancing R before left then up on right toes to left left forward, insists on this pattern, no LOB, heavy wt bearing on FWW Exercises Supine Ex: Ankle pumps, Quad Set, Glut sets, Heel Slides, Short Arc Quads, Scooting (scooted self up to head of chair with chair in full recline position with instruction in how to do this), Straight leg raise, Hip abd/add Supine Reps: 15 (assisted left) Seated Therapy Exercises: Ankle pumps, Sit to stand, Long arc quads, Hip flexion, Hip abd/add Seated Reps: 12 Treatments sit to stand from lift chair and toilet, gait, toileting, therex Assessment Current Status: Good Progress PT Short Term Goals Short Term Goals Time Frame: Mar 20, 2022 Roll Left & Right: 3 (mod A) Sit to lyin (modA) Lying to sitting on side of be: 3 (modA) Sit to stand: 3 (modA) Chair/ntv-ic-dxhjp transfer: 3 (modA) Walk 10 feet: 3 (modA) PT Usp Goals Usp Goals PT Usp Goals Time Frame: Mar 27, 2022 Roll Left & Right (QC): 3 (Rusty) Sit to Lying (QC): 3 (Rusty) Lying-Sitting on Side/Bed(QC): 3 (Rusty) Sit to Stand (QC): 3 (Rusty) Chair/Gze-ko-Bgrcn Xfer(QC): 3 (Rusty) Toilet Transfer (QC): 3 (Rusty) Car Transfer (QC): 3 (Rusty) Does the Patient Walk: No and Walking Goal IS indicated Walk 10 feet (QC): 3 (Rusty) Walk 50ft with 2 Turns (QC): 88 Walk 150 ft (QC): 88 Walking 10ft on Uneven Surface: 3 (Rusty) 1 Step (curb) (QC): 88 4 Steps (QC): 88 12 Steps (QC): 88 Picking up an Object (QC): 4 (CGA using a engineering surveyor) Wheel 50 feet with 2 turns (QC: 4 (SBA) Wheel 150 feet: 4 (SBA) PT Plan Treatment/Plan Treatment Plan: Continue Plan of Care Treatment Plan: Bed Mobility, Education, Functional Activity Omari, Functional Strength, Group Therapy, Gait, Safety, Therapeutic Exercise, Transfers Treatment Duration: Mar 27, 2022 Frequency: At least 5 of 7 days/Wk (IRF) Estimated Hrs Per Day: 1.5 hours per day Patient and/or Family Agrees t: Yes Safety Risks/Education Patient Education: Gait Training, Transfer Techniques, Correct Positioning, Disease Process, Safety Issues Teaching Recipient: Patient Teaching Methods: Demonstration, Discussion Response to Teaching: Verbalize Understanding, Return Demonstration, Rein forcement Needed Time Time In: 1030 Time Out: 1130 DATE: Mar 22, 2022 Total Billed Treatment Time: 60 Total Billed Treatment 1,GT25m,FA15mm,EX20m CANDACE QUIJANO HONEY EXTRACTOR Mar 22, 2022 11:30
--- NOTE | 2022-03-22 13:50 | Physical Therapy Daily Note ---
PT Daily Note-Current Subjective Pt. agrees to Rx but states she is still working on and hoping to have a BM. Discussed increasing her fluids and walking to get her gut circulation going. Pain Numeric Pain Scale: 3 Location: Right Location Body Site: Knee Pain Description: Ache Section J - Health Conditions 1. Rarely or not at all 2. Occasionally 3. Frequently 4. Almost constantly 8. Unable to answer Pain Effect on Sleep: 1 Pain Interference with Therapy: 2 Pain Interference w/Day-to-Day: 1 Transfers SCALE: Activities may be completed with or without assistive devices. 1-Ruidwnvsjh-bcbxtdu completes the activity by him/herself with no assistance from a helper. 5-Set-up or Clean-up Assistance-helper sets up or cleans up; patient completes activity. [place] assists only prior to or following the activity. 4-Supervision or Touching Assistance-helper provides verbal cues and/or touc lucrecia/steadying and/or contact guard assistance as patient completes activity. Assistance may be provided throughout the activity or intermittently. 3-Partial/Moderate Assistance-helper does LESS THAN HALF the effort. [place] lifts, holds or supports trunk or limbs, but provides less than half the effort. 2-Substantial/Maximal Assistance-helper does MORE THAN HALF the effort. [place] lifts or holds trunk or limbs and provides more than half the effort. 7-Ztjcymmto-imypyx does ALL the effort. Patient does none of the effort to complete the activity. Or, the assistance of 2 or more helpers is required for the patient to complete the activity. If activity was not attempted, code reason: 7-Patient Refused. 9-Not Applicable-not attempted and the patient did not perform the activity before the current illness, exacerbation or injury. 10-Not Attempted due to Environmental Limitations-(lack of equipment, weather restraints, etc.). 88-Not Attempted due to Medical Conditions or Safety Concerns. sit to stands all SBA Weight Bearing Full Weight Bearing Left Lower Extremity: Left Weight Bearing/Tolerated Gait Training Does the Patient Walk?: Yes Gait Assistive Device: FWW 180 ft x 2 FWW SBA, same gait pattern as described in AM, pt. with increased heart rate and some diaphoresis from exercise Exercises Seated Therapy Exercises: Ankle pumps, Sit to stand, Long arc quads Seated Reps: 15 Treatments gait, seated ex Assessment Current Status: Good Progress PT Short Term Goals Short Term Goals Time Frame: Mar 20, 2022 Roll Left & Right: 3 (mod A) Sit to lyin (modA) Lying to sitting on side of be: 3 (modA) Sit to stand: 3 (modA) Chair/hby-kl-vtfky transfer: 3 (modA) Walk 10 feet: 3 (modA) PT Fdc Goals Fdc Goals PT Dry Roaster Goals Time Frame: Mar 27, 2022 Roll Left & Right (QC): 3 (Rusty) Sit to Lying (QC): 3 (Rusty) Lying-Sitting on Side/Bed(QC): 3 (Rusty) Sit to Stand (QC): 3 (Rusty) Chair/Dbm-qq-Khiil Xfer(QC): 3 (Rusty) Toilet Transfer (QC): 3 (Rusty) Car Transfer (QC): 3 (Rusty) Does the Patient Walk: No and Walking Goal IS indicated Walk 10 feet (QC): 3 (Rusty) Walk 50ft with 2 Turns (QC): 88 Walk 150 ft (QC): 88 Walking 10ft on Uneven Surface: 3 (Rusty) 1 Step (curb) (QC): 88 4 Steps (QC): 88 12 Steps (QC): 88 Picking up an Object (QC): 4 (CGA using a scouring machine tender) Wheel 50 feet with 2 turns (QC: 4 (SBA) Wheel 150 feet: 4 (SBA) PT Plan Treatment/Plan Treatment Plan: Continue Plan of Care Treatment Plan: Bed Mobility, Education, Functional Activity Omari, Functional Strength, Group Therapy, Gait, Safety, Therapeutic Exercise, Transfers Treatment Duration: Mar 27, 2022 Frequency: At least 5 of 7 days/Wk (IRF) Estimated Hrs Per Day: 1.5 hours per day Patient and/or Family Agrees t: Yes Safety Risks/Education Patient Education: Gait Training, Correct Positioning Time Time In: 1315 Time Out: 1345 DATE: Mar 22, 2022 Total Billed Treatment Time: 30 Total Billed Treatment 1,GT30m CANDACE QUIJANO THERMOMETER TESTER Mar 22, 2022 13:50
[2022-03-22] MEDS: LACTULOSE SYRUP 10GM/15ML (ENULOSE) 30ML UDC PO SCH (20:21)
[2022-03-22 20:30] VITALS: BP 162/74
[2022-03-22] MEDS: amLODIPine 5 MG (NORVASC) TAB PO SCH (21:03)
[2022-03-23] MEDS: LACTULOSE SYRUP 10GM/15ML (ENULOSE) 30ML UDC PO SCH ×6 (00:09→20:27)
[2022-03-23] MEDS: LEVOTHYROXINE 88 MCG (LEVOTHORID) TAB PO SCH (05:27)
[2022-03-23] MEDS: CYANOCOBALAMIN 1,000 MCG (VITAMIN B-12) TABLET PO SCH (06:27)
[2022-03-23] MEDS: KCL 20 MEQ TAB (K-DUR) PO SCH (06:27)
[2022-03-23] MEDS: MULTIVIT W/MINERALS TAB (THERAGRAN M) PO SCH (06:27)
--- NOTE | 2022-03-23 07:09 | PM&R Progress Note ---
Subjective HPI/CC On Admission Date Seen by Provider: Mar 23, 2022 Time Seen by Provider: 11:00 Subjective/Events-last exam 03/23/2022: Patient doing really well Bowels completely evacuated No more abdominal pain Will advance diet Walking around really well Weaned off oxygen 03/22/2022: Patient doing well except for constipation Lactulose being given every 4 hours Walking around pretty well No other concerns 03/21/2022: Abdominal pain reported KUB shows constipation Labs reviewed Dr Perkins consulted 03/20/2022: Doing well Pain controlled No falls Tolerating iron infusions 03/19/2022: Patient doing well Blood pressure good Bowels moving Pain controlled 03/18/2022: Improved status No pain reported unless she moves BP is usually elevated she reports as it is here now Labs stable 03/17/2022: Patient doing well No pain is reported when she is sleeping Blood pressure is elevated Monitoring closely 03/16/2022: Patient doing well Blood pressure really elevated today Added blood pressure medicine 03/15/2022: Patient doing well Took a shower Dulcolax suppository will be ordered for constipation continues Pain is controlled 03/14/2022: Patient settling in well Pain is pretty well controlled with pain med No major concerns Bowel regimen No falls Review of Systems General: Fatigue, Malaise Objective Exam Vital Signs Vital Signs Date Time Temp Pulse Resp B/P (MAP) Pulse Ox O2 Delivery O2 Flow Rate FiO2 03/23/22 09:45 Room Air 03/23/22 07:15 37.2 78 16 144/64 (90) 96 03/19/22 21:15 1.00 Capillary Refill : General Appearance: No Apparent Distress, WD/WN, Chronically ill, Obese HEENT: PERRL/EOMI, Normal ENT Inspection, Pharynx Normal Neck: Full Range of Motion, Normal Inspection, Non Tender, Supple, Carotid Bruit Respiratory: Chest Non Tender, Lungs Clear, Normal Breath Sounds, No Accessory Muscle Use, No Respiratory Distress Cardiovascular: Regular Rate, Rhythm, No Edema, No Gallop, No JVD, No Murmur, Normal Peripheral Pulses Gastrointestinal: Normal Bowel Sounds, No Organomegaly, No Pulsatile Mass, Non Tender, Soft Back: Normal Inspection, No CVA Tenderness, No Vertebral Tenderness Extremity: Normal Capillary Refill, Normal Inspection, Normal Range of Motion (Except left), Non Tender, No Calf Tenderness, No Pedal Edema Neurologic/Psychiatric: Alert, Oriented x3, No Motor/Sensory Deficits, Normal Mood/Affect, children counselor II-XII Norm as Tested, Abnormal Gait, Motor Weakness (Left leg) Skin: Normal Color, Warm/Dry Lymphatic: No Adenopathy Results/Procedures Lab Patient resulted labs reviewed. FIM Transfers Therapy Code Descriptions/Definitions Functional [place] Measure: 0=Not Assessed/NA 4=Minimal Assistance 1=Total Assistance 5=Supervision or Setup 2=Maximal Assistance 6=Modified [place] 3=Moderate Assistance 7=Complete IndependenceSCALE: Activities may be completed with or without assistive devices. 9-Yejooqojqh-lhzedux completes the activity by him/herself with no assistance from a helper. 5-Set-up or Clean-up Assistance-helper sets up or cleans up; patient completes activity. [place] assists only prior to or following the activity. 4-Supervision or Touching Assistance-helper provides verbal cues and/or touching/steadying and/or contact guard assistance as patient completes act ivity. Assistance may be provided throughout the activity or intermittently. 3-Partial/Moderate Assistance-helper does LESS THAN HALF the effort. [place] lifts, holds or supports trunk or limbs, but provides less than half the effort. 2-Substantial/Maximal Assistance-helper does MORE THAN HALF the effort. [place] lifts or holds trunk or limbs and provides more than half the effort. 1-Imrafgvbo-pcthlo does ALL the effort. Patient does none of the effort to complete the activity. Or, the assistance of 2 or more helpers is required for the patient to complete the activity. If activity was not attempted, code reason: 7-Patient Refused. 9-Not Applicable-not attempted and the patient did not perform the activity before the current illness, exacerbation or injury. 10-Not Attempted due to Environmental Limitations-(lack of equipment, weather restraints, etc.). 88-Not Attempted due to Medical Conditions or Safety Concerns. Roll Left to Right (QC): 2 Sit to Lying (QC): 1 Sit to Stand (QC): 6 Chair/Jii-nj-Pbwmd Xfer(QC): 4 Car Transfer (QC): 2 Gait Training Does the Patient Walk?: Yes Distance: 200' Walk 10 feet (QC): 4 Walk 50 ft with 2 Turns(QC): 4 Walk 150 ft (QC): 4 Walking 10ft/uneven surface-QC: 88 Gait Persons Needed: 1 Gait Assistive Device: FWW Wheelchair Training Does the Pt Use a Wheelchair?: No Distance: 150' Wheel 50 ft with 2 turns (QC): 4 Wheel 150 ft (QC): 3 Type of Wheelchair: Manual Stair Training 1 Step (curb) (QC): 88 4 Steps (QC): 88 12 Steps (QC): 88 Balance Picking up an Object (QC): 88 ADL-Treatment Eating (QC): 6 Oral Hygiene (QC): 6 Shower/Bathe Self (QC): 3 Upper Body Dressing (QC): 5 Lower Body Dressing (QC): 2 (assists with hiking pants over hips) On/Off Footwear (QC): 1 Toileting Hygiene (QC): 6 Toilet Transfer (QC): 4 Assessment/Plan Assessment and Plan Assess & Plan/Chief Complaint Assessment: Left femur fracture status post repair at [place] Severe chronic lower extremity edema Hypothyroidisim Anemia Hypoalbuminemia Advanced age Postop constipation now resolved for the second time Acute blood loss anemia iron def and b12 def supplementing both Postop constipation-resolved but recurred on 03/21/2022 prompting general surgery consultation now resolved on 03/23/2022 Plan: Pain control Bowel regimen PT and OT Supportive care 03/14/2022: Pain control Therapy protocol 03/15/2022: Check iron and B12 Monitor pain Bowel regimen 03/16/2022: Supportive care Continue current treatment Monitor blood pressure after addition of blood pressure meds 03/17/2022: Blood pressure management Pain control 03/18/2022: Iron infusion tomorrow morning along with B12 03/19/2022: Supportive care Iron infusion and B12 03/20/2022: Supportive care 03/21/2022: Monitor abdominal pain Supportive care 03/22/2022: Supportive care Monitor closely Aggressive bowel regimen 03/23/2022: Continue bowel regimen Advance diet (1) Intertrochanteric fracture of femur Status: Acute MOLLY MUIR DO Mar 23, 2022 07:09
[2022-03-23 07:15] VITALS: BP 144/64
[2022-03-23] MEDS: LOSARTAN 50 MG (COZAAR) TAB PO SCH (08:10)
[2022-03-23] MEDS: PANTOPRAZOLE 40 MG (PROTONIX) TAB PO SCH (08:10)
[2022-03-23] MEDS: DOCUSATE SODIUM 100 MG (COLACE) CAP PO SCH ×2 (08:10→20:25)
[2022-03-23] MEDS: VITAMIN D3 125 MCG (5,000 UNITS) CAPSULE PO SCH (08:11)
[2022-03-23] MEDS: ASPIRIN 81 MG CHEW (CHILDREN'S ASA) PO SCH ×2 (08:11→20:25)
[2022-03-23] MEDS: LACTOBACILLUS ACIDOPHILUS (PROBIOTIC) CAPSULE PO SCH ×3 (08:11→17:03)
[2022-03-23] MEDS: IRON SUCROSE 200 MG/10 ML (VENOFER) VIAL IV SCH (08:11)
[2022-03-23] MEDS: ARTIFICAL TEARS 0.4 ML UNIT DOSE (REFRESH PLUS) OU SCH ×2 (08:11→20:25)
[2022-03-23] MEDS: SENNA W/DOCUSATE (SENOKOT S) TABLET PO SCH ×2 (08:11→20:26)
[2022-03-23] MEDS: hydrALAZINE (APRESOLINE) 25 MG TAB PO SCH ×3 (08:11→20:26)
[2022-03-23] MEDS: polyethylene glycoL POWDER 17 GM (MIRALAX) PACK PO SCH ×3 (08:14→20:27)
[2022-03-23 12:05] VITALS: BP 156/69
--- NOTE | 2022-03-23 12:07 | Physical Therapy Daily Note ---
PT Daily Note-Current Subjective Pt sitting in recliner upon arrival. Pt agrees to PT but asks to use BR first as pt had stool softener last night and "it's still working". Pain Location: No Pain Reported Section J - Health Conditions 1. Rarely or not at all 2. Occasionally 3. Frequently 4. Almost constantly 8. Unable to answer Pain Effect on Sleep: 1 Pain Interference with Therapy: 2 Pain Interference w/Day-to-Day: 1 Mental Status Patient Orientation: Person, Place, Time, Situation Attachments: IV Transfers SCALE: Activities may be completed with or without assistive devices. 4-Xjzkuplctk-jlawemc completes the activity by him/herself with no assistance from a helper. 5-Set-up or Clean-up Assistance-helper sets up or cleans up; patient completes activity. [place] assists only prior to or following the activity. 4-Supervision or Touching Assistance-helper provides verbal cues and/or touching/steadying and/or contact guard assistance as patient completes activity. Assistance may be provided throughout the activity or intermittently. 3-Partial/Moderate Assistance-helper does LESS THAN HALF the effort. [place] lifts, holds or supports trunk or limbs, but provides less than half the effort. 2-Substantial/Maximal Assistance-helper does MORE THAN HALF the effort. [place] lifts or holds trunk or limbs and provides more than half the effort. 9-Dfxxvpuac-lptinr does ALL the effort. Patient does none of the effort to complete the activity. Or, the assistance of 2 or more helpers is required for the patient to complete the activity. If activity was not attempted, code reason: 7-Patient Refused. 9-Not Applicable-not attempted and the patient did not perform the activity before the current illness, exacerbation or injury. 10-Not Attempted due to Environmental Limitations-(lack of equipment, weather restraints, etc.). 88-Not Attempted due to Medical Conditions or Safety Concerns. Sit to Stand (QC): 5 (With) Weight Bearing Full Weight Bearing Left Lower Extremity: Left Weight Bearing/Tolerated Gait Training Does the Patient Walk?: Yes Distance: 15' x2 Walk 10 feet (QC): 5 Gait Assistive Device: FWW Treatments TF to standing and amb. to BR. After using BR, pt is assisted in donning/doffing new brief and clothes/hospital gown. Pt stands to complete pericare and wash hands. Pt returns to lift chair due to fatigue. Pt repositions and lowers chair as needed. All needs met, call light in hand. Assessment Current Status: Fair Progress Pt is fatigued as pt has had increased visits to BR due to stool softener. PT Short Term Goals Short Term Goals Time Frame: Mar 20, 2022 Roll Left & Right: 3 (mod A) Sit to lyin (modA) Lying to sitting on side of be: 3 (modA) Sit to stand: 3 (modA) Chair/szo-it-ohdek transfer: 3 (modA) Walk 10 feet: 3 (modA) PT Jail Goals Jail Goals PT Financial Supervisor Goals Time Frame: Mar 27, 2022 Roll Left & Right (QC): 3 (Rusty) Sit to Lying (QC): 3 (Rusty) Lying-Sitting on Side/Bed(QC): 3 (Rusty) Sit to Stand (QC): 3 (Rusty) Chair/Zyc-uc-Xlshm Xfer(QC): 3 (Rusty) Toilet Transfer (QC): 3 (Rusty) Car Transfer (QC): 3 (Rusty) Does the Patient Walk: No and Walking Goal IS indicated Walk 10 feet (QC): 3 (Rusty) Walk 50ft with 2 Turns (QC): 88 Walk 150 ft (QC): 88 Walking 10ft on Uneven Surface: 3 (Rusty) 1 Step (curb) (QC): 88 4 Steps (QC): 88 12 Steps (QC): 88 Picking up an Object (QC): 4 (CGA using a eligibility supervisor) Wheel 50 feet with 2 turns (QC: 4 (SBA) Wheel 150 feet: 4 (SBA) PT Plan Problem List Problem List: Activity Tolerance Treatment/Plan Treatment Plan: Continue Plan of Care Treatment Plan: Bed Mobility, Education, Functional Activity Omari, Functional Strength, Group Therapy, Gait, Safety, Therapeutic Exercise, Transfers Treatment Duration: Mar 27, 2022 Frequency: At least 5 of 7 days/Wk (IRF) Estimated Hrs Per Day: 1.5 hours per day Patient and/or Family Agrees t: Yes Time Time In: 1100 Time Out: 1125 DATE: Mar 23, 2022 Total Billed Treatment Time: 25 Total Billed Treatment 1, FA x2 (25m) RANJITH CARLISLE DRUG CLERK Mar 23, 2022 12:07
[2022-03-23] MEDS: FERROUS SULF 325 MG (IRON) TAB PO SCH (16:24)
[2022-03-23 19:45] VITALS: BP 137/65
[2022-03-23] MEDS: CATHETER FLUSH 10 ML SYR IVP SCH (20:26)
[2022-03-23] MEDS: HYDROcodone/APAP 7.5 MG/325 MG (LORTAB, LORCET PLUS) TABLET PO PRN (20:26)
[2022-03-23] MEDS: amLODIPine 5 MG (NORVASC) TAB PO SCH (20:26)
[2022-03-24] MEDS: LACTULOSE SYRUP 10GM/15ML (ENULOSE) 30ML UDC PO SCH ×5 (04:23→15:00)
[2022-03-24] MEDS: CATHETER FLUSH 10 ML SYR IVP SCH ×3 (05:58→21:04)
[2022-03-24] MEDS: LEVOTHYROXINE 88 MCG (LEVOTHORID) TAB PO SCH (05:58)
[2022-03-24] MEDS: MULTIVIT W/MINERALS TAB (THERAGRAN M) PO SCH (06:25)
[2022-03-24] MEDS: KCL 20 MEQ TAB (K-DUR) PO SCH (06:25)
[2022-03-24] MEDS: CYANOCOBALAMIN 1,000 MCG (VITAMIN B-12) TABLET PO SCH (06:25)
--- NOTE | 2022-03-24 06:56 | PM&R Progress Note ---
Subjective HPI/CC On Admission Date Seen by Provider: Mar 24, 2022 Time Seen by Provider: 15:00 Subjective/Events-last exam 03/24/2022: Patient having a great day Pain is controlled Ambulating around Bowels continue to move 03/23/2022: Patient doing really well Bowels completely evacuated No more abdominal pain Will advance diet Walking around really well Weaned off oxygen 03/22/2022: Patient doing well except for constipation Lactulose being given every 4 hours Walking around pretty well No other concerns 03/21/2022: Abdominal pain reported KUB shows constipation Labs reviewed Dr Perkins consulted 03/20/2022: Doing well Pain controlled No falls Tolerating iron infusions 03/19/2022: Patient doing well Blood pressure good Bowels moving Pain controlled 03/18/2022: Improved status No pain reported unless she moves BP is usually elevated she reports as it is here now Labs stable 03/17/2022: Patient doing well No pain is reported when she is sleeping Blood pressure is elevated Monitoring closely 03/16/2022: Patient doing well Blood pressure really elevated today Added blood pressure medicine 03/15/2022: Patient doing well Took a shower Dulcolax suppository will be ordered for constipation continues Pain is controlled 03/14/2022: Patient settling in well Pain is pretty well controlled with pain med No major concerns Bowel regimen No falls Review of Systems General: Fatigue, Malaise Musculoskeletal: leg pain Objective Exam Vital Signs Vital Signs Date Time Temp Pulse Resp B/P (MAP) Pulse Ox O2 Delivery O2 Flow Rate FiO2 03/24/22 13:39 85 123/59 (80) 03/24/22 09:22 Room Air 03/24/22 07:05 36.9 20 94 03/19/22 21:15 1.00 Capillary Refill : General Appearance: No Apparent Distress, WD/WN, Chronically ill, Obese HEENT: PERRL/EOMI, Normal ENT Inspection, Pharynx Normal Neck: Full Range of Motion, Normal Inspection, Non Tender, Supple, Carotid Bruit Respiratory: Chest Non Tender, Lungs Clear, Normal Breath Sounds, No Accessory Muscle Use, No Respiratory Distress Cardiovascular: Regular Rate, Rhythm, No Edema, No Gallop, No JVD, No Murmur, Normal Peripheral Pulses Gastrointestinal: Normal Bowel Sounds, No Organomegaly, No Pulsatile Mass, Non Tender, Soft Back: Normal Inspection, No CVA Tenderness, No Vertebral Tenderness Extremity: Normal Capillary Refill, Normal Inspection, Normal Range of Motion (Except left), Non Tender, No Calf Tenderness, No Pedal Edema Neurologic/Psychiatric: Alert, Oriented x3, No Motor/Sensory Deficits, Normal Mood/Affect, community arts worker II-XII Norm as Tested, Abnormal Gait, Motor Weakness (Left leg) Skin: Normal Color, Warm/Dry Lymphatic: No Adenopathy Results/Procedures Lab Patient resulted labs reviewed. FIM Transfers Therapy Code Descriptions/Definitions Functional [place] Measure: 0=Not Assessed/NA 4=Minimal Assistance 1=Total Assistance 5=Supervision or Setup 2=Maximal Assistance 6=Modified [place] 3=Moderate Assistance 7=Complete IndependenceSCALE: Activities may be completed with or without assistive devices. 8-Pphbzilfix-lucwygs completes the activity by him/herself with no assistance from a helper. 5-Set-up or Clean-up Assistance-helper sets up or cleans up; patient completes activity. [place] assists only prior to or following the activity. 4-Supervision or Touching Assistance-helper provides verbal cues and/or touching/steadying and/or contact guard assistance as patient completes activity. Assistance may be provided throughout the activity or intermittently. 3-Partial/Moderate Assistance-helper does LESS THAN HALF the effort. [place] lifts, holds or supports trunk or limbs, but provides less than half the effort. 2-Substantial/Maximal Assistance-helper does MORE THAN HALF the effort. [place] lifts or holds trunk or limbs and provides more than half the effort. 5-Jirtciors-lifarb does ALL the effort. Patient does none of the effort to comp lete the activity. Or, the assistance of 2 or more helpers is required for the patient to complete the activity. If activity was not attempted, code reason: 7-Patient Refused. 9-Not Applicable-not attempted and the patient did not perform the activity before the current illness, exacerbation or injury. 10-Not Attempted due to Environmental Limitations-(lack of equipment, weather restraints, etc.). 88-Not Attempted due to Medical Conditions or Safety Concerns. Roll Left to Right (QC): 2 Sit to Lying (QC): 1 Sit to Stand (QC): 5 (With) Chair/Fqv-bl-Fdtvq Xfer(QC): 4 Car Transfer (QC): 2 Gait Training Does the Patient Walk?: Yes Distance: 15' x2 Walk 10 feet (QC): 5 Walk 50 ft with 2 Turns(QC): 4 Walk 150 ft (QC): 4 Walking 10ft/uneven surface-QC: 88 Gait Persons Needed: 1 Gait Assistive Device: FWW Wheelchair Training Does the Pt Use a Wheelchair?: No Distance: 150' Wheel 50 ft with 2 turns (QC): 4 Wheel 150 ft (QC): 3 Type of Wheelchair: Manual Stair Training 1 Step (curb) (QC): 88 4 Steps (QC): 88 12 Steps (QC): 88 Balance Picking up an Object (QC): 88 ADL-Treatment Eating (QC): 6 Oral Hygiene (QC): 6 Shower/Bathe Self (QC): 3 Upper Body Dressing (QC): 5 Lower Body Dressing (QC): 2 (assists with hiking pants over hips) On/Off Footwear (QC): 1 Toileting Hygiene (QC): 6 Toilet Transfer (QC): 4 Assessment/Plan Assessment and Plan Assess & Plan/Chief Complaint Assessment: Left femur fracture status post repair at [place] Severe chronic lower extremity edema Hypothyroidisim Anemia Hypoalbuminemia Advanced age Postop constipation now resolved for the second time Acute blood loss anemia iron def and b12 def supplementing both Postop constipation-resolved but recurred on 03/21/2022 prompting general surgery consultation now resolved on 03/23/2022 Plan: Pain control Bowel regimen PT and OT Supportive care 03/14/2022: Pain control Therapy protocol 03/15/2022: Check iron and B12 Monitor pain Bowel regimen 03/16/2022: Supportive care Continue current treatment Monitor blood pressure after addition of blood pressure meds 03/17/2022: Blood pressure management Pain control 03/18/2022: Iron infusion tomorrow morning along with B12 03/19/2022: Supportive care Iron infusion and B12 03/20/2022: Supportive care 03/21/2022: Monitor abdominal pain Supportive care 03/22/2022: Supportive care Monitor closely Aggressive bowel regimen 03/23/2022: Continue bowel regimen Advance diet 03/24/2022: Supportive care (1) Intertrochanteric fracture of femur Status: Acute MOLLY MUIR DO Mar 24, 2022 06:56
[2022-03-24 07:05] VITALS: BP 161/85
[2022-03-24] MEDS: VITAMIN D3 125 MCG (5,000 UNITS) CAPSULE PO SCH (08:43)
[2022-03-24] MEDS: ASPIRIN 81 MG CHEW (CHILDREN'S ASA) PO SCH ×2 (08:43→21:04)
[2022-03-24] MEDS: LOSARTAN 50 MG (COZAAR) TAB PO SCH (08:43)
[2022-03-24] MEDS: PANTOPRAZOLE 40 MG (PROTONIX) TAB PO SCH (08:43)
[2022-03-24] MEDS: hydrALAZINE (APRESOLINE) 25 MG TAB PO SCH ×3 (08:43→21:04)
[2022-03-24] MEDS: ARTIFICAL TEARS 0.4 ML UNIT DOSE (REFRESH PLUS) OU SCH ×2 (08:44→21:03)
[2022-03-24] MEDS: LACTOBACILLUS ACIDOPHILUS (PROBIOTIC) CAPSULE PO SCH ×3 (08:44→17:01)
[2022-03-24] MEDS: SENNA W/DOCUSATE (SENOKOT S) TABLET PO SCH ×2 (08:46→21:04)
[2022-03-24] MEDS: polyethylene glycoL POWDER 17 GM (MIRALAX) PACK PO SCH ×3 (08:46→21:04)
[2022-03-24] MEDS: DOCUSATE SODIUM 100 MG (COLACE) CAP PO SCH ×2 (08:46→21:04)
[2022-03-24 13:39] VITALS: BP 123/59
[2022-03-24 20:36] VITALS: BP 129/59
[2022-03-24] MEDS: amLODIPine 5 MG (NORVASC) TAB PO SCH (21:04)
[2022-03-24] MEDS: HYDROcodone/APAP 7.5 MG/325 MG (LORTAB, LORCET PLUS) TABLET PO PRN (21:04)
[2022-03-25] MEDS: LEVOTHYROXINE 88 MCG (LEVOTHORID) TAB PO SCH (05:32)
[2022-03-25] MEDS: CATHETER FLUSH 10 ML SYR IVP SCH ×3 (05:32→21:09)
--- NOTE | 2022-03-25 05:39 | PM&R Progress Note ---
Subjective HPI/CC On Admission Date Seen by Provider: Mar 25, 2022 Time Seen by Provider: 08:30 Subjective/Events-last exam 03/25/2021: Pt is doing well Wants to go home soon Pain is controlled Bowels are moving 03/24/2022: Patient having a great day Pain is controlled Ambulating around Bowels continue to move 03/23/2022: Patient doing really well Bowels completely evacuated No more abdominal pain Will advance diet Walking around really well Weaned off oxygen 03/22/2022: Patient doing well except for constipation Lactulose being given every 4 hours Walking around pretty well No other concerns 03/21/2022: Abdominal pain reported KUB shows constipation Labs reviewed Dr Perkins consulted 03/20/2022: Doing well Pain controlled No falls Tolerating iron infusions 03/19/2022: Patient doing well Blood pressure good Bowels moving Pain controlled 03/18/2022: Improved status No pain reported unless she moves BP is usually elevated she reports as it is here now Labs stable 03/17/2022: Patient doing well No pain is reported when she is sleeping Blood pressure is elevated Monitoring closely 03/16/2022: Patient doing well Blood pressure really elevated today Added blood pressure medicine 03/15/2022: Patient doing well Took a shower Dulcolax suppository will be ordered for constipation continues Pain is controlled 03/14/2022: Patient settling in well Pain is pretty well controlled with pain med No major concerns Bowel regimen No falls Review of Systems General: Fatigue, Malaise Musculoskeletal: leg pain Objective Exam Vital Signs Vital Signs Date Time Temp Pulse Resp B/P (MAP) Pulse Ox O2 Delivery O2 Flow Rate FiO2 03/25/22 14:23 89 117/60 (79) 03/25/22 08:48 Room Air 03/25/22 07:30 36.7 18 95 03/25/22 06:58 1.00 Capillary Refill : General Appearance: No Apparent Distress, WD/WN, Chronically ill, Obese HEENT: PERRL/EOMI, Normal ENT Inspection, Pharynx Normal Neck: Full Range of Motion, Normal Inspection, Non Tender, Supple, Carotid Bruit Respiratory: Chest Non Tender, Lungs Clear, Normal Breath Sounds, No Accessory Muscle Use, No Respiratory Distress Cardiovascular: Regular Rate, Rhythm, No Edema, No Gallop, No JVD, No Murmur, Normal Peripheral Pulses Gastrointestinal: Normal Bowel Sounds, No Organomegaly, No Pulsatile Mass, Non Tender, Soft Back: Normal Inspection, No CVA Tenderness, No Vertebral Tenderness Extremity: Normal Capillary Refill, Normal Inspection, Normal Range of Motion (Except left), Non Tender, No Calf Tenderness, No Pedal Edema Neurologic/Psychiatric: Alert, Oriented x3, No Motor/Sensory Deficits, Normal Mood/Affect, sales process 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 FIM Transfers Therapy Code Descriptions/Definitions Functional [place] Measure: 0=Not Assessed/NA 4=Minimal Assistance 1=Total Assistance 5=Supervision or Setup 2=Maximal Assistance 6=Modified [place] 3=Moderate Assistance 7=Complete IndependenceSCALE: Activities may be completed with or without assistive devices. 3-Hvgqnbrysh-arxrbfs completes the activity by him/herself with no assistance from a helper. 5-Set-up or Clean-up Assistance-helper sets up or cleans up; patient completes activity. [place] assists only prior to or following the activity. 4-Supervision or Touching Assistance-helper provides verbal cues and/or touching/steadying and/or contact guard assistance as patient completes activity. Assistance may be provided throughout the activity or intermittently. 3-Partial/Moderate Assistance-helper does LESS THAN HALF the effort. [place] lifts, holds or supports trunk or limbs, but provides less than half the effort. 2-Substantial/Maximal Assistance-helper does MORE THAN HALF the effort. [place] lifts or holds trunk or limbs and provides more than half the effort. 2-Xfhkcszcn-dorohh does ALL the effort. Patient does none of the effort to complete the activity. Or, the assistance of 2 or more helpers is required for the patient to complete the activity. If activity was not attempted, code reason: 7-Patient Refused. 9-Not Applicable-not attempted and the patient did not perform the activity before the current illness, exacerbation or injury. 10-Not Attempted due to Environmental Limitations-(lack of equipment, weather re straints, etc.). 88-Not Attempted due to Medical Conditions or Safety Concerns. Roll Left to Right (QC): 2 Sit to Lying (QC): 1 Sit to Stand (QC): 5 (With) Chair/Tcy-ug-Drpog Xfer(QC): 4 Car Transfer (QC): 2 Gait Training Does the Patient Walk?: Yes Distance: 15' x2 Walk 10 feet (QC): 5 Walk 50 ft with 2 Turns(QC): 4 Walk 150 ft (QC): 4 Walking 10ft/uneven surface-QC: 88 Gait Persons Needed: 1 Gait Assistive Device: FWW Wheelchair Training Does the Pt Use a Wheelchair?: No Distance: 150' Wheel 50 ft with 2 turns (QC): 4 Wheel 150 ft (QC): 3 Type of Wheelchair: Manual Stair Training 1 Step (curb) (QC): 88 4 Steps (QC): 88 12 Steps (QC): 88 Balance Picking up an Object (QC): 88 ADL-Treatment Eating (QC): 6 Oral Hygiene (QC): 6 Shower/Bathe Self (QC): 3 Upper Body Dressing (QC): 5 Lower Body Dressing (QC): 2 (assists with hiking pants over hips) On/Off Footwear (QC): 1 Toileting Hygiene (QC): 6 Toilet Transfer (QC): 4 Assessment/Plan Assessment and Plan Assess & Plan/Chief Complaint Assessment: Left femur fracture status post repair at [place] Severe chronic lower extremity edema Hypothyroidisim Anemia Hypoalbuminemia Advanced age Postop constipation now resolved for the second time Acute blood loss anemia iron def and b12 def supplementing both Postop constipation-resolved but recurred on 03/21/2022 prompting general surgery consultation now resolved on 03/23/2022 Plan: Pain control Bowel regimen PT and OT Supportive care 03/14/2022: Pain control Therapy protocol 03/15/2022: Check iron and B12 Monitor pain Bowel regimen 03/16/2022: Supportive care Continue current treatment Monitor blood pressure after addition of blood pressure meds 03/17/2022: Blood pressure management Pain control 03/18/2022: Iron infusion tomorrow morning along with B12 03/19/2022: Supportive care Iron infusion and B12 03/20/2022: Supportive care 03/21/2022: Monitor abdominal pain Supportive care 03/22/2022: Supportive care Monitor closely Aggressive bowel regimen 03/23/2022: Continue bowel regimen Advance diet 03/24/2022: Supportive care 03/25/2021: LENA planning (1) Intertrochanteric fracture of femur Status: Acute MOLLY MUIR DO Mar 25, 2022 05:39
[2022-03-25 05:55] LABS: BASOPHILS # (AUTO) 0.1 10^3/uL (0.0-0.1); BASOPHILS % (AUTO) 1 % (0-10); EOSINOPHILS # (AUTO) 0.4 10^3/uL (0.0-0.3); EOSINOPHILS % (AUTO) 4 % (0-10); HEMATOCRIT 29 % (35-52); HEMOGLOBIN 9.4 g/dL (11.5-16.0); LYMPHOCYTES # (AUTO) 2.1 10^3/uL (1.0-4.0); LYMPHOCYTES % (AUTO) 24 % (12-44); MEAN CORPUSCULAR HEMOGLOBIN 31 pg (25-34); MEAN CORPUSCULAR HGB CONC 32 g/dL (32-36); MEAN CORPUSCULAR VOLUME 97 fL (80-99); MONOCYTES # (AUTO) 1.1 10^3/uL (0.0-1.0); MONOCYTES % (AUTO) 12 % (0-12); NEUTROPHILS # (AUTO) 5.1 10^3/uL (1.8-7.8); NEUTROPHILS % (AUTO) 59 % (42-75); PLATELET COUNT 458 10^3/uL (130-400); WHITE BLOOD COUNT 8.7 10^3/uL (4.3-11.0)
[2022-03-25] MEDS: CYANOCOBALAMIN 1,000 MCG (VITAMIN B-12) TABLET PO SCH (06:07)
[2022-03-25] MEDS: KCL 20 MEQ TAB (K-DUR) PO SCH (06:07)
[2022-03-25] MEDS: MULTIVIT W/MINERALS TAB (THERAGRAN M) PO SCH (06:07)
[2022-03-25 06:17] LABS: ALBUMIN 3.3 GM/DL (3.2-4.5); BILIRUBIN,TOTAL 0.5 MG/DL (0.1-1.0); CALCIUM 8.9 MG/DL (8.5-10.1); CREATININE SERUM 1.24 MG/DL (0.60-1.30); POTASSIUM 3.9 MMOL/L (3.6-5.0); TOTAL PROTEIN 6.3 GM/DL (6.4-8.2)
[2022-03-25 07:30] VITALS: BP 167/75
[2022-03-25 08:06] VITALS: BP 145/65
[2022-03-25] MEDS: LOSARTAN 50 MG (COZAAR) TAB PO SCH (08:37)
[2022-03-25] MEDS: LACTOBACILLUS ACIDOPHILUS (PROBIOTIC) CAPSULE PO SCH ×3 (08:37→18:43)
[2022-03-25] MEDS: PANTOPRAZOLE 40 MG (PROTONIX) TAB PO SCH (08:37)
[2022-03-25] MEDS: hydrALAZINE (APRESOLINE) 25 MG TAB PO SCH ×3 (08:38→21:09)
[2022-03-25] MEDS: HYDROcodone/APAP 7.5 MG/325 MG (LORTAB, LORCET PLUS) TABLET PO PRN ×2 (08:38→21:26)
[2022-03-25] MEDS: DOCUSATE SODIUM 100 MG (COLACE) CAP PO SCH ×2 (08:38→21:09)
[2022-03-25] MEDS: ASPIRIN 81 MG CHEW (CHILDREN'S ASA) PO SCH ×2 (08:38→21:09)
[2022-03-25] MEDS: SENNA W/DOCUSATE (SENOKOT S) TABLET PO SCH ×2 (08:38→21:09)
[2022-03-25] MEDS: VITAMIN D3 125 MCG (5,000 UNITS) CAPSULE PO SCH (08:38)
[2022-03-25] MEDS: IRON SUCROSE 200 MG/10 ML (VENOFER) VIAL IV SCH (08:39)
[2022-03-25] MEDS: polyethylene glycoL POWDER 17 GM (MIRALAX) PACK PO SCH ×3 (08:39→21:09)
[2022-03-25] MEDS: ARTIFICAL TEARS 0.4 ML UNIT DOSE (REFRESH PLUS) OU SCH ×2 (08:39→21:09)
--- NOTE | 2022-03-25 09:57 | Occupational Ther Daily Note ---
OT Current Status-Daily Note Subjective Pt alert, sitting in recliner. No c/o pain. Pt agrees to therapy. Pt states that she is doing better. Mental Status/Objective Patient Orientation: Person, Place, Time, Situation Attachments: IV ADL-Treatment Pt required encouragement to complete ADL tasks by self. Independent with toileting. Set up for lower body dressing using AE. Set up for upper body dressing. Dependent with footwear due to wearing compression stockings. Independent with oral care standing at sink. Independent with eating. After therapy, pt sitting in recliner with call light/phone in reach. All needs met in room. Therapy Code Descriptions/Definitions Functional [place] Measure: 0=Not Assessed/NA 4=Minimal Assistance 1=Total Assistance 5=Supervision or Setup 2=Maximal Assistance 6=Modified [place] 3=Moderate Assistance 7=Complete IndependenceSCALE: Activities may be completed with or without assistive devices. 6-Mtspjtssre-bkymxgg completes the activity by him/herself with no assistance from a helper. 5-Set-up or Clean-up Assistance-helper sets up or cleans up; patient completes activity. [place] assists only prior to or following the activity. 4-Supervision or Touching Assistance-helper provides verbal cues and/or touching/steadying and/or contact guard assistance as patient completes activity. Assistance may be provided throughout the activity or intermittently. 3-Partial/Moderate Assistance-helper does LESS THAN HALF the effort. [place] lifts, holds or supports trunk or limbs, but provides less than half the effort. 2-Substantial/Maximal Assistance-helper does MORE THAN HALF the effort. [place] lifts or holds trunk or limbs and provides more than half the effort. 3-Vvwsohqpa-cgxrcy does ALL the effort. Patient does none of the effort to complete the activity. Or, the assistance of 2 or more helpers is required for the patient to complete the activity. If activity was not attempted, code reason: 7-Patient Refused. 9-Not Applicable-not attempted and the patient did not perform the activity before the current illness, exacerbation or injury. 10-Not Attempted due to Environmental Limitations-(lack of equipment, weather restraints, etc.). 88-Not Attempted due to Medical Conditions or Safety Concerns. Eating (QC): 6 Oral Hygiene (QC): 6 Upper Body Dressing (QC): 5 Lower Body Dressing (QC): 5 On/Off Footwear: 1 Toileting Hygiene (QC): 6 Toilet Transfer (QC): 6 OT Short Term Goals Short Term Goals Time Frame: Mar 29, 2022 Toileting hygiene: 3 Shower/bathe self: 3 Lower body dressin Putting on/taking off footwear: 3 OT Geological Sample Tester Goals Halfway Goals Time Frame: Apr 12, 2022 Acute change in mental status: 0 Inattention: 0 Disorganized thinkin Altered level of consciousness: 0 Eating (QC): 6 Oral Hygiene (QC): 6 Toileting Hygiene (QC): 4 Shower/Bathe Self (QC): 4 Upper Body Dressing (QC): 5 Lower Body Dressing (QC): 4 On/Off Footwear (QC): 4 Additional Goals: 1-Demonstrate ADL Tasks, 2-Verbalize Understanding, 3-ImproveStrength/Omari 1=Demonstrate adherence to instructed precautions during ADL tasks. 2=Patient will verbalize/demonstrate understanding of assistive devices/modifications for ADL. 3=Patient will improve strength/tolerance for activity to enable patient to perform ADL's. OT Education/Plan Problem List/Assessment Assessment: Decreased Activ Tolerance, Impaired Self-Care Skills Discharge Recommendations Plan/Recommendations: Continue POC Treatment Plan/Plan of Care Patient would benefit from OT for education, treatment and training to promote independence in ADL's, mobility, safety and/or upper extremity function for ADL's. Plan of Care: ADL Retraining, Functional Mobility, Group Exercise/Act as Ind, UE Funct Exercise/Act Treatment Duration: Apr 12, 2022 Frequency: At least 5 of 7 days/Wk (IRF) Estimated Hrs Per Day: 1.5 hours per day Agreement: Yes Rehab Potential: Guarded Time Start Time: 09:00 Stop Time: 10:00 DATE: Mar 25, 2022 Total Time Billed (hr/min): 60 Billed Treatment Time 1 visit-ADL 4 (60 min) JANAE GRIJALVA Mar 25, 2022 09:57
--- NOTE | 2022-03-25 12:05 | Physical Therapy Daily Note ---
PT Daily Note-Current Subjective Pt sitting in recliner upon arrival. Pt agrees to PT. Pain Location: No Pain Reported Section J - Health Conditions 1. Rarely or not at all 2. Occasionally 3. Frequently 4. Almost constantly 8. Unable to answer Pain Effect on Sleep: 1 Pain Interference with Therapy: 2 Pain Interference w/Day-to-Day: 1 Mental Status Patient Orientation: Person, Place, Time, Situation Transfers SCALE: Activities may be completed with or without assistive devices. 6-Vnknvotsvg-xznjfgt completes the activity by him/herself with no assistance from a helper. 5-Set-up or Clean-up Assistance-helper sets up or cleans up; patient completes activity. [place] assists only prior to or following the activity. 4-Supervision or Touching Assistance-helper provides verbal cues and/or touching/steadying and/or contact guard assistance as patient completes activity. Assistance may be provided throughout the activity or intermittently. 3-Partial/Moderate Assistance-helper does LESS THAN HALF the effort. [place] lifts, holds or supports trunk or limbs, but provides less than half the effort. 2-Substantial/Maximal Assistance-helper does MORE THAN HALF the effort. [place] lifts or holds trunk or limbs and provides more than half the effort. 4-Rlhlxdanj-mavhxw does ALL the effort. Patient does none of the effort to complete the activity. Or, the assistance of 2 or more helpers is required for the patient to complete the activity. If activity was not attempted, code reason: 7-Patient Refused. 9-Not Applicable-not attempted and the patient did not perform the activity before the current illness, exacerbation or injury. 10-Not Attempted due to Environmental Limitations-(lack of equipment, weather restraints, etc.). 88-Not Attempted due to Medical Conditions or Safety Concerns. Sit to Stand (QC): 5 Toilet Transfer (QC): 5 Weight Bearing Full Weight Bearing Left Lower Extremity: Left Weight Bearing/Tolerated Gait Training Does the Patient Walk?: Yes Distance: 150' x2 Walk 10 feet (QC): 5 Walk 50 ft with 2 Turns(QC): 5 Walk 150 ft (QC): 5 Gait Assistive Device: FWW Wheelchair Training Does the Pt Use a Wheelchair?: No Exercises Seated Therapy Exercises: Ankle pumps, Long arc quads, Hip flexion, Hip abd/add, Glut set Seated Reps: 15 (2 sets 15 reps) Treatments TF to standing, amb to BR. Pt amb. in hallway, taking RB as needed. Pt returns to room to rest in recliner then completes Seated Ex. Pt repositions to comfort, resting w/all needs met, call light in hand. Assessment Current Status: Good Progress Pt shirley. tx well, taking RB as needed. PT Short Term Goals Short Term Goals Time Frame: Mar 20, 2022 Roll Left & Right: 3 (mod A) Sit to lyin (modA) Lying to sitting on side of be: 3 (modA) Sit to stand: 3 (modA) Chair/elf-mb-opaem transfer: 3 (modA) Walk 10 feet: 3 (modA) PT Physical Medicine Teacher Goals Nursing Home Goals PT Physical Medicine Teacher Goals Time Frame: Mar 27, 2022 Roll Left & Right (QC): 3 (Rusty) Sit to Lying (QC): 3 (Rusty) Lying-Sitting on Side/Bed(QC): 3 (Rusty) Sit to Stand (QC): 3 (Rusty) Chair/Vkb-qu-Olzlf Xfer(QC): 3 (Rusty) Toilet Transfer (QC): 3 (Rusty) Car Transfer (QC): 3 (Rusty) Does the Patient Walk: No and Walking Goal IS indicated Walk 10 feet (QC): 3 (Rusty) Walk 50ft with 2 Turns (QC): 88 Walk 150 ft (QC): 88 Walking 10ft on Uneven Surface: 3 (Rusty) 1 Step (curb) (QC): 88 4 Steps (QC): 88 12 Steps (QC): 88 Picking up an Object (QC): 4 (CGA using a teacher assistant) Wheel 50 feet with 2 turns (QC: 4 (SBA) Wheel 150 feet: 4 (SBA) PT Plan Treatment/Plan Treatment Plan: Continue Plan of Care Treatment Plan: Bed Mobility, Education, Functional Activity Omari, Functional Strength, Group Therapy, Gait, Safety, Therapeutic Exercise, Transfers Treatment Duration: Mar 27, 2022 Frequency: At least 5 of 7 days/Wk (IRF) Estimated Hrs Per Day: 1.5 hours per day Patient and/or Family Agrees t: Yes Time Time In: 1100 Time Out: 1200 DATE: Mar 25, 2022 Total Billed Treatment Time: 60 Total Billed Treatment 1, EX x2 (30m) & FA x2 (30m) RANJITH CARLISLE LEATHER SPRAYER Mar 25, 2022 12:05
--- NOTE | 2022-03-25 13:41 | Occupational Ther Daily Note ---
OT Current Status-Daily Note Subjective Pt alert, sitting in recliner. Pt agrees to therapy. No c/o pain. Mental Status/Objective Patient Orientation: Person, Place, Time, Situation Attachments: IV ADL-Treatment Therapy Code Descriptions/Definitions Functional [place] Measure: 0=Not Assessed/NA 4=Minimal Assistance 1=Total Assistance 5=Supervision or Setup 2=Maximal Assistance 6=Modified [place] 3=Moderate Assistance 7=Complete IndependenceSCALE: Activities may be completed with or without assistive devices. 3-[place]-slo[place] completes the activity by him/herself with no assistance from a helper. 5-Set-up or Clean-up Assistance-helper sets up or cleans up; patient completes activity. [place] assists only prior to or following the activity. 4-Supervision or Touching Assistance-helper provides verbal cues and/or touching/steadying and/or contact guard assistance as patient completes activity. Assistance may be provided throughout the activity or intermittently. 3-Partial/Moderate Assistance-helper does LESS THAN HALF the effort. [place] li fts, holds or supports trunk or limbs, but provides less than half the effort. 2-Substantial/Maximal Assistance-helper does MORE THAN HALF the effort. [place] lifts or holds trunk or limbs and provides more than half the effort. 5-Zbyabobxr-prtyqe does ALL the effort. Patient does none of the effort to complete the activity. Or, the assistance of 2 or more helpers is required for the patient to complete the activity. If activity was not attempted, code reason: 7-Patient Refused. 9-Not Applicable-not attempted and the patient did not perform the activity before the current illness, exacerbation or injury. 10-Not Attempted due to Environmental Limitations-(lack of equipment, weather restraints, etc.). 88-Not Attempted due to Medical Conditions or Safety Concerns. Toileting Hygiene (QC): 6 Toilet Transfer (QC): 6 Other Treatment Ambulated using FWW to gather clothing from closet and begin to gather items for discharge. Pt independent with mobility in room. Pt then ambulated using FWW around [facility] to increase activity tolerance. After session, pt left in care of nrsg. All needs met. OT Short Term Goals Short Term Goals Time Frame: Mar 29, 2022 Toileting hygiene: 3 Shower/bathe self: 3 Lower body dressin Putting on/taking off footwear: 3 OT Foamite Mixer Goals Intermediate Goals Time Frame: Apr 12, 2022 Acute change in mental status: 0 Inattention: 0 Disorganized thinkin Altered level of consciousness: 0 Eating (QC): 6 Oral Hygiene (QC): 6 Toileting Hygiene (QC): 4 Shower/Bathe Self (QC): 4 Upper Body Dressing (QC): 5 Lower Body Dressing (QC): 4 On/Off Footwear (QC): 4 Additional Goals: 1-Demonstrate ADL Tasks, 2-Verbalize Understanding, 3- ImproveStrength/Omari 1=Demonstrate adherence to instructed precautions during ADL tasks. 2=Patient will verbalize/demonstrate understanding of assistive devices/modifications for ADL. 3=Patient will improve strength/tolerance for activity to enable patient to perform ADL's. OT Education/Plan Problem List/Assessment Assessment: Decreased Activ Tolerance, Decreased UE Strength Discharge Recommendations Plan/Recommendations: Continue POC Treatment Plan/Plan of Care Patient would benefit from OT for education, treatment and training to promote independence in ADL's, mobility, safety and/or upper extremity function for ADL's. Plan of Care: ADL Retraining, Functional Mobility, Group Exercise/Act as Ind, UE Funct Exercise/Act Treatment Duration: Apr 12, 2022 Frequency: At least 5 of 7 days/Wk (IRF) Estimated Hrs Per Day: 1.5 hours per day Agreement: Yes Rehab Potential: Guarded Time Start Time: 13:00 Stop Time: 13:30 DATE: Mar 25, 2022 Total Time Billed (hr/min): 30 Billed Treatment Time 1 visit-FA 2 (30 min) JANAE GRIJALVA Mar 25, 2022 13:41
[2022-03-25 14:23] VITALS: BP 117/60
--- NOTE | 2022-03-25 15:56 | Physical Therapy Daily Note ---
PT Daily Note-Current Subjective Pt sitting in chair in [facility] after just finishing w/NIETO. Pt agrees to PT. Pain Location: No Pain Reported Section J - Health Conditions 1. Rarely or not at all 2. Occasionally 3. Frequently 4. Almost constantly 8. Unable to answer Pain Effect on Sleep: 1 Pain Interference with Therapy: 2 Pain Interference w/Day-to-Day: 1 Mental Status Patient Orientation: Person, Place, Time, Situation Transfers SCALE: Activities may be completed with or without assistive devices. 7-Gskbsfudtd-rnxuwwr completes the activity by him/herself with no assistance from a helper. 5-Set-up or Clean-up Assistance-helper sets up or cleans up; patient completes activity. [place] assists only prior to or following the activity. 4-Supervision or Touching Assistance-helper provides verbal cues and/or touching/steadying and/or contact guard assistance as patient completes activity. Assistance may be provided throughout the activity or intermittently. 3-Partial/Moderate Assistance-helper does LESS THAN HALF the effort. [place] lifts, holds or supports trunk or limbs, but provides less than half the effort. 2-Substantial/Maximal Assistance-helper does MORE THAN HALF the effort. [place] lifts or holds trunk or limbs and provides more than half the effort. 4-Xdjdauoeo-prdxiz does ALL the effort. Patient does none of the effort to complete the activity. Or, the assistance of 2 or more helpers is required for the patient to complete the activity. If activity was not attempted, code reason: 7-Patient Refused. 9-Not Applicable-not attempted and the patient did not perform the activity before the current illness, exacerbation or injury. 10-Not Attempted due to Environmental Limitations-(lack of equipment, weather restraints, etc.). 88-Not Attempted due to Medical Conditions or Safety Concerns. Sit to Stand (QC): 5 Toilet Transfer (QC): 5 Car Transfer (QC): 4 Weight Bearing Full Weight Bearing Left Lower Extremity: Left Weight Bearing/Tolerated Gait Training Does the Patient Walk?: Yes Distance: 150' Walk 10 feet (QC): 5 Walk 50 ft with 2 Turns(QC): 5 Walk 150 ft (QC): 5 Gait Assistive Device: FWW Treatments TF to standing and amb. in hallway. Pt completes car transfer practice. Pt returns to room to rest at end of amb. All needs met, call light in hand. Assessment Current Status: Good Progress Pt needs encouragement at times to try new tasks independently before saying she cannot do them. PT Short Term Goals Short Term Goals Time Frame: Mar 20, 2022 Roll Left & Right: 3 (mod A) Sit to lyin (modA) Lying to sitting on side of be: 3 (modA) Sit to stand: 3 (modA) Chair/xmg-gv-hubqa transfer: 3 (modA) Walk 10 feet: 3 (modA) PT Group Home Goals Group Home Goals PT Mechanical Project Engineer Goals Time Frame: Mar 27, 2022 Roll Left & Right (QC): 3 (Rusty) Sit to Lying (QC): 3 (Rusty) Lying-Sitting on Side/Bed(QC): 3 (Rusty) Sit to Stand (QC): 3 (Rusty) Chair/Lxk-rx-Vjost Xfer(QC): 3 (Rusty) Toilet Transfer (QC): 3 (Rusty) Car Transfer (QC): 3 (Rusty) Does the Patient Walk: No and Walking Goal IS indicated Walk 10 feet (QC): 3 (Rusty) Walk 50ft with 2 Turns (QC): 88 Walk 150 ft (QC): 88 Walking 10ft on Uneven Surface: 3 (Rusty) 1 Step (curb) (QC): 88 4 Steps (QC): 88 12 Steps (QC): 88 Picking up an Object (QC): 4 (CGA using a medical or surgical instrument maker) Wheel 50 feet with 2 turns (QC: 4 (SBA) Wheel 150 feet: 4 (SBA) PT Plan Problem List Problem List: Functional Strength Treatment/Plan Treatment Plan: Continue Plan of Care Treatment Plan: Bed Mobility, Education, Functional Activity Omari, Functional Strength, Group Therapy, Gait, Safety, Therapeutic Exercise, Transfers Treatment Duration: Mar 27, 2022 Frequency: At least 5 of 7 days/Wk (IRF) Estimated Hrs Per Day: 1.5 hours per day Patient and/or Family Agrees t: Yes Time Time In: 1330 Time Out: 1400 DATE: Mar 25, 2022 Total Billed Treatment Time: 30 Total Billed Treatment 1, GT (15m) & FA (15m) RANJITH CARLISLE SPORTS MEDIA Mar 25, 2022 15:56
[2022-03-25] MEDS: FERROUS SULF 325 MG (IRON) TAB PO SCH (18:10)
[2022-03-25 20:55] VITALS: BP 148/67
[2022-03-25] MEDS: amLODIPine 5 MG (NORVASC) TAB PO SCH (21:09)
--- NOTE | 2022-03-26 05:19 | PM&R Progress Note ---
Subjective HPI/CC On Admission Date Seen by Provider: Mar 26, 2022 Time Seen by Provider: 08:30 Subjective/Events-last exam 03/26/2022: Pt is doing pretty well Denies any significant new problems Bowels moved twice today Discharge back to [facility] tomorrow 03/25/2022: Pt is doing well Wants to go home soon Pain is controlled Bowels are moving 03/24/2022: Patient having a great day Pain is controlled Ambulating around Bowels continue to move 03/23/2022: Patient doing really well Bowels completely evacuated No more abdominal pain Will advance diet Walking around really well Weaned off oxygen 03/22/2022: Patient doing well except for constipation Lactulose being given every 4 hours Walking around pretty well No other concerns 03/21/2022: Abdominal pain reported KUB shows constipation Labs reviewed Dr Perkins consulted 03/20/2022: Doing well Pain controlled No falls Tolerating iron infusions 03/19/2022: Patient doing well Blood pressure good Bowels moving Pain controlled 03/18/2022: Improved status No pain reported unless she moves BP is usually elevated she reports as it is here now Labs stable 03/17/2022: Patient doing well No pain is reported when she is sleeping Blood pressure is elevated Monitoring closely 03/16/2022: Patient doing well Blood pressure really elevated today Added blood pressure medicine 03/15/2022: Patient doing well Took a shower Dulcolax suppository will be ordered for constipation continues Pain is controlled 03/14/2022: Patient settling in well Pain is pretty well controlled with pain med No major concerns Bowel regimen No falls Review of Systems General: Fatigue, Malaise Musculoskeletal: leg pain Objective Exam Vital Signs Vital Signs Date Time Temp Pulse Resp B/P (MAP) Pulse Ox O2 Delivery O2 Flow Rate FiO2 03/26/22 20:42 Room Air 03/26/22 19:37 37.0 76 16 127/69 (88) 95 03/25/22 06:58 1.00 Capillary Refill : General Appearance: No Apparent Distress, WD/WN, Chronically ill, Obese HEENT: PERRL/EOMI, Normal ENT Inspection, Pharynx Normal Neck: Full Range of Motion, Normal Inspection, Non Tender, Supple, Carotid Bruit Respiratory: Chest Non Tender, Lungs Clear, Normal Breath Sounds, No Accessory Muscle Use, No Respiratory Distress Cardiovascular: Regular Rate, Rhythm, No Edema, No Gallop, No JVD, No Murmur, Normal Peripheral Pulses Gastrointestinal: Normal Bowel Sounds, No Organomegaly, No Pulsatile Mass, Non Tender, Soft Back: Normal Inspection, No CVA Tenderness, No Vertebral Tenderness Extremity: Normal Capillary Refill, Normal Inspection, Normal Range of Motion ( Except left), Non Tender, No Calf Tenderness, No Pedal Edema Neurologic/Psychiatric: Alert, Oriented x3, No Motor/Sensory Deficits, Normal Mood/Affect, fnps II-XII Norm as Tested, Abnormal Gait, Motor Weakness (Left leg) Skin: Normal Color, Warm/Dry Lymphatic: No Adenopathy Results/Procedures Lab Patient resulted labs reviewed. FIM Transfers Therapy Code Descriptions/Definitions Functional [place] Measure: 0=Not Assessed/NA 4=Minimal Assistance 1=Total Assistance 5=Supervision or Setup 2=Maximal Assistance 6=Modified [place] 3=Moderate Assistance 7=Complete IndependenceSCALE: Activities may be completed with or without assistive devices. 0-Wvcyfszdox-kgcqntb completes the activity by him/herself with no assistance from a helper. 5-Set-up or Clean-up Assistance-helper sets up or cleans up; patient completes activity. [place] assists only prior to or following the activity. 4-Supervision or Touching Assistance-helper provides verbal cues and/or touching/steadying and/or contact guard assistance as patient completes activity. Assistance may be provided throughout the activity or intermittently. 3-Partial/Moderate Assistance-helper does LESS THAN HALF the effort. [place] lifts, holds or supports trunk or limbs, but provides less than half the effort. 2-Substantial/Maximal Assistance-helper does MORE THAN HALF the effort. [place] lifts or holds trunk or limbs and provides more than half the effort. 7-Cjfebdcxy-wspgus does ALL the effort. Patient does none of the effort to complete the activity. Or, the assistance of 2 or more helpers is required for the patient to complete the activity. If activity was not attempted, code reason: 7-Patient Refused. 9-Not Applicable-not attempted and the patient did not perform the activity before the current illness, exacerbation or injury. 10-Not Attempted due to Environmental Limitations-(lack of equipment, weather restraints, etc.). 88-Not Attempted due to Medical Conditions or Safety Concerns. Roll Left to Right (QC): 2 Sit to Lying (QC): 1 Sit to Stand (QC): 5 Chair/Jve-rb-Auslt Xfer(QC): 4 Car Transfer (QC): 4 Gait Training Does the Patient Walk?: Yes Distance: 150' Walk 10 feet (QC): 5 Walk 50 ft with 2 Turns(QC): 5 Walk 150 ft (QC): 5 Walking 10ft/uneven surface-QC: 88 Gait Persons Needed: 1 Gait Assistive Device: FWW Wheelchair Training Does the Pt Use a Wheelchair?: No Distance: 150' Wheel 50 ft with 2 turns (QC): 4 Wheel 150 ft (QC): 3 Type of Wheelchair: Manual Stair Training 1 Step (curb) (QC): 88 4 Steps (QC): 88 12 Steps (QC): 88 Balance Picking up an Object (QC): 88 ADL-Treatment Eating (QC): 6 Oral Hygiene (QC): 6 Shower/Bathe Self (QC): 3 Upper Body Dressing (QC): 5 Lower Body Dressing (QC): 5 On/Off Footwear (QC): 1 Toileting Hygiene (QC): 6 Toilet Transfer (QC): 6 Assessment/Plan Assessment and Plan Assess & Plan/Chief Complaint Assessment: Left femur fracture status post repair at [place] Severe chronic lower extremity edema Hypothyroidisim Anemia Hypoalbuminemia Advanced age Postop constipation now resolved for the second time Acute blood loss anemia iron def and b12 def supplementing both Postop constipation-resolved but recurred on 03/21/2022 prompting general surgery consultation now resolved on 03/23/2022 Plan: Pain control Bowel regimen PT and OT Supportive care 03/14/2022: Pain control Therapy protocol 03/15/2022: Check iron and B12 Monitor pain Bowel regimen 03/16/2022: Supportive care Continue current treatment Monitor blood pressure after addition of blood pressure meds 03/17/2022: Blood pressure management Pain control 03/18/2022: Iron infusion tomorrow morning along with B12 03/19/2022: Supportive care Iron infusion and B12 03/20/2022: Supportive care 03/21/2022: Monitor abdominal pain Supportive care 03/22/2022: Supportive care Monitor closely Aggressive bowel regimen 03/23/2022: Continue bowel regimen Advance diet 03/24/2022: Supportive care 03/25/2022: DC planning 03/26/2022: [facility] tomorrow (1) Intertrochanteric fracture of femur Status: Acute MOLLY MUIR DO Mar 26, 2022 05:19
[2022-03-26] MEDS: CATHETER FLUSH 10 ML SYR IVP SCH ×3 (05:47→20:15)
[2022-03-26] MEDS: LEVOTHYROXINE 88 MCG (LEVOTHORID) TAB PO SCH (05:47)
[2022-03-26] MEDS: CYANOCOBALAMIN 1,000 MCG (VITAMIN B-12) TABLET PO SCH (06:48)
[2022-03-26] MEDS: MULTIVIT W/MINERALS TAB (THERAGRAN M) PO SCH (06:48)
[2022-03-26] MEDS: KCL 20 MEQ TAB (K-DUR) PO SCH (06:48)
[2022-03-26 07:23] VITALS: BP 164/74
[2022-03-26] MEDS: polyethylene glycoL POWDER 17 GM (MIRALAX) PACK PO SCH ×3 (08:32→19:49)
[2022-03-26] MEDS: DOCUSATE SODIUM 100 MG (COLACE) CAP PO SCH ×2 (08:36→20:15)
[2022-03-26] MEDS: PANTOPRAZOLE 40 MG (PROTONIX) TAB PO SCH (08:36)
[2022-03-26] MEDS: VITAMIN D3 125 MCG (5,000 UNITS) CAPSULE PO SCH (08:36)
[2022-03-26] MEDS: SENNA W/DOCUSATE (SENOKOT S) TABLET PO SCH ×2 (08:36→20:15)
[2022-03-26] MEDS: ASPIRIN 81 MG CHEW (CHILDREN'S ASA) PO SCH ×2 (08:37→20:14)
[2022-03-26] MEDS: LACTOBACILLUS ACIDOPHILUS (PROBIOTIC) CAPSULE PO SCH ×3 (08:37→17:52)
[2022-03-26] MEDS: ARTIFICAL TEARS 0.4 ML UNIT DOSE (REFRESH PLUS) OU SCH ×2 (08:37→20:15)
[2022-03-26] MEDS: LOSARTAN 50 MG (COZAAR) TAB PO SCH (08:37)
[2022-03-26] MEDS: hydrALAZINE (APRESOLINE) 25 MG TAB PO SCH ×3 (08:37→20:14)
--- NOTE | 2022-03-26 09:53 | Physical Therapy Daily Note ---
PT Daily Note-Current Subjective Pt sitting in recliner upon arrival. Pt agrees to PT for QC scoring items for anticipated d/c tomorrow. Pain Location: No Pain Reported Section J - Health Conditions 1. Rarely or not at all 2. Occasionally 3. Frequently 4. Almost constantly 8. Unable to answer Pain Effect on Sleep: 1 Pain Interference with Therapy: 2 Pain Interference w/Day-to-Day: 1 Mental Status Patient Orientation: Person, Place, Time, Situation Transfers SCALE: Activities may be completed with or without assistive devices. 4-Pqpbunurgw-uuptwwe completes the activity by him/herself with no assistance from a helper. 5-Set-up or Clean-up Assistance-helper sets up or cleans up; patient completes activity. [place] assists only prior to or following the activity. 4-Supervision or Touching Assistance-helper provides verbal cues and/or touching/steadying and/or contact guard assistance as patient completes activity. Assistance may be provided throughout the activity or intermittently. 3-Partial/Moderate Assistance-helper does LESS THAN HALF the effort. [place] lifts, holds or supports trunk or limbs, but provides less than half the effort. 2-Substantial/Maximal Assistance-helper does MORE THAN HALF the effort. [place] lifts or holds trunk or limbs and provides more than half the effort. 8-Thumbelkj-yeinzu does ALL the effort. Patient does none of the effort to complete the activity. Or, the assistance of 2 or more helpers is required for the patient to complete the activity. If activity was not attempted, code reason: 7-Patient Refused. 9-Not Applicable-not attempted and the patient did not perform the activity before the current illness, exacerbation or injury. 10-Not Attempted due to Environmental Limitations-(lack of equipment, weather restraints, etc.). 88-Not Attempted due to Medical Conditions or Safety Concerns. Roll Left & Right (QC): 6 Sit to Lying (QC): 4 Lying to Sitting/Side of Bed(Q: 5 Sit to Stand (QC): 6 Chair/Fwx-cr-Uqpnx Xfer(QC): 6 Toilet Transfer (QC): 6 Car Transfer (QC): 4 Pt uses lift chair for sit to stand TF but can TF from lower surface when heavily encouraged. Pt sleeps in lift chair at home not bed. Weight Bearing Full Weight Bearing Left Lower Extremity: Left Weight Bearing/Tolerated Gait Training Does the Patient Walk?: Yes Distance: 150' x2 Walk 10 feet (QC): 6 Walk 50 ft with 2 Turns(QC): 6 Walk 150 ft (QC): 5 Walking 10ft/uneven surface-QC: 5 Gait Assistive Device: FWW Wheelchair Training Does the Pt Use a Wheelchair?: No Stair Training 1 Step (curb) (QC): 88 4 Steps (QC): 88 12 Steps (QC): 88 Pt doesn't complete stairs as pt reports not having any to have to complete. Per this SCHOOL TRANSPORTATION DIRECTOR's clinical judgment, pt could not lift legs high enough or have enough strength to complete steps. Balance Picking up an Object (QC): 6 Treatments Pt completes QC scoring items listed above including toileting and amb. Pt returns to room to rest in recliner at end of tx w/all needs met, call light in hand. Assessment Current Status: Good Progress Pt has gained strength and mobility w/in what was baseline for pt but pt could complete more if pt pushed self. PT Short Term Goals Short Term Goals Time Frame: Mar 20, 2022 Roll Left & Right: 3 (mod A) Sit to lyin (modA) Lying to sitting on side of be: 3 (modA) Sit to stand: 3 (modA) Chair/lfu-pf-htopw transfer: 3 (modA) Walk 10 feet: 3 (modA) PT Mcfp Goals Factory Maintenance Manager Goals PT Factory Maintenance Manager Goals Time Frame: Mar 27, 2022 Roll Left & Right (QC): 3 (Rusty) Sit to Lying (QC): 3 (Rusty) Lying-Sitting on Side/Bed(QC): 3 (Rusty) Sit to Stand (QC): 3 (Rusty) Chair/Fjm-dw-Pqcbl Xfer(QC): 3 (Rusty) Toilet Transfer (QC): 3 (Rusty) Car Transfer (QC): 3 (Rusty) Does the Patient Walk: No and Walking Goal IS indicated Walk 10 feet (QC): 3 (Rusty) Walk 50ft with 2 Turns (QC): 88 Walk 150 ft (QC): 88 Walking 10ft on Uneven Surface: 3 (Rusty) 1 Step (curb) (QC): 88 4 Steps (QC): 88 12 Steps (QC): 88 Picking up an Object (QC): 4 (CGA using a aeronautical engineering teacher) Wheel 50 feet with 2 turns (QC: 4 (SBA) Wheel 150 feet: 4 (SBA) PT Plan Problem List Problem List: Activity Tolerance Treatment/Plan Treatment Plan: Continue Plan of Care Treatment Plan: Bed Mobility, Education, Functional Activity Omari, Functional Strength, Group Therapy, Gait, Safety, Therapeutic Exercise, Transfers Treatment Duration: Mar 27, 2022 Frequency: At least 5 of 7 days/Wk (IRF) Estimated Hrs Per Day: 1.5 hours per day Patient and/or Family Agrees t: Yes Time Time In: 800 Time Out: 900 DATE: Mar 26, 2022 Total Billed Treatment Time: 60 Total Billed Treatment 1, GT (20m) & FA x3 (40m) RANJITH CARLISLE SCHOOL TRANSPORTATION DIRECTOR Mar 26, 2022 09:53
--- NOTE | 2022-03-26 10:40 | Occupational Ther Daily Note ---
OT Current Status-Daily Note Subjective Pt alert, sitting in recliner. Pt agrees to therapy. No c/o pain. Mental Status/Objective Patient Orientation: Person, Place, Time, Situation Attachments: IV ADL-Treatment Pt agrees to shower. Independent with eating. Independent with oral care. Independent with toileting. Min A for shower, assist to complete feet and buttocks. Independent with upper body dressing. Pt has demonstrated ability to complete lower body dressing with AE. Per pt, Jamie stephany assists with threading lower body clothing over feet after shower. Assistance given to complete footwear. Therapy Code Descriptions/Definitions Functional [place] Measure: 0=Not Assessed/NA 4=Minimal Assistance 1=Total Assistance 5=Supervision or Setup 2=Maximal Assistance 6=Modified [place] 3=Moderate Assistance 7=Complete IndependenceSCALE: Activities may be completed with or without assistive devices. 0-Byhxccqwvh-hlmpmsr completes the activity by him/herself with no assistance from a helper. 5-Set-up or Clean-up Assistance-helper sets up or cleans up; patient completes activity. [place] assists only prior to or following the activity. 4-Supervision or Touching Assistance-helper provides verbal cues and/or touching/steadying and/or contact guard assistance as patient completes activit y. Assistance may be provided throughout the activity or intermittently. 3-Partial/Moderate Assistance-helper does LESS THAN HALF the effort. [place] lifts, holds or supports trunk or limbs, but provides less than half the effort. 2-Substantial/Maximal Assistance-helper does MORE THAN HALF the effort. [place] lifts or holds trunk or limbs and provides more than half the effort. 2-Scapllwdg-ijfbsk does ALL the effort. Patient does none of the effort to complete the activity. Or, the assistance of 2 or more helpers is required for the patient to complete the activity. If activity was not attempted, code reason: 7-Patient Refused. 9-Not Applicable-not attempted and the patient did not perform the activity before the current illness, exacerbation or injury. 10-Not Attempted due to Environmental Limitations-(lack of equipment, weather restraints, etc.). 88-Not Attempted due to Medical Conditions or Safety Concerns. Eating (QC): 6 Oral Hygiene (QC): 6 Shower/Bathe Self (QC): 3 Upper Body Dressing (QC): 6 On/Off Footwear: 1 Toileting Hygiene (QC): 6 Toilet Transfer (QC): 6 Other Treatment 3# hand wt exercises to increase strength for daily functional tasks, 3 sets 10 reps each. After session, pt sitting in recliner with call light/phone in reach. All needs met in room. OT Short Term Goals Short Term Goals Time Frame: Mar 29, 2022 Toileting hygiene: 3 Shower/bathe self: 3 Lower body dressin Putting on/taking off footwear: 3 OT Manager Card Goals Manager Card Goals Time Frame: Apr 12, 2022 Acute change in mental status: 0 Inattention: 0 Disorganized thinkin Altered level of consciousness: 0 Eating (QC): 6 Oral Hygiene (QC): 6 Toileting Hygiene (QC): 4 Shower/Bathe Self (QC): 4 Upper Body Dressing (QC): 5 Lower Body Dressing (QC): 4 On/Off Footwear (QC): 4 Additional Goals: 1-Demonstrate ADL Tasks, 2-Verbalize Understanding, 3- ImproveStrength/Omari 1=Demonstrate adherence to instructed precautions during ADL tasks. 2=Patient will verbalize/demonstrate understanding of assistive devices/modifications for ADL. 3=Patient will improve strength/tolerance for activity to enable patient to perform ADL's. OT Education/Plan Problem List/Assessment Assessment: Decreased Activ Tolerance, Impaired Self-Care Skills Discharge Recommendations Plan/Recommendations: Continue POC Treatment Plan/Plan of Care Patient would benefit from OT for education, treatment and training to promote independence in ADL's, mobility, safety and/or upper extremity function for ADL's. Plan of Care: ADL Retraining, Functional Mobility, Group Exercise/Act as Ind, UE Funct Exercise/Act Treatment Duration: Apr 12, 2022 Frequency: At least 5 of 7 days/Wk (IRF) Estimated Hrs Per Day: 1.5 hours per day Agreement: Yes Rehab Potential: Guarded Time Start Time: 09:00 Stop Time: 10:30 DATE: Mar 26, 2022 Total Time Billed (hr/min): 90 Billed Treatment Time 1 visit-ADL 5 (75 min) EX 1 (15 min) JANAE GRIJALVA Mar 26, 2022 10:40
--- NOTE | 2022-03-26 12:48 | IRF PAI BIMS ---
BIMS CAM BIMS Expression of Ideas and Wants: Without Difficulty Understanding Verbal Content: Understands Brief Interview/Mental Status: Yes IRF LYRIC BIMS: IRF LYRIC BIMS Response (Comments) Value Repitition of Three Words Three 3 Recalls Socks Yes, No Cue Required 2 Recalls Blue Yes, No Cue Required 2 Recalls Bed Yes, No Cue Required 2 Year Correct 3 Month Accurate Within 5 Days 2 Day Correct 1 Total 15 Patient Normally Able to Recal: Current Session, Location of own room, Staff Names and faces, That he/she in a hsp Should Staff Asses. Mental St.: No CAM Mental Status Change/Baseline: 0 Inattention: 0 Disorganized thinkin Altered level of consciousness: 0 JANAE GRIJALVA Mar 26, 2022 12:48
--- NOTE | 2022-03-26 15:54 | Physical Therapy Daily Note ---
PT Daily Note-Current Subjective Pt sitting in recliner upon arrival. Pt agrees to PT. Pain Location: No Pain Reported Section J - Health Conditions 1. Rarely or not at all 2. Occasionally 3. Frequently 4. Almost constantly 8. Unable to answer Pain Effect on Sleep: 1 Pain Interference with Therapy: 2 Pain Interference w/Day-to-Day: 1 Mental Status Patient Orientation: Person, Place, Time, Situation Transfers SCALE: Activities may be completed with or without assistive devices. 0-Hkppdlxwxz-sskqgwf completes the activity by him/herself with no assistance from a helper. 5-Set-up or Clean-up Assistance-helper sets up or cleans up; patient completes activity. [place] assists only prior to or following the activity. 4-Supervision or Touching Assistance-helper provides verbal cues and/or touching/steadying and/or contact guard assistance as patient completes activity. Assistance may be provided throughout the activity or intermittently. 3-Partial/Moderate Assistance-helper does LESS THAN HALF the effort. [place] lifts, holds or supports trunk or limbs, but provides less than half the effort. 2-Substantial/Maximal Assistance-helper does MORE THAN HALF the effort. [place] lifts or holds trunk or limbs and provides more than half the effort. 0-Tuknxbbkd-kfcsmg does ALL the effort. Patient does none of the effort to complete the activity. Or, the assistance of 2 or more helpers is required for the patient to complete the activity. If activity was not attempted, code reason: 7-Patient Refused. 9-Not Applicable-not attempted and the patient did not perform the activity before the current illness, exacerbation or injury. 10-Not Attempted due to Environmental Limitations-(lack of equipment, weather restraints, etc.). 88-Not Attempted due to Medical Conditions or Safety Concerns. Sit to Stand (QC): 5 Toilet Transfer (QC): 5 Weight Bearing Full Weight Bearing Left Lower Extremity: Left Weight Bearing/Tolerated Gait Training Does the Patient Walk?: Yes Distance: 15' x2 Walk 10 feet (QC): 5 Gait Assistive Device: FWW Wheelchair Training Does the Pt Use a Wheelchair?: No Treatments TF to standing and amb. to BR. After finishing, pt returns to recliner and repositioned to comfort. All needs met, call light in hand. Assessment Current Status: Good Progress Pt has gained independence in TF and mobility. PT Short Term Goals Short Term Goals Time Frame: Mar 20, 2022 Roll Left & Right: 3 (mod A) Sit to lyin (modA) Lying to sitting on side of be: 3 (modA) Sit to stand: 3 (modA) Chair/ecj-uw-hpxju transfer: 3 (modA) Walk 10 feet: 3 (modA) PT Usp Goals Usp Goals PT Usp Goals Time Frame: Mar 27, 2022 Roll Left & Right (QC): 3 (Rusty) Sit to Lying (QC): 3 (Rusty) Lying-Sitting on Side/Bed(QC): 3 (Rusty) Sit to Stand (QC): 3 (Rusty) Chair/Azu-sx-Rcjcg Xfer(QC): 3 (Rusty) Toilet Transfer (QC): 3 (Rusty) Car Transfer (QC): 3 (Rusty) Does the Patient Walk: No and Walking Goal IS indicated Walk 10 feet (QC): 3 (Rusty) Walk 50ft with 2 Turns (QC): 88 Walk 150 ft (QC): 88 Walking 10ft on Uneven Surface: 3 (Rusty) 1 Step (curb) (QC): 88 4 Steps (QC): 88 12 Steps (QC): 88 Picking up an Object (QC): 4 (CGA using a management sme) Wheel 50 feet with 2 turns (QC: 4 (SBA) Wheel 150 feet: 4 (SBA) PT Plan Problem List Problem List: Activity Tolerance Treatment/Plan Treatment Plan: Continue Plan of Care Treatment Plan: Bed Mobility, Education, Functional Activity Omari, Functional Strength, Group Therapy, Gait, Safety, Therapeutic Exercise, Transfers Treatment Duration: Mar 27, 2022 Frequency: At least 5 of 7 days/Wk (IRF) Estimated Hrs Per Day: 1.5 hours per day Patient and/or Family Agrees t: Yes Time Time In: 1400 Time Out: 1430 DATE: Mar 26, 2022 Total Billed Treatment Time: 30 Total Billed Treatment 1, FA x2 (30m) RANJITH CARLISLE AIRCRAFT QUALITY CONTROL INSPECTOR Mar 26, 2022 15:54
[2022-03-26 19:37] VITALS: BP 127/69
[2022-03-26] MEDS: amLODIPine 5 MG (NORVASC) TAB PO SCH (20:14)
[2022-03-27] MEDS: CATHETER FLUSH 10 ML SYR IVP SCH (05:33)
[2022-03-27] MEDS: MULTIVIT W/MINERALS TAB (THERAGRAN M) PO SCH (05:34)
[2022-03-27] MEDS: CYANOCOBALAMIN 1,000 MCG (VITAMIN B-12) TABLET PO SCH (05:34)
[2022-03-27] MEDS: KCL 20 MEQ TAB (K-DUR) PO SCH (05:34)
[2022-03-27] MEDS: LEVOTHYROXINE 88 MCG (LEVOTHORID) TAB PO SCH (05:34)
[2022-03-27] MEDS ORDERED: HYDR-3923 PO (06:48)
[2022-03-27] MEDS ORDERED: LACT20SO2 PO (06:48)
[2022-03-27] MEDS ORDERED: CALC-250 PO (06:48)
[2022-03-27] MEDS ORDERED: CYAN-41 PO (06:48)
[2022-03-27] MEDS ORDERED: LOSA50TA63 PO (06:48)
[2022-03-27] MEDS ORDERED: LEVO88CA4 PO (06:48)
[2022-03-27] MEDS ORDERED: PANT40TA52 PO (06:48)
[2022-03-27] MEDS ORDERED: POTA-51 PO (06:48)
[2022-03-27] MEDS ORDERED: HYDR-3817 PO (06:48)
[2022-03-27] MEDS ORDERED: POLY17PO6 PO (06:48)
[2022-03-27] MEDS ORDERED: ASPI-999 PO (06:48)
[2022-03-27] MEDS ORDERED: SENN1TAB76 PO (06:48)
[2022-03-27] MEDS ORDERED: FURO-125 PO (06:48)
[2022-03-27] MEDS ORDERED: LACT1CAP7 PO (06:48)
[2022-03-27] MEDS ORDERED: AMLO-250 PO (06:48)
--- NOTE | 2022-03-27 06:50 | D/C HH Face to Face Order ---
D/C Face to Face Orders Reconcile Patient Problems Problems Reviewed?: Yes Instructions for Patient Via [facility], Patient Instructions/FollowUp: PCP 1 week Physician to follow Patient: Jed Discharge Diet for Home: No Restrictions Patient Problems: Debility Patient Data-Allergies,Ht & Wt Patient Allergies: Coded Allergies: No Known Drug Allergies (Unverified , 10/06/21) Home Health Need/Face to Face Date of Face to Face: Mar 27, 2022 Clinical Findings: Generalized weakness and fatigue, Instability, Muscle weakness I have seen Pt zxrv-le-nycm: Yes Discharged To: Home Diagnosis/Conditions: Debility Patient is Homebound due to: Muscle weakness Homebound Status Due to the above stated illness, injury or surgical procedure (medical condition or diagnosis) and associated clinical findings, the patient is homebound because of his/her inability to leave home except with aid of a supportive device and/or person AND leaving the home requires a considerable and taxing effort or is medically contraindicated. Pt req the following assistanc: Walker Home Health Nursing Orders Home Health Services Order: Highway Engineering Technician-Evaluate & Treat, Physical Therapy-Evaluate & Treat Home Health Infusion Therapy Line Start Date: Mar 21, 2022 Certify Stmt I certify that this patient is under my care and that I, a nurse practitioner or a physician; a diagnostic assistant working with me, had a face to face encounter that - meets the physician face to face encounter requirements with this patient as dated. MOLLY MUIR DO Mar 27, 2022 06:50
--- NOTE | 2022-03-27 06:50 | Discharge Summary ---
Diagnosis/Chief Complaint Date of Admission Mar 13, 2022 at 15:05 Date of Discharge Discharge Date: Mar 27, 2022 Discharge Diagnosis Assessment: Left femur fracture status post repair at [place] Severe chronic lower extremity edema Hypothyroidisim Anemia Hypoalbuminemia Advanced age Postop constipation now resolved for the second time Acute blood loss anemia iron def and b12 def supplementing both Postop constipation-resolved but recurred on 03/21/2022 prompting general surgery consultation now resolved on 03/23/2022 Plan: Pain control Bowel regimen PT and OT Supportive care 03/14/2022: Pain control Therapy protocol 03/15/2022: Check iron and B12 Monitor pain Bowel regimen 03/16/2022: Supportive care Continue current treatment Monitor blood pressure after addition of blood pressure meds 03/17/2022: Blood pressure management Pain control 03/18/2022: Iron infusion tomorrow morning along with B12 03/19/2022: Supportive care Iron infusion and B12 03/20/2022: Supportive care 03/21/2022: Monitor abdominal pain Supportive care 03/22/2022: Supportive care Monitor closely Aggressive bowel regimen 03/23/2022: Continue bowel regimen Advance diet 03/24/2022: Supportive care 03/25/2022: DC planning 03/26/2022: DC tomorrow (1) Intertrochanteric fracture of femur Status: Acute Discharge Summary Discharge Physical Examination Allergies: Coded Allergies: No Known Drug Allergies (Unverified , 10/06/21) Vitals & I&Os Vital Signs Date Time Temp Pulse Resp B/P (MAP) Pulse Ox O2 Delivery O2 Flow Rate FiO2 03/27/22 11:00 36.7 86 16 148/65 97 Room Air 03/25/22 06:58 1.00 General Appearance: Alert, Oriented X3, Cooperative Respiratory: Clear to Auscultation Cardiovascular: Regular Rate Psych/Mental Status: Mental Status NL Hospital Course Was the Problem List Reviewed?: Yes Pt had an uneventful 15 day hospital course after she sustained a left femur fracture. She was given IV iron during the hospital stay due to iron deficiency anemia along with B12. Pain was well controlled. Severe constipation occured. She was given a great deal of laxatives along with Dr. Perkins consult. Ultimately was able to improve enough for discharge. Laxatives were given along with pain medication at discharge. Pt will go to [facility]. Labs (last 24 hrs) Laboratory Tests 03/14/22 06:09: White Blood Count 8.0, Red Blood Count 2.71L, Hemoglobin 8.3L, Hematocrit 26L, Mean Corpuscular Volume 96, Mean Corpuscular Hemoglobin 31, Mean Corpuscular Hemoglobin Concent 32, Red Cell Distribution Width 15.2H, Platelet Count 223, Mean Platelet Volume 9.9, Immature Granulocyte % (Auto) 0, Neutrophils (%) (Auto) 64, Lymphocytes (%) (Auto) 16, Monocytes (%) (Auto) 14H, Eosinophils (%) (Auto) 4, Basophils (%) (Auto) 1, Neutrophils # (Auto) 5.2, Lymphocytes # (Auto) 1.3, Monocytes # (Auto) 1.2H, Eosinophils # (Auto) 0.4H, Basophils # (Auto) 0.0, Immature Granulocyte # (Auto) 0.0, Sodium Level 137, Potassium Level 3.7, Chloride Level 104, Carbon Dioxide Level 26, Anion Gap 7, Blood Urea Nitrogen 20H, Creatinine 0.80, Estimat Glomerular Filtration Rate 73, BUN/Creatinine Ratio 25, Glucose Level 115H, Calcium Level 8.3L, Corrected Calcium 9.3, Iron Level 29L, Total Bilirubin 0.7, Aspartate Amino Transf (AST/SGOT) 21, Alanine Aminotransferase (ALT/SGPT) 13, Alkaline Phosphatase 47, Total Protein 5.8L, Albumin 2.8L, Vitamin B12 Level 304 03/18/22 07:20: White Blood Count 9.0, Red Blood Count 3.13L, Hemoglobin 9.7L, Hematocrit 30L, Mean Corpuscular Volume 96, Mean Corpuscular Hemoglobin 31, Mean Corpuscular Hemoglobin Concent 32, Red Cell Distribution Width 15.3H, Platelet Count 397, Mean Platelet Volume 9.4, Immature Granulocyte % (Auto) 0, Neutrophils (%) (Auto) 65, Lymphocytes (%) (Auto) 18, Monocytes (%) (Auto) 11, Eosinophils (%) (Auto) 4, Basophils (%) (Auto) 1, Neutrophils # (Auto) 5.9, Lymphocytes # (Auto) 1.6, Monocytes # (Auto) 1.0, Eosinophils # (Auto) 0.4H, Basophils # (Auto) 0.1, Immature Granulocyte # (Auto) 0.0, Sodium Level 139, Potassium Level 4.0, Chloride Level 103, Carbon Dioxide Level 28, Anion Gap 8, Blood Urea Nitrogen 18, Creatinine 1.05, Estimat Glomerular Filtration Rate 52, BUN/Creatinine Ratio 17, Glucose Level 107H, Calcium Level 9.3, Corrected Calcium 9.7, Total Bilirubin 0.7, Aspartate Amino Transf (AST/SGOT) 25, Alanine Aminotransferase (ALT/SGPT) 16, Alkaline Phosphatase 68, Total Protein 7.3, Albumin 3.5 03/21/22 11:36: White Blood Count 12.0H, Red Blood Count 3.25L, Hemoglobin 10.1L, Hematocrit 31L , Mean Corpuscular Volume 96, Mean Corpuscular Hemoglobin 31, Mean Corpuscular Hemoglobin Concent 33, Red Cell Distribution Width 15.5H, Platelet Count 500H, Mean Platelet Volume 9.2, Immature Granulocyte % (Auto) 1, Neutrophils (%) (Auto) 75, Lymphocytes (%) (Auto) 13, Monocytes (%) (Auto) 9, Eosinophils (%) (Auto) 1, Basophils (%) (Auto) 1, Neutrophils # (Auto) 9.0H, Lymphocytes # (Auto) 1.6, Monocytes # (Auto) 1.1H, Eosinophils # (Auto) 0.1, Basophils # (Auto) 0.1, Immature Granulocyte # (Auto) 0.1, Sodium Level 139, Potassium Level 3.9, Chloride Level 102, Carbon Dioxide Level 28, Anion Gap 9, Blood Urea Nitrogen 22H, Creatinine 1.08, Estimat Glomerular Filtration Rate 51, BUN/Creatinine Ratio 20, Glucose Level 136H, Calcium Level 9.4, Corrected Calcium 9.6, Total Bilirubin 0.6, Aspartate Amino Transf (AST/SGOT) 26, Alanine Aminotransferase (ALT/SGPT) 17, Alkaline Phosphatase 88, Total Protein 7.6, Albumin 3.8, Erythrocyte Sedimentation Rate 49H 03/25/22 05:49: White Blood Count 8.7, Red Blood Count 3.01L, Hemoglobin 9.4L, Hematocrit 29L, Mean Corpuscular Volume 97, Mean Corpuscular Hemoglobin 31, Mean Corpuscular Hemoglobin Concent 32, Red Cell Distribution Width 16.9H, Platelet Count 458H, Mean Platelet Volume 9.0, Immature Granulocyte % (Auto) 1, Neutrophils (%) (Auto) 59, Lymphocytes (%) (Auto) 24, Monocytes (%) (Auto) 12, Eosinophils (%) (Auto) 4, Basophils (%) (Auto) 1, Neutrophils # (Auto) 5.1, Lymphocytes # (Auto) 2.1, Monocytes # (Auto) 1.1H, Eosinophils # (Auto) 0.4H, Basophils # (Auto) 0.1, Immature Granulocyte # (Auto) 0.1, Sodium Level 137, Potassium Level 3.9, Chloride Level 105, Carbon Dioxide Level 24, Anion Gap 8, Blood Urea Nitrogen 22H, Creatinine 1.24, Estimat Glomerular Filtration Rate 43, BUN/Creatinine Ratio 18, Glucose Level 101, Calcium Level 8.9, Corrected Calcium 9.5, Total Bilirubin 0.5, Aspartate Amino Transf (AST/SGOT) 23, Alanine Aminotransferase (ALT/SGPT) 20, Alkaline Phosphatase 77, Total Protein 6.3L, Albumin 3.3 Pending Labs Laboratory Tests 03/14/22 06:09: White Blood Count 8.0, Red Blood Count 2.71, Hemoglobin 8.3, Hematocrit 26, Mean Corpuscular Volume 96, Mean Corpuscular Hemoglobin 31, Mean Corpuscular Hemoglobin Concent 32, Red Cell Distribution Width 15.2, Platelet Count 223, Mean Platelet Volume 9.9, Immature Granulocyte % (Auto) 0, Neutrophils (%) (Auto) 64, Lymphocytes (%) (Auto) 16, Monocytes (%) (Auto) 14, Eosinophils (%) (Auto) 4, Basophils (%) (Auto) 1, Neutrophils # (Auto) 5.2, Lymphocytes # (Auto) 1.3, Monocytes # (Auto) 1.2, Eosinophils # (Auto) 0.4, Basophils # (Auto) 0.0, Immature Granulocyte # (Auto) 0.0, Sodium Level 137, Potassium Level 3.7, Chloride Level 104, Carbon Dioxide Level 26, Anion Gap 7, Blood Urea Nitrogen 20, Creatinine 0.80, Estimat Glomerular Filtration Rate 73, BUN/Creatinine Ratio 25, Glucose Level 115, Calcium Level 8.3, Corrected Calcium 9.3, Iron Level 29, Total Bilirubin 0.7, Aspartate Amino Transf (AST/SGOT) 21, Alanine Aminotransferase (ALT/SGPT) 13, Alkaline Phosphatase 47, Total Protein 5.8, Albumin 2.8, Vitamin B12 Level 304 03/18/22 07:20: White Blood Count 9.0, Red Blood Count 3.13, Hemoglobin 9.7, Hematocrit 30, Mean Corpuscular Volume 96, Mean Corpuscular Hemoglobin 31, Mean Corpuscular Hemoglobin Concent 32, Red Cell Distribution Width 15.3, Platelet Count 397, Mean Platelet Volume 9.4, Immature Granulocyte % (Auto) 0, Neutrophils (%) (Auto) 65, Lymphocytes (%) (Auto) 18, Monocytes (%) (Auto) 11, Eosinophils (%) (Auto) 4, Basophils (%) (Auto) 1, Neutrophils # (Auto) 5.9, Lymphocytes # (Auto) 1.6, Monocytes # (Auto) 1.0, Eosinophils # (Auto) 0.4, Basophils # (Auto) 0.1, Immature Granulocyte # (Auto) 0.0, Sodium Level 139, Potassium Level 4.0, Chloride Level 103, Carbon Dioxide Level 28, Anion Gap 8, Blood Urea Nitrogen 18, Creatinine 1.05, Estimat Glomerular Filtration Rate 52, BUN/Creatinine Ratio 17, Glucose Level 107, Calcium Level 9.3, Corrected Calcium 9.7, Total Bilirubin 0.7, Aspartate Amino Transf (AST/SGOT) 25, Alanine Aminotransferase (ALT/SGPT) 16, Alkaline Phosphatase 68, Total Protein 7.3, Albumin 3.5 03/21/22 11:36: White Blood Count 12.0, Red Blood Count 3.25, Hemoglobin 10.1, Hematocrit 31, Mean Corpuscular Volume 96, Mean Corpuscular Hemoglobin 31, Mean Corpuscular Hemoglobin Concent 33, Red Cell Distribution Width 15.5, Platelet Count 500, Mean Platelet Volume 9.2, Immature Granulocyte % (Auto) 1, Neutrophils (%) (Auto) 75, Lymphocytes (%) (Auto) 13, Monocytes (%) (Auto) 9, Eosinophils (%) (Auto) 1, Basophils (%) (Auto) 1, Neutrophils # (Auto) 9.0, Lymphocytes # (Auto) 1.6, Monocytes # (Auto) 1.1, Eosinophils # (Auto) 0.1, Basophils # (Auto) 0.1, Immature Granulocyte # (Auto) 0.1, Sodium Level 139, Potassium Level 3.9, Chloride Level 102, Carbon Dioxide Level 28, Anion Gap 9, Blood Urea Nitrogen 22, Creatinine 1.08, Estimat Glomerular Filtration Rate 51, BUN/Creatinine Ratio 20, Glucose Level 136, Calcium Level 9.4, Corrected Calcium 9.6, Total Bilirubin 0.6, Aspartate Amino Transf (AST/SGOT) 26, Alanine Aminotransferase (ALT/SGPT) 17, Alkaline Phosphatase 88, Total Protein 7.6, Albumin 3.8, Erythrocyte Sedimentation Rate 49 03/25/22 05:49: White Blood Count 8.7, Red Blood Count 3.01, Hemoglobin 9.4, Hematocrit 29, Mean Corpuscular Volume 97, Mean Corpuscular Hemoglobin 31, Mean Corpuscular Hemoglobin Concent 32, Red Cell Distribution Width 16.9, Platelet Count 458, Mean Platelet Volume 9.0, Immature Granulocyte % (Auto) 1, Neutrophils (%) (Auto) 59, Lymphocytes (%) (Auto) 24, Monocytes (%) (Auto) 12, Eosinophils (%) (Auto) 4, Basophils (%) (Auto) 1, Neutrophils # (Auto) 5.1, Lymphocytes # (Auto) 2.1, Monocytes # (Auto) 1.1, Eosinophils # (Auto) 0.4, Basophils # (Auto) 0.1, Immature Granulocyte # (Auto) 0.1, Sodium Level 137, Potassium Level 3.9, Chloride Level 105, Carbon Dioxide Level 24, Anion Gap 8, Blood Urea Nitrogen 22, Creatinine 1.24, Estimat Glomerular Filtration Rate 43, BUN/Creatinine Ratio 18, Glucose Level 101, Calcium Level 8.9, Corrected Calcium 9.5, Total Bilirubin 0.5, Aspartate Amino Transf (AST/SGOT) 23, Alanine Aminotransferase (ALT/SGPT) 20, Alkaline Phosphatase 77, Total Protein 6.3, Albumin 3.3 Discharge Home Medications: Active Scripts Active Vitamin B-12 (Cyanocobalamin (Vitamin B-12)) 1,000 Mcg Tablet 1,000 Mcg PO DAILY@0700 Stool Softener-Laxative Tablet (Sennosides/Docusate Sodium) 8.6 Mg-50 Mg Tablet 1 Ea PO BID Lactulose 20 Gram/30 Ml Solution 10 Gm PO BID PRN Hydralazine HCl 25 Mg Tablet 25 Mg PO TID Hydrocodone-Acetamin 7.5-325 (Hydrocodone/Acetaminophen) 7.5 Mg-325 Mg Tablet 1 Each PO Q4H Amlodipine Besylate 5 Mg Tablet 5 Mg PO HS Aspirin 81 Mg Tab.chew 81 Mg PO BID Losartan Potassium 50 Mg Tablet 50 Mg PO DAILY Miralax (Polyethylene Glycol 3350) 17 Gram Powd.pack 17 Gm PO DAILY Pantoprazole Sodium 40 Mg Tablet.dr 40 Mg PO DAILY Acidophilus-Pectin Capsule (Lactobacillus Acidophilus/Pect) 75 Million Cell-100 Mg Capsule 2 Each PO TIDWM Vitamin D3 (Cholecalciferol (Vitamin D3)) 125 Mcg (5000 Unit) Tablet 125 Mcg PO DAILY Potassium Chloride 20 Meq Tablet.er 20 Meq PO DAILY Lasix (Furosemide) 20 Mg Tablet 20 Mg PO DAILY PRN Levothyroxine (Levothyroxine Sodium) 88 Mcg Capsule 88 Mcg PO DAILY Reported Iron (Ferrous Sulfate) 325 Mg (65 Mg Iron) Tablet 325 Mg PO Q48H TAKES FRIDAY, FRIDAY, FRIDAY, FRIDAY Tylenol Extra Strength (Acetaminophen) 500 Mg Tablet 500 Mg PO TID PRN One Daily For Women 50+ Adv Tb (Multivitamins-Min/FA/Ginkgo) 400 Mcg-120 Mg Tablet 1 Each PO DAILY [Systane] 1 Drop BID 1 DROP EACH EYE BID Instructions to patient/family Please see electronic discharge instructions given to patient. Diagnosis/Problems Diagnosis/Problems (1) Intertrochanteric fracture of femur Status: Acute MOLLY MUIR DO Mar 27, 2022 06:50
[2022-03-27] MEDS: ARTIFICAL TEARS 0.4 ML UNIT DOSE (REFRESH PLUS) OU SCH (07:27)
[2022-03-27] MEDS: LACTOBACILLUS ACIDOPHILUS (PROBIOTIC) CAPSULE PO SCH (07:27)
[2022-03-27] MEDS: DOCUSATE SODIUM 100 MG (COLACE) CAP PO SCH (07:27)
[2022-03-27] MEDS: IRON SUCROSE 200 MG/10 ML (VENOFER) VIAL IV SCH (07:27)
[2022-03-27] MEDS: SENNA W/DOCUSATE (SENOKOT S) TABLET PO SCH (07:27)
[2022-03-27] MEDS: PANTOPRAZOLE 40 MG (PROTONIX) TAB PO SCH (07:27)
[2022-03-27] MEDS: hydrALAZINE (APRESOLINE) 25 MG TAB PO SCH (07:27)
[2022-03-27] MEDS: VITAMIN D3 125 MCG (5,000 UNITS) CAPSULE PO SCH (07:27)
[2022-03-27] MEDS: ASPIRIN 81 MG CHEW (CHILDREN'S ASA) PO SCH (07:27)
[2022-03-27] MEDS: LOSARTAN 50 MG (COZAAR) TAB PO SCH (07:27)
[2022-03-27] MEDS: polyethylene glycoL POWDER 17 GM (MIRALAX) PACK PO SCH ×2 (07:28)
[2022-03-27 08:00] VITALS: BP 179/80
--- NOTE | 2022-03-27 09:25 | Therapy Team Discharge Summary ---
Therapy Discharge Summary Discharge Recommendations Date of Discharge Physical Therapy Roll Left to Right (QC): 6 Sit to Lying (QC): 4 Lying to Sitting/Side of Bed(Q: 5 Sit to Stand (QC): 5 Chair/Loq-tz-Ygxbf Xfer(QC): 6 Toilet Transfer (QC): 5 Car Transfer (QC): 4 Does the Patient Walk: Yes Mode of Locomotion: Wheelchair Anticipated Mode of Locomotion: Both Walk 10 feet (QC): 5 Walk 50 ft with 2 Turns(QC): 6 Walk 150 ft (QC): 5 Walking 10ft on uneven surface: 5 Gait Assistive Device: FWW Does the Pt Use a Wheelchair: No Wheelchair Distance: 150' Wheel 50 ft with 2 turns (QC): 4 Wheel 150 ft (QC): 3 Type of Wheelchair: Manual 1 Step (curb) (QC): 88 4 Steps (QC): 88 12 Steps (QC): 88 Balance Sitting Static: Fair Balance Sitting Dynamic: Fair Balance-Standing Static: Poor Picking up an Object (QC): 6 Occupational Therapy Pt admitted to [facility] s/p L [facility]. At [facility], pt was required some assistance with ADLs, supervision with showering and total assist with footwear. Upon initial ev aluation, pt required set up with eating and oral care, SBA UE dressing, and total assist showering, LE dressing, footwear and toileting. OT Tx focused on increasing BUE strength and activity tolerance, and increasing safety and independence with ADLs and functional mobility. Pt made good functional progress towards goals, meeting all LTGs except footwear. Pt discharging back to [facility] today with planned assistance from staff, d/c from OT at this time. Decreased Activ Tolerance, Impaired Self-Care Skills Eating (QC): 6 Oral Hygiene (QC): 6 Shower/Bathe Self (QC): 3 Upper Body Dressing (QC): 6 Lower Body Dressing (QC): 5 On/Off Footwear (QC): 1 Toileting Hygiene (QC): 6 PT Treating And Pumping Supervisor Goals Treating And Pumping Supervisor Goals PT Senior Living Goals Time Frame: Mar 27, 2022 Roll Left to Right (QC): 3 (Rusty) Sit to Lying (QC): 3 (Rusty) Lying-Sitting on Side/Bed(QC): 3 (Rusty) Sit to Stand (QC): 3 (Rusty) Chair/Cbe-ly-Ucbwf Xfer(QC): 3 (Rusty) Toilet/Commode Transfer (QC): 3 (Rusty) Car Transfer (QC): 3 (Rusty) Does the Patient Walk: No and Walking Goal IS indicated Walk 10 feet (QC): 3 (Rusty) Walk 10ft-Uneven Surface(QC): 3 (Rusty) Walk 50ft with 2 Turns (QC): 88 Walk 150 ft (QC): 88 Wheel 50 feet with 2 turns (QC: 4 (SBA) Wheel 150 feet: 4 (SBA) 1 Step (curb) (QC): 88 4 Steps (QC): 88 12 Steps (QC): 88 Picking up an Object (QC): 4 (CGA using a automobile service station mechanic) OT Senior Living Goals Treating And Pumping Supervisor Goals Time Frame: Apr 12, 2022 Acute change in mental status: 0 Inattention: 0 Disorganized thinkin Altered level of consciousness: 0 Eating (QC): 6 (met) Oral Hygiene (QC): 6 (met) Toileting Hygiene (QC): 4 (met) Shower/Bathe Self (QC): 4 (met) Upper Body Dressing (QC): 5 (met) Lower Body Dressing (QC): 4 (met) On/Off Footwear (QC): 4 (not met) Additional Goals: 1-Demonstrate ADL Tasks, 2-Verbalize Understanding, 3- ImproveStrength/Omari 1=Demonstrate adherence to instructed precautions during ADL tasks. 2=Patient will verbalize/demonstrate understanding of assistive devices/modifications for ADL. 3=Patient will improve strength/tolerance for activity to enable patient to perform ADL's. JEWELS MCCORMICK OT Mar 27, 2022 09:25
[2022-03-27 10:00] VITALS: BP 148/65
[2022-03-27 11:00] VITALS: BP 148/65
--- NOTE | 2022-03-27 15:08 | Therapy Team Discharge Summary ---
Therapy Discharge Summary Discharge Recommendations Date of Discharge Mar 27, 2022 at 10:50 Physical Therapy Patient came to rehab with left hip IM sam. Upon evaluation patient performs rolling with max assist, supine <-> sit with dependence (assist of 2), sit <-> stand max assist, transfers max assist, car transfer max assist, able to forming process line worker the parallel bars with max assist but was not able to take any steps, can propel a manual WC 150' with min assist. Patient has been performing bed mobility and transfer training, balance and endurance training, functional str engthening, gait training, and education. Patient has made good progress and has met all of her director long term care goals. Now, patient performs rolling with independence, supine to sit with setup, sit to supine with CGA/SBA, sit <-> stand and transfers independent, car transfer CGA/SBA, ambulates 150' with a rolling walker with setup (including 50' with at least 2 turns of 90 degrees and 10' over an uneven surface), and can pick up man an object from the floor using a offset lithographic press operator with independence. Patient is being discharged from this facility today and will be discharged from PT at this time. Roll Left to Right (QC): 6 Sit to Lying (QC): 4 Lying to Sitting/Side of Bed(Q: 5 Sit to Stand (QC): 5 Chair/Uyi-rd-Hrlxr Xfer(QC): 6 Toilet Transfer (QC): 5 Car Transfer (QC): 4 Does the Patient Walk: Yes Mode of Locomotion: Wheelchair Anticipated Mode of Locomotion: Both Walk 10 feet (QC): 5 Walk 50 ft with 2 Turns(QC): 6 Walk 150 ft (QC): 5 Walking 10ft on uneven surface: 5 Gait Assistive Device: FWW Does the Pt Use a Wheelchair: No Wheelchair Distance: 150' Wheel 50 ft with 2 turns (QC): 4 Wheel 150 ft (QC): 3 Type of Wheelchair: Manual 1 Step (curb) (QC): 88 4 Steps (QC): 88 12 Steps (QC): 88 Balance Sitting Static: Fair Balance Sitting Dynamic: Fair Balance-Standing Static: Poor Picking up an Object (QC): 6 Occupational Therapy Decreased Activ Tolerance, Impaired Self-Care Skills Eating (QC): 6 Oral Hygiene (QC): 6 Shower/Bathe Self (QC): 3 Upper Body Dressing (QC): 6 Lower Body Dressing (QC): 5 On/Off Footwear (QC): 1 Toileting Hygiene (QC): 6 PT Senior Living Goals Senior Living Goals PT Regional Administrative Assistant Goals Time Frame: Mar 27, 2022 Roll Left to Right (QC): 3 (Rusty) Sit to Lying (QC): 3 (Rusty) Lying-Sitting on Side/Bed(QC): 3 (Rusty) Sit to Stand (QC): 3 (Rusty) Chair/Bxv-nz-Kkyfx Xfer(QC): 3 (Rusty) Toilet/Commode Transfer (QC): 3 (Rusty) Car Transfer (QC): 3 (Rusty) Does the Patient Walk: No and Walking Goal IS indicated Walk 10 feet (QC): 3 (uRsty) Walk 10ft-Uneven Surface(QC): 3 (Rusty) Walk 50ft with 2 Turns (QC): 88 Walk 150 ft (QC): 88 Wheel 50 feet with 2 turns (QC: 4 (SBA) Wheel 150 feet: 4 (SBA) 1 Step (curb) (QC): 88 4 Steps (QC): 88 12 Steps (QC): 88 Picking up an Object (QC): 4 (CGA using a offset lithographic press operator) OT Regional Administrative Assistant Goals Regional Administrative Assistant Goals Time Frame: Apr 12, 2022 Acute change in mental status: 0 Inattention: 0 Disorganized thinkin Altered level of consciousness: 0 Eating (QC): 6 (met) Oral Hygiene (QC): 6 (met) Toileting Hygiene (QC): 4 (met) Shower/Bathe Self (QC): 4 (met) Upper Body Dressing (QC): 5 (met) Lower Body Dressing (QC): 4 (met) On/Off Footwear (QC): 4 (not met) Additional Goals: 1-Demonstrate ADL Tasks, 2-Verbalize Understanding, 3- ImproveStrength/Omari 1=Demonstrate adherence to instructed precautions during ADL tasks. 2=Patient will verbalize/demonstrate understanding of assistive devices /modifications for ADL. 3=Patient will improve strength/tolerance for activity to enable patient to perform ADL's. DIAMANTE CANALES PT Mar 27, 2022 15:08
== END 2022-03-27 10:50 | DRG 560 ==
PROVIDERS: ADMIT Internal Medicine; ATTEND Internal Medicine
DX: S72.142D Displaced intertrochanteric fracture of left femur, subsequent encounter for closed fracture with routine healing (principal); D62 Acute posthemorrhagic anemia; I10 Essential (primary) hypertension; K59.09 Other constipation; R60.0 Localized edema; E03.9 Hypothyroidism, unspecified; F32.A Depression, unspecified; E88.09 Other disorders of plasma-protein metabolism, not elsewhere classified; Z79.82 Long term (current) use of aspirin; W19.XXXD Unspecified fall, subsequent encounter
CPT/HCPCS: 36410; 36415; 74022; 76937; 80053; 82607; 83540; 85025; 85652; 94664; 94760